=== PATIENT | female | born 1935 | race Caucasian/White ===

== ENCOUNTER 2023-02-28 08:55 | Outpatient (RCR) | payer MEDICARE, SELFPAY | END 2023-03-12 02:00 | disposition home or self-care (01) | LOC: PT 08:55 | PROVIDERS: PCP Family Medicine; Visit Provider Family Medicine | DX: M54.50 Low back pain, unspecified (principal) | CPT/HCPCS: 97110; 97140 ==

== ENCOUNTER 2023-03-28 07:15 | Outpatient (OUT) | payer MEDICARE, SELFPAY ==
[2023-03-28 09:15] LABS: Anion Gap 13.2; BUN Creatinine Ratio 28.6; Calcium 9.1 mg/dL (8.5-10.1); Carbon Dioxide 27.4 mmol/L (21.0-32.0); Chloride 101 mmol/L (98-107); Chol HDL Ratio 2.6; Cholesterol 134 mg/dL (<=200); Estimated GFR (African America 49 (>=60); Estimated GFR (Non-African Ame 40 (>=60); Glucose 119 mg/dL (74-106); HDL Cholesterol 51 mg/dL (40-60); LDL Cholesterol Calculated 72.2 mg/dL; Potassium 4.6 mmol/L (3.5-5.1); Sodium 137 mmol/L (136-145); Triglycerides 54 mg/dL (<=150); VLDL CHOLESTEROL 10.8 mg/dL
== END 2023-03-28 07:16 | disposition home or self-care (01) ==
LOC: LAB 07:18
PROVIDERS: PCP Family Medicine; Visit Provider Internal Medicine Interventional Cardiology
DX: I25.10 Atherosclerotic heart disease of native coronary artery without angina pectoris (principal); I50.22 Chronic systolic (congestive) heart failure
CPT/HCPCS: 36415; 80048; 80061

== ENCOUNTER 2023-08-30 08:43 | Outpatient (OUT) | payer MEDICARE, SELFPAY ==
--- NOTE | 2023-08-30 09:29 | CA_ITS ---
Patient Name: FEDE DE LEON MR#: [id number] : 1935 Exam Date: 08/30/2023 Ordering Doctor: DR DEVIN KELSEY M.D. ECHOCARDIOGRAM REPORT PROCEDURE: CA ECHO DOPPLER COMPLETE INDICATIONS: Congestive heart failure, pacemaker, left mastectomy, open heart surgery, diabetes COMPARISON: None. DESCRIPTION: COMPLETE ECHOCARDIOGRAM Real-time transthoracic echocardiography with 2D, M-mode, spectral and color flow Doppler performed. QUALITY: Technical quality was good. 64 , 140# , BSA LEFT VENTRICLE: Mild dilatation. Normal left ventricular wall thickness. Systolic function is difficult to assess due to poor sound transmission but appears moderately reduced. LV EF: Moderately reduced left ventricular ejection fraction, (35-40%). DIASTOLIC: Diastolic function is indeterminate. ATRIAL SEPTUM: LEFT ATRIUM: Mild dilatation. RIGHT ATRIUM: Mild dilatation. RIGHT VENTRICLE: Normal chamber size. Normal systolic function. Pacer wire present. TRICUSPID VALVE: Normal mobility and thickness. Status post ring repair with no stenosis with mild regurgitation. No evidence of pulmonary hypertension. RVSP 27 mmHg MITRAL VALVE: Mildly thickened with normal mobility. No evidence of mitral valve stenosis. Mild mitral annular calcification. Mild mitral regurgitation. AORTIC VALVE: Normal trileaflet appearance. Normal leaflet mobility. No evidence of aortic valve stenosis. Multifocal calcifications. Mild aortic regurgitation. AORTIC ROOT: Normal diameter and appearance. PULMONIC VALVE: Normal thickness and mobility. No stenosis. Trivial regurgitation. PERICARDIUM: No evidence of pericardial effusion. IVC: Collapses with inspirations. IVC is normal in size. PLEURA: CONCLUSION: 1. The left ventricle is mildly dilated. Systolic function is difficult to assess due to poor sound transmission but appears moderately reduced. LVEF is 35 to 40%. 2. Normal right ventricular size and systolic function. 3. Mild biatrial dilatation. 4. Mild tricuspid, mitral and aortic regurgitation. 5. Normal right-sided pressures. 6. Consider a MUGA scan for further assessment of the left ventricular systolic function. Adult Echocardiography Procedure Report Left Ventricle LVEDD (3.7 - 5.6 cm): 5.09 cm LVESD (2.2 - 4.0 cm): 3.87 cm LVIVS thickness (0.6 - 1.2 cm): 0.53 cm LVPW thickness (0.5 - 1.0 cm): 0.60 cm e': 0.07 m/s E - e': 9.20 LVOT Max Gradient: 2.60 mm[Hg] LVOT Area (cm2): 0.81 m/s Peak Velocity (LVOT): 0.81 m/s Mean Velocity (LVOT): 0.56 m/s LVOT Diameter 2.01 cm Left Atrium LA Volume Index (2D A2C): 25.30 ml/m2 Left Atrium Systolic Dimension: 3.57 cm Mitral Valve MV E to A Ratio: 0.97 Mitral Valve A-Wave Peak Velocity: 0.66 m/s Mitral Valve E-Wave Peak Velocity: 0.65 m/s Right Ventricle Aorta AO Root Diam: 3.19 cm Ascending Ao Diam: 2.84 cm Aortic Valve AoV Area (Peak Erasmo): 2.39 cm2, 2.39 cm2 AoV Area (VTI): 2.38 cm2, 2.38 cm2 Peak Velocity(Antegrade Flow): 1.06 m/s Peak Gradient(Antegrade Flow): 4.53 mm[Hg] Mean Velocity(Antegrade Flow): 0.77 m/s Mean Gradient(Antegrade Flow): 2.63 mm[Hg] Velocity Time Integral: 23.85 cm Tricuspid Valve Peak Velocity (Regurgitant Flow): 2.29 m/s, 2.46 m/s Pulmonic Valve Mean Gradient: 2.01 mm[Hg] Mean Velocity: 0.67 m/s Peak Velocity: 1.05 m/s, 0.87 m/s Peak Gradient: 3.02 mm[Hg], 4.38 mm[Hg] Right Atrium Right Atrium Systolic Pressure: 41.97 ml, 41.97 ml Dictated by: Devin Kelsey M.D. on 08/30/2023 at 19:51 Approved by: Devin Kelsey M.D. on 08/30/2023 at 20:01
== END 2023-08-30 08:44 | disposition home or self-care (01) ==
LOC: CARD 08:44
PROVIDERS: PCP Internal Medicine; Visit Provider Internal Medicine Interventional Cardiology
DX: I50.22 Chronic systolic (congestive) heart failure (principal)
CPT/HCPCS: 93306

== ENCOUNTER 2024-01-08 10:14 | Emergency (ER) | payer MEDICARE, SELFPAY ==
[2024-01-08 10:21] VITALS: BP 115/64; PULSE 64; TEMP 36.5; O2SAT 100; BMI 24.0
--- NOTE | 2024-01-08 10:34 | ED_ITS ---
HPI HPI - General Adult General Chief complaint: Head Injury Stated complaint: FALL Time Seen by Provider: 01/08/24 10:33 Source: patient Mode of arrival: walk-in Limitations: no limitations History of Present Illness HPI narrative: Patient is a 88-year-old female who is presenting to the ER today with chief complaint of a trip and fall against a lower cabinet at home. This was witnessed by the daughter Who is at bedside. Patient takes no blood thinners. Patient has minimal headache, no nausea or vomiting, no loss of consciousness. Patient has 2 superficial abrasions above the left eyebrow, mild ecchymosis noted to the lateral aspect of left eye as well. Patient has no significant headache, no neck pain, no other acute complaints. Patient does have mild ecchymosis noted distal to left knee. Patient was in the kitchen, patient was walking by a chair, tripped on the foot of the chair, falling forward. Patient tried to catch herself, therefore taking a few more steps, gaining momentum per daughter, and then falling down on her left knee and hitting the left side of her head against a cabinet. Patient had no loss of consciousness. No blood thinners. No neck pain. Patient has mild bruising underneath her left knee, no other acute complaints. This injury happened this morning. Patient was a home with her . 2 daughters at bedside. All systems are negative except as noted/marked. All systems reviewed and otherwise negative. Nurses note and vital signs reviewed and patient is not hypoxic. General: The patient appears well and in no apparent distress. Patient is resting comfortably on cart. Patient is not toxic, lethargic, or listless Skin: Warm, dry, no pallor noted. There is no rash noted. No petechiae, purpura. Head: Normocephalic, Patient has no midline or paracervical tenderness to palpation. Full range of cervical motion with no difficulty. Patient has a very small avulsion, approximately 3 mm above the left eyebrow, skin is laying down nicely. Patient has a jagged 0.25 cm superficial abrasion/laceration that does not spread gap open. Patient has mild ecchymosis noted to the lateral aspect of her left eye. Eye: Normal conjunctiva, no drainage, EOMI. PERRL. Patient has equal ocular motion with no difficulty, no signs of entrapment. No retrobulbar hematoma, no globe rupture, patient has mild to moderate tenderness to palpation to the superior lateral aspect of her orbital bones, no other orbital bone pain noted. Ears, Nose, Mouth, and Throat: oral mucosa is moist. Patient has no tenderness to palpation to her nasal bridge. Nares patent. Mouth without vesicles. Cardiovascular: Regular Rate and Rhythm, no murmur, gallop, rub Respiratory: Patient is in no distress, no accessory muscle use, lungs are clear to auscultation, no wheezing, rales or rhonchi Back: non-tender, no CVA tenderness bilaterally to percussion. No CT LS midline pain GI: no tenderness to palpation, no masses appreciated. No rebound, guarding, or rigidity noted. No distention Musculoskeletal: Patient has full range of motion of all of the extremities, no motor, sensory, or focal neurological deficits Neurological: A&O x4, normal speech Psychiatric: Cooperative Related Data Home Medications ?Medication ?Instructions ?Recorded ?Confirmed atorvastatin 40 mg tablet 40 mg PO DAILY 01/08/24 01/08/24 carvedilol 6.25 mg tablet 6.25 mg PO BID 01/08/24 01/08/24 empagliflozin 10 mg tablet 10 mg PO DAILY 01/08/24 01/08/24 (Jardiance) lisinopril 2.5 mg tablet 2.5 mg PO DAILY 01/08/24 01/08/24 potassium chloride 20 mEq 20 meq PO DAILY 01/08/24 01/08/24 tablet,extended release(part/cryst) (Klor-Con M) spironolactone 25 mg tablet 12.5 mg PO DAILY 01/08/24 01/08/24 Allergies Allergy/AdvReac Type Severity Reaction Status Date / Time cefdinir [From Omnicef] Allergy Severe Verified 01/08/24 10:21 nitrofurantoin Allergy Severe Verified 01/08/24 10:21 [From Macrobid] Opioid HPI Opioid Management Most Recent Opioid Data: 2 Last Pain Scale 2 01/08/24 10:40 Last MAR Pain Assessment 01/08/24 10:40 Exam Constitutional Vital Signs, click to edit/add: Last Vital Signs Temp 97.7 F 01/08/24 10:21 Pulse 84 01/08/24 14:05 Resp 16 01/08/24 14:05 BP 118/74 01/08/24 14:05 Pulse Ox 99 01/08/24 14:05 O2 Del Method Room Air 01/08/24 14:05 Course Vital Signs Vital signs: Vital Signs Temperature 97.7 F 01/08/24 10:21 Pulse Rate 64 01/08/24 10:21 Respiratory Rate 16 01/08/24 10:21 Blood Pressure 115/64 01/08/24 10:21 Pulse Oximetry 100 01/08/24 10:21 Oxygen Delivery Method Room Air 01/08/24 10:21 Temperature 97.7 F 01/08/24 10:21 Pulse Rate 84 01/08/24 14:05 Respiratory Rate 16 01/08/24 14:05 Blood Pressure 118/74 01/08/24 14:05 Pulse Oximetry 99 01/08/24 14:05 Oxygen Delivery Method Room Air 01/08/24 14:05 Medical Decision Making MDM Narrative Medical decision making narrative: Patient has no headache, mild pain to the Cipro lateral aspect of her left orbital bones, mild ecchymosis lateral left thigh, into superficial abrasions. Patient is not on blood thinners. We discussed ordering CT of the head, neck, or facial bones secondary to patient's symptoms. Patient has no neck pain. Full range of motion of cervical spinal no difficulty or pain. Patient has No headache. Secondary to patient's age, and the concern for 2 daughters at bedside, patient had a CT of the brain and orbital bones were noted To be extra cautious. Both CTs were negative. Education on closed head injury, using antibiotic ointment superficially to help with abrasions, and using ice were discussed at bedside at length along with signs and symptoms of closed head injury, what to look out for, what to return to the Emergency Room. Education on using ice and stretching In the next several days was discussed as well. Patient Possibility of having more pain tomorrow which most likely what happened. The next 3-5 days of patient's symptoms were discussed at bedside and may occur. No questions at discharge. Imaging Data CT scan - pelvis: Radiologist's impression: ITS Impressions Head CT 01/08/24 11:33 IMPRESSION: Moderate atrophy and white matter disease. Chronic small vessel ischemic changes are favored Left periorbital soft tissue swelling with no acute fracture Electronically authenticated by: BARRON RIOJAS Date: 01/08/2024 12:[address] 01/08/24 11:33 IMPRESSION: Moderate atrophy and white matter disease. Chronic small vessel ischemic changes are favored Left periorbital soft tissue swelling with no acute fracture Electronically authenticated by: BARRON RIOJAS Date: 01/08/2024 12:40 Discharge Plan Discharge Stand Alone Forms: Portal Instructions Chief Complaint: Head Injury Clinical Impression: Closed head injury, Facial contusion, Facial abrasion, Fall Patient Disposition: Home, Self-Care Time of Disposition Decision: 13:35 Condition: Fair Prescriptions / Home Meds: No Action atorvastatin 40 mg tablet 40 mg PO DAILY carvedilol 6.25 mg tablet 6.25 mg PO BID Jardiance 10 mg tablet 10 mg PO DAILY lisinopril 2.5 mg tablet 2.5 mg PO DAILY potassium chloride [Klor-Con M20] 20 mEq tablet,ER particles/crystals 20 meq PO DAILY spironolactone 25 mg tablet 12.5 mg PO DAILY Print Language: Luxembourgish Instructions: Head Injury (ED), Abrasion (ED), Fall Prevention (ED), Facial Contusion (ED) Additional Instructions: Use topical antibiotic ointment 3-4 times a day for the next 1 to 2 weeks. Use ice 20 minutes on, 20 minutes off. Do not use heat. Alternate Tylenol and anti-inflammatories every 4 hours as needed for pain Education on close head injury was done at bedside and on discharge paperwork. Any other acute concerns return to ER. A copy of your CT of your head and your CT of your orbits was given to you and discussed at bedside Referrals: Shaikh Locke MD [Primary Care Provider] - 1 week Discharge Date/Time: 01/08/24 14:14
[2024-01-08] MEDS: ACETAMINOPHEN 500 MG TABLET PO (10:40)
[2024-01-08] MEDS: BACITRACIN OINTMENT 28.4 GM TUBE 1 APPLIC TOPICAL (10:41)
[2024-01-08] MEDS: ADACEL DIPH,PERTUSS(ACELL),TET VAC/PF 0.5 ML ADULT SYRINGE IM (11:07)
--- NOTE | 2024-01-08 11:33 | CT_ITS ---
The [address] [address] Patient Name: FEDE DE LEON MRN: [id number] date: 1935 Sex: F Assigned Patient Location: ER Current Patient Location: ER Accession/Order Number: [id number] Exam Date: 01/08/2024 11:45 Report Date: 01/08/2024 12:40 At the request of: TRAVIS LOPES Procedure: CT orbit BI wo con EXAMINATION: CT head/brain wo con, CT orbit BI wo con, 01/08/2024 11:45 AM EDT HISTORY: Trauma, pain COMPARISON: None. TECHNIQUE: CT scan of the head was performed without IV contrast. CT dose reduction technique was used, including Automated Exposure Control. FINDINGS: BRAIN: Moderate diffuse atrophy. Mild to moderate white matter hypoattenuation. No acute intracranial hemorrhage or mass CSF SPACES: No hydrocephalus, subarachnoid hemorrhage, or mass. Appropriate for age. SKULL: No fracture, mass, or other significant visible lesion. SINUSES: 3 mm of soft tissue attenuation posterior right maxillary sinus, mucoperiosteal thickening favored ORBITS: No fracture of the orbits is observed . Left periorbital soft tissue swelling OTHER: Negative CT/CT orbit BI wo con IMPRESSION: Moderate atrophy and white matter disease. Chronic small vessel ischemic changes are favored Left periorbital soft tissue swelling with no acute fracture Electronically authenticated by: BARRON RIOJAS Date: 01/08/2024 12:40
--- NOTE | 2024-01-08 11:33 | CT_ITS ---
The [address] [address] Patient Name: FEDE DE LEON MRN: [id number] date: 1935 Sex: F Assigned Patient Location: ER Current Patient Location: ER Accession/Order Number: [id number] Exam Date: 01/08/2024 11:45 Report Date: 01/08/2024 12:40 At the request of: TRAVIS LOPES Procedure: CT head/brain wo con EXAMINATION: CT head/brain wo con, CT orbit BI wo con, 01/08/2024 11:45 AM EDT HISTORY: Trauma, pain COMPARISON: None. TECHNIQUE: CT scan of the head was performed without IV contrast. CT dose reduction technique was used, including Automated Exposure Control. FINDINGS: BRAIN: Moderate diffuse atrophy. Mild to moderate white matter hypoattenuation. No acute intracranial hemorrhage or mass CSF SPACES: No hydrocephalus, subarachnoid hemorrhage, or mass. Appropriate for age. SKULL: No fracture, mass, or other significant visible lesion. SINUSES: 3 mm of soft tissue attenuation posterior right maxillary sinus, mucoperiosteal thickening favored ORBITS: No fracture of the orbits is observed . Left periorbital soft tissue swelling OTHER: Negative CT/CT head/brain wo con IMPRESSION: Moderate atrophy and white matter disease. Chronic small vessel ischemic changes are favored Left periorbital soft tissue swelling with no acute fracture Electronically authenticated by: BARRON RIOJAS Date: 01/08/2024 12:40
[2024-01-08 14:05] VITALS: BP 118/74; PULSE 84; O2SAT 99
== END 2024-01-08 14:14 | disposition home or self-care (01) ==
PROVIDERS: Emergency Provider Emergency Medicine; PCP Internal Medicine
DX: S09.8XXA Other specified injuries of head, initial encounter (principal); S00.83XA Contusion of other part of head, initial encounter; S00.81XA Abrasion of other part of head, initial encounter; W01.198A Fall on same level from slipping, tripping and stumbling with subsequent striking against other object, initial encounter; Z79.899 Other long term (current) drug therapy; Z23 Encounter for immunization
CPT/HCPCS: 70450; 70480; 90471; 90715; 99284

== ENCOUNTER 2024-01-27 10:57 | Outpatient (RCR) | payer MEDICARE, SELFPAY | END 2024-03-06 11:31 | disposition home or self-care (01) | LOC: PT 10:57 | PROVIDERS: PCP Internal Medicine; Visit Provider Internal Medicine | DX: M54.9 Dorsalgia, unspecified (principal) | CPT/HCPCS: 20561; 97110; 97140; 97161 ==

== ENCOUNTER 2024-02-17 14:04 | Outpatient (OUT) | payer MEDICARE, SELFPAY ==
--- NOTE | 2024-02-17 14:00 | NM_ITS ---
[address] [address] Patient Name: FEDE DE LEON MRN: [id number] date: 1935 Sex: F Assigned Patient Location: [place] Current Patient Location: Accession/Order Number: [id number] Exam Date: 02/17/2024 14:00 Report Date: 02/18/2024 08:55 At the request of: DEVIN KELSEY Procedure: NM muga NUCLEAR MEDICINE REST GATED CARDIAC STUDY (MUGA) HISTORY: Chronic systolic heart failure. Breast cancer. Syncope. COMPARISON: None. METHOD: Following the injection of 24.2 mCi of [id number], a routine MUGA study was obtained. Appropriate computer-assisted analysis of the data was performed. FINDINGS: There is mild decreased left ventricular contractility. The left ventricular ejection fraction is decreased at 46%. [place] muga IMPRESSION: Decreased LVEF = 46%. Electronically authenticated by: SHARLA BERNARD Date: 02/18/2024 08:55
== END 2024-02-17 14:05 | disposition home or self-care (01) ==
LOC: NM 14:04
PROVIDERS: PCP Internal Medicine; Visit Provider Internal Medicine Interventional Cardiology
DX: I50.22 Chronic systolic (congestive) heart failure (principal); Z85.3 Personal history of malignant neoplasm of breast; R55 Syncope and collapse
CPT/HCPCS: 78472; A9560

== ENCOUNTER 2024-08-12 07:40 | Outpatient (OUT) | payer MEDICARE, SELFPAY ==
--- OUTSIDE RECORDS SUMMARY | 2024-08-12 07:45 | XMS_ITS | CCD ---
Author Organization [facility] Care Team Providers Care Senior Electrical Controls Engineer Name Role Phone PHYSICIAN, DEFAULT Unavailable Unavailable PHYSICIAN, DEFAULT Unavailable Unavailable CHUYITA PETERS Unavailable Unavailable PHYSICIAN, DEFAULT Unavailable Unavailable PHYSICIAN, DEFAULT Unavailable Unavailable FRAN, CHUYITA Unavailable Unavailable PHYSICIAN, DEFAULT Unavailable Unavailable PHYSICIAN, DEFAULT Unavailable Unavailable FRAN, CHUYITA Unavailable Unavailable TuanEstrlelita Attending Unavailable FRAN, DR SALGUERO Attending Unavailable FRAN, DR SALGUERO Admitting Unavailable FRAN, DR SALGUERO Primary Care Unavailable FRAN, DR SALGUERO Primary Care Unavailable MOUKADEVIN WALTER Admitting Unavailable MOUKARBEL, DEVIN Attending Unavailable ZIEBER, DR ERNIE Casey Consulting Unavailable MOUKARBEL, DEVIN Consulting Unavailable FRAN, DR SALGUERO Primary Care Unavailable MOUKARBELDEVIN Admitting Unavailable MOUKARBEL, DEVIN Consulting Unavailable MOUKAJOSE ANGEL, DEVIN Attending Unavailable MILAN FLOWERS Attending Unavailable MOUKARBEL, DEVIN Attending Unavailable SHERRIMARIA DEL CARMEN Manriquez Referring Unavailable SHERRI, MARIA DEL CARMEN Referring Unavailable MOUKARBEL, DEVIN Attending Unavailable Maddox SEX THERAPIST-RESTAURANT SHIFT SUPERVISOR, Jose N Primary Care Pr ovider Fran FITZPATRICK, Chuyita Aranda Unavailable Ray Banda MD Primary Care Provider Varsha WIND TUNNEL TECHNICIAN, Jose Unavailable Adia Reynolds Unavailable ATRUN OLIVIER Referring Unavailable FAWEVELYND, LADD Primary Care Unavailable FAMAEVE, LADD Referring Unavailable FAWWAD, LADD Primary Care Unavailable ANNA MELENDEZ Referring Unavailable FAWWAD, LADD Primary Care Unavailable JORY, LADD Referring Unavailable MACD, LADD Primary Care Unavailable MADDOX, JOSE N Referring Unavaila ble MADDOX, JOSE N Primary Care Unavaila ble SWAPNIL RAMÍREZ Attending Unavailable SHAIKH CORLEY Referring Unavailable MADDOX, JOSE N Primary Care Unavaila ble ANNA MELENDEZ Referring Unavailable MADDOX, JOSE N Primary Care Unavaila ble Thuan FLORES, Adilia Unavailable Elliott Hendrix MD Primary Care Provider Devin Kelsey MD Unavailable Era FITZPATRICK, Saurav Mosqueda Unavailable Lili FLORES, Adia Unavailable SHAIKH CORLEY Attending Unavailable SHAIKH CORLEY Attending Unavailable SHAIKH CORLEY Attending Unavailable JOSE MADDOX Attending UnavailMARIELA Ramos Attending Unavailable ELLIOTT HENDRIX Attending Unavailable ELLIOTT HENDRIX Attending Unavailable Allergies Allergy Classification Reported Allergen(s) Allergy Type Date of Onset Reaction(s) Facility (2 sources) cefdinir; Translations: [OMNICEF] Drug Allergy 3 [facility] Repository (2 sources) Nitrofurantoin Drug Allergy 3 [facility] Repository (13 sources) cefdinir; Translations: [CEFDINIR] Drug Allergy 4 Other [facility] Repository (1 source) NITROFURANTOIN MONOHYD/M-CRYST; Translations: [NITROFURANTOIN MONOHYD/M-CRYST] Propensity to adverse reactions to drug (disorder) 4 [facility] Repository (12 sources) Nitrofurantoin; Translations: [NITROFURANTOIN] Drug Allergy 3 Other [facility] Medications Current Medications Medication Drug Class(es) Dates Sig (Normalized) Sig (Original) acetaminophen 500 mg oral tablet (11 sources) Start: 11-06-2018 take 1 tablet by mouth every eight hours as needed for pain acetaminophen (Tylenol) 500 MG tablet Take 1 tablet by mouth every 8 (eight) hours if needed for moderate pain 11/06/2018 Active take 1 tablet by henrietta th every eight hours as needed for pain acetaminophen (TYLENOL ARTHRITIS) 650 mg 8 hr tablet Take 1 tablet (650 mg total) by mouth every 8 (eight) hours as needed for pain. Active acetaminophen 325 mg / HYDROcodone bitartrate 5 mg oral tablet (10 sources) Opioid Agonist Start: 07-28-2024 End: 08-27-2024 take 1 tablet by mouth twice daily as needed for pain HYDROcodone-acetaminophen (Ora) 5-325 MG tablet Indications: Chronic pain syndrome Take 1 tablet by mouth 2 (two) times a day as needed for moderate pain 60 tablet 07/28/2024 08/27/2024 Active Start: 06-18-2024 End: 07-18-2024 take 1 tablet by mouth once HYDROcodone-acetaminophen (Ora) 5-325 MG tablet Indications: Lumbosacral spondylosis without myelopathy Take 1 tablet by mouth every 12 (twelve) hours if needed for severe pain 60 tablet 06/18/2024 07/18/2024 End: 07-28-2024 take 1 tablet by mouth once daily HYDROcodone-acetaminophen (Ora) 5-325 MG tablet Take 1 tablet by mouth Daily 07/28/2024 Discontinued (Reorder) take 1 tablet by henrietta th twice daily as needed for pain HYDROcodone-acetaminophen (NORCO) 5-325 mg per tablet Take 1 tablet by mouth 2 (two) times a day as needed for pain. Active aspirin 81 mg delayed release oral tablet (11 sources) Platelet Aggregation Inhibitor, Nonsteroidal Anti-inflammatory Drug take 1 tablet by mouth once daily aspirin 81 MG EC tablet take 1 tablet by oral route every day Oral Active atorvastatin 40 mg oral tablet (11 sources) HMG-CoA Reductase Inhibitor take 1 tablet by mouth once daily atorvastatin (Lipitor) 40 MG tablet take 1 tablet by oral route every day Oral Active B-complex with vitamin C tablet (1 source) take 1 tablet by mouth in the morning B-complex with vitamin C tablet Take 1 tablet by mouth in the morning. Active Calcium (10 sources) Phosphate Binder, Calcium calcium 150 MG tablet as directed Orally Active calcium carbonate 1250 mg / cholecalciferol 200 unt oral tablet (1 source) Vitamin D take 1 tablet by mouth once in the morning calcium carbonate-vitamin D3 (OSCAL 500 + D) 500 mg(1,250mg) -200 units per tablet Take 1 tablet by mouth in the morning and 1 tablet in the evening. Take with meals. Active carvedilol 3.125 mg oral tablet (11 sources) alpha-Adrenergic Carolina, beta-Adrenergic Carolina Start: take 1 tablet by mouth in the morning carvedilol (Coreg) 3.125 MG tablet Indications: Chronic systolic heart failure (CMS/HCC) , Essential hypertension (CMS/HCC) Take 1 tablet (3.125 mg) by mouth in the morning and 1 tablet (3.125 mg) in the evening. Take with meals. 180 tablet 03/26/2024 Active take 1 tablet by henrietta th in the morning, then take 1 tablet by mouth at mealtime carvediloL (COREG) 6.25 mg tablet Take 1 tablet (6.25 mg total) by mouth in the morning and 1 tablet (6.25 mg total) in the evening. Take with meals. Active cholecalciferol 0.025 mg oral capsule (10 sources) Vitamin D cholecalciferol (Vitamin D-3) 25 MCG (1000 UT) capsule Vitamin D3 1000 Active empagliflozin 10 mg oral tablet (11 sources) Sodium-Glucose Cotransporter 2 Inhibitor take 1 tablet by mouth in the morning empagliflozin (Jardiance) 10 MG Take 1 tablet by mouth in the morning. Active ezetimibe 10 mg oral tablet (10 sources) Dietary Cholesterol Absorption Inhibitor Start: End: take 1 tablet by mouth in the morning ezetimibe (Zetia) 10 MG tablet Take 10 mg by mouth in the morning. 03/13/2024 03/13/2025 Active lisinopril 2.5 mg oral tablet (11 sources) Angiotensin Converting Enzyme Inhibitor take 1 tablet by mouth once daily lisinopril 2.5 MG tablet take 1 tablet by oral route every day Oral Active magnesium oxide 400 mg oral tablet (1 source) take 1 tablet by mouth in the morning magnesium oxide (MAGOX) 400 mg tablet Take 1 tablet (400 mg total) by mouth in the morning. Active spironolactone 25 mg oral tablet (11 sources) Aldosterone Antagonist Start: 018 take 0.5 tablet by mouth once daily spironolactone (Aldactone) 25 MG tablet Take 0.5 tablets by mouth 1 (one) time each day. 08/27/2018 Active take 1 tablet by mouth in the mo rning spironolactone (ALDACTONE) 25 mg tablet Take 1 tablet (25 mg total) by mouth in the morning. Active Completed/Discontinued Medications Medication Drug Class(es) Dates Sig (Normalized) Sig (Original) Fluad Quadrivalent syringe (5 sources) Start: 07-11-2023 End: 07-16-2024 Fluad Quadrivalent syringe Inject 0.5 mL into the shoulder, thigh, or buttocks 1 (one) time 07/11/2023 07/16/2024 Discontinued (Therapy completed) Start: 07-11-2023 Fluad Quadriva lent syringe Inject 0.5 mL into the shoulder, thigh, or buttocks 1 (one) time 07/11/2023 Active furosemide 40 mg oral tablet (6 sources) Loop Diuretic End: 07-16-2024 furosemide (Lasix) 40 MG tablet 1 (one) time each day at the same time. 07/16/2024 Discontinued (Therapy completed) take 1 tablet by mouth twice blanquita ly furosemide (LASIX) 40 mg tablet Take 1 tablet (40 mg total) by mouth 2 (two) times a day. Active magnesium gluconate 550 mg oral tablet (5 sources) End: 07-16-2024 take 1 tablet by mouth in the morning magnesium 30 MG tablet Take 1 tablet by mouth in the morning. 07/16/2024 Discontinued (Therapy completed) microencapsulated potassium chloride 20 meq extended release oral tablet (6 sources) End: 07-16-2024 potassium chloride CR (KLOR-CON) 20 MEQ ER tablet 1 (one) time each day at the same time. 07/16/2024 Discontinued (Therapy completed) take 1 dose by mouth in the morn ing potassium chloride (KLOR-CON) 20 mEq packet Take 1 packet (20 mEq total) by mouth in the morning and 1 packet (20 mEq total) before bedtime. Active Problems Active Problems Problem Classification Problem Date Documented Date Episodic/Chronic Administrative/social admission (2 sources) Advance directive discussed with patient; Translations: [Other specified counseling] 07-08-2024 Episodic Cancer of breast (5 sources) History of malignant neoplasm of breast; Translations: [Personal history of malignant neoplasm of breast] Onset: 07-28-2024 07-28-2024 Episodic Cardiac dysrhythmias (12 sources) Ventricular tachycardia; Translations: [Ventricular tachycardia] Onset: 02-11-2023 02-11-2023 Chronic Chronic kidney disease (12 sources) Chronic kidney disease stage 3B ; Translations: [Stage 3b chronic kidney disease (HCC)] Onset: 02-11-2023 02-11-2023 Chronic Chronic kidney disease (4 sources) Chronic kidney disease; Translations: [Chronic kidney disease, stage 3b] Onset: 03-20-2023 Conduction disorders (20 sources) Encounter for adjustment and management of automatic implantable cardiac defibrillator; Translations: [Presence of cardiac pacemaker] Onset: 04-30-2013 Resolved: 07-16-2024 Chronic Congestive heart failure; nonhypertensive (20 sources) Acute combined systolic (congestive) and diastolic (congestive) heart failure; Translations: [Chronic systolic (congestive) heart failure] Onset: 04-30-2013 Chronic Coronary atherosclerosis and other heart disease (20 sources) Atherosclerotic heart disease of [place] coronary artery without angina pectoris; Translations: [Coronary atherosclerosis] Onset: 01-22-2023 Chronic Diabetes mellitus with complications (17 sources) Disorder of kidney due to diabetes mellitus; Translations: [Type 2 diabetes mellitus with diabetic nephropathy] Onset: 02-11-2023 02-11-2023 Chronic Disorders of lipid metabolism (20 sources) Hyperlipidemia; Translations: [Hyperlipidemia, unspecified] Onset: 02-11-2023 Resolved: 07-16-2024 02-11-2023 Chronic Essential hypertension (13 sources) Essential hypertension; Translations: [Essential (primary) hypertension] Onset: 02-11-2023 02-11-2023 Chronic Heart valve disorders (11 sources) Rheumatic disorders of both mitral and aortic valves; Translations: [Tricuspid valve disorder, non-rheumatic] Onset: 04-30-2013 03-26-2024 Chronic Nonspecific chest pain (2 sources) Other chest pain; Translations: [Other chest pain] Onset: 06-08-2024 Episodic Other acquired deformities (9 sources) Postural kyphosis; 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, cervicothoracic region] Onset: 07-16-2024 07-16-2024 Chronic Other aftercare (4 sources) Drug therapy finding; Translations: [Other alf (current) drug therapy] Onset: 07-28-2024 07-28-2024 Episodic Other aftercare (4 sources) Polypharmacy ; Translations: [Other alf (current) drug therapy] Onset: 08-01-2024 08-01-2024 Episodic Other ear and sense organ disorders (3 sources) Asymmetrical sensorineural hearing loss; Translations: [Sensorineural hearing loss, bilateral] 07-13-2024 Chronic Other nervous system disorders (8 sources) Chronic pain; Translations: [Other chronic pain] Onset: 02-11-2023 02-11-2023 Chronic Other nervous system disorders (4 sources) Chronic pain syndrome; Translations: [Chronic pain syndrome] Onset: 02-11-2023 07-28-2024 Chronic Genet-; endo-; and myocarditis; cardiomyopathy (except that caused by tuberculosis or sexually transmitted disease) (3 sources) Primary cardiomyopathy; Translations: [Cardiomyopathy, unspecified] Onset: 04-30-2013 03-26-2024 Chronic Screening and history of mental health and substance abuse codes (4 sources) Patient encounter status; Translations: [Encounter for screening examination for other mental health and behavioral disorders] 07-08-2024 Episodic Spondylosis; intervertebral disc disorders; other back problems (12 sources) Lumbosacral spondylosis without myelopathy; Translations: [Spondylosis without myelopathy or radiculopathy, lumbosacral region] Onset: 02-11-2023 02-11-2023 Chronic Spondylosis; intervertebral disc disorders; other back problems (4 sources) Pain in thoracic spine; Translations: [Pain in thoracic spine] Onset: 06-24-2024 06-24-2024 Episodic Unclassified (3 sources) LOW BACK PAIN, UNSPECIFIED; Translations: [LOW BACK PAIN, UNSPECIFIED] Onset: 02-14-2023 Unclassified (1 source) Other ventricular tachycardia; Translations: [Other ventricular tachycardia] Onset: 08-02-2023 Unclassified (1 source) Low back pain, unspecified; Translations: [Low back pain, unspecified] Onset: 06-24-2024 Past or Other Problems Problem Classification Problem Date Documented Da te Episodic/Chronic Cancer of breast (10 sources) Primary malignant neoplasm of breast; Translations: [Malignant neoplasm of unspecified site of unspecified female breast] Onset: 11-30-2015 Resolved: 07-28-2024 03-26-2024 Chronic Coronary atherosclerosis and other heart disease (2 sources) Presence of aortocoronary bypass graft; Translations: [Presence of aortocoronary bypass graft] Onset: 08-02-2023 Episodic E Codes: Fall (10 sources) Fall; Translations: [Unspecified fall, initial encounter] Onset: 03-26-2024 Resolved: 07-16-2024 03-26-2024 Episodic Mood disorders (10 sources) Mood disorders Onset: 03-26-2024 03-26-2024 Other screening for suspected conditions (not mental disorders or infectious disease) (12 sources) Depression of left ventricular systolic function; Translations: [Abnormal result of cardiovascular function study, unspecified] Onset: 02-11-2023 02-11-2023 Episodic Residual codes; unclassified (2 sources) Other specified postprocedural states; Translations: [Other specified postprocedural states] Onset: 03-13-2024 Episodic Unclassified (1 source) LOW BACK PAIN, UNSPECIFIED; Translations: [LOW BACK PAIN, UNSPECIFIED] Onset: 02-12-2023 Unclassified (1 source) Other ventricular tachycardia; Translations: [Other ventricular tachycardia] Onset: 08-02-2023 Results Test Name Value Interpretation Reference Range Facility Drugs of abuse panel Screen (U)on 07-28-2024 Amphetamines Ql (U) Negative [facility] Barbiturates Ql (U) Negative [facility] Benzodiazepines Ql (U) Negative [facility] Benzoylecgonine Ql (U) Negative [facility] Carboxy tetrahydrocannabinol (Mec) [Mass/Mass] Negative [facility] Interpretation and review of laboratory results Normal [facility] Methadone (U) [Mass/Vol] Negative [facility] Methylenedioxymethamphetamin e Screen Ql (U) Negative [facility] Morphine (U) [Mass/Vol] Negative [facility] Opiates Ql (U) Negative [facility] oxyCODONE Ql (U) Negative [facility] Phencyclidine Ql (U) Negative [facility] Reference Lab Test ID Negative [facility] Tricyclic antidepressants [Mass/Vol] Negative [facility] BASIC METABOLIC PANLon 07-14 Anion gap [Moles/Vol] 9 mmol/L Normal 5-15 [facility] Comment on above: Performed By: #### C BC, BMP, 1751-7, 66376-0, 2777-1, 2731-8, 74736-3 #### [facility] ([id number]) [address], [address] [place] [address] Calcium [Mass/Vol] 9.5 mg/dL Normal 8.5-10.5 [facility] Comment on above: Performed By: #### Renetta BC, BMP, 1750-7, 84305-5, 2777-1, 2731-8, 86580-3 #### [facility] ([id number]) [address], [address] [place] [address] Chloride [Moles/Vol] 99 mmol/L Normal 98-109 [facility] Comment on above: Performed By: #### Renetta BC, BMP, 1750-, 44625-9, 2777-1, 2731-8, 84116-1 #### [facility] ([id number]) [address], [address] [place] [address] CO2 [Moles/Vol] 29 mmol/L Normal 22-32 [facility] Comment on above: Performed By: #### Renetta BC, BMP, 1750-7, 37667-6, 2777-1, 2731-8, 23129-6 #### [facility] ([id number]) [address], [address] [place] [address] Creatinine [Mass/Vol] 1.39 mg/dL High 0.40-1.00 [facility] Comment on above: Result Comment: METH OD TRACEABLE TO IDMS STANDARD Performed By: #### Renetta BC, BMP, 1750-7, 23531-4, 2777-1, 2731-8, 92421-2 #### [facility] ([id number]) [address], [address] [place] [address] GFR/1.73 sq M.predicted cornelius g non-blacks MDRD (S/P/Bld) [Vol rate/Area] 37 mL/min/{1.73_m2} Low >59 [facility] Comment on above: Result Comment: Reported eGFR is based on the CKD-EPI 2020 equation that does not use a race coefficient. Performed By: #### C BC, BMP, 175-7, 49709-6, 2777-1, 2731-8, 18462-4 #### [facility] ([id number]) [address], [address] [place] [address] Glucose [Mass/Vol] 121 mg/dL High 65-99 [facility] Comment on above: Performed By: #### C ZHEN, BMP, 1750-7, 74528-2, 2777-1, 2731-8, 60320-3 #### [facility] ([id number]) [address], [address] [place] [address] Potassium [Moles/Vol] 3.9 mmol/L Normal 3.5-5.0 [facility] Comment on above: Performed By: #### C BC, BMP, 1750-7, 22088-5, 2777-1, 2731-8, 29080-8 #### [facility] ([id number]) [address] [address] [place] [address] Sodium [Moles/Vol] 137 mmol/L Normal 134-146 [facility] [place] Comment on above: Performed By: #### C BC, BMP, 1750-7, 39526-1, 2777-1, 2731-8, 82984-9 #### [facility] ([id number]) [address], [address] [place] [address] Urea nitrogen [Mass/Vol] 32 mg/dL High 5-27 [facility] Comment on above: Performed By: #### C BC, BMP, 175-7, 57929-6, 2777-1, 2731-8, 67933-0 #### [facility] ([id number]) [address], [address] [place] [address] Auditory function testson 10 -14-2024 Right Ear: Mild sloping to profound sensorineural hearing loss above 250 Hz Left Ear: Mild to severe sensorineural hearing loss [facility] METABOLIC PANLon 06-24 Anion gap [Moles/Vol] 12 mmol/L Normal 5-15 [facility] Comment on above: Performed By: #### 2 4331-1 #### [facility] ([id number]) [address] [address] [place] [address] Calcium [Mass/Vol] 9.4 mg/dL Normal 8.5-10.5 [facility] [place] Comment on above: Performed By: #### 2 4331-1 #### [facility] ([id number]) [address] [address] [place] [address] Chloride [Moles/Vol] 101 mmol/L Normal 98-109 [facility] Comment on above: Performed By: #### 2 4331-1 #### [facility] ([id number]) [address] [address] [place] [address] CO2 [Moles/Vol] 24 mmol/L Normal 22-32 [facility] Comment on above: Performed By: #### 2 4331-1 #### [facility] ([id number]) [address] [address] [place] [address] Creatinine [Mass/Vol] 1.60 mg/dL High 0.40-1.00 [facility] Comment on above: Result Comment: METH OD TRACEABLE TO IDMS STANDARD Performed By: #### 2 4331-1 #### [facility] ([id number]) [address] [address] [place] [address] GFR/1.73 sq M.predicted cornelius g non-blacks MDRD (S/P/Bld) [Vol rate/Area] 31 mL/min/{1.73_m2} Low >59 [facility] Comment on above: Result Comment: Reported eGFR is based on the CKD-EPI 2020 equation that does not use a race coefficient. Performed By: #### 2 4331-1 #### [facility] ([id number]) [address], [address] [place] [address] Glucose [Mass/Vol] 111 mg/dL High 65-99 [facility] [place] Comment on above: Performed By: #### 2 4331-1 #### [facility] ([id number]) [address] [address] [place] [address] Potassium [Moles/Vol] 5.0 mmol/L Normal 3.5-5.0 [facility] Comment on above: Performed By: #### 2 4331-1 #### [facility] ([id number]) [address], [address] [place] [address] Sodium [Moles/Vol] 137 mmol/L Normal 134-146 [facility] [place] Comment on above: Performed By: #### 2 4331-1 #### [facility] ([id number]) [address], [address] [place] [address] Urea nitrogen [Mass/Vol] 43 mg/dL High 5-27 [facility] Comment on above: Performed By: #### 2 4331-1 #### [facility] ([id number]) [address], [address] [place] [address] CBC AND AUTO DIFFon 25-20 24 ABSOLUTE BASOPHIL 0.0 X10E9/L Normal 0.0-0.2 [facility] Comment on above: Performed By: #### 2 4331-1 #### [facility] ([id number]) [address] [address] [place] [address] ABSOLUTE NEUTROPHIL 3.8 X10E9/L Normal 1.5-6.6 [facility] Comment on above: Performed By: #### 2 4331-1 #### [facility] ([id number]) [address] [place] [address] Basophils/100 WBC (Bld) 0.8 % Normal [facility] Comment on above: Performed By: #### 2 4331-1 #### [facility] ([id number]) [address], [address] [place] [address] Eosinophils (Bld) [#/Vol] 0.2 10*3/uL Normal 0.0-0.4 [facility] Comment on above: Performed By: #### 2 4331-1 #### [facility] ([id number]) [address] [place] [address] Eosinophils/100 WBC (Bld) 2.7 % Normal [facility] Comment on above: Performed By: #### 2 4331-1 #### [facility] ([id number]) [address], [address] [place] [address] Erythrocyte distribution wid th (RBC) [Ratio] 15.5 % High 11.5-15.0 [facility] Comment on above: Performed By: #### 2 4331-1 #### [facility] ([id number]) [address], [address] [place] [address] Hematocrit (Bld) [Volume fraction] 43.0 % Normal 35-47 [facility] Comment on above: Performed By: #### 2 4331-1 #### [facility] ([id number]) [address] [address] [place] [address] Hemoglobin (Bld) [Mass/Vol] 14.4 g/dL Normal 11.7-15. 5 [facility] Comment on above: Performed By: #### 2 4331-1 #### [facility] ([id number]) [address], [address] [place] [address] Lymphocytes (Bld) [#/Vol] 1.4 10*3/uL Normal 1.0-3.5 [facility] Comment on above: Performed By: #### 2 4331-1 #### [facility] ([id number]) [address], [address] [place] [address] Lymphocytes/100 WBC (Bld) 22.9 % Normal [facility] Comment on above: Performed By: #### 2 4331-1 #### [facility] ([id number]) [address], [address] [place] [address] MCH (RBC) [Entitic mass] 31.8 pg Normal 27-34 [facility] Comment on above: Performed By: #### 2 4331-1 #### [facility] ([id number]) [address], [address] [place] [address] MCHC (RBC) [Mass/Vol] 33.6 g/dL Normal 32-36 [facility] Comment on above: Performed By: #### 2 4331-1 #### [facility] ([id number]) [address], [address] [place] [address] MCV (RBC) [Entitic vol] 95 fL Normal 80-100 [facility] Comment on above: Performed By: #### 2 4331-1 #### [facility] ([id number]) [address], [address] [place] [address] Monocytes (Bld) [#/Vol] 0.8 10*3/uL Normal 0-0.9 [facility] Comment on above: Performed By: #### 2 4331-1 #### [facility] ([id number]) [address], [address] [place] [address] Monocytes/100 WBC (Bld) 12.3 % Normal [facility] Comment on above: Performed By: #### 2 4331-1 #### [facility] ([id number]) [address], [address] [place] [address] Neutrophils/100 WBC (Bld) 61.3 % Normal [facility] Comment on above: Performed By: #### 2 4331-1 #### [facility] ([id number]) [address], [facility] [address] [place] [address] Platelet mean volume (Bld) [Entitic vol] 9.4 fL Normal 7-12 [facility] Comment on above: Performed By: #### 2 4331-1 #### [facility] ([id number]) [address], [facility] [address] [place] [address] Platelets (Bld) [#/Vol] 183 10*3/uL Normal 150-450 [facility] Comment on above: Performed By: #### 2 4331-1 #### [facility] ([id number]) [address], [facility] [address] [place] [address] RBC COUNT 4.54 X10E12/L Normal 3.80-5.20 [facility] Comment on above: Performed By: #### 2 4331-1 #### [facility] ([id number]) [address], [address] [address] WBC (Bld) [#/Vol] 6.2 10*3/uL Normal 4.0-11.0 [facility] Comment on above: Performed By: #### 2 4331-1 #### [facility] ([id number]) [address], [facility] [address] [place] [address] MAGNESIUMon 06-24-2024 Magnesium [Mass/Vol] 2.8 mg/dL High 1.8-2.6 [facility] Comment on above: Performed By: #### 2 4331-1 #### [facility] ([id number]) [address], [address] [place] [address] MICROALBUMIN - ALBUMIN:CREAT ININE URINE RATIOon 06-24-2024 ALB/CREAT RATIO 16.1 mg/g creat Normal 0.0-30.0 [facility] Comment on above: Performed By: #### 2 4331-1 #### [facility] ([id number]) [address], [address] [place] [address] Albumin DL <= 20 mg/L (U) [Mass/Vol] 1.5 mg/dL Normal 0.0-1.9 [facility] Comment on above: Performed By: #### 2 4331-1 #### [facility] ([id number]) [address], [address] [place] [address] URINE CREAT 93.40 mg/dL Normal [facility] Comment on above: Performed By: #### 2 4331-1 #### [facility] ([id number]) [address], [address] [place] [address] URINALYSISon 06-24-2024 Bilirubin Ql (U) Negative Normal NEG [facility] Comment on above: Performed By: #### 2 4331-1 #### [facility] ([id number]) [address], [address] [place] [address] BLOOD/HGB Trace Abnormal NEG [facility] Comment on above: Performed By: #### 2 4331-1 #### [facility] ([id number]) [address], [address] [place] [address] Color (U) YELLOW Normal YELLOW [facility] Comment on above: Performed By: #### 2 4331-1 #### [facility] ([id number]) [address], [address] [place] [address] Glucose Ql (U) >1000 Abnormal NEG [facility] Comment on above: Performed By: #### 2 4331-1 #### [facility] ([id number]) [address], [address] [place] [address] Ketones Ql (U) Negative Normal NEG [facility] Comment on above: Performed By: #### 2 4331-1 #### [facility] ([id number]) [address], [address] [place] [address] Leukocyte esterase Test stri p Ql (U) Large Abnormal NEG [facility] Comment on above: Result Comment: HIGH CONCENTRATIONS OF GLUCOSE MAY DECREASE THE REACTIVITY OF THE DIPSTICK LEUKOCYTE TEST PAD. Performed By: #### 2 4331-1 #### [facility] ([id number]) [address], [address] [place] [address] MUCOUS PRESENT Abnormal NONE [facility] Comment on above: Performed By: #### 2 4331-1 #### [facility] ([id number]) [address], [address] [place] [address] Nitrite Ql (U) Positive Abnormal NEG [facility] Comment on above: Performed By: #### 2 4331-1 #### [facility] ([id number]) [address], [address] [place] [address] pH (U) 5.5 [pH] Normal 5.0-8.5 [facility] Comment on above: Performed By: #### 2 4331-1 #### [facility] ([id number]) [address], [address] [place] [address] Protein Ql (U) Negative Normal NEG [facility] Comment on above: Performed By: #### 2 4331-1 #### [facility] ([id number]) [address], [address] [place] [address] R.B.CELLS 0 /hpf Normal 0-5 [facility] Comment on above: Performed By: #### 2 4331-1 #### [facility] ([id number]) [address], [address] [place] [address] Specific gravity (U) [Rel density] 1.020 Normal 1.003-1.03 5 [facility] Comment on above: Performed By: #### 2 4331-1 #### [facility] ([id number]) [address], [address] [place] [address] SQUAMOUS EPITHELIUM 1 /hpf Normal 0-5 [facility] Comment on above: Performed By: #### 2 4331-1 #### [facility] ([id number]) [address], [address] [place] [address] TURBIDITY CLEAR Normal CLEAR [facility] Comment on above: Performed By: #### 2 4331-1 #### [facility] ([id number]) [address], [address] [place] [address] Urobilinogen (U) [Mass/Vol] mg/dL Normal <1.1 [facility] Comment on above: Performed By: #### 2 4331-1 #### [facility] ([id number]) [address], [address] [place] [address] W.B.CELLS 17 /hpf High 0-5 [facility] Comment on above: Performed By: #### 2 4331-1 #### [facility] ([id number]) [address], [address] [place] [address] Vitamin D+Metabolites [Mass/ Vol]on 06-24-2024 VITAMIN D 25 HYD TOT 48.1 ng/mL Normal 30-100 [facility] Comment on above: Result Comment: Vitamin D status 25 [place] Vitamin D Deficiency <20 ng/mL Insufficiency 20-29 ng/mL Sufficiency 30-100 ng/mL Toxicity >100 ng/mL NOTE: A pediatric reference range has not been established by the clinical study manager of this kit. The [employer] recommends a Vitamin D level of = or >20ng/mL in infants and children. Performed By: #### 2 4331-1 #### [facility] ([id number]) [address] [place] [address] Office Visiton 06-08-2024 Follow-up visit [id number] Daysi Hood 1935 F Date Provider Department Center 06/08/2024 [facility] Family History Problem Relation Age of Onset Coronary artery disease Other Family Status - Relation Status Age at Other Level of Service:66573 [place] OFFICE/OUTPATIENT ESTABLISHED MOD MDM 30 MIN Reason for Visit and Comments: Chest Pain [786638] - Patient here because she had recent episode of chest pain. [facility] 3604-09-2024 37 LM on daughter Giovanna's VM. Also called patient's phone to make her aware, and LM. Normal [facility] 36on 04-08-2024 36 Good morning, Patients daughter called and states that she took her mother in recently to PCP for wellness check. Patients BP was 90/50.PCP recommended reducing her carvedilol to 3.125 mg. Daughter wanted to get the OK from you before doing so. Please advise. [facility] HGB A1C (GLYCO-HGB)on 2023 Glucose [Mass/Vol] 143 mg/dL Normal [facility] Comment on above: Performed By: #### 2 4331-1 #### [facility] ([id number]) [address] [place] [address] HbA1c (Bld) [Mass fraction] 6.6 % High 4.4-5.6 [facility] Comment on above: Result Comment: NOTE ADA Guidelines Result HgbA1c Normal : less than 5.7 % Prediabetes : 5.7 % to 6.4 % Diabetes : > 6.4 % Use with caution in patients with abnormal hemoglobin variants as the half-life of red blood cells and in vivo glycation rates are affected. Performed By: #### 2 4331-1 #### [facility] ([id number]) [address], [address] [place] [address] Lipid 1996 panelon 4 Cholesterol [Mass/Vol] 101 mg/dL Low 150-200 [facility] Comment on above: Performed By: #### 2 4331-1 #### [facility] ([id number]) [address], [address] [place] [address] Cholesterol in HDL [Mass/Vol] 45 mg/dL Normal >39 [facility] Comment on above: Result Comment: HDL <40 mg/dL - High Risk HDL > or = 40mg/dL- Desirable HDL >60 mg/dL - Negative Risk Performed By: #### 2 4331-1 #### [facility] ([id number]) [address], [address] [place] [address] Cholesterol in LDL [Mass/Vol] 44 mg/dL Normal <130 [facility] Comment on above: Result Comment: LDL <100 mg/dL - Desirable LDL >160 mg/dL - High Risk Performed By: #### 2 4331-1 #### [facility] ([id number]) [address], [address] [place] [address] Cholesterol in VLDL [Mass/Vol] 12 mg/dL Normal 0-30 [facility] Comment on above: Performed By: #### 2 4331-1 #### [facility] ([id number]) [address], [address] [place] [address] CHOLESTEROL:HDL 2.2 Normal 1.0-5.0 [facility] Comment on above: Performed By: #### 2 4331-1 #### [facility] ([id number]) [address] [place] [address] Triglyceride [Mass/Vol] 61 mg/dL Normal 27-150 P [facility] Comment on above: Performed By: #### 2 4331-1 #### [facility] ([id number]) [address] [place] [address] Office Visiton 03-13-2024 Follow-up visit [id number] Castillo 1935 F Date Provider Department Center 03/13/2024 DEVIN GARCIA Family History Problem Relation Age of Onset Coronary artery disease Other Family Status - Relation Status Age at Other Level of Service:37776 [place] OFFICE/OUTPATIENT ESTABLISHED MOD MDM 30 MIN Normal [facility] Orders Onlyon 02-18-2024 Orders Only [id number] Daysi Hood 1935 Date Provider Department Center 02/18/2024 DEVIN GARCIA Family History Problem Relation Age of Onset Coronary artery disease Other Family Status - Relation Status Age at Other Normal [facility] BASIC METABOLIC PANLon 01-13 Anion gap [Moles/Vol] 9 mmol/L Normal 5-15 [facility] Comment on above: Performed By: #### 2 4331-1 #### [facility] ([id number]) [address], [address] [place] [address] Calcium [Mass/Vol] 8.7 mg/dL Normal 8.5-10.5 [facility] Comment on above: Performed By: #### 2 4331-1 #### [facility] ([id number]) [address] [place] [address] Chloride [Moles/Vol] 106 mmol/L Normal 98-109 [facility] Comment on above: Performed By: #### 2 4331-1 #### [facility] ([id number]) [address], [address] [place] [address] CO2 [Moles/Vol] 24 mmol/L Normal 22-32 [facility] Comment on above: Performed By: #### 2 4331-1 #### [facility] ([id number]) [address], [address] [place] [address] Creatinine [Mass/Vol] 1.24 mg/dL High 0.40-1.00 [facility] Comment on above: Result Comment: METH OD TRACEABLE TO IDMS STANDARD Performed By: #### 2 4331-1 #### [facility] ([id number]) [address], [address] [place] [address] GFR/1.73 sq M.predicted cornelius g non-blacks MDRD (S/P/Bld) [Vol rate/Area] 42 mL/min/{1.73_m2} Low >59 [facility] Comment on above: Result Comment: Reported eGFR is based on the CKD-EPI 2020 equation that does not use a race coefficient. Performed By: #### 2 4331-1 #### [facility] ([id number]) [address], [address] [place] [address] Glucose [Mass/Vol] 100 mg/dL High 65-99 [facility] Comment on above: Performed By: #### 2 4331-1 #### [facility] ([id number]) [address], [address] [place] [address] Potassium [Moles/Vol] 4.8 mmol/L Normal 3.5-5.0 [facility] Comment on above: Performed By: #### 2 4331-1 #### [facility] ([id number]) [address], [address] [place] [address] Sodium [Moles/Vol] 139 mmol/L Normal 134-146 [facility] Comment on above: Performed By: #### 2 4331-1 #### [facility] ([id number]) [address], [address] [place] [address] Urea nitrogen [Mass/Vol] 33 mg/dL High 5-27 [facility] Comment on above: Performed By: #### 2 4331-1 #### [facility] ([id number]) [address], [address] [place] [address] ALBUMINon 12-17-2023 Albumin [Mass/Vol] 4.3 g/dL Normal 3.2-5.3 [facility] Comment on above: Performed By: #### C BC, BMP, 175-7, 87111-7, 2777-1, 2731-8, 18714-5 #### [facility] ([id number]) [address], [address] [place] [address] BASIC METABOLIC PANLon 12-16 Anion gap [Moles/Vol] 11 mmol/L Normal 5-15 [facility] Comment on above: Performed By: #### C BC, BMP, 1750-7, 68333-4, 2777-1, 2731-8, 63147-4 #### [facility] ([id number]) [address], [address] [place] [address] Calcium [Mass/Vol] 9.7 mg/dL Normal 8.5-10.5 [facility] Comment on above: Performed By: #### C BC, BMP, 1750-7, 79922-3, 2777-1, 2731-8, 11780-4 #### [facility] ([id number]) [address], [address] [place] [address] Chloride [Moles/Vol] 105 mmol/L Normal 98-109 [facility] Comment on above: Performed By: #### C BC, BMP, 175-7, 67976-4, 2777-1, 2731-8, 38511-7 #### [facility] ([id number]) [address], [address] [place] [address] CO2 [Moles/Vol] 23 mmol/L Normal 22-32 [facility] Comment on above: Performed By: #### C MELVIN FONTAINE, 1750-, 36931-4, 7-1, 2731-8, 09961-8 #### [facility] ([id number]) [address], [address] [place] [address] Creatinine [Mass/Vol] 1.35 mg/dL High 0.40-1.00 [facility] Comment on above: Result Comment: METH OD TRACEABLE TO IDMS STANDARD Performed By: #### C MELVIN FONTAINE, 1751-03, , 2776-1, 273-8, 14752-2 #### [facility] ([id number]) [address], [address] [place] [address] GFR/1.73 sq M.predicted cornelius g non-blacks MDRD (S/P/Bld) [Vol rate/Area] 38 mL/min/{1.73_m2} Low >59 [facility] Comment on above: Result Comment: Reported eGFR is based on the CKD-EPI 2020 equation that does not use a race coefficient. Performed By: #### MELVIN LI, 1751-03, 97909-7, 2776-1, 2731-8, 76385-1 #### [facility] ([id number]) [address], [address] [place] [address] Glucose [Mass/Vol] 106 mg/dL High 65-99 [facility] Comment on above: Performed By: #### C ZHEN, MELVIN, 1751-03, 93890-6, 2776-, 273-8, 27320-7 #### [facility] ([id number]) [address], [address] [place] [address] Potassium [Moles/Vol] 4.6 mmol/L Normal 3.5-5.0 [facility] Comment on above: Performed By: #### C BC, BMP, 1750-7, 35304-9, 2777-1, 2731-8, 44019-1 #### [facility] ([id number]) [address], [facility] [address] [place] [address] Sodium [Moles/Vol] 139 mmol/L Normal 134-146 [facility] Comment on above: Performed By: #### C BC, BMP, 1750-7, 52765-7, 2777-1, 2731-8, 26318-0 #### [facility] ([id number]) [address] [address] [place] [address] Urea nitrogen [Mass/Vol] 39 mg/dL High 5-27 [facility] Comment on above: Performed By: #### C BC, BMP, 1750-7, 93734-2, 7-1, 273-8, 51701-9 #### [facility] ([id number]) [address], [facility] [address] [place] [address] COMPLETE BLOOD COUNTon 12-16 Erythrocyte distribution wid th (RBC) [Ratio] 15.0 % Normal 11.5-15.0 [facility] Comment on above: Performed By: #### C BC, BMP, 1750-7, 42117-7, 7-1, 2731-8, 13487-4 #### [facility] ([id number]) [address], [facility] [address] [place] [address] Hematocrit (Bld) [Volume fraction] 43.0 % Normal 35-47 [facility] Comment on above: Performed By: #### C BC, BMP, 1750-7, 97747-6, 7-1, 2731-8, 72055-6 #### [facility] ([id number]) [address] [address] [place] [address] Hemoglobin (Bld) [Mass/Vol] 14.3 g/dL Normal 11.7-15. 5 [facility] Comment on above: Performed By: #### C BC, BMP, 1750-7, 13946-3, 7-1, 2731-8, 74959-6 #### [facility] ([id number]) [address], [address] [place] [address] MCH (RBC) [Entitic mass] 31.4 pg Normal 27-34 [facility] Comment on above: Performed By: #### C BC, BMP, 1750-7, 10311-9, 7-1, 2731-8, 17106-3 #### [facility] ([id number]) [address], [address] [place] [address] MCHC (RBC) [Mass/Vol] 33.4 g/dL Normal 32-36 [facility] Comment on above: Performed By: #### Renetta FONTAINE, BMP, 1750-, 75564-8, 2776-1, 273-8, 63475-0 #### [facility] ([id number]) [address], [address] [place] [address] MCV (RBC) [Entitic vol] 94 fL Normal 80-100 [facility] Comment on above: Performed By: #### Renetta FONTAINE, BMP, 1750-, 59889-3, 2776-1, 2731-8, 98086-9 #### [facility] ([id number]) [address], [address] [place] [address] Platelet mean volume (Bld) [Entitic vol] 9.7 fL Normal 7-12 [facility] Comment on above: Performed By: #### Renetta BC, BMP, 1750-, 58769-0, 2776-1, 273-8, 17487-7 #### [facility] ([id number]) [address], [address] [place] [address] Platelets (Bld) [#/Vol] 202 10*3/uL Normal 150-450 [facility] Comment on above: Performed By: #### C BC, BMP, 1750-, 42113-1, 7-1, 2731-8, 32374-9 #### [facility] ([id number]) [address], [address] [place] [address] RBC COUNT 4.57 X10E12/L Normal 3.80-5.20 [facility] Comment on above: Performed By: #### C BC, BMP, 1751-03, 07361-7, 2776-1, 2731-8, 53971-2 #### [facility] ([id number]) [address], [address] [place] [address] WBC (Bld) [#/Vol] 5.9 10*3/uL Normal 4.0-11.0 [facility] Comment on above: Performed By: #### C BC, BMP, 1751-03, 62829-1, 2776-1, 2731-8, 71637-9 #### [facility] ([id number]) [address] [place] [address] MAGNESIUMon 12-17-2023 Magnesium [Mass/Vol] 2.7 mg/dL High 1.8-2.6 [facility] Comment on above: Performed By: #### C BC, BMP, 1751-03, 62742-0, 2776-, 273-8, 97179-7 #### [facility] ([id number]) [address], [address] [place] [address] MICROALBUMIN - ALBUMIN:CREAT ININE URINE RATIOon 12-17-2023 ALB/CREAT RATIO 27.8 mg/g creat Normal 0.0-30.0 [facility] Comment on above: Performed By: #### 2 4331-1 #### [facility] ([id number]) [address], [address] [place] [address] Albumin DL <= 20 mg/L (U) [Mass/Vol] 2.8 mg/dL High 0.0-1.9 [facility] Comment on above: Performed By: #### 2 4331-1 #### [facility] ([id number]) [address], [address] [place] [address] URINE CREAT 100.73 mg/dL Normal [facility] Comment on above: Performed By: #### 2 4331-1 #### [facility] ([id number]) [address], [address] [place] [address] PHOSPHORUSon 12-17-2023 Phosphate [Mass/Vol] 3.4 mg/dL Normal 2.4-4.9 [facility] Comment on above: Performed By: #### C BC, BMP, 1751-7, 27281-5, 2777-1, 2731-8, 14813-7 #### [facility] ([id number]) [address], [address] [place] [address] Parathyrin.intact [Mass/Vol] on 12-17-2023 PTH INTACT 66 pg/mL Normal 12-88 [facility] Comment on above: Performed By: #### C BC, BMP, 1751-7, 90288-2, 2777-1, 2731-8, 30342-5 #### [facility] ([id number]) [address], [address] [place] [address] URINALYSISon 12-17-2023 Bilirubin Ql (U) Negative Normal NEG [facility] Comment on above: Performed By: #### SAULO Villa #### [facility] ([id number]) [address], [address] [place] [address] BLOOD/HGB Negative Normal NEG [facility] Comment on above: Performed By: #### SAULO Villa #### [facility] ([id number]) [address], [address] [place] [address] Color (U) YELLOW Normal YELLOW [facility] Comment on above: Performed By: #### U Yadira, SAULO #### [facility] ([id number]) [address], [address] [place] [address] Glucose Ql (U) >1000 Abnormal NEG [facility] Comment on above: Performed By: #### Guille May, SAULO #### [facility] ([id number]) [address], [address] [place] [address] Ketones Ql (U) Negative Normal NEG [facility] Comment on above: Performed By: #### Guille May, SAULO #### [facility] ([id number]) [address], [address] [place] [address] Leukocyte esterase Test stri p Ql (U) Large Abnormal NEG [facility] Comment on above: Result Comment: HIGH CONCENTRATIONS OF GLUCOSE MAY DECREASE THE REACTIVITY OF THE DIPSTICK LEUKOCYTE TEST PAD. Performed By: #### Guille May, SAULO #### [facility] ([id number]) [address], [address] [place] [address] Nitrite Ql (U) Negative Normal NEG [facility] Comment on above: Performed By: #### Guille May, SAULO #### [facility] ([id number]) [address], [address] [place] [address] pH (U) 5.5 [pH] Normal 5.0-8.5 [facility] Comment on above: Performed By: #### Guille May, SAULO #### [facility] [facility] ([id number]) [address], [address] [place] [address] Protein Ql (U) Negative Normal NEG [facility] Comment on above: Performed By: #### Guille aMy, SAULO #### [facility] ([id number]) [address], [address] [place] [address] R.B.CELLS 2 /hpf Normal 0-5 [facility] Comment on above: Performed By: #### Guille May CHIDIJOCE #### [facility] ([id number]) [address], [address] [place] [address] RENAL EPITHELIUM <1 High 0 [facility] Comment on above: Performed By: #### Guille May CHIDIJOCE #### [facility] ([id number]) [address], [address] [place] [address] Specific gravity (U) [Rel density] 1.019 Normal 1.003-1.03 5 [facility] Comment on above: Performed By: #### Guille May CHIDIJOCE #### [facility] ([id number]) [address], [address] [place] [address] SQUAMOUS EPITHELIUM 8 /hpf High 0-5 [facility] Comment on above: Performed By: #### Guille May CHIDIJOCE #### [facility] ([id number]) [address], [address] [place] [address] TRANSITIONAL EPITH 1 /hpf High 0 [facility] [place] Comment on above: Performed By: #### Guille May CHIDIJOCE #### [facility] ([id number]) [address], [address] [place] [address] TURBIDITY HAZY Abnormal CLEAR [facility] Comment on above: Performed By: #### Guille May CHIDIJOCE #### [facility] ([id number]) [address], [address] [place] [address] Urinalysis dipstick W Reflex Microscopic panel (U) URINE RECEIVED WITHOUT PRESERVATIVE-DELAY S IN TRANSPORT MAY AFFECT RESULTS.INTERPRET WITH CAUTION AND CLINICAL CORRELATION IS RECOMMENDED. Normal [facility] Comment on above: Performed By: #### Guille May CHIDIJOCE #### [facility] ([id number]) [address], [address] [place] [address] Urobilinogen (U) [Mass/Vol] mg/dL Normal <1.1 [facility] Comment on above: Performed By: #### SAULO Villa #### [facility] ([id number]) [address] [place] [address] W.B.CELLS 137 /hpf High 0-5 [facility] Comment on above: Performed By: #### SAULO Villa #### [facility] ([id number]) [address] [place] [address] WBC CLUMPS FEW Abnormal NONE [facility] Comment on above: Performed By: #### Guille May, SAULO #### [facility] ([id number]) [address] [facility], [address] [place] [address] Vitamin D+Metabolites [Mass/ Vol]on 12-17-2023 VITAMIN D 25 HYD TOT 60.0 ng/mL Normal 30-100 [facility] Comment on above: Result Comment: Vitamin D status 25 [place] Vitamin D Deficiency <20 ng/mL Insufficiency 20-29 ng/mL Sufficiency 30-100 ng/mL Toxicity >100 ng/mL NOTE: A pediatric reference range has not been established by the clinical study manager of this kit. The [employer] recommends a Vitamin D level of = or >20ng/mL in infants and children. Performed By: #### C BC, [facility], 1751-7, 08978-4, 2777-1, 2731-8, 48881-4 #### [facility] ([id number]) [address] [place] [address] 36on 11-29-2023 36 Spoke with patient and she is agreeable to muga scan at [facility]. Order faxed. [facility] 36on 11-14-2023 36 Regarding echo performed on 08/30/2023: MD Katalina Fields MA Echo showed improved ejection fraction however it was difficult to assess. I want her to get a MUGA scan [RNA scan for LVEF]. I think this has to be done at [facility]. [facility] does do muga scans. Is it ok that she have it here? Please advise. Thanks. Normal [facility] HGB A1C (GLYCO-HGB)on 2022 Glucose [Mass/Vol] 140 mg/dL Normal [facility] Comment on above: Performed By: #### 2 4331-1 #### [facility] ([id number]) [address], [address] [place] [address] HbA1c (Bld) [Mass fraction] 6.5 % High 4.4-5.6 [facility] Comment on above: Result Comment: NOTE ADA Guidelines Result HgbA1c Normal : less than 5.7 % Prediabetes : 5.7 % to 6.4 % Diabetes : > 6.4 % Use with caution in patients with abnormal hemoglobin variants as the half-life of red blood cells and in vivo glycation rates are affected. Performed By: #### 2 4331-1 #### [facility] ([id number]) [address], [address] [place] [address] Lipid 1996 panelon Cholesterol [Mass/Vol] 152 mg/dL Normal 150-200 [facility] Comment on above: Performed By: #### 2 4331-1 #### [facility] ([id number]) [address], [address] [place] [address] Cholesterol in HDL [Mass/Vol] 46 mg/dL Normal >39 [facility] Comment on above: Result Comment: HDL <40 mg/dL - High Risk HDL > or = 40mg/dL- Desirable HDL >60 mg/dL - Negative Risk Performed By: #### 2 4331-1 #### [facility] ([id number]) [address], [facility] [address] [place] [address] Cholesterol in LDL [Mass/Vol] 88 mg/dL Normal <130 [facility] Comment on above: Result Comment: LDL <100 mg/dL - Desirable LDL >160 mg/dL - High Risk Performed By: #### 2 4331-1 #### [facility] ([id number]) [address], [address] [place] [address] Cholesterol in VLDL [Mass/Vol] 18 mg/dL Normal 0-30 [facility] Comment on above: Performed By: #### 2 4331-1 #### [facility] ([id number]) [address], [address] [place] [address] CHOLESTEROL:HDL 3.3 Normal 1.0-5.0 [facility] Comment on above: Performed By: #### 2 4331-1 #### [facility] ([id number]) [address], [facility] [address] [place] [address] Triglyceride [Mass/Vol] 88 mg/dL Normal 27-150 [facility] Comment on above: Performed By: #### 2 4331-1 #### [facility] ([id number]) [address], [facility] [address] [place] [address] Office Visiton 08-02-2023 Follow-up visit [id number] Daysi Hood 1935 F Date Provider Department Center 08/02/2023 [facility] Family History Problem Relation Age of Onset Coronary artery disease Other Family Status - Relation Status Age at Other Level of Service:26448 [place] OFFICE/OUTPATIENT ESTABLISHED MOD MDM 30-39 MIN Reason for Visit and Comments: Follow-up [310108] Normal [facility] NM STRESS/REST MULTIon 01-22 NM STRESS/REST MULTI Patient: DAYSI HOOD Exam Date: 01/22/2023 : 1935 Gender:F Ordering : DR DEVIN KELSEY M.D. Admission #: [id number] Family : Order #: [id number] CLICK HERE TO VIEW EXAM RADIOLOGY REPORT PROCEDURE: RADIONUCLIDE IMAGING STRESS/REST MULTI COMPARISON: None. 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 WHITFIELD . For more details please see separate cardiac stress test report. FINDINGS: QUALITY OF STUDY: Excellent. PERFUSION DEFECT: LOCATION: Apical anterior. [place]. SIZE: Small (1-2 segments). SEVERITY: Severe. TYPE: Persistent. WALL MOTION: Akinesis: Dyskinesis: [place]. LV SIZE: Normal. 73 mL. TID / TCD: 0.9 LVEF: Normal. Calculated EF 56%. SUMMARY: Myocardial perfusion imaging study has ABNORMAL findings. CONCLUSION: 1. 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 2. Left ventricle ejection fraction is at lower limits of normal. Dictated by: Ernie Mobley M.D. on 01/22/2023 at 14:43 Approved by: Ernie Mobley M.D. on 01/22/2023 at 14:48 Normal [facility] ECHOCARDIO M/2D COMPLETEon 0 01-04-2023 ECHOCARDIO M/2D COMPLETE Patient: DAYSI HOOD Exam Date: 01/04/2023 : 1935 Gender:F Ordering : DR DEVIN KELSEY M.D. Admission #: [id number] Family : Order #: [id number] CLICK HERE TO VIEW EXAM ECHOCARDIOGRAM REPORT PROCEDURE: CARDIO PULMONARY ECHOCARDIO M/2D COMP INDICATIONS: Chronic systolic congestive heart failure, CABG, pacemaker, diabetes COMPARISON: None. DESCRIPTION: COMPLETE ECHOCARDIOGRAM Real-time transthoracic echocardiography with 2D, M-mode, spectral and color flow Doppler performed. QUALITY: Technical quality was good. LEFT VENTRICLE: Normal chamber size. Normal left ventricular wall thickness. Systolic function is severely reduced. Abnormal septal motion likely related to pacing. LV EF: Severely reduced left ventricular ejection fraction, (25%). DIASTOLIC: Grade I diastolic dysfunction. ATRIAL SEPTUM: LEFT ATRIUM: Mildly dilated. RIGHT ATRIUM: Mildly dilated. RIGHT VENTRICLE: Normal chamber size. Pacer wire present. Systolic function is normal. TRICUSPID VALVE: Normal mobility and thickness. No stenosis with mild regurgitation. No evidence of pulmonary hypertension. RVSP 22 mmHg MITRAL VALVE: Normal mobility and thickness. No evidence of mitral valve stenosis. Mild mitral annular calcification. Mild mitral regurgitation. AORTIC VALVE: Normal trileaflet appearance. Thickened aortic valve. Mildly diminished mobility. No evidence of aortic valve stenosis. Mild aortic regurgitation. AORTIC ROOT: Normal diameter and appearance. PULMONIC VALVE: Normal thickness and mobility. No stenosis. PERICARDIUM: No evidence of pericardial effusion. IVC: Collapses with inspirations. IVC is normal in size. PLEURA: CONCLUSION: 1. Left ventricular systolic function is severely reduced. LVEF is 25%. 2. The right ventricle is normal in size with normal systolic function. 3. Mild mitral and aortic regurgitation. 4. Normal right-sided pressures. Adult Echocardiography Procedure Report Left Ventricle LVEDD (3.7 - 5.6 cm): 4.94 cm LVESD (2.2 - 4.0 cm): 3.79 cm LVIVS thickness (0.6 - 1.2 cm): 0.72 cm LVPW thickness (0.5 - 1.0 cm): 0.66 cm e': 0.04 m/s E - e': 12.37 LVOT Max Gradient: 0.85 mm[Hg] Peak Velocity (LVOT): 0.46 m/s LVOT Diameter 2.23 cm Left Ventricular Ejection Fraction: 25 % Left Atrium LA Volume Index (2D A2C): 40.85 ml, 40.85 ml Left Atrium Systolic Dimension: 3.63 cm Mitral Valve MV E to A Ratio: 0.65 Mitral Valve A-Wave Peak Velocity: 0.76 m/s Mitral Valve E-Wave Peak Velocity: 0.49 m/s Right Ventricle Aorta AO Root Diam: 3.19 cm Aortic Valve AoV Area (Peak Erasmo): 1.89 cm2, 1.89 cm2 Peak Velocity(Antegrade Flow): 0.95 m/s Peak Gradient(Antegrade Flow): 3.62 mm[Hg] Tricuspid Valve Peak Velocity (Regurgitant Flow): 2.15 m/s, 2.18 m/s Peak Velocity: 1.07 m/s Pulmonic Valve Peak Velocity: 0.79 m/s, 0.74 m/s Peak Gradient: 2.51 mm[Hg], 2.20 mm[Hg] Right Atrium Dictated by: Devin Kelsey M.D. on 01/04/2023 at 15:36 Approved by: Devin Kelsey M.D. on 01/04/2023 at 16:02 Normal [facility] XR Bone Density (DEXA)on XR Bone Density (DEXA) [facility] lt[facility]-Matched Total(g/cm2)(%)T-S core(%)Z-Score Femurs.62070-9.611 9+1.0 Impression: The mean BMD and corresponding T-score indicated above indicate Low Bone Mass (Osteopenia) and places the patient at a mild to moderate increased risk for fracture. There may be a future risk of developing osteoporosis. Recommend follow-up exam in 1 year, sooner as clinically necessary. [facility] ltAge-Matched Total(g/cm2)(%)T-S core(%)Z-Score L1-L41.59323-8.413 7+2.5 Impression: The mean BMD and corresponding T-score indicated above indicate Normal Bone Mass and places the patient no significant risk for fracture. This information can serve as a baseline with which to compare future studies. Recommend follow-up exam in 2 years, sooner as clinically necessary. Comment: The T-score is the primary focus of the interpretation of a patient???s bone mineral density measurement. The T-score is the number of standard deviations an individual is above or below the mean value for a young female having normal bone mass. The WHO defines osteoporosis based on the T-score value??? +1.0 to ???0.9 : Normal bone mass -1.0 to -2.5 : Osteopenia and thus may be at future risk of fracture -2.6 to ???5 : Osteoporosis and ???at significantly increased risk of fracture??? A Z-Score of -2.0 or lower is defined as ???below the expected range for age??? and a Z-Score above -2.0 is ???within the expected range for age.??? Osteoporosis cannot be diagnosed in men under the age of 50 on the basis of BMD alone. Per 2019 ISCD guidelines, Z-Scores (not T-Scores) are preferred when reporting data in premenopausal females and males less than 50 years of age. Report reported and signed by Jack Lion on 02/27/2022 1033 Normal [facility] Microalbumin (with Creat)on 02-15-2022 mALB <1.2 Low [facility] Comment on above: Result Comment: Unab le to calculate mALB/Crea ratio, mALB is <1.2 mg/dL mALB reference range not established. Performed By: #### m ALBC #### [facility] [address], [place] [id number] UCREA 29 mg/dL Normal 28-217 [facility] Comment on above: Performed By: #### m ALBC #### [facility] [address], [place] [id number] US Renal/Bladderon 2 US Renal/Bladder FINDINGS: Right Kidney7.4 x 4.5 x 4.0 cm Left [place]11.8 x 5.1 x 5.7 cm Full bladder volume: 55 cc Post-void bladder volume: 7 cc Decreased right cortical volume, no mass or evidence of obstruction. Punctate echogenic foci cortical medullary junctions likely reflects non-distracting punctate caliceal stones. Normal left renal cortical volume, exophytic left upper pole 3 x 4 cm simple cyst. Bladder not fully distended at time of imaging. No bladder stone or focal wall thickening. Both ureteral jets visualized. IMPRESSION: 1. Slight reduction right renal cortical volume, no evidence of obstruction or collecting system dilatation. Unilateral involvement may reflect underlying renal arterial stenosis. 2. Left upper pole benign simple cyst. Report reported and signed by Jack Lion on 12/04/2021 0937 Normal [facility] Extension Service Specialist In Charge Coding Summaryon 03-15-2021 Coding Summary HTMLBase 64 FxhywwmeZSn0jCq+PG hlYWQ+WA6GPHVlW27j xFTfpR9MU7xAAZ2ZFD RJQBMEVQ2HXU9yfVI7 BBivA8DrcnTq JxnmfUAeOP27ORj5RP Q6xHiuYUlrhZ4jbKJq X0y5SrUmPI57kJ50MD bcBIBnElG1XnSezsnk bWFy C9nkOzFgeLPrNqp+PH RhYmxlIHdpZHRoPScx WFDyVsLxxGfxKK6aGt 9yZGVyLWNvbGxhcHNl OiBj p4hqKQUdSZolFD1jxG cvM0JrgHD1HWPed2e7 Dx71iDR+GGSuUMA0wO jwEGvvp398FsLzw8sf IDM3 oGNsHJvkXDG0Q94qg1 Q8TDPyIFJpTTV8dMK9 jZ8tsIroemkmP6LbuJ FaJiT8BCB9eSZoaT3o bGln dxtwpK8eIrk+Q09ESU 8OJJBCMR9IAey8K8Gj PjwvdHI+PS69LRIuVX 39zVGeeYDeu3svmOe0 JzEw RQPkTXU6nKokVJfkv4 NfBPDiE08rvHOgi2M7 IGNvbGxhcHNlOyBlbX M5zK3gXXzdfjigw6bt dzsn Vdxzr5ppyz24gO59H3 0jTZaqMVSoNVZ8SDHr SSQlmAabej9isQ9qQu 8+WAkhb0fch5worZz5 IjIw BVMuuvOstYdqCFL8m7 OlUs19F1JsaCosw2Cz Tws9iu94uQXjc3S9rF D2NFgqYHTzrE0rNYmd ZnQ6 ETRtQnGkoG01wLPtSW rmPi8alFvriXhjQQ6t WWDldogfCDQgnM4cBN LdfLAuoVjgQI6yASFn bjtm n112DwRbSHO3ZOPwxO DwJ4KqtZ6sCnYeTRSt QQMfG3HcgZExZRnaY3 26RDslNpM2TLCivdSo Y2Fs DXBnnZxvTvW6h6Q7Ab 8Ie3BfplfqQLH1BEtl YYV3OlE2UuYqLnJ8T9 TpXwz0KUXqoKklKT2a J3Bh GJKbjqetcfjamZM8NP XjIARglL78xGGgXBhk Dr1qt0C9n195EBYhAK PjqD30Pa8ghSzcGSUe dCBU tB4tkykoe7erjvgdOi TbXYFxTHi1XVi1URDw tNtoNdBsJDV5WnP0XW U6zCZwgN5wqKxewbhq dG9w Oyc+O96fbQ4pXFF6VQ C7drlmOETqfxCeXS30 UQ91C4JgWhxklTTbwT U+RCRlvlUezCjaED6t YmFj e4gxc4MoRZaaK5EhYR GhPQejRbu3BNBtOSU6 vGZ7jX7iVGImBClcj3 K1eJZ8U6XiupKcdo4k b2xs HACrSAdyV68txZTjy5 A9GSLikDU2XSIzpJyt EzAakA07Vod+PGNvbG rad8EfMgrhx6icq8ya dGg9 IjMwJSIgdmFsaWduPS X5u4KwZm45S35uDUrx ZHRoPSIxNSUiIHZhbG jblt3ceY2pYw5+PGNv bCB3 qGM0wL5dIWGbUgV3WO xwA652KuIteFSaYwvw k8sex5usbOz5GiGmHX DnukBdjEnmJGD8k5Pi Lz48 X94rHNsoEYLkKXQeMW TiMDLwiNwqnd6syD6h Ii8+YR0qg4khad25eN 48dHI+HFZbHKU4tDig PSdw QUPbfC5dHKmiItX0NQ PyGbKjnK46iHRbZLym Mi4jkVudgNlhFY6fTZ Qohnknx657CnFoj4ax IDEw pBFxYKypVCJ1F37id4 X2QDVsFAFtNQS3cIA0 rQ4ljCqfqieshCCelJ sgdmVydGljYWwtYWxp Z246 IHRvcDsnPlBhdGllbn YsPdUlXJe1C4GqRyv1 KYWuxUhmOE0frVQeNR esDj9bfNcezKedQA8q NTBp oiafh856AzPwh2irMU MyuFHgPEodWXS2H65j m2V0BSTjWPZwBIE2lM W2dD9jcWfyngsikMWp dDsg dmVydGljYWwtYWxpZ2 46IHRvcDsnPkJpcnRo AGNwrBJ7RN79EA38wH Wwd3N6uSX3Y7JoBRGs bmct zniopDL6FFOeDZRozS 53Ex6myUpySi2eGKVk HWP1ILJijXWuU1AozQ 9qMxJmRQHqNRUjG3Az eHQt LOsoU462DDceIzX4IC ZewgYpV6DkSWDeqTlj ScU4q7B2Rk7PH1L2WG 86VV50eCOqx0N9qOG9 J3Bh QQTdvlnfbftckUC9YT MnFUQsmA25Yc6hdRcv Xy0tUZHsBUU4VFPjuE NbR0BxlM7fKbPhYONs MDAw Z9PfnHTjEKohU171PQ roGlQ8FSWmiqZlL1Re MSRdkAhtWlQ6k5W7Wj 3BNOm9YS62UM66zDAz c3R5 jIE0K9EqQFKrlmdfhi quxNR2GJThPUElrG26 Kh1dzWxrAr7cMKJcLY G4TUNpxYEyZ1JqkK4y OiAj BVHqICXtB6XwoVKbVI ckX164XThpRcQ6QXYn akZhK3CdKUYjqLylZd J5g8I5Sw4DBZCqBQ40 IFR5 aSM0QF01JM98N3VbTw wvdGFibGU+PHRhYmxl IHdpZHRoPScxMDAlJy WwqArpPD2tDl5iZWEm LWNv bCkfvRAdCyEuh8clRK AfGWoeKB5qwThdK4Ev dYT9EIOmq4z7Vi69P2 2bJ3RiyEN+PGNvbCB3 aWR0 cP2oMsVcXrO4TZanP7 67JuArmKLfYdyic1pe t5wjfYj3RzE3RZXtlk RomUhgEPM4s0ZcJq53 Y29s IHdpZHRoPSIxNSUiIH EzpPigpo8nrN8iNw4+ KPNhrCD8ePV4oO0eAd PeLeD1ZDisW088FtGa cCIv Gxyvs0mys4qenSl8Ia IwJSIgdmFsaWduPSJ0 p5JvDe21K3UlwWytj4 DrNnv5bm43bJLzi9Z5 bGU9 E6FkVLTfodspjFGjlN yjKT0nNVHgxrbhQKUt jW9xEHTuW4r3ZjUpBd X0SXkdL4KdntR4DDAj cHQg TOisFDO7Z46tb5X6VY ErJVRuKUZ8uQR5zE4o bGlnbjogbGVmdDsgdm BpkQfoHJujWSkyA430 IHRv eGjyACKofJ2oHIZymQ IobCwuZF2mEYYznzrp RiTEXA4MMXpeZzVICT WZRF39CY07gAWmq1F4 bGU9 V5HnPQEnrduarzxnvZ Y5GHYmZGKcpH68mZTu FDkkKa3bw4O4i421FF UfSVLsyJ15Gv0bwWhz MTBw qQWMeL9dooeec6ttxt jxTzMfWEWzJGj9DCl0 AALpdSnvChRuWAV7On S1DES4bVJuaZ0dzMvh bjog wV3nCms+MDMvMjMvMT kzNzwvdGQ+PHRkIHN0 qFjgPXptZNWggC6cNK PrU3m9FzRnVpP9UTwo O3Bh CWIlufkrTn19vS3rFv CbKrO8IQhrI3LdsgG8 JNJhvOEtRAveEGR3J5 8qk8O5KJBeEWMtEYG6 dGV4 bZ6esHjhbgwczHXykL sgdmVydGljYWwtYWxp K767LOTjcHkdOor5KL pqRMAaKO06DW87xYNl c3R5 pKM7G0GmBPUnhospse rajKG0OUEqYLXxgD40 yJVzKNgiWn6fx0F9x9 00DEXmCPOjoQ08Dg5z dDog EUEymGAMwZ0zfbkzs1 xvcjogIzAwMDAwMDt0 KDy5RQEnrFwoPxYkKV F0TpB8BKX8eGXmoY7y bGln thbxbC9mDma+RkVNQU jUUP93ZY21dBEax4W9 tVQ2V7TgYCLauxkqal kppDK5HMKvLHDptD61 cGFk KBfeEu1ct8M2z407OO CfDESpmL11Ye8ivZhn GWZmmNRPhB6ysdahg6 xvcjogIzAwMDAwMDt0 ZXh0 AWAxwWowAaZoRHK8Er B8FWS4aOJyuG6viTnm qfdjfN7dNap+UmVjdX NgyD3gCQ22cLQpjCam bnQ8 T9RiGmppzCD+PC90YW ApGQ87dDYhwOCfj5jx vMc5CiDvTLXdPTD7bR lrYIyyj1GgXCVfZ06g bGFw g2C3NJUnxHbxlHZuHu GydHD9pB1cLOdbmzcw u3xqkmqcYiwqj5zcdy 56qN94V64nCOpgFWHy PSIz HWKpMNRueBfhgg9hkR 9wIi8+LKIpfYJ0xWC9 sR6oOdXgGbP9VAoxC1 62CdXmeODwVzlqh6jl d2lk pKx2FhVvJTFoneWqzG tkQJX7q6UlXy89M81z IHdpZHRoPSIyMCUiIH GezFkbpl3vlM8dBb6+ PC9j i0eqzy68aX51cWK+PH LuJGB6hAgtOAzmJIAn uT3pDQrbVuY7DRNkEm VrxL45bXLnHKfqPr6r aWdo vEowGK1tQBVzvglcx9 05MnAbv0alHDXqsOMr UEvrQMF0L55ov9N3JS FkFDCkLEW1fEX0hE8m bGln bjogbGVmdDsgdmVydG epHJsqWMehS440XDRj zEzeVqAeiVEdZ7eqyl EIZT7jTmyrvFM+PHRk IHN0 gMqyZMzhLTPlvL5cQU XtE0o3BhJpYpX1THun M6CancY4ENYtrUJlGC HpoAFMvF7ucscsn4cj cjog DfOjTITgDHo3FKg1ZG OdrYldNbKmBAX6FtF3 FHK8oBKkwS6buLllbz swpZ9vLwl+RklOOjwv dGQ+ SYGfUPC3fAlwMJdxBY PasU7mFMJkO9v6RqEt OmF6KUpoY8AbnpB4HU GiwFWqYTTywVKNiX2u cztj i5yshehkEzQwVJDdNA u4LIx7QKAzcXoxIhHj YHM8TqK5REJ5kGIacO 4fjTwvwxxtuQ7yPva+ TVJO OjwvdGQ+LVLvCNK7iL avZLiuRZDpvH5qWXEo L3a5UfIlPiW2LUvgP0 FtplP7MHZpcQDnBJOu dCBU hO3vdntdl3qfbmblLc TtREAyNDs1TKw3ZXPl oVdfAyGlMPD3KhA7GV S2vBQooL1ymGnfltqi dG9w Oyc+DVD0WXD5GS29BC 16M9MeJdntoXQodZK+ PHRhYmxlIHdpZHRoPS seZRAyVwAstMexIZ8m Ym9y ZGV (more content not included)... [facility] Provider Orderson 03-14-2021 Provider Orders [id number]#1.00[facility] Rad - Other Radiology Report on 03-13-2021 Rad - Other Radiology Report [id number] [id number][facility] on 02-20-2021 Rad - Other Radiology Report [id number][facility]-17-[facility]21 Outside Records [id number]#1.00[facility] Vital Signs Date Time Vital Sign Value Performing Clinician Faci lity 07-28-2024 15:36-0400 Body height 162.6 cm Elliott Hendrix MD Work Phone: [facility] 07-28-2024 15:36-0400 Body mass index (BMI) [Ratio] 24.98 kg/m2 Elliott Hendrix MD Work Phone: [facility] 07-28-2024 15:36-0400 Body weight 66 kg Elliott Hendrix MD Work Phone: [facility] 07-16-2024 14:0400 Body height 162.6 cm Elliott Hendrix MD Work Phone: [facility] 07-16-2024 14:-0400 Body mass index (BMI) [Ratio] 24.98 kg/m2 Elliott Hendrix MD Work Phone: [facility] 07-16-2024 14:0400 Body weight 66 kg Elliott Hendrix MD Work Phone: [facility] 07-16-2024 14:22-0400 Diastolic blood pressure 70 mm[Hg] Elliott Hendrix MD Work Phone: [facility] 07-16-2024 14:-0400 Heart rate 87 /min Elliott Hendrix MD Work Phone: [facility] 07-16-2024 14:-0400 SaO2% (BldA) [Mass fraction] 98 % Elliott Hendrix MD Work Phone: [facility] 07-16-2024 14:22-0400 Systolic blood pressure 120 mm[Hg] Elliott Hendrix MD Work Phone: [facility] 06-24-2024 14:0400 Body height 162.6 cm Wsapnil Verhoff PA-C Work Phone: [facility] 06-24-2024 14:01-0400 Body mass index (BMI) [Ratio] 24.55 kg/m2 Swapnil Verhoff PA-C Work Phone: [facility] 06-24-2024 14:01-0400 Body weight 64.86 kg Swapnil Verhoff PA-C Work Phone: [facility] 06-24-2024 14:01-0400 Diastolic blood pressure 56 mm[Hg] Swapnil Verhoff PA-C Work Phone: [facility] 06-24-2024 14:01-0400 Heart rate 66 /min Swapnil Verhoff PA-C Work Phone: [facility] 06-24-2024 14:010400 SaO2% (BldA) [Mass fraction] 96 % Swapnil Sammkath GONZALEZ Work Phone: [facility] 06-24-2024 14:010400 Systolic blood pressure 101 mm[Hg] Swapnil Ramírez PA-C Work Phone: [facility] Encounters Encounter Date Encounter Type Care Provider Facility Start: 07-28-2024 End: 07-28-2024 Office outpatient visit 25 minutes Elliott Hendrix MD Work Phone: [facility] Comment on above: Chronic pain syndrom e (Primary Dx); Lumbosacral spondylosis without myelopathy; Postural kyphosis of cervicothoracic region; Controlled substance agreement signed; Medication monitoring encounter; Polypharmacy Start: 07-28-2024 End: 07-28-2024 ambulatory ELLIOTT HENDRIX Not Available Start: 07-28-2024 End: 07-28-2024 Bamboo flowsheet Elliott Hendrix MD Work Phone: [facility] Start: 07-28-2024 End: 07-28-2024 Bamboo flowsheet Elliott Hendrix MD Work Phone: [facility] Start: 07-22-2024 End: 07-22-2024 ambulatory SHAIKH JORY Not Available Start: 07-22-2024 End: 07-22-2024 Patient encounter procedure [facility] Comment on above: Asymmetrical sensori neural hearing loss (Primary Dx) Start: 07-16-2024 End: 07-16-2024 Patient encounter procedure Elliott Hendrix MD Work Phone: [facility] Comment on above: Encounter for [employer] annual wellness exam (Primary Dx); Advance directive discussed with patient; Encounter for screening for other disorder; Screening for alcohol problem; Ventricular tachycardia (CMS/HCC); Primary hypertension (CMS/HCC); Ischemic cardiomyopathy (CMS/HCC); 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); Chronic systolic heart failure (CMS/HCC); Atherosclerosis of [place] coronary artery of [place] heart without angina pectoris ([facility]/HCC); Stage 3b chronic kidney disease (HCC) ([facility]/HCC); Type 2 diabetes mellitus with stage 3b chronic kidney disease, without long-term current use of insulin (HCC) ([facility]/HCC); Mixed hyperlipidemia ([facility]/HCC) Start: 07-16-2024 End: 07-16-2024 ambulatory SHAMAERIK Alba HENDRIX Not Available Start: 07-14-2024 End: 07-14-2024 ambulatory ANNA Ferguson LANJENNIFERMILAGROS [facility] Start: 07-13-2024 End: 07-13-2024 Bamboo flowsheet Mariela Yadira Chitra CCC-A Work Phone: [facility] Start: 07-13-2024 End: 07-13-2024 Bamboo flowsheet Mariela Yadira Buenrostor CCC-A Work Phone: [facility] Start: 07-13-2024 End: 07-14-2024 Telephone encounter Mariela Buenrostro CCC-A Work Phone: [facility] Start: 07-13-2024 End: 07-13-2024 ambulatory MARIELA BUENROSTRO Not Available Start: 07-13-2024 End: 07-13-2024 Clinical Support Mariela May Chitra CCC-A Work Phone: [facility] Comment on above: Asymmetrical sensori neural hearing loss (Primary Dx) Start: 06-24-2024 End: 06-24-2024 Office outpatient new 30 minutes Swapnil Ramírez PA-C Work Phone: [facility] Comment on above: Thoracic spine pain (Primary Dx); Lumbar spine pain Start: 06-24-2024 End: 06-24-2024 ambulatory SWAPNIL RAMÍREZ [facility] Start: 06-24-2024 End: 06-24-2024 ambulatory JOSE SNOWDENTRICK [facility] Start: 06-16-2024 End: 06-16-2024 ambulatory JOSE MADDOX Not Available Start: 06-08-2024 End: 06-08-2024 [facility] Start: 03-26-2024 End: 03-26-2024 ambulatory SHAIKH BRADLEYLADyan [facility] Start: 03-26-2024 End: 03-26-2024 ambulatory SHAIKH JORY Not Available Start: 03-13-2024 End: 03-13-2024 ambulatory [facility] Start: 02-18-2024 End: 02-18-[address] [facility] Start: 01-14-2024 End: 01-14-2024 ambulatory ANNA MELENDEZ [facility] Start: 12-25-2023 End: 12-25-2023 ambulatory SHAIKH JORY Not Available Start: 12-17-2023 End: 12-17-2023 ambulatory TARUN SINGHANNETTE [facility] Start: 09-26-2023 End: 09-26-2023 ambulatory SHAIKH JORY [facility] Start: 09-25-2023 End: 09-25-2023 ambulatory SHAIKH JORY Not Available Start: 08-19-2023 End: 08-19-[address] [facility] Start: 08-02-2023 End: 08-02-2023 ambulatory [facility] Start: 02-18-2023 End: 07-16-2024 [facility] of [facility]osiderin, [facility] Start: 02-12-2023 End: 02-27-[address] CHUYITA PETERS Facility:[facility] Start: 01-22-2023 End: 01-23-[address] CHUYITA PETERS Facility:[facility] Start: 01-04-2023 End: 01-05-[address] CHUYITA PETERS Facility:[facility] Start: 01-13-2019 Patient encounter procedure Estrellita Dickerson Facility:[id number] Start: 08-27-2018 End: 08-28-2018 Patient encounter procedure DEFAULT PHYSICIAN Facility:[facility] Start: 06-16-2018 End: 06-17-2018 Patient encounter procedure DEFAULT PHYSICIAN Facility:[facility] Start: 05-26-2018 End: 05-27-2018 Patient encounter procedure DEFAULT PHYSICIAN Facility:[facility] Procedures Date Procedure Procedure Detail Performing Clinician Start: 07-28-2024 Drug test prsmv read direct optical obs pr date Elliott Hendrix MD Work Phone: Start: 07-13-2024 AUDITORY FUNCTION TESTS [facility]: Plan of Treatment Date Care Activity Detail Author Start: 01-07-2034 DTaP,Tdap and Td Vaccines (2 - Td or Tdap) DTaP,Tdap and Td Vaccines (2 - Td or Tdap) [facility] Start: 06-24-2025 Adult BMI Screening Adult BMI Screen ing [facility] Start: 06-24-2025 Urine screening for protein Diabetes: Urine Protein Screening [facility] Start: 04-16-2025 Glaucoma screening Diabetes: R etinopathy Screening [facility] Start: 12-15-2024 End: 12-15-2024 Patient encounter procedure 12/15/2024 9:30 AM EDT Office Visit [facility] [address] [place] [id number] Jose Maddox NP [address] [place] [address] [facility] Start: 10-26-2024 End: 10-26-2024 Patient encounter procedure 10/26/2024 2:00 PM EST Office Visit [facility] [address] [place] [address] Elliott Hendrix MD [address] [place] [address] (Fax) [facility] Start: 09-25-2024 Hemoglobin A1c measurement Diabetes: Hemoglobin A1C [facility] Start: 09-22-2024 Influenza vaccination Influenza Vacc ine (#1) [facility] Comment on above: Postponed from 05/31 (Patient Refused) Start: 08-19-2024 End: 08-19-2024 Patient encounter procedure [facility] Start: 07-28-2024 End: 07-28-2024 Patient encounter procedure [facility] Comment on above: Arrived Start: 07-16-2024 End: 07-16-2024 Patient encounter procedure 07/16/2024 2:00 PM EDT Office Visit [facility] [address] [facility] [address] [place] [address] Elliott Hendrix MD [address] [place] [address] (Fax) [facility] Start: 07-15-2024 End: 07-15-2024 Patient encounter procedure 07/15/2024 11:30 AM EDT Office Visit [facility] [address] [facility] [address] [place] [address] Ada Bob MD [address] [facility] [address] [place] [address] [facility] Start: 05-31-2024 COVID-19 Vaccine ( season) COVID-19 Vaccine ( season) [facility] Start: 05-31-2024 Influenza vaccination P [facility] Start: 2001 Fall Risk Screening Fall Risk Screen ing [facility] Start: 1948 Depression Screening Depression Scre ening [facility] Start: 1948 Tobacco Screening Tobacco Screening [facility] Start: 1936 Medicare Annual Wellness Visit Medicare Annual Wellness Visit [facility] Immunizations Immunization Date Immunization Notes Care Provider Fa cility 01-08-2024 tetanus toxoid, redu debbie diphtheria toxoid, and acellular pertussis vaccine, adsorbed [facility]: [facility] 07-11-2023 Influenza, Seasonal, Quadrivalent, Adjuvanted Mariela [facility] Work Phone: [facility] 07-11-2023 influenza virus vacc ine, unspecified formulation Swapnil Ramírez PA-C Work Phone: [facility] 08-15-2022 Moderna SARS-CoV-2 Booster Vaccination Mariela Chitra CCC-A Work Phone: [facility] 07-19-2022 Influenza, High-dose Seasonal, Quadrivalent, Preservative Free Mariela Chitra CCC-A Work Phone: [facility] 04-11-2022 SARS-CoV-2, Unspecified Louise ra Chitra CCC-A Work Phone: [facility] 08-04-2021 Influenza, High-dose Seasonal, Quadrivalent, Preservative Free Mariela Chitra CCC-A Work Phone: [facility] 08-04-2021 Influenza, Seasonal, Quadrivalent, Adjuvanted Mariela Chitra CCC-A Work Phone: [facility] 12-23-2020 pneumococcal conjuga te vaccine, 13 valent Mariela Chitra [facility] Work Phone: [facility] 06-28-2020 influenza, seasonal, injectable, preservative free Mariela Chitra CCC-A Work Phone: [facility] 06-27-2020 influenza, injectabl e, quadrivalent, preservative free Mariela Chitra CCC-A Work Phone: [facility] 06-27-2020 Influenza, Seasonal, Quadrivalent, Adjuvanted Mariela Chitra CCC-A Work Phone: [facility] 06-23-2019 influenza, injectabl e, quadrivalent, preservative free Mariela Chitra CCC-A Work Phone: [facility] 06-23-2019 Seasonal trivalent influenza vaccine, adjuvanted, preservative free Mariela Chitra CCC-A Work Phone: [facility] 03-23-2019 zoster vaccine recombinant Mariela Chitra CCC-A Work Phone: [facility] 12-18-2018 zoster vaccine recombinant Mariela Chitra CCC-A Work Phone: [facility] 06-23-2018 influenza, injectabl e, quadrivalent, preservative free Mariela Chitra CCC-A Work Phone: [facility] 07-05-2017 influenza, high dose seasonal, preservative-free Mariela Chitra CCC-A Work Phone: [facility] 07-05-2017 Influenza, High-dose Seasonal, Quadrivalent, Preservative Free Mariela Chitra CCC-A Work Phone: [facility] 07-10-2016 influenza, high dose seasonal, preservative-free Mariela Chitra CCC-A Work Phone: [facility] 10-04-2015 influenza, high dose seasonal, preservative-free Mariela Chitra CCC-A Work Phone: [facility] 04-25-2015 pneumococcal conjuga te vaccine, 13 valent Mariela Chitra CCC-A Work Phone: [facility] 04-21-2015 pneumococcal conjuga te vaccine, 13 valent Mariela Chitra CCC-A Work Phone: [facility] 06-30-2014 seasonal influenza, intradermal, preservative free Mariela Chitra CCC-A Work Phone: [facility] 06-26-2013 influenza, high dose seasonal, preservative-free Mariela Chitra CCC-A Work Phone: [facility] 05-26-2013 pneumococcal polysaccharide vaccine, 23 valent Mariela Chitra CCC-A Work Phone: [facility] Payers Date Payer Category Payer Medicare (Managed Care) OBIE DRISCOLL [id number] 2019 Medicare ANTHEM MEDICARE ANTH MEDICARE ADVANTAGE [id number] 2019-Present [phone] [address] [place] [address] [id number] 1959 Unknown [id number] 1936 Unknown [id number] 2.16.840.1.967725.3.579. 2.356 1936 Unknown [id number] 2.16.840.1.895061.3.579. 2.593 1936 Unknown [id number] 2.16.840.1.395301.3.579. 2.593 1936 Unknown [id number] 2.16.840.1.330266.3.579. 2.593 1936 Unknown [id number] 2.16.840.1.418624.3.579. 2.647 1936 Unknown [id number] 2.16.840.1.471101.3.579. 2.647 1936 Unknown [id number] 2.16.840.1.257184.3.579. 2.647 1936 Unknown [id number] 2.16.840.1.382571.3.579. 2.1286 1936 Unknown [id number] 2.16.840.1.667824.3.579. 2.1286 1936 Unknown [id number] 2.16.840.1.482767.3.579. 2.1286 1936 Unknown [id number] 2.16.840.1.513131.3.579. 2.1286 1936 Unknown [id number] 2.16.840.1.463858.3.579. 2.1286 1936 Unknown [id number] 2.16.840.1.570761.3.579. 2.1286 1936 Unknown [id number] 2.16.840.1.509938.3.579. 2.1286 1936 Unknown [id number] 2.16.840.1.449512.3.579. 2.1259 1936 Unknown [id number] 2.16.840.1.202663.3.579. 2.1259 1936 Unknown [id number] 2.16.840.1.144264.3.579. 2.1259 1936 Unknown [id number] 2.16.840.1.479232.3.579. 2.1259 1936 Unknown [id number] 2.16.840.1.219828.3.579. 2.1259 1936 Unknown [id number] 2.16.840.1.108022.3.579. 2.1259 1936 Unknown [id number] 2.16.840.1.980612.3.579. 2.1259 1936 Unknown [id number] 2.16.840.1.867409.3.579. 2.1259 Unknown Unknown [id number] Social History Date Type Detail Facility Tobacco smoking status [facility] Tobacco smoking consumption unknown [facility] Start: 03-11-2019 End: 06-16-2024 History of Social function [facility] Start: 03-11-2019 End: 06-16-2024 Childcare [facility] Childcare Unknown [facility] Start: 1935 Sex assigned at Not on file P [facility] Start: 03-26-2024 Tobacco smoking status NHIS Never smoked tobacco [facility] Start: 03-26-2024 Tobacco use and exposure Smokeless tobacco non-user [facility] Start: 06-16-2024 End: 07-28-2024 Alcoholic beverage intake Lifetime non-drinker (finding) [facility] Within the last year , have you been afraid of your partner or ex-partner? No [facility] Are you now , , , , never or living with a partner? [facility] How often to you hav e a drink containing alcohol? Never [facility] Do you feel stress - tense, restless, nervous, or anxious, or unable to sleep at night because your mind is troubled all the time - these days [OSQ] Not at all [facility] (I/We) worried whether (my/our) food would run out before (I/we) got money to buy more. Never true [facility] In the past 12 months, was there a time when you were not able to pay the mortgage or rent on time? Yes [facility] Start: 01-31-2023 Alcohol Comment caffeine [facility] NEGATED: Highlighted rowStart: NINF History of tobacco use Passive smoker [facility] Medical Equipment Procedure Code Equipment Code Equipment Origin al Text Equipment Identifier Dates 1 each by Other route in the morning and 1 each in the evening and 1 each before bedtime. [id number] Start: 06-16-2024 USE TO TEST BLOO D SUGAR ONCE DAILY [id number] Start: 08-21-2023 Clinical Notes 01-22-2023 to 07-28-2024 Elliott Hendrix MD - 07/28/2024 3:30 PM EDTGail CALE Blackmon - 07/22/2024 1:00 PM Jose Francisco Hendrix MD - 07/16/2024 2:00 PM EDTTelephone Encounter - Kerriemelania Bob - 07/14/2024 8:54 AM EDT Note Date & Type Note Facility 07-28-2024 History of Presen t illness Narrative Images from the original note were not included. Patient ID: Daysi Hood is a 88 y.o. female who presents for: The patient has with them today and independent historian; Her daughter. The independent historian is here to ensure that the information related to us in the HPI and review of systems is accurate. They are also here to help the patient to understand and follow through with treatment plans established today. Pt is here for follow-up of chronic pain related to lower back. Her/His pain is well controlled. Pain is usually 1/10, described with the pain medication, as aching and dull and occurs every day. She has been on Ora and they told her she could take 1 tablet BID but she Usually does not need more than one a day in the morning upon arising. She does have days though where the pain persists in his worse and she takes it a 2nd time. She has been on this since May and her pain has been controlled since. She had seen pain management in the past but they told her at Low dose per day, controlling her pain they did not think there was anything they could do for her. She denies any side effects specifically GI, sedation, confusion. Review of Systems Constitutional: Negative for chills and fever. Respiratory: Negative for cough, shortness of breath and wheezing. Cardiovascular: Negative for chest pain and palpitations. Gastrointestinal: Negative for abdominal pain. Genitourinary: Negative for frequency and urgency. Objective The patient is pleasant and in no acute distress The patient does not appear to have a gross neurologic deficit, other than some pausing and collecting her thoughts prior to speaking which I do not think is unusual at 88. The patient has good eye contact and clear speech She has multiple arthritic changes noted across multiple joints especially noting the hands and the knees. She does have some mild kyphosis with some increased tonicity to this paraspinal musculature. Decreased range of motion at the neck. No specific pain points. She can actually get in and out of the chair surprisingly good. She is somewhat forward flexed a proximally 30 degrees on standing and walking. She does have lumbar paraspinal hypertonicity. Mild tenderness especially on the right. Decreased range of motion lumbar spine. Visit Vitals Ht 5' 4 Wt 145 lb 8 oz BMI 24.98 kg/m OB Status Postmenopausal Smoking Status Never BSA 1.73 m PDMP reviewed, Elliott Hendrix MD on 07/28/2024 3:58 PM Appears as expected. COMM reviewed Allergies Allergen Reactions Cefdinir Other Nitrofurantoin Other Current Outpatient Medications on File Prior to Visit Medication Sig Dispense Refill acetaminophen (Tylenol) 500 MG tablet Take 1 tablet by mouth every 8 (eight) hours if needed for moderate pain aspirin 81 MG EC tablet take 1 tablet by oral route every day Oral atorvastatin (Lipitor) 40 MG tablet take 1 tablet by oral route every day Oral calcium 150 MG tablet as directed Orally carvedilol (Coreg) 3.125 MG tablet Take 1 tablet (3.125 mg) by mouth in the morning and 1 tablet (3.125 mg) in the evening. Take with meals. 180 tablet 0 cholecalciferol (Vitamin D-3) 25 MCG (1000 UT) capsule Vitamin D3 1000 empagliflozin (Jardiance) 10 MG Take 1 tablet by mouth in the morning. ezetimibe (Zetia) 10 MG tablet Take 10 mg by mouth in the morning. HYDROcodone-acetaminophen (Ora) 5-325 MG tablet Take 1 tablet by mouth Daily Lancets (onetouch ultrasoft) lancets 1 each by Other route in the morning and 1 each in the evening and 1 each before bedtime. 100 each 2 lisinopril 2.5 MG tablet take 1 tablet by oral route every day Oral OneTouch Ultra test strip USE TO TEST BLOOD SUGAR ONCE DAILY 100 strip 3 spironolactone (Aldactone) 25 MG tablet Take 0.5 tablets by mouth 1 (one) time each day. No current facility-administered medications on file prior to visit. 1. Chronic pain syndrome (Primary) Chronic problem, stable, multifactorial, with complex decision making. The patient presents for re-evaluation of their chronic pain syndrome and treatment recommendations. They note, that the pain is still present but under reasonable control with home therapies and medications. They state that they are taking their medications compliantly and perceiving a benefit specifically from these medications. Is noted that the hydrocodone was started prior to establishing with me. They deny any significant side effects from the medications themselves. The treatment program enables them to continue their activities of daily living. I discussed with the both of them that I will give them a full 30 day supply. I do expect this to last longer than 30 days as a 2nd dose is only as needed. I specifically note the patient has one or more high risk medications that is a chronic problem that specifically increases complexity of decision making and complicates all prescribing including prescription renewal consistent with a moderate or complex degree of decision making. A high-risk medicine is one that may cause serious health problems if not taken the correct way, or taken with another drug or food item that it may interact with. If the high-risk medication includes a controlled or reportable substance, The OARRS and NARX scores were reviewed and seem to be consistent with their prescribing pattern. The Current Opioid Misuse Measure (COMM) is reviewed and there is no evidence of aberrant behavior or abuse. Treatment regimens are increasingly complex and potentially harmful, and people with high risk medications need regular review and prescribing optimization. - HYDROcodone-acetaminophen (Ora) 5-325 MG tablet; Take 1 tablet by mouth 2 (two) times a day as needed for moderate pain Dispense: 60 tablet; Refill: 0 - Rapid drug screen, urine 2. Lumbosacral spondylosis without myelopathy Chronic problem, stable, a component of the chronic pain syndrome and monitored longitudinally. - Rapid drug screen, urine 3. Postural kyphosis of cervicothoracic region Chronic problem, stable, a component of the chronic pain syndrome and monitored longitudinally - Rapid drug screen, urine 4. Controlled substance agreement signed See the scanned document - Rapid drug screen, urine 5. Medication monitoring encounter Office Visit on 07/28/2024 Component Date Value Ref Range Status AMPHETAMINES 07/28/2024 Negative Final BARBITURATES 07/28/2024 Negative Final BUPRENORPHINE 07/28/2024 Negative Final BENZODIAZEPINES 07/28/2024 Negative Final COCAINE METABOLITE 07/28/2024 Negative Final ECSTASY 07/28/2024 Negative Final METHADONE 07/28/2024 Negative Final OPIATES 07/28/2024 Negative Final OXYCODONE 07/28/2024 Negative Final PHENCYCLIDINE 07/28/2024 Negative Final TRICYCLICS 07/28/2024 Negative Final THC 07/28/2024 Negative Final MORPHINE 07/28/2024 Negative Final - Rapid drug screen, urine Polypharmacy Chronic problem The patient meets the criteria for polypharmacy; 5 or more prescriptions or multi-morbidity defined as 5 or more diagnoses. Polypharmacy can significantly increase the risk of preventable adverse drug events and negatively impact adherence. Consideration of diverse factors such as clinician agreement, patient perspective, and de-prescribing, as appropriate can improve patient outcomes while simplifying care. This requires longitudinal monitoring as there is at least a moderate risk of morbidity and requires at least a moderate degree of evaluation and management. documented in this encounter [facility] 07-22-2024 History of Presen t illness Narrative Patient was in today to be fit with a [employer] HCS 513RIC LI T hearing aid that she obtained using her HCS benefit. Patient is an experienced hearing aid wearer. Patient was shown the pairer inspector and maintenance tasks. Patient aids were coupled to 1M receivers with XS Pwr domes. Patient had no trouble with insertion or removal. Patient was experiencing feedback in her right hearing aid. I ran feedback measures on the right and patient was pleased. She stated the aids were very clear. Patient does not use a smart phone. She was scheduled for a follow up in approx one month Cosigned by RENEE Lopez at 07/24/2024 9:32 AM EDT documented in this encounter [facility] 07-16-2024 History of Presen t illness Narrative Images from the original note were not included. Subjective : Chief Complaint: Daysi Hood is an 88 y.o. female here for an annual wellness visit. I have reviewed and reconciled the history and medication list with the patient today. Current Outpatient Medications Medication Sig Dispense Refill acetaminophen (Tylenol) 500 MG tablet every 8 (eight) hours. aspirin 81 MG EC tablet take 1 tablet by oral route every day Oral atorvastatin (Lipitor) 40 MG tablet take 1 tablet by oral route every day Oral calcium 150 MG tablet as directed Orally carvedilol (Coreg) 3.125 MG tablet Take 1 tablet (3.125 mg) by mouth in the morning and 1 tablet (3.125 mg) in the evening. Take with meals. 180 tablet 0 cholecalciferol (Vitamin D-3) 25 MCG (1000 UT) capsule Vitamin D3 1000 empagliflozin (Jardiance) 10 MG Take 1 tablet by mouth in the morning. ezetimibe (Zetia) 10 MG tablet Take 10 mg by mouth in the morning. Lancets (onetouch ultrasoft) lancets 1 each by Other route in the morning and 1 each in the evening and 1 each before bedtime. 100 each 2 lisinopril 2.5 MG tablet take 1 tablet by oral route every day Oral OneTouch Ultra test strip USE TO TEST BLOOD SUGAR ONCE DAILY 100 strip 3 spironolactone (Aldactone) 25 MG tablet Take 0.5 tablets by mouth 1 (one) time each day. No current facility-administered medications for this visit. Review of Systems unremarkable except as mentioned List of current healthcare providers: Patient Care Team: Elliott Hendrix MD as PCP - General (Family Medicine) Chuyita Peters MD as PCP - SANDRA Kerns MA as Client Manager (Family Medicine) Devin Kelsey MD as Dean Of Girls (Family Medicine) Saurav Girard MD (Ophthalmology) Medicare Annual Visit Over the past 2 weeks, how often have you been bothered by any of the following problems? Little interest or pleasure in doing things: Not at all Feeling down, depressed, or hopeless: Not at all Patient Health Questionnaire-2 Score: 0 Padron Fall Risk History of Falling, Immediate or Within 3 Months: Yes Secondary Diagnosis: No Ambulatory Aid: Walks without aid/bedrest/nurse assist Intravenous Therapy/Heparin Lock: No Gait/Transferring: Normal/bedrest/immobile Mental Status: Oriented to own ability Padron Fall Risk Score: 25 Health Risk Assessment Form Do you need help eating, bathing, using the toilet, dressing, or getting around your home?: No Can you prepare your own meals?: Yes Can you do your own housework without help?: Yes Can you shop for groceries or clothes without help?: Yes Do you exercise for about 20 minutes 3 or more days a week?: No How confident are you that you can control and manage most of your health problems?: Very confident Can you mange your money, credit cards and accounts, pay bills and taxes?: Yes Vision Screening: Yes, patient sees regular dispatcher radio/parts processor Hearing Screening: Yes, uses hearing aids Cognitive Screening Self Assessment: No concerns rasied by family members, friends, or caretakers Three Word Registration: Leader, Season, Table Clock Drawing: Normal Clock - 2 Three Word Recall: 2/3 words correct - 2 Total Score (0-5 Points): 4 Pain Assessment Pain Score: 3 Advance Care Planning Do you have a living will?: Yes Do you have a medical power of claim attorney?: No Objective : BP 120/70 Pulse 87 Ht 5' 4 Wt 145 lb 8 oz SpO2 98% BMI 24.98 kg/m No results found. Physical Exam The patient is pleasant and in no acute distress. The head is normocephalic and atraumatic. Both eyes appear grossly normal without obvious lid pathology or icterus. Both ears hearing is grossly intact. The neck is supple and trachea is midline. No masses are appreciated. The anterior cervical lymphatics demonstrates shoddy bilateral nontender lymphadenopathy. There is no supraclavicular lymphadenopathy. The heart is regular rate and rhythm without S3, S4. No murmur. The patient has normal respiratory pattern. The breath sounds are diffusely decreased butsymmetrical without evidence of rhonchi or rales. No wheezing. The skin is warm and dry. The lower extremities have trace edema. Neurologic screening exam is nonfocal. The patient is alert. There is no overt gross evidence of cognitive impairment The patient has good eye contact and speech is clear. Appropriate affect. Assessment/Plan : The following health maintenance schedule was reviewed with the patient and provided in printed form in the after visit summary: Health Maintenance Topic Date Due Influenza Vaccine (1) 05/31/2024 Diabetes: Hemoglobin A1C 09/25/2024 Diabetes: Retinopathy Screening 04/16/2025 Diabetes: Urine Protein Screening 06/24/2025 Pneumococcal Vaccine: 65+ Years Completed 1. Encounter for Medicare annual wellness exam (Primary) The patient is here for their Annual Medicare Wellness visit. Demographics were updated. Self-assessment was completed and reviewed. Past medical, family, and social history were updated. The medication list updated and reviewed by the doctor. A list of other current medical providers is established and updated. Time was spent discussing health maintenance issues, ordering testing as appropriate, and a schedule was reviewed regarding recommended screening. We discussed safety issues and fall risk. Depression screening was completed and addressed as appropriate. Fall screening was completed and addressed. Cognitive function was assessed by direct observation, cognitive screening as indicated, and assessment of ability to perform ADL's. The BMI and discussed. Major risk factors for chronic disease including family history were discussed. An after visit summary is made available to the patient 2. Advance directive discussed with patient Patient voluntarily agreed to discuss advance care planning at today's wellness visit. We discussed that an advance directive is a legal document that only goes into effect if the patient is incapacitated and unable to speak for themselves. This would help us to decide what care the patient would want. We discussed emergency treatments to keep the patient alive such as CPR, ventilator use and concept of comfort. We discussed how patients could make their wishes known through a living will, durable power of claim attorney for healthcare, or other advanced directives. We discussed telling baxter people about their advance and a copy will be kept in the EHR. I discussed that they should also make me an emergency contact in their cell phone, and/or notify their POA that I have a copy of the advanced directives. 3. Encounter for screening for other disorder Clinically insignificant depression screening 4. Screening for alcohol problem Negative alcohol screening 5. Ventricular tachycardia (CMS/HCC) Chronic problem currently asymptomatic. Monitor longitudinally and comanaged with Cardiology. 6. Primary hypertension (CMS/HCC) Chronic problem currently asymptomatic. Monitor longitudinally and comanaged with Cardiology. 7. Ischemic cardiomyopathy (CMS/HCC) Chronic problem currently asymptomatic. Monitor longitudinally and comanaged with Cardiology. 8. 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 Monitor longitudinally and comanaged with Cardiology. 9. Chronic systolic heart failure (CMS/HCC) Chronic problem currently asymptomatic. Monitor longitudinally and comanaged with Cardiology. 10. Atherosclerosis of [place] coronary artery of [place] heart without angina pectoris (CMS/HCC) Chronic problem currently asymptomatic. Monitor longitudinally and comanaged with Cardiology. 11. 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) Chronic problem currently asymptomatic. Monitor longitudinally 12. Type 2 diabetes mellitus with stage 3b chronic kidney disease, without long-term current use of insulin (HCC) (CMS/HCC) Chronic problem currently asymptomatic. Monitor longitudinally 13. Mixed hyperlipidemia (CMS/HCC) Chronic problem currently asymptomatic. Monitor longitudinally Electronically signed by Elliott Hendrix MD on July 28, 2024 documented in this encounter [facility] 07-14-2024 Telephone encounter Note Pt is scheduled with Dr Bob 07/15/24. [facility] 07-14-2024 Miscellaneous Notes Pt is scheduled with Dr Bob 07/15/24. Pt needs appt to F/U audio Pt is [facility] patient and saw me for audio + hearing aid discussion. Pt reports worse hearing in her right ear for many years (her daughter remembers this growing up.) She has never seen ENT for work up. Audio completed today and can be reviewed in the PROCEDURE TAB under the main CHART REVIEW TAB. Please review and determine if further follow up is indicated. Thanks Clarisse documented in this encounter [facility] 07-14-2024 Telephone encounter Note Pt needs appt to F/U audio [facility] Work Phone: 07-13-2024 Telephone encounter Note Pt is [facility] patient and saw me for audio + hearing aid discussion. Pt reports worse hearing in her right ear for many years (her daughter remembers this growing up.) She has never seen ENT for work up. Audio completed today and can be reviewed in the PROCEDURE TAB under the main CHART REVIEW TAB. Please review and determine if further follow up is indicated. Thanks Clarisse [facility] Work Phone: 07-13-2024 History of Presen t illness Narrative History: Pt has hearing aid benefit through [facility]. She is experienced hearing aid user ([employer] LIANET aids.) At her most recent hearing aid visit she was jerome she needed new aids and was quoted almost $7000. Soni does not work with her insurance so pt would have to pay out of pocket. Her came to our office recently and selected advanced LIANET aids for $250. Pt is interested in trying the same type of hearing aids. 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 She denies tinnitus. 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 TM intact post cleaning Pure Tone Audiometry Right Ear: Mild sloping to profound sensorineural hearing loss above 250 Hz Left Ear: Mild to severe sensorineural hearing loss Speech Audiometry Right SRT = 45 dB and word discrimination score at 80 dBHL (masked) = 84% Left SRT = 40 dB and word discrimination score at 75 dBHL (masked) = 96% Tympanometry Right Ear: Type A tympanogram Left Ear: Type A tympanogram Impressions: Asymmetrical sensorineural hearing loss worse in the right ear. Will have Dr. Bob review to determine if ENT appointment is needed. Hearing Aid Discussion: Pt is good candidate for hearing aids and is eligible for hearing aids through her [employer] Benefit. She is interested in Advanced LIANET aids and will owe [employer]CS $250. Gave her daughter the AR number for [facility] so she can call in the payment. Pt chose [facility] and needs 1M receivers. Will place order in portal today. Pt scheduled for HAF 08-19-24 in the [place] [facility] documented in this encounter [facility] 06-24-2024 History of Presen t illness Narrative [facility] [address] [place] [address] Patient: Daysi Hood Sex: female : 1935 Age: 88 y.o. PCP: Jose Maddox, SEX THERAPIST-RESTAURANT SHIFT SUPERVISOR 06/24/2024 Daysi Hood is here for a(n) initial consultation for low back pain. Pain becomes severe with walking and activity. She reports she has not had xrays or Physical therapy for this pain. Patient and daughter report patient was recently started on Ora 5/325 mg BID PRN. Patient takes one pill a day and has complete relief of her pain. Date of onset of pain: couple years ago , pain has lasted greater than 3 months. Chief Complaint Patient presents with Back Pain HPI: Back Pain This is a chronic problem. The current episode started more than 1 year ago (couple years ago). The problem occurs 2 to 4 times per day. The problem has been gradually worsening since onset. The pain is present in the gluteal, lumbar spine and sacro-iliac. The quality of the pain is described as aching. The pain does not radiate. Pain scale: 2/10 today w/Ora, increases to 9/10 w/ADLs. The pain is moderate. The pain is Worse during the day. The symptoms are aggravated by bending (walking, stairs, lifting, cold, heat). Pertinent negatives include no chest pain, fever, leg pain, numbness, weakness or weight loss. Risk factors include history of cancer. She has tried ice, heat and NSAIDs (Tylenol, Ora, Dry Needling, Prev PT years ago, Biofreeze) for the symptoms. The treatment provided mild relief. The effect of pain on patient's ADLS: Moderate Impairment. Past Medical History: Diagnosis Date Atherosclerosis of [place] coronary artery Breast cancer ([facility] [place]) 2000 LEFT Cardiac LV ejection fraction of 20-34% Chronic systolic heart failure ([facility] [place]) Congenital heart failure ([facility] [place] [place]) Diabetic renal disease ([facility] [place]) Heart block Hyperlipidemia Hypertension Ischemic cardiomyopathy Kidney disease, chronic, stage III (GFR 30-59 ml/min) ([facility] [place] [place]) Low back pain Tricuspid valve disorders, non-rheumatic Type II diabetes mellitus ([facility] [place]) Ventricular tachycardia ([facility] [place]) Past Surgical History: Procedure Laterality Date BREAST BIOPSY Left 2000 CARDIAC PACEMAKER PLACEMENT 2013 CORONARY ARTERY BYPASS GRAFT 2013 MASTECTOMY Left 2000 WITH CHEMO AND RADIATION Allergies Allergen Reactions Cefdinir Nitrofurantoin Family History Problem Relation Age of Onset Breast cancer Cousin Breast cancer Cousin Breast cancer Cousin Social History Socioeconomic History Marital status: Spouse name: Not on file Number of children: Not on file Years of education: Not on file Highest education level: Not on file Occupational History Not on file Tobacco Use Smoking status: Not on file Smokeless tobacco: Not on file Substance and Sexual Activity Alcohol use: Not on file Drug use: Not on file Sexual activity: Not on file Other Topics Concern Not on file Social History Narrative Not on file Social Determinants of Health Financial Resource Strain: Low Risk (06/16/2024) Received from [facility] Overall Financial Resource Strain (CARDIA) Difficulty of Paying Living Expenses: Not hard at all Food Insecurity: No Food Insecurity (06/24/2024) Hunger Screening Food Insecurity - Worry: Never True Food Insecurity - Inability: Never True Transportation Needs: No Transportation Needs (06/16/2024) Received from [facility] PRAPARE - Transportation Lack of Transportation (Medical): No Lack of Transportation (Non-Medical): No Physical Activity: Inactive (06/16/2024) Received from [facility] Exercise Vital Sign Days of Exercise per Week: 0 days Minutes of Exercise per Session: 0 min Stress: No Stress Concern Present (06/16/2024) Received from [facility] [employer] [place] [employer] - Occupational Stress Questionnaire Feeling of Stress : Not at all Social Connections: Moderately Integrated (06/16/2024) Received from [facility] Social Connection and Isolation Panel [NHANES] Frequency of Communication with Friends and Family: Twice a week Frequency of Social Gatherings with Friends and Family: Twice a week Attends Oriental [employer] Services: More than 4 times per year Active Member of Clubs or Organizations: No Attends Club or Organization Meetings: Never Marital Status: Interpersonal Safety: Unknown (11/21/2023) Re[facility] [place] Safety & Environment Fear of Current or Ex-Partner: Not on file Emotionally Abused: Not on file Physically Abused: Not on file Sexually Abused: Not on file Physically or Sexually Abused: Not on file Housing Instability: Unknown (06/16/2024) Received from [facility] Housing Stability Vital Sign Unable to Pay for Housing in the Last Year: No Number of Times Moved in the Last Year: Not on file Homeless in the Last Year: No Review of Systems Constitutional: Negative for chills, fever and weight loss. HENT: Negative. Eyes: Negative. Respiratory: Negative for cough and shortness of breath. Cardiovascular: Negative for chest pain. Gastrointestinal: Negative. Endocrine: Negative. Genitourinary: Negative. Musculoskeletal: Positive for back pain. Skin: Negative. Allergic/Immunologic: Negative. Neurological: Negative for weakness and numbness. Hematological: Negative. Psychiatric/Behavioral: Negative. Vital Signs: BP 101/56 Pulse 66 Ht 162.6 cm (5' 4 ) Wt 64.9 kg (143 lb) SpO2 96% BMI 24.55 kg/m Physical Exam: GENERAL - Healthy patient that appears stated age. HEENT - Normocephalic / Atraumatic, Extraoccular movements intact, trachea midline, thyroid within normal limits. CV - pulse regular, Warm extremities with appropriate color of nailbeds. RESP - No obvious wheezing, No Shortness of Breath, No overexertion response to exam maneuvers. COORDINATION - remains intact. PSYCH - Alert and Oriented x4, Attentive and appropriate, constitutionally normal, displays normal mood and affect per situation, answered questions appropriately during examination, demonstrated appropriate attention during discussion, demonstrated appropriate cognitive reasoning and understanding of the medical condition by asking appropriate questions regarding the diagnosis and risks/benefits/alternatives of treatment modalities. No obvious deficits in memory, reasoning, or intellect. Thoracic: SKIN - No rashes or bruising in the area of the patient s pain. LYMPH NODES - demonstrate no obvious enlargement. COORDINATION remains intact. EXTREMITIES - Extremities are warm, with minimal edema and palpable pulses. No Significant tenderness to palpation noted in the thoracic spine and paraspinal musculature. Mild pain is elicited with flexion, extension, and lateral rotation of the thoracic spine. Range of motion is not diminished with these motions. Facet palpation is negative for significant pain and facet loading maneuvers elicit only mild pain that is not concordant with the patient s normal pain complaints. STRENGTH - noted to be 5 out of 5 all muscle groups bilateral upper and lower extremities. No notable atrophy, fasciculations or spasm. SENSORY - No notable sensory deficits in the thoracic dermatomal distributions to touch or pinprick Lumbar: SKIN - No rashes or bruising in the area of the patient s pain. LYMPH NODES - demonstrate no obvious enlargement. EXTREMITIES - Lower extremities are warm, with minimal edema and palpable pulses. No significant tenderness to palpation noted in the lumbar spine and paraspinal musculature. Mild pain is elicited with flexion, extension, and lateral rotation of the lumbar spine. Range of motion is not diminished with these motions. Facet palpation is negative for significant pain and facet loading maneuvers elicit only mild pain that is not concordant with the patient s normal pain complaints. STRENGTH - noted to be 5 out of 5 all muscle groups bilateral lower extremities including muscles involving hip flexion and abduction, knee flexion and extension, as well as foot dorsiflexion and plantarflexion. No notable atrophy, fasciculations or spasm. SENSORY - No notable sensory deficits in the bilateral lower extremities to touch or pinprick in all dermatomal distributions. Straight Leg Raise is negative bilaterally. Gait is normal. Assessment/Treatment Plan: Daysi was seen today for back pain. Diagnoses and all orders for this visit: Thoracic spine pain Lumbar spine pain Monitor Follow up PRN The medications prescribed have been reviewed for medication interactions/contraindications and/or for upcoming procedures: continue current medication regimen without any changes. DISCUSSION: Treatment options discussed with patient and all questions answered to patient's satisfaction. Discussed the rules and regulations surrounding prescription of opioids and compliance at length. Failure to follow the rules and regulation will result in tapering and discontinuation of medications if applicable. Prescribed medication that requires intensive monitoring for toxicity We do not currently prescribe any controlled substance from this practice. Treatment plans discussed but not opted for at this time: We discussed at length options for treating her pain including lumbar and thoracic spine xrays, 6 week course of physical therapy, advanced imaging including MRI, medication changes and additions and interventional procedures. Pain is under adequate control. Patient had no pain today on physical exam. She reports 1 Ora 5/325 mg tablet per day manages her pain to her satisfaction. At this time it does appear that the patient s pain is under adequate control with conservative care. It is felt that we should continue this approach and continue to monitor these symptoms and address them again in the future if they become more problematic. This approach was discussed with the patient and family and they are in agreement. OARRS: Reviewed. Scribe Statement: Scribed for and in the presence of SWAPNIL RAMÍREZ PA-C by Corinne Flower CNA. Provider Statement: ISWAPNIL PA-C, personally performed the services described in the documentation, as scribed by Corinne Flower CNA in my presence, and it is both accurate and complete. Corinne Flower CNA 06/24/24 1519 Corinne Flower CNA 06/24/24 1541 Swapnil Ramírez PA-C 06/30/24 1145 documented in this encounter [facility] 06-08-2024 Note [facility] Subjective Daysi Hood is a 88 y.o. 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 year old female follows with Dr. Kelsey with history of CAD, status post CABG and tricuspid annuloplasty February 2013, CHF/cardiomyopathy, NSVT, s/p PPM for AV block, hypertension, hyperlipidemia, chronic kidney disease, type 2 diabetes mellitus. She is here today for follow-up visit. She reports that she has a chest pain every once a while which last usually for 1 minute and not related to exertion and it does not occur often. She states that she is active and very busy all the time, she denies any chest pain or shortness of breath with activity. She denies orthopnea or paroxysmal nocturnal dyspnea or dizziness or palpitations or legs edema ROS All systems were reviewed and they were negative except for the positive findings noted above in the history Past Surgical History: Procedure Laterality Date CORONARY ARTERY BYPASS GRAFT 04/14/2013 INSERT / REPLACE / REMOVE PACEMAKER Family History Problem Relation Name Age of Onset Coronary artery disease Other Social History Tobacco Use Smoking status: Never Smokeless tobacco: Never Substance Use Topics Alcohol use: Not Currently Drug use: Never Allergies Allergies Allergen Reactions Cefdinir Other Nitrofurantoin Monohyd/M-Cryst Other Medications Current Outpatient Medications: aspirin 81 mg EC tablet, Take 1 tablet every day by oral route., Disp: , Rfl: atorvastatin (Lipitor) 40 mg tablet, Take 1 tablet (40 mg) by mouth at bedtime., Disp: 90 tablet, Rfl: 3 calcium carb,cit-mag cit,ox-D3 300 mg-150 mg- 400 unit tablet, as directed Orally, Disp: , Rfl: carvedilol (Coreg) 3.125 mg tablet, Take 1 tablet (3.125 mg) by mouth with breakfast and with evening meal., Disp: 180 tablet, Rfl: 3 cholecalciferol (Vitamin D-3) 25 MCG (1000 UT) tablet, Take 1 tablet every other day by oral route., Disp: , Rfl: empagliflozin (Jardiance) 10 mg, Take 1 tablet (10 mg) by mouth once daily as directed., Disp: 90 tablet, Rfl: 3 ezetimibe (Zetia) 10 mg tablet, Take 1 tablet (10 mg) by mouth in the morning., Disp: 90 tablet, Rfl: 3 furosemide (Lasix) 40 mg tablet, Take 1 tablet (40 mg) by mouth every other day., Disp: 45 tablet, Rfl: 3 lisinopril 2.5 mg tablet, Take 1 tablet (2.5 mg) by mouth once daily as directed., Disp: 90 tablet, Rfl: 3 potassium chloride CR (Klor-Con M20) 20 mEq ER tablet, Take 1 tablet (20 mEq) by mouth once daily as directed., Disp: 90 tablet, Rfl: 3 spironolactone (Aldactone) 25 mg tablet, Take 0.5 tablets (12.5 mg) by mouth once daily as directed., Disp: 45 tablet, Rfl: 3 Objective Visit Vitals BP 123/73 (BP Location: Right arm, Patient Position: Sitting) Pulse 77 Ht 1.613 m (5' 3.5 ) Wt 65.3 kg (144 lb) SpO2 98% BMI 25.11 kg/m??? Smoking Status Never BSA 1.71 m??? Physical exam: GENERAL: alert and oriented x3, well developed, in no acute distress. HEAD: atraumatic, normocephalic. EYES: ALLISON, EOMI. NECK: trachea midline, no JVD present, no carotid bruits present. CARDIAC: S1, S2 present. RRR. No murmur, rubs, or gallops. RESPIRATORY: CTAB, no increased effort of breathing, no rales, rhonchi, or wheezing. ABDOMEN: soft, nontender, nondistended. EXTREMITIES: no lower extremity edema. No rash/skin discoloration present. NEURO: strength/sensation equal and symmetric in bilateral upper and lower extremities. PSYCH: appropriate mood, affect, and judgement. Recent Labs 03/26/2024 Cholesterol 101, triglycerides 61, HDL 45, LDL 44 HbA1c 6.6% 01/14/2024 Sodium 139, potassium 4.8, BUN 33, creatinine 1.24, glucose 100, calcium 8.7, GFR 42 12/17/2023 White blood count 5.9, hemoglobin 14, hematocrit 43, platelets 202 Magnesium 2.7 Vitamin D 60 Imaging and other tests EKG: Today 06/08/2024 showed atrial and ventricular paced rhythm with adequate capturing, abnormal EKG MUGA scan 02/17/2024 FINDINGS: There is mild decreased left ventricular contractility. The left ventricular ejection (more content not included)... [facility] 03-13-2024 Note [facility] Subjective Daysi Hood is a 88 y.o. year old female patient being seen for 6 mo follow up CAD, CHF, and NSVT s/p PPM. Had muga scan and routine device interrogation last month. She denies chest pain, palpitations, and lightheadedness/syncope. She has SOB. Had labs in December 2023. She is doing well she says. Her transition mgr rn stopped lasix since last visit. Patient Active Problem List Diagnosis Cardiac pacemaker in situ Congestive heart failure (CMS/HCC) Coronary atherosclerosis Dizziness Generalized ischemic myocardial dysfunction Heart block Hyperlipidemia Low blood pressure Nonrheumatic tricuspid valve disorder Primary cardiomyopathy (CMS/HCC) Ventricular tachycardia (CMS/HCC) Stage 3b chronic kidney disease (CMS/HCC) Routine general medical examination at health care facility Other chronic pain Lumbosacral spondylosis without myelopathy Diabetic renal disease (CMS/HCC) Decreased estrogen level Chronic systolic heart failure (CMS/HCC) Abnormal results of cardiovascular function studies Cardiac LV ejection fraction of 20-34% Type 2 diabetes mellitus without complication (CMS/HCC) Primary malignant neoplasm of breast (CMS/HCC) Essential hypertension Family History Problem Relation Name Age of Onset Coronary artery disease Other Social History Tobacco Use Smoking status: Never Smokeless tobacco: Never Substance Use Topics Alcohol use: Not Currently Drug use: Never HPI Daysi is a 87-year-old woman with history of coronary artery disease s/p bypass surgery and tricuspid annuloplasty in February 2013. She is also s/p pacemaker implant for AV block which was at the time of her NSTEMI presentation. Post bypass she had a left leg DVT that was treated with anticoagulation for 6 months and follow up ultrasound showed clearing of the DVT. Her echocardiogram in 06/2013 showed mildly reduced LV systolic function with no valvular dysfunction. Her pacer interrogation 11/21/2015 showed no arrhythmia. Her pacer interrogation 05/16/2017 showed no arrhythmia. She is on metformin for diabetes. Visit of 07/23/2018: Since visit of 06/09/2018 she has been well with no chest pain. She has no shortness of breath. She has no palpitations. She walks every day and does well with that. Most recently her device interrogation showed an episode of tachycardiac lasting 10 seconds, ? VT. This was in December 2017. An echocardiogram was requested by Dr Aguero, this was done on 05/26/2018 showed EF 35-40%, normal right sided pressures, no significant valvular abnormalities, no significant change compared to 2013 study. Given NSVT I checked a stress test 06/16/2018 and this showed no ischemia. EF was 34% by stress test. There was an area of anteroseptal and inferolateral prior [place]. Update 09/01/2018: She is seen in follow up. At last visit I added aldactone 12.5 mg daily. BMP 08/06/2018 showed Cr 1.06, BUN 24, K 4.1 Mg 06/09/2018: 2.1 She has been doing well. She sustained a mechanical fall and injured her wrist. No chest pain. No dyspnea. No palpitations. No dizziness. Echocardiogram 08/27/2018: Global left ventricular systolic function is moderately reduced (Visually estimated EF 30-35%). The left ventricle is normal size. Left ventricular wall thickness is normal. Regional wall motion abnormalities (see diagram). Doppler studies suggest normal right sided pressures. Limited echocardiogram performed to assess left ventricular systolic function and right ventricular systolic pressure. Compared to the prior echocardiogram of 05/26/18 there is no significant change. Update 06/19/2020: She is seen in follow-up via telemedicine. I last saw her in August 2018. At that time I referred her to Danilo Aguero for discussion regarding upgrade of her pacemaker to [employer] device. She met with him and he went over the procedure and indications and benefits. She decided not to proceed with that. Today she is seen in follow-up. I have not seen her in 2 years. She reports that she has been doing well with no angina or heart failure symptoms. She reports that she is content with what she has and does not want to proceed with device upgrade. Device check 06/08/2019: No events. Update 06/12/2021: She is seen in follow-up. She has been doing well since last visit a year ago. No chest pain no heart failure symptoms. Device check today 06/12/2021: Pacemaker dependent, no events. Blood testing 02/14/2021: BUN 35, creatinine 1.1, potassium 4.4, LFTs within normal limits, cholesterol 128, triglycerides 62, LDL 71, HDL 45. Hemoglobin 13, platelets 219. Visit of 12/10/2022: she is seen in follow-up. Overall she reports that she has been doing reasonably well. She does not do much in terms of physical activities. She does not have chest pain or lower extremity edema. She does not feel palpitations. She says she does not have shortness of (more content not included)... [facility] 11-29-2023 Note rn [facility] 08-02-2023 Note [place] [facility] Subjective Daysi Hood is a 87 y.o. year old female patient being seen for Follow-up Patient Active Problem List Diagnosis Cardiac pacemaker in situ Congestive heart failure (CMS/HCC) Coronary atherosclerosis Dizziness Generalized ischemic myocardial dysfunction Heart block Hyperlipidemia Low blood pressure Nonrheumatic tricuspid valve disorder Primary cardiomyopathy (CMS/HCC) Ventricular tachycardia (CMS/HCC) Stage 3b chronic kidney disease (CMS/HCC) Routine general medical examination at health care facility Other chronic pain Lumbosacral spondylosis without myelopathy Diabetic renal disease (CMS/HCC) Decreased estrogen level Chronic systolic heart failure (CMS/HCC) Abnormal results of cardiovascular function studies Cardiac LV ejection fraction of 20-34% Type 2 diabetes mellitus without complication (CMS/HCC) Primary malignant neoplasm of breast (CMS/HCC) Family History Problem Relation Name Age of Onset Coronary artery disease Other Social History Tobacco Use Smoking status: Never Smokeless tobacco: Never Substance Use Topics Alcohol use: Not Currently Drug use: Never HPI Daysi is a 87-year-old woman with history of coronary artery disease s/p bypass surgery and tricuspid annuloplasty in February 2013. She is also s/p pacemaker implant for AV block which was at the time of her NSTEMI presentation. Post bypass she had a left leg DVT that was treated with anticoagulation for 6 months and follow up ultrasound showed clearing of the DVT. Her echocardiogram in 06/2013 showed mildly reduced LV systolic function with no valvular dysfunction. Her pacer interrogation 11/21/2015 showed no arrhythmia. Her pacer interrogation 05/16/2017 showed no arrhythmia. She is on metformin for diabetes. Visit of 07/23/2018: Since visit of 06/09/2018 she has been well with no chest pain. She has no shortness of breath. She has no palpitations. She walks every day and does well with that. Most recently her device interrogation showed an episode of tachycardiac lasting 10 seconds, ? VT. This was in December 2017. An echocardiogram was requested by Dr Aguero, this was done on 05/26/2018 showed EF 35-40%, normal right sided pressures, no significant valvular abnormalities, no significant change compared to 2013 study. Given NSVT I checked a stress test 06/16/2018 and this showed no ischemia. EF was 34% by stress test. There was an area of anteroseptal and inferolateral prior [place]. Update 09/01/2018: She is seen in follow up. At last visit I added aldactone 12.5 mg daily. BMP 08/06/2018 showed Cr 1.06, BUN 24, K 4.1 Mg 06/09/2018: 2.1 She has been doing well. She sustained a mechanical fall and injured her wrist. No chest pain. No dyspnea. No palpitations. No dizziness. Echocardiogram 08/27/2018: Global left ventricular systolic function is moderately reduced (Visually estimated EF 30-35%). The left ventricle is normal size. Left ventricular wall thickness is normal. Regional wall motion abnormalities (see diagram). Doppler studies suggest normal right sided pressures. Limited echocardiogram performed to assess left ventricular systolic function and right ventricular systolic pressure. Compared to the prior echocardiogram of 05/26/18 there is no significant change. Update 06/19/2020: She is seen in follow-up via telemedicine. I last saw her in August 2018. At that time I referred her to Danilo Aguero for discussion regarding upgrade of her pacemaker to [employer] device. She met with him and he went over the procedure and indications and benefits. She decided not to proceed with that. Today she is seen in follow-up. I have not seen her in 2 years. She reports that she has been doing well with no angina or heart failure symptoms. She reports that she is content with what she has and does not want to proceed with device upgrade. Device check 06/08/2019: No events. Update 06/12/2021: She is seen in follow-up. She has been doing well since last visit a year ago. No chest pain no heart failure symptoms. Device check today 06/12/2021: Pacemaker dependent, no events. Blood testing 02/14/2021: BUN 35, creatinine 1.1, potassium 4.4, LFTs within normal limits, cholesterol 128, triglycerides 62, LDL 71, HDL 45. Hemoglobin 13, platelets 219. Visit of 12/10/2022: she is seen in follow-up. Overall she reports that she has been doing reasonably well. She does not do much in terms of physical activities. She does not have chest pain or lower extremity edema. She does not feel palpitations. She says she does not have shortness of breath at rest or her little physical activities that she does on a daily basis. Visit of 03/21/2023: She is seen in follow-up. At last visit I checked an echocardiogram which showed an ejection fraction of 25%. I then had her undergo a stress test which was a Lexiscan stress test with myocard (more content not included)... [facility] 01-22-2023 Note CARDIAC STRESS TEST Requesting Physician: Devin Kelsey M.D. Procedure Date:01/22/2023 PERFORMING PHYSICIAN: Tarun Cole M.D. INDICATIONS: CAD, CHF. STRESS TEST PROTOCOL: Lexiscan myocardial perfusion scan. Resting heart rate: 70 beats per minute. Max hear rate: 90 beats per minute. Resting blood pressure: 138/70 Maximum blood pressure: 138/70 Resting EKG: Abnormal, paced rhythm. CONCLUSION: 1. Abnormal resting EKG. 2. Non-diagnostic EKG stress test given underlying paced rhythm. 3. Please refer to separately interpreted and reported nuclear myocardial perfusion imaging report. [facility] Evaluation note Diagnosis Thoracic spine pain- Primary Pain in thoracic spine Lumbar spine pain [facility]* Diagnosis 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)- Primary Routine general medical examination at health care facility Routine general medical examination at a health care facility Other chronic pain Cardiac LV ejection fraction of 20-34% Atherosclerosis of [place] coronary artery of [place] heart without angina pectoris (CMS/HCC) Chronic systolic heart failure (CMS/HCC) Chronic systolic heart failure Ischemic cardiomyopathy (CMS/HCC) Other specified forms of chronic ischemic heart disease Essential hypertension (CMS/HCC) Unspecified essential hypertension Presence of cardiac pacemaker Cardiac pacemaker in situ Ventricular tachycardia (CMS/HCC) Paroxysmal ventricular tachycardia 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) Pure hypercholesterolemia (CMS/HCC) Pure hypercholesterolemia Osteopenia of both hips H/O left mastectomy History of left breast cancer Breast cancer screening by mammogram Essential hypertension (CMS/HCC)- Primary Unspecified essential hypertension Chronic systolic heart failure (CMS/HCC) Chronic systolic heart failure Ischemic cardiomyopathy (CMS/HCC) 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) 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) Hyperlipidemia, unspecified hyperlipidemia type (CMS/HCC) Hyperlipidemia, unspecified hyperlipidemia type (CMS/HCC)- Primary Type 2 diabetes mellitus with stage 3a chronic kidney disease, without long-term current use of insulin (HCC) (CMS/HCC) Essential hypertension (CMS/HCC) Unspecified essential hypertension Chronic systolic heart failure (CMS/HCC) Chronic systolic heart failure 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, without long-term current use of insulin (HCC) (CMS/HCC)- Primary Hyperlipidemia, unspecified hyperlipidemia type (CMS/HCC) Chronic systolic heart failure (CMS/HCC) Chronic systolic heart failure Essential hypertension (CMS/HCC) Unspecified essential hypertension Fall, subsequent encounter Other chronic pain- Primary 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, without long-term current use of insulin (HCC) (CMS/HCC) Hyperlipidemia, unspecified hyperlipidemia type (CMS/HCC) Asymmetrical sensorineural hearing loss- Primary Sensorineural hearing loss, asymmetrical Encounter for Medicare annual wellness exam Advance directive discussed with patient Encounter for screening for other disorder Screening for alcohol problem Screening for alcoholism documented [facility] this [facility] Diagnosis 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)- Primary Routine general medical examination at health care facility Routine general medical examination at a health care facility Other chronic pain Cardiac LV ejection fraction of 20-34% Atherosclerosis of [place] coronary artery of [place] heart without angina pectoris (CMS/HCC) Chronic systolic heart failure (CMS/HCC) Chronic systolic heart failure Ischemic cardiomyopathy (CMS/HCC) Other specified forms of chronic ischemic heart disease Essential hypertension (CMS/HCC) Unspecified essential hypertension Presence of cardiac pacemaker Cardiac pacemaker in situ Ventricular tachycardia (CMS/HCC) Paroxysmal ventricular tachycardia 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) Pure hypercholesterolemia (CMS/HCC) Pure hypercholesterolemia Osteopenia of both hips H/O left mastectomy History of left breast cancer Breast cancer screening by mammogram Essential hypertension (CMS/HCC)- Primary Unspecified essential hypertension Chronic systolic heart failure (CMS/HCC) Chronic systolic heart failure Ischemic cardiomyopathy (CMS/HCC) 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) 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) Hyperlipidemia, unspecified hyperlipidemia type (CMS/HCC) Hyperlipidemia, unspecified hyperlipidemia type (CMS/HCC)- Primary Type 2 diabetes mellitus with stage 3a chronic kidney disease, without long-term current use of insulin (HCC) (CMS/HCC) Essential hypertension (CMS/HCC) Unspecified essential hypertension Chronic systolic heart failure (CMS/HCC) Chronic systolic heart failure 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, without long-term current use of insulin (HCC) (CMS/HCC)- Primary Hyperlipidemia, unspecified hyperlipidemia type (CMS/HCC) Chronic systolic heart failure (CMS/HCC) Chronic systolic heart failure Essential hypertension (CMS/HCC) Unspecified essential hypertension Fall, subsequent encounter Other chronic pain- Primary 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, without long-term current use of insulin (HCC) (CMS/HCC) Hyperlipidemia, unspecified hyperlipidemia type (CMS/HCC) Asymmetrical sensorineural hearing loss- Primary Sensorineural hearing loss, asymmetrical documented in this encounter [facility]* Diagnosis 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)- Primary Routine general medical examination at health care facility Routine general medical examination at a health care facility Other chronic pain Cardiac LV ejection fraction of 20-34% Atherosclerosis of [place] coronary artery of [place] heart without angina pectoris (CMS/HCC) Chronic systolic heart failure (CMS/HCC) Chronic systolic heart failure Ischemic cardiomyopathy (CMS/HCC) Other specified forms of chronic ischemic heart disease Essential hypertension (CMS/HCC) Unspecified essential hypertension Presence of cardiac pacemaker Cardiac pacemaker in situ Ventricular tachycardia (CMS/HCC) Paroxysmal ventricular tachycardia 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) Pure hypercholesterolemia (CMS/HCC) Pure hypercholesterolemia Osteopenia of both hips H/O left mastectomy History of left breast cancer Breast cancer screening by mammogram Essential hypertension (CMS/HCC)- Primary Unspecified essential hypertension Chronic systolic heart failure (CMS/HCC) Chronic systolic heart failure Ischemic cardiomyopathy (CMS/HCC) 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) 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) Hyperlipidemia, unspecified hyperlipidemia type (CMS/HCC) Hyperlipidemia, unspecified hyperlipidemia type (CMS/HCC)- Primary Type 2 diabetes mellitus with stage 3a chronic kidney disease, without long-term current use of insulin (HCC) (CMS/HCC) Essential hypertension (CMS/HCC) Unspecified essential hypertension Chronic systolic heart failure (CMS/HCC) Chronic systolic heart failure 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, without long-term current use of insulin (HCC) (CMS/HCC)- Primary Hyperlipidemia, unspecified hyperlipidemia type (CMS/HCC) Chronic systolic heart failure (CMS/HCC) Chronic systolic heart failure Essential hypertension (CMS/HCC) Unspecified essential hypertension Fall, subsequent encounter Other chronic pain- Primary 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, without long-term current use of insulin (HCC) (CMS/HCC) Hyperlipidemia, unspecified hyperlipidemia type (CMS/HCC) Encounter for Medicare annual wellness exam- Primary Advance directive discussed with patient Encounter for screening for other disorder Screening for alcohol problem Screening for alcoholism Ventricular tachycardia (CMS/HCC) Paroxysmal ventricular tachycardia Primary hypertension (CMS/HCC) Unspecified essential hypertension Ischemic cardiomyopathy (CMS/HCC) 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) Chronic systolic heart failure (CMS/HCC) Chronic systolic heart failure Atherosclerosis of [place] coronary artery of [place] heart without angina pectoris (CMS/HCC) 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) Type 2 diabetes mellitus with stage 3b chronic kidney disease, without long-term current use of insulin (HCC) (CMS/HCC) Mixed hyperlipidemia (CMS/HCC) Mixed hyperlipidemia documented in this encounter [facility]* Diagnosis 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)- Primary Routine general medical examination at health care facility Routine general medical examination at a health care facility Other chronic pain Cardiac LV ejection fraction of 20-34% Atherosclerosis of [place] coronary artery of [place] heart without angina pectoris (CMS/HCC) Chronic systolic heart failure (CMS/HCC) Chronic systolic heart failure Ischemic cardiomyopathy (CMS/HCC) Other specified forms of chronic ischemic heart disease Essential hypertension (CMS/HCC) Unspecified essential hypertension Presence of cardiac pacemaker Cardiac pacemaker in situ Ventricular tachycardia (CMS/HCC) Paroxysmal ventricular tachycardia 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) Pure hypercholesterolemia (CMS/HCC) Pure hypercholesterolemia Osteopenia of both hips H/O left mastectomy History of left breast cancer Breast cancer screening by mammogram Essential hypertension (CMS/HCC)- Primary Unspecified essential hypertension Chronic systolic heart failure (CMS/HCC) Chronic systolic heart failure Ischemic cardiomyopathy (CMS/HCC) 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) 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) Hyperlipidemia, unspecified hyperlipidemia type (CMS/HCC) Hyperlipidemia, unspecified hyperlipidemia type (CMS/HCC)- Primary Type 2 diabetes mellitus with stage 3a chronic kidney disease, without long-term current use of insulin (HCC) (CMS/HCC) Essential hypertension (CMS/HCC) Unspecified essential hypertension Chronic systolic heart failure (CMS/HCC) Chronic systolic heart failure 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, without long-term current use of insulin (HCC) (CMS/HCC)- Primary Hyperlipidemia, unspecified hyperlipidemia type (CMS/HCC) Chronic systolic heart failure (CMS/HCC) Chronic systolic heart failure Essential hypertension (CMS/HCC) Unspecified essential hypertension Fall, subsequent encounter Other chronic pain- Primary 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, without long-term current use of insulin (HCC) (CMS/HCC) Hyperlipidemia, unspecified hyperlipidemia type (CMS/HCC) Chronic pain syndrome- Primary Lumbosacral spondylosis without myelopathy Postural kyphosis of cervicothoracic region Controlled substance agreement signed Medication monitoring encounter Encounter for therapeutic drug monitoring Polypharmacy Issue of repeat prescriptions documented in this encounter [facility] Purpose Family History No Family History Records FoundNo Family History Records FoundNo Family History Records FoundNo Family History Records FoundNo Family History Records FoundNo Family History Records FoundNo Family History Records FoundNo Family History Records Found Advance Directives Date Activated Date Inactivated Comments 05/29/2024 8:16 AM Documents on File Type Date Recorded Patient Bottle Inspector Expl anation Advance Directives and Living Will 07/28/2024 3:34 PM 2010-08-31 living Wi ll Additional Source Comments INFORMATION SOURCE (unrecogn ized section and content) DATE CREATED AUTHOR 09/08/2018 [facility] DATE CREATED AUTHOR AUTHOR'S ORGANIZ ATION 01/30/2019 [facility] DATE CREATED AUTHOR AUTHOR'S ORGANIZ ATION 03/16/2021 [facility] DATE CREATED AUTHOR AUTHOR'S ORGANIZ ATION 02/27/2022 [facility] dical Specialist DATE CREATED AUTHOR AUTHOR'S ORGANIZ ATION 03/08/2023 [facility] DATE CREATED AUTHOR AUTHOR'S ORGANIZ ATION 06/14/2024 [facility] DATE CREATED AUTHOR AUTHOR'S ORGANIZ ATION 07/16/2024 [facility] DATE CREATED AUTHOR AUTHOR'S ORGANIZ ATION 07/30/2024 [facility] dical Specialists EPIC Reason for Visit (unrecogniz ed section and content) Reason Comments Back Pain Reason Comments Annual Exam Reason Comments Pain Care Teams (unrecognized sec tion and content) Senior Electrical Controls Engineer Relationship Specialty Start Date End Date Jose Maddox, SEX THERAPIST-RESTAURANT SHIFT SUPERVISOR [address] [place] [address] PCP - General Nurse Practitioner 06/24/24 Senior Electrical Controls Engineer Relationship Specialty Start Date End Date Chuyita Peters MD [address] [place] [place] [address] PCP - Obie MADSEN 09/30/21 Ray Banda MD [address] [place] [id number] PCP - General Family Medicine 05/07/24 Jose Maddox NP [address] [place] [id number] Nurse Practitioner Family Medicine 05/07/24 Adia Pearson LSW Client Manager Family Medicine 05/26/24 Senior Electrical Controls Engineer Relationship Specialty Start Date End Date Chuyita Peters MD [address] [place] [address] PCP - Obie MADSEN 09/30/21 Ray Banda MD [address] [place] [phone] PCP - General Family Medicine 05/07/24 Jose Maddox NP [address] [place] [address] Nurse Practitioner Family Medicine 05/07/24 Adia Pearson LSW Client Manager Family Medicine 05/26/24 Senior Electrical Controls Engineer Relationship Specialty Start Date End Date Chuyita Peters MD [address] [facility] [place], [place] [phone] PCP - Obie MADSEN 09/30/21 Ray Banda MD [address] [place] [address] PCP - General Family Medicine 05/07/24 Jose Maddox, REBECCA [address] [place] [address] Nurse Practitioner Family Medicine 05/07/24 Adia Pearson [facility] Client Manager Family Medicine 05/26/24 Senior Electrical Controls Engineer Relationship Specialty Start Date End Date Chuyita Peters MD [address] [place] [address] PCP - Obie MADSEN 09/30/21 Elliott Hendrix MD [address] [place] [address] PCP - General Family Medicine 07/16/24 Adilia Larose [facility] Client Manager Family Medicine 07/16/24 Devin Kelsey MD [address] [place] [address] [facility] 07/16/24 Saurav Girard MD [address] [place] [id number] Ophthalmology 07/16/24 Senior Electrical Controls Engineer Relationship Specialty Start Date End Date Chuyita Peters MD [address] [place], [place] [phone] PCP - Obie MADSEN 09/30/21 Elliott Hendrix MD [address] [place] [address] (Fax) PCP - General Family Medicine 07/16/24 Adia Pearson, [facility] Client Manager Family Medicine 05/26/24 07/16/24 Adilia Larose [facility] Client Manager Family Medicine 07/16/24 Devin Kelsey MD [address] [place] [phone] [facility] 07/16/24 Saurav Girard MD [address] [place], [place] [phone] Ophthalmology 07/16/24 Senior Electrical Controls Engineer Relationship Specialty Start Date End Date Chuyita Peters MD [address] [place] [address] PCP - Obie MADSEN 09/30/21 Elliott Hendrix MD [address] [place], [place] [phone] (Fax) PCP - General Family Medicine 07/16/24 Adilia Larose [facility] Client Manager Family Medicine 07/16/24 Devin Kelsey MD [address] [place] [phone] [facility] [employer] [facility] 07/16/24 Saurav Girard MD [address] [place] [address] Ophthalmology 07/16/24 Senior Electrical Controls Engineer Relationship Specialty Start Date End Date Chuyita Peters MD [address] [place] [address] PCP - Obie MADSEN 09/30/21 Elliott Hendrix MD [address] [place] [address] PCP - General Family Medicine 07/16/24 Adilia Larose LSW Client Manager Family Medicine 07/16/24 Devin Kelsey MD [address] [place] [phone] [facility] [employer] [facility] 07/16/24 Saurav Girard MD [address] [place] [address] Ophthalmology 07/16/24 FOR RECORDS PERTAINING TO PATIENTS WHO ARE OR HAVE BEEN ENROLLED IN A CHEMICAL DEPENDENCY/SUBSTANCEABUSE PROGRAM, SOME INFORMATION MAY BE OMITTED. This clinical summary was aggregated from multiple sources. Caution should be exercised in using it in the provision of clinical care. This summary normalizes information from multiple sources, and as a consequence, information in this document may materially change the coding, format and clinical context of patient data. In addition, data may be omitted in some cases. CLINICAL DECISIONS SHOULD BE BASED ON THE PRIMARY CLINICAL RECORDS. [employer] provides no warranty or guarantee of the accuracy or completeness of information in this document.
[2024-08-12 08:47] LABS: Alanine Aminotransferase 28 U/L (14-59); Aspartate Amino Transferase 19 U/L (15-37); Chol HDL Ratio 2.1; Cholesterol 102 mg/dL (<=200); HDL Cholesterol 49 mg/dL (40-60); LDL Cholesterol Calculated 42.6 mg/dL; Triglycerides 52 mg/dL (<=150); VLDL CHOLESTEROL 10.4 mg/dL
== END 2024-08-12 07:41 | disposition home or self-care (01) ==
PROVIDERS: PCP Family Medicine; Visit Provider Internal Medicine Cardiovascular Disease
DX: R07.89 Other chest pain (principal)
CPT/HCPCS: 36415; 80061; 84450; 84460

== ENCOUNTER 2024-09-11 13:34 | Outpatient (OUT) | payer MEDICARE, SELFPAY ==
--- NOTE | 2024-09-11 13:39 | CA_ITS ---
Patient Name: FEDE DE LEON MR#: [id number] : 1935 Exam Date: 09/11/2024 Ordering Doctor: MARIA DEL CARMEN POLANCO ECHOCARDIOGRAM REPORT PROCEDURE: CA ECHO DOPPLER COMPLETE INDICATIONS: Atrial fibrillation/flutter COMPARISON: None. DESCRIPTION: COMPLETE ECHOCARDIOGRAM Real-time transthoracic echocardiography with 2D, M-mode, spectral and color flow Doppler performed. QUALITY: Technical quality was good. LEFT VENTRICLE: Normal chamber size. Borderline left ventricular hypertrophy. Global left ventricular systolic function is mildly to moderately decreased. Abnormal septal motion likely due to pacing. LV EF: Visual estimation of left ventricular ejection fraction is 40-45%. DIASTOLIC: Not adequately assessed due to heart rhythm. ATRIAL SEPTUM: LEFT ATRIUM: Moderate dilatation. RIGHT ATRIUM: Moderate dilatation. RIGHT VENTRICLE: Normal chamber size. Normal right ventricular systolic function. Pacer wire present. TRICUSPID VALVE: Normal mobility and thickness. No stenosis with mild to moderate regurgitation. Moderate pulmonary hypertension. RVSP 52 mmHg MITRAL VALVE: Normal mobility and thickness. No evidence of mitral valve stenosis. Mild mitral annular calcification. Mild to moderate mitral regurgitation. AORTIC VALVE: Normal trileaflet appearance. Mildly calcified aortic valve. Mildly diminished mobility. Doppler velocity suggest mild aortic valve stenosis. DVI 0.5, GALINA 1.7cm2. Mild aortic regurgitation. AORTIC ROOT: Normal diameter and appearance. Normal size ascending aorta measuring 3.5 cm and aortic arch measuring 3.4cm. PULMONIC VALVE: Normal thickness and mobility. No stenosis. Trivial regurgitation. PERICARDIUM: No evidence of pericardial effusion. IVC: Mild dilatation. measuring 2.4 cm with no collapse. PLEURA: CONCLUSION: 1. Normal left ventricular size with mildly to moderately reduced systolic function. LVEF is estimated at 40-45%. 2. Normal right ventricular size and systolic function. 3. Moderate biatrial dilatation. 4. Mild to moderate mitral and tricuspid regurgitation. 5. Mild aortic valve stenosis and regurgitation. 6. Moderately elevated right-sided pressures. RVSP is 52 mmHg. Adult Echocardiography Procedure Report Left Ventricle LVEDD (3.7 - 5.6 cm): 4.66 cm LVESD (2.2 - 4.0 cm): 3.86 cm LVIVS thickness (0.6 - 1.2 cm): 0.98 cm LVPW thickness (0.5 - 1.0 cm): 0.90 cm e': 0.06 m/s E - e': 15.95 LVOT Max Gradient: 2.09 mm[Hg], 1.97 mm[Hg] LVOT Area (cm2): 0.71 m/s Peak Velocity (LVOT): 0.72 m/s, 0.70 m/s Mean Velocity (LVOT): 0.51 m/s LVOT Diameter 2.19 cm Left Ventricular Ejection Fraction: 40-45 % Left Atrium LA Volume Index (2D A2C): 32.47 ml/m2 Left Atrium Systolic Dimension: 3.82 cm Mitral Valve MV E to A Ratio: 1.45 Mitral Valve A-Wave Peak Velocity: 0.68 m/s Mitral Valve E-Wave Peak Velocity: 0.98 m/s Right Ventricle RV Internal Diastolic Dimension: 2.68 cm Aorta AO Root Diam: 2.90 cm Ascending Ao Diam: 3.49 cm Aortic Valve AoV Area (Peak Erasmo): 1.79 cm2, 1.81 cm2 AoV Area (VTI): 1.62 cm2, 1.67 cm2 Deceleration [place]: 1.88 m/s2 Pressure Half-Time: 516.16 ms Peak Velocity(Antegrade Flow): 1.50 m/s Peak Gradient(Antegrade Flow): 8.95 mm[Hg] Mean Velocity(Antegrade Flow): 1.25 m/s Mean Gradient(Antegrade Flow): 6.47 mm[Hg] Velocity Time Integral: 33.90 cm Tricuspid Valve Peak Velocity (Regurgitant Flow): 2.51 m/s, 2.57 m/s, 3.06 m/s Pulmonic Valve Mean Gradient: 1.43 mm[Hg], 2.00 mm[Hg] Mean Velocity: 0.56 m/s, 0.69 m/s Peak Velocity: 0.84 m/s, 0.85 m/s Peak Gradient: 2.60 mm[Hg], 3.09 mm[Hg], 2.87 mm[Hg] Right Atrium Right Atrium Systolic Pressure: 41.84 ml, 41.84 ml Dictated by: Erasmo Cole M.D. on 09/11/2024 at 18:05 Approved by: Erasmo Cole M.D. on 09/11/2024 at 18:10
--- OUTSIDE RECORDS SUMMARY | 2024-09-11 13:47 | XMS_ITS | CCD ---
Author Organization [facility] CliniSyd[facility] Care Team Providers Care Service Bar Cashier Name Role Phone PHYSICIAN, DEFAULT Unavailable Unavailable PHYSICIAN, DEFAULT Unavailable Unavailable FRAN, CHUYITA Unavailable Unavailable PHYSICIAN, DEFAULT Unavailable Unavailable PHYSICIAN, DEFAULT Unavailable Unavailable FRAN, CHUYITA Unavailable Unavailable PHYSICIAN, DEFAULT Unavailable Unavailable PHYSICIAN, DEFAULT Unavailable Unavailable FRAN, CHUYITA Unavailable Unavailable Tuan, Estrellita Gomran Attending Unavailable FRAN, DR SALGUERO Attending Unavailable FRAN, DR SALGUERO Admitting Unavailable FRAN, DR SALGUERO Primary Care Unavailable FRAN, DR SALGUERO Primary Care Unavailable MOUKARBDEVIN LINARES Admitting Unavailable MOUKARBEL, DEVIN Attending Unavailable ZIEBER, DR ERNIE Casey Consulting Unavailable MOUKARBEL, DEVIN Consulting Unavailable FRAN, DR SALGUERO Primary Care Unavailable MOUKARBELDEVIN Admitting Unavailable MOUKARBELDEVIN Consulting Unavailable MOUKADEVIN WALTER Attending Unavailable Maddox MIXING MACHINE TENDER CORK ROD-DESULPHURIZER OPERATOR, Jose Cox Primary Care Pr ovider Fran FITZPATRICK, Chuyita F Unavailable Ray Banda MD Primary Care Provider Varsha BARTENDER MANAGER, Jose Unavailable Adia Reynolds Unavailable TARUN OLIVIER Referring Unavailable FAWWAD, LADD Primary Care Unavailable FAWWAD, LADD Referring Unavailable FAWWAD, LADD Primary Care Unavailable ANNA MELENDEZ Referring Unavailable FAWWAD, LADD Primary Care Unavailable FAWWAD, LADD Referring Unavailable FAWWAD, LADD Primary Care Unavailable MADDOX, JOSE N Referring Unavaila ble MADDOX, JOSE N Primary Care Unavaila SWAPNIL King Attending Unavailable FAWWAD, LADD Referring Unavailable MADDOX, JOSE N Primary Care Unavaila damion MELENDEZ, SEMJOVIIA L Referring Unavailable JOSE MADDOX Primary Care Unavaila damion Larose INSECTICIDE SPRAYER, Adilia Unavailable [phone] Jorge FITZPATRICK, Cassius Willis Primary Care Provider Devin Cole MD Unavailable Era FITZPATRICK, Saurav Mosqueda Unavailable Lili [facility], Adia Unavailable Nickolas WALTON, Suzanna Unavailable Nickolas WALTON, Suzanna Unavailable SHAIKH CORLEY Attending Unavailable SHAIKH CORLEY Attending Unavailable SHAIKH CORLEY Attending Unavailable JOSE MADDOX Attending UnavailMARIELA Ramos Attending Unavailable CASSIUS HENDRIX Attending Unavailable CASSIUS HENDRIX Attending Unavailable DEVIN COLE Attending Unavailable MARIA DEL CARMEN POLANCO Referring Unavailable MARIA DEL CARMEN POLANCO Attending Unavailable MARIA DEL CARMEN POLANCO Referring Unavailable MILAN FLOWERS Attending Unavailable Allergies Allergy Classification Reported Allergen(s) Allergy Type Date of Onset Reaction(s) Facility (2 sources) cefdinir; Translations: [OMNICEF] Drug Allergy 3 [facility] (2 sources) Nitrofurantoin Drug Allergy 3 [facility] (3 sources) cefdinir; Translations: [CEFDINIR] Drug Allergy 4 Shot Stats (18 sources) Nitrofurantoin; Translations: [NITROFURANTOIN] Drug Allergy 3 Other [facility] (16 sources) cefdinir Drug Allergy 3 Other [facility] Work Phone: (1 source) NITROFURANTOIN MONOHYD/M-CRYST; Translations: [NITROFURANTOIN MONOHYD/M-CRYST] Propensity to adverse reactions to drug (disorder) 4 [facility] Medications Current Medications Medication Drug Class(es) Dates Sig (Normalized) Sig (Original) acetaminophen 500 mg oral tablet (17 sources) Start: 11-06-2018 take 1 tablet by [...] / HYDROcodone bitartrate 5 mg oral tablet (11 sources) Opioid Agonist Start: 07-28-2024 End: 08-27-2024 take 1 tablet by mouth twice daily as needed for pain HYDROcodone-acetaminophen ([place]) 5-325 MG tablet Indications: Chronic pain syndrome Take 1 tablet by mouth 2 (two) times a day as needed for moderate pain 60 tablet 07/28/2024 08/27/2024 Active Start: 06-18-2024 End: 07-18-2024 take 1 tablet by mouth once HYDROcodone-acetaminophen ([place]) 5-325 MG tablet Indications: Lumbosacral spondylosis without myelopathy Take 1 tablet by mouth every 12 (twelve) hours if needed for severe pain 60 tablet 06/18/2024 07/18/2024 End: 07-28-2024 take 1 tablet by mouth once daily HYDROcodone-acetaminophen ([place]) 5-325 MG tablet Take 1 tablet by mouth Daily 07/28/2024 Discontinued (Reorder) take 1 tablet by henrietta th twice daily as needed for pain HYDROcodone-acetaminophen ([place]) 5-325 mg per tablet Take 1 tablet by mouth 2 (two) times a day as needed for pain. Active aspirin 81 mg delayed release oral tablet (17 sources) Platelet Aggregation Inhibitor, Nonsteroidal Anti-inflammatory Drug take 1 tablet by mouth once daily aspirin 81 MG EC tablet take 1 tablet by oral route every day Oral Active atorvastatin 40 mg oral tablet (17 sources) HMG-CoA Reductase Inhibitor take 1 tablet by mouth once daily atorvastatin (Lipitor) 40 MG tablet take 1 tablet by oral route every day Oral Active B-complex with vitamin C tablet (1 source) take 1 tablet by mouth in the morning B-complex with vitamin C tablet Take 1 tablet by mouth in the morning. Active Calcium (16 sources) Phosphate Binder, Calcium calcium 150 MG [...] meals. Active carvedilol 3.125 mg oral tablet (15 sources) alpha-Adrenergic [place], beta-Adrenergic [place] Start: End: take 1 tablet by mouth [...] meals. Active cholecalciferol 0.025 mg oral capsule (16 sources) Vitamin D cholecalciferol (Vitamin D-3) 25 MCG (1000 UT) capsule Vitamin D3 1000 Active empagliflozin 10 mg oral tablet (17 sources) Sodium-Glucose Cotransporter 2 Inhibitor take 1 tablet by mouth in the morning empagliflozin (Jardiance) 10 MG Take 1 tablet by mouth in the morning. Active ezetimibe 10 mg oral tablet (16 sources) Dietary Cholesterol Absorption Inhibitor Start: End: take 1 tablet by mouth in the morning ezetimibe (Zetia) 10 MG tablet Take 10 mg by mouth in the morning. 03/13/2024 03/13/2025 Active lisinopril 2.5 mg oral tablet (17 sources) Angiotensin Converting Enzyme Inhibitor take 1 [...] morning. Active spironolactone 25 mg oral tablet (17 sources) Aldosterone Antagonist Start: 018 take 0.5 [...] Sig (Normalized) Sig (Original) Fluad Quadrivalent syringe (8 sources) Start: 07-11-2023 End: 07-16-2024 Fluad Quadrivalent syringe Inject 0.5 mL into the shoulder, thigh, or buttocks 1 (one) time 07/11/2023 07/16/2024 Discontinued (Therapy completed) Start: 07-11-2023 Fluad Quadriva lent syringe Inject 0.5 mL into the shoulder, thigh, or buttocks 1 (one) time 07/11/2023 Active furosemide 40 mg oral tablet (9 sources) Loop Diuretic End: 07-16-2024 furosemide (Lasix) 40 MG tablet 1 (one) time each day at the same time. 07/16/2024 Discontinued (Therapy completed) take 1 tablet by mouth twice blanquita ly furosemide (LASIX) 40 mg tablet Take 1 tablet (40 mg total) by mouth 2 (two) times a day. Active magnesium gluconate 550 mg oral tablet (8 sources) End: 07-16-2024 take 1 tablet by mouth in the morning magnesium 30 MG tablet Take 1 tablet by mouth in the morning. 07/16/2024 Discontinued (Therapy completed) microencapsulated potassium chloride 20 meq extended release oral tablet (9 sources) End: 07-16-2024 potassium chloride CR (KLOR-CON) [...] specified counseling] 07-08-2024 Episodic Cancer of breast (8 sources) History of malignant neoplasm of breast; Translations: [Personal history of malignant neoplasm of breast] Onset: 07-28-2024 07-28-2024 Episodic Cardiac dysrhythmias (20 sources) Ventricular tachycardia; Translations: [Ventricular tachycardia] Onset: 02-11-2023 02-11-2023 Chronic Chronic kidney disease (20 sources) Chronic kidney disease stage 3B ; Translations: [Stage 3b chronic kidney disease (HCC)] Onset: 02-11-2023 02-11-2023 Chronic Chronic kidney disease (4 sources) Chronic kidney disease; Translations: [Chronic kidney disease, stage 3a] Onset: 03-20-2023 Conduction disorders (20 sources) Cardiac pacemaker in situ; Translations: [Presence of cardiac pacemaker] Onset: 04-30-2013 Resolved: 07-16-2024 02-11-2023 Chronic Congestive heart failure; nonhypertensive (20 sources) Acute combined systolic (congestive) and diastolic (congestive) heart failure; Translations: [Chronic systolic (congestive) heart failure] Onset: 04-30-2013 Chronic Coronary atherosclerosis and other heart disease (20 sources) Atherosclerotic heart disease of alutiiq coronary artery without angina pectoris; Translations: [Coronary atherosclerosis] Onset: 01-22-2023 Chronic Diabetes mellitus with complications (20 sources) Disorder of kidney due to diabetes mellitus; Translations: [Type 2 diabetes mellitus with diabetic nephropathy] Onset: 02-11-2023 02-11-2023 Chronic Disorders of lipid metabolism (20 sources) Hyperlipidemia; Translations: [Hyperlipidemia, unspecified] Onset: 02-11-2023 Resolved: 07-16-2024 02-11-2023 Chronic Essential hypertension (19 sources) Essential hypertension; Translations: [Essential (primary) hypertension] Onset: 02-11-2023 02-11-2023 Chronic Heart valve disorders (17 sources) Rheumatic disorders of both mitral and aortic valves; Translations: [Tricuspid valve disorder, non-rheumatic] Onset: 04-30-2013 03-26-2024 Chronic Nonspecific chest pain (2 sources) Other chest pain; Translations: [Other chest pain] Onset: 06-08-2024 Episodic Other acquired deformities (12 sources) Postural kyphosis; 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, cervicothoracic region] Onset: 07-16-2024 07-16-2024 Chronic Other aftercare (7 sources) Drug therapy finding; Translations: [Other group home (current) drug therapy] Onset: 07-28-2024 07-28-2024 Episodic Other aftercare (7 sources) Polypharmacy ; Translations: [Other group home (current) drug therapy] Onset: 08-01-2024 08-01-2024 Episodic Other ear and sense organ disorders (5 sources) Asymmetrical sensorineural hearing loss; Translations: [Sensorineural hearing loss, bilateral] 07-13-2024 Chronic Other nervous system disorders (13 sources) Chronic pain; Translations: [Other chronic pain] Onset: 02-11-2023 02-11-2023 Chronic Other nervous system disorders (7 sources) Chronic pain syndrome; Translations: [Chronic pain syndrome] Onset: 02-11-2023 07-28-2024 Chronic Genet-; endo-; and myocarditis; cardiomyopathy (except that caused by tuberculosis or sexually transmitted disease) (6 sources) Primary cardiomyopathy; Translations: [Cardiomyopathy, unspecified] Onset: 04-30-2013 03-26-2024 Chronic Screening and history of mental health and substance abuse codes (4 sources) Patient encounter status; Translations: [Encounter for screening examination for other mental health and behavioral disorders] 07-08-2024 Episodic Spondylosis; intervertebral disc disorders; other back problems (18 sources) Lumbosacral spondylosis without myelopathy; Translations: [Spondylosis without myelopathy or radiculopathy, lumbosacral region] Onset: 02-11-2023 02-11-2023 Chronic Spondylosis; intervertebral disc disorders; other back problems (4 sources) Pain in thoracic spine; Translations: [Pain in thoracic spine] Onset: 06-24-2024 06-24-2024 Episodic Unclassified (3 sources) LOW BACK PAIN, UNSPECIFIED; Translations: [LOW BACK PAIN, UNSPECIFIED] Onset: 02-14-2023 Unclassified (1 source) Low back pain, unspecified; Translations: [Low back pain, unspecified] Onset: 06-24-2024 Past or Other Problems Problem Classification Problem Date Documented Da te Episodic/Chronic Cancer of breast (16 sources) Primary malignant neoplasm of breast; Translations: [Malignant neoplasm of unspecified site of unspecified female breast] Onset: 11-30-2015 Resolved: 07-28-2024 03-26-2024 Chronic Coronary atherosclerosis and other heart disease (2 sources) Presence of aortocoronary bypass graft; Translations: [Presence of aortocoronary bypass graft] Onset: 03-13-2024 Episodic E Codes: Fall (16 sources) Fall; Translations: [Unspecified fall, initial encounter] Onset: 03-26-2024 Resolved: 07-16-2024 03-26-2024 Episodic Mood disorders (16 sources) Mood disorders Onset: 03-26-2024 03-26-2024 Other screening for suspected conditions (not mental disorders or infectious disease) (18 sources) Depression of left ventricular systolic function; Translations: [Abnormal result of cardiovascular function study, unspecified] Onset: 02-11-2023 02-11-2023 Episodic Residual codes; unclassified (2 sources) Other specified postprocedural states; Translations: [Other specified postprocedural states] Onset: 03-13-2024 Episodic Unclassified (1 source) LOW BACK PAIN, UNSPECIFIED; Translations: [LOW BACK PAIN, UNSPECIFIED] Onset: 02-12-2023 Results Test Name Value Interpretation Reference Range Facility Office Visiton 08-25-2024 Follow-up visit [id number] Daysi De Leon 1935 F Date Provider Department Center 08/25/2024 MARIA DEL CARMEN BENNETT KAYLEE Larson Family History Problem Relation Age of Onset Coronary artery disease Other Family Status - Relation Status Age at Other Level of Service:[address] [place] OFFICE/OUTPATIENT NEW MODERATE MDM 45 MINUTES Normal [facility] ALL LIPID PROFILE (FASTING)o n 08-12-2024 CHOL HDL RATIO 2.1 [facility] Comment on above: 3.3 - 4.4 LOW RISK 4.4 - 7.1 AVERAGE RISK 7.1 - 11.0 MODERATE RISK >11.0 HIGH RISK Cholesterol [Mass/Vol] 102 mg/dL NINF - 200 mg/dL [facility] Cholesterol in HDL [Mass/Vol] 49 mg/dL 40 - 60 mg/dL [facility] Comment on above: > or =60 mg/dl - LOW CARDIOVASCULAR RISK <40 mg/dl - HIGH CARDIOVASCULAR RISK Magnesium [Mass/Vol] 42.6 mg/dL [facility] Comment on above: <100 mg/dl OPTIMAL 100-129 mg/dl NEAR OR ABOVE OPTIMAL 130-159 mg/dl BORDERLINE HIGH 160-189 mg/dl HIGH >190 mg/dl VERY HIGH Magnesium [Mass/Vol] 10.4 mg/dL [facility] Triglyceride [Mass/Vol] 52 mg/dL NINF - 150 mg/dL [facility] 08-12-2024 ALT [Catalytic activity/Vol] 28 U/L 14 - 59 U/L [facility] 08-12-2024 AST [Catalytic activity/Vol] 19 U/L 15 - 37 U/L [facility] No Panel Informationon 08-12 [facility] Drugs of abuse panel Screen (U)on 07-28-2024 [...] Anion gap [Moles/Vol] 9 mmol/L Normal 5-15 [facility] Comment on above: Performed By: #### C MELVIN FONTAINE, 1751-03, 12579-9, 2777-1, 2731-8, 25694-6 #### [facility] ([id number]) [address], [address] [place] [address] Calcium [Mass/Vol] 9.5 mg/dL Normal 8.5-10.5 [facility] Comment on above: Performed By: #### C MELVIN FONTAINE, 1751-03, 70878-5, 2777-1, 2731-8, 21877-3 #### [facility] ([id number]) [address], [address] [place] [address] Chloride [Moles/Vol] 99 mmol/L Normal 98-109 [facility] Comment on above: Performed By: #### C MELVIN FONTAINE, 1750-, 89369-1, 2776-, 2730-8, 03993-0 #### [facility] ([id number]) [address], [address] [place] [address] CO2 [Moles/Vol] 29 mmol/L Normal 22-32 [facility] Comment on above: Performed By: #### C MELVIN FONTAINE, 1751-03, , 2776-09, 2730-8, 10117-0 #### [facility] ([id number]) [address], [address] [place] [address] Creatinine [Mass/Vol] 1.39 mg/dL High 0.40-1.00 [facility] Comment on above: Result Comment: METH OD TRACEABLE TO IDMS STANDARD Performed By: #### C MELVIN FONTAINE, 1751-03, , 2776-09, 8, 25932-4 #### [facility] ([id number]) [address], [address] [place] [address] GFR/1.73 sq M.predicted cornelius g non-blacks MDRD (S/P/Bld) [Vol rate/Area] 37 mL/min/{1.73_m2} Low >59 [facility] Comment on above: Result Comment: Reported eGFR is based on the CKD-EPI 2020 equation that does not use a race coefficient. Performed By: #### C ZHEN, MELVIN, 1751-03, , 2776-09, 8, 13184-1 #### [facility] ([id number]) [address], [address] [place] [address] Glucose [Mass/Vol] 121 mg/dL High 65-99 [facility] Comment on above: Performed By: #### C BC, BMP, 175-7, 06672-5, 2777-1, 2731-8, 38506-6 #### [facility] ([id number]) [address], [address] [place] [address] Potassium [Moles/Vol] 3.9 mmol/L Normal 3.5-5.0 [facility] Comment on above: Performed By: #### C BC, BMP, 1750-7, 28483-9, 2777-1, 2731-8, 64706-8 #### [facility] ([id number]) [address], [address] [place] [address] Sodium [Moles/Vol] 137 mmol/L Normal 134-146 [facility] Comment on above: Performed By: #### C BC, BMP, 1750-7, 22092-1, 2777-1, 2731-8, 68467-0 #### [facility] ([id number]) [address], [address] [place] [address] Urea nitrogen [Mass/Vol] 32 mg/dL High 5-27 [facility] Comment on above: Performed By: #### C BC, BMP, 1750-7, 65378-1, 2777-1, 2731-8, 24430-2 #### [facility] ([id number]) [address], [address] [place] [address] Auditory function testson Right Ear: Mild sloping to profound sensorineural hearing loss above 250 Hz Left Ear: Mild to severe sensorineural hearing loss [facility] BASIC METABOLIC PANLon 06-24 Anion gap [Moles/Vol] 12 mmol/L Normal 5-15 [facility] Comment on above: Performed By: #### 2 4331-1 #### [facility] ([id number]) [address], [address] [place] [address] Calcium [Mass/Vol] 9.4 mg/dL Normal 8.5-10.5 [facility] Comment on above: Performed By: #### 2 4331-1 #### [facility] ([id number]) [address], [address] [place] [address] Chloride [Moles/Vol] 101 mmol/L Normal 98-109 [facility] Comment on above: Performed By: #### 2 4331-1 #### [facility] ([id number]) [address], [address] [place] [address] CO2 [Moles/Vol] 24 mmol/L Normal 22-32 [facility] Comment on above: Performed By: #### 2 4331-1 #### [facility] ([id number]) [address], [address] [place] [address] Creatinine [Mass/Vol] 1.60 mg/dL High 0.40-1.00 [facility] Comment on above: Result Comment: METH OD TRACEABLE TO IDMS STANDARD Performed By: #### 2 4331-1 #### [facility] ([id number]) [address], [address] [place] [address] GFR/1.73 sq M.predicted cornelius g non-blacks MDRD (S/P/Bld) [Vol rate/Area] 31 mL/min/{1.73_m2} Low >59 [facility] Comment on above: Result Comment: Reported eGFR is based on the CKD-EPI 2020 equation that does not use a race coefficient. Performed By: #### 2 4331-1 #### [facility] ([id number]) [address], [address] [place] [address] Glucose [Mass/Vol] 111 mg/dL High 65-99 [facility] Comment on above: Performed By: #### 2 4331-1 #### [facility] ([id number]) [address], [address] [place] [address] Potassium [Moles/Vol] 5.0 mmol/L Normal 3.5-5.0 [facility] Comment on above: Performed By: #### 2 4331-1 #### [facility] ([id number]) [address], [address] [place] [address] Sodium [Moles/Vol] 137 mmol/L Normal 134-146 [facility] Comment on above: Performed By: #### 2 4331-1 #### [facility] ([id number]) [address], [address] [place] [address] Urea nitrogen [Mass/Vol] 43 mg/dL High 5-27 [facility] Comment on above: Performed By: #### 2 4331-1 #### [facility] ([id number]) [address], [address] [place] [address] CBC AND AUTO DIFFon 06-24-20 ABSOLUTE BASOPHIL 0.0 X10E9/L Normal 0.0-0.2 [facility] Comment on above: Performed By: #### 2 4331-1 #### [facility] ([id number]) [address], [address] [place] [address] ABSOLUTE NEUTROPHIL 3.8 X10E9/L Normal 1.5-6.6 [facility] Comment on above: Performed By: #### 2 4331-1 #### [facility] ([id number]) [address], [address] [place] [address] Basophils/100 WBC (Bld) 0.8 % Normal P [facility] Comment on above: Performed By: #### 2 4331-1 #### [facility] ([id number]) [address], [address] [place] [address] Eosinophils (Bld) [#/Vol] 0.2 10*3/uL Normal 0.0-0.4 [facility] Comment on above: Performed By: #### 2 4331-1 #### [facility] ([id number]) [address], [address] [place] [address] Eosinophils/100 WBC (Bld) 2.7 % Normal [facility] Comment on above: Performed By: #### 2 4331-1 #### [facility] ([id number]) [address], [address] [place] [address] Erythrocyte distribution wid th (RBC) [Ratio] 15.5 % High 11.5-15.0 [facility] Comment on above: Performed By: #### 2 4331-1 #### [facility] ([id number]) [address], [address] [place] [address] Hematocrit (Bld) [Volume fraction] 43.0 % Normal 35-47 [facility] Comment on above: Performed By: #### 2 4331-1 #### [facility] ([id number]) [address], [address] [place] [address] Hemoglobin (Bld) [Mass/Vol] 14.4 g/dL Normal 11.7-15. 5 [facility] Comment on above: Performed By: #### 2 4331-1 #### [facility] ([id number]) [address], [address] [place] [address] Lymphocytes (Bld) [#/Vol] 1.4 10*3/uL Normal 1.0-3.5 [facility] Comment on above: Performed By: #### 2 4331-1 #### [facility] ([id number]) [address], [address] [place] [address] Lymphocytes/100 WBC (Bld) 22.9 % Normal [facility] Comment on above: Performed By: #### 2 4331-1 #### [facility] ([id number]) [address], [address] [place] [address] MCH (RBC) [Entitic mass] 31.8 pg Normal 27-34 [facility] Comment on above: Performed By: #### 2 4331-1 #### [facility] ([id number]) [address], [address] [place] [address] MCHC (RBC) [Mass/Vol] 33.6 g/dL Normal 32-36 [facility] Comment on above: Performed By: #### 2 4331-1 #### [facility] ([id number]) [address], [address] [place] [address] MCV (RBC) [Entitic vol] 95 fL Normal 80-100 [facility] Comment on above: Performed By: #### 2 4331-1 #### [facility] ([id number]) [address], [address] [place] [address] Monocytes (Bld) [#/Vol] 0.8 10*3/uL Normal 0-0.9 [facility] Comment on above: Performed By: #### 2 4331-1 #### [facility] ([id number]) [address], [address] [place] [address] Monocytes/100 WBC (Bld) 12.3 % Normal [facility] Comment on above: Performed By: #### 2 4331-1 #### [facility] ([id number]) [address], [address] [place] [address] Neutrophils/100 WBC (Bld) 61.3 % Normal [facility] Comment on above: Performed By: #### 2 4331-1 #### [facility] ([id number]) [address], [address] [place] [address] Platelet mean volume (Bld) [Entitic vol] 9.4 fL Normal 7-12 [facility] Comment on above: Performed By: #### 2 4331-1 #### [facility] ([id number]) [address], [address] [place] [address] Platelets (Bld) [#/Vol] 183 10*3/uL Normal 150-450 [facility] Comment on above: Performed By: #### 2 4331-1 #### [facility] ([id number]) [address], [address] [address] [place] [address] RBC COUNT 4.54 X10E12/L Normal 3.80-5.20 [facility] Comment on above: Performed By: #### 2 4331-1 #### [facility] ([id number]) [address], [address] [address] WBC (Bld) [#/Vol] 6.2 10*3/uL Normal 4.0-11.0 [facility] Comment on above: Performed By: #### 2 4331-1 #### [facility] ([id number]) [address] [place] [address] MAGNESIUMon 06-24-2024 Magnesium [Mass/Vol] 2.8 mg/dL High 1.8-2.6 [facility] Comment on above: Performed By: #### 2 4331-1 #### [facility] ([id number]) [address] [place] [address] MICROALBUMIN - ALBUMIN:CREAT ININE URINE RATIOon 06-24-2024 ALB/CREAT RATIO 16.1 mg/g creat Normal 0.0-30.0 [facility] Comment on above: Performed By: #### 2 4331-1 #### [facility] ([id number]) [address] [address] [place] [address] Albumin DL <= 20 mg/L (U) [Mass/Vol] 1.5 mg/dL Normal 0.0-1.9 [facility] Comment on above: Performed By: #### 2 4331-1 #### [facility] ([id number]) [address], [address] [place] [address] URINE CREAT 93.40 mg/dL Normal [facility] Comment on above: Performed By: #### 2 4331-1 #### [facility] ([id number]) [address], [address] [place] [address] URINALYSISon 06-24-2024 Bilirubin Ql (U) Negative Normal NEG [facility] Comment on above: Performed By: #### 2 4331-1 #### [facility] ([id number]) [address], [address] [place] [address] BLOOD/HGB Trace Abnormal NEG [facility] Comment on above: Performed By: #### 2 4331-1 #### [facility] ([id number]) [address] [place] [address] Color (U) YELLOW Normal YELLOW [facility] Comment on above: Performed By: #### 2 4331-1 #### [facility] ([id number]) [address], [address] [place] [address] Glucose Ql (U) >1000 Abnormal NEG [facility] Comment on above: Performed By: #### 2 4331-1 #### [facility] ([id number]) [address], [address] [place] [address] Ketones Ql (U) Negative Normal NEG [facility] Comment on above: Performed By: #### 2 4331-1 #### [facility] ([id number]) [address], [address] [place] [address] Leukocyte esterase Test stri p Ql (U) Large Abnormal NEG [facility] Comment on above: Result Comment: HIGH CONCENTRATIONS OF GLUCOSE MAY DECREASE THE REACTIVITY OF THE DIPSTICK LEUKOCYTE TEST PAD. Performed By: #### 2 4331-1 #### [facility] ([id number]) [address], [address] [place] [address] MUCOUS PRESENT Abnormal NONE [facility] Comment on above: Performed By: #### 2 4331-1 #### [facility] ([id number]) [address], [address] [place] [address] Nitrite Ql (U) Positive Abnormal NEG [facility] Comment on above: Performed By: #### 2 4331-1 #### [facility] ([id number]) [address], [address] [place] [address] pH (U) 5.5 [pH] Normal 5.0-8.5 [facility] Comment on above: Performed By: #### 2 4331-1 #### [facility] ([id number]) [address], [address] [place] [address] Protein Ql (U) Negative Normal NEG [facility] Comment on above: Performed By: #### 2 4331-1 #### [facility] ([id number]) [address], [address] [place] [address] R.B.CELLS 0 /hpf Normal 0-5 [facility] Comment on above: Performed By: #### 2 4331-1 #### [facility] ([id number]) [address], [address] [place] [address] Specific gravity (U) [Rel density] 1.020 Normal 1.003-1.03 5 [facility] Comment on above: Performed By: #### 2 4331-1 #### [facility] ([id number]) [address], [address] [place] [address] SQUAMOUS EPITHELIUM 1 /hpf Normal 0-5 [facility] Comment on above: Performed By: #### 2 4331-1 #### [facility] ([id number]) [address] [address] [place] [address] TURBIDITY CLEAR Normal CLEAR [facility] Comment on above: Performed By: #### 2 4331-1 #### [facility] ([id number]) [address] [facility] [address] [place] [address] Urobilinogen (U) [Mass/Vol] mg/dL Normal <1.1 [facility] Comment on above: Performed By: #### 2 4331-1 #### [facility] ([id number]) [address] [facility] [address] [place] [address] W.B.CELLS 17 /hpf High 0-5 [facility] Comment on above: Performed By: #### 2 4331-1 #### [facility] ([id number]) [address] [facility] [address] [place] [address] Vitamin D+Metabolites [Mass/ Vol]on 06-24-2024 VITAMIN D 25 HYD TOT 48.1 ng/mL Normal 30-100 [facility] Comment on above: Result Comment: Vitamin D status 25 [place] Vitamin D Deficiency <20 ng/mL Insufficiency 20-29 ng/mL Sufficiency 30-100 ng/mL Toxicity >100 ng/mL NOTE: A pediatric reference range has not been established by the mushroom cultivator of this kit. The [place] [employer] recommends a Vitamin D level of = or >20ng/mL in infants and children. Performed By: #### 2 4331-1 #### [facility] ([id number]) [address] [facility] [address] [place] [address] Office Visiton 06-08-2024 Follow-up visit [id number] Daysi De Leon 1935 F Date Provider Department Center 06/08/2024 MILAN TAPIA [facility] Family History Problem Relation Age of Onset Coronary artery disease Other Family Status - Relation Status Age at Other Level of Service:[address] [place] OFFICE/OUTPATIENT ESTABLISHED MOD MDM 30 MIN Reason for Visit and Comments: Chest Pain [670981] - Patient here because she had recent episode of chest pain. [facility] 36on 04-09-2024 36 LM on daughter Giovanna's VM. Also called patient's phone to make her aware, and LM. [facility] 36on 04-08-2024 36 Good morning, Patients daughter called and states that she took her mother in recently to PCP for wellness check. Patients BP was 90/50.PCP recommended reducing her carvedilol to 3.125 mg. Daughter wanted to get the OK from you before doing so. Please advise. [facility] HGB A1C (GLYCO-HGB)on 2023 Glucose [Mass/Vol] 143 mg/dL Normal [facility] Comment on above: Performed By: #### 2 4331-1 #### [facility] ([id number]) [address] [place] [address] HbA1c (Bld) [Mass fraction] 6.6 % High 4.4-5.6 [facility] Comment on above: Result Comment: NOTE ADA Guidelines Result HgbA1c Normal : less than 5.7 % Prediabetes : 5.7 % to 6.4 % Diabetes : > 6.4 % Use with caution in patients with abnormal hemoglobin variants as the half-life of red blood cells and in vivo glycation rates are affected. Performed By: #### 2 4331-1 #### [facility] ([id number]) [address] [place] [address] Lipid 1996 panelon Cholesterol [Mass/Vol] 101 mg/dL Low 150-200 [facility] Comment on above: Performed By: #### 2 4331-1 #### [facility] ([id number]) [address] [facility] [place] [address] Cholesterol in HDL [Mass/Vol] 45 mg/dL Normal >39 [facility] Comment on above: Result Comment: HDL <40 mg/dL - High Risk HDL > or = 40mg/dL- Desirable HDL >60 mg/dL - Negative Risk Performed By: #### 2 4331-1 #### [facility] ([id number]) [address], [address] [place] [address] Cholesterol in LDL [Mass/Vol] 44 mg/dL Normal <130 [facility] Comment on above: Result Comment: LDL <100 mg/dL - Desirable LDL >160 mg/dL - High Risk Performed By: #### 2 4331-1 #### [facility] ([id number]) [address], [address] [place] [address] Cholesterol in VLDL [Mass/Vol] 12 mg/dL Normal 0-30 [facility] Comment on above: Performed By: #### 2 4331-1 #### [facility] ([id number]) [address], [address] [place] [address] CHOLESTEROL:HDL 2.2 Normal 1.0-5.0 [facility] Comment on above: Performed By: #### 2 4331-1 #### [facility] ([id number]) [address], [address] [place] [address] Triglyceride [Mass/Vol] 61 mg/dL Normal 27-150 [facility] Comment on above: Performed By: #### 2 4331-1 #### [facility] ([id number]) [address], [address] [place] [address] Office Visiton 03-13-2024 Follow-up visit [id number] Daysi De Leon Yadira 1935 F Date Provider Department Center 03/13/2024 DEVIN GARCIA Family History Problem Relation Age of Onset Coronary artery disease Other Family Status - Relation Status Age at Other Level of Service:[address] [place] OFFICE/OUTPATIENT ESTABLISHED MOD MDM 30 MIN Normal [facility] Orders Onlyon 02-18-2024 Orders Only [id number] Daysi De Leon 1935 F Date Provider Department Center 02/18/2024 DEVIN GARCIA Family History Problem Relation Age of Onset Coronary artery disease Other Family Status - Relation Status Age at Other Normal [facility] BASIC METABOLIC PANLon 01-13 Anion gap [Moles/Vol] 9 mmol/L Normal 5-15 [facility] Comment on above: Performed By: #### 2 4331-1 #### [facility] ([id number]) [address], [address] [place] [address] Calcium [Mass/Vol] 8.7 mg/dL Normal 8.5-10.5 [facility] Comment on above: Performed By: #### 2 4331-1 #### [facility] ([id number]) [address], [address] [place] [address] Chloride [Moles/Vol] 106 mmol/L Normal 98-109 [facility] Comment on above: Performed By: #### 2 4331-1 #### [facility] ([id number]) [address], [address] [place] [address] CO2 [Moles/Vol] 24 mmol/L Normal 22-32 [facility] Comment on above: Performed By: #### 2 4331-1 #### [facility] ([id number]) [address], [address] [place] [address] Creatinine [Mass/Vol] 1.24 mg/dL High 0.40-1.00 [facility] Comment on above: Result Comment: METH OD TRACEABLE TO IDMS STANDARD Performed By: #### 2 4331-1 #### [facility] ([id number]) [address], [address] [place] [address] GFR/1.73 sq M.predicted cornelius g non-blacks MDRD (S/P/Bld) [Vol rate/Area] 42 mL/min/{1.73_m2} Low >59 [facility] Comment on above: Result Comment: Reported eGFR is based on the CKD-EPI 2020 equation that does not use a race coefficient. Performed By: #### 2 4331-1 #### [facility] ([id number]) [address], [address] [place] [address] Glucose [Mass/Vol] 100 mg/dL High 65-99 [facility] Comment on above: Performed By: #### 2 4331-1 #### [facility] ([id number]) [address], [address] [place] [address] Potassium [Moles/Vol] 4.8 mmol/L Normal 3.5-5.0 [facility] Comment on above: Performed By: #### 2 4331-1 #### [facility] ([id number]) [address], [address] [place] [address] Sodium [Moles/Vol] 139 mmol/L Normal 134-146 [facility] Comment on above: Performed By: #### 2 4331-1 #### [facility] ([id number]) [address], [address] [place] [address] Urea nitrogen [Mass/Vol] 33 mg/dL High 5-27 [facility] Comment on above: Performed By: #### 2 4331-1 #### [facility] ([id number]) [address], [address] [place] [address] ALBUMINon 12-17-2023 Albumin [Mass/Vol] 4.3 g/dL Normal 3.2-5.3 [facility] Comment on above: Performed By: #### C BC, BMP, 175-7, 70137-5, 2777-1, 2731-8, 36220-9 #### [facility] ([id number]) [address], [address] [place] [address] BASIC METABOLIC PANLon 12-16 Anion gap [Moles/Vol] 11 mmol/L Normal 5-15 [facility] Comment on above: Performed By: #### C BC, BMP, 1750-7, 54733-6, 2777-1, 2731-8, 62621-8 #### [facility] ([id number]) [address], [address] [place] [address] Calcium [Mass/Vol] 9.7 mg/dL Normal 8.5-10.5 [facility] Comment on above: Performed By: #### C BC, BMP, 1750-7, 66138-3, 2777-1, 2731-8, 87598-9 #### [facility] ([id number]) [address], [address] [place] [address] Chloride [Moles/Vol] 105 mmol/L Normal 98-109 [facility] Comment on above: Performed By: #### Renetta BC, BMP, 1750-7, 76129-5, 2777-1, 2731-8, 49040-5 #### [facility] ([id number]) [address], [address] [place] [address] CO2 [Moles/Vol] 23 mmol/L Normal 22-32 [facility] Comment on above: Performed By: #### Renetta BC, BMP, 175-7, 02946-2, 2777-1, 2731-8, 73323-5 #### [facility] ([id number]) [address] [place] [address] Creatinine [Mass/Vol] 1.35 mg/dL High 0.40-1.00 [facility] Comment on above: Result Comment: METH OD TRACEABLE TO IDMS STANDARD Performed By: #### C MELVIN FONTAINE, 1751-03, 78638-6, 2776-1, 2731-8, 47848-8 #### [facility] ([id number]) [address], [address] [place] [address] GFR/1.73 sq M.predicted cornelius g non-blacks MDRD (S/P/Bld) [Vol rate/Area] 38 mL/min/{1.73_m2} Low >59 [facility] Comment on above: Result Comment: Reported eGFR is based on the CKD-EPI 2020 equation that does not use a race coefficient. Performed By: #### C MELVIN FONTAINE, 1751-03, , 2776-, 2730-8, 67299-2 #### [facility] ([id number]) [address], [address] [place] [address] Glucose [Mass/Vol] 106 mg/dL High 65-99 [facility] Comment on above: Performed By: #### C MELVIN FONTAINE, 1751-03, 00736-0, 2776-1, 273-8, 63160-5 #### [facility] ([id number]) [address], [facility] [address] [place] [address] Potassium [Moles/Vol] 4.6 mmol/L Normal 3.5-5.0 [facility] Comment on above: Performed By: #### C ZHEN, MELVIN, 7, 55133-8, 2776-1, 273-8, 06240-4 #### [facility] ([id number]) [address], [address] [place] [address] Sodium [Moles/Vol] 139 mmol/L Normal 134-146 [facility] Comment on above: Performed By: #### C MELVIN FONTAINE, 1751-03, 22146-2, 2777-1, 2731-8, 22552-5 #### [facility] ([id number]) [address], [address] [place] [address] Urea nitrogen [Mass/Vol] 39 mg/dL High 5-27 [facility] Comment on above: Performed By: #### C BC, BMP, 1750-, 20081-7, 2777-1, 2731-8, 83144-3 #### [facility] ([id number]) [address], [facility] [address] [place] [address] COMPLETE BLOOD COUNTon 12-16 Erythrocyte distribution wid th (RBC) [Ratio] 15.0 % Normal 11.5-15.0 [facility] Comment on above: Performed By: #### C BC, BMP, 1751-03, 52260-4, 7-1, 2731-8, 01467-1 #### [facility] ([id number]) [address], [address] [place] [address] Hematocrit (Bld) [Volume fraction] 43.0 % Normal 35-47 [facility] Comment on above: Performed By: #### C BC, BMP, 1751-03, 46616-8, 7-1, 2731-8, 50949-8 #### [facility] ([id number]) [address], [address] [place] [address] Hemoglobin (Bld) [Mass/Vol] 14.3 g/dL Normal 11.7-15. 5 [facility] Comment on above: Performed By: #### C BC, BMP, 1750-, 55523-8, 7-1, 2731-8, 03814-3 #### [facility] ([id number]) [address], [address] [place] [address] MCH (RBC) [Entitic mass] 31.4 pg Normal 27-34 [facility] Comment on above: Performed By: #### C BC, BMP, 1750-7, 96484-7, 2777-1, 2731-8, 08048-7 #### [facility] ([id number]) [address], [address] [place] [address] MCHC (RBC) [Mass/Vol] 33.4 g/dL Normal 32-36 [facility] Comment on above: Performed By: #### C BC, BMP, 1750-7, 98331-2, 2777-1, 2731-8, 24819-6 #### [facility] ([id number]) [address], [address] [place] [address] MCV (RBC) [Entitic vol] 94 fL Normal 80-100 [facility] Comment on above: Performed By: #### Renetta FONTAINE, BMP, 1750-, 53399-9, 7-1, 2731-8, 28090-0 #### [facility] ([id number]) [address], [address] [place] [address] Platelet mean volume (Bld) [Entitic vol] 9.7 fL Normal 7-12 [facility] Comment on above: Performed By: #### Renetta FONTAINE, BMP, 1750-, 87205-1, 7-1, 2731-8, 26357-4 #### [facility] ([id number]) [address], [address] [place] [address] Platelets (Bld) [#/Vol] 202 10*3/uL Normal 150-450 [facility] Comment on above: Performed By: #### Renetta BC, BMP, 1750-7, 84186-5, 2777-1, 2731-8, 14099-1 #### [facility] ([id number]) [address], [address] [place] [address] RBC COUNT 4.57 X10E12/L Normal 3.80-5.20 [facility] Comment on above: Performed By: #### Renetta FONTAINE, BMP, 1750-7, 37897-9, 2777-1, 2731-8, 64672-6 #### [facility] ([id number]) [address], [address] [place] [address] WBC (Bld) [#/Vol] 5.9 10*3/uL Normal 4.0-11.0 [facility] Comment on above: Performed By: #### C BC, BMP, 1751-03, 34186-6, 2776-1, 2731-8, 93786-0 #### [facility] ([id number]) [address] [place] [address] MAGNESIUMon 12-17-2023 Magnesium [Mass/Vol] 2.7 mg/dL High 1.8-2.6 [facility] Comment on above: Performed By: #### C BC, BMP, 1751-03, , 2776-, 273-8, 34313-3 #### [facility] ([id number]) [address] [place] [address] MICROALBUMIN - ALBUMIN:CREAT ININE URINE RATIOon 12-17-2023 ALB/CREAT RATIO 27.8 mg/g creat Normal 0.0-30.0 [facility] Comment on above: Performed By: #### 2 4331-1 #### [facility] ([id number]) [address] [place] [address] Albumin DL <= 20 mg/L (U) [Mass/Vol] 2.8 mg/dL High 0.0-1.9 [facility] Comment on above: Performed By: #### 2 4331-1 #### [facility] ([id number]) [address], [address] [place] [address] URINE CREAT 100.73 mg/dL Normal [facility] Comment on above: Performed By: #### 2 4331-1 #### [facility] ([id number]) [address], [address] [place] [address] PHOSPHORUSon 12-17-2023 Phosphate [Mass/Vol] 3.4 mg/dL Normal 2.4-4.9 [facility] Comment on above: Performed By: #### C BC, BMP, 1751-7, 00043-8, 2777-1, 2731-8, 60055-3 #### [facility] ([id number]) [address] [facility], [address] [place] [address] Parathyrin.intact [Mass/Vol] on 12-17-2023 PTH INTACT 66 pg/mL Normal [facility] Comment on above: Performed By: #### C BC, BMP, 1750-7, 29845-6, 2777-1, 2731-8, 71664-1 #### [facility] ([id number]) [address] [facility], [address] [place] [address] URINALYSISon 12-17-2023 Bilirubin Ql (U) Negative Normal NEG [facility] Comment on above: Performed By: #### SAULO Villa #### [facility] ([id number]) [address] [facility] [place] [address] BLOOD/HGB Negative Normal NEG [facility] Comment on above: Performed By: #### SAULO Villa #### [facility] ([id number]) [address] [facility], [address] [place] [address] Color (U) YELLOW Normal YELLOW [facility] Comment on above: Performed By: #### SAULO Villa #### [facility] ([id number]) [address] [facility], [address] [place] [address] Glucose Ql (U) >1000 Abnormal NEG [facility] Comment on above: Performed By: #### SAULO Villa #### [facility] ([id number]) [address] [place] [address] Ketones Ql (U) Negative Normal NEG [facility] Comment on above: Performed By: #### SAULO Villa #### [facility] ([id number]) [address] [place] [address] Leukocyte esterase Test stri p Ql (U) Large Abnormal NEG [facility] Comment on above: Result Comment: HIGH CONCENTRATIONS OF GLUCOSE MAY DECREASE THE REACTIVITY OF THE DIPSTICK LEUKOCYTE TEST PAD. Performed By: #### SAULO Villa #### [facility] ([id number]) [address] [place] [address] Nitrite Ql (U) Negative Normal NEG [facility] Comment on above: Performed By: #### SAULO Villa #### [facility] ([id number]) [address], [address] [place] [address] pH (U) 5.5 [pH] Normal 5.0-8.5 [facility] Comment on above: Performed By: #### SAULO Villa #### [facility] ([id number]) [address] [place] [address] Protein Ql (U) Negative Normal NEG [facility] Comment on above: Performed By: #### SAULO Villa #### [facility] ([id number]) [address] [place] [address] R.B.CELLS 2 /hpf Normal 0-5 [facility] Comment on above: Performed By: #### SAULO Villa #### [facility] ([id number]) [address] [place] [address] RENAL EPITHELIUM <1 High 0 [facility] Comment on above: Performed By: #### SAULO Villa #### [facility] ([id number]) [address] [place] [address] Specific gravity (U) [Rel density] 1.019 Normal 1.003-1.03 5 [facility] Comment on above: Performed By: #### SAULO Villa #### [facility] ([id number]) [address] [place] [address] SQUAMOUS EPITHELIUM 8 /hpf High 0-5 [facility] Comment on above: Performed By: #### SAULO Villa #### [facility] ([id number]) [address] [place] [address] TRANSITIONAL EPITH 1 /hpf High 0 [facility] Comment on above: Performed By: #### SAULO Villa #### [facility] ([id number]) [address], [facility] [address] [place] [address] TURBIDITY HAZY Abnormal CLEAR [facility] Comment on above: Performed By: #### SAULO Villa #### [facility] ([id number]) [address] [place] [address] Urinalysis dipstick W Reflex Microscopic panel (U) URINE RECEIVED WITHOUT PRESERVATIVE-DELAY S IN TRANSPORT MAY AFFECT RESULTS.INTERPRET WITH CAUTION AND CLINICAL CORRELATION IS RECOMMENDED. Normal [facility] Comment on above: Performed By: #### SAULO Villa #### [facility] ([id number]) [address] [place] [address] Urobilinogen (U) [Mass/Vol] mg/dL Normal <1.1 [facility] Comment on above: Performed By: #### SAULO Villa #### [facility] ([id number]) [address] [place] [address] W.B.CELLS 137 /hpf High 0-5 [facility] Comment on above: Performed By: #### U SAULO May #### [facility] ([id number]) [address] [facility] [place] [address] WBC CLUMPS FEW Abnormal NONE [facility] Comment on above: Performed By: #### SAULO Villa #### [facility] ([id number]) [address], [address] [place] [address] Vitamin D+Metabolites [Mass/ Vol]on 12-17-2023 VITAMIN D 25 HYD TOT 60.0 ng/mL Normal 30-100 [facility] Comment on above: Result Comment: Vitamin D status 25 [place] Vitamin D Deficiency <20 ng/mL Insufficiency 20-29 ng/mL Sufficiency 30-100 ng/mL Toxicity >100 ng/mL NOTE: A pediatric reference range has not been established by the mushroom cultivator of this kit. The [place] [employer] recommends a Vitamin D level of = or >20ng/mL in infants and children. Performed By: #### C BC, [facility], 1751-7, 55208-7, 2777-1, 2731-8, 36535-7 #### [facility] ([id number]) [address], [address] [place] [address] 36on 11-29-2023 36 Spoke with patient and she is agreeable to muga scan at [facility]. Order faxed. Normal [facility] 36on 11-14-2023 36 Regarding echo performed on 08/30/2023: MD Katalina Fields MA Echo showed improved ejection fraction however it was difficult to assess. I want her to get a MUGA scan [RNA scan for LVEF]. I think this has to be done at [place]. [facility] does do muga scans. Is it ok that she have it here? Please advise. Thanks. [facility] [facility] A1C (GLYCO-HGB)on 2022 Glucose [Mass/Vol] 140 mg/dL Normal [facility] Comment on above: Performed By: #### 2 4331-1 #### [facility] ([id number]) [address], [address] [place] [address] HbA1c (Bld) [Mass fraction] 6.5 % High 4.4-5.6 [facility] Comment on above: Result Comment: NOTE ADA Guidelines Result HgbA1c Normal : less than 5.7 % Prediabetes : 5.7 % to 6.4 % Diabetes : > 6.4 % Use with caution in patients with abnormal hemoglobin variants as the half-life of red blood cells and in vivo glycation rates are affected. Performed By: #### 2 4331-1 #### [facility] ([id number]) [address], [address] [place] [address] Lipid 1996 panelon 3 Cholesterol [Mass/Vol] 152 mg/dL Normal 150-200 [facility] Comment on above: Performed By: #### 2 4331-1 #### [facility] ([id number]) [address], [address] [place] [address] Cholesterol in HDL [Mass/Vol] 46 mg/dL Normal >39 [facility] Comment on above: Result Comment: HDL <40 mg/dL - High Risk HDL > or = 40mg/dL- Desirable HDL >60 mg/dL - Negative Risk Performed By: #### 2 4331-1 #### [facility] ([id number]) [address], [address] [address] Cholesterol in LDL [Mass/Vol] 88 mg/dL Normal <130 [facility] Comment on above: Result Comment: LDL <100 mg/dL - Desirable LDL >160 mg/dL - High Risk Performed By: #### 2 4331-1 #### [facility] ([id number]) [address], [address] [place] [address] Cholesterol in VLDL [Mass/Vol] 18 mg/dL Normal 0-30 [facility] Comment on above: Performed By: #### 2 4331-1 #### [facility] ([id number]) [address], [address] [place] [address] CHOLESTEROL:HDL 3.3 Normal 1.0-5.0 [facility] Comment on above: Performed By: #### 2 4331-1 #### [facility] ([id number]) [address], [address] [place] [address] Triglyceride [Mass/Vol] 88 mg/dL Normal 27-150 P [facility] Comment on above: Performed By: #### 2 4331-1 #### [facility] ([id number]) [address], [address] [place] [address] NM STRESS/REST MULTIon 01-22 NM STRESS/REST MULTI Patient: DAYSI DE LEON Exam Date: 01/22/2023 : 1935 Gender:F Ordering : DR DEVIN COLE M.D. Admission #: [id number] Family : Order #: [id number] CLICK HERE TO VIEW EXAM RADIOLOGY REPORT [...] STUDY: Excellent. PERFUSION DEFECT: LOCATION: Apical anterior. [place]. SIZE: Small (1-2 segments). SEVERITY: Severe. TYPE: Persistent. WALL MOTION: Akinesis: Dyskinesis: [place]. LV SIZE: Normal. 73 mL. TID / [...] Mobley M.D. on 01/22/2023 at 14:48 Normal [facility] ECHOCARDIO M/2D COMPLETEon 0 01-04-2023 ECHOCARDIO M/2D COMPLETE Patient: DAYSI DE LEON Exam Date: 01/04/2023 : 1935 Gender:F Ordering : DR DEVIN COLE M.D. Admission #: [id number] Family : Order #: [id number] CLICK HERE TO VIEW EXAM ECHOCARDIOGRAM REPORT [...] 2.20 mm[Hg] Right Atrium Dictated by: Devin Cole M.D. on 01/04/2023 at 15:36 Approved by: Devin Cole M.D. on 01/04/2023 at 16:02 Normal [facility] XR Bone Density (DEXA)on XR Bone Density (DEXA) [facility] ltAge-Matched Total(g/cm2)(%)T-S core(%)Z-Score Femurs.79500-6.611 9+1.0 Impression: The mean BMD and corresponding T-score indicated above indicate Low Bone Mass (Osteopenia) and places the patient at a mild to moderate increased risk for fracture. There may be a future risk of developing osteoporosis. Recommend follow-up exam in 1 year, sooner as clinically necessary. [facility] ltAge-Matched Total(g/cm2)(%)T-S core(%)Z-Score L1-L41.92397-7.413 7+2.5 Impression: The mean BMD and corresponding [...] by Jack Lion on 02/27/2022 1033 Normal [facility] Microalbumin (with Creat)on 02-15-2022 mALB <1.2 Low [facility] Comment on above: Result Comment: Unab le to calculate mALB/Crea ratio, mALB is <1.2 mg/dL mALB reference range not established. Performed By: #### m ALBC #### [facility] [address] [place], [place] [id number] UCREA 29 mg/dL Normal 28-217 [facility] Mr Teacher Comment on above: Performed By: #### m ALBC #### [facility] [address] [place], [place] [id number] US Renal/Bladderon 2 US Renal/Bladder FINDINGS: Right Kidney7.4 x 4.5 x 4.0 cm Left Nourxh48.8 x 5.1 x 5.7 cm Full bladder [...] by Jack Lion on 12/04/2021 0937 Normal [facility] Coding Summaryon 03-15-2021 Coding Summary HTMLBase 64 PmcgicqaRKh9jDg+PG hlYWQ+GU2MKEYeK77b xVHlvR2SB4fWUZ1IIR BUSHDRZZ3FCO9lnKC7 KEtjF3BubnDr MkaadJNrFE90WOw3NZ N1iNzjLRothX7xrBNt F6t4MfZgIL29rA30QU qmIBJwIeK0ScEypwad bWFy P1cnTwMuvAXpMlh+PH RhYmxlIHdpZHRoPScx RXPyHaBouCacRP9aIi 9yZGVyLWNvbGxhcHNl OiBj w7llEPLfWVkaGN2kbO tbC4DmfBR6JMSmd6w8 Dm03fFP+LDVvDAA5pM tpUQowj253GdWci9bh IDM3 oGXpJAdsPSQ6P73iw8 Y3NIZfUXVqWXB6wTR8 bP3phYbhxjqiT0WgsD BpOuU6NUR9yDBtkO5a bGln yqyjiP6yOxc+Q09ESU 3GNGVKCL3PKxe2M9Ge PjwvdHI+HE23EEQwOE 97aLWmdJVaa6hxtNi5 JzEw KKTbFDH7xYhmTUztr3 VeDLCxL81xwWIlp4O1 IGNvbGxhcHNlOyBlbX C3jL2fPFjhrvuxe4on dzsn Zlwgw8gqpu21cB08S3 3gORsgULQsSCH2LCGx XGSucUunsn2xzU8aMd 8+PZmuq9btx4ofpEs6 IjIw AABwadXzkYlyQMM7n3 HyCh55V7QuhTwll8Qz Iwt0qz30jAFzp5J0kN A0NRtvHQGmcW5hBThu ZnQ6 GNGzYjFkcL94yROaXE wcXu2cwPkbvBplWD3u FGAvngdgSEUtlC0uGZ QvpULhrLhjID2aETSk bjtm a113QwTgGGI8FOIpaR OrE3AstD5eLuUsGWRn ONAgB5UiqFPrULvgA3 11RCguHhM2RRDuozNl Y2Fs QVHudBxmGrF3h1D3Vq 1Hb5LhdtenBQS8LNbm PPD6MmZ4MnYaXtL1P7 YrDas5CVEojEkeLA4f J3Bh HEIdmcmxifaowWQ7ZY RnDTGvxJ06uKKrLXkh Me8im6Z1n125VTZxAC VhxP19Qg9ojCcyXLNh dCBU jZ4gobiah1bgyxkhKm QtLLWhJPe5RSq5XMZb sZkeOcRrRMI7OfS1ZA Z5gWSwqZ7hmKaethrq dG9w Oyc+I85tiR1kCGL6KO C3vqlmXSZicbUqHO75 NX63A8QbOksngREvvA U+OICzqjZegKsqEJ4o YmFj u7dgn4SkEFyvB8HxWX JjPBjzNiz6CHPlSMT7 eGR4bD0xGPNoLNppn8 N1oBL1D5UlqcIlgq6e b2xs LLGeJCaqG51tcFKzh5 F8HRCbrRC7WZTinLzj YdGlbO20Man+PGNvbG vtt7OuTehzo9bec6qm dGg9 IjMwJSIgdmFsaWduPS M6g5ImWx93K73yVBry ZHRoPSIxNSUiIHZhbG vfjc9xoJ8yGp1+PGNv bCB3 hAK5zF3qLEHkGlJ8HG xxF238RzPcaSZrWlxq m9uut7wctBa9GmPpRR CyqwDpjAufHZA9l1Yx Lz48 M40eWZiiZEPqMORfFO KmCEOxeGgxeh3idC8x Ii8+GL9hb7csjy62xE 48dHI+TFXzJOK2xCmi PSdw HIUbsV0lAYixNhW9OS OuGgHlpE73qUFyLVrh Qv0mnXiirEtxFT8nZA Uugvgum500ApEar2cx IDEw aKBoWBshNTX5V20wt2 H7ESGlSAYwMHZ4hCQ8 dK8yfMojukdtoCRpwV sgdmVydGljYWwtYWxp Z246 IHRvcDsnPlBhdGllbn DfJwFcYDm1P6BgUou5 MVLkoSqeKN4yvREoMR piBr8ndWxexFvfPU4c NTBp qdaup765IbVmf9kyEL NufPPsPBliOMK9A23g e3C1PJMyXGSbLIC6vA C8xW2svDcxkggkoENe dDsg dmVydGljYWwtYWxpZ2 46IHRvcDsnPkJpcnRo ZIZvkSH3NS69CP74uO Bcp7S6tZI0F9UoYVBg bmct yquzyRE7NPImIKKapC 72Bz2zqRplYo0qXPFk MPZ9NHPqkOMvT0MedK 2dXeJdYEObVCLnI2Kn eHQt DGjzS297RCodPpB9HF NajmHcW8JwQEKweBoe VyJ4c3S2Cx1ZA4B7QA 09SS27yBFno7C4pMO3 J3Bh GWEgqtgezptlwNZ2XH QnNGGpyL87Ew7drYli Me4yJHBsMWU3TAKcxS EnZ5NceC5wQgWbYMHa MDAw G4DrsKTnKOtfR804RI aiWpE4HTHvgeIzN1Hi BRGitLjiQfS6k4L2Ta 2PKAv8QM38OB37tSKj c3R5 lTW1A3OaASJdzehvjn banAU6MNRzYCUllQ28 Gh4zfYwzRk9kTZXcDY P7UDYltGJvF6ZytE3q OiAj WUDuDYXoA6CabTErFZ kcF922VEdyFyN5UUUo gmCrD9IgHDWhqNsjTb U4u6R7Ee0FXJCvRP65 IFR5 oEZ7AX27TJ84M2PdWn wvdGFibGU+PHRhYmxl IHdpZHRoPScxMDAlJy IduDfmKY3hKa0fUYZc LWNv eEjgzIBgMnPic4raGW GpPBbcWK0faWyxA8Ve wMQ2AELbr1d4Hq87Z2 8aE0IekJP+PGNvbCB3 aWR0 sA3fKiDvHbS3EMqkH9 49VgOnpCFsQyobv5md p7svrVb2EnH5EHPgjl YwqZucDCC5p6OkPx54 Y29s IHdpZHRoPSIxNSUiIH SyrGxpac2bfF3uVc2+ QWDfbDH2cVX2cV5cAb DvOdU1XPerH282McBj cCIv Wtwet4vge7tykRk7Gi IwJSIgdmFsaWduPSJ0 d8YgGs94U9HdwOppn6 BoPef1zb90bSMsh6X2 bGU9 B6ZpMYFytnklgWKhcT ffHW9jGYNsvxwnUCMd gS0iXYPmK1r6MwTsNp P1FVxkH7RqnrW4DKLk cHQg TAtoLNC7V29fw3Y2ZZ MuUUUlYOZ6bND8bP9y bGlnbjogbGVmdDsgdm TouEjmEDktVIpaB841 IHRv oRhmTGPvlF8uYUKwxC XwsPdrNL6gGEIpiuii CqTERL1VCSqgTeJPFV XWAY60JT44pNWfr5D5 bGU9 Z1SpUIDleguyfotjjD J0QLZjLCPjsG74cTNy LRocOf5yf6L9g798RE ZyXKLsdW53St0xeQjn MTBw yYIInY2rkvevh4mzai ctSsZgRVXpJMg5ANi1 ANWjlRepTtVaZLZ2Jj O2BEZ0uIFicI6msWei bjog dH9iIkt+MDMvMjMvMT kzNzwvdGQ+PHRkIHN0 lYpgXEyaKEJftD4xWZ YlN8w1IeGfMbW9JVku O3Bh DFXudlxsGw93iD8cWu DuWmM0DMltX2YhomJ7 AEFnrLQmXNwpCOB4M0 6zw8T2AOQmZDPcDYN8 dGV4 aZ5dmUnnebrdrUPpfK sgdmVydGljYWwtYWxp D395UAMtrTtzEcd4KF clEKAvQD90HG51jVIx c3R5 dMW0J3DiDWFqbhfqsc esgHH0DUAyXYOyiB17 nCAmYToqGy0xm9Y1o0 50AQZyBXHpzT87Lc6n dDog RYEhoDYPiR8emllwd8 xvcjogIzAwMDAwMDt0 GUz1OXQgfOmsBmKlLY Z5ZtU6RUK3mRBkjP0y bGln jbwqfV7sQfm+RkVNQU qMAR34LB78uHGqh9N7 zQD6P4SqAIFejypvji iiyPG4ASYrTCZoyA91 cGFk NFzyMu4cv0J5j697OD UbZAGfaA60Nr7gtIqs AKSsdMAUpF7ptqxcv5 xvcjogIzAwMDAwMDt0 ZXh0 AUJjjFrdSsJoPKB2Nx C4KNB4jBIpaJ2ycRrk jfdtjA9wGkx+UmVjdX BaeZ4jIZ03lTZdfKfe bnQ8 X1QsQsejjDF+PC90YW ZrDB59yWPhkZUmm3ob rOe3PoGoFSUpZOB7uU xbFJssj8SrTFNoJ34h bGFw q5N7JLOrnAhmsFUqLf JmuIL8rD6tMXwumelp o3ylnjinZhzrt2hyce 89dW80V90uPBxyKMYi PSIz VHLjCHQlwAwoyk9gsY 9wIi8+VWYycSD2mTU3 fO9rAqHxFkI0DMxnR2 32JmKpjYDsZtgzh7wn d2lk mUv5EeNjGLQucpKojE smPNZ9j5NlXe71X78t IHdpZHRoPSIyMCUiIH WbqHzfve0gsC4cFc3+ PC9j k5zdrf02vI33yNE+PH VmNZH6nUesRAetHSGs eQ5fSElpHjN6NSYjVw IfeN92jOGuLRogOi3u aWdo wYevDW9kVIWidpbgp2 09ElPjz4fhHJYizBHv BWvjINE3X02ca5V4PN UySOImWAB4aXA3vZ6b bGln bjogbGVmdDsgdmVydG ecQSjuTYwdR207MZJi zGfbAbMkdGFzK5tcnx USYG4fBfujpFB+PHRk IHN0 hObkSJhxOPQhnA3zWZ UwX1r3EmFhFyR3IDgf H5RcajP1DXStlJVrKH WyzUMPvN7afuioy5eo cjog BtAlINLgOTj3FAy4BI TxwCsxNkQxNLY7QtG1 LJL7yAVjkF0qwQtqbs hiqW1tSlt+RklOOjwv dGQ+ QDNvLNB4nCwsGBgsSL TyqV8oOWAhQ4t3VaHh CmT3XYflV3BxhbM7GC YzoZAxEYKjjLIOaR8z cztj r5wpygsuJlYjBZQaUF s2EIm4FFKsuLvcKfPl OOF6UwT9LGV1gTQonU 5alGfktjapnF2iOnz+ TVJO OjwvdGQ+SYJoMUF4dR hwOSgcEGBopV8lLBQn B5x1SnCkPuQ1DFbwP4 LufiF0TLBqmTSaOFPi dCBU gK4tgaytc8ujsnpaVr EmVSHmCYc1EWv1GYYv sXcdExIaQSV8ObH3PF I9sYOlmU9efNjhtylh dG9w Oyc+WTL8WAB7ZW03VR 35P2FzRbnqjFJewPD+ PHRhYmxlIHdpZHRoPS qeCMNsExEefKpxEF6i Ym9y ZGV (more content not included)... [facility] Provider Orderson 03-14-2021 Provider Orders [id number]#1.00OTGTIFF [facility] Rad - Other Radiology Report on 03-13-2021 Rad - Other Radiology Report [id number] [place] [address] Rad - Other Radiology Report [id number]#1.00[facility] Rad - Other Radiology Report on 02-20-2021 Rad - Other Radiology Report [id number] [place] [address] Outside Recordson 02-17-2021 Outside Records [id number] [place] [address] Vital Signs Date Time Vital Sign Value Performing Clinician Faci lity 07-28-2024 15:36-0400 Body height 162.6 cm Cassius Hendrix MD Work Phone: [facility] 07-28-2024 15:36-0400 Body mass index (BMI) [Ratio] 24.98 kg/m2 Cassius Hendrix MD Work Phone: [facility] 07-28-2024 15:36-0400 Body weight 66 kg Cassius Hendrix MD Work Phone: [facility] 07-16-2024 14:22-0400 Body height 162.6 cm Cassius Hendrix MD Work Phone: [facility] 07-16-2024 14:22-0400 Body mass index (BMI) [Ratio] 24.98 kg/m2 Cassius Hendrix MD Work Phone: [facility] 07-16-2024 14:22-0400 Body weight 66 kg Cassius Hendrix MD Work Phone: [facility] 07-16-2024 14:22-0400 Diastolic blood pressure 70 mm[Hg] Cassius Hendrix MD Work Phone: [facility] 07-16-2024 14:22-0400 Heart rate 87 /min Cassius Hendrix MD Work Phone: [facility] 07-16-2024 14:22-0400 SaO2% (BldA) [Mass fraction] 98 % Cassius Hendrix MD Work Phone: [facility] 07-16-2024 14:22-0400 Systolic blood pressure 120 mm[Hg] Cassius Hendrix MD Work Phone: [facility] 06-24-2024 14:01-0400 Body height 162.6 cm Swapnil Verhoff PA-C Work Phone: [facility] 06-24-2024 14:01-0400 Body mass index (BMI) [Ratio] 24.55 kg/m2 Swapnil Verhoff PA-C Work Phone: [facility] 06-24-2024 14:01-0400 Body weight 64.86 kg Swapnil Verhoff PA-C Work Phone: [facility] 06-24-2024 14:01-0400 Diastolic blood pressure 56 mm[Hg] Swapnil Verhoff PA-C Work Phone: [facility] 06-24-2024 14:01-0400 Heart rate 66 /min Swapnil Verhoff PA-C Work Phone: [facility] 06-24-2024 14:01-0400 SaO2% (BldA) [Mass fraction] 96 % Swapnil Verhoff PA-C Work Phone: [facility] 06-24-2024 14:01-0400 Systolic blood pressure 101 mm[Hg] Swapnil Verhoff PA-C Work Phone: [facility] 06-16-2024 09:29-0400 Body height 162.6 cm Jose Rochapatrick BARTENDER MANAGER Work Phone: [facility] 06-16-2024 09:29-0400 Body mass index (BMI) [Ratio] 24.89 kg/m2 Jose Maddox BARTENDER MANAGER Work Phone: [facility] 06-16-2024 09:29-0400 Body temperature 97.2 [degF] Jose Rochapatrick BARTENDER MANAGER Work Phone: [facility] 06-16-2024 09:29-0400 Body weight 65.77 kg Jose Harpk BARTENDER MANAGER Work Phone: [facility] 06-16-2024 09:29-0400 Diastolic blood pressure 60 mm[Hg] Jose Richardstrick BARTENDER MANAGER Work Phone: [facility] 06-16-2024 09:29-0400 Heart rate 92 /min Jose Richarsdtrick BARTENDER MANAGER Work Phone: [facility] 06-16-2024 09:29-0400 Systolic blood pressure 112 mm[Hg] Jose Richardstrick BARTENDER MANAGER Work Phone: [facility] Encounters Encounter Date Encounter Type Care Provider Facility Start: 08-25-2024 End: 08-25-2024 ambulatory [facility] Start: 08-19-2024 End: 08-20-2024 Patient encounter procedure [facility] Comment on above: Asymmetrical sensori neural hearing loss (Primary Dx) Start: 08-19-2024 End: 08-20-2024 ambulatory JORY Not Available Start: 08-12-2024 End: 08-12-2024 Clinisync Result Encounter Generic External Data Provider [facility] Unsolicited Start: 08-12-2024 End: 08-12-2024 Clinisync Result Encounter Generic External Data Provider [facility] Unsolicited Start: 07-28-2024 End: 07-28-2024 Office outpatient visit 25 minutes Cassius Hendrix MD Work Phone: [facility] Comment on above: Chronic pain syndrom e (Primary Dx); Lumbosacral spondylosis without myelopathy; Postural kyphosis of cervicothoracic region; Controlled substance agreement signed; Medication monitoring encounter; Polypharmacy Start: 07-28-2024 End: 07-28-2024 ambulatory CASSIUS HENDRIX Not Available Start: 07-28-2024 End: 07-28-2024 Bamboo flowsheet Cassius Hendrix MD Work Phone: [facility] Start: 07-28-2024 End: 07-28-2024 Bamboo flowsheet Cassius Hendrix MD Work Phone: [facility] Start: 07-22-2024 End: 07-22-2024 ambulatory SHAIKH JORY Not Available Start: 07-22-2024 End: 07-22-2024 Patient encounter procedure [facility] Comment on above: Asymmetrical sensori neural hearing loss (Primary Dx) Start: 07-16-2024 End: 07-16-2024 Patient encounter procedure Cassius Hendrix MD Work Phone: [facility] Comment on above: Encounter for Medica re annual wellness exam (Primary Dx); Advance directive discussed with patient; Encounter for screening for other disorder; Screening for alcohol problem; Ventricular tachycardia (CMS/HCC); Primary hypertension (CMS/HCC); Ischemic cardiomyopathy (CMS/HCC); 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); Chronic systolic heart failure (CMS/HCC); 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 heart without angina pectoris (CMS/HCC); 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); Type 2 diabetes mellitus with stage 3b chronic kidney disease, without long-term current use of insulin (HCC) (CMS/HCC); Mixed hyperlipidemia (CMS/HCC) Start: 07-16-2024 End: 07-16-2024 ambulatory CASSIUS HENDRIX Not Available Start: 07-14-2024 End: 07-14-2024 ambulatory [facility] Start: 07-13-2024 End: 07-13-2024 Bamboo flowsheet Mariela Shin CCC-A Work Phone: [facility] Start: 07-13-2024 End: 07-13-2024 Bamboo flowsheet Mariela Shin CCC-A Work Phone: [facility] Start: 07-13-2024 End: 07-14-2024 Telephone encounter Mariela Shin CCC-A Work Phone: [facility] Start: 07-13-2024 End: 07-13-2024 ambulatory MARIELA SHIN Not Available Start: 07-13-2024 End: 07-13-2024 Clinical Support Mariela Shin CCC-A Work Phone: [facility] Comment on above: Asymmetrical sensori neural hearing loss (Primary Dx) Start: 06-24-2024 End: 06-24-2024 Office outpatient new 30 minutes Swapnil ABRAHAMC Work Phone: [facility] Comment on above: Thoracic spine pain (Primary Dx); Lumbar spine pain Start: 06-24-2024 End: 06-24-2024 ambulatory SWAPNIL N [facility] Start: 06-24-2024 End: 06-24-2024 ambulatory JOSE ROCHAPATRICK [facility] Start: 06-16-2024 End: 06-16-2024 Bamboo flowsheet Jose Maddox BARTENDER MANAGER Work Phone: [facility] Start: 06-16-2024 End: 06-16-2024 Bamboo flowsheet Jose Maddox BARTENDER MANAGER Work Phone: [facility] Start: 06-16-2024 End: 06-16-2024 Office outpatient visit 15 minutes Jose Maddox BARTENDER MANAGER Work Phone: [facility] Comment on above: Other chronic pain ( Primary Dx); 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); Type 2 diabetes mellitus with stage 3a chronic kidney disease, without long-term current use of insulin (HCC) (CMS/HCC); Hyperlipidemia, unspecified hyperlipidemia type (CMS/HCC) Start: 06-16-2024 End: 06-16-2024 ambulatory JOSE MADDOX Not Available Start: 06-08-2024 End: 06-08-2024 ambulatory [facility] Start: 03-26-2024 End: 03-26-2024 ambulatory SHAIKH JORY [facility] Start: 03-26-2024 End: 03-26-2024 ambulatory SHAIKH JORY Not Available Start: 03-13-2024 End: 03[facility]13[facility]: 02-18-[facility]24 End: 02-18-2024 [facility] Start: 01-14-2024 End: 01-14-2024 ambulatory ANNA MELENDEZ [facility] Start: 12-25-2023 End: 12-25-2023 ambulatory SHAIKH JORY Not Available Start: 12-17-2023 End: 12-17-2023 [facility] Start: 09-26-2023 End: 09-26-2023 [facility] Start: 09-25-2023 End: 09-25-2023 ambulatory SHAIKH JORY Not Available Start: 02-18-2023 End: 07-16-2024 Assay of hemosiderin, quant Jose Maddox BARTENDER MANAGER Work Phone: [facility] Start: 02-12-2023 End: 02-27-[address] CHUYITA PETERS Facility:[facility] Start: 01-22-2023 End: 01-23-[address] CHUYITA PETERS Facility:[facility] Start: 01-04-2023 End: 01-05-[address] CHUYITA PETERS Facility:[facility] Start: 01-13-2019 Patient encounter procedure Estrellita Dickerson Facility:[id number] Start: 08-27-2018 End: 08-28-2018 Patient encounter procedure DEFAULT PHYSICIAN Facility:[facility] Start: 06-16-2018 End: 06-17-2018 Patient encounter procedure DEFAULT PHYSICIAN Facility:[facility] Start: 05-26-2018 End: 05-27-2018 Patient encounter procedure DEFAULT PHYSICIAN Facility:[facility] Procedures Date Procedure Procedure Detail Performing Clinician Start: 08-12-2024 ALL LIPID PROFILE (FASTING) Generic External Data Provider Start: 08-12-2024 [facility] ALT Generic Ex ternal Data Provider Start: 08-12-2024 [facility] AST Generic Ex ternal Data Provider Start: 07-28-2024 Drug test prsmv read direct optical obs pr date Cassius Hendrix MD Work Phone: Start: 07-13-2024 AUDITORY FUNCTION TESTS Mariela Shin [facility] Work Phone: Plan of Treatment Date Care Activity Detail Author Start: 01-07-2034 DTaP,Tdap and Td Vaccines (2 - Td or Tdap) DTaP,Tdap and Td Vaccines (2 - Td or Tdap) [facility] Start: 06-24-2025 Adult BMI Screening Adult BMI Screen ing [facility] Start: 06-24-2025 Urine screening for protein Diabetes: Urine Protein Screening [facility] Start: 04-16-2025 Glaucoma screening Diabetes: R etinopathy Screening [facility] Start: 12-16-2024 Urine screening for protein Diabetes: Urine Protein Screening [facility] Start: 12-15-2024 End: 12-15-2024 Patient encounter procedure 12/15/2024 9:30 AM EDT Office Visit [facility] [address] [place] [id number] Jose Maddox NP [address] [place] [address] [facility] Start: 10-26-2024 End: 10-26-2024 Patient encounter procedure 10/26/2024 2:00 PM EST Office Visit [facility] [address] [place] [address] Cassius Hendrix MD [address] [place] [id number] (Fax) [facility] Start: 09-25-2024 Hemoglobin A1c measurement Diabetes: Hemoglobin A1C [facility] Start: 09-22-2024 Influenza vaccination Influenza Vacc ine (#1) [facility] Comment on above: Postponed from 05/31 (Patient Refused) Start: 08-19-2024 End: 08-19-2024 Patient encounter procedure [facility] Start: 07-28-2024 End: 07-28-2024 Patient encounter procedure [facility] Comment on above: Arrived Start: 07-16-2024 End: 07-16-2024 Patient encounter procedure 07/16/2024 2:00 PM EDT Office Visit [facility] [address] [facility] [address] [place] [address] Cassius Hendrix MD [address] [facility] [place] [place] [address] [facility] Start: 07-15-2024 End: 07-15-2024 Patient encounter procedure 07/15/2024 11:30 AM EDT Office Visit [facility] [address] [facility] [address] [place] [phone] Ada Bob MD [address] [facility] [address] [place] [address] [facility] Start: 07-13-2024 End: 07-13-2024 Clinical Support 07/13/2024 1:00 PM EDT Clinical Support [facility] [address] [facility] [phone] Mariela Shin, [facility] [address] [place] [address] [facility] Start: 06-16-2024 End: 06-16-2024 Patient encounter procedure 06/16/2024 9:30 AM EDT Office Visit [facility] [address] [place] [phone] Jose Maddox, REBECCA [address] [place] [id number] Arrived [facility] Comment on above: Arrived Start: 05-31-2024 COVID-19 Vaccine ( season) COVID-19 Vaccine ( season) [facility] Start: 05-31-2024 Influenza vaccination [facility] Start: 2001 Fall Risk Screening Fall Risk Screen ing [facility] Start: 1948 Depression Screening Depression Scre ening [facility] Start: 1948 Tobacco Screening Tobacco Screening [facility] Start: 1936 Medicare Annual Wellness Visit Medicare Annual Wellness Visit [facility] Immunizations Immunization Date Immunization Notes Care Provider Fa cili 08-05-2024 influenza virus vacc ine, unspecified formulation Generic Provider [facility] 01-08-2024 tetanus toxoid, redu debbie diphtheria toxoid, and acellular pertussis vaccine, adsorbed Jose Maddox [employer] Work Phone: [facility] 07-11-2023 Influenza, Seasonal, Quadrivalent, Adjuvanted Jose Maddox [employer] Work Phone: [facility] 07-11-2023 influenza virus vacc ine, unspecified formulation Jose Maddox [employer] Work Phone: [facility] 08-15-2022 Moderna SARS-CoV-2 Booster Vaccination Jose Maddox [employer] Work Phone: [facility] 07-19-2022 Influenza, High-dose Seasonal, Quadrivalent, Preservative Free Jose Maddox [employer] Work Phone: [facility] 04-11-2022 SARS-CoV-2, Unspecified Brit se Maddox [employer] MA[employer]GER Work Phone: [facility] 08-04-2021 Influenza, High-dose Seasonal, Quadrivalent, Preservative Free Jose Maddox [employer] MA[employer] Work Phone: [facility] 08-04-2021 Influenza, Seasonal, Quadrivalent, Adjuvanted Jose Maddox [employer] Work Phone: [facility] 12-23-2020 pneumococcal conjuga te vaccine, 13 valent Jose Maddxo [employer] Work Phone: [facility] 06-28-2020 influenza, seasonal, injectable, preservative free Jose Maddox [employer] Work Phone: [facility] 06-27-2020 influenza, injectabl e, quadrivalent, preservative free Jose Maddox BARTENDER MANAGER Work Phone: [facility] 06-27-2020 Influenza, Seasonal, Quadrivalent, Adjuvanted Jose Maddox BARTENDER MANAGER Work Phone: [facility] 06-23-2019 influenza, injectabl e, quadrivalent, preservative free Jose Maddox BARTENDER MANAGER Work Phone: [facility] 06-23-2019 Seasonal trivalent influenza vaccine, adjuvanted, preservative free Jose Maddox BARTENDER MANAGER Work Phone: [facility] 03-23-2019 zoster vaccine recombinant Jose Maddox BARTENDER MANAGER Work Phone: [facility] 12-18-2018 zoster vaccine recombinant Jose Maddox BARTENDER MANAGER Work Phone: [facility] 06-23-2018 influenza, injectabl e, quadrivalent, preservative free Jose Maddox BARTENDER MANAGER Work Phone: [facility] 07-05-2017 influenza, high dose seasonal, preservative-free Jose Maddox BARTENDER MANAGER Work Phone: [facility] 07-05-2017 Influenza, High-dose Seasonal, Quadrivalent, Preservative Free Jose Maddox BARTENDER MANAGER Work Phone: [facility] 07-10-2016 influenza, high dose seasonal, preservative-free Jose Maddox BARTENDER MANAGER Work Phone: [facility] 10-04-2015 influenza, high dose seasonal, preservative-free Jose Maddox BARTENDER MANAGER Work Phone: [facility] 04-25-2015 pneumococcal conjuga te vaccine, 13 valent Jose Maddox BARTENDER MANAGER Work Phone: [facility] 04-21-2015 pneumococcal conjuga te vaccine, 13 valent Jose Maddox BARTENDER MANAGER Work Phone: [facility] 06-30-2014 seasonal influenza, intradermal, preservative free Jose Maddox BARTENDER MANAGER Work Phone: [facility] 06-26-2013 influenza, high dose seasonal, preservative-free Jose Maddox BARTENDER MANAGER Work Phone: [facility] 05-26-2013 pneumococcal polysaccharide vaccine, 23 valent Jose Maddox BARTENDER MANAGER Work Phone: [facility] Healthcare Payers Date Payer Category Payer Medicare (Managed Care) [facility] [id number] 2019 Medicare [id number] 1959 Unknown [id number] 1935 Unknown [id number] 2.16.840.1.592668.3.579. 2.356 1936 Unknown [id number] 2.840.1.637006.3.579. 2.593 1936 Unknown [id number] 2.840.1.959271.3.579. 2.593 1936 Unknown [id number] 2.16.840.1.916668.3.579. 2.593 1936 Unknown [id number] 2.16.840.1.396773.3.579. 2.647 1936 Unknown [id number] 2.16.840.1.134745.3.579. 2.647 1936 Unknown [id number] 2.16.840.1.415054.3.579. 2.647 1936 Unknown [id number] 2.16.840.1.027288.3.579. 2.1286 1936 Unknown [id number] 2.16.840.1.729679.3.579. 2.1286 1936 Unknown [id number] 2.16.840.1.458530.3.579. 2.128 1936 Unknown [id number] 2.16.840.1.184422.3.579. 2.128 1936 Unknown [id number] 2.16.840.1.009807.3.579. 2.128 1936 Unknown [id number] 2.16.840.1.035661.3.579. 2.1286 1936 Unknown [id number] 2.16.840.1.445004.3.579. 2.1286 1936 Unknown [id number] 2.16.840.1.877367.3.579. 2.1259 1936 Unknown [id number] 2.16.840.1.189078.3.579. 2.1259 1936 Unknown [id number] 2.16.840.1.914607.3.579. 2.1259 1936 Unknown [id number] 2.16.840.1.099838.3.579. 2.1259 1936 Unknown [id number] 2.16.840.1.573211.3.579. 2.1259 1936 Unknown [id number] 2.16.840.1.472507.3.579. 2.9 1936 Unknown [id number] 2.16.840.1.159971.3.579. 2.9 1936 Unknown [id number] 2.16.840.1.284828.3.579. 2.1258 1936 Unknown [id number] 2.16.840.1.608743.3.579. 2.9 Unknown Unknown [id number] Social History Date Type Detail Facility Tobacco smoking status MAIS Tobacco smoking consumption unknown [facility] Start: 03-11-2019 End: 06-16-2024 History of Social function [facility] Start: 03-11-2019 End: 06-16-2024 Childcare [facility] Childcare Unknown [facility] Start: 1935 Sex assigned at Not on file [facility] Start: 03-26-2024 Tobacco smoking status [facility] Never smoked tobacco [facility] Start: 03-26-2024 Tobacco use and exposure Smokeless tobacco non-user [facility] Start: 03-26-2024 End: 06-16-2024 Alcoholic beverage intake Lifetime non-drinker (finding) [facility] [...] NINF History of tobacco use Passive smoker [facility] Medical Equipment Procedure Code Equipment Code Equipment Origin al Text Equipment Identifier Dates 1 each by Other route in the morning and 1 each in the evening and 1 each before bedtime. [id number] Start: 06-16-2024 End: 06-16-2024 USE TO TEST BLOO D SUGAR ONCE DAILY [id number] Start: 08-21-2023 Clinical Notes 01-22-2023 to 08-25-2024 Charlotte Blackmon MA - 08/19/2024 3:00 PM Kelli Hendrix MD - 07/28/2024 3:30 PM Brett Blackmon MA - 07/22/2024 1:00 PM Jose Francisco Hendrix MD - 07/16/2024 2:00 PM EDTPatient Instructions Note Date & Type Note Facility 08-25-2024 Note [facility] [facility] Consult Note [place] [facility] Reason for visit: Afib HPI: Daysi De Leon is a 88 y.o. year old with past medical history of CAD s/p CABG and tricuspid annuloplasty on February 2013, cardiomyopathy, AV block s/p dual-chamber pacemaker Biotronik,, hypertension, hyperlipidemia, CKD, diabetes mellitus type 2 who presented for device check. This had revealed the presence of atrial fibrillation that had lasted for about 13 hours patient has not been previously placed on anticoagulation. Had labs and lipid panel a few weeks ago. Denies chest pain, SOB, and palpitations. Not taking lasix and potassium. PMH: Past Medical History: Diagnosis Date Abnormal ECG CHF (congestive heart failure) (CMS/HCC) Conduction disorder of the heart Coronary artery disease Heart valve disease Hyperlipidemia Hypertension NSVT (nonsustained ventricular tachycardia) (CMS/HCC) Primary cardiomyopathy (CMS/HCC) PSH: Past Surgical History: Procedure Laterality Date CORONARY ARTERY BYPASS GRAFT 04/14/2013 INSERT / REPLACE / REMOVE PACEMAKER SH: Social Determinants of Health Tobacco Use: Low Risk (06/16/2024) Received from [facility] Patient History Smoking Tobacco Use: Never Smokeless Tobacco Use: Never Passive Exposure: Never Alcohol Use: Not At Risk (06/16/2024) Received from [facility] AUDIT-C Frequency of Alcohol Consumption: Never Average Number of Drinks: Patient does not drink Frequency of Binge Drinking: Never Financial Resource Strain: Low Risk (06/16/2024) Received from [facility] Overall Financial Resource Strain (CARDIA) Difficulty of Paying Living Expenses: Not hard at all Food Insecurity: No Food Insecurity (06/24/2024) Received from [facility] Hunger Screening Within the past 12 months we worried whether our food would run out before we got money to buy more.: Never True Within the past 12 months the food we bought just didn't last and we didn't have money to get more.: Never True Transportation Needs: No Transportation Needs (06/16/2024) Received from [facility] PRAPARE - Transportation Lack of Transportation (Medical): No Lack of Transportation (Non-Medical): No Physical Activity: Inactive (06/16/2024) Received from [facility] Exercise Vital Sign Days of Exercise per Week: 0 days Minutes of Exercise per Session: 0 min Stress: No Stress Concern Present (06/16/2024) Received from [facility] [place] of Occupational Health - Occupational Stress Questionnaire Feeling of Stress : Not at all Social Connections: Moderately Integrated (06/16/2024) Received from [facility] Social Connection and Isolation Panel [NHANES] Frequency of Communication with Friends and Family: Twice a week Frequency of Social Gatherings with Friends and Family: Twice a week Attends Buddhist Services: More than 4 times per year Active Member of Clubs or Organizations: No Attends Club or Organization Meetings: Never Marital Status: Intimate Partner Violence: Unknown (11/21/2023) [place] Safety & [place] Fear of Current or Ex-Partner: Not on file Emotionally Abused: Not on file Physically Abused: Not on file Sexually Abused: Not on file Physically or Sexually Abused: Not on file Depression: Not at risk (06/16/2024) Received from [facility] PHQ-2 Patient Health Questionnaire-2 Score: 0 Housing Stability: Unknown (06/16/2024) Received from [facility] Housing Stability Vital Sign In the last 12 months, was there a time when you were not able to pay the mortgage or rent on time?: No Number of Times Moved in the Last Year: Not on file At any time in the past 12 months, were you homeless or living in a half-way (including now)?: No Utilities: Not on file Health Literacy: Inadequate Health Literacy (06/16/2024) Received from [facility] B1300 Health Literacy How often do you need to have someone help you when you read instructions, pamphlets, or other written material from your doctor or pharmacy?: Sometimes Allergies: Allergies Allergen Reactions Cefdinir Other Nitrofurantoin Monohyd/M-Cryst Other Weight: 66.7kg Visit Vitals BP 102/62 (BP Location: Right arm, Patient Position: Sitting) Pulse 63 Ht 1.613 m (5' 3.5 ) Wt 66.7 kg (147 lb) SpO2 93% BMI 25.63 kg/m??? Smoking Status Never BSA 1.73 m??? Meds: Current Outpatient Medications on File Prior to Visit Medication Sig Dispense Refill aspirin 81 mg EC tablet Take 1 tablet every day by oral route. atorvastatin (Lipitor) 40 mg tablet Take 1 tablet (40 mg) by mouth at bedtime. 90 tablet 3 calcium carb,cit-mag cit,ox-D3 300 mg-150 mg- 400 unit tablet as directed Orally carvedilol (Coreg) 3.125 mg tablet Take 1 tablet (3.125 mg) by mouth with breakfast and with evening meal. 180 tablet 3 cholecalciferol (Vitamin D-3) 25 MCG (1000 UT) tablet Take 1 (more content not included)... [facility] 08-19-2024 History of Present illness Narrative Patient was in today for a follow up on new hearing aids. Patient previously wore Miracle Ear or Beltone aids. Patient states she is pleased and thinks she is hearing well. Patient did not want any changes. Her daughter felt she heard well the first week or so but not as well recently. Patient herself reminded her daughter that she feels she is hearing well. No adjustments were made. Cosigned by RENEE Lopez at 09/01/2024 9:35 AM EST documented in this encounter [facility] 07-28-2024 History of Present illness Narrative Images from the original note were not included. Patient ID: Daysi De Leon is a 88 y.o. female who presents [...] occurs every day. She has been on [place] and they told her she could take [...] Status Never BSA 1.73 m PDMP reviewed, Cassius Hendrix MD on 07/28/2024 3:58 PM Appears [...] mg by mouth in the morning. HYDROcodone-acetaminophen (Strong[place]) 5-325 MG tablet Take 1 tablet by [...] regular review and prescribing optimization. - HYDROcodone-acetaminophen (Strong[place]) 5-325 MG tablet; Take 1 tablet by [...] evaluation and management. documented in this encounter [facility] 07-22-2024 History of Present illness Narrative Patient was in today to be fit with a Datavolution [id number] LI T hearing aid that she obtained using her [employer] benefit. Patient is an experienced hearing aid wearer. Patient was shown the wood shop teacher and maintenance tasks. Patient aids were coupled [...] 9:32 AM EDT documented in this encounter [facility] 07-16-2024 History of Present illness Narrative Images from the original note were not included. Subjective : Chief Complaint: Daysi De Leon is an 88 y.o. female here for [...] of current healthcare providers: Patient Care Team: Cassius Hendrix MD as PCP - General (Family Medicine) Chuyita Peters MD as PCP - SANDRA Kerns MA as Behavioral Health Case Manager (Family Medicine) Devin Cole MD as Gas Plumbing Inspector (Family Medicine) Saurav Girard MD (Ophthalmology) Medicare [...] Yes Vision Screening: Yes, patient sees regular strapper operator/balancer scale Hearing Screening: Yes, uses hearing aids Cognitive [...] Do you have a medical power of airline reservation agent?: No Objective : BP 120/70 Pulse 87 [...] through a living will, durable power of airline reservation agent for healthcare, or other advanced directives. We [...] and comanaged with Cardiology. 10. 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 heart without angina pectoris (CMS/HCC) Chronic problem [...] currently asymptomatic. Monitor longitudinally Electronically signed by Cassius Hendrix MD on July 28, 2024 documented in this encounter [facility] 07-14-2024 Telephone encounter Note Pt is scheduled with Dr Bob 07/15/24. [facility] 07-14-2024 Miscellaneous Notes Pt is scheduled with Dr Bob 07/15/24. Pt needs appt to F/U audio Pt is HCS patient and saw me for audio + [...] indicated. Thanks Clarisse documented in this encounter [facility] 07-14-2024 Telephone encounter Note Pt needs appt to F/U audio [facility] Work Phone: 07-13-2024 Telephone encounter Note Pt is HCS patient and saw me for audio + [...] further follow up is indicated. Thanks Clarisse [facility] Work Phone: 07-13-2024 History of Present illness Narrative History: Pt has hearing aid benefit through [facility]. She is experienced hearing aid user (Beltone LIANET aids.) At her most recent hearing aid visit she was jerome she needed new aids and was quoted almost $7000. Beltone does not work with her insurance so pt would have to pay out of pocket. Her came to our office recently and selected advanced LIANET aids for $250. Pt is interested in trying the same type of hearing aids. 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 She denies tinnitus. 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 Pt chose [facility]ura [facility]cho[facility] and needs 1M receivers. Will place order in portal today. Pt scheduled for HAF 08-19-24 in the [place] [facility] documented in this encounter [facility] 06-24-2024 History of Present illness Narrative [facility] [address] [place] [id number] Patient: Daysi De Leon Sex: female : 1935 Age: 88 y.o. PCP: Jose Maddox, MIXING MACHINE TENDER CORK ROD-DESULPHURIZER OPERATOR 06/24/2024 Daysi De Leon is here for a(n) initial consultation for low back pain. Pain becomes severe with walking and activity. She reports she has not had xrays or Physical therapy for this pain. Patient and daughter report patient was recently started on Strong[place] 5/325 mg BID PRN. Patient takes one [...] does not radiate. Pain scale: 2/10 today w/Strongstown, increases to 9/10 w/ADLs. The pain is moderate. The pain is Worse during the day. The symptoms are aggravated by bending (walking, stairs, lifting, cold, heat). Pertinent negatives include no chest pain, fever, leg pain, numbness, weakness or weight loss. Risk factors include history of cancer. She has tried ice, heat and NSAIDs (Tylenol, [place], Dry Needling, Prev PT years ago, Biofreeze) for the symptoms. The treatment provided mild relief. The effect of pain on patient's ADLS: Moderate Impairment. Past Medical History: Diagnosis Date Atherosclerosis of alutiiq coronary artery Breast cancer ([facility]) 2000 LEFT Cardiac LV ejection fraction of 20-34% Chronic systolic heart failure ([facility]) Congenital heart failure ([facility]) Diabetic renal disease ([facility] Heart block Hyperlipidemia Hypertension Ischemic cardiomyopathy Kidney disease, chronic, stage III (GFR 30-59 ml/min) ([facility] Low back pain Tricuspid valve disorders, non-rheumatic Type II diabetes mellitus ([facility]) Ventricular tachycardia ([facility] Past Surgical History: Procedure Laterality Date BREAST [...] Resource Strain: Low Risk (06/16/2024) Received from [facility] Overall Financial Resource Strain (CARDIA) Difficulty of Paying Living Expenses: Not hard at all Food Insecurity: No Food Insecurity (06/24/2024) Hunger Screening Food Insecurity - Worry: Never True Food Insecurity - Inability: Never True Transportation Needs: No Transportation Needs (06/16/2024) Received from [facility] PRAPARE - Transportation Lack of Transportation (Medical): No Lack of Transportation (Non-Medical): No Physical Activity: Inactive (06/16/2024) Received from [facility] Exercise Vital Sign Days of Exercise per Week: 0 days Minutes of Exercise per Session: 0 min Stress: No Stress Concern Present (06/16/2024) Received from [facility] [place] of Occupational Health - Occupational Stress Questionnaire Feeling of Stress : Not at all Social Connections: Moderately Integrated (06/16/2024) Received from [facility] Social Connection and Isolation Panel [NHANES] Frequency of Communication with Friends and Family: Twice a week Frequency of Social Gatherings with Friends and Family: Twice a week Attends Buddhist Services: More than 4 times per year Active Member of Clubs or Organizations: No Attends Club or Organization Meetings: Never Marital Status: Interpersonal Safety: Unknown (11/21/2023) Received from [facility] [place] Safety & Environment Fear of Current or Ex-Partner: Not on file Emotionally Abused: Not on file Physically Abused: Not on file Sexually Abused: Not on file Physically or Sexually Abused: Not on file Housing Instability: Unknown (06/16/2024) Received from [facility] Housing Stability Vital Sign Unable to [...] today on physical exam. She reports 1 Strong[place] 5/325 mg tablet per day manages her [...] PA-C by Corinne Flower CNA. Provider Statement: SWAPNIL Zapata PA-C, personally performed the services described in the documentation, as scribed by Corinne Flower CNA in my presence, and it is both accurate and complete. Corinne Flower CNA 06/24/24 1519 Corinneyadira Flower, TIE PRESSER 06/24/24 1541 Swapnil Ramírez PA-C 06/30/24 1145 documented in this encounter [facility] 06-16-2024 History of Present illness Narrative Associated Problem(s): Stage 3b chronic kidney disease (HCC) ([facility]) Lisinopril and Jardiance Follows nephrology: Most recent GFR: 42 Creatinine: 1.24 Avoid nephrotoxic agents Associated Problem(s): Type 2 diabetes mellitus with stage 3a chronic kidney disease, without long-term current use of insulin (HCC) ([facility]) Jardiance 10mg Most recent labs: hemoglobin A1C Average FSBS range from BGs have been labile ranging between 120 and 130 No episode of hypoglycemia No medication adverse effects reported by the patient. Patient educated on lifestyle modifications, dietary restrictions, signs and symptoms of hypoglycemia/hyperglycemia and importance of eating regular consistent meals. Stressed upon importance of checking blood glucose at home and bring blood glucose log to appointments. All questions, concerns answered and addressed. Encouraged to call office if persistent hypoglycemia/hyperglycemia on home glucose monitoring noted. Associated Problem(s): Hyperlipidemia ([facility]/HCC) Currently taking atorvastatin 40mg Zetia 10mg Most recent lipid panel 03/23- [facility] Denies any myalgias. Continue current regimen. Associated Problem(s): Essential hypertension ([facility]/HCC) Currently taking carvedilol 3.125mg Lisinopril 2.5mg Checks BP at home; Averages are 110-120s. Denies orthostatic changes, dizziness, cough, shortness of breath, swelling in extremities. Continue current regimen. Given BP log, advised pt to record BP and bring log back with them to next visit. Images from the original note were not included. Subjective Patient ID: Daysi De Leon is a 88 y.o. female who presents for Follow-up. HPI Specailsts: Cardiology Nephrology Is having lumbar back pain Has been taking Tylenol 600mg States it helops but her muscle pain is still very prominent Will send referral to PM HTN: Currently taking carvedilol 3.125mg Lisinopril 2.5mg Checks BP at home; Averages are 110-120s. Denies orthostatic changes, dizziness, cough, shortness of breath, swelling in extremities. Continue current regimen. Given BP log, advised pt to record BP and bring log back with them to next visit. HLD: Currently taking atorvastatin 40mg Zetia 10mg Most recent lipid panel 03/23- [facility] Denies any myalgias. Continue current regimen. Component Ref Range & Units 2 mo ago (03/26/24) 2 mo ago (03/26/24) 8 mo ago (09/26/23) 8 mo ago (09/26/23) Cholesterol 150 - 200 mg/dL 101 Low 101 Low 152 152 Triglycerides 27 - 150 mg/dL 61 88 HDL Cholesterol >39 mg/dL 45 46 CM Comment: HDL <40 mg/dL - High Risk HDL > or = 40mg/dL- Desirable HDL >60 mg/dL - Negative Risk VLDL Cholesterol 0 - 30 mg/dL 12 18 LDL Calculated <130 mg/dL 44 88 CM Comment: LDL <100 mg/dL - Desirable LDL >160 mg/dL - High Risk CHOLESTEROL/HDL RATIO 1.0 - 5.0 2.2 3.3 [facility] PRO DMII: Education: Check blood sugars daily, notify if <70 or >200. Take medications (pills or insulin) as directed. Monitor for s/s of hypoglycemia (sweaty, dizziness, nausea, vomiting, or shakiness). Watch for increase in thirst, urination, or appetite. Inspect feet frequently monitoring for open wounds , and also recommend yearly eye exam. Pt should attempt to remain as physically active as chronic conditions allow, as well as trying to follow a diet low in carbohydrates, and simple sugars. CKD: Follows nephrology: Most recent GFR: 42 Creatinine: 1.24 Avoid nephrotoxic agents Review of Systems Constitutional: Negative for activity change, appetite change, chills, diaphoresis, fatigue, fever and unexpected weight change. HENT: Negative for congestion, ear pain, rhinorrhea, sinus pressure, sinus pain, sneezing, sore throat, trouble swallowing and voice change. Eyes: Negative for visual disturbance. Respiratory: Negative for cough, chest tightness, shortness of breath and wheezing. Cardiovascular: Negative for chest pain, palpitations and leg swelling. Gastrointestinal: Negative for abdominal distention, abdominal pain, blood in stool, constipation, diarrhea and vomiting. Genitourinary: Negative for decreased urine volume, dysuria, flank pain, frequency, hematuria and urgency. Musculoskeletal: Positive for back pain and myalgias. Negative for arthralgias, gait problem and joint swelling. Skin: Negative for rash. Neurological: Negative for dizziness, tremors, syncope, weakness, light-headedness and headaches. Psychiatric/Behavioral: Negative for decreased concentration and suicidal ideas. The patient is not nervous/anxious. Hematological: Does not bruise/bleed easily. Endocrine: Negative for cold intolerance, heat intolerance, polydipsia, polyphagia and polyuria. Objective Physical Exam Vitals reviewed. Constitutional: Appearance: Normal appearance. HENT: Head: Normocephalic and atraumatic. Right Ear: Tympanic membrane normal. Left Ear: Tympanic membrane normal. Nose: Nose normal. Mouth/Throat: Mouth: Mucous membranes are moist. Pharynx: Oropharynx is clear. Eyes: Pupils: Pupils are equal, round, and reactive to light. Cardiovascular: Rate and Rhythm: Normal rate and regular rhythm. Pulses: Normal pulses. Heart sounds: Normal heart sounds. Pulmonary: Effort: Pulmonary effort is normal. Breath sounds: Normal breath sounds. Abdominal: General: Abdomen is flat. Bowel sounds are normal. Palpations: Abdomen is soft. Musculoskeletal: General: Normal range of motion. Cervical back: Normal range of motion. Skin: General: Skin is warm and dry. Capillary Refill: Capillary refill takes less than 2 seconds. Neurological: General: No focal deficit present. Mental Status: She is alert and oriented to person, place, and time. Psychiatric: Mood and Affect: Mood normal. Behavior: Behavior normal. Assessment/Plan Problem List Items Addressed This Visit Hyperlipidemia ([facility]) Currently taking atorvastatin 40mg Zetia 10mg Most recent lipid panel 03/23- WNL Denies any myalgias. Continue current regimen. Other chronic pain - Primary Relevant Orders Ambulatory referral to Pain Medicine Stage 3b chronic kidney disease ([facility]) ([facility]) Lisinopril and Jardiance Follows nephrology: Most recent GFR: 42 Creatinine: 1.24 Avoid nephrotoxic agents Type 2 diabetes mellitus with stage 3a chronic kidney disease, without long-term current use of insulin ([facility]) ([facility]) Jardiance 10mg Most recent labs: hemoglobin A1C Average FSBS range from BGs have been labile ranging between 120 and 130 No episode of hypoglycemia No medication adverse effects reported by the patient. Patient educated on lifestyle modifications, dietary restrictions, signs and symptoms of hypoglycemia/hyperglycemia and importance of eating regular consistent meals. Stressed upon importance of checking blood glucose at home and bring blood glucose log to appointments. All questions, concerns answered and addressed. Encouraged to call office if persistent hypoglycemia/hyperglycemia on home glucose monitoring noted. Relevant Medications Lancets (onetouch ultrasoft) lancets documented in this encounter [facility] 06-16-2024 Instructions Jose Maddox NP - 06/16/2024 9:30 AM EDT Your blood pressure is GOOD in the office today. Check your blood pressure at home 3 times per week, preferably in the afternoon. Goal <130/90. Record results in blood pressure log. Bring back with you to your next visit. Education: Check blood sugars daily, notify if <70 or >200. Take medications (pills or insulin) as directed. Monitor for s/s of hypoglycemia (sweaty, dizziness, nausea, vomiting, or shakiness). Watch for increase in thirst, urination, or appetite. Inspect feet frequently monitoring for open wounds , and also recommend yearly eye exam. Pt should attempt to remain as physically active as chronic conditions allow, as well as trying to follow a diet low in carbohydrates, and simple sugars. Call if you need anything! MAXIMUM TYLENOL 4,000mg PER DAY! documented in this encounter [facility] 06-08-2024 Note [place] [facility] Subjective Daysi De Leon is a 88 y.o. year old female [...] breast (CMS/HCC) Essential hypertension Fall HPI Daysi De Leon is a 88 y.o. year old female follows with Dr. Cole with history of CAD, status post CABG [...] left ventricular ejection (more content not included)... [facility] 03-13-2024 Note [place] [facility] Subjective Daysi De Leon is a 88 y.o. year old female patient being seen for 6 mo follow up CAD, CHF, and NSVT s/p PPM. Had muga scan and routine device interrogation last month. She denies chest pain, palpitations, and lightheadedness/syncope. She has SOB. Had labs in December 2023. She is doing well she says. Her metal spray operator stopped lasix since last visit. Patient Active [...] an area of anteroseptal and inferolateral prior [place]. Update 09/01/2018: She is seen in follow [...] discussion regarding upgrade of her pacemaker to PUBLIC HEALTH ASSISTANT-D device. She met with him and he [...] have shortness of (more content not included)... [facility] 11-29-2023 Note [facility] 01-22-2023 Note CARDIAC STRESS TEST Requesting Physician: Devin Cole M.D. Procedure Date:01/22/2023 PERFORMING PHYSICIAN: Tarun Cole [...] reported nuclear myocardial perfusion imaging report. [facility] Evaluation note Diagnosis Thoracic spine pain- Primary Pain in thoracic spine Lumbar spine pain documented in this encounter [facility]* Diagnosis 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)- Primary Routine general medical examination at health care facility Routine general medical examination at a health care facility Other chronic pain Cardiac LV ejection fraction of 20-34% 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 heart without angina pectoris (CMS/HCC) Chronic systolic [...] Screening for alcoholism documented in this encounter [facility] HealthcareEvaluation note* Diagnosis 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)- Primary Routine general medical examination at health care facility Routine general medical examination at a health care facility Other chronic pain Cardiac LV ejection fraction of 20-34% 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 heart without angina pectoris (CMS/HCC) Chronic systolic [...] hearing loss, asymmetrical documented in this encounter [facility] HealthcareEvaluation note* Diagnosis 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)- Primary Routine general medical examination at health care facility Routine general medical examination at a health care facility Other chronic pain Cardiac LV ejection fraction of 20-34% 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 heart without angina pectoris (CMS/HCC) Chronic systolic [...] (CMS/HCC) Chronic systolic heart failure 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 heart without angina pectoris (CMS/HCC) 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) Type 2 diabetes mellitus with stage 3b chronic kidney disease, without long-term current use of insulin (HCC) (CMS/HCC) Mixed hyperlipidemia (CMS/HCC) Mixed hyperlipidemia documented in this encounter [facility] HealthcareEvaluation note* Diagnosis 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)- Primary Routine general medical examination at health care facility Routine general medical examination at a health care facility Other chronic pain Cardiac LV ejection fraction of 20-34% 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 heart without angina pectoris (CMS/HCC) Chronic systolic [...] repeat prescriptions documented in this encounter [facility]* Diagnosis 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)- Primary Routine general medical examination at health care facility Routine general medical examination at a health care facility Other chronic pain Cardiac LV ejection fraction of 20-34% 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 heart without angina pectoris (CMS/HCC) Chronic systolic [...] hearing loss, asymmetrical documented in this encounter [facility] HealthcareEvaluation note* Diagnosis Other chronic pain- Primary 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, without long-term current use of insulin (HCC) (CMS/HCC) Hyperlipidemia, unspecified hyperlipidemia type (CMS/HCC) documented in this encounter [facility] HealthcareInstructionsNot on filedocumented in [facility] ([facility])* Consultation (Routine) - Pending Review Specialty Diagnoses / Procedures Referred By Dylan ojeda Referred To Contact Pain Medicine Diagnoses Other chronic pain Procedures [place] OFFICE/OUTPATIENT [facility] MDM 60 MINUTES Jose Maddox NP [address] [place] [phone] Murphy Catalan MD [address] [place] [address] Referral ID Status Reason Start Date Expiration Date Visits Requested Visits Authorized [id number] Pending Review Specialty Services Required 06/16/2024 12/13/2024 1 1 [facility] Healthcare Summary Purpose Family History No Family History Records FoundNo Family History Records FoundNo Family History Records FoundNo Family History Records FoundNo Family History Records FoundNo Family History Records FoundNo Family History Records FoundNo Family History Records Found Advance Directives Date Activated Date Inactivated Comments 05/29/2024 8:16 AM Documents on File Type Date Recorded Patient Service Sprinkler Helper Expl anation Advance Directives and Living Will 07/28/2024 3:34 PM 2010-08-31 living Wi ll Date Activated Date Inactivated Comments 05/29/2024 8:16 AM Additional Source Comments INFORMATION SOURCE (unrecogn ized section and content) DATE CREATED AUTHOR 09/08/2018 [facility] DATE CREATED AUTHOR AUTHOR'S ORGANIZ ATION 01/30/2019 [facility] DATE CREATED AUTHOR AUTHOR'S ORGANIZ ATION 03/16/2021 [facility] DATE CREATED AUTHOR AUTHOR'S ORGANIZ ATION 02/27/2022 [facility] dical Specialist DATE CREATED AUTHOR AUTHOR'S ORGANIZ ATION 03/08/[address] [facility] pital DATE CREATED AUTHOR AUTHOR'S ORGANIZ ATION 07/16/2024 [facility] DATE CREATED AUTHOR AUTHOR'S ORGANIZ ATION 08/22/2024 [facility] dical Specialists EPIC DATE CREATED AUTHOR AUTHOR'S ORGANIZ ATION 08/28/2024 [facility] Reason for Visit (unrecogniz ed section and content) Reason Comments Back Pain Reason Comments Annual Exam Reason Comments Pain Reason Comments Follow-up Care Teams (unrecognized sec tion and content) Service Bar Cashier Relationship Specialty Start Date End Date Jose Maddox, MIXING MACHINE TENDER CORK ROD-DESULPHURIZER OPERATOR [address] [place] [address] PCP - General Nurse Practitioner 06/24/24 Service Bar Cashier Relationship Specialty Start Date End Date Chuyita Peters MD [address] [place] [address] PCP - Obie MADSEN 09/30/21 Ray Banda MD [address] [place] [address] PCP - General Family Medicine 05/07/24 Jose Maddox NP [address] [place] [address] Nurse Practitioner Family Medicine 05/07/24 Adia Pearson LSW Behavioral Health Case Manager Family Medicine 05/26/24 Service Bar Cashier Relationship Specialty Start Date End Date Chuyita Peters MD [address] [place] [address] PCP - Obie MADSEN 09/30/21 Ray Banda MD [address] [place] [phone] PCP - General Family Medicine 05/07/24 Jose Maddox NP [address] [place] [address] Nurse Practitioner Family Medicine 05/07/24 Adia Pearson LSW Behavioral Health Case Manager Family Medicine 05/26/24 Service Bar Cashier Relationship Specialty Start Date End Date Chuyita Peters MD [address] [facility] [place] [address] PCP - Obie MADSEN 09/30/21 Ray Banda MD [address] [place] [address] PCP - General Family Medicine 05/07/24 Jose Maddox NP [address] [place] [address] Nurse Practitioner Family Medicine 05/07/24 Adia Pearson LSW Behavioral Health Case Manager Family Medicine 05/26/24 Service Bar Cashier Relationship Specialty Start Date End Date Chuyita Peters MD [address] [place] [address] PCP - Obie MADSEN 09/30/21 Cassius Hendrix MD [address] [place] [address] (Fax) PCP - General Family Medicine 07/16/24 Adilia Larose LSW Behavioral Health Case Manager Family Medicine 07/16/24 Devin Cole MD [address] [place] [phone] Gas Plumbing Inspector Family Medicine 07/16/24 Saurav Girard MD [address] [place] [phone] Ophthalmology 07/16/24 Service Bar Cashier Relationship Specialty Start Date End Date Chuyita Peters MD [address] [place] [address] PCP - Obie MADSEN 09/30/21 Cassius Hendrix MD [address] [phone] (Fax) PCP - General Family Medicine 07/16/24 Adia Pearson LSW Behavioral Health Case Manager Family Medicine 05/26/24 07/16/24 Adilia Larose LSW Behavioral Health Case Manager Family Medicine 07/16/24 Devin Cole MD [address] [place] [phone] Gas Plumbing Inspector Family Medicine 07/16/24 Saurav Girard MD [address] [place] [phone] Ophthalmology 07/16/24 Service Bar Cashier Relationship Specialty Start Date End Date Chuyita Peters MD [address] [place], [place] [phone] PCP - Obie MADSEN 09/30/21 Cassius Hendrix MD [address] [place] [address] (Fax) PCP - General Family Medicine 07/16/24 Adilia Larose LSW Behavioral Health Case Manager Family Medicine 07/16/24 Devin Cole MD [address] [place] [phone] Gas Plumbing Inspector Family Medicine 07/16/24 Saurav Girard MD [address] [place] [phone] Ophthalmology 07/16/24 Service Bar Cashier Relationship Specialty Start Date End Date Chuyita Peters MD [address] [place], [place] [phone] PCP - Obie MADSEN 09/30/21 Cassius Hendrix MD [address] [place] [address] (Fax) PCP - General Family Medicine 07/16/24 Adilia Larose LSW Behavioral Health Case Manager Family Medicine 07/16/24 Devin Cole MD [address] [place] [phone] Gas Plumbing Inspector Family Medicine 07/16/24 Saurav Girard MD [address] [place] [phone] Ophthalmology 07/16/24 Service Bar Cashier Relationship Specialty Start Date End Date Chuyita Peters MD [address] [facility] [place], [place] [phone] PCP - Obie MADSEN 09/30/21 Cassius Hendrix MD [address] [place] [address] (Fax) PCP - General Family Medicine 07/16/24 Adilia Larose LSW Behavioral Health Case Manager Family Medicine 07/16/24 Devin Cole MD [address] [place] [phone] Gas Plumbing Inspector Family Medicine 07/16/24 Saurav Girard MD [address] [place] [phone] Ophthalmology 07/16/24 Suzanna Olmos, RN Registered Nurse Family Medicine 07/31/24 Suzanna Olmos, RN Registered Nurse Family Medicine 08/05/24 Service Bar Cashier Relationship Specialty Start Date End Date Chuyita Peters MD [address] [facility] [place], [place] [phone] PCP - Obie MADSEN 09/30/21 Cassius Hendrix MD [address] [place] [address] PCP - General Family Medicine 07/16/24 Adilia Larose LSW Behavioral Health Case Manager Family Medicine 07/16/24 Devin Cole MD [address] [place] [phone] Gas Plumbing Inspector Family Medicine 07/16/24 Saurav Girard MD [address] [place] [phone] Ophthalmology 07/16/24 Suzanna Olmos, RN Registered Nurse Family Medicine 07/31/24 Suzanna Olmos, RN Registered Nurse Family Medicine 08/05/24 Service Bar Cashier Relationship Specialty Start Date End Date Chuyita Peters MD [address] [place] [address] PCP - Obie MADSEN 09/30/21 Ray Banda MD [address] [place] [address] PCP - General Family Medicine 05/07/24 Jose Maddox NP [address] [place] [address] Nurse Practitioner Family Medicine 05/07/24 Adia Pearson LSW Behavioral Health Case Manager Family Medicine 05/26/24 Service Bar Cashier Relationship Specialty Start Date End Date Chuyita Peters MD [address] [place] [address] PCP - Obie MADSEN 09/30/21 Ray Banda MD [address] [place] [address] PCP - General Family Medicine 05/07/24 Jose Maddox NP [address] [place] [address] Nurse Practitioner Family Medicine 05/07/24 Adia Pearson LSW Behavioral Health Case Manager Family Medicine 05/26/24 FOR RECORDS PERTAINING TO PATIENTS WHO ARE [...] BE BASED ON THE PRIMARY CLINICAL RECORDS. [facility]. provides no warranty or guarantee of the accuracy or completeness of information in this document.
== END 2024-09-11 13:35 | disposition home or self-care (01) ==
LOC: CARD 13:35
PROVIDERS: PCP Family Medicine; Visit Provider Internal Medicine Cardiovascular Disease
DX: I48.0 Paroxysmal atrial fibrillation (principal)
CPT/HCPCS: 93306; 93356

== ENCOUNTER 2025-02-23 13:58 | Outpatient (OUT) | payer MEDICARE, SELFPAY ==
--- OUTSIDE RECORDS SUMMARY | 2025-02-09 10:30 | XMS_ITS | Encounter Summary ---
Author Organization [facility] Address [address] [place] [address] Care Team Providers Care Finishing Supervisor Plastic Sheets Name Role Phone Cassius Patel MD Primary Care Provider [phone] Encounter Details Date Type Department Care Team (Latest Contact Info) Description 02/09/2025 10:30 AM EDT Ancillary Procedure [place] [address] [place] [address] Encounter for implantable defibrillator reprogramming or check Social History Tobacco Use Types Packs/Day Years Used Date Smoking Tobacco: Never Smokeless Tobacco: Never Alcohol Use Standard Drinks/Week Comments Not Currently 0 (1 standard drink = 0.6 oz pur e alcohol) [place] Safety & Environment Answer Date Rec orded Fear of Current or Ex-Partner Not on file Emotionally Abused Not on file 11/21/2023 Physically Abused Not on file 11/21/2023 Sexually Abused Not on file 11/21/2023 Physically or Sexually Abused Not on file Sex and Gender Information Value Date Recorded Sex Assigned at Female 07/01/2024 11:11 PM EDT Gender Identity Female 07/01/2024 11:11 PM EDT Sexual Orientation Not on file documented as of this encounter Plan of Treatment Upcoming Encounters Date Type Department Care Team (Late st Contact Info) Description 03/01/2025 11:00 AM EDT Office Visit [facility] [address] [place] [phone] Erasmo Cole MD [address] [facility] [address] [facility] [place] [phone] Pending Results Name Type Priority Associated Diagnoses Date /Time Cardiac device check - In Clinic Implantable Cardiac Device Routine Encounter for implantable defibrillator reprogramming or check 02/10/2025 11:27 AM EDT documented as of this encounter Visit Diagnoses Diagnosis Encounter for implantable defibrillator reprogramming or check Fitting and adjustment of automatic implantable cardiac defibrillator documented in this encounter Care Teams Finishing Supervisor Plastic Sheets Relationship Specialty Start Date End Date Cassius Patel MD [address] [place] [address] PCP - General 08/25/24 documented as of this encounter
--- NOTE | 2025-02-23 14:00 | CA_ITS ---
Patient Name: FEDE DE LEON MR#: [id number] : 1935 Exam Date: 02/23/2025 Ordering Doctor: DR DEVIN KELSEY M.D. ECHOCARDIOGRAM REPORT PROCEDURE: CA ECHO DOPPLER COMPLETE INDICATIONS: Heart failure with reduced ejection fraction, CABG, left mastectomy breast cancer, pacemaker, diabetes COMPARISON: None. DESCRIPTION: COMPLETE ECHOCARDIOGRAM Real-time transthoracic echocardiography with 2D, M-mode, spectral and color flow Doppler performed. QUALITY: Technical quality was good. LEFT VENTRICLE: Normal chamber size. Normal left ventricular wall thickness. The septum is abnormal in motion likely due to bundle branch block. Calculated left ventricular ejection fraction is 46%. LV EF: Mildly reduced left ventricular ejection fraction, (45-50%). DIASTOLIC: Grade II diastolic dysfunction. ATRIAL SEPTUM: LEFT ATRIUM: Mild dilatation. RIGHT ATRIUM: Mild dilatation. RIGHT VENTRICLE: Normal chamber size. Normal systolic function. Pacer wire present. TRICUSPID VALVE: s/p annuloplasty repair. Normal mobility and thickness. No stenosis with mild regurgitation. No evidence of pulmonary hypertension. RVSP 26 mmHg MITRAL VALVE: Normal mobility and thickness. No evidence of mitral valve stenosis. Mitral annular calcification. Mild mitral regurgitation. AORTIC VALVE: Normal trileaflet appearance. Mildly calcified aortic valve. Mildly diminished mobility. Doppler velocity suggest moderate aortic valve stenosis. DVI 0.4, GALINA 1.3 cm2. Trivial aortic regurgitation. AORTIC ROOT: Normal diameter and appearance, measuring 2.9 cm. Ascending aorta and aortic arch are normal in size, measuring 2.9 cm. PULMONIC VALVE: Normal thickness and mobility. No stenosis. Trivial regurgitation. PERICARDIUM: No evidence of pericardial effusion. IVC: Collapses with inspirations. IVC is normal in size. PLEURA: CONCLUSION: 1. Left ventricular is normal in size and exhibits mildly reduced systolic function. LVEF is estimated at 45 to 50%. 2. Normal right ventricular size and systolic function. 3. Grade 2 diastolic dysfunction. 4. Mild biatrial dilatation. 5. Mild mitral and tricuspid regurgitation. 6. Moderate aortic valve stenosis. 7. Normal right-sided pressures. Adult Echocardiography Procedure Report Left Ventricle LVEDD (3.7 - 5.6 cm): 4.91 cm LVESD (2.2 - 4.0 cm): 3.60 cm LVIVS thickness (0.6 - 1.2 cm): 0.87 cm LVPW thickness (0.5 - 1.0 cm): 0.81 cm e': 0.06 m/s E - e': 13.84 LVOT Max Gradient: 1.63 mm[Hg] LVOT Area (cm2): 0.64 m/s Peak Velocity (LVOT): 0.64 m/s Mean Velocity (LVOT): 0.48 m/s LVOT Diameter 2.09 cm Left Atrium LA Volume Index (2D A2C): 29.51 ml/m2 Left Atrium Systolic Dimension: 3.82 cm Mitral Valve MV E to A Ratio: 1.21 Mitral Valve A-Wave Peak Velocity: 0.74 m/s Mitral Valve E-Wave Peak Velocity: 0.89 m/s Right Ventricle Aorta AO Root Diam: 2.90 cm Ascending Ao Diam: 2.93 cm Aortic Valve AoV Area (Peak Erasmo): 0.52 cm2, 1.29 cm2 AoV Area (VTI): 0.76 cm2, 1.26 cm2 Peak Velocity(Antegrade Flow): 1.68 m/s, 4.17 m/s Peak Gradient(Antegrade Flow): 11.31 mm[Hg], 69.58 mm[Hg] Mean Velocity(Antegrade Flow): 1.21 m/s, 2.16 m/s Mean Gradient(Antegrade Flow): 6.68 mm[Hg], 26.32 mm[Hg] Velocity Time Integral: 35.81 cm, 59.06 cm Tricuspid Valve Peak Velocity (Regurgitant Flow): 2.14 m/s, 2.39 m/s, 2.31 m/s Pulmonic Valve Mean Gradient: 2.20 mm[Hg] Mean Velocity: 0.69 m/s Peak Velocity: 1.05 m/s, 0.86 m/s Peak Gradient: 2.95 mm[Hg], 4.40 mm[Hg] Right Atrium Right Atrium Systolic Pressure: 40.96 ml, 40.96 ml Dictated by: Devin Kelsey M.D. on 02/23/2025 at 16:12 Approved by: Devin Kelsey M.D. on 02/23/2025 at 16:22
--- OUTSIDE RECORDS SUMMARY | 2025-02-23 14:02 | XMS_ITS | Encounter Summary ---
Author Organization [facility] Address [address] [place] [address] Care Team Providers Care Macroeconomics Professor Name Role Phone Adilia Larose Unavailable Cassius Patel MD Primary Care Provider [phone] Erasmo Cole MD Unavailable [phone] Saurav Girard MD Unavailable [phone] Suzanna Olmos RN Unavailable [phone] Suzanna Olmos RN Unavailable Encounter Details Date Type Department Care Team (Late st Contact Info) Description 01/18/2025 Orders Only [facility] [address] [place] [id number] Jose A [place], [place] Screening mammogram, encounter for; H/O left mastectomy; History of breast cancer Social History Tobacco Use Types Packs/Day Years Used Date Smoking Tobacco: Never Passive Smoke Exposure: Never Smokeless Tobacco: Never Alcohol Use Standard Drinks/Week Comments Never 0 (1 standard drink = 0.6 oz pur e alcohol) caffeine [id number] Health Literacy Answer Date Recor ded How often do you need to hav e someone help you when you read instructions, pamphlets, or other written material from your doctor or pharmacy? Sometimes 06/16/2024 Humiliation, Afraid, Rape, and Kick questionnair e Answer Date Recorded Within the last year, have y ou been afraid of your partner or ex-partner? No 02/18/2023 Within the last year, have y ou been humiliated or emotionally abused in other ways by your partner or ex-partner? No Within the last year, have y ou been kicked, hit, slapped, or otherwise physically hurt by your partner or ex-partner? No 02/18/2023 Within the last year, have y ou been raped or forced to have any kind of sexual activity by your partner or ex-partner? No 02/18/2023 Social Connection and Isolat ion Panel [NHANES] Answer Date Recorded In a typical week, how many times do you talk on the phone with family, friends, or neighbors? Twice a week 06/16/2024 How often do you get togethe r with friends or relatives? Twice a week 06/16/2024 How often do you attend [facility] or christianity services? More than 4 times per year 06/16/2024 Do you belong to any clubs o r organizations such as muslim groups, unions, fraternal or athletic groups, or school groups? No 06/16/2024 How often do you attend meet ings of the clubs or organizations you belong to? Never 06/16/2024 Are you , , di vorced, , never , or living with a partner? 06/16/2024 AUDIT-C Answer Date Recorded Q1: How often do you have a drink containing alcohol? Never 06/16/2024 Q2: How many drinks containi ng alcohol do you have on a typical day when you are drinking? Patient does not drink Q3: How often do you have si x or more drinks on one occasion? Never 06/16/2024 Overall Financial Resource Strain (CARDIA) Answe r Date Recorded How hard is it for you to pa y for the very basics like food, housing, medical care, and heating? Not hard at all 06/16/2024 PHQ-2 Answer Date Recorded Patient Health Questionnaire-2 Score 0 07/14/2024 [facility] - Occupational Stress Questionnaire Answer Date Recorded Do you feel stress - tense, restless, nervous, or anxious, or unable to sleep at night because your mind is troubled all the time - these days? Not at all 06/16/2024 Exercise Vital Sign Answer Date Recorde d On average, how many days pe r week do you engage in moderate to strenuous exercise (like a brisk walk)? 0 days 06/16/2024 On average, how many minutes do you engage in exercise at this level? 0 min 06/16/2024 Hunger Vital Sign Answer Date Recorded Within the past 12 months, y ou worried that your food would run out before you got the money to buy more. Never true 06/16/20 24 Within the past 12 months, t he food you bought just didn't last and you didn't have money to get more. Never true 06/16/2024 PRAPARE - Transportation Answer Date Re corded In the past 12 months, has l ack of transportation kept you from medical appointments or from getting medications? No 05/31 In the past 12 months, has l ack of transportation kept you from meetings, work, or from getting things needed for daily living? No 06/16/2024 Housing Stability Vital Sign Answer Jake e Recorded In the last 12 months, was t here a time when you were not able to pay the mortgage or rent on time? Yes 02/18/2023 In the last 12 months, how many places have you lived? 1 02/18/2023 In the last 12 months, was t here a time when you did not have a steady place to sleep or slept in a skilled nursing (including now)? No 02/18/2023 Housing Stability Vital Sign Answer Jake e Recorded In the last 12 months, was t here a time when you were not able to pay the mortgage or rent on time? No 06/16/2024 Number of Times Moved in the Last Year Not on fi le 06/16/2024 At any time in the past 12 m [facility], were you homeless or living in a skilled nursing (including now)? No 06/16/2024 Comments No Sex and Gender Information Value Date Recorded Sex Assigned at Not on file Legal Sex Female 6:48 PM EDT Gender Identity Not on file Sexual Orientation Not on file documented as of this encounter Plan of Treatment Upcoming Encounters Date Type Department Care Team (Late st Contact Info) Description 04/13/2025 2:00 PM EDT Office Visit [facility] [address] [place] [address] Cassius Patel MD [address] [facility] 100 [place] [address] (Fax) documented as of this encounter Visit Diagnoses Diagnosis Screening mammogram, encounter for H/O left mastectomy History of breast cancer Personal history of malignant neoplasm of breast documented in this encounter Additional Health Concerns Assessment Noted Time PHQ-9 Depression Total Score: 1 03/26/20 24 9:21 AM EDT documented as of this encounter Care Teams Macroeconomics Professor Relationship Specialty Start Date End Date Cassius Patel MD [address] [facility] 100 [place] [address] (Fax) PCP - General Family Medicine 07/16/24 Adilia Larose LSW Auto Body Straightener Family Medicine 07/16/24 Erasmo Cole MD [address] [place] [phone] (Fax) Advisor Consultant Family Medicine 07/16/24 Saurav Girard MD [address] [place] [phone] Ophthalmology 07/16/24 Suzanna Olmos, RN Registered Nurse Family Medicine 07/31/24 Suzanna Olmos, ISABELLE Registered Nurse Family Medicine 08/05/24 documented as of this encounter
--- OUTSIDE RECORDS SUMMARY | 2025-02-23 14:02 | XMS_ITS | Encounter Summary ---
Author Organization [facility] Address [address] [place] [address] Care Team Providers Care Salesperson Parts Name Role Phone Chuyita Peters MD Unavailable Shaikh NANETTE Locke Primary Care Provider Vlad Banuelos [employer] Unavailable Unavailable Ray Banda MD Primary Care Provider Suzette Maddox CHARGE LOADER Unavailable Adia Pearson SILVER BRAZER Unavailable Adilia Larose SILVER BRAZER Unavailable Cassius Patel MD Primary Care Provider Erasmo Cole MD Unavailable Saurav Girard MD Unavailable Suzanna Olmos RN Unavailable [phone] Suzanna Olmos RN Unavailable [phone] Shaikh NANETTE Locke Unavailable [phone] Encounter Details Date Type Department Care Team (Late st Contact Info) Description 03/26/2024 Orders Only [facility] [address] [place] [address] Shaikh Locke MD [address] [place] [address] Social History Tobacco Use Types Packs/Day Years Used Date Smoking Tobacco: Never Passive Smoke Exposure: Never Smokeless Tobacco: Never Alcohol Use Standard Drinks/Week Comments Never 0 (1 standard drink = 0.6 oz pur e alcohol) caffeine Humiliation, Afraid, Rape, and Kick questionnair e [...] the phone with family, friends, or neighbors? More than three times a week 02/18/2023 How often do you get togethe r with friends or relatives? Once a week 02/18/2023 [facility] often [facility] attend [facility] or nondenominational services? 1 to 4 times per year 02/18/2023 Do you belong to any clubs o r organizations such as jew groups, unions, fraternal or athletic groups, or school groups? Yes 02/18/2023 How often do you attend meet ings of the clubs or organizations you belong to? 1 to 4 times per year 02/18/2023 Are you , , di vorced, , never , or living with a partner? 02/18/2023 AUDIT-C Answer Date Recorded Q1: How often do you have a drink containing alcohol? Never 02/18/2023 Q2: How many drinks containi ng alcohol do you have on a typical day when you are drinking? Patient does not drink Q3: How often do you have si x or more drinks on one occasion? Never 02/18/2023 Overall Financial Resource Strain (CARDIA) Answe r Date Recorded How hard is it for you to pa y for the very basics like food, housing, medical care, and heating? Not very hard 02/18/2023 PHQ-2 Answer Date Recorded Patient Health Questionnaire-2 Score 0 03/26/2024 [facility] - Occupational Stress Questionnaire Answer Date Recorded Do you feel stress - tense, restless, nervous, or anxious, or unable to sleep at night because your mind is troubled all the time - these days? Not at all 02/18/2023 Exercise Vital Sign Answer Date Recorde d On average, how many days pe r week do you engage in moderate to strenuous exercise (like a brisk walk)? 1 day 02/18/2023 On average, how many minutes do you engage in exercise at this level? 10 min 02/18/2023 Hunger Vital Sign Answer Date Recorded Within the past 12 months, y ou worried that your food would run out before you got the money to buy more. Never true 02/19/20 23 Within the past 12 months, t he food you bought just didn't last and you didn't have money to get more. Never true 02/18/2023 PRAPARE - Transportation Answer Date Re corded In the past 12 months, has l ack of transportation kept you from medical appointments or from getting medications? No 01/29 In the past 12 months, has l ack of transportation kept you from meetings, work, or from getting things needed for daily living? No 02/18/2023 Housing Stability Vital Sign Answer [...] place to sleep or slept in a care home (including now)? No 02/18/2023 Comments Unknown Sex and Gender Information Value Date Recorded Sex Assigned at Not on file Legal Sex Female 6:48 PM EDT Gender Identity Not on file Sexual Orientation Not on file documented as of this encounter Functional Status * Over the past 2 weeks, how often have you been bothered by any of the following problems? Question Answer Date of Assessment Author Little interest or pleasure in doing things Not at all 03/26/2024 9:21 AM SHAMAT Mary Ellen Bartlett M A Feeling down, depressed, or hopeless Not at all 03/26/2024 9:21 AM EDT Mary Ellen Bartlett M A Patient Health Questionnaire -2 Score 0 03/26/2024 9:21 AM EDT Mary Ellen Bartlett M A * Question Answer Date of Assessment Author Trouble falling or staying asleep, or sleeping too much Not at all 03/26/2024 9:21 AM Shaikh Rodas MD Feeling tired or having leo le energy Not at all 03/26/2024 9:21 AM Shaikh Rodas M D Poor appetite or overeating Not at all 03/26/2024 9: 21 AM Shaikh Rodas MD Feeling bad about yourself - or that you are a failure or have let yourself or your family down Several days 03/26/2024 9:21 AM Shaikh Rodas M D Trouble concentrating on things, such as reading the newspaper or watching television Not at all 03/26/2024 9:21 AM Shaikh Rodas M D Moving or speaking so slowly that other people could have noticed? Or the opposite - being so fidgety or restless that you have been moving around a lot more than usual. Not at all 03/26/2024 9:21 AM Shaikh Rodas MD Thoughts that you would be better off or hurting yourself in some way Not at all 03/26/2024 9:21 AM Shaikh Rodas MD Patient Health Questionnaire -9 Score 1 03/26/2024 9:21 AM Shaikh Rodas M D documented as of this encounter Plan of Treatment Upcoming Encounters Date Type Department Care Team (Late st Contact Info) Description 04/13/2025 2:00 PM EDT Office Visit [facility] [address] [facility] [place] [address] Cassius Patel MD [address] [place] [address] documented as of this encounter Visit Diagnoses Not on filedocumented in this encounter Additional Health Concerns Assessment Noted Time PHQ-9 Depression Total Score: 1 03/26/20 9:21 AM EDT documented as of this encounter Care Teams Salesperson Parts Relationship Specialty Start Date End Date Chuyita Peters MD [address] [place], [place] [id number] PCP - Obie MADSEN 09/30/21 08/29/24 Shaikh Locke MD [address] [place] [phone] PCP - General Internal Medicine 12/25/23 05/06/24 Ray Banda MD [address] [place] [phone] PCP - General Family Medicine 05/07/24 07/15/24 Cassius Patel MD [address] [place] [address] PCP - General Family Medicine 07/16/24 Shaikh Locke MD [address] [place] [phone] PCP - Obie MADSEN 08/30/24 09/29/24 Vlad Banuelos LPN Licensed Practical Nurse Family Medicine 03/18/24 03/26/24 Suzette Maddox NP [address] [place] [address] Nurse Practitioner Family Medicine 05/07/24 07/15/24 Adia Pearson, [facility] Capacity Manager Family Medicine 05/26/24 07/16/24 Adilia Larose [facility] Capacity Manager Family Medicine 07/16/24 Erasmo Cole MD [address] [place] [address] Supervisor [employer] Family Medicine 07/16/24 Saurav Girard MD [address] [place] [phone] Ophthalmology 07/16/24 Suzanna Olmos RN Registered Nurse Family Medicine 07/31/24 Suzanna Olmos, RN Registered Nurse Family Medicine 08/05/24 documented as of this encounter
--- OUTSIDE RECORDS SUMMARY | 2025-02-23 14:02 | XMS_ITS | Clinical Summary ---
Author Organization [facility] Address [address] [place] [address] Care Team Providers Care Electric Fork Operator Name Role Phone Adilia Larose Unavailable [phone] Cassius Patel MD Primary Care Provider Erasmo Johnson MD Unavailable Saurav Girard MD Unavailable Suzanna Olmos RN Unavailable Suzanna Olmos RN Unavailable Allergies Active Allergy Reactions Criticality Noted Date Comments Cefdinir Other 02/15/2023 Nitrofurantoin Other 02/15/2023 Medications atorvastatin (Lipitor) 40 MG tablet Active cholecalciferol (Vitamin D-3) 25 MCG (1000 UT) capsule Take 1,000 Units by mouth Daily OTC Active lisinopril 2.5 MG tabletIndication s:Hypertension Hold if systolic is 100 or less Active spironolactone (Aldactone) 25 MG tablet Take 0.5 tablets by mouth 1 (one) time each day. 8 Active OneTouch Ultra test stripIndications :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 mellitus (HCC) ([facility]/HCC) USE TO TEST BLOOD SUGAR ONCE DAILY 100 strip 3 3 Active ezetimibe (Zetia) 10 MG tablet Take 10 mg by mouth in the morning. 4 03/13/20 25 Active Eliquis 2.5 MG tablet Take 2.5 mg by mouth in the morning and 2.5 mg before bedtime. Active Blood Glucose Monitoring Suppl (Innovative HealthcareTouch Verio) w/Device kitIndications:T ype 2 diabetes mellitus with stage 3b chronic kidney disease, without long-term current use of insulin ([facility]) ([facility]) Check BS bid prn 1 kit 5 Active glucose blood (Innovative HealthcareTouch Verio) test stripIndications :Type 2 diabetes mellitus with stage 3b chronic kidney disease, without long-term current use of insulin ([facility]) ([facility]) Check BS bid prn 100 strip 3 5 Active Lancets ([employer] Delica Plus [id number]) miscIndications: Type 2 diabetes mellitus with stage 3b chronic kidney disease, without long-term current use of insulin ([facility]) ([facility]) Check BS bid prn 100 each 3 5 Active furosemide (Lasix) 20 MG tablet Take 20 mg by mouth if needed Active Bisacodyl (LAXATIVE PO) Take 5 mg by mouth Daily OTC Active carvedilol (Coreg) 3.125 MG tabletIndication s:Chronic systolic heart failure ([facility]) Take 1 tablet (3.125 mg) by mouth in the morning and 1 tablet (3.125 mg) in the evening. Take with meals. 5 11/03/19 26 Active acetaminophen (Tylenol) 325 MG capsuleIndicatio ns:Pain Take 325 mg by mouth every 6 (six) hours if needed for mild pain Active HYDROcodone-acet aminophen ([place]) 5-325 MG tabletIndication s:Chronic pain syndrome Take 1 tablet by mouth Daily as needed for severe pain 30 tablet 5 Active HYDROcodone-acet aminophen ([place]) 5-325 MG tabletIndication s:Chronic pain syndrome Take 1 tablet by mouth Daily as needed for severe pain or moderate pain 30 tablet 5 Active HYDROcodone-acet aminophen ([place]) 5-325 MG tabletIndication s:Chronic pain syndrome Take 1 tablet by mouth Daily as needed for moderate pain 30 tablet 5 Active empagliflozin (Jardiance) 10 MGIndications:Ty pe 2 diabetes mellitus with stage 3b chronic kidney disease, without long-term current use of insulin (HCC) (CMS/HCC) Take 1 tablet (10 mg) by mouth Daily 90 tablet 5 04/19/20 25 Active Active Problems Problem Noted Date Diagnosed Date Chronic constipation 01/19/2025 Polypharmacy 08/01/2024 History of breast cancer 07/28/2024 Overview (07/28/2024): Left Mastectomy 2001 Controlled substance agreement signed 07/28/2024 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 Euvolemic. Uses lasix daily for volume control. Stable. Asymptomatic. Decrease Coreg to 3.125, as BP too low, especially given her age. Assessment & Plan (12/25/2023 10:15 AM EDT): On Coreg, aldactone, jardiance and lisinopri. Euvolemic. Uses lasix daily for volume control. Stable. Asymptomatic. Assessment & Plan (09/25/2023 1:22 PM EST): Mild improvement noted on recent ECHO 40%. On Coreg, aldactone, jardiance and lisinopri. Euvolemic. Uses lasix daily for volume control. Assessment & Plan (02/18/2023 4:03 PM EDT): Per cardiology Primary hypertension 02/11/2023 Assessment & Plan (06/16/2024 12:15 PM EDT): Currently taking carvedilol 3.125mg Lisinopril 2.5mg Checks BP at home; Averages are 110-120s. Denies orthostatic changes, dizziness, cough, shortness of breath, swelling in extremities. Continue current regimen. Given BP log, advised pt to record BP and bring log back with them to next visit. Assessment & Plan (03/26/2024 10:31 AM EDT): Too tightly controlled and low. On GDMT for HFrEF. Decrease coreg to 3.125 mg q12. Monitor BP daily. She may have to be taken off of lisinopril if BP is persistently low and below 100. Assessment & Plan (09/25/2023 1:21 PM EST): Stable. On GDMT for HFrEF. BP is stable. Denies orthostasis. Assessment & Plan (02/18/2023 4:03 PM EDT): Overall stable Hyperlipidemia 02/11/2023 Assessment & Plan (06/16/2024 12:15 PM EDT): Currently taking atorvastatin 40mg Zetia 10mg Most recent lipid panel 03/23- WNL Denies any myalgias. Continue current regimen. Assessment & Plan (03/26/2024 10:32 AM EDT): Check lipid panel, on lipitor/zetia. Assessment & Plan (12/25/2023 10:14 AM EDT): Check lipid panel Assessment & Plan (09/25/2023 1:23 PM EST): Check Lipid panel. On Lipitor for T2 DM and CAD. Assessment & Plan (02/18/2023 4:06 PM EDT): Cont with atorvastatin Ischemic cardiomyopathy 02/11/2023 Assessment & Plan (09/25/2023 1:22 PM EST): Improved EF. On GDMT. Follows Cardiology. Assessment & Plan (02/18/2023 4:03 PM EDT): Per cardiology Lumbosacral spondylosis without myelopathy 02/11 Assessment & Plan (02/18/2023 4:05 PM EDT): Currently stable Chronic pain syndrome 02/11/2023 Presence of cardiac pacemaker 02/11/2023 Assessment & Plan (02/18/2023 4:03 PM EDT): Managed by cardiology Stage 3b chronic kidney disease (HCC) 02/11/2023 Assessment & Plan (06/16/2024 12:17 PM EDT): Lisinopril and Jardiance Follows nephrology: Most recent GFR: 42 Creatinine: 1.24 Avoid nephrotoxic agents Assessment & Plan (12/25/2023 10:15 AM EDT): Due to T2 DM, stable renal function. On Lisinopril, jardiance. Follows Nephrology. Labs 12/21 - reviewed. No sig abnormality noted. Assessment & Plan (09/25/2023 1:21 PM EST): Due to T2 DM, stable renal function. On Lisinopril, jardiance. Follows Nephrology. Assessment & Plan (02/18/2023 4:04 PM EDT): Gfr has been stable will cont to monitor Type 2 diabetes mellitus wit h stage 3b chronic kidney disease, without long-term current use of insulin ([facility]) 02/11/2023 Assessment & Plan (06/16/2024 12:16 PM EDT): Jardiance 10mg Most recent labs: hemoglobin A1C [...] persistent hypoglycemia/hyperglycemia on home glucose monitoring noted. Assessment & Plan (03/26/2024 10:32 AM EDT): On Jardiance. Doing well. No active complaints to offer. Check A1C Assessment & Plan (12/25/2023 10:14 AM EDT): On Jardiance. Doing well. No active complaints to offer. 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 Otherwise, stable gait and no unsteadiness. No need for cane/walker. Other hyperlipidemia 09/25/2023 Routine general medical exam ination at health care facility 02/18/2023 07/16/2024 Assessment & Plan (02/18/2023 4:12 PM EDT): Labs, vaccinations and safety reviewed. Primary malignant neoplasm of breast 11/30/2015 07/28/2024 Heart block 04/30/2013 07/16/2024 Overview (03/26/2024): MOBITZ II S/P PACEMAKER PLACEMENT Encounters Date Type Department Care Team Description 02/18/2025 Patient Outreach [facility] [address] [place] [address] Adilia Larose LSW 02/15/2025 Refill [facility] [address] [place] [address] Cassius Patel MD Type 2 diabetes mellitus with stage 3b chronic kidney disease, without long-term current use of insulin (HCC) ([facility]) 02/02/2025 Patient Outreach [facility] [address] [place] [address] Suzanna Olmos RN 01/19/2025 2:00 PM EDT Office Visit [facility] [address] [place] [address] Cassius Patel MD Chronic constipation (Primary Dx); Chronic pain syndrome; Lumbosacral spondylosis without myelopathy; Controlled substance agreement signed; Type 2 diabetes mellitus with stage 3b chronic kidney disease, without long-term current use of insulin (HCC) ([facility]); Polypharmacy 01/19/2025 Bamboo flowsheet [facility] [address] [place] [address] Cassius Patel MD 01/19/2025 Travel 01/18/2025 Orders Only [facility] [address] [place] [address] Raquel Nraanjo MA Screening mammogram, encounter for; H/O left mastectomy; History of breast cancer 01/15/2025 [facility] [address] [place] [address] Adilia Larose LSW 01/12/2025 Travel 01/01/2025 Patient Outreach [facility] [address] [place] [address] Suzanna Olmos, ISABELLE 12/15/2024 Patient Outreach [facility] [address] [place] [address] Thuan AdiliaSANDRA davila 12/03/2024 Patient Outreach [facility] [address] [place] [address] Suzanna Olmos, RN from Last 3 Months Immunizations Immunization Administration Dates Next Due Influenza, High Dose Seasona l, Preservative Free 08/05/2024,07/05/2017,07/10/2016,10/04,06/26/2013 Influenza, High-dose Seasona l, Quadrivalent, Preservative Free 07/19/2022,08/04/2021,07/05/2017 Influenza, Seasonal, Quadriv alent, Adjuvanted 07/11/2023,08/04/2021,06/27/2020 Influenza, injectable, quadr ivalent, preservative free 06/27/2020,06/23/2019,06/23/2018 Influenza, seasonal, injecta ble, preservative free 06/28/2020 Influenza, seasonal, intrade rmal, preservative free 06/30/2014 Influenza, trivalent, adjuvanted 06/23/2019 Moderna SARS-CoV-2 Booster Vaccination Pneumococcal Conjugate PCV 13 12/23/2020, 015,04/21/2015 Pneumococcal Polysaccharide PPSV23 05/26/2013 RSV, recombinant, protein prescott bunit RSVpreF, adjuvant reconstitu, 120mcg/0.5mL, PF (Arexvy) 08/20/2024 SARS-CoV-2, Unspecified 04/11/2022 Tdap 01/08/2024 Zoster, Recombinant 03/23/2019,12/18/2018 Family History Medical History Relation Name Comments No Known Problems Daughter 6 daughter (s) Heart disease Father Seth Quinones 98 yrs Heart disease Mother Lida Quinones Relation Name Status Comments Daughter Alive Father Seth Quinones Mother Lida Quinones Social History Tobacco Use Types Packs/Day Years Used Date Smoking Tobacco: Never Passive Smoke Exposure: Never Smokeless Tobacco: Never Tobacco Cessation:Counseling Given: Yes Alcohol Use Standard Drinks/Week Comments Never 0 [...] week 06/16/2024 How often do you attend chur or shinto services? More than 4 times per year 06/16/2024 Do you belong to any clubs o r organizations such as evangelical groups, unions, fraternal or athletic groups, or [...] Recorded Patient Health Questionnaire-2 Score 0 07/14/2024 [facility] - Occupational Stress Questionnaire Answer Date Recorded [...] place to sleep or slept in a jail (including now)? No 02/18/2023 Housing Stability Vital Sign Answer Jake e Recorded In the last 12 months, was t here a time when you were not able to pay the mortgage or rent on time? No 06/16/2024 Number of Times Moved in the Last Year Not on fi le 06/16/2024 At any time in the past 12 m [facility], were you homeless or living in a jail (including now)? No 06/16/2024 Comments No Sex and Gender Information Value Date Recorded Sex Assigned at Not on file Legal Sex Female 6:48 PM EDT Gender Identity Not on file Sexual Orientation Not on file Last Filed Vital Signs Vital Sign Reading Time Taken Comments Blood Pressure 120/70 07/16/2024 2:22 PM EDT Pulse 66 10/28/2024 2:02 PM EST Temperature 36.2 C (97.2 F) 06/16/2024 9:29 AM EDT Respiratory Rate 16 08/13/2023 9:05 AM EST Oxygen Saturation 97% 10/28/2024 2:02 PM EST Inhaled Oxygen Concentration - - Weight 65.8 kg (145 lb) 01/19/2025 1:42 PM EDT Height 162.6 cm (5' 4 ) 01/19/2025 1:42 PM EDT Body Mass Index 24.89 01/19/2025 1:42 PM EDT Plan of Treatment Upcoming Encounters Date Type Department Care Team (Late st Contact Info) Description 04/13/2025 2:00 PM EDT Office Visit [facility] [address] [place] [address] Cassius Patel MD [address] [place] [address] [address] [place] [address] Health Maintenance Due Date Last Done Comments Diabetes: Retinopathy Screening 04/16/2025 04/16/2024, 10/16/2023, 01/29/2023, Additional history exists Diabetes: Urine Protein Screening 06/24/2025 06/24/2024, 06/24/2024, 12/17/2023, Additional history exists Diabetes: Hemoglobin A1C 07/15/2025 025, 03/26/2024, 03/26/2024, Additional history exists Pneumococcal Vaccine: 65+ Years Completed 12/23/2020, 04/25/2015, 04/21/2015, Additional history exists Influenza Vaccine Completed 08/05/2024, , 07/19/2022, Additional history exists Procedures Procedure Name Priority Date/Time Associated Diagnosis Comments HEMOGLOBIN A1C Routine 01/13/2025 8:05 AM EDT Type 2 diabetes mellitus with stage 3b chronic kidney disease, without long-term current use of insulin (HCC) ([facility]) DIABETIC RETINOPATHY SCREENING - OU - BOTH EYES Routine 04/16/2024 9:13 AM EDT MICROALBUMIN / CREATININE URINE RATIO Routine 08/20/2022 from Last 3 Months or Most Recently Relevant to Health Maintenance Results * (ABNORMAL) Hemoglobin A1c (01/13/2025 8:05 AM EDT) Hemoglobin A1C 7.1(H) <5.7 % [facility] Comment: For someone without known diabetes, a hemoglobin A1c value of 6.5% or greater indicates that they may have diabetes and this should be confirmed with a follow-up test. For someone with known diabetes, a value <7% indicates that their diabetes is well controlled and a value greater than or equal to 7% indicates suboptimal control. A1c targets should be individualized based on duration of diabetes, age, comorbid conditions, and other considerations. Currently, no consensus exists regarding use of hemoglobin A1c for diagnosis of diabetes for children. Blood Venous blood specimen / Unknown 01/13/2025 8:05 AM EDT 01/13/2025 3:36 PM EDT Narrative Resulting Agency Comment Performing Organization Information Site ID: [id number] Name: [facility] Address: [address] [place] [address], [address] [place] [id number] Director: Dami Rossi MD us Cassius Patel MD LAB BLOOD ORDERABLES Final R esult [facility] * Diabetic Retinopathy Screening - OU - Both Eyes (04/16/2024 9:13 AM EDT) Anatomical Region Laterality Modality Head Other us Chuyita Peters MD OPHTH PHOTOGRAPHY Final Result * Microalbumin / creatinine urine ratio (08/20/2022) CREATININE, RANDOM URINE 21 20 - 275 [facility] ALBUMIN, URINE 0.3 See Note: [facility] Comment: Reference Range: Reference Range Not established MICROALBUMIN/CREAT ININE RATIO, RANDOM URINE 14 <30 [facility] Comment: The ADA defines abnormalities in albumin excretion as follows: Albuminuria Category Result (mcg/mg creatinine) Normal to Mildly increased <30 Moderately increased 30-299 Severely increased > OR = 300 The ADA recommends that at least two of three specimens collected within a 3-6 month period be abnormal before considering a patient to be within a diagnostic category. 08/20/2022 Chuyita Peters MD LAB URINE ORDERABLES Final Resul t [facility] from Last 3 Months or Most Recently Relevant to Health Maintenance Insurance [employer] Advance Directives Documents on File Type Date Recorded Patient Bolt Loader Expl anation Advance Directives and Living Will 07/28/2024 3:34 PM 2010-08-31 living Wi ll * DNR (Latest Code Status on File) Date Activated Date Inactivated Comments 05/29/2024 8:16 AM Care Teams Electric Fork Operator Relationship Specialty Start Date End Date Cassius Patel MD [address] [address] PCP - General Family Medicine 07/16/24 Adilia Larose LSW Emission Technician Family Medicine 07/16/24 Erasmo Johnson MD [address] [place] [phone] Network Contract Manager Family Medicine 07/16/24 Saurav Girard MD [address] [place] [phone] Ophthalmology 07/16/24 Suzanna Olmos, RN Registered Nurse Family Medicine 07/31/24 Suzanna Olmos, RN Registered Nurse Family Medicine 08/05/24
--- OUTSIDE RECORDS SUMMARY | 2025-02-23 14:02 | XMS_ITS | Encounter Summary ---
Author Organization [facility] Address [address] [place] [address] Care Team Providers Care Rn Production Name Role Phone Chuyita Peters MD Unavailable Chuyita Peters MD Primary Care Provider [phone] Shaikh NANETTE Locke Primary Care Provider [phone] Shaikh NANETTE Locke Primary Care Provider [phone] Vlad Banuelos [employer] BACK FEEDER Unavailable Unavailable Ray Banda MD Primary Care Provider [phone] Suzette Maddox MOLD TOOLING TECHNICIAN Unavailable Adia Pearson COKE WHEELER Unavailable [phone] Adilia Larose COKE WHEELER Unavailable [phone] Cassius Patel MD Primary Care Provider [phone] Erasmo Cole MD Unavailable [phone] Saurav Girard MD Unavailable [phone] Suzanna Olmos RN Unavailable [phone] Suzanna Olmos RN Unavailable [phone] Shaikh NANETTE Locke Unavailable [phone] Encounter Details Date Type Department Care Team (Late st Contact Info) Description 02/27/2023 Abstract [facility] [address] [facility] [place] [address] Chuyita Peters MD [address] [place] [address] Social History Tobacco Use Types Packs/Day Years [...] week 02/18/2023 How often do you attend chur or restorationist services? 1 to 4 times per year 02/18/2023 Do you belong to any clubs o r organizations such as pentecostal groups, unions, fraternal or athletic groups, or [...] you are drinking? Patient does not drink 3 Q3: How often do you have si x or more drinks on one occasion? Never 02/18/2023 Overall Financial Resource Strain (CARDIA) Answe r Date Recorded How hard is it for you to pa y for the very basics like food, housing, medical care, and heating? Not very hard 02/18/2023 [facility]ational Stress Questionnaire Answer Date Recorded [...] place to sleep or slept in a chcf (including now)? No 02/18/2023 Comments Unknown Sex and Gender Information Value Date Recorded Sex Assigned at Not on file Legal Sex Female 6:48 PM EDT Gender Identity Not on file Sexual Orientation Not on file COVID-19 Exposure Response Date Recorded In the last 10 days, have yo u been in contact with someone who was confirmed or suspected to have Coronavirus/COVID-19? No / Unsure 02/18/2023 10:07 AM EDT documented as of this encounter Plan of Treatment Upcoming Encounters Date Type Department Care Team (Late st Contact Info) Description 04/13/2025 2:00 PM EDT Office Visit [facility] [address] [place] [address] Cassius Patel MD [address] [place], [place] [id number] documented as of this encounter Visit Diagnoses Not on filedocumented in this encounter Care Teams Rn Production Relationship Specialty Start Date End Date Chuyita Peters MD [address] [place] [address] PCP - Obie MADSEN 09/30/21 08/29/24 Chuyita Peters MD [address] [place] [address] PCP - General Family Medicine 02/18/23 03/26/23 Shaikh Locke MD [address] [place] [address] PCP - General Internal Medicine 03/27/23 12/24/23 Shaikh Locke MD [address] [place] [phone] PCP - General Internal Medicine 12/25/23 05/06/24 Ray Banda MD [address] [place] [phone] PCP - General Family Medicine 05/07/24 07/15/24 Cassius Patel MD [address] [place] [address] PCP - General Family Medicine 07/16/24 Shaikh Locke MD [address] [place] [address] PCP - Obie MADSEN 08/30/24 09/29/24 Vlad Banuelos LPN Licensed Practical Nurse Family Medicine 03/18/24 03/26/24 Suzette Maddox NP [address] [place] [address] Nurse Practitioner Family Medicine 05/07/24 07/15/24 Adia Pearson [facility] Tax Services Intern Family Medicine 05/26/24 07/16/24 [facility] Tax Services Intern Family Medicine 07/16/24 Erasmo Cole MD [address] [place] [phone] Technical Service Representative Family Medicine 07/16/24 Saurav Girard MD [address] [place] [address] Ophthalmology 07/16/24 Suzanna Olmos, RN Registered Nurse Family Medicine 07/31/24 Suzanna Olmos, RN Registered Nurse Family Medicine 08/05/24 documented as of this encounter
--- OUTSIDE RECORDS SUMMARY | 2025-02-23 14:02 | XMS_ITS | Encounter Summary ---
Author Organization [facility] Address [address] [facility] [place] [address] Care Team Providers Care Centerless Grinder Name Role Phone Chuyita Peters MD Unavailable Shaikh NANETTE Locke Primary Care Provider Ray Banda MD Primary Care Provider Suzette Maddox THREAT MONITORING ANALYST Unavailable Adia Pearson WET ROOM WORKER Unavailable Adilia Larose WET ROOM WORKER Unavailable Cassius Patel MD Primary Care Provider Erasmo Cole MD Unavailable Saurav Girard MD Unavailable Suzanna Olmos RN Unavailable [phone] Suzanna Olmos RN Unavailable [phone] Shaikh NANETTE Locke Unavailable [phone] Encounter Details Date Type Department Care Team (Late st Contact Info) Description 04/20/2024 Orders Only [facility] [address] [place] [address] Chuyita Peters MD [address] [place] [address] Social History Tobacco Use Types Packs/Day Years [...] How often do you attend chur or latter day services? 1 to 4 times per year 02/18/2023 Do you belong to any clubs o r organizations such as tenriism groups, unions, fraternal or athletic groups, or [...] Recorded Patient Health Questionnaire-2 Score 0 03/26/2024 [facility] of Occupat ional [facility] - Occupational Stress Questionnaire Answer Date Recorded [...] place to sleep or slept in a intermediate (including now)? No 02/18/2023 Comments Unknown Sex [...] EDT Office Visit [facility] [place] [address] [place] [address] Cassius Patel MD [address] [place] [address] (Fax) documented as of this encounter Procedures Procedure Name Priority Date/Time Associated Diagnosis Comments DIABETIC RETINOPATHY SCREENING - OU - BOTH EYES Routine 04/16/2024 9:13 AM EDT documented in this encounter Results * Diabetic Retinopathy Screening - OU - Both Eyes (04/16/2024 9:13 AM EDT) Anatomical Region Laterality Modality Head Other us Chuyita Peters MD OPHTH PHOTOGRAPHY Final Result documented in this encounter Visit Diagnoses Not on filedocumented in this encounter Additional Health Concerns Assessment Noted Time PHQ-9 Depression Total Score: 1 03/26/20 24 9:21 AM EDT documented as of this encounter Care Teams Centerless Grinder Relationship Specialty Start Date End Date Chuyita Peters MD [address] [place] [address] PCP - Obie MADSEN 09/30/21 08/29/24 Shaikh Locke MD [address] [place] [address] PCP - General Internal Medicine 12/25/23 05/06/24 Ray Banda MD [address] [place] [address] PCP - General Family Medicine 05/07/24 07/15/24 Cassius Patel MD [address] [place] [address] PCP - General Family Medicine 07/16/24 Shaikh Locke MD [address] [place] [address] PCP - Obie MADSEN 08/30/24 09/29/24 Suzette Maddox NP [address] [place] [address] Nurse Practitioner Family Medicine 05/07/24 07/15/24 Adia Pearson [facility] Elevator Installer Apprentice Family Medicine 05/26/24 07/16/24 Adilia Larose [facility] Elevator Installer Apprentice Family Medicine 07/16/24 Erasmo Cole MD [address] [place] [address] Rf Technician Family Medicine 07/16/24 Saurav Girard MD [address] [place] [address] Ophthalmology 07/16/24 Suzanna Olmos RN Registered Nurse Family Medicine 07/31/24 Suzanna Olmos RN Registered Nurse Family Medicine 08/05/24 documented as of this encounter
--- OUTSIDE RECORDS SUMMARY | 2025-02-23 14:02 | XMS_ITS | Encounter Summary ---
Author Organization [facility] Address [address] [place] [address] Care Team Providers Care Strap Sewer Name Role Phone Chuyita Peters MD Unavailable Chuyita Peters MD Primary Care Provider [phone] Shaikh NANETTE Locke Primary Care Provider [phone] Shaikh NANETTE Locek Primary Care Provider [phone] Vlad Banuelos SCHOOL BUS INSPECTOR Unavailable Unavailable Ray Banda MD Primary Care Provider [phone] Suzette Maddox SAFETY LEAD Unavailable Adia Pearson SHAREPOINT SOLUTIONS DEVELOPER Unavailable [phone] Adilia Larose SHAREPOINT SOLUTIONS DEVELOPER Unavailable [phone] Cassius Patel MD Primary Care Provider [phone] Erasmo Cole MD Unavailable [phone] Saurav Girard MD Unavailable [phone] Suzanna Olmos RN Unavailable [phone] Suzanna Olmos RN Unavailable [phone] Shaikh NANETTE Locke Unavailable [phone] Encounter Details Date Type Department Care Team (Late st Contact Info) Description 01/31/2023 Abstract [facility] [address] [place] [address] Chuyita Peters MD [address] [place], [place] [id number] Social History Tobacco Use Types Packs/Day Years Used Date Smoking Tobacco: Never Smokeless Tobacco: Never Tobacco Cessation:Counseling Given: Not Answered Alcohol Use Standard Drinks/Week Comments Never 0 (1 standard drink = 0.6 oz pur e alcohol) caffeine Comments Unknown Sex and Gender Information Value Date Recorded Sex Assigned at Not on file Legal Sex Female 6:48 PM EDT Gender Identity Not on file Sexual Orientation Not on file documented as of this encounter Plan of Treatment Upcoming Encounters Date Type Department Care Team (Late Contact Info) Description 04/13/2025 2:00 PM EDT Office Visit [facility] [address] [place] [address] Cassius Patel MD [address] [facility] [address] [place] [address] documented as of this encounter Visit Diagnoses Not on filedocumented in this encounter Care Teams Strap Sewer Relationship Specialty Start Date End Date Chuyita Peters MD [address] [place], [place] [phone] PCP - Obie MADSEN 09/30/21 08/29/24 Chuyita Peters MD [address] [place], [place] [phone] PCP - General Family Medicine 02/18/23 03/26/23 Shaikh Locke MD [address] [place] [address] PCP - General Internal Medicine 03/27/23 12/24/23 Shaikh Locke MD [address] [place] [address] PCP - General Internal Medicine 12/25/23 05/06/24 Ray Banda MD [address] [place] [address] PCP - General Family Medicine 05/07/24 07/15/24 Cassius Patel MD [address] [place] [address] [place] [address] PCP - General Family Medicine 07/16/24 Shaikh Locke MD [address] [place] [address] PCP - Obie MADSEN 08/30/24 09/29/24 Vlad Banuelos LPN Licensed Practical Nurse Family Medicine 03/18/24 03/26/24 Suzette Maddox NP [address] [place] [address] Nurse Practitioner Family Medicine 05/07/24 07/15/24 Adia Pearson, [facility] Core Cleaner Family Medicine 05/26/24 07/16/24 Adilia Larose, [facility] Core Cleaner Family Medicine 07/16/24 Erasmo Cole MD [facility] [place] [address] Brewery Cellar Worker Family Medicine 07/16/24 Saurav Girard MD [address] [place] [address] [id number] Ophthalmology 07/16/24 Suzanna Olmos RN Registered Nurse Family Medicine 07/31/24 Suzanna Olmos RN Registered Nurse Family Medicine 08/05/24 documented as of this encounter
--- OUTSIDE RECORDS SUMMARY | 2025-02-23 14:02 | XMS_ITS | Encounter Summary ---
Author Organization [facility] Address [address] [place] [address] Care Team Providers Care Sales Performance Analyst Name Role Phone Chuyita Peters MD Unavailable Shaikh NANETTE Locke Primary Care Provider [phone] Shaikh NANETTE Locke Primary Care Provider [phone] Vlad Banuelos SIGNALS COLLECTOR/ANALYST Unavailable Unavailable Ray Banda MD Primary Care Provider [phone] Suzette Maddox COOK ENCHILADA Unavailable Adia Pearson MANAGER LANDSCAPE Unavailable [phone] Adilia Larose MANAGER LANDSCAPE Unavailable [phone] Cassius Patel MD Primary Care Provider Devin Kelsey MD Unavailable [phone] Saurav Girard MD Unavailable [phone] Suzanna Olmos RN Unavailable [phone] Suzanna Olmos RN Unavailable [phone] Shaikh NANETTE Locke Unavailable [phone] Encounter Details Date Type Department Care Team (Late st Contact Info) Description 08/30/2023 Clinisync Result Encounter [facility] External Department Unsolicited Provider, Generic External Data Social History Tobacco Use Types Packs/Day Years [...] 02/18/2023 How often do you attend chur ch or anabaptist services? 1 to 4 times per year 02/18/2023 Do you belong to any clubs o r organizations such as religious groups, unions, fraternal or athletic groups, or [...] care, and heating? Not very hard 02/18/2023 [facility] [place] of Occupat ional Health - Occupational Stress [...] place to sleep or slept in a correction (including now)? No 02/18/2023 Comments Unknown Sex [...] Visit [facility] [address] [place] [address] Cassius Patel MD [address] [place] [address] documented as of this encounter Procedures Procedure Name Priority Date/Time Associated Diagnosis Comments CA ECHO DOPPLER COMPLETE 08/30/2023 8:01 PM EST documented in this encounter Results * CA ECHO DOPPLER COMPLETE (08/30/2023 8:01 PM EST) Anatomical Region Laterality Modality Other 08/30/2023 8:01 PM EST Narrative 08/30/2023 8:01 PM EST [address] [address] Cardiology Report Signed Patient: Fede Hood MR#: [id number] : 1935 Acct:[id number] Age/Sex: 87 / F ADM Date: 08/30/23 Loc: CARD Attending Dr: DEVIN KELSEY Ordering Physician: DEVIN KELSEY Date of Service: 08/30/23 Procedure(s): CA echo doppler complete Accession Number(s): [id number] cc: Patient Name: FEDE HOOD MR#: [id number] : 1935 Exam Date: 08/30/2023 Ordering Doctor: DR DEVIN KELSEY M.D. ECHOCARDIOGRAM REPORT PROCEDURE: CA ECHO DOPPLER COMPLETE INDICATIONS: Congestive heart failure, pacemaker, left mastectomy, open heart surgery, diabetes COMPARISON: None. DESCRIPTION: COMPLETE ECHOCARDIOGRAM Real-time transthoracic echocardiography with 2D, M-mode, spectral and color flow Doppler performed. QUALITY: Technical quality was good. 64 , 140# , BSA LEFT VENTRICLE: Mild dilatation. Normal left ventricular wall thickness. Systolic function is difficult to assess due to poor sound transmission but appears moderately reduced. LV EF: Moderately reduced left ventricular ejection fraction, (35-40%). DIASTOLIC: Diastolic function is indeterminate. ATRIAL SEPTUM: LEFT ATRIUM: Mild dilatation. RIGHT ATRIUM: Mild dilatation. RIGHT VENTRICLE: Normal chamber size. Normal systolic function. Pacer wire present. TRICUSPID VALVE: Normal mobility and thickness. Status post ring repair with no stenosis with mild regurgitation. No evidence of pulmonary hypertension. RVSP 27 mmHg MITRAL VALVE: Mildly thickened with normal mobility. No evidence of mitral valve stenosis. Mild mitral annular calcification. Mild mitral regurgitation. AORTIC VALVE: Normal trileaflet appearance. Normal leaflet mobility. No evidence of aortic valve stenosis. Multifocal calcifications. Mild aortic regurgitation. AORTIC ROOT: Normal diameter and appearance. PULMONIC VALVE: Normal thickness and mobility. No stenosis. Trivial regurgitation. PERICARDIUM: No evidence of pericardial effusion. IVC: Collapses with inspirations. IVC is normal in size. PLEURA: CONCLUSION: 1. The left ventricle is mildly dilated. Systolic function is difficult to assess due to poor sound transmission but appears moderately reduced. LVEF is 35 to 40%. 2. Normal right ventricular size and systolic function. 3. Mild biatrial dilatation. 4. Mild tricuspid, mitral and aortic regurgitation. 5. Normal right-sided pressures. 6. Consider a MUGA scan for further assessment of the left ventricular systolic function. Adult Echocardiography Procedure Report Left Ventricle LVEDD (3.7 - 5.6 cm): 5.09 cm LVESD (2.2 - 4.0 cm): 3.87 cm LVIVS thickness (0.6 - 1.2 cm): 0.53 cm LVPW thickness (0.5 - 1.0 cm): 0.60 cm e': 0.07 m/s E - e': 9.20 LVOT Max Gradient: 2.60 mm[Hg] LVOT Area (cm2): 0.81 m/s Peak Velocity (LVOT): 0.81 m/s Mean Velocity (LVOT): 0.56 m/s LVOT Diameter 2.01 cm Left Atrium LA Volume Index (2D A2C): 25.30 ml/m2 Left Atrium Systolic Dimension: 3.57 cm Mitral Valve MV E to A Ratio: 0.97 Mitral Valve A-Wave Peak Velocity: 0.66 m/s Mitral Valve E-Wave Peak Velocity: 0.65 m/s Right Ventricle Aorta AO Root Diam: 3.19 cm Ascending Ao Diam: 2.84 cm Aortic Valve AoV Area (Peak Erasmo): 2.39 cm2, 2.39 cm2 AoV Area (VTI): 2.38 cm2, 2.38 cm2 Peak Velocity(Antegrade Flow): 1.06 m/s Peak Gradient(Antegrade Flow): 4.53 mm[Hg] Mean Velocity(Antegrade Flow): 0.77 m/s Mean Gradient(Antegrade Flow): 2.63 mm[Hg] Velocity Time Integral: 23.85 cm Tricuspid Valve Peak Velocity (Regurgitant Flow): 2.29 m/s, 2.46 m/s Pulmonic Valve Mean Gradient: 2.01 mm[Hg] Mean Velocity: 0.67 m/s Peak Velocity: 1.05 m/s, 0.87 m/s Peak Gradient: 3.02 mm[Hg], 4.38 mm[Hg] Right Atrium Right Atrium Systolic Pressure: 41.97 ml, 41.97 ml Dictated by: Devin Kelsey M.D. on 08/30/2023 at 19:51 Approved by: Devin Kelsey M.D. on 08/30/2023 at 20:01 Dictated By: DEVIN KELSEY Signed By: 08/30/232002 DD/ 00 TD/TT: Tiller Worker: Procedure Note Radiology, Radiologist, MD - 08/30/2023 [place] [address] Cardiology Report Signed Patient: Fede Hood AMR#: [id number] : 1935cct:[id number] Age/Sex: 87 / FADM Date: 08/30/23 Loc: CARD Attending Dr: DEVIN KELSEY Ordering Physician: DEVIN KELSEY Date of Service: 08/30/23 Procedure(s): CA echo doppler complete Accession Number(s): [id number] cc: Patient Name: FEDE HOOD MR#: [id number] : 1935 Exam Date: 08/30/2023 Ordering Doctor: DR DEVIN KELSEY M.D. ECHOCARDIOGRAM REPORT PROCEDURE: CA ECHO DOPPLER COMPLETE INDICATIONS: Congestive heart failure, pacemaker, left mastectomy,open heart surgery, diabetes COMPARISON: None. DESCRIPTION: COMPLETE ECHOCARDIOGRAM Real-time transthoracic echocardiography with 2D, M-mode, spectral and color flow Dopplerperformed. QUALITY: Technical quality was good. 64 , 140# , BSA LEFT VENTRICLE: Mild dilatation. Normal left ventricular wallthickness. Systolic function is difficult to assess due to poor sound transmissionbut appears moderately reduced. LV EF: Moderately reduced left ventricular ejection fraction,(35-40%). DIASTOLIC: Diastolic function is indeterminate. ATRIAL SEPTUM: LEFT ATRIUM: Mild dilatation. RIGHT ATRIUM: Mild dilatation. RIGHT VENTRICLE: Normal chamber size. Normal systolic function.Pacer wire present. TRICUSPID VALVE: Normal mobility and thickness. Status post ringrepair with no stenosis with mild regurgitation. No evidence of pulmonary hypertension. RVSP 27 mmHg MITRAL VALVE: Mildly thickened with normal mobility. No evidence of mitral valve stenosis. Mild mitral annular calcification. Mild mitral regurgitation. AORTIC VALVE: Normal trileaflet appearance. Normal leaflet mobility.No evidence of aortic valve stenosis. Multifocal calcifications. Mild aortic regurgitation. AORTIC ROOT: Normal diameter and appearance. PULMONIC VALVE: Normal thickness and mobility. No stenosis. Trivial regurgitation. PERICARDIUM: No evidence of pericardial effusion. IVC: Collapses with inspirations. IVC is normal in size. PLEURA: CONCLUSION: 1. The left ventricle is mildly dilated. Systolic function is difficultto assess due to poor sound transmission but appears moderately reduced.LVEF is 35 to 40%. 2. Normal right ventricular size and systolic function. 3. Mild biatrial dilatation. 4. Mild tricuspid, mitral and aortic regurgitation. 5. Normal right-sided pressures. 6. Consider a MUGA scan for further assessment of the left ventricular systolic function. Adult Echocardiography Procedure Report Left Ventricle LVEDD (3.7 - 5.6 cm): 5.09 cm LVESD (2.2 - 4.0 cm): 3.87 cm LVIVS thickness (0.6 - 1.2 cm): 0.53 cm LVPW thickness (0.5 - 1.0 cm): 0.60 cm e': 0.07 m/s E - e': 9.20 LVOT Max Gradient: 2.60 mm[Hg] LVOT Area (cm2): 0.81 m/s Peak Velocity (LVOT): 0.81 m/s Mean Velocity (LVOT): 0.56 m/s LVOT Diameter 2.01 cm Left Atrium LA Volume Index (2D A2C): 25.30 ml/m2 Left Atrium Systolic Dimension: 3.57 cm Mitral Valve MV E to A Ratio: 0.97 Mitral Valve A-Wave Peak Velocity: 0.66 m/s Mitral Valve E-Wave Peak Velocity: 0.65 m/s Right Ventricle Aorta AO Root Diam: 3.19 cm Ascending Ao Diam: 2.84 cm Aortic Valve AoV Area (Peak Erasmo): 2.39 cm2, 2.39 cm2 AoV Area (VTI): 2.38 cm2, 2.38 cm2 Peak Velocity(Antegrade Flow): 1.06 m/s Peak Gradient(Antegrade Flow): 4.53 mm[Hg] Mean Velocity(Antegrade Flow): 0.77 m/s Mean Gradient(Antegrade Flow): 2.63 mm[Hg] Velocity Time Integral: 23.85 cm Tricuspid Valve Peak Velocity (Regurgitant Flow): 2.29 m/s, 2.46 m/s Pulmonic Valve Mean Gradient: 2.01 mm[Hg] Mean Velocity: 0.67 m/s Peak Velocity: 1.05 m/s, 0.87 m/s Peak Gradient: 3.02 mm[Hg], 4.38 mm[Hg] Right Atrium Right Atrium Systolic Pressure: 41.97 ml, 41.97 ml Dictated by: Devin Kelsey M.D. on 08/30/2023 at 19:51 Approved by: Devin Kelsey M.D. on 08/30/2023 at 20:01 Dictated By: DEVIN KELSEY Signed By:08/30/232002 DD/ 00 TD/TT: Tiller Worker: us Generic External Data Provider [facility] Final Result documented in this encounter Visit Diagnoses Not on filedocumented in this encounter Care Teams Sales Performance Analyst Relationship Specialty Start Date End Date Chuyita Peters MD [address] [place] [address] PCP - Obie MADSEN 09/30/21 08/29/24 Shaikh Locke MD [address] [place] [address] PCP - General Internal Medicine 03/27/23 12/24/23 Shaikh Locke MD [address] [place] [address] PCP - General Internal Medicine 12/25/23 05/06/24 Ray Banda MD [address] [place] [address] PCP - General Family Medicine 05/07/24 07/15/24 Cassius Patel MD [address] [facility] [place] [address] PCP - General Family Medicine 07/16/24 Shaikh Locke MD [address] [place] [address] PCP - Obie MADSEN 08/30/24 09/29/24 Vlad Banuelos LPN Licensed Practical Nurse Family Medicine 03/18/24 03/26/24 Suzette Maddox NP [address] [place] [address] Nurse Practitioner Family Medicine 05/07/24 07/15/24 Adia Pearson, [facility] Purification Director Family Medicine 05/26/24 07/16/24 Adilia Larose, [facility] Purification Director Family Medicine 07/16/24 Devin Kelsey MD [address] [place] [address] Prototyper Family Medicine 07/16/24 Saurav Girard MD [address] [place] [address] Ophthalmology 07/16/24 Suzanna Olmos, RN Registered Nurse Family Medicine 07/31/24 Suzanna Olmos RN Registered Nurse Family Medicine 08/05/24 documented as of this encounter
--- OUTSIDE RECORDS SUMMARY | 2025-02-23 14:02 | XMS_ITS | Encounter Summary ---
Author Organization [facility] Address [address] [place] [address] Care Team Providers Care Claim Review Medical Director Name Role Phone Chuyita Peters MD Unavailable Shaikh NANETTE Locke Primary Care Provider [phone] Shaikh NANETTE Locke Primary Care Provider [phone] Vlad Banuelos SCRIBING MACHINE OPERATOR Unavailable Unavailable Ray Banda MD Primary Care Provider [phone] Suzette Maddox SCHOOL COORDINATOR Unavailable [phone] Adia Pearson CORPORATE JOB TITLES Unavailable Adilia Larose CORPORATE JOB TITLES Unavailable [phone] Cassius Patel MD Primary Care Provider Erasmo Cole MD Unavailable [phone] Saurav Girard MD Unavailable Suzanna Olmos RN Unavailable [phone] Suzanna Olmos RN Unavailable [phone] Shaikh NANETTE Locke Unavailable [phone] Encounter Details Date Type Department Care Team (Late st Contact Info) Description 10/18/2023 Orders Only [facility] [address] [place] [address] [facility] [place] [address] Chuyita Peters MD [address] [facility] [place] [address] Social History Tobacco Use Types Packs/Day Years [...] week 02/18/2023 How often do you attend [facility] or anglican services? 1 to 4 times per year 02/18/2023 Do you belong to any clubs o r organizations such as zoroastrian groups, unions, fraternal or athletic groups, or [...] care, and heating? Not very hard 02/18/2023 [facility] - Occupational Stress Questionnaire [...] a skilled nursing (including now)? No 02/18/2023 Comments Unknown Sex [...] Visit [facility] [address] [place] [address] Cassius Patel MD [address] [facility] [address] [place] [address] documented as of this encounter Procedures Procedure Name Priority Date/Time Associated Diagnosis Comments DIABETIC RETINOPATHY SCREENING - OU - BOTH EYES Routine 10/16/2023 11:51 AM EST documented in this encounter Results * Diabetic Retinopathy Screening - OU - Both Eyes (10/16/2023 11:51 AM EST) Anatomical Region Laterality Modality Head Other us Chuyita Peters MD OPHTH PHOTOGRAPHY Final Result documented in this encounter Visit Diagnoses Not on filedocumented in this encounter Care Teams Claim Review Medical Director Relationship Specialty Start Date End Date Chuyita Petres MD [address] [place] [address] PCP - Obie MADSEN 09/30/21 08/29/24 Shaikh Locke MD [address] [place] [address] PCP - General Internal Medicine 03/27/23 12/24/23 Shaikh Locke MD [address] [place] [address] PCP - General Internal Medicine 12/25/23 05/06/24 Ray Banda MD [address] [place] [address] PCP - General Family Medicine 05/07/24 07/15/24 Cassius Patel MD [address] [place] [address] PCP - General Family Medicine 07/16/24 Shaikh Locke MD [address] [place] [address] PCP - Obie MADSEN 08/30/24 09/29/24 Vlad Banuelos LPN Licensed Practical Nurse Family Medicine 03/18/24 03/26/24 Suzette Maddox NP [address] [place] [address] Nurse Practitioner Family Medicine 05/07/24 07/15/24 Adia Pearson [facility] Carbon Furnace Operator Family Medicine 05/26/24 07/16/24 [facility] Carbon Furnace Operator Family Medicine 07/16/24 Erasmo Cole MD [address] [place] [address] Cathode Builder Family Medicine 07/16/24 Saurav Girard MD [address] [place] [address] Ophthalmology 07/16/24 Suzanna Olmos, ISABELLE Registered Nurse Family Medicine 07/31/24 Suzanna Olmos RN Registered Nurse Family Medicine 08/05/24 documented as of this encounter
--- OUTSIDE RECORDS SUMMARY | 2025-02-23 14:02 | XMS_ITS | Encounter Summary ---
Author Organization [facility] Address [address] [place] [address] Care Team Providers Care Pelletizer Tender Name Role Phone Chuyita Peters MD Unavailable Chuyita Peters MD Primary Care Provider [phone] Shaikh NANETTE Locke Primary Care Provider [phone] Shaikh NANETTE Locke Primary Care Provider [phone] Vlad Banuelos SKIN PASS OPERATOR Unavailable Unavailable Ray Banda MD Primary Care Provider [phone] Suzette Maddox PAPER TUBE MACHINE OPERATOR Unavailable Adia Pearson BLANKET CUTTER HAND Unavailable [phone] Adilia Larose BLANKET CUTTER HAND Unavailable [phone] Cassius Patel MD Primary Care Provider [phone] Erasmo Cole MD Unavailable [phone] Saurav Girard MD Unavailable [phone] Suzanna Olmos RN Unavailable [phone] Suzanna Olmos RN Unavailable [phone] Shaikh NANETTE Locke Unavailable [phone] Encounter Details Date Type Department Care Team (Late st Contact Info) Description 02/15/2023 Orders Only [facility] [address] [place] [address] Chuyita Peters MD [address] [facility] [place], [place] [id number] Social History Tobacco Use Types Packs/Day Years [...] How often do you attend chur or yazidism services? 1 to 4 times per year 02/18/2023 Do you belong to any clubs o r organizations such as amish groups, unions, fraternal or athletic groups, or [...] care, and heating? Not very hard 02/18/2023 [facility]ational Stress Questionnaire Answer Date [...] place to sleep or slept in a prison (including now)? No 02/18/2023 Comments Unknown Sex [...] AM EDT documented as of this encounter Functional Status * Audit-C Score Answer Date of Assessment Author 0 02/18/2023 11:10 AM EDT Mychart, Generic * Q1: How often do you have a drink containing alcohol? Answer Date of Assessment Author Never 02/18/2023 11:10 AM EDT Mychart, Generic * Q2: How many drinks containing alcohol do you have on a typical day when you are drinking? Answer Date of Assessment Author Patient does not drink 02/18/2023 11:10 AM EDT M ychart, Generic * Q3: How often do you have six or more drinks on one occasion? Answer Date of Assessment Author Never 02/18/2023 11:10 AM EDT Mychart, Generic documented as of this encounter Plan of Treatment Upcoming Encounters Date Type Department Care Team (Late st Contact Info) Description 04/13/2025 2:00 PM EDT Office Visit [facility] [address] [place] [address] Cassius Patel MD [address] [place] [address] [address] [place] [address] documented as of this encounter Visit Diagnoses Not on filedocumented in this encounter Care Teams Pelletizer Tender Relationship Specialty Start Date End Date Chuyita Peters MD [address], [place] [id number] PCP - Obie MADSEN 09/30/21 08/29/24 Chuyita Peters MD [address], [place] [address] PCP - General Family Medicine 02/18/23 03/26/23 Shaikh Locke MD [address] [place] [address] PCP - General Internal Medicine 03/27/23 12/24/23 Shaikh Locke MD [address] [place] [address] PCP - General Internal Medicine 12/25/23 05/06/24 Ray Banda MD [address] [place] [address] PCP - General Family Medicine 05/07/24 07/15/24 Cassius Patel MD [address] [address] [place] [address] (Fax) PCP - General Family Medicine 07/16/24 Shaikh Locke MD [address] [place] [address] PCP - Obie MADSEN 08/30/24 09/29/24 Vlad Banuelos LPN Licensed Practical Nurse Family Medicine 03/18/24 03/26/24 Suzette Maddox NP [address] [place] [address] Nurse Practitioner Family Medicine 05/07/24 07/15/24 Adia Pearson LSW Laborer [place] 05/26/24 07/16/24 dAilia Larose LSW Laborer [place] [facility] 07/16/24 Erasmo Cole MD [address] [place] [address] [phone] (Fax) Optometrist/Practice Owner Family Medicine 07/16/24 Saurav Girard MD [address] [place] [address] Ophthalmology 07/16/24 Suzanna Olmos RN Registered Nurse Family Medicine 07/31/24 Suzanna Olmos RN Registered Nurse Family Medicine 08/05/24 documented as of this encounter
--- OUTSIDE RECORDS SUMMARY | 2025-02-23 14:02 | XMS_ITS | Encounter Summary ---
Author Organization [facility] Address [address] [place] [address] Care Team Providers Care Ladies Suit Operator Name Role Phone Cassius Patel MD Primary Care Provider Encounter Details Date Type Department Care Team ([facility] Contact Info) Description 01/22/2025 Orders Only [facility] [address] [place] [address] Cam Terrell MD [address] [place] [address] Social History Tobacco Use Types Packs/Day Years [...] Department Care Team (Late Contact Info) Description 03/01/2025 11:00 AM EDT Office Visit [facility] [address] [place] [address] Erasmo Cole MD [address] [facility] [address] [place] [address] documented as of this encounter Procedures Procedure Name Priority Date/Time Associated Diagnosis Comments CARDIAC DEVICE CHECK - REMOTE - PACEMAKER Routine 01/22/2025 12:00 AM EDT documented in this encounter Results * Cardiac device check - Remote pacemaker (01/22/2025 12:00 AM EDT) Anatomical Region Laterality Modality Other 01/22/2025 Cam Terrell MD CV IMPLANTABLE CARDI AC DEVICE PROCEDURES documented in this encounter Visit Diagnoses Not on filedocumented in this encounter Care Teams Ladies Suit Operator Relationship Specialty Start Date End Date Cassius Patel MD [address] [facility] [place] [address] PCP - General 08/25/24 documented as of this encounter
--- OUTSIDE RECORDS SUMMARY | 2025-02-23 14:02 | XMS_ITS ---
Author Organization [facility] Address [address] [place] [address] Care Team Providers Care Adult Education Instructor Name Role Phone Adilia Larose Unavailable Cassius Patel MD Primary Care Provider Erasmo Cole MD Unavailable Saurav Girard MD Unavailable Suzanna Olmos RN Unavailable [phone] Suzanna Olmos RN Unavailable Chronic Care Management (CCM) Status:Enrolled (Active) Start date:05/26/2024 Enrollment date:05/26/2024 Enrollment reason:Self-enrolled Overview Please assess for Care Management needs. 05/26/24, 12:31 PM - SANDRA Sandoval- Patient gives verbal consent to be enrolled in CCM Program and understands there could be a bill for this service. Pt is CCM Bill NO, has [place] Medicare Case Team Name Relationship Phone Suzanna Olmos RN Registered Nurse Adilia Larose SHOE HANDLER(Responsible Staff) [facility] [phone] Continued Care and Services Coordination
--- OUTSIDE RECORDS SUMMARY | 2025-02-23 14:02 | XMS_ITS | Clinical Summary ---
Author Organization [employer] Address [id number] [address] [place] [address] Care Team Providers Care Oil Seal Assembler Name Role Phone Suzette Maddox CAUSTIC OPERATOR-INDUSTRIAL TRAINING SPECIALIST Primary Care Pr ovider Allergies Active Allergy Reactions Criticality Noted Date Comments Cefdinir 06/24/2024 Nitrofurantoin 06/24/2024 Medications HYDROcodone-bennett taminophen (NORCO) 5-325 mg per tablet Take 1 tablet by mouth 2 (two) times a day as needed for pain. Active spironolactone (ALDACTONE) 25 mg tablet Take 1 tablet (25 mg total) by mouth in the morning. Active aspirin 81 mg Take 1 tablet (81 mg total) by mouth in the morning. Active atorvastatin (LIPITOR) 40 mg tablet Take 1 tablet (40 mg total) by mouth in the morning. Active carvediloL (COREG) 6.25 mg tablet Take 1 tablet (6.25 mg total) by mouth in the morning and 1 tablet (6.25 mg total) in the evening. Take with meals. Active furosemide (LASIX) 40 mg tablet Take 1 tablet (40 mg total) by mouth 2 (two) times a day. Active empagliflozin (JARDIANCE) 10 mg tablet tablet Take 1 tablet (10 mg total) by mouth in the morning. Active potassium chloride (KLOR-CON) 20 mEq packet Take 1 packet (20 mEq total) by mouth in the morning and 1 packet (20 mEq total) before bedtime. Active lisinopriL (PRINIVIL,ZESTR IL) 2.5 mg tablet Take 1 tablet (2.5 mg total) by mouth in the morning. Active magnesium oxide (MAGOX) 400 mg tablet Take 1 tablet (400 mg total) by mouth in the morning. Active B-complex with vitamin C tablet Take 1 tablet by mouth in the morning. Active calcium carbonate-vitam in D3 (OSCAL 500 + D) 500 mg(1,250mg) -200 units per tablet Take 1 tablet by mouth in the morning and 1 tablet in the evening. Take with meals. Active acetaminophen (TYLENOL ARTHRITIS) 650 mg 8 hr tablet Take 1 tablet (650 mg total) by mouth every 8 (eight) hours as needed for pain. Active Active Problems No known active problems Family History Medical History Relation Name Comments Breast cancer Cousin 1 Breast cancer Cousin 2 Breast cancer Cousin 3 Relation Name Status Comments Cousin 1 Cousin 2 Cousin 3 Social History Tobacco Use Types Packs/Day Years Used Date Smoking Tobacco: Never Assessed Childcare Answer Date Recorded Childcare Unknown 03/11/2019 Employment Answer Date Recorded Employment Unknown 03/11/2019 Hunger Screening Answer Date Recorded Within the past 12 months we worried whether our food would run out before we got money to buy more. Never True 06/24/2024 Within the past 12 months th e food we bought just didn't last and we didn't have money to get more. Never True 06/24/2024 Purpose - Life Answer Date Recorded Purpose and direction in life Unknown Comments No Sex and Gender Information Value Date Recorded Sex Assigned at Not on file Legal Sex Female 11:37 AM EDT Gender Identity Not on file Sexual Orientation Not on file Last Filed Vital Signs Vital Sign Reading Time Taken Comments Blood Pressure 101/56 06/24/2024 2:01 PM EDT Pulse 66 06/24/2024 2:01 PM EDT Temperature - - Respiratory Rate - - Oxygen Saturation 96% 06/24/2024 2:01 PM EDT Inhaled Oxygen Concentration - - Weight 64.9 kg (143 lb) 06/24/2024 2:01 PM EDT Height 162.6 cm (5' 4 ) 06/24/2024 2:01 PM EDT Body Mass Index 24.55 06/24/2024 2:01 PM EDT Plan of Treatment Health Maintenance Due Date Last Done Comments Depression Screening 1947 Tobacco Screening 1948 Fall Risk Screening 2001 COVID-19 Vaccine (2023-2 5 season) 2024 09/06/2023, 08/15/2022, 04/11/2022, Additional history exists Influenza Vaccine 05/31/2025 07/11/2023, , 08/04/2021, Additional history exists DTaP,Tdap and Td Vaccines (2 - Td or Tdap) 01/07/2034 01/08/2024 Zoster (Shingles) Vaccine Completed 03/23/2019, Medical Devices Not on file Insurance [employer] MEDICARE Care Teams Oil Seal Assembler Relationship Specialty Start Date End Date Suzette Maddox, CAUSTIC OPERATOR-INDUSTRIAL TRAINING SPECIALIST [address] [place] [address] PCP - General Nurse Practitioner 06/24/24
--- OUTSIDE RECORDS SUMMARY | 2025-02-23 14:02 | XMS_ITS | Encounter Summary ---
Author Organization [facility] Address [address] [place] [address] Care Team Providers Care Balance Engineer Name Role Phone Chuyita Peters MD Unavailable Shaikh NANETTE Locke Primary Care Provider [phone] Vlad Banuelos SHIP'S ELECTRONIC WARFARE OFFICER Unavailable Unavailable Ray Banda MD Primary Care Provider Suzette Maddox SENIOR MANUFACTURING ENGINEER Unavailable [phone] Adia Pearson AGRICULTURE INTERNSHIP Unavailable Adilia Larose AGRICULTURE INTERNSHIP Unavailable [phone] Cassius Patel MD Primary Care Provider Devin Kelsey MD Unavailable Saurav Girard MD Unavailable Suzanna Olmos RN Unavailable [phone] Suzanna Olmos RN Unavailable [phone] Shaikh NANETTE Locke Unavailable [phone] Encounter Details Date Type Department Care Team (Late st Contact Info) Description 02/18/2024 Clinisync Result Encounter [facility] External Department Unsolicited [...] How often do you attend chur or presybeterian services? 1 to 4 times per year 02/18/2023 Do you belong to any clubs o r organizations such as restorationist groups, unions, fraternal or athletic groups, or [...] Date Recorded Patient Health Questionnaire-2 Score 0 12/25/2023 [facility] [place] [facility] Occupat ional Health - Occupational Stress [...] place to sleep or slept in a mcfp (including now)? No 02/18/2023 Comments Unknown Sex and Gender Information Value Date Recorded Sex Assigned at Not on file Legal Sex Female 6:48 PM EDT Gender Identity Not on file Sexual Orientation Not on file documented as of this encounter Plan of Treatment Upcoming Encounters Date Type Department Care Team (Late st Contact Info) Description 04/13/2025 2:00 PM EDT Office Visit [facility] [address] [place] [address] Cassius Patel MD [address] [facility] [address] [place] [address] documented as of this encounter Procedures Procedure Name Priority Date/Time Associated Diagnosis Comments NM MUGA 02/18/2024 8:55 AM EDT documented in this encounter Results * NM MUGA (02/18/2024 8:55 AM EDT) Anatomical Region Laterality Modality Radiographic Corinne ging 02/18/2024 8:55 AM EDT Narrative 02/18/2024 8:57 AM EDT [address] [address] Nuclear Medicine Report Signed Patient: FEDE HOOD MR#: [id number] : 1935 Acct:[id number] Age/Sex: 88 / F ADM Date: 02/17/24 Loc: [place] Attending Dr: DEVIN KELSEY Ordering Physician: DEVIN KELSEY Date of Service: 02/17/24 Procedure(s): [place] muga Accession Number(s): [id number] cc: Shaikh Edgar Locke; DEVIN KELSEY [address] [address] Patient Name: FEDE HOOD MRN: [id number] date: 1935 Sex: F Assigned Patient Location: [place] Current Patient Location: Accession/Order Number: [id number] Exam Date: 02/17/2024 14:00 Report Date: 02/18/2024 08:55 At the request of: DEVIN KELSEY Procedure: NM muga NUCLEAR MEDICINE REST GATED CARDIAC STUDY (MUGA) HISTORY: Chronic systolic heart failure. Breast cancer. Syncope. COMPARISON: None. METHOD: Following the injection of 24.2 mCi of Tc-99m-RBC, a routine MUGA study was obtained. Appropriate computer-assisted analysis of the data was performed. FINDINGS: There is mild decreased left ventricular contractility. The left ventricular ejection fraction is decreased at 46%. NM/NM muga IMPRESSION: Decreased LVEF = 46%. Electronically authenticated by: SHARLA BROWER Date: 02/18/2024 08:55 Dictated By: Sharla Brower M.D. Signed By: 02/18/24 0857 DD/ 0855 TD/TT: Sprinkler Irrigation Equipment Mechanic: Procedure Note Radiology, Radiologist, MD - 02/19/2024 [place] [address] Nuclear Medicine Report Signed Patient: FEDE HOOD AMR#: [id number] : 1935cct:[id number] Age/Sex: 88 / FADM Date: 02/17/24 Loc: [place] Attending Dr: DEVIN KELSEY Ordering Physician: DEVIN KELSEY Date of Service: 02/17/24 Procedure(s): [place] muga Accession Number(s): [id number] cc: Shaikh Edgar Locke; DEVIN KELSEY [address] [place] [address] Patient Name: FEDE HOOD MRN: [id number] date: 1935 Sex: F Assigned Patient Location: [place] Current Patient Location: Accession/Order Number: [id number] Exam Date: 02/17/2024 14:00 Report Date: 02/18/2024 08:55 At the request of: DEVIN KELSEY Procedure: NM muga NUCLEAR MEDICINE REST GATED CARDIAC STUDY (MUGA) HISTORY: Chronic systolic heart failure. Breast cancer. Syncope. COMPARISON: None. METHOD: Following the injection of 24.2 mCi of Tc-99m-RBC, a routine MUGA study was obtained. Appropriate computer-assisted analysis of the data was performed. FINDINGS: There is mild decreased left ventricular contractility. The left ventricular ejection fraction is decreased at 46%. NM/NM muga IMPRESSION: Decreased LVEF = 46%. Electronically authenticated by: SHARLA BROWER Date: 02/18/2024 08:55 Dictated By: Sharla Brower M.D. Signed By:02/18/24 0857 DD/ 0855 TD/TT: Sprinkler Irrigation Equipment Mechanic: us Generic External Data Provider IMG XR PROCEDURES Final Result documented in this encounter Visit Diagnoses Not on filedocumented in this encounter Care Teams Balance Engineer Relationship Specialty Start Date End Date Chuyita Peters MD [address] [place] [address] PCP - Obie MADSEN 09/30/21 08/29/24 Shaikh Locke MD [address] [place] [address] PCP - General Internal Medicine 12/25/23 05/06/24 Ray Banda MD [address] [place] [address] PCP - General Family Medicine 05/07/24 07/15/24 Cassius Patel MD [address] [facility] [address] [place] [address] PCP - General Family Medicine 07/16/24 Shaikh Locke MD [address] [place] [address] PCP - Obie MADSEN 08/30/24 09/29/24 Vlad Banuelos LPN Licensed Practical Nurse Family Medicine 03/18/24 03/26/24 Suzette Maddox NP [address] [place] [address] Nurse Practitioner Family Medicine 05/07/24 07/15/24 Adia Pearson LSW Deputy District Customs Director Family Medicine 05/26/24 07/16/24 Adilia Larose LSW Deputy District Customs Director Family Medicine 07/16/24 Devin Kelsey MD [address] [place] [phone] Stacker Operator Family Medicine 07/16/24 Saurav Girard MD [address] [place] [address] Ophthalmology 07/16/24 Suzanna Olmos RN Registered Nurse Family Medicine 07/31/24 Suzanna Olmos, ISABELLE Registered Nurse Family Medicine 08/05/24 documented as of this encounter
--- OUTSIDE RECORDS SUMMARY | 2025-02-23 14:02 | XMS_ITS | Encounter Summary ---
Author Organization [facility] Address [address] [place] [address] Care Team Providers Care Vessel Operator Name Role Phone Adilia Larose Unavailable [phone] Cassius Patel MD Primary Care Provider Erasmo Cole MD Unavailable [phone] Saurav Girard MD Unavailable Suzanna Olmos RN Unavailable Suzanna Olmos RN Unavailable [phone] Encounter Details Date Type Department Care Team (Late st Contact Info) Description 02/18/2025 Patient Outreach [facility] [address] [place] [address] Adilia Larose LSW Social History Tobacco Use Types Packs/Day Years [...] week 06/16/2024 How often do you attend [facility] or evangelical services? More than 4 times per year 06/16/2024 Do you belong to any clubs o r organizations such as yarsanism groups, unions, fraternal or athletic groups, or [...] Recorded Patient Health Questionnaire-2 Score 0 07/14/2024 [facility] Occupat ional Health - Occupational [...] place to sleep or slept in a custodial (including now)? No 02/18/2023 Housing Stability Vital Sign Answer Jake e Recorded In the last 12 months, was t here a time when you were not able to pay the mortgage or rent on time? No 06/16/2024 Number of Times Moved in the Last Year Not on fi le 06/16/2024 At any time in the past 12 m [facility], were you homeless or living in a custodial (including now)? No 06/16/2024 Comments No Sex and Gender Information Value Date Recorded Sex Assigned at Not on file Legal Sex Female 6:48 PM EDT Gender Identity Not on file Sexual Orientation Not on file documented as of this encounter Progress Notes * SANDRA Hall - 02/18/2025 11:44 AM EDT Spoke with daughter, Paty, for monthly outreach. Noted spouse is currently at [facility] for a 30 daystay to receive some PT/OT. Paty states pt is not too happy about this. Family is working to get private caregivers in place during this time to help with both parents. States pt does not think thisis necessary, and feels they can take care of themselves. Family is very attentive and assists withcare needs. No new concerns noted per daughter. She knows to reach out if any needs arise. 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) documented in this encounter Additional Health Concerns Assessment Noted Time PHQ-9 Depression Total Score: 1 03/26/20 24 9:21 AM EDT documented as of this encounter Care Teams Vessel Operator Relationship Specialty Start Date End Date Cassius Patel MD [address] [address] (Fax) PCP - General Family Medicine 07/16/24 Adilia Larose LSW Silver Wrapper Family Medicine 07/16/24 Erasmo Cole MD [address] [place] [address] (Fax) Acid Polymerization Operator Family Medicine 07/16/24 Saurav Girard MD [address] [place] [address] Ophthalmology 07/16/24 Suzanna Olmos RN Registered Nurse Family Medicine 07/31/24 Suzanna Olmos RN Registered Nurse Family Medicine 08/05/24 documented as of this encounter
--- OUTSIDE RECORDS SUMMARY | 2025-02-23 14:02 | XMS_ITS | Encounter Summary ---
Author Organization [facility] Address [address] [place] [address] Care Team Providers Care Senior Mechanical Project Manager Name Role Phone Adilia Larose PLANT FACILITIES TECHNICIAN Unavailable Cassius Patel MD Primary Care Provider [phone] Erasmo Cole MD Unavailable [phone] Saurav Girard MD Unavailable [phone] Suzanna Olmos RN Unavailable Suzanna Olmos RN Unavailable Reason for Visit * Reason Onset Date Comments Med Refill 02/15/2025 Encounter Details Date Type Department Care Team (Late st Contact Info) Description 02/15/2025 Refill [facility] [address] [place] [address] Cassius Patel MD [address] [place] [address] (Fax) Type 2 diabetes mellitus with stage 3b chronic kidney disease, without long-term current use of insulin (HCC) ([facility]/HCC) Social History Tobacco Use Types Packs/Day Years [...] How often do you attend chur or orthodoxy services? More than 4 times per year 06/16/2024 Do you belong to any clubs o r organizations such as druze groups, unions, fraternal or athletic groups, or [...] Recorded Patient Health Questionnaire-2 Score 0 07/14/2024 [facility] of Occupat ional Health - Occupational Stress [...] place to sleep or slept in a halfway (including now)? No 02/18/2023 Housing Stability Vital Sign Answer Jake e Recorded In the last 12 months, was t here a time when you were not able to pay the mortgage or rent on time? No 06/16/2024 Number of Times Moved in the Last Year Not on fi le 06/16/2024 At any time in the past 12 m onths, were you homeless or living in a halfway (including now)? No 06/16/2024 Comments No Sex [...] PM EDT Office Visit [facility] [address] [place] [address] Cassius Patel MD [address] [place] [address] (Fax) documented as of this encounter Visit Diagnoses Diagnosis Type 2 diabetes mellitus with stage 3b chronic kidney disease, without long-term current use of insulin (HCC) (CMS/HCC) documented in this encounter Additional Health Concerns Assessment Noted Time PHQ-9 Depression Total Score: 1 03/26/20 24 9:21 AM EDT documented as of this encounter Care Teams Senior Mechanical Project Manager Relationship Specialty Start Date End Date Cassius Patel MD [address] [place] [address] (Fax) PCP - General Family Medicine 07/16/24 Adilia Larose LSW Central Supply Nurse Family Medicine 07/16/24 Erasmo Cole MD [address] [place] [address] (Fax) Docket Specialist Family Medicine 07/16/24 [place] [address] [place] [address] Ophthalmology 07/16/24 Suzanna Olmos RN Registered Nurse Family Medicine 07/31/24 Suzanna Olmos RN Registered Nurse Family Medicine 08/05/24 documented as of this encounter
--- OUTSIDE RECORDS SUMMARY | 2025-02-23 14:02 | XMS_ITS | Encounter Summary ---
Author Organization [facility] Address [address] [place] [address] Care Team Providers Care Film Technician Name Role Phone Chuyita Peters MD Unavailable Chuyita Peters MD Primary Care Provider [phone] Shaikh NANETTE Locke Primary Care Provider [phone] Shaikh NANETTE Locke Primary Care Provider [phone] Vlad Banuelos INDUSTRIAL RELATIONS WORKER Unavailable Unavailable Ray Banda MD Primary Care Provider [phone] Suzette Maddox DISTRIBUTION WAREHOUSE MANAGER Unavailable [phone] Adia Pearson SCRUB NURSE Unavailable [phone] Adilia Larose SCRUB NURSE Unavailable [phone] Cassius Patel MD Primary Care Provider [phone] Erasmo Cole MD Unavailable [phone] Saurav Girard MD Unavailable [phone] Suzanna Olmos RN Unavailable [phone] Suzanna Olmos RN Unavailable +[phone] Shaikh NANETTE Locke Unavailable [phone] Encounter Details Date Type Department Care Team (Late st Contact Info) Description 02/11/2023 Abstract [facility] [address] [place] [address] Chuyita Peters MD [address] [place], [place] [id number] Social History Tobacco Use Types Packs/Day Years [...] Office Visit [facility] [address] [place] [address] Cassius Patel MD 112 [facility] 100 [place] [address] documented as of this encounter Visit Diagnoses Not on filedocumented in this encounter Care Teams Film Technician Relationship Specialty Start Date End Date Chuyita Peters MD [address] [place], [place] [id number] PCP - Obie MADSEN 09/30/21 08/29/24 Chuyita Peters MD [address] [place], [place] [id number] PCP - General Family Medicine 02/18/23 03/26/23 Shaikh Locke MD [address] [place] [address] PCP - General Internal Medicine 03/27/23 12/24/23 Shaikh Locke MD [address] [place] [address] PCP - General Internal Medicine 12/25/23 05/06/24 Ray Banda MD [address] [place] [address] PCP - General Family Medicine 05/07/24 07/15/24 Cassius Patel MD [address] [place] [address] [place] [address] PCP - General Family Medicine 07/16/24 Shaikh Locke MD [address] [place] [address] PCP - Obie ND 08/30/24 09/29/24 Vlad Banuelos LPN Licensed Practical Nurse Family Medicine 03/18/24 03/26/24 Suzette Maddox, REBECCA [address] [place] [address] Nurse Practitioner Family Medicine 05/07/24 07/15/24 Adia Pearson [facility] Dairy Equipment Mechanic Family Medicine 05/26/24 07/16/24 Adilia Larose, [facility] Dairy Equipment Mechanic Family Medicine 07/16/24 Erasmo Cole MD [address] [place] [address] Customer Professional Family Medicine 07/16/24 Saurav Girard MD [address] [place] [id number] Ophthalmology 07/16/24 Suzanna Olmos RN Registered Nurse Family Medicine 07/31/24 Suzanna Olmos RN Registered Nurse Family Medicine 08/05/24 documented as of this encounter
--- OUTSIDE RECORDS SUMMARY | 2025-02-23 14:02 | XMS_ITS | Encounter Summary ---
Author Organization [facility] Address [address] [place] [address] Care Team Providers Care Rug Cutter Helper Name Role Phone Chuyita Peters MD Unavailable Ray Banda MD Primary Care Provider Suzette Maddox EMERGENCY DEPARTMENT MANAGER Unavailable Adia Pearson NEON TUBE PUMPER Unavailable Adilia Larose NEON TUBE PUMPER Unavailable [phone] Cassius Patel MD Primary Care Provider [phone] Erasmo Cole MD Unavailable [phone] Saurav Girard MD Unavailable Suzanna Olmos RN Unavailable Suzanna Olmos RN Unavailable Shaikh NANETTE Locke Unavailable [phone] Encounter Details Date Type Department Care Team (Late st Contact Info) Description 06/09/2024 Orders Only [facility] [address] [place] [address] Shaikh Locke MD [address] [place] [address] Social History Tobacco Use Types Packs/Day Years [...] How often do you attend chur or yarsanism services? 1 to 4 times per year 02/18/2023 Do you belong to any clubs o r organizations such as islam groups, unions, fraternal or athletic groups, or [...] Recorded Patient Health Questionnaire-2 Score 0 03/26/2024 [facility] - Occupational [...] place to sleep or slept in a half-way (including now)? No 02/18/2023 Comments Unknown Sex [...] Visit [facility] [address] [facility] [address] Cassius Patel MD [address] [address] documented as of this encounter Procedures Procedure Name Priority Date/Time Associated Diagnosis Comments ECG 12-LEAD Routine 06/09/2024 9:49 AM EDT documented in this encounter Results * ECG 12 lead (06/09/2024 9:49 AM EDT) us Shaikh Chucky FITZPATRICK ECG ORDERABLES Final Result documented in this encounter Visit Diagnoses Not on filedocumented in this encounter Additional Health Concerns Assessment Noted Time PHQ-9 Depression Total Score: 1 03/26/20 9:21 AM EDT documented as of this encounter Care Teams Rug Cutter Helper Relationship Specialty Start Date End Date Chuyita Peters MD [address] [place], [place] [phone] PCP - Obie MADSEN 09/30/21 08/29/24 Ray Banda MD [address] [place] [address] PCP - General Family Medicine 05/07/24 07/15/24 Cassius Patel MD [address] [address] PCP - General Family Medicine 07/16/24 Shaikh Locke MD [address] [place] [address] PCP - Obie MDASEN 08/30/24 09/29/24 Suzette Maddox NP [address] [place] [address] Nurse Practitioner Family Medicine 05/07/24 07/15/24 Adia Pearson [facility] Event Coordinator Marketing And Sales Family Medicine 05/26/24 07/16/24 Adilia Larose [facility] Event Coordinator Marketing And Sales Family Medicine 07/16/24 Erasmo Cole MD [address] [place] [address] Bufferer Family Medicine 07/16/24 Saurav Girard MD [address] [place] [address] Ophthalmology 07/16/24 Suzanna Olmos RN Registered Nurse Family Medicine 07/31/24 Suzanna Olmos, RN Registered Nurse Family Medicine 08/05/24 documented as of this encounter
--- OUTSIDE RECORDS SUMMARY | 2025-02-23 14:02 | XMS_ITS | Clinical Summary ---
Author Organization [facility] Address [address] [facility] [place] [address] Phone Care Team Providers Care Fitting Room Supervisor Name Role Phone Unavailable Primary Care Provider Unavailabl e Social History Tobacco Use Types Packs/Day Years Used Date Smoking Tobacco: Never Assessed Comments Unknown Sex and Gender Information Value Date Recorded Sex Assigned at Not on file Legal Sex Female 5:26 PM EST Gender Identity Not on file Sexual Orientation Not on file Plan of Treatment Not on file
--- OUTSIDE RECORDS SUMMARY | 2025-02-23 14:02 | XMS_ITS | Encounter Summary ---
Author Organization [facility] Address [address] [place] [address] Care Team Providers Care Youth Probation Officer Name Role Phone Chuyita Peters MD Unavailable Shaikh NANETTE Locke Primary Care Provider Vlad Banuelos CLIENT EXPERIENCE CONSULTANT Unavailable Unavailable Ray Banda MD Primary Care Provider Suzette Maddox XEROX MACHINE MECHANIC Unavailable Adia Pearson MOTORBOAT MECHANIC INBOARD/OUTBOARD Unavailable Adilia Larose MOTORBOAT MECHANIC INBOARD/OUTBOARD Unavailable Cassius Patel MD Primary Care Provider [phone] Erasmo Cole MD Unavailable Saurav Girard MD Unavailable [phone] Suzanna Olmos RN Unavailable [phone] Suzanna Olmos RN Unavailable [phone] Shaikh NANETTE Locke Unavailable [phone] Encounter Details Date Type Department Care Team (Late st Contact Info) Description 01/08/2024 Orders Only [facility] [address] [place] [address] Will Olguin MD [address] [place] [address] Social History Tobacco Use Types Packs/Day Years [...] How often do you attend chur or episcopalian services? 1 to 4 times per year 02/18/2023 Do you belong to any clubs o r organizations such as cheondoism groups, unions, fraternal or athletic groups, or [...] you are drinking? Patient does not drink 05/22/202 3 Q3: How often do you have si x or more drinks on one occasion? Never 02/18/2023 Overall Financial Resource Strain (CARDIA) Answe r Date Recorded How hard is it for you to pa y for the very basics like food, housing, medical care, and heating? Not very hard 02/18/2023 PHQ-2 Answer Date Recorded Patient Health Questionnaire-2 Score 0 12/25/2023 [facility] - Occupational Stress Questionnaire Answer Date Recorded [...] place to sleep or slept in a fci (including now)? No 02/18/2023 Comments Unknown Sex [...] [facility] [address] [place] [address] Cassius Patel MD [address] [facility] [address] [place], [place] [id number] documented as of this encounter Procedures Procedure Name Priority Date/Time Associated Diagnosis Comments CT HEAD FOR BRAINLAB W/O CONTRAST Routine 01/08/2024 4:[address] ORBITS W AND WO CONTRAST Routine 01/08/2024 1:29 PM EDT documented in this encounter Results * CT HEAD FOR BRAINLAB W/O CONTRAST (01/08/2024 4:06 PM EDT) Anatomical Region Laterality Modality Radiographic Corinne ging us Will Olguin MD IMG XR PROCEDURES Final Result * CT ORBITS W AND WO CONTRAST (01/08/2024 1:29 PM EDT) Anatomical Region Laterality Modality Radiographic Corinne ging us Will Olguin MD IMG XR PROCEDURES Final Result documented in this encounter Visit Diagnoses Not on filedocumented in this encounter Care Teams Youth Probation Officer Relationship Specialty Start Date End Date Chuyita Peters MD [address] [place], [place] [phone] PCP - Obei MADSEN 09/30/21 08/29/24 Shaikh Locke MD [address] [place] [address] PCP - General Internal Medicine 12/25/23 05/06/24 Ray Banda MD [address] [place] [address] PCP - General Family Medicine 05/07/24 07/15/24 Cassius Patel MD 112 [facility] 100 [place] [address] PCP - General Family Medicine 07/16/24 Shaikh Locke MD [address] [place] [address] PCP - Obie MADSEN 08/30/24 09/29/24 Vlad Banuelos LPN Licensed Practical Nurse Family Medicine 03/18/24 03/26/24 Suzette Maddox NP [address] [place] [address] Nurse Practitioner Family Medicine 05/07/24 07/15/24 [facility] Inspector Plating [facility] 05/26/24 07/16/24 Adilia Larose [facility] Inspector Plating Family Medicine 07/16/24 Erasmo Cole MD [address] [place] [address] Iv Technician Family Medicine 07/16/24 Saurav Girard MD [address] [place] [address] Ophthalmology 07/16/24 Suzanna Olmos RN Registered Nurse Family Medicine 07/31/24 Suzanna Olmos, ISABELLE Registered Nurse Family Medicine 08/05/24 documented as of this encounter
--- OUTSIDE RECORDS SUMMARY | 2025-02-23 14:02 | XMS_ITS | Encounter Summary ---
Author Organization [facility] Address [address] [place] [address] Care Team Providers Care Spring Repairer Helper Hand Name Role Phone Chuyita Peters MD Unavailable Chuyita Peters MD Primary Care Provider [phone] Shaikh NANETTE Locke Primary Care Provider [phone] Shaikh NANETTE Locke Primary Care Provider [phone] Vlad Banuelos THERMIT WELDING MACHINE OPERATOR Unavailable Unavailable Ray Banda MD Primary Care Provider [phone] Suzette Maddox EMBEDDED SOFTWARE ARCHITECT Unavailable Adia Pearson WINDOW SYSTEMS ADMINISTRATOR Unavailable [phone] Adilia Larose WINDOW SYSTEMS ADMINISTRATOR Unavailable [phone] Cassius Patel MD Primary Care Provider [phone] Erasmo Cole MD Unavailable [phone] Saurav Girard MD Unavailable [phone] Suzanna Olmos RN Unavailable [phone] Suzanna Olmos RN Unavailable [phone] Shaikh NANETTE Locke Unavailable [phone] Encounter Details Date Type Department Care Team (Late st Contact Info) Description 03/11/2023 Abstract [facility] [address] [facility] [address] Chuyita Peters MD [address] [place] [address] Social History Tobacco Use Types Packs/Day Years [...] How often do you attend chur or moravian services? 1 to 4 times per year 02/18/2023 Do you belong to any clubs o r organizations such as moravian groups, unions, fraternal or athletic groups, or [...] care, and heating? Not very hard 02/18/2023 [facility] - Occupational Stress Questionnaire Answer Date [...] place to sleep or slept in a fpc (including now)? No 02/18/2023 Comments Unknown Sex [...] Visit [facility] [address] [place] [address] Cassius Patel MD [address] [place], [place] [phone] documented as of this encounter Visit Diagnoses Not on filedocumented in this encounter Care Teams Spring Repairer Helper Hand Relationship Specialty Start Date End Date Chuyita Peters MD [address] [place] [address] PCP - Obie MADSEN 09/30/21 08/29/24 Chuyita Peters MD [address] [place] [address] PCP - General Family Medicine 02/18/23 03/26/23 Shaikh Locke MD [address] [place] [address] PCP - General Internal Medicine 03/27/23 12/24/23 Shaikh Locke MD [address] [place] [address] PCP - General Internal Medicine 12/25/23 05/06/24 Ray Banda MD [address] [place] [address] PCP - General Family Medicine 05/07/24 07/15/24 Cassius Patel MD [address] [place] [address] PCP - General Family Medicine 07/16/24 Shaikh Locke MD [address] [place] [address] PCP - Obie MADSEN 08/30/24 09/29/24 Vlad Banuelos LPN Licensed Practical Nurse Family Medicine 03/18/24 03/26/24 Suzette Maddox NP [address] [place] [address] Nurse Practitioner Family Medicine 05/07/24 07/15/24 Adia Pearson [facility] Hand Glove Cleaner Family Medicine 05/26/24 07/16/24 [facility] Hand Glove Cleaner Family [facility] 07/16/24 Erasmo Cole MD [address] [place] [address] Animal Control Licensing Worker Family Medicine 07/16/24 Saurav Girard MD [address] [place] [address] Ophthalmology 07/16/24 Suzanna Olmos, RN Registered Nurse Family Medicine 07/31/24 Suzanna Olmos, RN Registered Nurse Family Medicine 08/05/24 documented as of this encounter
--- OUTSIDE RECORDS SUMMARY | 2025-02-23 14:03 | XMS_ITS | Clinical Summary ---
Author Organization [facility] Address [address] [place] [address] Care Team Providers Care Can Sealer Name Role Phone Cassius Patel MD Primary Care Provider Allergies Active Allergy Reactions Criticality Noted Date Comments Cefdinir Other 09/17/2014 Nitrofurantoin Monohyd/M-Cryst Other 09/17 Medications Medication Sig Dispensed Refills Start Date End Date Status cholecalciferol (Vitamin D-3) 25 MCG (1000 UT) tablet Take 1 tablet every other day by oral route. Active calcium carb,cit-mag cit,ox-D3 300 mg-150 mg- 400 unit tablet as directed Orally Active furosemide (Lasix) 40 mg tabletIndications: Heart failure with mildly reduced ejection fraction (CMS/HCC) Take 1 tablet (40 mg) by mouth every other day. 45 tablet 3 03/13/2024 Active Additional Information Patient taking differently:40 mg oralAs needed, Reported on 09/14/2024 HYDROcodone-acetam inophen ([place]) 5-325 mg tablet Take 1 tablet by mouth every 4 (four) hours if needed. Active apixaban (Eliquis) 2.5 mg tabletIndications: Paroxysmal atrial fibrillation (CMS/HCC) Take 1 tablet (2.5 mg) by mouth two times daily. 180 tablet 3 08/25/2024 Active Jardiance 10 mgIndications:Component Lab Tech [facility] systolic congestive heart failure (CMS/HCC) TAKE ONE TABLET BY MOUTH EVERY DAY DIRECTED 90 tablet 3 10/08/2024 Active lisinopril 2.5 mg tabletIndications: Essential hypertension Take 1 tablet (2.5 mg) by mouth once daily as directed. 90 tablet 3 12/16/2024 6 Active ezetimibe (Zetia) 10 mg tabletIndications: Coronary artery disease involving [place] coronary artery of [place] heart without angina pectoris Take 1 tablet (10 mg) by mouth in the morning. 90 tablet 3 02/17/2025 6 Active atorvastatin (Lipitor) 40 mg tabletIndications: Coronary artery disease due to lipid rich plaque Take 1 tablet (40 mg) by mouth at bedtime. 90 tablet 3 02/17/2025 Active spironolactone (Aldactone) 25 mg tabletIndications: Edema, unspecified type Take 0.5 tablets (12.5 mg) by mouth in the morning. 45 tablet 3 02/17/2025 Active carvedilol (Coreg) 3.125 mg tabletIndications: Essential hypertension Take 1 tablet (3.125 mg) by mouth with breakfast and with evening meal. 180 tablet 3 02/17/2025 6 Active ezetimibe (Zetia) 10 mg tabletIndications: Coronary artery disease involving [place] coronary artery of [place] heart without angina pectoris Take 1 tablet (10 mg) by mouth in the morning. 90 tablet 3 03/13/2024 5 Discontinue d(Reorder) carvedilol (Coreg) 3.125 mg tabletIndications: Essential hypertension Take 1 tablet (3.125 mg) by mouth with breakfast and with evening meal. 180 tablet 3 04/10/2024 5 Discontinue d(Reorder) atorvastatin (Lipitor) 40 mg tabletIndications: Coronary artery disease due to lipid rich plaque TAKE 1 TABLET BY MOUTH AT BEDTIME 90 tablet 3 12/09/2024 5 Discontinue d(Reorder) spironolactone (Aldactone) 25 mg tabletIndications: Edema, unspecified type TAKE ONE-HALF TABLET BY MOUTH EVERY DAY 45 tablet 3 12/09/2024 5 Discontinue d(Reorder) carvedilol (Coreg) 3.125 mg tabletIndications: Essential hypertension Take 1 tablet (3.125 mg) by mouth with breakfast and with evening meal. 180 tablet 3 02/10/2025 5 Discontinue d(Reorder) Active Problems Problem Noted Date Diagnosed Date Controlled substance agreement signed 07/28/2024 History of breast cancer 07/28/2024 Overview (09/14/2024): Left Mastectomy 2001 Mobitz type 2 second degree heart block 07/16/20 Postural kyphosis of cervicothoracic region 06/30 Other chest pain 06/11/2024 Fall 03/26/2024 Overview (06/08/2024): Last Assessment & Plan: Recent fall, she tripped over something. Otherwise, stable gait and no unsteadiness. No need for cane/walker. Routine general medical examination at [facility] 02/18/2023 Overview (03/20/2023): Last Assessment & Plan: Labs, vaccinations and safety reviewed. 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 On GDMT for HFrEF. BP is stable. Denies orthostasis. Dizziness 05/23/2022 Generalized ischemic myocardial dysfunction 05/01 Hyperlipidemia 05/23/2022 Low blood pressure 05/23/2022 Abnormal results of cardiovascular function stud ies 06/20/2021 Other chronic pain 08/16/2020 Ventricular tachycardia 12/22/2018 Overview (03/20/2023): Last Assessment & Plan: Per cardiology Chronic systolic heart failure 12/22/2018 Overview (03/20/2023): Last Assessment & Plan: Per cardiology Decreased estrogen level 12/18/2018 Primary malignant neoplasm of breast 11/30/2015 Type 2 diabetes mellitus without complication Congestive heart failure 04/30/2013 Coronary atherosclerosis 04/30/2013 Heart block 04/30/2013 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/30/2013 Overview (08/25/2024): ISCHEMIC CARDIOMYOPATHY Cardiac pacemaker in situ 04/28/2013 Encounters Date Type Department Care Team Description 02/15/[address] [address] Erasmo Cole MD Coronary artery disease involving [place] coronary artery of [place] heart without angina pectoris; Coronary artery disease due to lipid rich plaque; Edema, unspecified type; Essential hypertension 02/10/[address] [address] Katalina Calzada MA Essential hypertension 02/09/2025 10:30 AM EDT Ancillary Procedure [address] [id number] Encounter for implantable defibrillator reprogramming or check 01/22/2025 Orders Only [facility] [address] [place] [phone] Cam Terrell MD 12/16/2024 Refill [facility] [address] [facility] [place] [address] Mariela Gonzalez MA Essential hypertension 12/09/2024 Refill [facility] [address] [facility] [place] [phone] Erasmo Cole MD Coronary artery disease due to lipid rich plaque; Edema, unspecified type 12/08/2024 Refill [facility] [address] [facility] [place] [phone] Quin Campos MA Coronary artery disease due to lipid rich plaque; Edema, unspecified type from Last 3 Months Immunizations Name Administration Dates Next Due Influenza, High Dose Seasona l, Preservative Free 07/05/2017,07/10/2016,10/04/2015,06/26 Influenza, High-dose Seasona l, Quadrivalent, Preservative Free 07/19/2022,08/04/2021,07/05/2017 Influenza, Seasonal, Quadriv alent, Adjuvanted 08/04/2021,06/27/2020 Influenza, injectable, quadr ivalent, preservative free 06/23/2018 Influenza, seasonal, injecta ble, preservative free, 6 moonths & older 06/28/2020 Influenza, seasonal,quadriva lent, preservative free 06/30/2014 Influenza, trivalent, adjuvanted 06/23/2019 Moderna 12 YR UP Vaccine BiV alent Booster 08/15/2022 Moderna SARS-CoV-2 Vaccination 07/26/2021,2020,11/01/2020 Pneumococcal Conjugate PCV 13 12/23/2020, 015 Pneumococcal Polysaccharide PPV23 05/26/2013 Unspecified Sars-Cov-2 Vaccination 04/11/2022 Zoster, Recombinant 03/23/2019,12/18/2018 Family History Medical History Relation Name Comments Coronary artery disease Other Relation Name Status Comments Other Social History Tobacco Use Types Packs/Day Years Used Date Smoking Tobacco: Never Smokeless Tobacco: Never Tobacco Cessation:Counseling Given: Not Answered Alcohol Use Standard Drinks/Week Comments Not Currently [...] PM EDT Sexual Orientation Not on file Last Filed Vital Signs Vital Sign Reading Time Taken Comments Blood Pressure 110/62 09/14/2024 1:28 PM EST Pulse 73 09/14/2024 1:28 PM EST Temperature - - Respiratory Rate 11 08/02/2023 11:27 AM EDT Oxygen Saturation 97% 09/14/2024 1:28 PM EST Inhaled Oxygen Concentration - - Weight 66.2 kg (146 lb) 09/14/2024 1:28 PM EST Height 161.3 cm (5' 3.5 ) 09/14/2024 1:28 PM EST Body Mass Index 25.46 09/14/2024 1:28 PM EST Plan of Treatment Upcoming Encounters Date Type Department Care Team (Late st Contact Info) Description 03/01/2025 11:00 AM EDT Office Visit [facility] [address] [place] [address] Erasmo Cole MD [address] [facility] [place] [address] Health Maintenance Due Date Last Done Comments Medicare Annual Wellness (AWV) 1935 Diabetes: Retinopathy Screening 1946 Depression Screening 1948 Fall Risk Screening 2001 COVID-19 Vaccine ( season) 2024 07/22/2024, 09/06/2023, 08/15/2022, Additional history exists Diabetes: Hemoglobin A1C 04/14/2025 025, 03/26/2024, 09/26/2023 Adult Tetanus 01/07/2034 01/08/2024 Zoster Vaccines Completed 03/23/2019, 12/18/2018 Pneumococcal Vaccine: 65+ Years Completed 12/23/2020, 04/21/2015, 05/26/2013 Influenza Vaccine Completed 08/05/2024, , 07/19/2022, Additional history exists HIB Vaccines Aged Out No longer eligi ble based on patient's age to complete this topic HPV Vaccines Aged Out No longer eligi ble based on patient's age to complete this topic IPV Vaccines Aged Out No longer eligi ble based on patient's age to complete this topic Meningococcal B Vaccine Aged Out No l onger eligible based on patient's age to complete this topic Meningococcal Vaccine Aged Out No [place] eligible based on patient's age to complete this topic Rotavirus Vaccines Aged Out No longer eligible based on patient's age to complete this topic Procedures Procedure Name Priority Date/Time Associated Diagnosis Comments CARDIAC DEVICE CHECK CHECK - REMOTE Routine 01/25/2025 11:08 AM EDT Adjustment and management of cardiac pacemaker CARDIAC DEVICE CHECK - REMOTE - PACEMAKER Routine 01/22/2025 12:00 AM EDT from Last 3 Months Results * CARDIAC DEVICE CHECK - REMOTE - PACEMAKER (01/25/2025 11:08 AM EDT) Cam Terrell MD CV IMPLANTABLE CARDI AC DEVICE PROCEDURES CPACS * Cardiac device check - Remote pacemaker (01/22/2025 12:00 AM EDT) Anatomical Region Laterality Modality Other 01/22/2025 Cam Terrell MD CV IMPLANTABLE CARDI AC DEVICE PROCEDURES from Last 3 Months Care Teams Can Sealer Relationship Specialty Start Date End Date Cassius Patel MD [address] [place] [address] PCP - General 08/25/24
--- OUTSIDE RECORDS SUMMARY | 2025-02-23 14:03 | XMS_ITS | Encounter Summary ---
Author Organization [facility] Address [address] [place] [address] Care Team Providers Care Painter Mirror Name Role Phone Cassius Patel MD Primary Care Provider [phone] Reason for Visit * Reason Onset Date Comments Med Refill 02/10/2025 Encounter Details Date Type Department Care Team (Late st Contact Info) Description 02/10/2025 Refill [facility] [address] [place] [address] Katalina Calzada MA Essential hypertension Social History Tobacco Use Types Packs/Day Years [...] Description 03/01/2025 11:00 AM EDT Office Visit [facility] at [facility] [address] [place] [phone] Erasmo Cole MD [address] [facility] [address] [facility] [place] [address] documented as of this encounter Visit Diagnoses Diagnosis Essential hypertension Unspecified essential hypertension documented in this encounter Care Teams Painter Mirror Relationship Specialty Start Date End Date Cassius Patel MD [address] [place] [address] PCP - General 08/25/24 documented as of this encounter
--- OUTSIDE RECORDS SUMMARY | 2025-02-23 14:03 | XMS_ITS | Referral Summary ---
Author Organization [facility] Address [address] [place] [address] Care Team Providers Care Broom Builder Name Role Phone Cassius Patel MD Primary Care Provider [phone] Encounters Date Type Department Care Team Description 02/15/2025 Refill [facility] [address] [place] [address] Erasmo Cole MD Coronary artery disease involving [place] coronary artery of [place] heart without angina pectoris; Coronary artery disease due to lipid rich plaque; Edema, unspecified type; Essential hypertension 02/10/2025 Refill [facility] [address] [place] [address] Katalina Calzada MA Essential hypertension 02/09/2025 10:30 AM EDT Ancillary Procedure [facility] [address] [place] [address] Encounter for implantable defibrillator reprogramming or check 01/22/2025 Orders Only [facility] [address] [place] [address] Cam Terrell MD 12/16/2024 Refill [facility] [address] [place] [address] Mariela Gonzalez MA Essential hypertension 12/09/2024 Refill [facility] [address] [facility] [place] [phone] Erasmo Cole MD Coronary artery 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 45 tablet 3 03/13/2024 5 Active Additional Information Patient taking differently:40 mg oralAs needed, Reported on 09/14/2024 HYDROcodone-acetam inophen ([place]) 5-325 mg tablet Take 1 tablet by mouth every 4 (four) hours if needed. Active apixaban (Eliquis) 2.5 mg tabletIndications: Paroxysmal atrial fibrillation (CMS/HCC) Take 1 tablet (2.5 mg) by mouth two times daily. 180 tablet 3 08/25/2024 Active Jardiance 10 mgIndications:Civil Clerk [facility] systolic congestive heart failure (CMS/HCC) TAKE ONE TABLET BY MOUTH EVERY DAY DIRECTED 90 tablet 3 10/08/2024 Active lisinopril 2.5 mg tabletIndications: Essential hypertension Take 1 tablet (2.5 mg) by mouth once daily as directed. 90 tablet 3 12/16/2024 Active ezetimibe (Zetia) 10 mg tabletIndications: Coronary artery disease involving [place] coronary artery of [place] heart without angina pectoris Take 1 tablet [...] 10 mg tabletIndications: Coronary artery disease involving [place] coronary artery of [place] heart without angina pectoris Take 1 tablet [...] breast cancer 07/28/2024 Overview (09/14/2024): Left Mastectomy 2002 Mobitz type 2 second degree heart block 07/16/20 Postural kyphosis of cervicothoracic region 06/30 Other chest pain 06/11/2024 Fall 03/26/2024 Overview (06/08/2024): Last Assessment & Plan: Recent fall, she tripped over something. Otherwise, stable gait and no unsteadiness. No need for cane/walker. Routine general medical examination at [facility] 02/18/2023 Overview (03/20/2023): Last Assessment & Plan: [...] ISCHEMIC CARDIOMYOPATHY Cardiac pacemaker in situ 04/28/2013 Immunizations Name Administration Dates Next Due Influenza, [...] Unspecified Sars-Cov-2 Vaccination 04/11/2022 Zoster, Recombinant 03/23/2019,12/18/2018 Social History Tobacco Use Types Packs/Day Years [...] Description 03/01/2025 11:00 AM EDT Office Visit [facility] [address] [place] [address] Erasmo Cole MD [address] [facility] [address] [facility] [place] [address] Procedures Procedure Name Priority Date/Time Associated Diagnosis [...] PROCEDURES from Last 3 Months Care Teams Broom Builder Relationship Specialty Start Date End Date Cassius Patel MD [address] [place] [address] PCP - General 08/25/24
--- OUTSIDE RECORDS SUMMARY | 2025-02-23 14:03 | XMS_ITS | Clinical Summary ---
Author Organization [facility] Address [address] [place] [address] Care Team Providers Care Lunch Wagon Operator Name Role Phone Unavailable Primary Care Provider Unavailabl e Social History Tobacco Use Types Packs/Day Years Used Date Smoking Tobacco: Never Assessed Comments Unknown Sex and Gender Information Value Date Recorded Sex Assigned at Not on file Legal Sex Female 5:19 PM EDT Gender Identity Not on file Sexual Orientation Not on file Plan of Treatment Not on file
--- OUTSIDE RECORDS SUMMARY | 2025-02-23 14:03 | XMS_ITS | Encounter Summary ---
Author Organization [facility] Address [address] [place] [address] Care Team Providers Care Pipe Line Maintenance Supervisor Name Role Phone Adilia Larose BUSINESS OPERATIONS COORDINATOR Unavailable [phone] Cassius Hendrix MD Primary Care Provider Devin Kelsey MD Unavailable [phone] Saurav Girard MD Unavailable [phone] Suzanna Olmos RN Unavailable [phone] Suzanna Olmos RN Unavailable [phone] Shaikh NANETTE Locke Unavailable [phone] Encounter Details Date Type Department Care Team (Late st Contact Info) Description 09/11/2024 Clinisync Result Encounter [facility] External Department Unsolicited [...] week 06/16/2024 How often do you attend [facility] or shinto services? More than 4 times [...] Recorded Patient Health Questionnaire-2 Score 0 07/14/2024 [facility] [place] [facility] - Occupational Stress [...] place to sleep or slept in a group home (including now)? No 02/18/2023 Housing Stability Vital Sign Answer Jake e Recorded In the last 12 months, was t here a time when you were not able to pay the mortgage or rent on time? No 06/16/2024 Number of Times Moved in the Last Year Not on fi le 06/16/2024 At any time in the past 12 m [facility], were you homeless or living in a group home (including now)? No 06/16/2024 Comments No Sex [...] Office Visit [facility] [address] [place] [address] Cassius Hendrix MD [address] [facility] [address] [place] [address] documented as of this encounter Procedures Procedure Name Priority Date/Time Associated Diagnosis Comments CA ECHO DOPPLER COMPLETE 09/11/2024 6:11 PM EST documented in this encounter Results * CA ECHO DOPPLER COMPLETE (09/11/2024 6:11 PM EST) Anatomical Region Laterality Modality Other 09/11/2024 6:11 PM EST Narrative 09/11/2024 6:12 PM EST The [address] [address] Cardiology Report Signed Patient: FEDE HOOD MR#: [id number] : 1935 Acct:[id number] Age/Sex: 88 / F ADM Date: 09/11/24 Loc: CARD Attending Dr: Cam Terrell M.D. Ordering Physician: Cam Terrell M.D. Date of Service: 09/11/24 Procedure(s): CA echo doppler complete Accession Number(s): [id number] cc: Cam Terrell M.D.; CASSIUS HENDRIX Patient Name: FEDE HOOD MR#: [id number] : 1935 Exam Date: 09/11/2024 Ordering Doctor: CAM TERRELL ECHOCARDIOGRAM REPORT PROCEDURE: CA ECHO DOPPLER COMPLETE INDICATIONS: Atrial fibrillation/flutter COMPARISON: None. DESCRIPTION: COMPLETE ECHOCARDIOGRAM Real-time transthoracic echocardiography with 2D, M-mode, spectral and color flow Doppler performed. QUALITY: Technical quality was good. LEFT VENTRICLE: Normal chamber size. Borderline left ventricular hypertrophy. Global left ventricular systolic function is mildly to moderately decreased. Abnormal septal motion likely due to pacing. LV EF: Visual estimation of left ventricular ejection fraction is 40-45%. DIASTOLIC: Not adequately assessed due to heart rhythm. ATRIAL SEPTUM: LEFT ATRIUM: Moderate dilatation. RIGHT ATRIUM: Moderate dilatation. RIGHT VENTRICLE: Normal chamber size. Normal right ventricular systolic function. Pacer wire present. TRICUSPID VALVE: Normal mobility and thickness. No stenosis with mild to moderate regurgitation. Moderate pulmonary hypertension. RVSP 52 mmHg MITRAL VALVE: Normal mobility and thickness. No evidence of mitral valve stenosis. Mild mitral annular calcification. Mild to moderate mitral regurgitation. AORTIC VALVE: Normal trileaflet appearance. Mildly calcified aortic valve. Mildly diminished mobility. Doppler velocity suggest mild aortic valve stenosis. DVI 0.5, GALINA 1.7cm2. Mild aortic regurgitation. AORTIC ROOT: Normal diameter and appearance. Normal size ascending aorta measuring 3.5 cm and aortic arch measuring 3.4cm. PULMONIC VALVE: Normal thickness and mobility. No stenosis. Trivial regurgitation. PERICARDIUM: No evidence of pericardial effusion. IVC: Mild dilatation. measuring 2.4 cm with no collapse. PLEURA: CONCLUSION: 1. Normal left ventricular size with mildly to moderately reduced systolic function. LVEF is estimated at 40-45%. 2. Normal right ventricular size and systolic function. 3. Moderate biatrial dilatation. 4. Mild to moderate mitral and tricuspid regurgitation. 5. Mild aortic valve stenosis and regurgitation. 6. Moderately elevated right-sided pressures. RVSP is 52 mmHg. Adult Echocardiography Procedure Report Left Ventricle LVEDD (3.7 - 5.6 cm): 4.66 cm LVESD (2.2 - 4.0 cm): 3.86 cm LVIVS thickness (0.6 - 1.2 cm): 0.98 cm LVPW thickness (0.5 - 1.0 cm): 0.90 cm e': 0.06 m/s E - e': 15.95 LVOT Max Gradient: 2.09 mm[Hg], 1.97 mm[Hg] LVOT Area (cm2): 0.71 m/s Peak Velocity (LVOT): 0.72 m/s, 0.70 m/s Mean Velocity (LVOT): 0.51 m/s LVOT Diameter 2.19 cm Left Ventricular Ejection Fraction: 40-45 % Left Atrium LA Volume Index (2D A2C): 32.47 ml/m2 Left Atrium Systolic Dimension: 3.82 cm Mitral Valve MV E to A Ratio: 1.45 Mitral Valve A-Wave Peak Velocity: 0.68 m/s Mitral Valve E-Wave Peak Velocity: 0.98 m/s Right Ventricle RV Internal Diastolic Dimension: 2.68 cm Aorta AO Root Diam: 2.90 cm Ascending Ao Diam: 3.49 cm Aortic Valve AoV Area (Peak Erasmo): 1.79 cm2, 1.81 cm2 AoV Area (VTI): 1.62 cm2, 1.67 cm2 Deceleration Sawyer: 1.88 m/s2 Pressure Half-Time: 516.16 ms Peak Velocity(Antegrade Flow): 1.50 m/s Peak Gradient(Antegrade Flow): 8.95 mm[Hg] Mean Velocity(Antegrade Flow): 1.25 m/s Mean Gradient(Antegrade Flow): 6.47 mm[Hg] Velocity Time Integral: 33.90 cm Tricuspid Valve Peak Velocity (Regurgitant Flow): 2.51 m/s, 2.57 m/s, 3.06 m/s Pulmonic Valve Mean Gradient: 1.43 mm[Hg], 2.00 mm[Hg] Mean Velocity: 0.56 m/s, 0.69 m/s Peak Velocity: 0.84 m/s, 0.85 m/s Peak Gradient: 2.60 mm[Hg], 3.09 mm[Hg], 2.87 mm[Hg] Right Atrium Right Atrium Systolic Pressure: 41.84 ml, 41.84 ml Dictated by: Devin Kelsey M.D. on 09/11/2024 at 18:05 Approved by: Devin Kelsey M.D. on 09/11/2024 at 18:10 Dictated By: DEVIN KELSEY Signed By: 09/11/241811 DD/ 10 TD/TT: Irrigation Worker: Procedure Note Radiology, Radiologist, MD - 09/11/2024 [place] [address] Cardiology Report Signed Patient: FEDE HOOD [facility]#: [id number] : 7Acct:[id number] Age/Sex: 88 / FADM Date: 09/11/24 Loc: CARD Attending Dr: Cam Terrell M.D. Ordering Physician: Cam Terrell M.D. Date of Service: 09/11/24 Procedure(s): CA echo doppler complete Accession Number(s): [id number] cc: Cam Terrell M.D.; CASSIUS HENDRIX Patient Name: FEDE HOOD MR#: [id number] : 1935 Exam Date: 09/11/2024 Ordering Doctor: CAM TERRELL ECHOCARDIOGRAM REPORT PROCEDURE: CA ECHO DOPPLER COMPLETE INDICATIONS: Atrial fibrillation/flutter COMPARISON: None. DESCRIPTION: COMPLETE ECHOCARDIOGRAM Real-time transthoracic echocardiography with 2D, M-mode, spectral and color flow Dopplerperformed. QUALITY: Technical quality was good. LEFT VENTRICLE: Normal chamber size. Borderline left ventricular hypertrophy. Global left ventricular systolic function is mildly tomoderately decreased. Abnormal septal motion likely due to pacing. LV EF: Visual estimation of left ventricular ejection fraction is40-45%. DIASTOLIC: Not adequately assessed due to heart rhythm. ATRIAL SEPTUM: LEFT ATRIUM: Moderate dilatation. RIGHT ATRIUM: Moderate dilatation. RIGHT VENTRICLE: Normal chamber size. Normal right ventricularsystolic function. Pacer wire present. TRICUSPID VALVE: Normal mobility and thickness. No stenosis with mild to moderate regurgitation. Moderate pulmonary hypertension. RVSP 52 mmHg MITRAL VALVE: Normal mobility and thickness. No evidence of mitralvalve stenosis. Mild mitral annular calcification. Mild to moderate mitral regurgitation. AORTIC VALVE: Normal trileaflet appearance. Mildly calcified aorticvalve. Mildly diminished mobility. Doppler velocity suggest mild aortic valve stenosis. DVI 0.5, GALINA 1.7cm2. Mild aortic regurgitation. AORTIC ROOT: Normal diameter and appearance. Normal size ascendingaorta measuring 3.5 cm and aortic arch measuring 3.4cm. PULMONIC VALVE: Normal thickness and mobility. No stenosis. Trivial regurgitation. PERICARDIUM: No evidence of pericardial effusion. IVC: Mild dilatation. measuring 2.4 cm with no collapse. PLEURA: CONCLUSION: 1. Normal left ventricular size with mildly to moderately reduced systolic function. LVEF is estimated at 40-45%. 2. Normal right ventricular size and systolic function. 3. Moderate biatrial dilatation. 4. Mild to moderate mitral and tricuspid regurgitation. 5. Mild aortic valve stenosis and regurgitation. 6. Moderately elevated right-sided pressures. RVSP is 52 mmHg. Adult Echocardiography Procedure Report Left Ventricle LVEDD (3.7 - 5.6 cm): 4.66 cm LVESD (2.2 - 4.0 cm): 3.86 cm LVIVS thickness (0.6 - 1.2 cm): 0.98 cm LVPW thickness (0.5 - 1.0 cm): 0.90 cm e': 0.06 m/s E - e': 15.95 LVOT Max Gradient: 2.09 mm[Hg], 1.97 mm[Hg] LVOT Area (cm2): 0.71 m/s Peak Velocity (LVOT): 0.72 m/s, 0.70 m/s Mean Velocity (LVOT): 0.51 m/s LVOT Diameter 2.19 cm Left Ventricular Ejection Fraction: 40-45 % Left Atrium LA Volume Index (2D A2C): 32.47 ml/m2 Left Atrium Systolic Dimension: 3.82 cm Mitral Valve MV E to A Ratio: 1.45 Mitral Valve A-Wave Peak Velocity: 0.68 m/s Mitral Valve E-Wave Peak Velocity: 0.98 m/s Right Ventricle RV Internal Diastolic Dimension: 2.68 cm Aorta AO Root Diam: 2.90 cm Ascending Ao Diam: 3.49 cm Aortic Valve AoV Area (Peak Erasmo): 1.79 cm2, 1.81 cm2 AoV Area (VTI): 1.62 cm2, 1.67 cm2 Deceleration Sawyer: 1.88 m/s2 Pressure Half-Time: 516.16 ms Peak Velocity(Antegrade Flow): 1.50 m/s Peak Gradient(Antegrade Flow): 8.95 mm[Hg] Mean Velocity(Antegrade Flow): 1.25 m/s Mean Gradient(Antegrade Flow): 6.47 mm[Hg] Velocity Time Integral: 33.90 cm Tricuspid Valve Peak Velocity (Regurgitant Flow): 2.51 m/s, 2.57 m/s, 3.06 m/s Pulmonic Valve Mean Gradient: 1.43 mm[Hg], 2.00 mm[Hg] Mean Velocity: 0.56 m/s, 0.69 m/s Peak Velocity: 0.84 m/s, 0.85 m/s Peak Gradient: 2.60 mm[Hg], 3.09 mm[Hg], 2.87 mm[Hg] Right Atrium Right Atrium Systolic Pressure: 41.84 ml, 41.84 ml Dictated by: Devin Kelsey M.D. on 09/11/2024 at 18:05 Approved by: Devin Kelsey M.D. on 09/11/2024 at 18:10 Dictated By: DEVIN KELSEY Signed By:09/11/241811 DD/ 10 TD/TT: Irrigation Worker: us Generic External Data Provider [facility] Final Result documented in this encounter Visit Diagnoses Not on filedocumented in this encounter Additional Health Concerns Assessment Noted Time PHQ-9 Depression Total Score: 1 03/26/20 9:21 AM EDT documented as of this encounter Care Teams Pipe Line Maintenance Supervisor Relationship Specialty Start Date End Date Cassius Hendrix MD [address] [facility] [address] [place] [address] PCP - General Family Medicine 07/16/24 Shaikh Locke MD [address] [place] [address] PCP - Obie MADSEN 08/30/24 09/29/24 Adilia Larose LSW Foreign Car Mechanic Family Medicine 07/16/24 Devin Kelsey MD [address] [place] [phone] Mapping Specialist Family Medicine 07/16/24 Saurav Girard MD [address] [place] [address] Ophthalmology 07/16/24 Suzanna Olmos, ISABELLE Registered Nurse Family Medicine 07/31/24 Suzanna Olmos, ISABELLE Registered Nurse Family Medicine 08/05/24 documented as of this encounter
--- OUTSIDE RECORDS SUMMARY | 2025-02-23 14:03 | XMS_ITS | Encounter Summary ---
Author Organization [facility] Address [address] [place] [address] Care Team Providers Care Captain Fire Prevention Bureau Name Role Phone Adilia Larose PHYSICAL SECURITY SPECIALIST Unavailable Cassius Patel MD Primary Care Provider [phone] Erasmo Cole MD Unavailable Saurav Girard MD Unavailable [phone] Suzanna Olmos RN Unavailable Suzanna Olmos RN Unavailable [phone] Reason for Visit * Reason Onset Date Comments Med Refill 10/05/2024 Encounter Details Date Type Department Care Team (Late st Contact Info) Description 10/05/2024 Refill [facility] [address] [place] [address] Cassius Patel MD [address] [facility] [address] [place] [address] Social History Tobacco Use Types Packs/Day Years [...] week 06/16/2024 How often do you attend [facility] or mandaeism services? More than 4 times per year 06/16/2024 Do you belong to any clubs o r organizations such as latter day groups, unions, fraternal or athletic groups, or [...] Recorded Patient Health Questionnaire-2 Score 0 07/14/2024 [facility] - Occupational Stress Questionnaire Answer Date [...] place to sleep or slept in a nursing home (including now)? No 02/18/2023 Housing Stability Vital Sign Answer Jake e Recorded In the last 12 months, was t here a time when you were not able to pay the mortgage or rent on time? No 06/16/2024 Number of Times Moved in the Last Year Not on fi le 06/16/2024 At any time in the past 12 m [facility], were you homeless or living in a nursing home (including now)? No 06/16/2024 Comments No [...] PM EDT Office Visit [facility] [address] [place] [address] Cassius Patel MD [address] [place] [address] (Fax) documented as of this encounter Visit Diagnoses Not on filedocumented in this encounter Additional Health Concerns Assessment Noted Time PHQ-9 Depression Total Score: 1 03/26/20 9:21 AM EDT documented as of this encounter Care Teams Captain Fire Prevention Bureau Relationship Specialty Start Date End Date Cassius Patel MD 112 [facility] [address] [place] [address] (Fax) PCP - General Family Medicine 07/16/24 Adilia Larose LSW Cleaning Maid Family Medicine 07/16/24 [place] [address] [place] [phone] Straightening Press Operator Family Medicine 07/16/24 Saurav Girard MD [address] [place] [address] Ophthalmology 07/16/24 Suzanna Olmos RN Registered Nurse Family Medicine 07/31/24 Suzanna Olmos RN Registered Nurse Family Medicine 08/05/24 documented as of this encounter
--- OUTSIDE RECORDS SUMMARY | 2025-02-23 14:03 | XMS_ITS | Encounter Summary ---
Author Organization [facility] Address [address] [place] [address] Care Team Providers Care Transformer Mechanic Name Role Phone Adilia Larose CLINICAL MATERIAL HANDLER Unavailable [phone] Cassius Patel MD Primary Care Provider Erasmo Cole MD Unavailable Saurav Girard MD Unavailable [phone] Suzanna Olmos RN Unavailable Suzanna Olmos RN Unavailable Encounter Details Date Type Department Care Team (Late st Contact Info) Description 10/08/2024 Orders Only [facility] [address] [place] [address] Cassius Patel MD [address] [facility] [address] [place] [address] (Fax) Social History Tobacco Use Types Packs/Day Years [...] How often do you attend chur or church services? More than 4 times per year [...] Recorded Patient Health Questionnaire-2 Score 0 07/14/2024 [place] [facility] Occupat ional Health - Occupational Stress [...] place to sleep or slept in a penitentiary (including now)? No 02/18/2023 Housing Stability Vital Sign Answer Jake e Recorded In the last 12 months, was t here a time when you were not able to pay the mortgage or rent on time? No 06/16/2024 Number of Times Moved in the Last Year Not on fi le 06/16/2024 At any time in the past 12 m [facility], were you homeless or living in a penitentiary (including now)? No 06/16/2024 Comments No Sex and Gender Information Value Date Recorded Sex Assigned at Not on file Legal Sex Female 6:48 PM EDT Gender Identity Not on file Sexual Orientation Not on file documented as of this encounter Plan of Treatment Upcoming Encounters Date Type Department Care Team (Late st Contact Info) Description 04/13/2025 2:00 PM EDT Office Visit [facility] [address] [place] [address] Cassius Patel MD [address] [place] [address] (Fax) documented as of this encounter Visit Diagnoses Not on filedocumented in this encounter Additional Health Concerns Assessment Noted Time PHQ-9 Depression Total Score: 1 03/26/20 9:21 AM EDT documented as of this encounter Care Teams Transformer Mechanic Relationship Specialty Start Date End Date Cassius Patel MD [address] [place] [address] PCP - General Family Medicine 07/16/24 Adilia Larose LSW Admissions Counselor Family Medicine 07/16/24 [place] [address] [place] [phone] Manager Of Finance Family Medicine 07/16/24 Saurav Girard MD [address] [place] [address] Ophthalmology 07/16/24 Suzanna Olmos RN Registered Nurse Family Medicine 07/31/24 Suzanna Olmos RN Registered Nurse Family Medicine 08/05/24 documented as of this encounter
--- OUTSIDE RECORDS SUMMARY | 2025-02-23 14:03 | XMS_ITS | Encounter Summary ---
Author Organization [facility] Address [address] [place] [address] Care Team Providers Care Analytical Laboratory Technician Name Role Phone Cassius Patel MD Primary Care Provider Reason for Visit * Reason Onset Date Comments Med Refill 02/15/2025 Encounter Details Date Type Department Care Team (Late st Contact Info) Description 02/15/2025 Refill [facility] [address] [place] [address] Erasmo Cole MD [address] [facility] [address] [facility] [place] [address] Coronary artery disease involving [place] coronary artery of [place] heart without angina pectoris; Coronary artery disease due to lipid rich plaque; Edema, unspecified type; Essential hypertension Social History Tobacco Use Types Packs/Day Years Used Date Smoking Tobacco: Never Smokeless Tobacco: Never Alcohol Use Standard Drinks/Week Comments Not Currently 0 (1 standard drink = 0.6 oz pur e alcohol) [place] Safety & Environment Answer Date Rec orded [...] Description 03/01/2025 11:00 AM EDT Office Visit [facility] [address] [place] [phone] Erasmo Cole MD [address] [facility] [address] [facility] [place] [address] documented as of this encounter Visit Diagnoses Diagnosis 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
== END 2025-02-23 13:59 | disposition home or self-care (01) ==
LOC: CARD 13:59
PROVIDERS: PCP Family Medicine; Visit Provider Internal Medicine Interventional Cardiology
DX: I50.22 Chronic systolic (congestive) heart failure (principal)
CPT/HCPCS: 93306

== ENCOUNTER 2025-08-02 11:31 | Outpatient (OUT) | payer MEDICARE, SELFPAY ==
--- OUTSIDE RECORDS SUMMARY | 2025-08-02 12:02 | XMS_ITS | CCD ---
Author Organization [facility] Care Team Providers Care Technology Sales Specialist Name Role Phone PHYSICIAN, DEFAULT Unavailable Unavailable PHYSICIAN, DEFAULT Unavailable Unavailable FRAN, CHUYITA Unavailable Unavailable PHYSICIAN, DEFAULT Unavailable Unavailable PHYSICIAN, DEFAULT Unavailable Unavailable FRAN, CHUYITA Unavailable Unavailable PHYSICIAN, DEFAULT Unavailable Unavailable PHYSICIAN, DEFAULT Unavailable Unavailable FRAN, CHUYITA Unavailable Unavailable Tuan, Estrellita Gorman Attending Unavailable FRAN, DR SALGUERO Attending Unavailable FRAN, DR SALGUERO Admitting Unavailable FRAN, DR SALGUERO Primary Care Unavailable FRAN, DR SALGUERO Primary Care Unavailable MOUKADEVIN WALTER Admitting Unavailable MOUKAJOSE ANGEL, DEVIN Attending Unavailable ZIEBER, DR ERNIE Casey Consulting Unavailable MOUKARBEL, DEVIN Consulting Unavailable FRAN, DR SALGUERO Primary Care Unavailable MOUKATOMASZELDEVIN Admitting Unavailable MOUKATOMASZEL, DEVIN Consulting Unavailable YANIQUEUKADEVIN WALTER Attending Unavailable Fran FITZPATRICK, Chuyita Aranda Unavailable Ray Banda MD Primary Care Provider Varsha CUTTER OPERATOR HELPER, Jose Unavailable Lili CIDER PRESS OPERATOR, Adia Unavailable Thuan [facility], Adilia Unavailable [phone] Cassius Hendrix MD Primary Care Provider Kelsey FITZPATRICK, Devin Unavailable [phone] Era FITZPATRICK, Saurav Mosqueda Unavailable [phone] Lili CIDER PRESS OPERATOR, Adia Unavailable Nickolas WALTON, Suzanna Unavailable [phone] Nickolas WALTON, Suzanna Unavailable Cassius Hendrix MD Primary Care Provider [phone] Mary Stroud Attending Unavailable Mary Stroud Admitting Unavailable Chucky FITZPATRICK, Primary Care Provider Chucky FITZPATRICK, Unavailable Devin Cole MD Unavailable Nickolas WALTON, Suzanna Unavailable [phone] Nickolas WALTON, Suzanna Unavailable Thuan FLORES, Adilia Unavailable MADDOX, JOSE N Referring Unavaila ble MADDOX, JOSE N Primary Care Unavaila ble VERHOFF, SWAPNIL N Attending Unavailable SHAIKH LOCKE Referring Unavailable MADDOX, JOSE N Primary Care Unavaila ble LIGIBEL, SEMBRIA L Referring Unavailable MADDOX, JOSE N Primary Care Unavaila ble CASSIUS HENDRIX Referring Unavailable MADDOX, JOSE N Primary Care Unavaila ble DEVIN COLE Attending Unavailable CAM POLANCO Referring Unavailable MOUKAJOSE ANGEL, DEVIN Attending Unavailable CAM POLANCO Referring Unavailable VINITAKIMI Referring Unavailable SHERRI, CAM Referring Unavailable CAM POLANCO Attending Unavailable CAM POLANCO Referring Unavailable SHERRI, CAM Referring Unavailable CAM POLANCO Attending Unavailable Kelsey FITZPATRICK, Devin Unavailable Era FITZPATRICK, Saurav Mosqueda Unavailable Chucky FITZPATRICK, Unavailable CASSIUS HENDRIX Attending Unavailable CASSIUS HENDRIX Attending Unavailable CASSIUS HENDRIX Attending Unavailable CASSIUS HENDRIX Attending Unavailable CASSIUS HENDRIX Attending Unavailable CASSIUS HENDRIX Attending Unavailable MARIELA SHIN Attending Unavailable Thuan FLORES, Adilia Unavailable [phone] Nickolas WALTON, Suzanna Unavailable Chuyita Peters MD Unavailable Shaikh Locke MD Primary Care Provider [phone] Vin LAURA, Vlad Unavailable Unavailable Veronika FITZPATRICK, Ray Primary Care Provider Varsha CUTTER OPERATOR HELPER, Jose Unavailable Lili HECKW, Adia Unavailable [phone] Jorge FITZPATRICK, Cassius Willis Unavailable Allergies Allergy ClassificationReported Allergen(s)Allergy TypeDate of OnsetReaction(s) Facility (2 sources)cefdinir; Translations: [OMNICEF]Drug Txxlryk61-72-0240Pqq [facility] Repository (2 sources)NitrofurantoinDrug Ykurvvh13-25-1717Gbo [facility] Repository (20 sources)cefdinir; Translations: [CEFDINIR]Drug Qtofxdo18-27-3916[facility]cl[facility]RL[facility] Work Phone: (20 sources)Nitrofurantoin; Translations: [NITROFURANTOIN]Drug Tmnjpsr23-74-0560 [facility] (1 source)NitrofurantoinDrug Ygnpiht64-30-1704[facility] (1 source)NITROFURANTOIN MON[place]YD/M-CRYST; Translations: [NITROFURANTOIN [place]YD/M-CRYST]Propensity to adverse reactions to drug (disorder)09-17-2014 [facility] Repository Medications Current Medications MedicationDrug Class(es)DatesSig (Normalized)Sig (Original)acetaminophen 325 mg / HYDROcodone bitartrate 5 mg oral tablet (20 sources)Opioid AgonistStart: 10-28-2024 End: 04-37-0191ixoc 1 tablet by mouth once daily as needed for painHYDROcodone- acetaminophen ([place]) 5-325 MG tablet Indications: Chronic pain syndrome Take 1 tablet by mouth Daily as needed for severe pain or moderate pain 30 tablet 07/13/2025 08/12/2025 ActiveStart: 10-08-2024 End: 40-39-4487ksoo 1 tablet by mouth twice daily as needed for painHYDROcodone- acetaminophen ([place]) 5-325 MG tablet Indications: Chronic pain syndrome Take 1 tablet by mouth 2 (two) times a day as needed for moderate pain for up to 14 days 28 tablet 10/08/2024 10/28/2024 Discontinued (Reorder)Start: 07-28-2024 End: 35-26-4888rjeb 1 tablet by mouth twice daily as needed for painHYDROcodone- acetaminophen ([place]) 5-325 MG tablet Indications: Chronic pain syndrome Take 1 tablet by mouth 2 (two) times a day as needed for moderate pain 60 tablet 07/28/2024 08/27/2024 ActiveStart: 06-18-2024 End: 39-63-0483ulkl 1 tablet by mouth onceHYDROcodone-acetaminophen ([place]) 5- 325 MG tablet Indications: Lumbosacral spondylosis without myelopathy Take 1 tablet by mouth every 12 (twelve) hours if needed for severe pain 60 tablet End: 80-83-0322ykau 1 tablet by mouth once dailyHYDROcodone-acetaminophen ([place]) 5-325 MG tablet Take 1 tablet by mouth Daily 07/28/2024 Discontinued (Reorder)apixaban 2.5 mg oral tablet (20 sources)Factor Xa Inhibitortake 1 tablet by mouth in the morningEliquis 2.5 MG tablet Take 2.5 mg by mouth in the morning and 2.5 mg before bedtime. Active atorvastatin 40 mg oral tablet (20 sources)HMG-CoA Reductase Inhibitoratorvastatin (Lipitor) 40 MG tablet ActiveBlood Glucose Monitoring Suppl ([employer]) w/Device kit (18 sources)Start: 48-80-9523Zcmbl Glucose Monitoring Suppl ([employer]) w/Device kit Indications: Type 2 diabetes mellitus with stage 3b chronic kidney disease, without long-term current use of insulin (HCC) Check BS bid prn 1 kit 10/28/2024 ActiveStart: 84-32-6156Cqnbi Glucose Monitoring Suppl ([employer]) w/Device kit Indications: Type 2 diabetes mellitus with stage 3b chronic kidney disease, without long-term current use of insulin (HCC) ([facility]/HCC) CheckBS bid prn 1 kit 10/28/2024 Activecarvedilol 3.125 mg oral tablet (20 sources)alpha-Adrenergic [place], beta-Adrenergic BlockerStart: 03-26-2024 End: 37-01-4307xswp 1 tablet by mouth in the morningcarvedilol (Coreg) 3.125 MG tablet Indications: Chronic systolic heart failure (HCC) Take 1 tablet (3.125 mg) by mouth in the morning and 1 tablet (3.125 mg) in the evening. Take with meals. 11/03/2024 11/03/2025 Activecholecalciferol 0.025 mg oral capsule (20 sources)Vitamin Dtake 1 capsule by mouth once dailycholecalciferol (Vitamin D-3) 25 MCG (1000 UT) capsule Take 1,000 Units by mouth Daily OTC Active cholecalciferol (Vitamin D-3) 25 MCG (1000 UT) capsule Vitamin D3 1000 Active docusate sodium 50 mg / sennosides, pen[facility] 8.6 mg oral tablet (6 sources)Start: 04-13-2025 End: 88-48-4394aajm 8.6-50 mg by mouth once dailysenna-docusate (Senexon-S) 8.6- 50 MG tablet Indications: Chronic constipation Take 1 tablet by mouth Daily 90 tablet 3 04/13/2025 04/13/2026 Activeempagliflozin 10 mg oral tablet (20 sources)Sodium-Glucose Cotransporter 2 InhibitorStart: 05-03-2025 End: 44-49-4988lvqb 1 tablet by mouth once dailyempagliflozin (Jardiance) 10 MG Indications: Type 2 diabetes mellitus with stage 3b chronic kidney disease, without long-term current use of insulin (HCC) Take 1 tablet (10 mg) by mouth Daily 90 tablet 1 07/13/2025 01/09/2026 ActiveStart: 10-28-2024 End: 24-83-8564pkhk 1 tablet by mouth once dailyempagliflozin (Jardiance) 10 MG Indications: Type 2 diabetes mellitus with stage 3b chronic kidney disease, without long-term current use of insulin (HCC) Take 1 tablet (10 mg) by mouth Daily 90 tablet 01/19/2025 04/19/2025 Activeezetimibe 10 mg oral tablet (20 sources)Dietary Cholesterol Absorption InhibitorStart: 03-13-2024 End: 92-97-4971pbhi 1 tablet by mouth in the morningezetimibe (Zetia) 10 MG tablet Take 10 mg by mouth in the morning. 03/13/2024 Activefurosemide 20 mg oral tablet (20 sources)Loop Diureticfurosemide (Lasix) 20 MG tablet Take 20 mg by mouth if needed Active End: 68-55-4060fqxukrzkzh (Lasix) 40 MG tablet 1 (one) time each day at the same time. 07/16/2024 Discontinued (Therapy completed)lisinopril 2.5 mg oral tablet (20 sources)Angiotensin Converting Enzyme Inhibitorlisinopril 2.5 MG tablet Indications: Hypertension Hold if systolic is 100 or less Activetake 1 tablet by mouth once dailylisinopril 2.5 MG tablet take 1 tablet by oral route every day Oral Activepotassium chloride 20 meq powder for oral solution (17 sources)take 20 mEq by mouth once dailypotassium chloride (Klor-Con) 20 MEQ packet Take 20 mEq by mouth Daily Active End: 57-55-1855skhdxdhpg chloride CR (KLOR-CON) 20 MEQ ER tablet 1 (one) time each day at the same time. 07/16/2024 Discontinued (Therapy completed) spironolactone 25 mg oral tablet (20 sources)Aldosterone AntagonistStart: 78-06-4445thoc 0.5 tablet by mouth once dailyspironolactone (Aldactone) 25 MG tablet Take 0.5 tablets by mouth 1 (one) time each day. 08/27/2018Active Completed/Discontinued Medications MedicationDrug Class(es)DatesSig (Normalized)Sig (Original)acetaminophen 500 mg oral tablet (20 sources)Start: 11-06-2018 End: 82-31-3201btxv 1 tablet by mouth every eight hours as needed for pain acetaminophen (Tylenol) 500 MG tablet Take 1 tablet by mouth every 8 (eight) hours if needed for moderate pain 11/06/2018 11/05/2024 Discontinued (Med list cleanup)take 1 capsule by mouth every six hours for painacetaminophen (Tylenol) 325 MG capsule Indications: Pain Take 325 mg by mouth every 6 (six) hours if needed for mild pain Activeaspirin 81 mg delayed release oral tablet (20 sources)Platelet Aggregation Inhibitor, Nonsteroidal Anti-inflammatory Drug End: 31-82-6043yxxa 1 tablet by mouth in the morningaspirin 81 MG EC tablet Take 81 mg by mouth in the morning. 07/13/2025 Discontinued (Med list cleanup) bisacodyl 5 mg delayed release oral tablet (12 sources)Stimulant Laxative End: 26-20-2362eycu 5 mg by mouth once dailyBisacodyl (LAXATIVE PO) Take 5 mg by mouth Daily OTC 04/13/2025 Discontinued (Therapy completed)Calcium (20 sources)Phosphate Binder, Calcium End: 69-29-9214jubizzz 150 MG tablet as directed Orally 11/03/2024 Discontinued (Therapy completed)calcium 150 MG tablet as directed Orally ActiveFluad Quadrivalent syringe (10 sources)Start: 07-11-2023 End: 54-91-3018Wcjdf Quadrivalent syringe Inject 0.5 mL into the shoulder, thigh, or buttocks 1 (one) time 07/11/2023 07/16/2024 Discontinued (Therapy completed)Start: 12-77-8977Zskax Quadrivalent syringe Inject 0.5 mL into the shoulder, thigh, or buttocks 1 (one) time 07/11/2023 Activemagnesium gluconate 550 mg oral tablet (10 sources) End: 40-99-6080swif 1 tablet by mouth in the morningmagnesium 30 MG tablet Take 1 tablet by mouth in the morning. 07/16/2024 Discontinued (Therapy completed) Problems Active Problems Problem ClassificationProblemDateDocumented DateEpisodic/Chronic Administrative/social admission (2 sources)Advance directive discussed with patient; Translations: [Other specified counseling]45-89-2926AekjhdhmDmltzae dysrhythmias (20 sources)Ventricular tachycardia; Translations: [Ventricular tachycardia] Onset: 678775-50-4715HdrxjurOsypzzg kidney disease (20 sources)Chronic kidney disease stage 3B ; Translations: [Stage 3b chronic kidney disease (HCC)]Onset: 669674-88-7309QowuowbGujcpaw kidney disease (1 source)Chronic kidney disease; Translations: [Chronic kidney disease, stage 3b]Onset: 37-08-8478Jcaigpqovs disorders (20 sources)Cardiac pacemaker in situ; Translations: [Presence of cardiac pacemaker]Onset: 04-30-2013 Resolved: 007204-92-2060BewyhhpCgyemmkbgw heart failure; nonhypertensive (20 sources)Acute combined systolic (congestive) and diastolic (congestive) heart failure; Translations: [Chronic systolic (congestive) heart failure]Onset: 99-81-0415DdirajxJstrpusn atherosclerosis and other heart disease (20 sources)Atherosclerotic heart disease of [place] coronary artery without angina pectoris; Translations: [Coronary atherosclerosis]Onset: 04-25-2023 ChronicDiabetes mellitus with complications (20 sources)Disorder of kidney due to diabetes mellitus; Translations: [Type 2 diabetes mellitus with diabetic nephropathy]Onset: hronic Disorders of lipid metabolism (20 sources)Hyperlipidemia; Translations: [Hyperlipidemia, unspecified]Onset: 02-11-2023 Resolved: 447723-08-4586XqsgkvdJhositpub hypertension (20 sources)Essential hypertension; Translations: [Essential (primary) hypertension]Onset: 443548-65-9764UeycrujPbwpgccjqwnza symptoms and ill- defined conditions (1 source)Dysuria; Translations: [Dysuria]Onset: 70-52-5271CgwqqbsgMwdvt valve disorders (20 sources)Rheumatic disorders of both mitral and aortic valves; Translations: [Tricuspid valve disorder, non-rheumatic]Onset: 211656-98-4449BhycdfoKvche acquired deformities (20 sources)Postural kyphosis; 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, cervicothoracic region]Onset: 141874-08-1978FnxqqiyVmhjw ear and sense organ disorders (10 sources)Asymmetrical sensorineural hearing loss; Translations: [Sensorineural hearing loss, bilateral]15-48-0047YksjywyOtsoj nervous system disorders (15 sources)Chronic pain; Translations: [Other chronic pain]Onset: 02-11-2023 41-59-4058XhrffduDygcr nervous system disorders (20 sources)Chronic pain syndrome; Translations: [Chronic pain syndrome]Onset: 483506-58-8745HcfaptcXvwd-; endo-; and myocarditis; cardiomyopathy (except that caused by tuberculosis or sexually transmitted disease) (20 sources)Primary cardiomyopathy; Translations: [Cardiomyopathy, unspecified] Onset: 636640-60-6141TnqfmaiBrhscoiw codes; unclassified (1 source)Acquired absence of left breast and nipple; Translations: [Acquired absence of left breast and nipple]Onset: 11-67-9171JtfxjjdyXyhlukgky and history of mental health and substance abuse codes (4 sources)Patient encounter status; Translations: [Encounter for screening examination for other mental health and behavioral disorders]12-55-9206Bsvbbumh Spondylosis; intervertebral disc disorders; other back problems (20 sources)Lumbosacral spondylosis without myelopathy; Translations: [Spondylosis without myelopathy or radiculopathy, lumbosacral region]Onset: 517377-07-6994IxxdjdfRvfjlfllhlum (3 sources)LOW BACK PAIN, UNSPECIFIED; Translations: [LOW BACK PAIN, UNSPECIFIED]Onset: 65-76-0646Zjspoehlkrno (1 source)Low back pain, unspecified; Translations: [Low back pain, unspecified] Onset: 06-24-2024 Past or Other Problems Problem ClassificationProblemDateDocumented DateEpisodic/ChronicCancer of breast (20 sources)Primary malignant neoplasm of breast; Translations: [Malignant neoplasm of unspecified site of unspecified female breast]Onset: 11-30-2015 Resolved: 450079-60-4383ReiohbiVozast of breast (20 sources)History of malignant neoplasm of breast; Translations: [Personal history of malignant neoplasm of breast]Onset: 081840-97-8356Xixrgefp Coronary atherosclerosis and other heart disease (2 sources)Presence of aortocoronary bypass graft; Translations: [Presence of aortocoronary bypass graft]Onset: 94-93-0613TdpshueuK Codes: Fall (20 sources)Fall; Translations: [Unspecified fall, initial encounter]Onset: 03-26-2024 Resolved: 054909-17-3747XymmptbpPpfw disorders (20 sources)Mood disordersOnset: Other aftercare (20 sources)Drug therapy finding; Translations: [Other long-term (current) drug therapy]Onset: 162675-27-7679HrcchupuFbqxj aftercare (20 sources)Polypharmacy ; Translations: [Other long-term (current) drug therapy]Onset: 809217-23-8785VrqcfwgyZlbmf gastrointestinal disorders (18 sources)Chronic constipation; Translations: [Other constipation]Onset: 195535-10-5649EgqlmtvwAfamx screening for suspected conditions (not mental disorders or infectious disease) (20 sources)Depression of left ventricular systolic function; Translations: [Abnormal result of cardiovascular function study, unspecified]Onset: 02-11-2023 95-38-9105PbhsfncdKfxdtaen codes; unclassified (2 sources)Other specified postprocedural states; Translations: [Other specified postprocedural states]Onset: 55-85-2698UfkeihdxUwqnfasiuha; intervertebral disc disorders; other back problems (2 sources)Pain in thoracic spine; Translations: [Backache]Onset: 06-24-2024 EpisodicUnclassified (1 source)LOW BACK PAIN, UNSPECIFIED; Translations: [LOW BACK PAIN, UNSPECIFIED] Onset: 02-12-2023 Results Test NameValueInterpretationReference RangeFacilityOffice Visiton 07-06-2025 Follow-up [id number] Daysi De Leon 1935 F Date Provider Department Center 07/06/2025 [facility] Family History Problem Relation Age of Onset Coronary artery disease Other Family Status - Relation Status Age at Mother Father Other Level of Service:60172 [place] OFFICE/OUTPATIENT EST[facility]LISHED [facility] 05-25-2025 MAMM SCREENING UNILAT RT W CADMAMM SCREENING UNILAT RT W CAD DAYSI DE LEON 1935 [id number] EXAM: MAMM SCREENING UNILAT RT W CAD, 05/24/2025 2:54 PM CLINICAL INDICATIONS: Screening mammogram, encounter for; H/O left mastectomy, Screening [...] 05/25/2025 10:01 AM 1 c MAMM 1 YRNormalProMedica Kaiser Foundation HospitalOrders Onlyon 56-60-1105Gkhpfc Only [id number] Daysi De Leon 1935 F Date Provider Department Center 04/23/2025 [facility] Family History Problem Relation Age of Onset Coronary artery disease Other Family Status - Relation Status Age at Mother Father OtherNormalUniversBlanchard Valley Health [facility]on 88-95-818572Mpnvrnh's daughter called stating all doses of carvedilol have been recalled. What would you like her to switch to? I did have her call the pharmacy to see what they recommend, or if they have a protocol. Thanks.NormalHolzer Medical Center – JacksonCOMPREHENSIVE METABOLIC PANELon 76-54-9390Evpcqaf [Mass/Vol]4.3 g/dLNormal3.6-5.1Quest DiagnosticsComment on above:Performed By: #### 496, 29567 #### [facility] [address], [address] [place] [address] Bonding Machine Setter: Dami Rossi MDAlbumin/Globulin [Mass ratio]1.7 {ratio}Normal 1.0-2.5Quest DiagnosticsComment on above:Performed By: #### 496, 71764 #### [facility] [place] [address] Bonding Machine Setter: Dami Rossi MDALP [Catalytic activity/Vol]77 U/TXikymy12-364 Quest DiagnosticsComment on above:Performed By: #### 496, 00506 #### [facility] [place] [address] Bonding Machine Setter: Dami Rossi MDALT [Catalytic activity/Vol]22 U/LNormal6-29 Quest DiagnosticsComment on above:Performed By: #### 496, 61474 #### [facility] [place] [address] Bonding Machine Setter: Dami Rossi MDAST [Catalytic activity/Vol]25 U/GKavirk84-07 Quest DiagnosticsComment on above:Performed By: #### 496, 95642 #### [facility] [place] [address] Bonding Machine Setter: Dami Rossi MDBilirubin [Mass/Vol]0.5 mg/dLNormal0.2-1.2 Quest DiagnosticsComment on above:Performed By: #### 496, 43710 #### [facility] [place] [address] Bonding Machine Setter: Dami Rossi MDCalcium [Mass/Vol]9.2 mg/dLNormal8.6-10.4Quest DiagnosticsComment on above:Performed By: #### 496, 45356 #### [facility] [place] [address] Bonding Machine Setter: Dami Rossi MDChloride [Moles/Vol]108 mmol/LScaqer66-637 Quest DiagnosticsComment on above:Performed By: #### 496, 21283 #### [facility] [place] [address] Bonding Machine Setter: Dami Rossi MDCO2 [Moles/Vol]18 mmol/RWtr49-30Eqzuu DiagnosticsComment on above:Performed By: #### 496, 52184 #### [facility] [place] [address] Bonding Machine Setter: Dami Rossi MDCreatinine [Mass/Vol]1.26 mg/dLHigh0.60-0.95 Quest DiagnosticsComment on above:Performed By: #### 496, 46869 #### [facility] [place] [address] Bonding Machine Setter: Dami Rossi MDGFR/1.73 sq M.predicted among non-blacks MDRD (S/P/Bld) [Vol rate/Area]41 mL/min/{1.73_m2}Low> OR = 60Quest DiagnosticsComment on above:Performed By: #### 496, 13417 #### [facility] [place] [address] Bonding Machine Setter: Dami Rossi MDGlobulin (S) [Mass/Vol]2.6 g/dLNormal1.9-3.7 Quest DiagnosticsComment on above:Performed By: #### 496, 62910 #### [facility] [place] [address] Bonding Machine Setter: Dami Rossi MDGlucose [Mass/Vol]110 mg/rCGweo04-60Dqrss DiagnosticsComment on above:Result Comment: Fasting reference interval For someone without known diabetes, a glucose value between 100 and 125 mg/dL is consistent with prediabetes and should be confirmed with a follow-up test.Performed By: #### 496, 44747 #### [facility] [place] [address] Bonding Machine Setter: Dami Rossi MDPotassium [Moles/Vol]4.8 mmol/LNormal3.5-5.3 Quest DiagnosticsComment on above:Performed By: #### 496, 16906 #### [facility] [place] [address] Bonding Machine Setter: Dami Rossi MDProtein [Mass/Vol]6.9 g/dLNormal6.1-8.1Quest DiagnosticsComment on above:Performed By: #### 496, 50567 #### [facility] [place] [address] Bonding Machine Setter: Dami Rossi MDSodium [Moles/Vol]139 mmol/XEnprxz384-311Qthbv DiagnosticsComment on above:Performed By: #### 496, 67626 #### [facility] [place] [address] Bonding Machine Setter: Dami Rossi MDUrea nitrogen [Mass/Vol]29 mg/dLHigh7-25Quest DiagnosticsComment on above:Performed By: #### 496, 31980 #### [facility] [address], [address] [place] [address] Bonding Machine Setter: Dami Rossi MDUrea nitrogen/Creatinine [Mass ratio]23 mg/mg High6-22Quest DiagnosticsComment on above:Performed By: #### 496, 32658 #### [facility] [address], [address] [place] [address] Bonding Machine Setter: Dami Rossi MDHEMOGLOBIN A1con 61-80-7044PoF7p (Bld) [Mass fraction]6.8 %High<5.7Quest DiagnosticsComment on above:Result Comment: For someone without known diabetes, a [...] hemoglobin A1c for diagnosis of diabetes for children.Performed By: #### 496, 46552 #### [facility] [address], [address] [place] [address] Bonding Machine Setter: Dami Rossi MDOffice Visiton 69-41-0839Mubifw-up visit [id number] Daysi De Leon 1935 F Date Provider Department Center 03/01/2025 DEVIN [facility] Family History Problem Relation Age of Onset Coronary artery disease Other Family Status - Relation Status Age at Mother Father Other Level of Service:45357 [place] OFFICE/OUTPATIENT ESTABLISHED MOD MDM [facility] ECHO DOPPLER COMPLETEon 95-71-6425[facility]Holmes [facility] [address] [place] [address] Cardiology Report Signed Patient: DAYSI DE LEON MR#: [id number] : 1935 Acct:[id number] Age/Sex: 89 / F ADM Date: 02/23/25 Loc: CARD Attending Dr: DEVIN COLE Ordering Physician: DEVIN COLE Date of Service: 02/23/25 Procedure(s): CA echo doppler complete Accession Number(s): [id number] cc: CASSIUS HENDRIX ; DEVIN COLE Patient Name: DAYSI DE LEON MR#: [id number] : 1935 Exam Date: 02/23/2025 Ordering Doctor: DR DEVIN COLE M.D. ECHOCARDIOGRAM REPORT PROCEDURE: CA ECHO DOPPLER COMPLETE INDICATIONS: Heart failure with reduced ejection fraction, CABG, left mastectomy breast cancer, pacemaker, diabetes COMPARISON: None. DESCRIPTION: COMPLETE ECHOCARDIOGRAM Real-time transthoracic echocardiography with 2D, M-mode, spectral and color flow Doppler performed. QUALITY: Technical quality was good. LEFT VENTRICLE: Normal chamber size. Normal left ventricular wall thickness. The septum is abnormal in motion likely due to bundle branch block. Calculated left ventricular ejection fraction is 46%. LV EF: Mildly reduced left ventricular ejection fraction, (45-50%). DIASTOLIC: Grade II diastolic dysfunction. ATRIAL SEPTUM: LEFT ATRIUM: Mild dilatation. RIGHT ATRIUM: Mild dilatation. RIGHT VENTRICLE: Normal chamber size. Normal systolic function. Pacer wire present. TRICUSPID VALVE: s/p annuloplasty repair. Normal mobility and thickness. No stenosis with mild regurgitation. No evidence of pulmonary hypertension. RVSP 26 mmHg MITRAL VALVE: Normal mobility and thickness. No evidence of mitral valve stenosis. Mitral annular calcification. Mild mitral regurgitation. AORTIC VALVE: Normal trileaflet appearance. Mildly calcified aortic valve. Mildly diminished mobility. Doppler velocity suggest moderate aortic valve stenosis. DVI 0.4, GALINA 1.3 cm2. Trivial aortic regurgitation. AORTIC ROOT: Normal diameter and appearance, measuring 2.9 cm. Ascending aorta and aortic arch are normal in size, measuring 2.9 cm. PULMONIC VALVE: Normal thickness and mobility. No stenosis. Trivial regurgitation. PERICARDIUM: No evidence of pericardial effusion. IVC: Collapses with inspirations. IVC is normal in size. PLEURA: CONCLUSION: 1. Left ventricular is normal in size and exhibits mildly reduced systolic function. LVEF is estimated at 45 to 50%. 2. Normal right ventricular size and systolic function. 3. Grade 2 diastolic dysfunction. 4. Mild biatrial dilatation. 5. Mild mitral and tricuspid regurgitation. 6. Moderate aortic valve stenosis. 7. Normal right-sided pressures. Adult Echocardiography Procedure Report Left Ventricle LVEDD (3.7 - 5.6 cm): 4.91 cm LVESD (2.2 - 4.0 cm): 3.60 cm LVIVS thickness (0.6 - 1.2 cm): 0.87 cm LVPW thickness (0.5 - 1.0 cm): 0.81 cm e': 0.06 m/s E - e': 13.84 LVOT Max Gradient: 1.63 mm[Hg] LVOT Area (cm2): 0.64 m/s Peak Velocity (LVOT): 0.64 m/s Mean Velocity (LVOT): 0.48 m/s LVOT Diameter 2.09 cm Left Atrium LA Volume Index (2D A2C): 29.51 ml/m2 Left Atrium Systolic Dimension: 3.82 cm Mitral Valve MV E to A Ratio: 1.21 Mitral Valve A-Wave Peak Velocity: 0.74 m/s Mitral Valve E-Wave Peak Velocity: 0.89 m/s Right Ventricle Aorta AO Root Diam: 2.90 cm Ascending Ao Diam: 2.93 cm Aortic Valve AoV Area (Peak Erasmo): 0.52 cm2, 1.29 cm2 AoV Area (VTI): 0.76 cm2, 1.26 cm2 Peak Velocity(Antegrade Flow): 1.68 m/s, 4.17 m/s Peak Gradient(Antegrade Flow): 11.31 mm[Hg], 69.58 mm[Hg] Mean Velocity(Antegrade Flow): 1.21 m/s, 2.16 m/s Mean Gradient(Antegrade Flow): 6.68 mm[Hg], 26.32 mm[Hg] Velocity Time Integral: 35.81 cm, 59.06 cm Tricuspid Valve Peak Velocity (Regurgitant Flow): 2.14 m/s, 2.39 m/s, 2.31 m/s Pulmonic Valve Mean Gradient: 2.20 mm[Hg] Mean Velocity: 0.69 m/s Peak Velocity: 1.05 m/s, 0 (more content not included)...TBHRadiology, Radiologist, - 02/23/[address] [address] Cardiology Report Signed Patient: DAYSI DE LEON MR#: [id number] : 1935 Acct:[id number] Age/Sex: 89 / F ADM Date: 02/23/25 Loc: CARD Attending Dr: DEVIN COLE Ordering Physician: DEVIN CLOE Date of Service: 02/23/25 Procedure(s): CA echo doppler complete Accession Number(s): [id number] cc: CASSIUS HENDRIX ; DEVIN COLE Patient Name: DAYSI DE LEON MR#: [id number] : 1935 Exam Date: 02/23/2025 Ordering Doctor: DR DEVIN COLE M.D. ECHOCARDIOGRAM REPORT PROCEDURE: CA ECHO DOPPLER COMPLETE INDICATIONS: Heart failure with reduced ejection fraction, CABG, left mastectomy breast cancer, pacemaker, diabetes COMPARISON: None. DESCRIPTION: COMPLETE ECHOCARDIOGRAM Real-time transthoracic echocardiography with 2D, M-mode, spectral and color flow Doppler performed. QUALITY: Technical quality was good. LEFT VENTRICLE: Normal chamber size. Normal left ventricular wall thickness. The septum is abnormal in motion likely due to bundle branch block. Calculated left ventricular ejection fraction is 46%. LV EF: Mildly reduced left ventricular ejection fraction, (45-50%). DIASTOLIC: Grade II diastolic dysfunction. ATRIAL SEPTUM: LEFT ATRIUM: Mild dilatation. RIGHT ATRIUM: Mild dilatation. RIGHT VENTRICLE: Normal chamber size. Normal systolic function. Pacer wire present. TRICUSPID VALVE: s/p annuloplasty repair. Normal mobility and thickness. No stenosis with mild regurgitation. No evidence of pulmonary hypertension. RVSP 26 mmHg MITRAL VALVE: Normal mobility and thickness. No evidence of mitral valve stenosis. Mitral annular calcification. Mild mitral regurgitation. AORTIC VALVE: Normal trileaflet appearance. Mildly calcified aortic valve. Mildly diminished mobility. Doppler velocity suggest moderate aortic valve stenosis. DVI 0.4, GALINA 1.3 cm2. Trivial aortic regurgitation. AORTIC ROOT: Normal diameter and appearance, measuring 2.9 cm. Ascending aorta and aortic arch are normal in size, measuring 2.9 cm. PULMONIC VALVE: Normal thickness and mobility. No stenosis. Trivial regurgitation. PERICARDIUM: No evidence of pericardial effusion. IVC: Collapses with inspirations. IVC is normal in size. PLEURA: CONCLUSION: 1. Left ventricular is normal in size and exhibits mildly reduced systolic function. LVEF is estimated at 45 to 50%. 2. Normal right ventricular size and systolic function. 3. Grade 2 diastolic dysfunction. 4. Mild biatrial dilatation. 5. Mild mitral and tricuspid regurgitation. 6. Moderate aortic valve stenosis. 7. Normal right-sided pressures. Adult Echocardiography Procedure Report Left Ventricle LVEDD (3.7 - 5.6 cm): 4.91 cm LVESD (2.2 - 4.0 cm): 3.60 cm LVIVS thickness (0.6 - 1.2 cm): 0.87 cm LVPW thickness (0.5 - 1.0 cm): 0.81 cm e': 0.06 m/s E - e': 13.84 LVOT Max Gradient: 1.63 mm[Hg] LVOT Area (cm2): 0.64 m/s Peak Velocity (LVOT): 0.64 m/s Mean Velocity (LVOT): 0.48 m/s LVOT Diameter 2.09 cm Left Atrium LA Volume Index (2D A2C): 29.51 ml/m2 Left Atrium Systolic Dimension: 3.82 cm Mitral Valve MV E to A Ratio: 1.21 Mitral Valve A-Wave Peak Velocity: 0.74 m/s Mitral Valve E-Wave Peak Velocity: 0.89 m/s Right Ventricle Aorta AO Root Diam: 2.90 cm Ascending Ao Diam: 2.93 cm Aortic Valve AoV Area (Peak Erasmo): 0.52 cm2, 1.29 cm2 AoV Area (VTI): 0.76 cm2, 1.26 cm2 Peak Velocity(Antegrade Flow): 1.68 m/s, 4.17 m/s Peak Gradient(Antegrade Flow): 11.31 mm[Hg], 69.58 mm[Hg] Mean Velocity(Antegrade Flow): 1.21 m/s, 2.16 m/s Mean Gradient(Antegrade Flow): 6.68 mm[Hg], 26.32 mm[Hg] Velocity Time Integral: 35.81 cm, 59.06 cm Tricuspid Valve Peak Velocity (Regurgitant Flow): 2.14 m/s, 2.39 m/s, 2.31 m/s Pulmonic Valve Mean Gradient: 2.20 mm[Hg] Mean Velocity: 0.69 m/s Peak Velocity: 1.05 m/s, 0.86 m/s Peak Gradient: 2.95 mm[Hg], 4.40 mm[Hg] Right Atrium Right Atrium Systolic Pressure: 40.96 ml, 40.96 ml Dictated by: Devin Cole M.D. on 02/23/2025 at 16:12 Approved by: Devin Cole M.D. on 02/23/2025 at 16:22 Dictated By: DEVIN COLE Signed By: 02/23/251623 DD/ 21 TD/TT: Drop Wirer: [facility] FoodShootrRadiology Study observation (narrative)[facility] FoodShootrTN ECHO DOPPLER COMPLETEOrdered By: Radiologist Radiology on 98-61-2666NAVS [employer] Work Phone: HEMOGLOBIN A1con 36-06-7147JeL4t (Bld) [Mass fraction] 7.1 %High<5.7Quest DiagnosticsComment on above:Result Comment: For someone without known diabetes, a [...] hemoglobin A1c for diagnosis of diabetes for children.Performed By: #### 496 #### [facility] [address], [address] [place] [id number] Bonding Machine Setter: Dami Rossi [facility] METABOLIC PANELon 89-34-5143Mfhlkqq [Mass/Vol]9.2 mg/dLNormal8.6-10.4Quest DiagnosticsComment on above:Performed By: #### 1759, 99237 #### [facility]-[address] [address] Bonding Machine Setter: Shanice Casey FlatiChloride [Moles/Vol]106 mmol/XPlrgxj00-364 [facility] DiagnosticsComment on above:Performed By: #### 1759, 13655 #### [facility] [address] [place] [address] Bonding Machine Setter: Shanice Casey FlatiCO2 [Moles/Vol]28 mmol/AGjebfi05-54Ufzzr DiagnosticsComment on above:Performed By: #### 1759, 55739 #### [facility] [address] [place] [address] Bonding Machine Setter: Shanice Casey FlatiCreatinine [Mass/Vol]1.42 mg/dLHigh0.60-0.95 [facility] DiagnosticsComment on above:Performed By: #### 1759, 13750 #### [facility] [address] [place] [address] Bonding Machine Setter: Shanice Casey FlatiGFR/1.73 sq M.predicted among non-blacks MDRD (S/P/Bld) [Vol rate/Area]36 mL/min/{1.73_m2}Low> OR = 60Quest DiagnosticsComment on above:Performed By: #### 1759, 87263 #### [facility] [address] [place] [address] Bonding Machine Setter: Shanice Casey FlatiGlucose [Mass/Vol]115 mg/iZZjcz08-56Bnxpu DiagnosticsComment on above:Result Comment: Fasting reference interval For someone without known diabetes, a glucose value between 100 and 125 mg/dL is consistent with prediabetes and should be confirmed with a follow-up test.Performed By: #### 1759, 72295 #### [facility] [address] [place], [place] [address] Bonding Machine Setter: Shanice Casey FlatiPotassium [Moles/Vol]4.9 mmol/LNormal3.5-5.3 Quest DiagnosticsComment on above:Performed By: #### 1759, 9[address]14 #### [facility] [address] [place], [place] [address] Bonding Machine Setter: Shanice Casey FlatiSodium [Moles/Vol]138 mmol/QVjzhob739-840Mrijw DiagnosticsComment on above:Performed By: #### 1759, 10573 #### [facility] [address] [place] [address] Bonding Machine Setter: Shanice Casey FlatiUrea nitrogen [Mass/Vol]31 mg/dLHigh7-25Quest DiagnosticsComment on above:Performed By: #### 1759, 626[address] #### [facility] [address] [place], [place] [address] Bonding Machine Setter: Shanice Casey FlatiUrea nitrogen/Creatinine [Mass ratio]22 mg/mg Normal6-22Quest DiagnosticsComment on above:Performed By: #### 1759, 836[address] #### [facility] [address] [place] [address] Bonding Machine Setter: Shanice DavisiCBC (H/H, RBC, INDICES, WBC, PLT)on 10-13-2024 Erythrocyte distribution width (RBC) [Ratio]13.8 %Hpzpnm61.0-15.0Quest DiagnosticsComment on above:Performed By: #### 1759, 68927 #### [facility] [address] [place] [address] Bonding Machine Setter: Shanice Casey FlatiHematocrit (Bld) [Volume fraction]40.0 %Normal 35.0-45.0Quest DiagnosticsComment on above:Performed By: #### 1759, 65485 #### [facility] [address] [place] [address] Bonding Machine Setter: Shanice Casey FlatiHemoglobin (Bld) [Mass/Vol]13.1 g/dLNormal 11.7-15.5Quest DiagnosticsComment on above:Performed By: #### 1759, 04778 #### [facility] [address] [place], [place] [address] Bonding Machine Setter: Shanice DavisiMCH (RBC) [Entitic mass]30.2 kxVzspwd15.0-33.0 Quest DiagnosticsComment on above:Performed By: #### 1759, 85453 #### [facility] [address] [place] [address] Bonding Machine Setter: Shanice DavisiMCHC (RBC) [Mass/Vol]32.8 g/hYQtxzsb91.0-36.0 Quest DiagnosticsComment on above:Result Comment: For adults, a slight decrease in the calculated MCHC value (in the range of 30 to 32 g/dL) is most likely not clinically significant; however, it should be interpreted with caution in correlation with other red cell parameters and the patient's clinical condition.Performed By: #### 1759, 68197 #### [facility] [address] [place] [address] Bonding Machine Setter: Shanice DavisiMCV (RBC) [Entitic vol]92.2 uAYsgwuq99.0-100.0 Quest DiagnosticsComment on above:Performed By: #### 1759, 697[address] #### [facility] [address] [place] [address] Bonding Machine Setter: Shanice DavisiPlatelet mean volume (Bld) [Entitic vol]10.4 fLNormal7.5-12.5Quest DiagnosticsComment on above:Performed By: #### 1759, 35087 #### [facility] [address] [place] [address] Bonding Machine Setter: hSanice DavisiPlatelets (Bld) [#/Vol]200 10*3/uLNormal 140-400Quest DiagnosticsComment on above:Performed By: #### 1759, 57117 #### [facility] Bonding Machine Setter: Shanice DavisiRBC (Bld) [#/Vol]4.34 10*6/uLNormal3.80-5.10 Quest DiagnosticsComment on above:Performed By: #### 1759, 28498 #### [facility] [address] [place] [address] Bonding Machine Setter: Shanice Casey FlatiWBC (Bld) [#/Vol]7.4 10*3/uLNormal3.8-10.8 Quest DiagnosticsComment on above:Performed By: #### 1759, 75420 #### [facility] [address] [place] [address] Bonding Machine Setter: Shanice Porter Visiton 65-55-1882Odqmkh-up visit [id number] Daysi De Leon 1935 F Date Provider Department Center 09/14/2024 [facility]IN [facility] Family History Problem Relation Age of Onset Coronary artery disease Other Family Status - Relation Status Age at Other Level of Service:37201 NC OFFICE/OUTPATIENT ESTABLISHED MOD [facility]DM [facility] DaytonUrine Cultureon 51-70-4348Ndskvlun identified Cx Nom (U)ORGANISM: Strep agalactiae - (group b) (O:STRAGA) [place] Count >100,000 PERFORMED BY: [place] [address] PATHOLOGIST PRINT LINE INSPECTOR DARIUS MAC M.D.NormalThe Formerly [facility] Un[facility] Health Care Physician GroupComment on above: Performed By: #### CUU #### [place] [address] [facility] ECHO DOPPLER COMPLETEon 98-06-9443[place]fw[place] [address] Cardiology Report Signed Patient: DAYSI DE LEON MR#: [id number] : 1935 Acct:[id number] Age/Sex: 88 / F ADM Date: 09/11/24 Loc: CARD Attending Dr: Cam Polanco M.D. Ordering Physician: Cam Polanco M.D. Date of Service: 09/11/24 Procedure(s): CA echo doppler complete Accession Number(s): [id number] cc: Cam Polanco M.D.; CASSIUS HENDRIX Patient Name: DAYSI DE LEON MR#: [id number] : 1935 Exam Date: 09/11/2024 Ordering Doctor: CAM POLANCO ECHOCARDIOGRAM REPORT PROCEDURE: CA ECHO DOPPLER COMPLETE [...] Area (VTI): 1.62 cm2, 1.67 cm2 Deceleration Stephens: 1.88 m/s2 Pressure Half-Time: 516.16 ms Peak Velocity(Antegrade Flow): 1.50 m/s Peak Gradient(Antegrade Flow): 8.95 mm[Hg] Mean Velocity(Antegrade Flow): 1.25 m/s Mean Gradient(Antegrade Flow): 6.47 mm[Hg] Velocity Time Integral: 33.90 cm Tricuspid Valve Peak Velocity (Regurgitant Flow): 2.51 m/s, 2.57 m/s, 3.06 m/s Pulmonic Valve (more content not included)...TBHRadiology, Radiologist, MD - 09/11/2024 [place] [address] Cardiology Report Signed Patient: DAYSI DE LEON MR#: [id number] : 1935 Acct:[id number] Age/Sex: 88 / F ADM Date: 09/11/24 Loc: CARD Attending Dr: Cam Polanco M.D. Ordering Physician: Cam Polanco M.D. Date of Service: 09/11/24 Procedure(s): CA echo doppler complete Accession Number(s): [id number] cc: Cam Polanco M.D.; CASSIUS HENDRIX Patient Name: DAYSI DE LEON MR#: [id number] : 1935 Exam Date: 09/11/2024 Ordering Doctor: CAM POLANCO ECHOCARDIOGRAM REPORT PROCEDURE: CA ECHO DOPPLER COMPLETE [...] Area (VTI): 1.62 cm2, 1.67 cm2 Deceleration Stephens: 1.88 m/s2 Pressure Half-Time: 516.16 ms Peak [...] 41.84 ml, 41.84 ml Dictated by: Devin Cole M.D. on 09/11/2024 at 18:05 Approved by: Devin Cole M.D. on 09/11/2024 at 18:10 Dictated By: DEVIN COLE Signed By: 09/11/241811 DD/ 10 TD/TT: Drop Wirer: NIYA HealthcareRadiology Study observation (narrative)[facility] HospitalCA ECHO DOPPLER COMPLETEOrdered By: Radiologist Radiology on 26-90-9237WJPV FoodSh[employer]r Work Phone: Office Visiton 96-97-0633Vakgiq-up [id number] Daysi De Leon 1935 F Date Provider Department Center 08/25/2024 Santiago-CAM POLANCO Family History Problem Relation Age of Onset Coronary artery disease Other Family Status - Relation Status Age at Other Level of Service:94296 NC OFFICE/OUTPATIENT NEW MODERATE MDM 45 MINUTESNormal [facility] JacksonALL LIPID PROFILE (FASTING)on 56-37-8535DNPC HDL RATIO2.1NOMS HealthcareComment on above:3.3 - 4.4 LOW RISK 4.4 - 7.1 AVERAGE RISK 7.1 - 11.0 MODERATE RISK >11.0 HIGH RISK Cholesterol [Mass/Vol]102 mg/dLNINF - 200 mg/dLNONV HealthcareCholesterol in HDL [Mass/Vol]49 mg/dL40 - 60 mg/dLNOMS HealthcareComment on above:> or =60 mg/dl - LOW CARDIOVASCULAR RISK <40 mg/dl - HIGH CARDIOVASCULAR RISK Magnesium [Mass/Vol]42.6 mg/dLNONV HealthcareComment on above:<100 mg/dl OPTIMAL 100-129 mg/dl NEAR OR ABOVE OPTIMAL 130-159 mg/dl BORDERLINE HIGH 160-189 mg/dl HIGH >190 mg/dl VERY HIGH Magnesium [Mass/Vol]10.4 mg/dLNONV HealthcareTriglyceride [Mass/Vol]52 mg/dLNINF - 150 mg/dLNONV HealthcareCCF Oumar 09-25-4731UJB [Catalytic activity/Vol]28 U/L14 - 59 U/LNOMS HealthcareCCF Corey 99-09-4092LAK [Catalytic activity/Vol]19 U/L15 - 37 U/LNOMS HealthcareNo Panel Informationon 65-82-2951VEWGKGCJLXNCA HealthcareDrugs of abuse panel Screen (U)on 47-76-3877Zvlopjuxlrye Ql (U) NegativeNOMS HealthcareBarbiturates Ql (U)NegativeNOMS HealthcareBenzodiazepines Ql (U)NegativeNOMS HealthcareBenzoylecgonine Ql (U)NegativeNOMS Healthcare Carboxy tetrahydrocannabinol (Mec) [Mass/Mass]NegativeNOMS Healthcare Interpretation and review of laboratory resultsNormalNOMS HealthcareMethadone (U) [Mass/Vol]NegativeNOMS HealthcareMethylenedioxymethamphetamine Screen Ql (U) NegativeNOMS HealthcareMorphine (U) [Mass/Vol]NegativeNOMS HealthcareOpiates Ql (U)NegativeNOMS HealthcareoxyCODONE Ql (U)NegativeNOMS HealthcarePhencyclidine Ql (U)NegativeNOMS HealthcareReference Lab Test IDNegativeNOMS Healthcare Tricyclic antidepressants [Mass/Vol]NegativeNOMS HealthcareNOMS HealthcareBASIC METABOLIC PANLon 36-36-4315Feaop gap [Moles/Vol]9 mmol/LNormal5-15[facility] Medical CenterComment on above:Performed By: #### BMP #### [facility] ([id number]) [address], [address] [place], [place] [address]Dohxxpz [Mass/Vol]9.5 mg/dLNormal8.5-10.5PLicking Memorial HospitalComment on above:Performed By: #### BMP #### [facility] ([id number]) [address], [address] [place], [place] [address]Ysisjnpy [Moles/Vol]99 mmol/NPijroq16-392VcnSkiwqdWhite Rock Medical CenterComment on above:Performed By: #### BMP #### [facility] ([id number]) [address], [address] [place], [place] [address]TG0 [Moles/Vol]29 mmol/FXwzzbc46-10UsjRspplaLicking Memorial Hospital Comment on above:Performed By: #### BMP #### [facility] ([id number]) [address], [address] [place], [place] [address]Svmnqtockh [Mass/Vol]1.39 mg/dLHigh0.40-1.00[facility] Medical CenterComment on above:Result Comment: METHOD TRACEABLE TO IDMS STANDARD Performed By: #### BMP #### [facility] ([id number]) [address], [address] [place], [place] [address]QRM/1.73 sq M.predicted among non-blacks MDRD (S/P/Bld) [Vol rate/Area]37 mL/min/{1.73_m2}Low>59ProWhite Rock Medical CenterComment on above: Result Comment: Reported eGFR is based on the CKD-EPI 2020 equation that does not use a race coefficient.Performed By: #### BMP #### [facility] ([id number]) [address], [address] [place], [place] [address]Doyicel [Mass/Vol]121 mg/yTTnwz86-49CosRcrkrkCincinnati Children's Hospital Medical Center Comment on above:Performed By: #### BMP #### [facility] ([id number]) [address], [address] [place], [place] [address]Buyhmesgk [Moles/Vol]3.9 mmol/LNormal3.5-5.0ProWhite Rock Medical CenterComment on above:Performed By: #### BMP #### [facility] ([id number]) [address], [address] [place], [place] [address]Vqilrv [Moles/Vol]137 mmol/CHyktza705-449QznTpjdfw Fremont HospitalComment on above:Performed By: #### BMP #### [facility] ([id number]) [address], [address] [place], [place] [address]Bejj nitrogen [Mass/Vol]32 mg/dLHigh5-27ProWhite Rock Medical CenterComment on above:Performed By: #### BMP #### [facility] ([id number]) [address], [address] [place], [place] [address]Ywsjauui function testson 48-88-8658Ifqym Ear: Mild sloping to profound sensorineural hearing loss above 250 Hz Left Ear: Mild to severe sensorineural hearing loss [facility] METABOLIC PANLon 36-28-0910Vxpuo gap [Moles/Vol]12 mmol/LNormal5-15ProWhite Rock Medical CenterComment on above: Performed By: #### CBCA, BMP, 34037-5, 53612-7 #### [facility] ([id number]) [address], [address] [place] [address]Zmzusml [Mass/Vol]9.4 mg/dLNormal8.5-10.5PLicking Memorial HospitalComment on above:Performed By: #### MELVIN PATTON, 61083-4, 25903-8 #### [facility] ([id number]) [address], [address] [place] [address]Rjirlypw [Moles/Vol]101 mmol/AGfaxem04-842NsmLpwtqkWhite Rock Medical CenterComment on above:Performed By: #### MELVIN PATTON, , 53165-2 #### [facility] ([id number]) [address], [address] [place] [address]PR4 [Moles/Vol]24 mmol/ERksxxx83-93HraYqnvkyLicking Memorial Hospital Comment on above:Performed By: #### MELVIN PATTON, , [address]28-0 #### [facility] ([id number]) [address], [address] [place], [place] [address]Hxrunqgfdh [Mass/Vol]1.60 mg/dLHigh0.40-1.00[facility] Medical CenterComment on above:Result Comment: METHOD TRACEABLE TO IDMS STANDARD Performed By: #### MELVIN PATTON, , 57807-4 #### [facility] ([id number]) [address], [address] [place], [place] [address]ZJY/1.73 sq M.predicted among non-blacks MDRD (S/P/Bld) [Vol rate/Area]31 mL/min/{1.73_m2}Low>59ProWhite Rock Medical CenterComment on above: Result Comment: Reported eGFR is based on the CKD-EPI 2020 equation that does not use a race coefficient.Performed By: #### MELVIN PATTON, 52823-5, 14946-6 #### [facility] ([id number]) [address], [address] [place] [address]Mizgpgv [Mass/Vol]111 mg/oEYlza07-69YvcBlegzqWhite Rock Medical Center Comment on above:Performed By: #### MELVIN PATTON, , 64669-3 #### [facility] ([id number]) [address], [address] [place], [place] [address]Mqijcurph [Moles/Vol]5.0 mmol/LNormal3.5-5.0ProWhite Rock Medical CenterComment on above:Performed By: #### MELVIN PATTON, , #### [facility] ([id number]) [address], [address] [place], [place] [address]Fppzqw [Moles/Vol]137 mmol/LQjakbo067-678UhuPjcdpo [facility]remont HospitalComment on above:Performed By: #### MELVIN PATTON, , #### [facility] ([id number]) [address], [address] [place], [place] [address]Pmio nitrogen [Mass/Vol]43 mg/dLHigh5-27ProWhite Rock Medical CenterComment on above:Performed By: #### MELVIN PATTON, , 69741-4 #### [facility] ([id number]) [address], [address] [place], [place] [address]VGP AND AUTO DIFFon 96-61-6054XVUQXXTQ BASOPHIL0.0 X10E9/LNormal 0.0-0.2PLicking Memorial HospitalComment on above:Performed By: #### MELVIN PATTON, , 30564-5 #### [facility] ([id number]) [address], [address] [place], [place] [address]UFBGTUWU NEUTROPHIL3.8 X10E9/LNormal1.5-6.6ProWhite Rock Medical CenterComment on above:Performed By: #### MELVIN PATTON, , #### [facility] ([id number]) [address], [address] [place], [place] [address]Vaholsvzp/100 WBC (Bld)0.8 %[facility] Comment on above:Performed By: #### CBCMELVIN May, , [address]454-9 #### [facility] ([id number]) [address], [address] [place], [place] [address]Oxkdcpfmwfg (Bld) [#/Vol]0.2 10*3/uLNormal0.0-0.4[facility] Medical CenterComment on above:Performed By: #### POOJA, MELVIN, , 11518-6 #### [facility] ([id number]) [address], [address] [place], [place] [address]Vxpvrpygdar/100 WBC (Bld)2.7 %NormalCincinnati Children's Hospital Medical Center Comment on above:Performed By: #### MELVIN PATTON, , 43054-3 #### [facility] ([id number]) [address], [address] [place], [place] [address]Itdzjqjkkui distribution width (RBC) [Ratio]15.5 %High11.5-15.0 [facility] Medical CenterComment on above:Performed By: #### MELVIN PATTON, , 09438-4 #### [facility] ([id number]) [address], [address] [place], [place] [address]Bdtmreeopa (Bld) [Volume fraction]43.0 %Rtshvl89-98GmuTsvblzCincinnati Children's Hospital Medical CenterComment on above:Performed By: #### CBCYadira, MELVIN, , 01242-9 #### [facility] ([id number]) [address], [address] [place], [place] [address]Frohfznlex (Bld) [Mass/Vol]14.4 g/aNSveccs86.7-15.5PLicking Memorial HospitalComment on above:Performed By: #### CBCA, BMP, 60610-7, 54391-9 #### [facility] ([id number]) [address], [address] [place], [place] [address]Hgehcqdrbzy (Bld) [#/Vol]1.4 10*3/uLNormal1.0-3.5PLicking Memorial HospitalComment on above:Performed By: #### CBCA, BMP, 35676-9, 62908-1 #### [facility] ([id number]) [address], [address] [place], [place] [address]Jaqxzesbvhl/100 WBC (Bld)22.9 %NormalProWhite Rock Medical Center Comment on above:Performed By: #### CBCA, BMP, 09459-4, 23706-7 #### [facility] ([id number]) [address], [address] [place], [place] [address]YAS (RBC) [Entitic mass]31.8 fuSwbrna63-45ZmuQhowosWhite Rock Medical CenterComment on above:Performed By: #### CBCA, BMP, , 57910-7 #### [facility] ([id number]) [address], [address] [place], [place] [address]FICS (RBC) [Mass/Vol]33.6 g/fTWktxyp59-06ApfGgftjrWhite Rock Medical CenterComment on above:Performed By: #### CBCA, BMP, 46928-0, 46990-2 #### [facility] ([id number]) [address], [address] [place], [place] [address]UHS (RBC) [Entitic vol]95 kGAxhccf16-287PpwLkkahv Fremont HospitalComment on above:Performed By: #### CBCA, BMP, 01224-9, 02166-5 #### [facility] ([id number]) [address], [address] [place], [place] [address]Bxhmhpvpz (Bld) [#/Vol]0.8 10*3/uLNormal0-0.9[facility] Medical CenterComment on above:Performed By: #### CBCA, BMP, , 27735-6 #### [facility] ([id number]) [address], [facility] [address] [place], [place] [address]Psnbfruxf/100 WBC (Bld)12.3 %NormalCincinnati Children's Hospital Medical Center Comment on above:Performed By: #### CBCA, BMP, , 68220-0 #### [facility] ([id number]) [address], [facility] [address] [place], [place] [address]Bwabtljvols/100 WBC (Bld)61.3 %NormalCincinnati Children's Hospital Medical Center Comment on above:Performed By: #### CBCA, BMP, , 50540-6 #### [facility] ([id number]) [address], [address] [place] [address]Ubvbtuov mean volume (Bld) [Entitic vol]9.4 fLNormal7-12 [facility] Medical CenterComment on above:Performed By: #### CBCA, BMP, , 89528-3 #### [facility] ([id number]) [address], [address] [place], [place] [address]Uvrpmptbd (Bld) [#/Vol]183 10*3/xSNshaga756-880RqbUwzmaiCincinnati Children's Hospital Medical CenterComment on above:Performed By: #### CBCA, BMP, , 94993-1 #### [facility] ([id number]) [address], [facility] [address] [place], [place] [address]INW COUNT4.54 X10E12/LNormal3.80-5.20[facility] Comment on above:Performed By: #### CBCA, BMP, , 00230-4 #### [facility] ([id number]) [address], [address] [place], [place] [address]AZR (Bld) [#/Vol]6.2 10*3/uLNormal4.0-11.0[facility] Medical CenterComment on above:Performed By: #### MELVIN PATTON, 45398-7, 06771-8 #### [facility] ([id number]) [address], [address] [place], [place] [address]SEVQRTDYLin 26-54-1354Yducataos [Mass/Vol]2.8 mg/dLHigh1.8-2.6 [facility] Medical CenterComment on above:Performed By: #### MELVIN PATTON, , 91309-9 #### [facility] ([id number]) [address], [address] [place], [place] [address]MECUVVCIWUAZ - ALBUMIN:CREATININE URINE RATIOon 06-24-2024 ALB/CREAT RATIO16.1 mg/g creatNormal0.0-30.0C[facility] Hospital Medical CenterComment on above:Performed By: #### SUAD VERNON #### [facility] ([id number]) [address], [address] [place], [place] [address]Kumwcmx DL <= 20 mg/L (U) [Mass/Vol]1.5 mg/dLNormal0.0-1.9 [facility] Medical CenterComment on above:Performed By: #### SUAD VERONN #### [facility] ([id number]) [address], [address] [place], [place] [address]NZBPD CREAT93.40 mg/dLNormalCincinnati Children's Hospital Medical CenterComment on above:Performed By: #### SAULO UA #### [facility] ([id number]) [address], [address] [place], [place] [address]VGPLGJESHAea 17-76-2649Xybcxmjhb Ql (U)NegativeNormalNEG [facility] Medical CenterComment on above:Performed By: #### SAULO UA #### [facility] ([id number]) [address], [address] [place], [place] [address]NPFHY/HGBTraceAbnormalNEGProWhite Rock Medical CenterComuniversity of michigan health on above:Performed By: #### SAULO UA #### [facility] ([id number]) [address], [address] [place], [place] [address]Opfxe (U)YELLOWNormalYELLOWProWhite Rock Medical CenterComment on above:Performed By: #### SAULO UA #### [facility] ([id number]) [address], [address] [place], [place] [address]Vptcism Ql (U)>1000AbnormalNEGProWhite Rock Medical CenterComment on above:Performed By: #### SAULO UA #### [facility] ([id number]) [address] [place], [place] [address]Yrgwuhv Ql (U)NegativeNormalNEGProWhite Rock Medical CenterComuniversity of michigan health on above:Performed By: #### SAULO UA #### [facility] ([id number]) [address], [address] [place], [place] [address]Yzozvtvvf esterase Test strip Ql (U)LargeAbnormalNEGProWhite Rock Medical CenterComuniversity of michigan health on above:Result Comment: HIGH CONCENTRATIONS OF GLUCOSE MAY DECREASE THE REACTIVITY OF THE DIPSTICK LEUKOCYTE TEST PAD.Performed By: #### SAULO UA #### [facility] ([id number]) [address], [address] [place], [place] [address]KKVNOGWAUKXMPZounceldECUFGxpDslhtu Fremont HospitalComment on above:Performed By: #### SAULO UA #### [facility] ([id number]) [address], [address] [place], [place] [address]Msfmkcr Ql (U)PositiveAbnormalNEGCincinnati Children's Hospital Medical Center Comment on above:Performed By: #### SAULO UA #### [facility] ([id number]) [address], [address] [place], [place] [address]yW (U)5.5 [pH]Normal5.0-8.5PLicking Memorial HospitalComment on above:Performed By: #### SAULO UA #### [facility] ([id number]) [address], [address] [place], [place] [address]Jtirmbm Ql (U)NegativeNormalNEGCincinnati Children's Hospital Medical CenterComment on above:Performed By: #### SAULO UA #### [facility] ([id number]) [address], [address] [place], [place] [address]S.B.CELLS0 /hpfNormal0-5PLicking Memorial HospitalComment on above:Performed By: #### SAULO UA #### [facility] ([id number]) [address], [address] [place], [place] [address]Mxuwwhmv gravity (U) [Rel density]1.809Yhqzow8.003-1.035 [facility] Medical CenterComment on above:Performed By: #### SAULO UA #### [facility] ([id number]) [address], [address] [place], [place] [address]CFKDMEWD EPITHELIUM1 /hpfNormal0-5PLicking Memorial Hospital Comment on above:Performed By: #### SAULO UA #### [facility] ([id number]) [address], [address] [place], [place] [address]UYHXUQYKUYFVLPPdpgoyABBQBPehTtarcd [facility]remont HospitalComment on above:Performed By: #### SAULO UA #### [facility] ([id number]) [address], [address] [place], [place] [address]Dqbxfhhlheee (U) [Mass/Vol]mg/dLNormal<1.1PLicking Memorial HospitalComment on above:Performed By: #### SAULO, UA #### [facility] ([id number]) [address] [facility], [address] [place] [address]P.B.CELLS17 /hpfHigh0-5PLicking Memorial HospitalComuniversity of michigan health on above:Performed By: #### SAULO UA #### [facility] ([id number]) [address] [facility], [address] [address]Fcdhgsr D+Metabolites [Mass/Vol]on 50-15-4145ORRVMZY D 25 HYD TOT48.1 ng/eAXxvdou52-558FjuLtymrg [facility] HospitalComuniversity of michigan health on above:Result Comment: Vitamin D status 25 [place] Vitamin D Deficiency <20 ng/mL Insufficiency 20-29 ng/mL Sufficiency 30-100 ng/mL Toxicity >100 ng/mL NOTE: A pediatric reference range has not been established by the lead burner of this kit. The [place] [employer] recommends a Vitamin D level of = or >20ng/mL in infants and children.Performed By: #### CBCA, [facility], 46279-7, 82532-5 #### [facility] ([id number]) [address] [facility], [address] [address]GM Heart Gated at rest and W radionuclide Karen 06-04-[address] [address] Nuclear Medicine Report Signed Patient: DAYSI DE LEON MR#: [id number] : 1935 Acct:[id number] Age/Sex: 88 / F ADM Date: 02/17/24 Loc: BOBBY Attending Dr: DEVIN COLE Ordering Physician: DEVIN COLE Date of Service: 02/17/24 Procedure(s): BOBBY bro Accession Number(s): [id number] cc: Shaikh Edgar Locke; DEVIN COLE The [address] [id number] Patient Name: DAYSI DE LEON MRN: [id number] date: 1935 Sex: F Assigned Patient Location: [place] Current Patient Location: Accession/Order Number: [id number] Exam Date: 02/17/2024 14:00 Report Date: 02/18/2024 08:55 At the request of: DEVIN COLE Procedure: NM muga NUCLEAR MEDICINE REST GATED [...] Signed By: 02/18/24 0857 DD/ 0855 TD/TT: Drop Wirer:TBHRadiology, Radiologist, MD - 02/19/2024 [place] [address] Nuclear Medicine Report Signed Patient: DAYSI DE LEON MR#: [id number] : 1935 Acct:[id number] Age/Sex: 88 / F ADM Date: 02/17/24 Loc: [place] Attending Dr: DEVIN COLE Ordering Physician: DEVIN COLE Date of Service: 02/17/24 Procedure(s): NM muga Accession Number(s): [id number] cc: Shaikh Edgar Locke; DEVIN COLE [address] [id number] Patient Name: DAYSI DE LEON MRN: [id number] date: 1935 Sex: F Assigned Patient Location: [place] Current Patient Location: Accession/Order Number: [id number] Exam Date: 02/17/2024 14:00 Report Date: 02/18/2024 08:55 At the request of: DEVIN COLE Procedure: NM muga NUCLEAR MEDICINE REST GATED [...] Brower M.D. Signed By: 02/18/24 0857 DD/ 4 TD/TT: Drop Wirer: NIYA LuRadiology Study observation (narrative)[facility] Heart Gated at rest and W radionuclide IVOrdered By: Radiologist Radiology on 16-28-4779IXFU [employer] Work Phone: nm STRESS/REST MULTIon 92-80-5482YY STRESS/REST MULTI Patient: DAYSI DE LEON Exam Date: 01/22/2023 : 1935 Gender:F Ordering : DR DEVIN COLE M.D. Admission #: [id number] Family : Order #: [id number] CLICK HERE TO VIEW EXAM RADIOLOGY REPORT [...] STUDY: Excellent. PERFUSION DEFECT: LOCATION: Apical anterior. [place]. SIZE: Small (1-2 segments). SEVERITY: Severe. TYPE: Persistent. WALL MOTION: Akinesis: Dyskinesis: [place]. LV SIZE: Normal. 73 mL. TID / [...] by: Ernie Mobley M.D. on 01/22/2023 at 14:48[facility] Medical CenterECHOCARDIO M/2D COMPLETEon 23-59-9744FPLFILPXCP M/2D COMPLETEPatient: HALEY DAYSI MayZita Exam Date: 01/04/2023 : 1935 Gender:F Ordering : DR DEVIN COLE M.D. Admission #: [id number] Family : Order #: [id number] CLICK HERE TO VIEW EXAM ECHOCARDIOGRAM REPORT [...] by: Devin Cole M.D. on 01/04/2023 at 16:02[facility] Medical CenterXR Bone Density (DEXA)on 54-03-8868WE Bone Density (DEXA) DranbaYNQJvcdu-CevpjVyu-Fbguzzq Total(g/cm2)(%)T-Score(%)Z-Score Femurs.31734-7.6119+1.0 Impression: The mean BMD and corresponding T-score indicated above indicate Low Bone Mass (Osteopenia) and places the patient at a mild to moderate increased risk for fracture. There may be a future risk of developing osteoporosis. Recommend follow-up exam in 1 year, sooner as clinically necessary. QcayyrMNYOhxmz-KzzigZzc-Esygjmv Total(g/cm2)(%)T-Score(%)Z-Score L1-L41.74384-1.4137+2.5 Impression: The mean BMD and corresponding T-score [...] and signed by Jack Lion on 02/27/2022 1033NormalNortNationwide Children's Hospital SpecialistMicroalbumin (with Creat)on 51-53-1785cCWZ<1.2LowNortherCleveland Clinic Foundation SpecialistComment on above:Result Comment: Unable to calculate mALB/Crea ratio, mALB is <1.2 mg/dL mALB reference range not established.Performed By: #### mALBC #### [facility] [address] [place], [place] [address]VMJXX07 mg/xYNfbpie31-491Zxlcnxsf [place] Billing Auditor Comment on above:Performed By: #### mALBC #### [facility] [address] [place], [place] [id number] Renal/Bladderon 04-88-3255IV Renal/BladderFINDINGS: Right Kidney7.4 x 4.5 x 4.0 cm Left Gxbszq53.8 x 5.1 x 5.7 cm Full bladder [...] and signed by Jack Lion on 12/04/2021 0937NormalSt. Helena Hospital [facility] SpecialistCoding Summaryon 86-71-3963Bctoxf SummaryHTMLBase 64 KfmtjcviRIl4eVq+PGhlYWQ+IF3TZLJmT16iqIWwwF5BK8iKNN4HWJZXCJGOVF5VFI3wfIT5DBhaC6Le biAv [file] ZGV (more content not included)...NormalMagruder HospitalProvider Orderson 36-51-2877Vccusfmt [id number]#1.00OTGTIFF NormalMagruder HospitalRad - Other Radiology Reporton 89-56-8369Nho - Other Radiology [id number]#1.00OTGTIFFNormal [facility] HospitalRad - Other Radiology Report [id number]#1.00OTKettering Health Behavioral Medical CenterRad - Other Radiology Reporton 28-11-0136Ncq - Other Radiology Report [id number]#1.00[facility] for RehabilitationOutside Recordson 66-40-1634Fxeborp Records [id number]#1.00[facility] Vital Signs Date TimeVital SignValuePerforming EoygdsfirJbrwwhrb62-09-1478 13:50-0400Body rsmfaj874.6 Anthony Hendrix MD Work Phone: [phone]10-14-2025 13:50-0400Body mass index (BMI) [Ratio]24.37 kg/i8WkcqafCassius Hendrix MD Work Phone: [phone] [place], [place] [address]Mvjixwsbty10-52-2489 13:50-0400Body bvsiye58.41 kgCassius Hendrix MD Work Phone: [phone] [place], [place] [address]Okftntuizu12-82-4658 13:50-0400Heart rate52 /min Cassius Hendrix MD Work Phone: [phone] [place], [place] [address]Gaogvijieh36-06-1282 13:50-3958KvE1% (BldA) [Mass fraction]98 %Cassius Hendrix MD Work Phone: [phone] [place], [place] [address]Eibwzkmjcb80-48-9339 13:53-0400Body .6 Anthony Hendrix MD Work Phone: [phone] [place], [place] [address]Xcqbtuairl20-64-3437 13:53-0400Body mass index (BMI) [Ratio]24.89 kg/g9WikfpkCassius Hendrix MD Work Phone: 1(946)[address] [place], [place] [address]Xlzfnqzwso89-24-1082 13:53-0400Body .77 kgCassius Hendrix MD Work Phone: 1(415)[address]07-15-2025 13:53-0400Heart rate75 /min Cassius Hendrix MD Work Phone: [phone] [place], [place] 1642307-15-2025 13:53-6448BcC6% (BldA) [Mass fraction]95 %Cassius Hendrix MD Work Phone: 1(356)[address] [place], [place] 1642304-22-2025 13:42-0400Body mfvomh543.6 cmEnikkie Hendrix MD Work Phone: [phone])[address] [place], [place] 1642304-22-2025 13:42-0400Body mass index (BMI) [Ratio]24.89 kg/l8OsflmoCassius Hendrix MD Work Phone: 1(090)[address] [place], [place] 1642304-22-2025 13:42-0400Body lzhnul53.77 kgCassius Hendrix MD Work Phone: [phone] [place], [place] 1642301-29-2025 14:02-0500Body .6 cmEnikkie Hendrix MD Work Phone: [phone] [place], [place] 1642301-29-2025 14:02-0500Body mass index (BMI) [Ratio]24.89 kg/y7UqgeicCassius Hendrix MD Work Phone: [phone])[facility] [place], [place] [address]Zcsypcgjku04-93-1858 14:02-0500Body ajnciy82.77 kgCassius Hendrix MD Work Phone: 1(580)[facility] [place], [place] [address]Nmihzvmtkx49-53-6215 14:02-0500Heart rate66 /min Cassius Hendrix MD Work Phone: 1(024)[facility] [place], [place] [address]Gewtzqqfnu09-39-8502 14:02-9504SbJ0% (BldA) [Mass fraction]97 %Cassius Hendrix MD Work Phone: [phone])[address] [place], [place] 164[address]10-29-2024 15:36-0400Body ugnuix109.6 cmEnikkie Hendrix MD Work Phone: [phone])[facility] [place], [place] [address]Tydeiibaax10-05-5298 15:36-0400Body mass index (BMI) [Ratio]24.98 kg/q7KleypfCassius Hendrix MD Work Phone: 1(200)[facility] [place], [place] [address]Akdhzvytvu98-62-9957 15:36-0400Body whaskp19 kg Cassius Hendrix MD Work Phone: [phone] [place], [place] 1642310-17-2024 14:22-0400Body cclfgo328.6 cmEnikkie Hendrix MD Work Phone: [phone][facility]'s HospitalUfzxjqrvvu23-98-2164 14:22-0400Body mass index (BMI) [Ratio]24.98 kg/o7FewfhtCassius Hendrix MD Work Phone: 1(236)[facility] [place], [place] [address]Khxtgjewui53-51-6236 14:22-0400Body bckozy07 kg Cassius Hendrix MD Work Phone: 1(218)[facility] [place], [place] [address]Vldtqkzses94-57-2269 14:22-0400Diastolic blood olibqlvu24 mm[Hg]Cassius Hendrix MD Work Phone: 1(936)[facility] [place], [place] [address]Amxilzrtae71-57-0013 14:22-0400Heart rate87 /min Cassius Hendrix MD Work Phone: 1(384)[facility] [place], [place] [address]Mxjbhiqdoa32-40-9833 14:22-0988TvR2% (BldA) [Mass fraction]98 %Cassius Hendrix MD Work Phone: 1(760)[facility] [place], [place] [address]Ajhuifgdsr54-99-2705 14:22-0400Systolic blood qtnasoou254 mm[Hg]Cassius Hendrix MD Work Phone: 1(861)[facility]-[address]16St[facility] Luke's HospitalQxtcgjsnwj00-13-2673 09:29-0400Body aiyygd996.6 cmJose Monsivaispatrick CUTTER OPERATOR HELPER Work Phone: [facility] HospitalLkzgikbqgf25-53-9548 09:29-0400Body mass index (BMI) [Ratio]24.89 kg/i0Cmrbojyh Maddox CUTTER OPERATOR HELPER Work Phone: [place] [address]Rvhuvrtmgc82-23-0058 09:29-0400Body temperature 97.2 [degF]Jose Beverlyzpatrick CUTTER OPERATOR HELPER Work Phone: [place] [address]Qrjguwlnii74-51-7034 09:29-0400Body kscdxa94.77 kgJose Beverlyzpatrick CUTTER OPERATOR HELPER Work Phone: [place] [address]Xsxbwlnool23-14-9341 09:29-0400Diastolic blood iitzrlou22 mm[Hg]Jose Beverlyzpatrick CUTTER OPERATOR HELPER Work Phone: noJohn J. Pershing VA Medical CenterLddhizfyja58-37-0992 09:29-0400Heart rate92 /min Jose Beverlyzpatrick CUTTER OPERATOR HELPER Work Phone: noNV Adelchques86-25-9920 09:29-0400Systolic blood dmhsrzed984 mm[Hg]Jose Beverlyzpatrick CUTTER OPERATOR HELPER Work Phone: [facility] Encounters Encounter DateEncounter TypeCare ProviderFacilityStart: 08-02-2025 End: 29-63-0747Wjrydm Georgette Hendrix MD Work Phone: [facility] [place] [address] Family MedicineStart: 08-02-2025 End: 11-69-8865Gwlqkz Georgette Hendrix MD Work Phone: [facility] [place] [address] Family MedicineStart: 07-13-2025 End: 70-61-2103Iecnksgraham Hendrix MD Work Phone: [facility] [place] [address] Family MedicineStart: 07-13-2025 End: 70-83-7995Tfiibr Georgette Hendrix MD Work Phone: [facility] [place] [address] Family MedicineStart: 07-13-2025 End: 49-07-9711Qdzwro outpatient visit 40 minutesCassius Hendrix MD Work Phone: [facility] [place] [address] Family MedicineComment on above:Chronic pain syndrome; Controlled substance agreement signed; Type 2 diabetes mellitus with stage 3b chronic kidney disease, without long-term current use of insulin (HCC); Paroxysmal atrial fibrillation (HCC); PolypharmacyStart: 07-13-2025 End: 13-79-7029tmllitipkqQKYFAN J HEMEYERSaint Luke'S Hospital AvailableStart: 07-06-2025 End: 69-87-1042lecimacajvOIZG Core[facility] Hospitaltart: 05-24-2025 End: 83-20-1956lovfkmujusFQABSC J HEMEYERMadison Healthtart: 05-11-2025 End: 32-71-3926wyvujujaehGOHLSelect Medical Specialty Hospital - Cantontart: 30-66-9221cikuzmlvmgQNCZD GRUBBUniThe Surgical Hospital at Southwoodstart: 04-13-2025 End: 49-60-4683Srxouq outpatient visit 25 minutesEdandry Hendrix MD Work Phone: [facility] CI FM 100Comment on above:Chronic pain syndrome (Primary Dx); Lumbosacral spondylosis without myelopathy; Postural kyphosis of cervicothoracic region; Type 2 diabetes mellitus with stage 3b chronic kidney disease, without long-term current use of insulin (HCC); Chronic constipationStart: 04-13-2025 End: 32-32-7656NblmeyPffcqt J Hemeyer MD Work Phone: [facility] CI FM 100Comment on above:Type 2 diabetes mellitus with stage 3b chronic kidney disease, without long-term current use of insulin (HCC)Start: 03-18-2025 End: 87-98-0230OkovyuMlwtgw J Hemeyer MD Work Phone: [facility] CI FM 100Comment on above:Type 2 diabetes mellitus with stage 3b chronic kidney disease, without long-term current use of insulin (HCC)Start: 03-09-2025 End: 73-41-5308VzmzyfRmwpau J Hemeyer MD Work Phone: [facility] CI FM 100Comment on above:Chronic pain syndrome Start: 03-01-2025 End: 57-03-1169qmdhwwqocxOZTNGN MOUKARBELHolzer Medical Center – Jackson Start: 02-23-2025 End: 86-20-6159Nqslvbuyj Result EncounterGeneric External Data ProviderNOMS External Department UnsolicitedStart: 02-23-2025 End: 67-75-8735Wqfrziwti Result EncounterGeneric External Data ProviderNOMS External Department UnsolicitedStart: 02-09-2025 End: 12-83-7131fqreergxnpNZGISelect Medical Specialty Hospital - Cantontart: 82-49-4698lkmcavuzutXBGWSelect Medical Specialty Hospital - Cantontart: 01-19-2025 End: 27-95-3502Wjprxu Georgette Hendrix MD Work Phone: [phone] CI FM 100Start: 01-19-2025 End: 93-84-8917Msgmoq Georgette Hendrix MD Work Phone: [phone] CI FM 100Start: 01-19-2025 End: 86-47-2305Clfhmy outpatient visit 25 minutesCassius Hendrix MD Work Phone: [phone] CI FM 100Comment on above:Chronic constipation (Primary Dx); Chronic pain syndrome; Lumbosacral spondylosis without myelopathy; Controlled substance agreement signed; Type 2 diabetes mellitus with stage 3b chronic kidney disease, without long-term current use of insulin ([facility]) ([facility]); PolypharmacyStart: 01-19-2025 End: 73-81-0382ikiqrvlpqtWECQIS J HEMEYERNot AvailableStart: 11-18-2024 End: 45-69-5414Vmtxtbg encounter procedureNoSaint John's [facility] Aud [facility] [place] CI AUDComment on above:Asymmetrical sensorineural hearing loss (Primary Dx)Start: 11-18-2024 End: 68-26-6812laxtjplmtoRMIYNG HEMEYERNot AvailableStart: 11-03-2024 End: 01-68-8394Lrhblabdy Ab Hendrix MD Work Phone: [phone] CI FM 100Start: 10-28-2024 End: 40-86-1731Pheopggraham Hendrix MD Work Phone: [phone] CI FM 100Start: 10-28-2024 End: 79-79-9380Bfvbqt Georgette Hendrix MD Work Phone: [phone] CI FM 100Start: 10-28-2024 End: 80-49-0187Cpwhqr outpatient visit 40 minutesCassius Hendrix MD Work Phone: [phone] CI FM 100Comment on above:Chronic pain syndrome (Primary Dx); Lumbosacral spondylosis without myelopathy; Postural kyphosis of cervicothoracic region; Controlled substance agreement signed; Polypharmacy; Type 2 diabetes mellitus with stage 3b chronic kidney disease, without long-term current use of insulin (HCC) ([facility])Start: 10-28-2024 End: 63-18-5773nqahmoplvfPVQFQPMadison Mejía AvailableStart: 10-21-2024 End: 01-45-2636ilqmycwebgERCVPT HEMEYERNot AvailableStart: 10-21-2024 End: 78-23-1709Shgjmmz encounter procedureNoms Aud Audiology Aid - [place] Jana CI AUDComment on above:Asymmetrical sensorineural hearing loss (Primary Dx)Start: 09-14-2024 End: 37-21-3084cyoyglexvrGpupqc M GrobFacility:[facility] Start: 09-14-2024 End: 81-21-5985warokoffnbUWBLUU [facility]Kit[facility] Start: 09-11-2024 End: 52-69-4315Dfrlifrfa Result EncounterGeneric External Data ProviderNOMS External Department UnsolicitedStart: 09-11-2024 End: 34-63-8972Tthldgnum Result EncounterGeneric External Data ProviderNOMS External Department UnsolicitedStart: 09-09-2024 End: 91-01-6507uinzdkxbxxBEVWUBA A MCGILLNot AvailableStart: 09-09-2024 End: 22-35-7373Kytnys flowsheetMaikodessa [facility] center [facility] Work Phone: NOM[facility] CI AUDStart: 09-09-2024 End: 94-36-2098Bdabwd flowsMilana Yadira [facility]ChitraCar[facility] Work Phone: [facility] CI AUDStart: 09-09-2024 End: 19-50-4467Aotaewti SupportDeefrain Shin [facility] Work Phone: [facility] CI AUDComment on above:Asymmetrical sensorineural hearing loss (Primary Dx)Start: 08-25-2024 End: 86-94-0610kcguajqnjyJLMA Corey Hospitaltart: 08-19-2024 End: 83-85-6231Cbloosr encounter procedureNoms Aud Audiology Aid - [place] DodrillNOMS CI AUDComment on above:Asymmetrical sensorineural hearing loss (Primary Dx)Start: 08-19-2024 End: 00-13-3284wjducvryxvTIELCZ HEMEYERNot AvailableStart: 08-12-2024 End: 53-67-0108Rfnlavzey Result EncounterGeneric External Data ProviderNOMS External Department UnsolicitedStart: 08-12-2024 End: 00-33-2133Dldhuhdjl Result EncounterGeneric External Data ProviderNOMS External Department UnsolicitedStart: 07-28-2024 End: 47-58-8028Umeuuo outpatient visit 25 minutesEdandry Hendrix MD Work Phone: [facility] CI FM 100Comment on above:Chronic pain syndrome (Primary Dx); Lumbosacral spondylosis without myelopathy; Postural kyphosis of cervicothoracic region; Controlled substance agreement signed; Medication monitoring encounter; PolypharmacyStart: 07-28-2024 End: 11-84-1721pzaftsdeorLGCYFJ J HEMEYERNot AvailableStart: 07-28-2024 End: 98-70-8072Pbdfgv flowsJose A Hendrix MD Work Phone: [facility] FM 100Start: 07-28-2024 End: 36-77-8218Sjxhtf flowsJose A Hendrix MD Work Phone: [facility] FM 100Start: 07-22-2024 End: 19-25-0001dxouodanedZURJDI HEMEYERNot AvailableStart: 07-22-2024 End: 28-87-1370Meaucqc encounter procedureNoms Aud Audiology Aid - Charlotte DodrillNOMS CI AUDComment on above:Asymmetrical sensorineural hearing loss (Primary Dx)Start: 07-16-2024 End: 74-81-6011Zbfntew encounter Tracie Hendrix MD Work Phone: [facility] CI FM 100Comment on above:Encounter for Medicare annual wellness exam (Primary Dx); Advance directive discussed with patient; Encounter for screening for other disorder; Screening for alcohol problem; Ventricular tachycardia (CMS/HCC); Primary hypertension (CMS/HCC); Ischemic cardiomyopathy (CMS/HCC); 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); Chronic systolic heart failure (CMS/HCC); Atherosclerosis 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 pectoris (CMS/HCC); 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); Type 2 diabetes mellitus with stage 3b chronic kidney disease, without long-term current use of insulin (HCC) ([facility]/HCC); Mixed hyperlipidemia ([facility]/HCC)Start: 07-16-2024 End: 87-15-8712qgokjnwjvmSMYUYG J HEMEYERNot AvailableStart: 07-14-2024 End: 57-98-6771dngwrxyxgwKOEBJUO Phyllis LIGIBELProUniversity Hospitals [facility] HospitalStart: 07-13-2024 End: 45-78-8000Qlpgff flowsheetMariela May [facility] Work Phone: noMS AUDStart: 07-13-2024 End: 49-16-0126Leaqae flowsheetPse&G [facility] Yadira [facility] Work Phone: NOMS AUDStart: 07-13-2024 End: 97-82-4029Wnqguuhgs encounterEast Orange Va Medical Centernicholas May [facility] Work Phone: NOMS AUDStart: 07-13-2024 End: 22-39-5360Odpcwwqq SupportEast Orange Va Medical Centernicholas May [facility] Work Phone: noMS AUDComment on above:Asymmetrical sensorineural hearing loss (Primary Dx)Start: 06-24-2024 End: 15-52-4117hmjysdvbhoOXVKP N VERHOFFProMedica Gladwin HospitalStart: 06-24-2024 End: 92-56-5528bvgsfamboqBYXOPNVR N FITZPATRICKProMedica Gladwin HospitalStart: 06-18-2024 End: 31-69-1057TjhbkpSamm Maddox CUTTER OPERATOR HELPER Work Phone: N[facility] CWM FMComment on above:Lumbosacral spondylosis without myelopathy (Primary Dx)Start: 06-16-2024 End: 43-99-1840Nfdhckgraham Maddox CUTTER OPERATOR HELPER Work Phone: noms CWM FMStart: 06-16-2024 End: 84-74-1408Ssbpko flowsheetJose Beverlyzpatrick CUTTER OPERATOR HELPER Work Phone: noms CWM FMStart: 06-16-2024 End: 79-97-9762Mghyfl outpatient visit 15 minutesJose Varsha CUTTER OPERATOR HELPER Work Phone: noms CWM FMComment on above:Other chronic pain (Primary Dx); 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); Type 2 diabetes mellitus with stage 3a chronic kidney disease, without long-term current use of insulin (HCC) (CMS/HCC); Hyperlipidemia, unspecified hyperlipidemia type (CMS/HCC)Start: 05-05-2024 End: 97-85-4550Yyhenridq encounterSyoselyn Locke MD Work Phone: noms FMStart: 02-18-2024 End: 98-36-2854Covvjqsyt Result EncounterGeneric External Data ProviderNOMS External Department UnsolicitedStart: 02-18-2024 End: 53-90-7250Xkncblnpd Result EncounterGeneric External Data ProviderNOMS External Department UnsolicitedStart: 02-18-2023 End: 77-34-7536Rqhlx of hemosiderin, Erlin Locke MD Work Phone: noms HealthcareStart: 02-12-2023 End: 98-80-6140nnodqcbonjPA CHUYITA PETERSFacility:Z9Haywp: 01-22-2023 End: 81-64-2477ngdfvrulblHV CHUYITA PETERSFacility:T1Wahex: 01-04-2023 End: 22-03-4160tglaahaaxjJR CHUYITA PETERSFacility:S4Szbru: 15-57-4163Dxskoie encounter procedureEstrellita Greencility:9101Start: 08-27-2018 End: 46-68-4295Hrtvtds encounter procedureDEFAULT PHYSICIANFacility:UTMCStart: 06-16-2018 End: 43-89-0193Vvowwac encounter procedureDEFAULT PHYSICIANFacility:UTMCStart: 05-26-2018 End: 74-35-7903Qeizsxy encounter procedureDEFAULT PHYSICIANFacility:[facility] Procedures DateProcedureProcedure DetailPerforming ClinicianStart: 77-78-8184HH ECHO DOPPLER COMPLETEGeneric External Data ProviderStart: 50-51-4118UR ECHO DOPPLER COMPLETEGeneric External Data ProviderStart: 65-88-4883HNG LIPID PROFILE (FASTING)Generic External Data ProviderStart: 83-07-4014FZN ALTGeneric External Data ProviderStart: 92-38-7121SUZ ASTGeneric External Data ProviderStart: 99-46-7602Wvvg test prsmv read direct optical obs pr Erin Hendrix MD Work Phone: Start: 16-88-5158GJQZWVPA FUNCTION TESTSMariela Shin [facility] Work Phone: start: 39-21-1874FP Heart Gated at rest and W radionuclide IVGeneric External Data Provider Plan of Treatment DateCare ActivityDetailAuthorStart: 12-11-2025 End: 03-80-0275Qsrcbsrohmysq metabolic 2000 panel - Serum or PlasmaComprehensive metabolic panel Lab Routine Chronic pain syndrome Type 2 diabetes mellitus with ixgrd9b chronic kidney disease, without long-term current use of insulin (HCC) Expected: 12/11/2025, Expires: 03/11/2026NOMS HealthcareComment on above: Expected: 12/11/2025, Expires: 03/11/2026Start: 12-11-2025 End: 50-28-4128Zaskurjwnp A1c/Hemoglobin.total in BloodHemoglobin A1c Lab Routine Type 2 diabetes mellitus with stage 3b chronic kidney disease, without long-term current use of insulin (HCC) Expected: 12/11/2025, Expires: 03/11/2026 NOMS HealthcareComment on above:Expected: 12/11/2025, Expires: 03/11/2026Start: 12-11-2025 End: 64-26-0895Uwwxw 1996 panel - Serum or PlasmaLipid panel Lab Routine Type 2 diabetes mellitus with stage 3b chronic kidney disease, without long-term current use of insulin (HCC) Expected: 12/11/2025, Expires: 03/11/2026NONV Healthcare Work Phone: Comment on above:Expected: 12/11/2025, Expires: 03/11/2026Start: 10-12-2025 End: 05-29-2294Karjwxo encounter /13/2026 2:00 PM EST [facility] [address] [place] [address] Cassius Hendrix MD [address] [facility] [address] [place] [address] [facility] [place] Cee [facility] MedicineStart: 37-06-6233Ijvucipcae A1c measurementDiabetes: Hemoglobin H6GUKVFJohn J. Pershing [facility] Start: 10-05-2025 End: 21-22-2260Upagrpv encounter dedtewlgz05/06/2026 11:00 AM EST Office Visit [facility]Galye Cee [address] [place] [address] Cassius Hendrix MD 112 [facility] [address] [place] [phone] (Work) (Fax)[facility]TSGayle Cee [facility] MedicineStart: 96-79-3921HVHDT-19 Vaccine ( season)COVID-19 Vaccine ( season)NOM HealthcareStart: 08-02-2025 End: 04-34-0410Ezpmhjc encounter procedureNONV [place] Cee [facility] MedicineComment on above:Encounter for Medicare annual wellness exam; Advance directive in chart; Encounter for screening for other disorder; Screening for alcohol problem; Screening for osteoporosis; Menopause; PolypharmacyStart: 10-17-2025Medicare Annual Wellness (AWV)Medicare Annual Wellness (AWV)NOM HealthcareStart: 17-08-8470Tdlcadsipp A1c measurement Diabetes: Hemoglobin O5WSVFT HealthcareStart: 07-13-2025 End: 48-17-6330Znjqpvb encounter procedureNOMS CI FM 100Comment on above:Chronic pain syndrome; Controlled substance agreement signed; Type 2 diabetes mellitus with stage 3b chronic kidney disease, without long-term current use of insulin (HCC); Polypharmacy; Paroxysmal atrial fibrillation (HCC)Start: 74-12-9277Pnrhc screening for protein Diabetes: Urine Protein ScreeningDAVIS [facility] AND [facility] HealthcareStart: 10-41-9008OBLZX-19 Vaccine ( season)COVID-19 Vaccine ()[facility] HealthcareStart: 33-46-6296Ojwifpiki vaccinationInfluenza Vaccine (#1)[facility] HealthcareStart: 32-41-0268Smgssllj screeningDiabetes: Retinopathy ScreeningNONV HealthcareStart: 04-13-2025 End: 99-09-9245Idcvgmp encounter procedureNOGOLDEN VALLEY [facility] FMStart: 01-19-2025 End: 59-04-8179Qgnsogxniyvjb metabolic 2000 panel - Serum or PlasmaComprehensive metabolic panel Lab Routine Type 2 diabetes mellitus with stage 3b chronic kidney disease, without long-term current use of insulin ([facility]) ([facility]) Expected: 01/19/2025 (Approximate), Expires: 01/19/2026[facility] Work Phone: Comment on above:Expected: 01/19/2025 (Approximate), Expires: 01/19/2026Start: 01-19-2025 End: 20-32-7668Ilqpomewwb A1c/Hemoglobin.total in BloodHemoglobin A1c Lab Routine Type 2 diabetes mellitus with stage 3b chronic kidney disease, without long-term current use of insulin ([facility]) ([facility]) Expected: 01/19/2025 (Approximate), Expires: 01/19/2026[facility] HealthcareComment on above:Expected: 01/19/2025 (Approximate), Expires: 01/19/2026Start: 01-19-2025 End: 56-00-2622Fyjquvf encounter procedureNONV CI FM 100Comment on above:Chronic pain syndrome; Lumbosacral spondylosis without myelopathy; Controlled substance agreement signed; Polypharmacy; Type 2 diabetes mellitus with stage 3b chronic kidney disease, without long-term current use of insulin (HCC) ([facility])Start: 31-39-0500Kjbnz screening for proteinDiabetes: Urine Protein ScreeningDAVIS [facility]OS[facility] HealthcareStart: 12-15-2024 End: 71-74-3856Iyrkmsc encounter iwyllluui88/18/2025 9:30 AM EDT Office Visit [facility] [address] [place] [phone] Jose Maddox, REBECCA [address] [place] [address] [facility] CWM FMStart: 11-18-2024 End: 79-31-7887Zctrsqi encounter izrvtykyb36/19/2025 1:30 PM EST Office Visit [facility] AUD [address] [place] [address] NOM[facility] CI AUDStart: 10-28-2024 End: 95-20-2667Mfmzoasgdf A1c/Hemoglobin.total in BloodHemoglobin A1c Lab Routine Type 2 diabetes mellitus with stage 3b chronic kidney disease, without long-term current use of insulin ([facility]) ([facility]) Expected: 10/28/2024 (Approximate), Expires: 10/28/2025NONV Healthcare Work Phone: Comment on above:Expected: 10/28/2024 (Approximate), Expires: 10/28/2025Start: 10-28-2024 End: 11-76-8211Hewcqhl encounter procedureNOMS CI FM 100Comment on above: Lumbosacral spondylosis without myelopathy; Postural kyphosis of cervicothoracic region; Controlled substance agreement signed; PolypharmacyStart: 10-26-2024 End: 64-08-9580Zktfndw encounter procedureNOMS CI FM 100Start: 10-21-2024 End: 34-80-5382Kcoxcnd encounter zvylbenbl03/22/2025 2:30 PM EST Office Visit [facility] AUD [address] [place] [phone] NOMS CI AUDStart: 14-59-3474Dtgmhbldbr A1c measurementDiabetes: Hemoglobin W0MDLYL HealthcareStart: 46-70-8930Bimdhjtia vaccinationInfluenza Vaccine (#1)NOMS HealthcareComment on above:Postponed from 05/31/2024 (Patient Refused)Start: 09-09-2024 End: 39-28-8938Uavcbwis Infndss2109/09/2024 2:00 PM EST Clinical Support [facility] AUD [address] [place] [address] Mariela Shin, [facility] [address] [place] [address] ArrivedNOMS CI AUDComment on above:ArrivedStart: 08-19-2024 End: 04-63-6239Hmqcoee encounter procedureNOMS CI AUDStart: 07-28-2024 End: 81-12-7000Uyemiof encounter procedureNOMS CI FM 100Comment on above:Arrived Start: 07-16-2024 End: 91-98-5165Ioxsfil encounter punenlitq93/17/2024 2:00 PM EDT Office Visit [facility] [address] [place] [address] Cassius Hendrix MD [address] [place] [address] [facility] CI FM 100Start: 07-15-2024 End: 96-04-7451Eqquxtb encounter violavozm75/16/2024 11:30 AM EDT Office Visit [facility] ENT [address] [facility] [address] [place] [address] Ada Bob MD [address] [facility] [address] [place] [address] NOMS CI ENTStart: 07-13-2024 End: 40-54-3503Pkmqnarn Pxhkmcn2607/13/2024 1:00 PM EDT Clinical Support [facility] SH AUD [address] [facility] [place] [address] Mariela Shin, [facility] [address] [place] [address] NOMS SH AUDStart: 06-16-2024 End: 58-12-3522Hwimurg encounter procedureNOJEFFERSON COUNTY HOSPITAL – WAURIKAM FMComment on above:Arrived Start: 46-69-4202Tqrtovzae vaccinationInfluenza Vaccine (#1)[facility] Healthcare Start: 23-47-0178LIsR/Tdap/Td Vaccines (2 - Td or Tdap)DTaP/Tdap/Td Vaccines (2 - Td or Tdap)[facility] Immunizations Immunization DateImmunizationNotesCare ZibidlrmHofbjcna58-18-1339kszjwotav, high dose seasonal, preservative-freeCassius Hendrix MD Work Phone: [facility] HospitalPirztcjued63-28-9210MBZ, recombinant, protein subunit RSVpreF, adjuvant reconstitu, 120mcg/0.5mL, PF (Arexvy)[facility] Work Phone: [facility] HospitalTuhfiuptvu49-16-7208jtqvrpfjg, high dose seasonal, preservative-freeDNortheast Georgia Medical Center [facility] Work Phone: [facility] HospitalRdxbugiiyj41-38-8838qviibuhsm virus vaccine, unspecified formulationGeneric ProviderSt. Luke's HospitalHhrimaieau24-04-2767cffnurn toxoid, reduced diphtheria toxoid, and acellular pertussis vaccine, adsorbedBrittmikhail Harpk CUTTER OPERATOR HELPER Work Phone: [facility] HospitalMtlvmzesyh20-32-6914Wcqghzotp, Seasonal, Quadrivalent, AdjuvantedSyoselyn Locke MD Work Phone: [facility] HospitalPwrlhcpivk54-67-5215tmjyadgyk virus vaccine, unspecified formulationSyoselyn Locke MD Work Phone: [facility] HospitalZtljxyxlsj40-41-1965Hrkpvkw SARS-CoV-2 Booster VaccinationSyoselyn Locke MD Work Phone: [facility] HospitalHvesmlfxmr39-32-4046Xrqckiivz, High-dose Seasonal, Quadrivalent, Preservative FreeShaikh Chucky FITZPATRICK Work Phone: [facility] HospitalFtsgarabxe80-24-8741MWBN-EdB-6, UnspecifiedShaikh Chucky FITZPATRICK Work Phone: [facility] HospitalXoaaumqkld65-94-9591Slnyiolpd, High-dose Seasonal, Quadrivalent, Preservative Kylie Locke MD Work Phone: [phone]. [facility]'s HospitalYvanesjajy23-92-7090Rvsbwlebb, Seasonal, Quadrivalent, AdjuvantAmandeep Locke MD Work Phone: [phone] [place], [place] [address]Sdaupokshe00-06-4611vmhojuyignmd conjugate vaccine, 13 valentSyoselyn Locke MD Work Phone: [phone] [place], [place] [address]Dxcxeetwie74-41-1798hsnysmuwy, seasonal, injectable, preservative Kylie Locke MD Work Phone: [phone] [place], [place] [address]Usfphvotcf80-47-7026prgudnzbi, injectable, quadrivalent, preservative Kylie Locke MD Work Phone: [phone] [place], [place] [address]Ncwgllplef43-61-9020Wdwrkzymd, Seasonal, Quadrivalent, AdjuvantedSyoselyn Locke MD Work Phone: [phone] [place], [place] [address]Frmobptmzd66-63-6542kznhxccvv, injectable, quadrivalent, preservative Kylie Locke MD Work Phone: [phone] [place], [place] [address]Ydbnlippbs44-83-8041Qjfjwkgg trivalent influenza vaccine, adjuvanted, preservative Kylie Locke MD Work Phone: [phone] [place], [place] [address]Fbjvmsttdt96-36-7345bubcpk vaccine recombinant Shaikh Chucky FITZPATRICK Work Phone: [phone] [place], [place] [address]Zyddrcgkxk35-19-6574oabkmc vaccine recombinant Shaikh Chucky FITZPATRICK Work Phone: [phone] [place], [place] [address]Ybrmuxheaj25-64-8610dsnzcpcyh, injectable, quadrivalent, preservative Kylie Locke MD Work Phone: [facility] HospitalNpljpzpske93-03-0042ioxugayim, high dose seasonal, preservative-Kylie Locke MD Work Phone: [phone] [place], [place] [address]Vherysgnot51-49-7793Rxmzfzhme, High-dose Seasonal, Quadrivalent, Preservative Kylie Locke MD Work Phone: [phone] [place], [place] [address]Elrwbaugvg02-57-7335hzjufbcxd, high dose seasonal, preservative-Kylie Locke MD Work Phone: [phone] [place], [place] [address]Vowcmamhsj42-43-2490szisjgpez, high dose seasonal, preservative-Kylie Locke MD Work Phone: [phone] [place], [place] [address]Xscaxzihwq69-59-9101drbbvyehjrba conjugate vaccine, 13 [place] Locke MD Work Phone: [phone] [place], [place] [address]Lrfweaqkog61-51-7555reihwdxnpgsn conjugate vaccine, 13 [place] Locke MD Work Phone: [phone] [place], [place] [address]Kipfuvketn13-82-8053dwcqkbsj influenza, intradermal, preservative Kylie Locke MD Work Phone: [phone] [place], [place] [address]Dtunbliivw33-04-0640cfjgkahjf, high dose seasonal, preservative-freeShaikh Chucky FITZPATRICK Work Phone: [phone] [place], [place] [address]Jngabzwpql32-29-6708xtcwplvgtjkr polysaccharide vaccine, 23 [place] Locke MD Work Phone: [phone] [place] [address] Payers DatePayer CategoryPayerPolicy [id number]-pay2022MedicareANTHEM MEDICARE ADVANTAGE ANTHEM MEDICARE ADVANTAGE [id number] 2021-Present [address] [place] [id number] 2022Medicare (Managed Care)[employer]M MEDICARE ADVANTAGE [id number] [id number] 2.840.1.696164.3.57[id number] 2.840.1.666668.3.57[id number] 2.0.1.542679.3.57[id number] 2.840.1.824342.3.57[id number] 2.840.1.698586.3.57[id number] 2.0.1.756310.3.579.[id number] 2.840.1.695183.3.57[id number] 2.840.1.801695.3.57[id number] 2.840.1.897912.3.57[id number] 2.840.1.212614.3.579.[id number] 2.840.1.743317.3.579.[id number] 2.840.1.009877.3.57[id number] 2.16.840.1.152008.3.57[id number] 2.16.840.1.918107.3.579.2.413685-11-4378Seupvgg1785607 2.840.1.923280.3.57[id number] 2.16840.1.567462.3.579.2.096440-15-0636Vntfzqd6669916 2.840.1.836497.3.579.2.830531-34-2988Fiooctz7530620 2.840.1.228114.3.579.2.831427-31-0113Slccyfb6265153 2.840.1.061146.3.579.2.472146-99-7574Dvwzgip1745841 2..840.1.871147.3.579.2.976500-06-4713Pyegqkf0956597 2.840.1.443171.3.579.2.308575-99-2354Slorxji2325207 2.840.1.077195.3.579.2.5665DxjgijxSqrjmk[id number] 2.840.1.842754.3.579.2.531 Social History DateTypeDetailFacilityStart: 01-31-2023 End: 97-02-5180Vnzaxxo smoking status NHISNever smoked tobaccoNOMS Healthcare Start: 01-31-2023 End: 09-80-9943Rgpkqit use and exposureSmokeless tobacco non-userNOMS Healthcare Start: 06-16-2024 End: 60-23-5925Tuyuflian beverage intakeLifetime non-drinker (finding)NOMS HealthcareStart: 02-18-2023 End: 29-82-1844Fqvankv of Social functionNOMS HealthcareStart: 02-18-2023 End: 10-65-4460E5502 Health LiteracyNONV HealthcareStart: 26-00-6608Xzy often do you need to have someone help you when you read instructions, pamphlets, or other written material from your doctor or pharmacy [SILS]SometimesNOMS HealthcareWithin the last year, have you been afraid of your partner or ex-partner?NoNOMS HealthcareAre you now , , , , never or living with a partner?MarriedNOMS HealthcareHow often to you have a drink containing alcohol?NeverNOMS HealthcareDo you feel stress - tense, restless, nervous, or anxious, or unable to sleep at night because yourmind is troubled all the time - these days [OSQ]Not at allNOMS Healthcare(I/We) worried whether (my/our) food would run out before (I/we) got money to buy more.Never trueNOMS HealthcareIn the past 12 months, was there a time when you were not able to pay the mortgage or rent on time?YesNONV HealthcareStart: 01-31-2023 Alcohol CommentcaffeineNONV HealthcareStart: 08-66-6944Syn assigned at birthNot on fileNONV HealthcareHow hard is it for you to pay for the very basics like food, housing, medical care, and heatingNot very hardNOMS HealthcareHow often do you need to have someone help you when you read instructions, pamphlets, or other written material from your doctor or pharmacy [SILS]SometimesNOMS HealthcareAre you now , , , , never or living with a partner?WidowedNONV HealthcareNEGATED: Highlighted rowStart: DAVIDF History of tobacco usePassive smokerNONV Healthcare Medical Equipment Procedure CodeEquipment CodeEquipment Original TextEquipment IdentifierDates1 each by Other route in the morning and 1 each in the evening and 1 each before bedtime.[id number]: 06-16-2024 End: 51-46-9444MDD TO TEST BLOOD SUGAR ONCE [id number]: 81-36-3351Nzfcs BS bid [id number]: 86-82-6293Mxskx BS bid [id number]: 10-28-2024 Functional Status HrfvFpkyyhcwkyTsyzeuQqvolnln81-91-6844Gpqluxe Health Questionnaire 2 item (PHQ- 2) [Reported][facility] HospitalBvcbtfydwd67-97-0000Rejjd score [AUDIT-C]0 06/16/2024 9:02 AM EDT Mychart, GenericSt. Luke's HospitalKigbxsbzag76-09-6640Zxq often do you have a drink containing alcohol?Never 06/16/2024 9:02 AM EDT Mychart, Generic NeverSt. Luke's HospitalVcdwjrsfoi80-87-9213Emilsweqfw statusPatient does not drink 06/16/2024 9:02 AM EDT Mychart, Generic Patient does not drinkSt. Luke's HospitalNnrcyeixld25-28-9214Set often do you have 6 or more drinks on 1 occasion?Never 06/16/2024 9:02 AM EDT Mychart, Generic [facility] HospitalFxpjfhclkj78-64-8723Hjegmsk Health Questionnaire 2 item (PHQ- 2) [Reported][facility] Clinical Notes 01-22-2023 to 07-13-2025 Note Date & EarnIxusXqmnsyqf08-97-1585 History of Present illness Narrative* Cassius Hendrix MD - 07/13/2025 2:00 PM EDT Images from the original note were not included. Patient ID: Daysi De Leon is a 89 y.o. female who presents for: Diabetes Mellitus Patient presents for follow up of diabetes. Current symptoms include: none. Symptoms have stabilized. Patient denies increased appetite, paresthesia of the feet, and visual disturbances. Evaluation to date has included: none Home sugars: BGs consistently in an acceptable range. Chronic Pain: Pt is here for follow-up of chronic pain related to back. Her/His pain has worsened. Pain is usually 5-6/10, described as aching , bilateral, and occurs continuously. The average duration of each episode is 1-2 days. She uses the hydrocodone 1st thing in the morning to help her get out of bed and get moving which is her worst time. She is using heat. She wants to discuss taking aleve in place of the tylenol. On further questioning she is only taking 1 325 mg Tylenol at lunchtime in his not getting the relief she needs. It is impacting her ability to function as the day goes on. The pain is also little bit higher in the lumbar spine now. No radicular component. The patient has with them today and independent historian; Her daughter. The independent historian is here to ensure that the information related to us in the HPI and review of systems is accurate. They are also here to help the patient to understand and follow through with treatment plans established today. Review of Systems Constitutional: Negative for activity change and fatigue. Respiratory: Negative for cough, shortness of breath and wheezing. Cardiovascular: Negative for chest pain, palpitations and leg swelling. Neurological: Negative for light-headedness and headaches. There also is a problem with her inability to hear. We did check the ear canals and I removed some cerumen from the right ear canal. We were able to touch base with the ENT in the next hallway and her hearing aid that was out for repair is back and we were able to get that and swab it out with the other hearing aid for so they could send that when for repair. Objective The patient is pleasant and in no acute distress The patient has good eye contact and clear speech Tandem but slightly wide-based gait. Lower thoracic and lumbar paraspinal hypertonicity. Nontender to palpation. Spinous processes nontender. Good hip flexor strength. 07/13/2025 1:50 PM 04/13/2025 1:53 PM 01/19/2025 1:42 PM 10/28/2024 2:02 PM Vitals BMI 24.37 kg/m2 24.89 kg/m2 24.89 kg/m2 24.89 kg/m2 BSA (m2) 1.71 m2 1.72 m2 1.72 m2 1.72 m2 Heart Rate 52 75 66 SpO2 98 % 95 % 97 % Height (in) 5' 4 5' 4 5' 4 5' 4 Weight (lb) 142 145 145 145 Visit Report Report Report Report Report Allergies Allergen Reactions Cefdinir Other Nitrofurantoin Other Current Outpatient Medications on File Prior to Visit Medication Sig Dispense Refill acetaminophen (Tylenol) 325 MG capsule Take 325 mg by mouth every 6 (six) hours if needed for mild pain atorvastatin (Lipitor) 40 MG tablet Blood Glucose Monitoring Suppl (Locally Verio) w/Device kit Check BS bid prn 1 kit 0 carvedilol (Coreg) 3.125 MG tablet Take 1 tablet (3.125 mg) by mouth in the morning and 1 tablet (3.125 mg) in the evening. Take with meals. cholecalciferol (Vitamin D-3) 25 MCG (1000 UT) capsule Take 1,000 Units by mouth Daily OTC Eliquis 2.5 MG tablet Take 2.5 mg by mouth in the morning and 2.5 mg before bedtime. empagliflozin (Jardiance) 10 MG Take 1 tablet (10 mg) by mouth Daily 90 tablet 0 ezetimibe (Zetia) 10 MG tablet Take 10 mg by mouth in the morning. furosemide (Lasix) 20 MG tablet Take 20 mg by mouth if needed glucose blood (Privy Groupeuch VerListia) test strip Check BS bid prn 100 strip 3 HYDROcodone-acetaminophen ([place]) 5-325 MG tablet Take 1 tablet by mouth Daily as needed for severepain or moderate pain 30 tablet 0 HYDROcodone-acetaminophen ([place]) 5-325 MG tablet Take 1 tablet by mouth Daily as needed for moderate pain Do not start before June 12, 2025. 30 tablet 0 HYDROcodone-acetaminophen ([place]) 5-325 MG tablet Take 1 tablet by mouth Daily as needed for severepain Do not start before May 13, 2025. 30 tablet 0 Lancets (Privy Groupeuch Delica Plus [id number]) misc Check BS bid prn 100 each 3 lisinopril 2.5 MG tablet Hold if systolic is 100 or less OneTouch Ultra test strip USE TO TEST BLOOD SUGAR ONCE DAILY 100 strip 3 senna-docusate (Senexon-S) 8.6-50 MG tablet Take 1 tablet by mouth Daily (Patient taking differently: Take 1 tablet by mouth Daily) 90 tablet 3 spironolactone (Aldactone) 25 MG tablet Take 0.5 tablets by mouth 1 (one) time each day. potassium chloride (Klor-Con) 20 MEQ packet Take 20 mEq by mouth Daily (Patient not taking: Reported on 07/13/2025) [DISCONTINUED] aspirin 81 MG EC tablet Take 81 mg by mouth in the morning. No current facility-administered medications on file prior to visit. 1. Chronic pain syndrome Chronic problem, stable, multifactorial, with complex decision making. The patient presents for re-evaluation of their chronic pain syndrome and treatment recommendations. They note, that the pain is still present And worsening but reasonable control with home therapies and medications. They state that they are taking their medications compliantly and perceiving a benefit specifically from these medications. They deny any significant side effects from the medications themselves. The treatment program enables them to continue their activities of daily living. However she is having to sit and lay down later in the day secondarily to her pain. I specifically note the patient has one or more high risk medications that is a chronic problem that specifically increases complexity of decision making and complicates all prescribing including prescription renewal consistent with a moderate or complex degree of decision making. A high-risk medicine is one that may cause serious health problems if not taken the correct way, ortaken with another drug or food item that [...] medications need regular review and prescribing optimization. PDMP reviewed, Cassius Hendrix MD on 07/13/2025 1:57 PM Appears as expected. COMM reviewed After further discussion with her she is going to utilize her Tylenol 325 mg tablets. She was goingto take 1 1st thing in the morning with her hydrocodone tablet. She is then going to take 2 at lunchtime whether she thinks she needs it or not. Evening is up to her and how bad her pain is. We are going to try this for 1 week. - HYDROcodone-acetaminophen ([place]) 5-325 MG tablet; Take 1 tablet by mouth Daily as needed for moderate pain Do not start before September 11, 2025. Dispense: 30 tablet; Refill: 0 - HYDROcodone-acetaminophen ([place]) 5-325 MG tablet; Take 1 tablet by mouth Daily as needed for severe pain Do not start before August 12, 2025. Dispense: 30 tablet; Refill: 0 - HYDROcodone-acetaminophen ([place]) 5-325 MG tablet; Take 1 tablet by mouth Daily as needed for severe pain or moderate pain Dispense: 30 tablet; Refill: 0 - Comprehensive metabolic panel; Future - Comprehensive metabolic panel 2. Controlled substance agreement signed 3. Type 2 diabetes mellitus with stage 3b chronic kidney disease, without long- term current use of insulin (HCC) Chronic problem, stable, continue current treatment. - empagliflozin (Jardiance) 10 MG; Take 1 tablet (10 mg) by mouth Daily Dispense: 90 tablet; Refill: 1 - Lipid panel; Future - Comprehensive metabolic panel; Future - Hemoglobin A1c; Future - Lipid panel - Comprehensive metabolic panel - Hemoglobin A1c 4. Paroxysmal atrial fibrillation (HCC) Chronic problem, currently asymptomatic no palpitations and no chest pains or anginal equivalents. Comanaged with Cardiology. 5. Polypharmacy Chronic problem The patient meets the criteria for polypharmacy; 5 or more prescriptions or multi-morbidity definedas 5 or more diagnoses. Polypharmacy can significantly increase the risk of adverse drug events and negatively impact adherence. Consideration of factors such as clinician agreement, patient perspective, and de-prescribing,as appropriate can improve patient outcomes while simplifying care. This requires longitudinal monitoring as there is at least a moderate risk of morbidity and requires at least a moderate degree of evaluation and management. Please Note: Portions of this chart may have been created using voice recognition software. Occasionally a wrong-word or sound-like substitutions may have occurred due to inherent limitations of the voice recognition software. Please read the chart carefully and recognize, using context, where the substitutions may have occurred. documented in this encounterSt. [facility] [id number] NoteUT Electrophysiology Consult Note [place] [facility] Reason for visit: Afib 07/06/2025 Patient is here today for a follow up appointment and device check. Patient denies chest pain, SOB/PINTO, racing heart/palpitations, fatigue. Patient complains of occasional dizziness/lightheaded, left leg swelling, Patient had an echocardiogram in January 2025 which revealed EF of 45 to 50% and the last device check in April reveals 100% RV pacing. The device is approaching ANANT and so at this time we will consider adding a septal lead. Review of Systems Cardiovascular: Positive for leg swelling. Musculoskeletal: Positive for back pain. Neurological: Positive for dizziness and light-headedness. HPI: Daysi De Leon is a 89 y.o. year old with past medical history [...] Date Abnormal ECG CHF (congestive heart failure) ([facility]) Conduction disorder of the heart Coronary artery disease Heart valve disease Hyperlipidemia Hypertension NSVT (nonsustained ventricular tachycardia) ([facility]) Primary cardiomyopathy ([facility]) PSH: Past Surgical History: Procedure Laterality Date CORONARY ARTERY BYPASS GRAFT 04/14/2013 INSERT / REPLACE / REMOVE PACEMAKER SH: Social Drivers of Health Tobacco Use: Low Risk (07/06/2025) Patient History Smoking Tobacco Use: Never Smokeless Tobacco Use: Never Passive Exposure: Not on file Alcohol Use: Not At Risk (06/16/2024) [facility] AUDIT-C Frequency of Alcohol Consumption: Never Average Number of Drinks: Patient does not drink Frequency of Binge Drinking: Never Financial Resource Strain: Low Risk (06/16/2024) [facility] Overall Financial Resource Strain (CARDIA) Difficulty of Paying Living Expenses: Not hard at all Food Insecurity: No Food Insecurity (06/24/2024) Received from [facility] Hunger Screening Within the past 12 months we worried whether our food would run out before we got money to buy more.: Never True Within the past 12 months the food we bought just didn't last and we didn't have money to get more.: Never True Transportation Needs: No Transportation Needs (06/16/2024) Received [facility] PRAPARE - Transportation Lack of Transportation (Medical): No Lack of Transportation (Non-Medical): No Physical Activity: Inactive (06/16/2024) Received [facility] Exercise Vital Sign Days of Exercise per Week: 0 days Minutes of Exercise per Session: 0 min Stress: No Stress Concern Present (06/16/2024) Received from [facility] [employer] - Occupational Stress Questionnaire Feeling of Stress : Not at all Social Connections: Unknown (04/01/2025) Received from [facility] Social Connection and Isolation Panel [NHANES] Frequency of Communication with Friends and Family: Not on file Frequency of Social Gatherings with Friends and Family: Not on file Attends Islam Services: Not on file Active Member of Clubs or Organizations: Not on file Attends Club or Organization Meetings: Not on file Marital Status: Recent Concern: Social Connections - Moderately Isolated (04/01/2025) Re[facility] Social Connection and Isolation Panel [NHANES] Frequency of Communication with Friends and Family: Twice a week Frequency of Social Gatherings with Friends and Family: Twice a week Attends Islam Services: More than 4 times per year [...] Not on file Depression: Not at risk (07/14/2024) Received from [facility] PHQ-2 Patient Health Questionnaire-2 Score: 0 Housing Stability: Unknown (06/16/2024) Received from [facility] Housing Stability Vital Sign Unable to Pay for Housing in the Last Year: No Number of Times Moved in the Last Year: Not on file Homeless in the Last Year: No Utilities: Not on file Health Literacy: Inadequate Health Literacy (06/16/2024) Received from [facility] [employer] [id number] Health Literacy Frequency of need for help with medical instructions: Sometimes Allergies: Allergies Allergen Reactions C (more content not included)...[facility]07-15-2025 History of Present illness Narrative* Cassius Hendrix MD - 04/13/2025 2:00 PM EDT Images from the original note were not included. Patient ID: Daysi De Leon is a 89 y.o. female who presents for: Diabetes Mellitus Patient presents for follow up of diabetes. Current symptoms include: none. Symptoms have stabilized. Patient denies increased appetite, paresthesia of the feet, and visual disturbances. Evaluation to date has included: hemoglobin A1C. Home sugars: BGs consistently in an acceptable range. Chronic Pain: Pt is here for follow-up of chronic pain related to back. Her/His pain is stable. Pain is usually 5/10, described as aching , bilateral, and occurs continuously. The average duration of each episode is 1-2 days. She uses the hydrocodone 1st thing in the morning to help her get out of bed and get moving which is her worst time. She is no longer taking it a second time. Constipation Patient complains of constipation. Onset was several years ago. Pt states she has one every day butstates some days she has two or three. She was taking magnesium for her bowels but her kidney dr told her to stop taking it because her count was too high. Her had senexon 50-8.6 and had someleft at his demise so she started taking 0.5 tablets of his prescription which seems to be more gentle on her stomach. Current Health Habits: Eating fiber? yes - , Exercise? yes - , Adequate hydration? yes - . Objective The patient is pleasant and in no acute distress The patient has good eye contact and clear speech She seems to be doing well with the grieving process with the recent loss of her . She does push up and off the chair to get in and out. She is slightly forward flex. She has some mild hypertonicity of the lumbar paraspinal muscles that is nontender currently. She does have tandem gait. 12/25/2023 10:02 AM 03/26/2024 9:14 AM 06/16/2024 9:29 AM 07/16/2024 2:22 PM 07/28/2024 3:36 PM 10/28/2024 2:02 PM 01/19/2025 1:42 PM Vitals BMI 24.03 kg/m2 24.2 kg/m2 24.89 kg/m2 24.98 kg/m2 24.98 kg/m2 24.89 kg/m2 24.89 kg/m2 BSA (m2) 1.69 m2 1.7 m2 1.72 m2 1.73 m2 1.73 m2 1.72 m2 1.72 m2 Systolic 100 90 112 120 Diastolic 60 50 60 70 Heart Rate 63 70 92 87 66 SpO2 98 % 97 % Temp 98 F 97.7 F 97.2 F Height (in) 5' 4 5' 4 5' 4 5' 4 5' 4 5' 4 5' 4 Weight (lb) 140 141 145 145.5 145.5 145 145 Visit Report Report Report Report Report Report Report Report Allergies Allergen Reactions Cefdinir Other Nitrofurantoin Other Current Outpatient Medications on File Prior to Visit Medication Sig Dispense Refill acetaminophen (Tylenol) 325 MG capsule Take 325 mg by mouth every 6 (six) hours if needed for mild pain aspirin 81 MG EC tablet Take 81 mg by mouth in the morning. atorvastatin (Lipitor) 40 MG tablet Bisacodyl (LAXATIVE PO) Take 5 mg by mouth Daily OTC Blood Glucose Monitoring Suppl (Locally Verio) w/Device kit Check BS bid prn 1 kit 0 carvedilol (Coreg) 3.125 MG tablet Take 1 tablet (3.125 mg) by mouth in the morning and 1 tablet (3.125 mg) in the evening. Take with meals. cholecalciferol (Vitamin D-3) 25 MCG (1000 UT) capsule Take 1,000 Units by mouth Daily OTC Eliquis 2.5 MG tablet Take 2.5 mg by mouth in the morning and 2.5 mg before bedtime. empagliflozin (Jardiance) 10 MG Take 1 tablet (10 mg) by mouth Daily 90 tablet 0 ezetimibe (Zetia) 10 MG tablet Take 10 mg by mouth in the morning. furosemide (Lasix) 20 MG tablet Take 20 mg by mouth if needed glucose blood (Privy Groupeuch Verio) test strip Check BS bid prn 100 strip 3 HYDROcodone-acetaminophen ([place]) 5-325 MG tablet Take 1 tablet by mouth Daily as needed for severepain 30 tablet 0 HYDROcodone-acetaminophen ([place]) 5-325 MG tablet Take 1 tablet by mouth Daily as needed for severepain or moderate pain 30 tablet 0 HYDROcodone-acetaminophen ([place]) 5-325 MG tablet Take 1 tablet by mouth Daily as needed for moderate pain 30 tablet 0 Lancets (Priv[employer] Gr[employer]uch Delica Plus [id number]) misc Check BS bid prn 100 each 3 lisinopril 2.5 MG tablet Hold if systolic is 100 or less OneLiquidMuch Ultra test strip USE TO TEST BLOOD SUGAR ONCE DAILY 100 strip 3 potassium chloride (Klor-Con) 20 MEQ packet Take 20 mEq by mouth Daily spironolactone (Aldactone) 25 MG tablet Take 0.5 [...] perceiving a benefit specifically from these medications. They deny any significant side effects from the medications themselves. The treatment program enables them to continue their activities of daily living. I specifically note the patient has one or more high risk medications that is a chronic problem that specifically increases complexity of decision making and complicates all prescribing including prescription renewal consistent with a moderate or complex degree of decision making. A high-risk medicine is one that may cause serious health problems if not taken the correct way, ortaken with another drug or food item that [...] medications need regular review and prescribing optimization. PDMP reviewed, Cassius Hendrix MD on 04/13/2025 2:10 PM Appears as expected. - HYDROcodone-acetaminophen ([place]) 5-325 MG tablet; Take 1 tablet by mouth Daily as needed for severe pain or moderate pain Dispense: 30 tablet; Refill: 0 - HYDROcodone-acetaminophen ([place]) 5-325 MG tablet; Take 1 tablet by mouth Daily as needed for moderate pain Do not start before June 12, 2025. Dispense: 30 tablet; Refill: 0 - HYDROcodone-acetaminophen ([place]) 5-325 MG tablet; Take 1 tablet by mouth Daily as needed for severe pain Do not start before May 13, 2025. Dispense: 30 tablet; Refill: 0 2. Lumbosacral spondylosis without myelopathy Chronic problem that has a component of the chronic pain syndrome. Actually this is the primary component. She has been on the hydrocodone for many years prior to seeing me in this practice. We are maintaining her medication for her. She does note on her bad days she takes extra Tylenol later in the day. 3. Postural kyphosis of cervicothoracic region Chronic problem that has a component of the chronic pain syndrome. 4. Type 2 diabetes mellitus with stage 3b chronic kidney disease, without long- term current use of insulin ([facility]) Labs reviewed Hemoglobin A1c to goal. Continue current treatment and the patient does not need a refill of her prescription. 5. Chronic constipation She did have some of this left from her . She tried it and she thinks it works better for her and she is only using 1/2-1 tablet depending. This has been a longstanding problem. - senna-docusate (Senexon-S) 8.6-50 MG tablet; Take 1 tablet by mouth Daily Dispense: 90 tablet; Refill: 3 documented in this [facility]06-12-2025 Telephone encounter Note* Telephone Encounter - Chari Tate - 03/11/2025 3:23 PM EDT Lillian Patten called back. She stated the pharmacy did have 1 more fill for them but stated that was the last one. [id number] Miscellaneous Notes* Telephone Encounter - Chari Tate - 03/11/2025 3:23 PM EDT Lillian Patten called back. She stated the pharmacy did have 1 more fill for them but stated that was the last one. * Telephone Encounter - Chari Tate - 03/11/2025 11:15 AM EDT Spoke to Daughter and she will call the pharmacy and see if she is able to get that straightened out. If they do not have anything, she will call back. documented in this [facility]06-12-2025 Telephone encounter Note* Telephone Encounter - Chari Tate - 03/11/2025 11:15 AM EDT Spoke to Daughter and she will call the pharmacy and see if she is able to get that straightened out. If they do not have anything, she will call back. [facility] [id number] NoteUT Cardiology - [facility] Subjective aDysi De Leon is a 89 y.o. year old female patient being seen for 6 mo follow up with ECHO. 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 Update 09/01/2018: She is seen in follow [...] discussion regarding upgrade of her pacemaker to [employer]FTLINES SUPERVISOR-D device. She met with him and he [...] rest or her little physical activities that sh (more content not included)...[facility]04-22-2025 History of Present illness Narrative* Cassius Hendrix MD - 01/19/2025 2:00 PM EDT Images from the original note were not included. Patient ID: Daysi De Leon is a 89 y.o. female who presents for: Diabetes Mellitus Patient presents for follow up of diabetes. Current symptoms include: none. Symptoms have stabilized. Patient denies increased appetite, paresthesia of the feet, and visual disturbances. Evaluation to date has included: hemoglobin A1C. Home sugars: BGs consistently in an acceptable range. Chronic Pain: Pt is here for follow-up of chronic pain related to back. Her/His pain is stable. Pain is usually 5/10, described as aching , bilateral, and occurs continuously. The average duration of each episode is 3 days. She uses the hydrocodone 1st thing in the morning to help her get out of bed and get moving which is her worst time. Occasionally it is bothersome in the afternoon and she uses 2 Tylenol at this point in her day. Review of Systems Constitutional: Negative for activity change and fatigue. Respiratory: Negative for cough, shortness of breath and wheezing. Cardiovascular: Negative for chest pain, palpitations and leg swelling. Neurological: Negative for light-headedness and headaches. They did describe a 1 time dizzy episode that was just lasting minutes. No loss of consciousness. No diaphoresis or palpitations. Objective The patient is pleasant and in no acute distress. The neck is supple and trachea is midline. No masses are appreciated. The heart is regular rate and rhythm without S3, S4. No murmur. The patient has normal respiratory pattern. The breath sounds are symmetrical without evidence of rhonchi or rales. No wheezing. The skin is warm and dry. The lower extremities have trace edema. The patient has good eye contact and speech is clear. Appropriate affect. She is surprisingly agile and able to get out of the chair easily. She has a normal tandem gait. She has a little bit of lumbar paraspinal hypertonicity but is otherwise nontender at this point. Visit Vitals Ht 5' 4 Wt 145 lb BMI 24.89 kg/m OB Status Postmenopausal Smoking Status Never BSA 1.72 m Component Ref Range & Units 6 d ago (01/13/25) 9 mo ago (03/26/24) 9 mo ago (03/26/24) 1 yr ago (09/26/23) 2 yr ago (08/20/22) 4 yr ago (02/19/20) Hemoglobin A1C <5.7 % 7.1 High 6.6 High R, CM 6.6 High R, CM 6.5 High R, CM 6.2 High Allergies Allergen Reactions Cefdinir Other Nitrofurantoin Other Current Outpatient Medications on File Prior to Visit Medication Sig Dispense Refill acetaminophen (Tylenol) 325 MG capsule Take 325 mg by mouth every 6 (six) hours if needed for mild pain atorvastatin (Lipitor) 40 MG tablet Bisacodyl (LAXATIVE PO) Take 5 mg by mouth Daily OTC Blood Glucose Monitoring Suppl ([employer]) w/Device kit Check BS bid prn 1 kit 0 carvedilol (Coreg) 3.125 MG tablet Take 1 tablet (3.125 mg) by mouth in the morning and 1 tablet (3.125 mg) in the evening. Take with meals. cholecalciferol (Vitamin D-3) 25 MCG (1000 UT) capsule Take 1,000 Units by mouth Daily OTC Eliquis 2.5 MG tablet Take 2.5 mg by mouth in the morning and 2.5 mg before bedtime. empagliflozin (Jardiance) 10 MG Take 1 tablet (10 mg) by mouth Daily 90 tablet 1 ezetimibe (Zetia) 10 MG tablet Take 10 mg by mouth in the morning. furosemide (Lasix) 20 MG tablet Take 20 mg by mouth if needed glucose blood (Privy Groupeuch Verio) test strip Check BS bid prn 100 strip 3 HYDROcodone-acetaminophen ([place]) 5-325 MG tablet Take 1 tablet by mouth Daily as needed for moderate pain 30 tablet 0 HYDROcodone-acetaminophen ([place]) 5-325 MG tablet Take 1 tablet by mouth Daily as needed for severepain 30 tablet 0 HYDROcodone-acetaminophen ([place]) 5-325 MG tablet Take 1 tablet by mouth Daily as needed for severepain or moderate pain 30 tablet 0 Lancets (OneTouch Delica Plus [id number]) misc Check BS bid prn 100 each 3 lisinopril 2.5 MG tablet Hold if systolic is 100 or less OneTouch Ultra test strip USE TO TEST BLOOD SUGAR ONCE DAILY 100 strip 3 spironolactone (Aldactone) 25 MG tablet Take 0.5 tablets by mouth 1 (one) time each day. No current facility-administered medications on file prior to visit. 1. Chronic pain syndrome PDMP reviewed, Cassius Hendrix MD on 01/19/2025 2:29 PM Appears as expected. Chronic problem, stable, multifactorial, with complex decision making. The patient presents for re-evaluation of their chronic pain syndrome and treatment recommendations. They note, that the pain is still present but under reasonable control with home therapies and medications. They state that they are taking their medications compliantly and perceiving a benefit specifically from these medications. They deny any significant side effects from the medications themselves. The treatment program enables them to continue their activities of daily living. I specifically note the patient has one or more high risk medications that is a chronic problem that specifically increases complexity of decision making and complicates all prescribing including prescription renewal consistent with a moderate or complex degree of decision making. A high-risk medicine is one that may cause serious health problems if not taken the correct way, ortaken with another drug or food item that [...] regular review and prescribing optimization. - HYDROcodone-acetaminophen ([place]) 5-325 MG tablet; Take 1 tablet by mouth Daily as needed for severe pain Dispense: 30 tablet; Refill: 0 - HYDROcodone-acetaminophen ([place]) 5-325 MG tablet; Take 1 tablet by mouth Daily as needed for severe pain or moderate pain Dispense: 30 tablet; Refill: 0 - HYDROcodone-acetaminophen ([place]) 5-325 MG tablet; Take 1 tablet by mouth Daily as needed for moderate pain Dispense: 30 tablet; Refill: 0 2. Lumbosacral spondylosis without myelopathy Chronic problem that is the major component of her chronic pain syndrome. 3. Controlled substance agreement signed See the scanned document 4. Type 2 diabetes mellitus with stage 3b chronic kidney disease, without long- term current use of insulin (HCC) ([facility]) Chronic problem, unstable, not to goal. After discussion we have all mutually agreed that she has been eating a lot of chocolate candy in the time. Coming up [place]. We talked about the importance of being able to have some comfort foods and treats but we probably need to real that in a little bit as this is the 1st A1c that is not to goal. We will keep her medications the same at this point. In prescribing a renewal to their current medication, consideration of the following encompasses moderate decision making; the current prescriptions and supplements, the current allergies and medication intolerances, current medical conditions, and potential drug interactions. Any changes to risks, benefits, and reason for renewing their current medication due to the above were discussed. The patient was given a chance to ask questions today and all questions were answered. The patient is to contact us if any other questions arise or if any problems occur. (Utilizing the original 1994/1996 guidelines or the 2020 office/outpatient code guidelines for selecting the level of E/M service, In both sets of guidelines, prescription drug management appears in the moderate medical decision making (MDM) row. Neither the original guidelines nor the new guidelines state that a new prescription or change is needed in order to credit prescription drug management) - Comprehensive metabolic panel; Future - Hemoglobin A1c; Future - Comprehensive metabolic panel - Hemoglobin A1c - empagliflozin (Jardiance) 10 MG; Take 1 tablet (10 mg) by mouth Daily Dispense: 90 tablet; Refill: 0 5. Chronic constipation (Primary) This does appear to be a very chronic problem. Is mostly constipation but then she does get some loose bowels. Her daughter that was here with her today was asking about colonoscopy. She was unsure exactly what she was taking as far as laxative another supplements to keep her bowels moving. I did discuss with them that the 1st step is to understand what she is taking to keep her bowels moving. If she has truly been on laxative for years then her bowels we will need to continue with someform a laxative usually. The daughter was concerned because she never had a screening colonoscopy. I also discussed at 89 there is no indication for screening colonoscopy. Diagnostically we would only proceed with this if we absolutely had to because in my opinion the risk outweighs the benefits. The daughter will contact us back through the portal with a list of what she is exactly taking for her bowels. 6. Polypharmacy Chronic problem The patient meets the criteria for polypharmacy; 5 or more prescriptions or multi-morbidity definedas 5 or more diagnoses. Polypharmacy can significantly increase the risk of preventable adverse drug events and negatively impact adherence. Consideration of diverse factors such as clinician agreement, patient perspective,and de-prescribing, as appropriate can improve patient outcomes while simplifying care. This requires longitudinal monitoring as there is at least a moderate risk of morbidity and requires at least amoderate degree of evaluation and management. documented in this [facility]03-20-2025 Telephone encounter Note* Telephone Encounter - Cassius Hendrix MD - 12/17/2024 2:19 PM EDT [id number] Miscellaneous Notes* Telephone Encounter - Cassius Hendrix MD - 12/17/2024 2:19 PM EDT Prescription already sent documented in this [facility]02-19-2025 History of Present illness Narrative* Charlotte Blackmon MA - 11/18/2024 1:30 PM EST Patient was in today as a follow up to hearing aids which she upgraded to premium technology at last appointment. Patient feels she is hearing well and had no questions or concerns. Patient will continue as needed. Cosigned by RENEE Lopez at 11/18/2024 2:54 PM EST documented in this encounterSt. Luke's [id number] History of Present illness Narrative* Cassius Hendrix MD - 10/28/2024 2:00 PM EST Images from the original note were not included. Patient ID: Daysi De Leon is a 88 y.o. female who presents for: Chronic Pain: Pt is here for follow-up of chronic pain related to back. Her/His pain is stable. Pain is usually 5/10, described as aching , bilateral, and occurs continuously. The average duration of each episode is 3 days. Diabetes Mellitus Patient presents for follow up of diabetes. Current symptoms include: none. Symptoms have stabilized. Patient denies increased appetite, paresthesia of the feet, polydipsia, polyuria, and visual disturbances. Evaluation to date has included: fasting blood sugar. Home sugars: BGs consistently in an acceptable range. Needs a new monitor, test strips and lancets. Review of Systems Constitutional: Negative for chills and fever. Respiratory: Negative for cough, shortness of breath and wheezing. Cardiovascular: Negative for chest pain and palpitations. Gastrointestinal: Negative for abdominal pain. Genitourinary: Negative for frequency and urgency. Objective The patient is pleasant and in no acute distress. The neck is supple and trachea is midline. No masses are appreciated. The heart is regular rate and rhythm without S3, S4. No murmur. The patient has normal respiratory pattern. The breath sounds are symmetrical without evidence of rhonchi or rales. No wheezing. The skin is warm and dry. The lower extremities have trace edema. The patient has good eye contact and speech is clear. Appropriate affect. With some assist from her daughter she is able to get in and out of the chair. Her gait is tandem but somewhat wide-based and slightly unsteady. Limited exam of the back is done, but there certainly decreased range of motion, some forward flexing upon standing, and hypertonicity of the lumbar paraspinal musculature. Visit Vitals Pulse 66 Ht 5' 4 Wt 145 lb SpO2 97% BMI 24.89 kg/m OB Status Postmenopausal Smoking Status Never BSA 1.72 m Allergies Allergen Reactions Cefdinir Other Nitrofurantoin Other Current Outpatient Medications on File Prior to Visit Medication Sig Dispense Refill acetaminophen (Tylenol) 500 MG tablet Take 1 tablet by mouth every 8 (eight) hours if needed for moderate pain atorvastatin (Lipitor) 40 MG tablet take 1 tablet by oral route every day Oral calcium 150 MG tablet as directed Orally carvedilol (Coreg) 3.125 MG tablet Take 1 tablet (3.125 mg) by mouth in the morning and 1 tablet (3.125 mg) in the evening. Take with meals. 180 tablet 0 cholecalciferol (Vitamin D-3) 25 MCG (1000 UT) capsule Vitamin D3 1000 Eliquis 2.5 MG tablet Take 2.5 mg by mouth in the morning and 2.5 mg before bedtime. ezetimibe (Zetia) 10 MG tablet Take 10 mg by mouth in the morning. Lancets (Cardeeotouch ultrasoft) lancets 1 each by Other route in the morning and 1 each in the eveningand 1 each before bedtime. 100 each 2 lisinopril 2.5 MG tablet Hold is systolic is 100 or les OneTouch Ultra test strip USE TO TEST BLOOD SUGAR ONCE DAILY 100 strip 3 spironolactone (Aldactone) 25 MG tablet Take 0.5 tablets by mouth 1 (one) time each day. [DISCONTINUED] empagliflozin (Jardiance) 10 MG Take 1 tablet by mouth in the morning. [DISCONTINUED] HYDROcodone-acetaminophen ([place]) 5-325 MG tablet Take 1 tablet by mouth 2 (two) times a day as needed for moderate pain for up to 14 days 28 tablet 0 No current facility-administered medications on file prior to visit. 1. Chronic pain syndrome (Primary) Chronic problem, stable, multifactorial, with complex decision making. This patient came to us already on the hydrocodone. It has been in place for some time now and she just needs help to get moving in the morning and this affords her that treatment. The patient presents for re-evaluation of their chronic pain syndrome and treatment recommendations. They note, that the pain is still present but under reasonable control with home therapies and medications. They state that they are taking their medications compliantly and perceiving a benefit specifically from these medications. They deny any significant side effects from the medications themselves. The treatment program enables them to continue their activities of daily living. I specifically note the patient has one or more high risk medications that is a chronic problem that specifically increases complexity of decision making and complicates all prescribing including prescription renewal consistent with a moderate or complex degree of decision making. A high-risk medicine is one that may cause serious health problems if not taken the correct way, ortaken with another drug or food item that [...] medications need regular review and prescribing optimization. PDMP reviewed, Cassius Hendrix MD on 10/28/2024 5:28 PM Appears as expected. COMM reviewed - HYDROcodone-acetaminophen ([place]) 5-325 MG tablet; Take 1 tablet by mouth Daily as needed for moderate pain Dispense: 30 tablet; Refill: 0 - HYDROcodone-acetaminophen ([place]) 5-325 MG tablet; Take 1 tablet by mouth Daily as needed for severe pain Dispense: 30 tablet; Refill: 0 - HYDROcodone-acetaminophen ([place]) 5-325 MG tablet; Take 1 tablet by mouth Daily as needed for severe pain or moderate pain Dispense: 30 tablet; Refill: 0 2. Lumbosacral spondylosis without myelopathy Chronic problem, stable, monitor longitudinally. It is a component of the chronic pain syndrome. 3. Postural kyphosis of cervicothoracic region Chronic problem, stable, monitor longitudinally. It is a component of the chronic pain syndrome. 4. Controlled substance agreement signed See scanned document 5. Polypharmacy Chronic problem The patient meets the criteria for polypharmacy; 5 or more prescriptions or multi-morbidity definedas 5 or more diagnoses. Polypharmacy can significantly increase the risk of preventable adverse drug events and negatively impact adherence. Consideration of diverse factors such as clinician agreement, patient perspective,and de-prescribing, as appropriate can improve patient outcomes while simplifying care. This requires longitudinal monitoring as there is at least a moderate risk of morbidity and requires at least amoderate degree of evaluation and management. 6. Type 2 diabetes mellitus with stage 3b chronic kidney disease, without long- term current use of insulin (HCC) ([facility]) Chronic problem, historically stable. I did review in her hemoglobin A1c has been stable into goal for 2 years now. From her previous physician she is checking her blood sugars every single day. She is not on insulin. I discussed some options with her and her daughter. I do not think it is necessary for her to poke her fingers every single day. I think if she just check some once or twice a month and it would be better if she would do a fasting in the morning and before supper as far as getting me information. This way she can alsohave them if she feels ill and either hypo or hyperglycemic and we did review these symptoms. - empagliflozin (Jardiance) 10 MG; Take 1 tablet (10 mg) by mouth Daily Dispense: 90 tablet; Refill: 1 - Blood Glucose Monitoring Suppl (OneTouch Verio) w/Device kit; Check BS bid prn Dispense: 1 kit; Refill: 0 - glucose blood (OneTouch Verio) test strip; Check BS bid prn Dispense: 100 strip; Refill: 3 - Lancets (OneTouch Delica Plus [id number]) misc; Check BS bid prn Dispense: 100 each; Refill: 3 - Hemoglobin A1c; Future - Hemoglobin A1c Also noted Is the other daughter is present. They have had a shift change if you will. There were many questions today. There is some concern that we do not know who is prescribing which medications.The daughter has agreed to check all the bottles at home and write it all out, we will then assign the correct physicians. documented in this encounterSt. Luke's [id number] History of Present illness Narrative* Charlotte Blackmon MA - 10/21/2024 2:30 PM EST Patient was in today to complete the hearing aid exchange and she was fit with Applause Pure C&G 7IX hearing aids which she obtained through [facility]. Patient is upgrading from [facility] 513 to premium aids. Patient is an experienced hearing aid wearer. Patient aids were coupled to 1M receivers with a smallpower dome in the right ear and an XS power dome in the left ear. Patient felt she heard well but there was noticeable feedback from the right ear. I did complete feedback marketing intelligence manager and advised the patient that a custom earmold in the right ear might be advisable. Patient does not use a smart phone. She was scheduled for a follow up in approx one month. Cosigned by RENEE Lopez at 10/23/2024 12:31 PM EST documented in this encounterSt. Luke's [id number] NoteUT Cardiology [facility] Subjective Daysi De Leon is a 88 y.o. year old female patient being seen for 6 mo follow up. Had echo on 09/11/2024, ordered by Dr. Polanco for new onset afib per device interrogation on 08/25/2024. She was started on Eliquis at that time. Patient states she is tolerating this well so far. She denies chest pain, SOB, and palpitations. 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 Update 09/01/2018: She is seen in follow [...] discussion regarding upgrade of her pacemaker to SOFTLINES SUPERVISOR-D device. She met with him and he [...] well. She does not do much in ter (more content not included)... [facility]12-11-2024 History of Present illness Narrative* RENEE Lopez - 09/09/2024 2:00 PM EST Hearing Aid check: Pt is not hearing well with her aids and decided to upgrade to premium aids. She returned her aids today. Processed exchange in [employer] - Financial Reconciliation Portal and gave pt's daughter [facility] A/R number for payment. ScheduledHAF 10-21-24 documented in this encounterSt. Luke's [id number] NoteUT Electrophysiology Consult Note [place] [facility] Reason for visit: Afib HPI: Daysi [...] Tobacco Use: Low Risk (06/16/2024) [facility] Patient History Smoking Tobacco Use: Never Smokeless Tobacco Use: Never Passive Exposure: Never Alcohol Use: Not At Risk (06/16/2024) [facility] AUDIT-C Frequency of Alcohol Consumption: Never Average Number of Drinks: Patient does not drink Frequency of Binge Drinking: Never Financial Resource Strain: Low Risk (06/16/2024) [facility] Overall Financial Resource Strain (CARDIA) Difficulty of Paying Living Expenses: Not hard at all Food Insecurity: No Food Insecurity (06/24/2024) [facility] [employer]. Hunger Screening Within the past 12 months we worried whether our food would run out before we got money to buy more.: Never True Within the past 12 months the food we bought just didn't last and we didn't have money to get more.: Never True Transportation Needs: No Transportation Needs (06/16/2024) [facility] PRAPARE - Transportation Lack of Transportation (Medical): No Lack of Transportation (Non-Medical): No Physical Activity: Inactive (06/16/2024) [facility] Exercise Vital Sign Days of Exercise per Week: 0 days Minutes of Exercise per Session: 0 min Stress: No Stress Concern Present (06/16/2024) [facility] [employer] - Occupational Stress Questionnaire Feeling of Stress : Not at all Social Connections: Moderately Integrated (06/16/2024) Re[facility] Social Connection and Isolation Panel [NHANES] Frequency of Communication with Friends and Family: Twice a week Frequency of Social Gatherings with Friends and Family: Twice a week Attends Islam Services: More than 4 times per year Active Member of Clubs or Organizations: No Attends Club or Organization Meetings: Never Marital Status: Intimate Partner Violence: Unknown (11/21/2023) [place] Safety & Environment Fear of Current or Ex-Partner: Not on file Emotionally Abused: Not on file Physically Abused: Not on file Sexually Abused: Not on file Physically or Sexually Abused: Not on file Depression: Not at risk (06/16/2024) [facility] PHQ-2 Patient Health Questionnaire-2 Score: 0 Housing Stability: Unknown (06/16/2024) Re[facility] Housing Stability Vital Sign In the last 12 months, was there a time when you were not able to pay the mortgage or rent on time?: No Number of Times Moved in the Last Year: Not on file At any time in the past 12 months, were you homeless or living in a fpc (including now)?: No Utilities: Not on file Health Literacy: Inadequate Health Literacy (06/16/2024) Re[facility] B1300 Health Literacy How often do [...] UT) tablet Take 1 (more content not included)...[facility]11-20-2024 History of Present illness Narrative* Charlotte Blackmon MA - 08/19/2024 3:00 PM EST Patient was in today for a follow [...] 09/01/2024 9:35 AM EST documented in this encounterSt. Luke's [id number] History of Present illness Narrative* Cassius Hendrix MD - 07/28/2024 3:30 PM EDT Images from the original note were not [...] aching and dull and occurs every day. Shehas been on [place] and they told her she could take 1 tablet BID but she Usually does not need more than one a day in the morning upon arising. She does have days though where the pain persists in hisworse and she takes it a 2nd time. [...] multiple joints especially noting the hands and theknees. She does have some mild kyphosis with [...] mg by mouth in the morning. HYDROcodone-acetaminophen ([place]) 5-325 MG tablet Take 1 tablet by mouth Daily Lancets (onetouch ultrasoft) lancets 1 each by Other route in the morning and 1 each in the eveningand 1 each before bedtime. 100 each 2 [...] problems if not taken the correct way, ortaken with another drug or food item that [...] regular review and prescribing optimization. - HYDROcodone-acetaminophen ([place]) 5-325 MG tablet; Take 1 tablet by [...] polypharmacy; 5 or more prescriptions or multi-morbidity definedas 5 or more diagnoses. Polypharmacy can significantly increase the risk of preventable adverse drug events and negatively impact adherence. Consideration of diverse factors such as clinician agreement, patient perspective,and de-prescribing, as appropriate can improve patient outcomes while simplifying care. This requires longitudinal monitoring as there is at least a moderate risk of morbidity and requires at least amoderate degree of evaluation and management. documented in this [facility]10-23-2024 History of Present illness Narrative* Charlotte Blackmon MA - 07/22/2024 1:00 PM EDT Patient was in today to be fit with a [employer] 513RIC LI T hearing aid that she obtained using her [employer] - Financial Reconciliation benefit. Patient is an experienced hearing aid wearer. Patient was shown the orchid grower and maintenance tasks. Patient aids were coupled to 1M receivers with XS Pwr domes. Patient had no trouble with insertion or removal. Patient was experiencing feedback in her right hearing aid. I ran feedback measures on the right and patient was pleased. She stated the aids were very clear. Patient does notuse a smart phone. She was scheduled for a follow up in approx one month Cosigned by RENEE Lopez at 07/24/2024 9:32 AM EDT documented in this [facility]10-17-2024 History of Present illness Narrative* Cassius Hendrix MD - 07/16/2024 2:00 PM EDT Images from the original note were not [...] the morning and 1 each in the eveningand 1 each before bedtime. 100 each 2 [...] as PCP - SANDRA Kerns MA as Radiosonde Specialist (Family Medicine) Devin Cole MD as Supervisor Inspection And Testing (Family Medicine) Saurav Girard MD (Ophthalmology) Medicare [...] Yes Vision Screening: Yes, patient sees regular network admin/honey grader and blender Hearing Screening: Yes, uses hearing aids Cognitive [...] Do you have a medical power of fusing machine operator?: No Objective : BP 120/70 Pulse 87 [...] through a living will, durable power of fusing machine operator for healthcare, or other advanced directives. We discussed telling baxter people about their advance and a copy will be kept in the EHR. I discussedthat they should also make me an emergency [...] and comanaged with Cardiology. 10. Atherosclerosis 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 pectoris (CMS/HCC) Chronic problem currently asymptomatic. Monitor longitudinally and comanaged with Cardiology. 11. 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) Chronic problem currently asymptomatic. Monitor longitudinally 12. Type 2 diabetes mellitus with stage 3b chronic kidney disease, without long- term current use ofinsulin (HCC) (CMS/HCC) Chronic problem currently asymptomatic. Monitor longitudinally 13. Mixed hyperlipidemia ([facility]/HCC) Chronic problem currently asymptomatic. Monitor longitudinally Electronically signed by Cassius Hendrix MD on July 28, 2024 documented in this encounterSt. Luke's [id number] Telephone encounter Note* Telephone Encounter - Kerrie Bob - 07/14/2024 8:54 AM EDT Pt is scheduled with Dr Bob 07/15/24. [facility] [id number] Miscellaneous Notes* Telephone Encounter - Kerrie Bob - 07/14/2024 8:54 AM EDT Pt is scheduled with Dr Bob 07/15/24. * Telephone Encounter - Ada Bob MD - 07/14/2024 7:53 AM EDT Pt needs appt to F/U audio * Telephone Encounter - Mariela Shin CCC-A - 07/13/2024 5:14 PM EDT Pt is HCS patient and saw me [...] is indicated. Thanks Clarisse documented in this encounterSt. Luke's [id number] Telephone encounter Note* Telephone Encounter - Ada Bob MD - 07/14/2024 7:53 AM EDT Pt needs appt to F/U audio [facility] [employer] Work Phone: 1(205) 972-929410-14-2024 Telephone encounter Note* Telephone Encounter - RENEE Lopez - 07/13/2024 5:14 PM EDT Pt is HCS patient and saw me [...] further follow up is indicated. Thanks Clarisse [facility] [employer] Work Phone: 1(162) 155-336210-14-2024 History of Present illness Narrative* RENEE Lopez - 07/13/2024 1:00 PM EDT History: Pt has hearing aid benefit through [facility]. She is experienced hearing aid user [...] tinnitus. 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 Sheis interested in Advanced LIANET aids and will owe [facility] $250. Gave her daughter the AR number for [facility] so she can call in the payment. Pt chose [facility] and needs 1M receivers. Will place order in portal today. Pt scheduled for HAF 08-19-24 in the [place] [facility] documented in this encounterSt. Luke's [id number] History of Present illness Narrative* Jose Maddox NP - 06/16/2024 12:17 PM EDTAssociated Problem(s): Stage 3b chronic kidney disease (HCC) ([facility]) Lisinopril and Jardiance Follows nephrology: Most recent GFR: 42 Creatinine: 1.24 Avoid nephrotoxic agents * Jose Maddox NP - 06/16/2024 12:16 PM EDTAssociated Problem(s): Type 2 diabetes mellitus with stage 3a chronic kidney disease, without long-term current use of insulin (HCC) ([facility]) Jardiance 10mg Most recent labs: hemoglobin A1C [...] persistent hypoglycemia/hyperglycemia on home glucose monitoring noted. * Jose Maddox NP - 06/16/2024 12:15 PM EDTAssociated Problem(s): Hyperlipidemia (CMS/HCC) Currently taking atorvastatin 40mg Zetia 10mg Most recent lipid panel 03/23- WNL Denies any myalgias. Continue current regimen. * Jose Maddox NP - 06/16/2024 12:15 PM EDTAssociated Problem(s): Essential hypertension (CMS/HCC) Currently taking carvedilol 3.125mg Lisinopril 2.5mg Checks BP at home; Averages are 110-120s. Denies orthostatic changes, dizziness, cough, shortness of breath, swelling in extremities. Continue current regimen. Given BP log, advised pt to record BP and bring log back with them to next visit. * Jose Maddox NP - 06/16/2024 9:30 AM EDT Images from the original note were not [...] CHOLESTEROL/HDL RATIO 1.0 - 5.0 2.2 3.3 Resulting Agency [facility] PRO DMII: Education: Check blood sugars daily, notify if <70 or >200. Take medications (pills or insulin) as directed. Monitor for s/s of hypoglycemia (sweaty, dizziness, nausea, vomiting, or shakiness). Watch for increase in thirst, urination, or appetite. Inspect feet frequently monitoring for open wounds , andalso recommend yearly eye exam. Pt should attempt [...] Neurological: Negative for dizziness, tremors, syncope, weakness, light- headedness and headaches. Psychiatric/Behavioral: Negative for decreased concentration and suicidal ideas. The patient is notnervous/anxious. Hematological: Does not bruise/bleed easily. Endocrine: Negative [...] Problem List Items Addressed This Visit Hyperlipidemia (CMS/[facility]) Currently taking atorvastatin 40mg Zetia 10mg Most recent lipid panel 03/23- WNL Denies any myalgias. Continue current regimen. Other chronic pain - Primary Relevant Orders Ambulatory referral to Pain Medicine Stage 3b chronic kidney disease (HCC) ([facility]) Lisinopril and Jardiance Follows nephrology: Most recent GFR: 42 Creatinine: 1.24 Avoid nephrotoxic agents Type 2 diabetes mellitus with stage 3a chronic kidney disease, without long-term current use of insulin ([facility]) ([facility]) Jardiance 10mg Most recent labs: hemoglobin A1C [...] Lancets (onetouch ultrasoft) lancets documented in this [facility]09-17-2024 Instructions* Patient Instructions* Jose Maddox NP - 06/16/2024 9:30 AM [...] feet frequently monitoring for open wounds , andalso recommend yearly eye exam. Pt should attempt to remain as physically active as chronic conditions allow, as well as trying to follow a diet low in carbohydrates, and simple sugars. Call if you need anything! MAXIMUM TYLENOL 4,000mg PER DAY! documented in this [facility]08-14-2024 Telephone encounter Note* Telephone Encounter - Anabel Glover LPN - 05/13/2024 4:[address] serrano unable to accept at this time [facility] [id number] Miscellaneous Notes* Telephone Encounter - Anabel Glover LPN - 05/13/2024 4:[address] serrano unable to accept at this time * Telephone Encounter - Alina Braswell - 05/05/2024 2:40 PM EDT Patient would like to become new patient with [facility]. They are a noms patient already records are already in system. documented in this encounterSt. Luke's [id number] Telephone encounter Note* Telephone Encounter - Alina Braswell - 05/05/2024 2:40 PM EDT Patient would like to become new patient with [facility]. They are a noms patient already records are already in system. [facility] [id number] NoteCARDIAC STRESS TEST Requesting Physician: Devin Cole M.D. Procedure Date:01/22/2023 PERFORMING PHYSICIAN: Vannesa Cole M.D. INDICATIONS: CAD, CHF. STRESS TEST [...] interpreted and reported nuclear myocardial perfusion imaging report.[facility]* Diagnosis 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)- Primary Routine general medical examination at health care facility Routine general medical examination at a health care facility Other chronic pain Cardiac LV ejection fraction of 20-34% Atherosclerosis 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 pectoris (CMS/HCC) Chronic systolic [...] Screening for alcoholism documented in this encounter [facility]* Diagnosis 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)- Primary Routine general medical examination at health care facility Routine general medical examination at a health care facility Other chronic pain Cardiac LV ejection fraction of 20-34% Atherosclerosis 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 pectoris (CMS/HCC) Chronic systolic [...] hearing loss, asymmetrical documented in this encounter [facility] HealthcareEvaluation note* Diagnosis 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)- Primary Routine general medical examination at health care facility Routine general medical examination at a health care facility Other chronic pain Cardiac LV ejection fraction of 20-34% Atherosclerosis 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 pectoris (CMS/HCC) Chronic systolic [...] (CMS/HCC) Chronic systolic heart failure Atherosclerosis 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 pectoris (CMS/HCC) 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) Type 2 diabetes mellitus with stage 3b chronic kidney disease, without long-term current use of insulin (HCC) (CMS/HCC) Mixed hyperlipidemia (CMS/HCC) Mixed hyperlipidemia documented in this encounter [facility] HealthcareEvaluation note* Diagnosis 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)- Primary Routine general medical examination at health care facility Routine general medical examination at a health care facility Other chronic pain Cardiac LV ejection fraction of 20-34% Atherosclerosis 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 pectoris (CMS/HCC) Chronic systolic [...] of repeat prescriptions documented in this encounter [facility] HealthcareEvaluation note* Diagnosis 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)- Primary Routine general medical examination at health care facility Routine general medical examination at a health care facility Other chronic pain Cardiac LV ejection fraction of 20-34% Atherosclerosis 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 pectoris (CMS/HCC) Chronic systolic [...] hearing loss, asymmetrical documented in this encounter [facility] HealthcareEvaluation note* Diagnosis Other chronic pain- Primary 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, without long-term current use of insulin (HCC) (CMS/HCC) Hyperlipidemia, unspecified hyperlipidemia type (CMS/HCC) documented in this encounter [facility] HealthcareEvaluation note* Diagnosis 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)- Primary Routine general medical examination at health care facility Routine general medical examination at a health care facility Other chronic pain Cardiac LV ejection fraction of 20-34% Atherosclerosis 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 pectoris (CMS/HCC) Chronic systolic [...] hearing loss, asymmetrical documented in this encounter [facility] HealthcareEvaluation note* Diagnosis Lumbosacral spondylosis without myelopathy- Primary documented in this encounter [facility]Evaluation note* Diagnosis 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)- Primary Routine general medical examination at health care facility Routine general medical examination at a health care facility Other chronic pain Cardiac LV ejection fraction of 20-34% Atherosclerosis 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 pectoris (CMS/HCC) Chronic systolic [...] hearing loss- Primary Sensorineural hearing loss, 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 Controlled substance agreement signed Polypharmacy Issue of repeat prescriptions documented in this encounter [facility]Evaluation note* Diagnosis 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)- Primary Routine general medical examination at health care facility Routine general medical examination at a health care facility Other chronic pain Cardiac LV ejection fraction of 20-34% Atherosclerosis 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 pectoris (CMS/HCC) Chronic systolic [...] of cervicothoracic region Controlled substance agreement signed Polypharmacy Issue of repeat prescriptions Type 2 diabetes mellitus with stage 3b chronic kidney disease, without long-term current use of insulin (HCC) (CMS/HCC) documented in this encounter [facility] HealthcareEvaluation note* Diagnosis 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)- Primary Routine general medical examination at health care facility Routine general medical examination at a health care facility Other chronic pain Cardiac LV ejection fraction of 20-34% Atherosclerosis 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 pectoris (CMS/HCC) Chronic systolic [...] hearing loss, asymmetrical documented in this encounter [facility]Evaluation note* Diagnosis 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)- Primary Routine general medical examination at health care facility Routine general medical examination at a health care facility Other chronic pain Cardiac LV ejection fraction of 20-34% Atherosclerosis 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 pectoris (CMS/HCC) Chronic systolic [...] (CMS/HCC) Hyperlipidemia, unspecified hyperlipidemia type (CMS/HCC) Chronic systolic heart failure (CMS/HCC) Chronic systolic heart failure Essential hypertension (CMS/HCC) Unspecified essential hypertension Type 2 diabetes mellitus with stage 3b chronic kidney disease, without long-term current use of insulin (HCC) (CMS/HCC) documented in this encounter [facility] HealthcareEvaluation note* Diagnosis 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)- Primary Routine general medical examination at health care facility Routine general medical examination at a health care facility Other chronic pain Cardiac LV ejection fraction of 20-34% Atherosclerosis 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 pectoris (CMS/HCC) Chronic systolic [...] without long-term current use of insulin (HCC) ([facility]/HCC) Essential hypertension ([facility]/HCC) Unspecified essential hypertension Chronic systolic heart failure (CMS/HCC) Chronic systolic heart failure Stage 3b chronic kidney disease (HCC) ([facility]/HCC) Type 2 diabetes mellitus with stage 3a chronic kidney disease, without long-term current use of insulin (HCC) ([facility]/HCC)- Primary Hyperlipidemia, unspecified hyperlipidemia type (CMS/HCC) Chronic systolic heart failure (CMS/HCC) Chronic systolic heart failure Essential hypertension ([facility]/HCC) Unspecified essential hypertension Fall, subsequent encounter Other chronic pain- Primary Stage 3b chronic kidney disease (HCC) ([facility]/HCC) Type 2 diabetes mellitus with stage 3a chronic kidney disease, without long-term current use of insulin (HCC) ([facility]) Hyperlipidemia, unspecified hyperlipidemia type ([facility]) Chronic constipation- Primary Unspecified constipation Chronic pain syndrome Lumbosacral spondylosis without myelopathy Controlled substance agreement signed Type 2 diabetes mellitus with stage 3b chronic kidney disease, without long-term current use of insulin (HCC) ([facility]) Polypharmacy Issue of repeat prescriptions documented in this encounter [facility] HealthcareEvaluation note* Diagnosis Stage 3b chronic kidney disease ([facility]-HCC)- Primary Routine general medical examination at health care facility Routine general medical examination at a health care facility Other chronic pain Cardiac LV ejection fraction of 20-34% Atherosclerosis 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 pectoris Chronic systolic heart failure (HCC) Chronic systolic heart failure Ischemic cardiomyopathy Other specified forms of chronic ischemic heart disease Essential hypertension Unspecified essential hypertension Presence of cardiac pacemaker Cardiac pacemaker in situ Ventricular tachycardia (HCC) Paroxysmal ventricular tachycardia 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) Pure hypercholesterolemia Pure hypercholesterolemia Osteopenia of both hips H/O left mastectomy History of left breast cancer Breast cancer screening by mammogram Essential hypertension- Primary Unspecified essential hypertension Chronic systolic heart failure (HCC) Chronic systolic heart failure Ischemic cardiomyopathy Other specified forms of chronic ischemic heart disease Stage 3b chronic kidney disease ([facility]-HCC) 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 mellitus (HCC) Hyperlipidemia, unspecified hyperlipidemia type Hyperlipidemia, unspecified hyperlipidemia type- Primary Type 2 diabetes mellitus with stage 3a chronic kidney disease, without long-term current use of insulin (HCC) Essential hypertension Unspecified essential hypertension Chronic systolic heart failure (HCC) Chronic systolic heart failure Stage 3b chronic kidney disease (CMS-HCC) Type 2 diabetes mellitus with stage 3a chronic kidney disease, without long-term current use of insulin (HCC)- Primary Hyperlipidemia, unspecified hyperlipidemia type Chronic systolic heart failure (HCC) Chronic systolic heart failure Essential hypertension Unspecified essential hypertension Fall, subsequent encounter Other chronic pain- Primary Stage 3b chronic kidney disease (CMS-HCC) Type 2 diabetes mellitus with stage 3a chronic kidney disease, without long-term current use of insulin (HCC) Hyperlipidemia, unspecified hyperlipidemia type Chronic pain syndrome documented in this encounter [facility] HealthcareEvaluation note* Diagnosis Stage 3b chronic kidney disease (CMS-HCC)- Primary Routine general medical examination at health care facility Routine general medical examination at a health care facility Other chronic pain Cardiac LV ejection fraction of 20-34% Atherosclerosis 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 pectoris Chronic systolic heart failure (HCC) Chronic systolic heart failure Ischemic cardiomyopathy Other specified forms of chronic ischemic heart disease Essential hypertension Unspecified essential hypertension Presence of cardiac pacemaker Cardiac pacemaker in situ Ventricular tachycardia (HCC) Paroxysmal ventricular tachycardia 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) Pure hypercholesterolemia Pure hypercholesterolemia Osteopenia of both hips H/O left mastectomy History of left breast cancer Breast cancer screening by mammogram Essential hypertension- Primary Unspecified essential hypertension Chronic systolic heart failure (HCC) Chronic systolic heart failure Ischemic cardiomyopathy Other specified forms of chronic ischemic heart disease Stage 3b chronic kidney disease (CMS-HCC) 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 mellitus (HCC) Hyperlipidemia, unspecified hyperlipidemia type Hyperlipidemia, unspecified hyperlipidemia type- Primary Type 2 diabetes mellitus with stage 3a chronic kidney disease, without long-term current use of insulin (HCC) Essential hypertension Unspecified essential hypertension Chronic systolic heart failure (HCC) Chronic systolic heart failure Stage 3b chronic kidney disease (CMS-HCC) Type 2 diabetes mellitus with stage 3a chronic kidney disease, without long-term current use of insulin (HCC)- Primary Hyperlipidemia, unspecified hyperlipidemia type Chronic systolic heart failure (HCC) Chronic systolic heart failure Essential hypertension Unspecified essential hypertension Fall, subsequent encounter Other chronic pain- Primary Stage 3b chronic kidney disease (CMS-HCC) Type 2 diabetes mellitus with stage 3a chronic kidney disease, without long-term current use of insulin (HCC) Hyperlipidemia, unspecified hyperlipidemia type Type 2 diabetes mellitus with stage 3b chronic kidney disease, without long-term current use of insulin (HCC) documented in this encounter [facility] HealthcareEvaluation note* Diagnosis Stage 3b chronic kidney disease (CMS-HCC)- Primary Routine general medical examination at health care facility Routine general medical examination at a health care facility Other chronic pain Cardiac LV ejection fraction of 20-34% Atherosclerosis 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 pectoris Chronic systolic heart failure (HCC) Chronic systolic heart failure Ischemic cardiomyopathy Other specified forms of chronic ischemic heart disease Essential hypertension Unspecified essential hypertension Presence of cardiac pacemaker Cardiac pacemaker in situ Ventricular tachycardia (HCC) Paroxysmal ventricular tachycardia 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) Pure hypercholesterolemia Pure hypercholesterolemia Osteopenia of both hips H/O left mastectomy History of left breast cancer Breast cancer screening by mammogram Essential hypertension- Primary Unspecified essential hypertension Chronic systolic heart failure (HCC) Chronic systolic heart failure Ischemic cardiomyopathy Other specified forms of chronic ischemic heart disease Stage 3b chronic kidney disease (CMS-HCC) 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 mellitus (HCC) Hyperlipidemia, unspecified hyperlipidemia type Hyperlipidemia, unspecified hyperlipidemia type- Primary Type 2 diabetes mellitus with stage 3a chronic kidney disease, without long-term current use of insulin (HCC) Essential hypertension Unspecified essential hypertension Chronic systolic heart failure (HCC) Chronic systolic heart failure Stage 3b chronic kidney disease (CMS-HCC) Type 2 diabetes mellitus with stage 3a chronic kidney disease, without long-term current use of insulin (HCC)- Primary Hyperlipidemia, unspecified hyperlipidemia type Chronic systolic heart failure (HCC) Chronic systolic heart failure Essential hypertension Unspecified essential hypertension Fall, subsequent encounter Other chronic pain- Primary Stage 3b chronic kidney disease (CMS-HCC) Type 2 diabetes mellitus with stage 3a chronic kidney disease, without long-term current use of insulin (HCC) Hyperlipidemia, unspecified hyperlipidemia type Chronic pain syndrome 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, 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, without long-term current use of insulin (HCC) documented in this encounter [facility] HealthcareEvaluation note* Diagnosis Stage 3b chronic kidney disease (CMS-HCC)- Primary Routine general medical examination at health care facility Routine general medical examination at a health care facility Other chronic pain Cardiac LV ejection fraction of 20-34% Atherosclerosis 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 pectoris Chronic systolic heart failure (HCC) Chronic systolic heart failure Ischemic cardiomyopathy Other specified forms of chronic ischemic heart disease Essential hypertension Unspecified essential hypertension Presence of cardiac pacemaker Cardiac pacemaker in situ Ventricular tachycardia (HCC) Paroxysmal ventricular tachycardia 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) Pure hypercholesterolemia Pure hypercholesterolemia Osteopenia of both hips H/O left mastectomy History of left breast cancer Breast cancer screening by mammogram Essential hypertension- Primary Unspecified essential hypertension Chronic systolic heart failure (HCC) Chronic systolic heart failure Ischemic cardiomyopathy Other specified forms of chronic ischemic heart disease Stage 3b chronic kidney disease (CMS-HCC) 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 mellitus (HCC) Hyperlipidemia, unspecified hyperlipidemia type Hyperlipidemia, unspecified hyperlipidemia type- Primary Type 2 diabetes mellitus with stage 3a chronic kidney disease, without long-term current use of insulin (HCC) Essential hypertension Unspecified essential hypertension Chronic systolic heart failure (HCC) Chronic systolic heart failure Stage 3b chronic kidney disease (CMS-HCC) Type 2 diabetes mellitus with stage 3a chronic kidney disease, without long-term current use of insulin (HCC)- Primary Hyperlipidemia, unspecified hyperlipidemia type Chronic systolic heart failure (HCC) Chronic systolic heart failure Essential hypertension Unspecified essential hypertension Fall, subsequent encounter Other chronic pain- Primary Stage 3b chronic kidney disease (CMS-HCC) Type 2 diabetes mellitus with stage 3a chronic kidney disease, without long-term current use of insulin (HCC) Hyperlipidemia, unspecified hyperlipidemia type Chronic pain syndrome- Primary 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, without long-term current use of insulin (HCC) Chronic constipation Unspecified constipation documented in this encounter [facility] HealthcareEvaluation note* Diagnosis Stage 3b chronic kidney disease (CMS-HCC)- Primary Routine general medical examination at health care facility Routine general medical examination at a health care facility Other chronic pain Cardiac LV ejection fraction of 20-34% Atherosclerosis 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 pectoris Chronic systolic heart failure (HCC) Chronic systolic heart failure Ischemic cardiomyopathy Other specified forms of chronic ischemic heart disease Essential hypertension Unspecified essential hypertension Presence of cardiac pacemaker Cardiac pacemaker in situ Ventricular tachycardia (HCC) Paroxysmal ventricular tachycardia 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) Pure hypercholesterolemia Osteopenia of both hips H/O left mastectomy History of left breast cancer Breast cancer screening by mammogram Essential hypertension- Primary Unspecified essential hypertension Chronic systolic heart failure (HCC) Chronic systolic heart failure Ischemic cardiomyopathy Other specified forms of chronic ischemic heart disease Stage 3b chronic kidney disease (CMS-HCC) 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 mellitus (HCC) Hyperlipidemia, unspecified hyperlipidemia type Hyperlipidemia, unspecified hyperlipidemia type- Primary Type 2 diabetes mellitus with stage 3a chronic kidney disease, without long-term current use of insulin (HCC) Essential hypertension Unspecified essential hypertension Chronic systolic heart failure (HCC) Chronic systolic heart failure Stage 3b chronic kidney disease (CMS-HCC) Type 2 diabetes mellitus with stage 3a chronic kidney disease, without long-term current use of insulin (HCC)- Primary Hyperlipidemia, unspecified hyperlipidemia type Chronic systolic heart failure (HCC) Chronic systolic heart failure Essential hypertension Unspecified essential hypertension Fall, subsequent encounter Other chronic pain- Primary Stage 3b chronic kidney disease (CMS-HCC) Type 2 diabetes mellitus with stage 3a chronic kidney disease, without long-term current use of insulin (HCC) Hyperlipidemia, unspecified hyperlipidemia type Chronic pain syndrome Controlled substance agreement signed Type 2 diabetes mellitus with stage 3b chronic kidney disease, without long-term current use of insulin (HCC) Paroxysmal atrial fibrillation (HCC) Atrial fibrillation Polypharmacy Issue of repeat prescriptions documented in this encounter [facility] HealthcareReason for referral (narrative)* Consultation (Routine) - Pending ReviewSpecialtyDiagnoses / ProceduresReferred By ContactReferred To Contact Pain Medicine Diagnoses Other chronic pain Procedures [place] OFFICE/OUTPATIENT [facility] 60 MINUTES Jose Maddox NP [address] [place] [phone] Murphy Catalan MD [address] [place] [address] Referral IDStatusReasonStart DateExpiration DateVisits RequestedVisits [id number] Review Specialty Services Required / [facility] Healthcare Summary Purpose Family History No Family History Records FoundNo Family History Records FoundNo Family History Records FoundNo Family History Records FoundNo Family History Records FoundNo Family History Records FoundNo Family History Records FoundNo Family History Records FoundNo Family History Records FoundNo Family History Records Found Advance Directives Date ActivatedDate InactivatedComments05/29/2024 8:16 AMTypeDate RecordedPatient RepresentativeExplanationAdvance Directives and Living Will07/28/2024 3:34 PM 2010-08-31 living WillDate ActivatedDate InactivatedComments05/29/2024 8:16 AM Additional Source Comments INFORMATION SOURCE (unrecogn ized section and content) DATE CREATED AUTHOR 09/08/2018 [facility] DATE CREATED AUTHOR AUTHOR'S ORGANIZ ATION 01/30/2019 [facility] DATE CREATED AUTHOR AUTHOR'S ORGANIZ ATION 03/16/2021 [facility] DATE CREATED AUTHOR AUTHOR'S ORGANIZ ATION 02/27/2022 [facility] DATE CREATED AUTHOR AUTHOR'S ORGANIZ ATION 03/08/2023 [facility] DATE CREATED AUTHOR AUTHOR'S ORGANIZ ATION 09/17/2024 [facility] DATE CREATED AUTHOR AUTHOR'S ORGANIZ ATION 04/11/2025 [facility] DATE CREATED AUTHOR AUTHOR'S ORGANIZ ATION 05/25/2025 [facility] DATE CREATED AUTHOR AUTHOR'S ORGANIZ ATION 07/09/2025 [facility] DATE CREATED AUTHOR AUTHOR'S ORGANIZ ATION 07/15/2025 [facility] EPIC Care Teams (unrecognized sec tion and content) Team MemberRelationshipSpecialtyStart DateEnd Date Chyuita Peters MD [address] [place] [address] PCP - Obie MADSEN09/30/21 Ray Banda MD [address] [place] [address] PCP - GeneralFamily Medicine05/07/24 Jose Maddox NP [address] [place] [address] Nurse PractitionerFamily Medicine05/07/24 Adia Pearson LSW Social WorkerFamily Medicine05/26/24Team MemberRelationshipSpecialtyStart DateEnd Date Chuyita Peters MD [address] [place] [address] PCP - Obie MADSEN09/30/21 Ray Banda MD [address] [place] [address] [facility] - [facility]05/07/24 Jose Maddox NP [address] [place] [address] Nurse PractitionerChat[facility]05/07/24 Adia Pearson LSW Social WorkerChat[facility] Hospital05/26/24Team MemberRelationshipSpecialtyStart DateEnd Date Chuyita Peters MD [address] [place] [address] PCP - Obie AL09/30/21 Ray Banda MD [address] [place] [address] PCP - GeneralChat[facility]05/07/24 Jose Maddox NP [address] [place] [address] Nurse Pract[facility]er[facility] Medicine05/07/24 Adia Pearson LSW Social WorkerChat[facility] Hospital05/26/24Team MemberRelationshipSpecialtyStart DateEnd Date Chuyita Peters MD [address], [place] [address] PCP - Obie AL09/30/21 Cassius Hendrix MD [address] [place] [address] (Fax) PCP - GeneralFamily Qgebxwzj75/17/24 Adilia Larose LSW Social WorkerFamily Tqhqetyh06/17/24 Devin Cole MD [address] [place] [address] CardiologistFamily Lkbvicsx13/17/24 Saurav Girard MD [address] [place] [address] Fpeubbzzrawfv47/17/24Team MemberRelationshipSpecialtyStart DateEnd Date Chuyita Peters MD [address], [place] [address] PCP - Obie AL09/30/21 Cassius Hendrix MD [address] [place] [address] (Fax) PCP - GeneralFamily Arurjdhv95/17/24 Adia Pearson, [facility] Social WorkerFamily Medicine05/26/2410 Adilia Larose LSW Social WorkerFamily Ktxthvvf48/17/24 Devin Cole MD [address] [place] [address] CardiologistFamily Ksutbhet17/17/24 Saurav Girard MD [address] [place] [address] Yyszxprjtrvks42/17/24Team MemberRelationshipSpecialtyStart DateEnd Date Chuyita Peters MD [address] [place] [address] PCP - Barre AL09/30/21 Cassius Hendrix MD [address] [place] [address] (Fax) PCP - GeneralFamily Gknkvlre67/17/24 Adilia Larose LSW Social WorkerFamily Brjaseio20/17/24 Devin Cole MD [address] [place] [address] CardiologistFamily Tfykrjgu71/17/24 Saurav Girard MD [address] [place] [address] Kxibhnkxezljy73/17/24Te MemberRelationshipSpecialtyStart DateEnd Date Chuyita Peters MD [address] [place] [address] PCP - Obie AL09/30/21 Cassius Hendrix MD [address] [place] [address] (Fax) PCP - GeneralFamily Qqdpdxte33/17/24 Adilia Larose LSW Social Workermily Nrwyinhg49/17/24 Devin Cole MD [address] [place] [address] CardiologistFamily Lpeetvyn75/17/24 Saurav Girard MD [address] [place] [address] Qkzjgypvepnrn53/17/24Team MemberRelationshipSpecialtyStart DateEnd Date Chuyita Peters MD [address] [place] [address] PCP - Obie MADSEN09/30/21 Cassius Hendrix MD [address] [place] [address] PCP - GeneralFamily Nbbmmivo51/17/24 Adilia Larose LSW Social WorkerFamily Sixfkrnv87/17/24 Devin Cole MD [facility] [place] [address] CardiologistFamily Uwssccgg89/17/24 Saurav Girard MD [address] [place], [place] [address] Zovcbqxxjygxp88/17/24 Suzanna Olmos, RN Registered NurseFamily Sdgffrig23/1/24 Suzanna Olmos, RN Registered NurseFamily Pbjhetwd60/6/24Team MemberRelationshipSpecialtyStart Date End Date Chuyita Peters MD [address] [facility] [place] [address] PCP - Obie MADSEN09/30/21 Cassius Hendrix MD [address] [place] [address] (Fax) PCP - GeneralFamily Mwvvnfmm40/17/24 Adilia Larose LSW Social WorkerFamily Nlameect12/17/24 Devin Cole MD [address] [place] [address] CardiologistFamily Rkvvusxk76/17/24 Saurav Girard MD [address] [place] [address] Pvoglowtjdrcs78/17/24 Suzanna Olmos, RN Registered NurseFamily Hhfnfvmc29/1/24 Suzanna Olmos, ISABELLE Registered NurseFamily Ikzazmey18/6/24Team MemberRelationshipSpecialtyStart Date End Date Chuyita Peters MD [address] [place] [address] PCP - Barre AL09/30/21 Ray Banda MD [address] [place] [address] PCP - GeneralFamily Medicine05/07/24 Jose Maddox NP [address] [place] [address] Nurse PractitionerFamily Medicine05/07/24 Adia Pearson LSW Social WorkerFamily Medicine05/26/24Team MemberRelationshipSpecialtyStart DateEnd Date Chuyita Peters MD [address] [place] [address] PCP - Obie AL09/30/21 Ray Banda MD [address] [place] [address] PCP - GeneralFamily Medicine05/07/24 Jose Maddox, REBECCA [address] [place] [address] Nurse PractitionerFamily Medicine05/07/24 Adia Pearson, [facility] Social WorkerFamily Medicine05/26/24Team MemberRelationshipSpecialtyStart DateEnd Date Chuyita Peters MD [address] [place] [address] PCP - Obie AL09/30/21 Cassius Hendrix MD [address] [place] [address] PCP - GeneralFamily Eerrozbf63/17/24 Adilia Larose, [facility] Social WorkerFamily Dvmnnxvv00/17/24 Devin Cole MD [address] [place] [address] CardiologistFamily Ixonqylz46/17/24 Saurav Girard MD [address] [place] [address] Jvedclhhsllin35/17/24 Suzanna Olmos, ISABELLE Registered NurseFamily Ipzqipay31/1/24 Suzanna Olmos RN Registered NurseFamily Hohpookl99/6/24Team MemberRelationshipSpecialtyStart Date End Date Chuyita Peters MD [address] [place] [address] PCP - Obie MADSEN09/30/21 Cassius Hendrix MD 112 [facility] 100 [place] [address] PCP - GeneralFamily Zbthfxua42/17/24 Adilia Larose LSW Social WorkerFamily Ahytptgm41/17/24 Devin Cole MD [address] [place] [address] CardiologistFamily Ewpvgypf07/17/24 [place] [address] [place] [address] Ryrqvresclotg09/17/24 Suzanna Olmos RN Registered NurseFamily Ezofchep58/1/24 Suzanna Olmos RN Registered NurseFamily Ldfqdliw81/6/24Team MemberRelationshipSpecialtyStart Date End Date Chuyita Peters MD [address], [place] [address] PCP - Obie MADSEN09/30/21 Shaikh Locke MD [address] [facility] [place] [address] PCP - GeneralInternal Medicine Ray Banda MD [address] [place] [address] PCP - [facility]Chat[facility]05/07/24 Jose Maddox NP [address] [place] [address] Nurse PractitionerChatuge [facility] Hospital05/07/24Team MemberRelationshipSpecialtyStart DateEnd Date Chuyita Peters MD [address], [place] 12179[address] PCP - Barre AL09/30/21 Ray Banda MD [address] [place] [address] PCP - GeneralChat[facility] Hospital05/07/24 Jose Maddox, REBECCA [address] [place] [place] [address] Nurse PractitionerChatuge [facility] Hospital05/07/24 Adia Pearson LSW Social [facility]erMer[facility] Medicine05/26/24Team MemberRelationshipSpecialtyStart DateEnd Date Cassius Hendrix MD [address] [address] [place] [address] (Fax) PCP - GeneralMer[facility] Medical Center Mowdasuo10/17/24 Shaikh Locke MD [address] [place] [address] PCP - Barre AL08/30/24 Adilia Larose LSW Social WorkerFamily Mdeqprws55/17/24 Devin Cole MD [address] [place] [address] CardiologistFamily Bmwdlkmh35/17/24 Saurav Girard MD [address] [place] [address] Lwuunrhcapjvc17/17/24 Suzanna Olmos RN Registered NurseFamily Bhduttoe68/1/24 Suzanna Olmos RN Registered NurseFamily Htenneko94/6/24Team MemberRelationshipSpecialtyStart Date End Date Cassius Hendrix MD [address] [place] [address] PCP - GeneralFamily Npokklgi28/17/24 Shaikh Locke MD [address] [place] [address] PCP - Barre AL08/30/24 Adilia Larose [facility] Social WorkerFamily Foimzjir56/17/24 Devin Cole MD [address] [place] [address] CardiologistFamily Zbyyikhn58/17/24 Saurav Girard MD [address] [place] [phone] Skxshxwpqulab47/17/24 Suzanna Olmos RN Registered NurseFamily Tvsywfru36/1/24 Suzanna Olmos, ISABELLE Registered NurseFamily Wiugxhxz10/6/24Team MemberRelationshipSpecialtyStart Date End Date Cassius Hendrix MD 112 [facility] 100 [place] [address] (Fax) PCP - GeneralFamily Xssebvgb08/17/24 Adilia Larose [employer]IDER PRESS OPERATOR Social WorkerChatuge [facility] Hospital07/16/24 Devin Cole MD [address] [place] [address] CardiologistChatuge Regional Hospital07/16/24 Saurav Girard MD [address] [place] [address] Oiwscldgvihww20/17/24 Suzanna Olmos, ISABELLE Registered NurseFamily Ldheptsn47/1/24 Suzanna Olmos, ISABELLE Registered NurseFamily Lfjillia57/6/24Team MemberRelationshipSpecialtyStart Date End Date Cassius Hendrix MD [address] [address] (Fax) PCP - Generalmily Axxuxvox91/17/24 Shaikh Locke MD [address] [place] [address] PCP - Barre AL08/30/24 Adilia Larose LSW Social WorkerChat[facility] Hospital07/16/24 Devin Cole MD [address] [place] [address] (Fax) CardiologistFamily Vexherzo58/17/24 [place] [address] [place] [address] Faxwspyvpmawy68/17/24 Suzanna Olmos RN Registered NurseFamily Difdzndg97/1/24 Suzanna Olmos RN Registered NurseFamily Qjhqgnmz45/6/24Team MemberRelationshipSpecialtyStart Date End Date Cassius Hendrix MD [address] [place] [address] (Fax) PCP - GeneralFamily Hunjmerp60/17/24 Shaikh Locke MD [address] [place] [address] PCP - Barre AL08/30/24 Adilia Larose CIDER PRESS OPERATOR Social WorkerFamily Qdsevjqr74/17/24 Devin Cole MD [address] [place] [address] (Fax) CardiologistFamily Qumxstfo08/17/24 Saurav Girard MD [address] [place] [address] Qayzxcdyglczt35/17/24 Suzanan Olmos RN Registered NurseFamily Yipiagre51/1/24 Suzanna Olmos RN Registered NurseFamily Gtmkumge22/6/24Team MemberRelationshipSpecialtyStart Date End Date Cassius Hendrix MD [address] [facility] 100 [place] [address] (Fax) PCP - GeneralFamily Hhlucouj47/17/24 Shaikh Locke MD [address] [place] [address] PCP - Barre AL08/30/24 Adilia Larose [facility] Social WorkerFamily Kjwwzgvc57/17/24 Devin Cole MD [address] [place] [address] (Fax) CardiologistFamily Gmkwdqkn24/17/24 Saurva Girard MD [address] [place] [address] Bgolxnrzxqhdw70/17/24 Suzanna Olmos, ISABELLE Registered NurseFamily Kkwbjtzx27/1/24 Suzanna Olmos, ISABELLE Registered NurseFamily Qwihvfwf13/6/24Team MemberRelationshipSpecialtyStart Date End Date Cassius Hendrix MD [address] [address] (Fax) PCP - GeneralFamily Ftrbzxuh07/17/24 Adilia Larose [facility] Social WorkerFamily Gwbfgnlp29/17/24 Devin Cole MD [address] [place] [address] (Fax) CardiologistFamily Wctdpeif48/17/24 Saurav [place]ard MD [address] [place] [address], [place] [address] Ycooalhkduiic02/17/24 Suzanna Olmos RN Registered NurseFamily Podunykr10/1/24 Suzanna Olmos RN Registered NurseGundersen Palmer Lutheran Hospital And Clinicsly Rfynhybx30/6/24Team MemberRelationshipSpecialtyStart Date End Date Cassius Hendrix MD [address] [place] [address] (Fax) PCP - GeneralFamily Hecfbays92/17/24 Shaikh Locke MD [address] [place] [address] PCP - Barre AL08/30/24 Adilia Larose [facility] Social WorkerFamily Gymchhrp59/17/24 Devin Cole MD [address] [place] [address] (Fax) CardiologistFamily Atwxmgjt54/17/24 Saurav [place]ard MD [address] [place] [address] Rcucdzchiedzf37/17/24 Suzanna Olmos, ISABELLE [address] [place] [address] Registered NurseFawestover air force base hospital Gmpyrsqn64/1/24 Suzanna Olmos RN [address] [place] [address] Registered NurseGundersen Palmer Lutheran Hospital And Clinicsly Nlgqrnek87/6/24Team MemberRelationshipSpecialtyStart Date End Date Cassius Hendrix MD [address] [address] [place] [address] (Fax) PCP - GeneralFamily Gkbytpzs73/17/24 Shaikh Locke MD [address] [place] [address] PCP - Barre AL08/30/24 Adilia Larose, [facility] [address] [place] [address] Social WorkerFamily Ucqaqwei73/17/24 Devin Cole MD [address] [place] [address] (Fax) CardiologistFamily Hcainvuj13/17/24 Saurav Girard MD [address] [place] [address] Hshtkxsjiggyk63/17/24 Suzanna Olmos RN [address] [place] [address] Registered NurseFamily Kkjqzufj61/1/24 Suzanna Olmos RN [address] [place] [address] Registered NurseFamily Suacqnmg05/6/24Team MemberRelationshipSpecialtyStart Date End Date Cassius Hendrix MD [address] [address] [place] [address] (Fax) PCP - GeneralFamily Avwgewrj23/17/24 Shaikh Locke MD [address] [place] [address] PCP - Barre AL08/30/24 Adilia Larose, C[employer] PRESS OPERATOR [address] [place] [address] Social WorkerMer[facility] Center Abakfjxe70/17/24 Devin Cole MD [address] [place] [address] CardiologistMercy Medical Center Mssjwnpn33/17/24 Saurav Girard MD [address] [place] [address] Megweftfsjyoq58/17/24 Suzanna Olmos, ISABELLE [address] [place] [address] Registered NurseFamily Whytgswc68/1/24 Suzanna Olmos, ISABELLE [address] [place] [address] Registered Nursemily Drigsiwa56/6/24Team MemberRelationshipSpecialtyStart Date End Date Cassius Hendrix MD 112 [facility] 100 [place] [address] (Fax) PCP - GeneralFamily Smhuqzoh54/17/24 Shaikh Locke MD [address] [place] [address] PCP - Obie AL08/30/24 Adilia Larose, CIDER PRESS OPERATOR [address] [place] [address] Social WorkerMer[facility] Medical Center Fijufwcw26/17/24 Devin Cole MD [address] [place] [address] (Fax) CardiologistFamily Luifvtst43/17/24 Saurav Girard MD [address] [place] [address] Nsuyzdbmqnrih50/17/24 Suzanna Olmos RN [address] [place] [address] Registered NurseFamily Twzjqpwe85/1/24 Suzanna Olmos RN [address] [place] [address] Registered NurseFamily Pykjspps16/6/24Team MemberRelationshipSpecialtyStart Date End Date Cassius Hendrix MD [address] [place] [address] (Fax) PCP - GeneralFamily Ixnnqkbm43/17/24 Shaikh Locke MD [address] [place] [address] PCP - Barre AL08/30/24 Devin Cole MD [address] [place] [address] (Fax) CardiologistFamily Bqqgdsuf62/17/24 [place] [address] [place] [address] Hzvmhvcdgueyi58/17/24 Suzanna Olmos RN [address] [place] [address] Registered Nursemily Hjrfsgci90/6/24Team MemberRelationshipSpecialtyStart Date End Date Cassius Hendrix MD [address] [facility] [address] [place] [address] (Fax) PCP - GeneralFamily Aiilfrrh06/17/24 Shaikh Locke MD [address] [place] [address] PCP - Obie MADSEN08/30/24 Devin Cole MD [address] [place] [address] (Fax) Cardiologistmily Beaypmrw05/17/24 Saurav Girard MD [address] [place] [address] Knmmkpcnlzbvf43/17/24 Suzanna Olmos, RN [address] [place] [address] Registered NurseChatuge Regional Hospital08/05/24Te MemberRelationshipSpecialtyStart Date End Date Cassius Hendrix MD [address] [place] [address] (Fax) PCP - GeneralMercy Medical Center Imdxpplt91/17/24 Shaikh Locke MD [address] [place] [address] PCP - Obie AL08/30/24 Adilia Larose LSW [address] [place] [address] Social Workermily Qqtfhvak84/17/247/ Devin Cole MD [address] [place] [address] (Fax) CardiologistFamily Uncdwtnd43/17/24 Saurav Girard MD [address] [place] [address] Asvsepqkxaemh58/17/24 Suaznna Olmos, ISABELLE [address] [place] [address] Registered NurseFamily Fargehvs65/1/248 Suzanna Olmos RN [address] [place] [address] Registered NurseFamily Wdssrvgw31/6/24Team MemberRelationshipSpecialtyStart Date End Date Chuyita Peters MD [address] [place] [address] PCP - Barre AL09/30/2210 Shaikh Locke MD [address] [place] [address] PCP - GeneralInternal Medicine Ray Banda MD PCP - GeneralFamily Medicine05/07/2410 Cassius Hendrix MD [address] [address] (Fax) PCP - GeneralFamily Lvexqovf24/17/24 Shaikh Locke MD [address] [place] [address] PCP - Barre MA08/30/24 Vlad Banuelos LPN Licensed Practical NurseFamily Medicine Jose Maddox, REBECCA Nurse PractitionerFamily Medicine05/07/2410 Adia Pearson, CIDER PRESS OPERATOR [address] [place] [address] Social WorkerFamily Medicine05/26/2410 Adilia Larose, CIDER PRESS OPERATOR [address] [place] [address] Social WorkerFamily Furiyzex82/17/247 Devin Cole MD [address] [place] [address] CardiologistFamily Osixnsrc54/17/24 Saurav Girard MD [address] [place] [address] Oqdmknywkedad61/17/24 Suzanna Olmos, ISABELLE [address] [place] [address] Registered NurseFamily Xzbzkkxp62/1/248 Suzanna Olmos RN [address] [place] [address] Registered NurseFamily Qxzefkwh33/6/24Team MemberRelationshipSpecialtyStart Date End Date Cassius Hendrix MD [address] [place] [address] (Fax) PCP - GeneralFamily Boxyujvu51/17/24 Cassius Hendrix MD [address] [place] [address] PCP - Obie AL05/31/25 Devin Cole MD [address] [place] [address] CardiologistFamily Fifeirno38/17/24 [place] [address] [place] [address] Tpwlpachzofha33/17/24 Suzanna Olmos, ISABLELE [address] [facility] [address] [place] [address] Registered NurseFamily Zfaftora48/6/24 Reason for Visit (unrecogniz ed section and content) ReasonCommentsAnnual ExamReasonCommentsPainReasonCommentsFollow-upReasonComments PainDiabetesReasonOnset DateCommentsMed Cdxdym3303/09/2025ReasonCommentsMed Refill ReasonCommentsConstipationDiabetesPainReasonCommentsDiabetesPain FOR RECORDS PERTAINING TO PATIENTS WHO ARE [...] BE BASED ON THE PRIMARY CLINICAL RECORDS. [employer] provides no warranty or guarantee of the accuracy or completeness of information in this document.
== END 2025-08-02 11:32 | disposition home or self-care (01) ==
LOC: LAB 11:35
PROVIDERS: PCP Family Medicine; Visit Provider Family Medicine
DX: E11.22 Type 2 diabetes mellitus with diabetic chronic kidney disease (principal); N18.32 Chronic kidney disease, stage 3b
CPT/HCPCS: 82043; 82570

== ENCOUNTER 2025-08-02 11:39 | Outpatient (OUT) | payer MEDICARE, SELFPAY ==
--- OUTSIDE RECORDS SUMMARY | 2025-08-02 10:30 | XMS_ITS | Encounter Summary ---
Author Organization [facility] Address [address] [place] [address] Care Team Providers Care Director Trade Name Role Phone Cassius Patel MD Primary Care Provider [phone] Erasmo Cole MD Unavailable [phone] Saurav Girard MD Unavailable [phone] Suzanna Olmos RN Unavailable Cassius Patel MD Unavailable [phone] Reason for Visit * ReasonCommentsAnnual Exam Encounter Details DateTypeDepartmentCare Team (Latest Contact Info)Kpeqtauheia11/03/2025 10:30 AM ESTOffice Visit [facility] 112 [facility] 100 [place] [address] Cassius Patel MD 112 [facility] 100 [place] [address] (Fax) Type 2 diabetes mellitus with stage 3b chronic kidney disease, without long-term current use of insulin (HCC) (Primary Dx); Encounter for Medicare annual wellness exam; Advance directive in chart; Encounter for screening for other disorder; Screening for alcohol problem; Screening for osteoporosis; Menopause; Polypharmacy Social History Tobacco UseTypesPacks/DayYears UsedDateSmoking Tobacco: NeverPassive Smoke Exposure: NeverSmokeless Tobacco: Never Tobacco Cessation:Counseling Given: Yes Alcohol UseStandard Drinks/WeekCommentsNever0 (1 standard drink = 0.6 oz pure alcohol)[id number] Health LiteracyAnswerDate RecordedHow often do you need to have someone help you when you read instructions, pamphlets, or other written material from your doctor or pharmacy?Amtrwefos98/17/2024Humiliation, Afraid, Rape, and Kick questionnaireAnswerDate RecordedWithin the last year, have you been afraid of your partner or ex-partner?No02/18/2023Within the last year, have you been humiliated or emotionally abused in other ways by your partner or ex-partner?No02/18/2023Within the last year, have you been kicked, hit, slapped, or otherwise physically hurt by your partner or ex-partner?No02/18/2023Within the last year, have you been raped or forced to have any kind of sexual activity by your partner or ex-partner?No02/18/2023Social Connection and Isolation Panel AnswerDate RecordedFrequency of Communication with Friends and FamilyNot on file 04/01/2025Frequency of Social Gatherings with Friends and FamilyNot on file 04/01/2025ttends Orthodox ServicesNot on file04/01/2025tive Member of Clubs or OrganizationsNot on file04/01/2025ttends Club or Organization MeetingsNot on file04/01/2025re you , , , , never , or living with a partner?Zewfeql4404/01/2025UDIT-CAnswerDate RecordedQ1: How often do you have a drink containing alcohol?Never06/16/2024Q2: How many drinks containing alcohol do you have on a typical day when you are drinking?Patient does not drink06/16/2024Q3: How often do you have six or more drinks on one occasion?Never06/16/2024Overall Financial Resource Strain (CARDIA)AnswerDate RecordedHow hard is it for you to pay for the very basics like food, housing, medical care, and heating?Not hard at all06/16/2024HQ-2AnswerDate Recorded Patient Health Questionnaire-2 Yannc15810/02/2024[place] of Occupational [facility] - Occupational Stress QuestionnaireAnswerDate RecordedDo you feel stress - tense, restless, nervous, or anxious, or unable to sleep at night because your mind is troubled all the time - these days?Not at all06/16/2024Exercise Vital SignAnswerDate RecordedOn average, how many days per week do you engage in moderate to strenuous exercise (like a brisk walk)?0 days06/16/2024On average, how many minutes do you engage in exercise at this level?0 min06/16/2024Hunger Vital SignAnswerDate RecordedWithin the past 12 months, you worried that your food would run out before you got the money to buymore.Never true06/16/2024 Within the past 12 months, the food you bought just didn't last and you didn't have money to get more.Never true06/16/2024RAPARE - TransportationAnswerDate RecordedIn the past 12 months, has lack of transportation kept you from medical appointments or from getting medications?No06/16/2024In the past 12 months, has lack of transportation kept you from meetings, work, or from getting things needed for daily living?No06/16/2024Housing Stability Vital SignAnswerDate RecordedIn the last 12 months, was there a time when you were not able to pay the mortgage or rent on time?Yes02/18/2023In the last 12 months, how many places have you lived?In the last 12 months, was there a time when you did not have a steady place to sleep or slept in [place] (including now)?No 02/18/2023Housing Stability Vital SignAnswerDate RecordedIn the last 12 months, was there a time when you were not able to pay the mortgage or rent on time?No 06/16/2024Number of Times Moved in the Last YearNot on file06/16/2024t any time in the past 12 months, were you homeless or living in a group home (including now)? No06/16/2024CommentsNoSex and Gender InformationValueDate RecordedSex Assigned at BirthNot on fileLegal PtnNyhznw45/15/2023 6:48 PM EDTGender Identity Not on fileSexual OrientationNot on filedocumented as of this encounter Last Filed Vital Signs Vital SignReadingTime TakenCommentsBlood Kjdqlrzp063/7608/02/2025 10:41 AM EST Zvqgo742908/02/2025 10:41 AM ESTTemperature--Respiratory Rate--Oxygen Saturation 95%08/02/2025 10:41 AM ESTInhaled Oxygen Concentration--Xehemd05 kg (141 lb) 08/02/2025 10:41 AM KSRIyvcnt421.6 cm (5' 4 )08/02/2025 10:41 AM ESTBody Mass Index24. 10:41 AM ESTdocumented in this encounter Functional Status * Over the past 2 weeks, how often have you been bothered by any of the following problems?QuestionAnswerDate of AssessmentAuthorLittle interest or pleasure in doing thingsNot at all08/02/2025 10:00 AM Raquel Mauro MA Feeling down, depressed, or hopelessNot at all08/02/2025 10:00 AM Nj December, MAPatient Health Questionnaire-2 Eckaz47210/02/2024 10:00 AM Raquel Mauro MA * QuestionAnswerDate of AssessmentAuthorTrouble falling or staying asleep, or sleeping too muchNot at all08/02/2025 10:00 AM Nj December, MAFeeling tired or having little energyNot at all08/02/2025 10:00 AM Nj December, MAPoor appetite or overeatingNot at all08/02/2025 10:00 AM Nj December, MAFeeling bad about yourself - or that you are a failure or have let yourself or your family downNot at all08/02/2025 10:00 AM Nj December, MATrouble concentrating on things, such as reading the newspaper or watching television Not at all08/02/2025 10:00 AM Nj December, MAMoving or speaking so slowly that other people could have noticed? Or the opposite - being so fidgety or restless that you have been moving around a lot more than usual.Not at all 08/02/2025 10:00 AM Chelidecember, MAThoughts that you would be better off or hurting yourself in some wayNot at all08/02/2025 10:00 AM Chelidecember, MAPatient Health Questionnaire-9 Ovnbw33210/02/2024 10:00 AM Nj, December, CALE documented as of this encounter Plan of Treatment DateTypeDepartmentCare Team (Latest Contact Info)Biqbumqglop53/06/2026 11:00 AM ESTOffice Visit [facility] [address] [place] [address] Cassius Patel MD [address] [facility] [address] [place] [address] (Fax) NameTypePriorityAssociated DiagnosesOrder ScheduleMicroalbumin / creatinine urine ratioLabRoutine Type 2 diabetes mellitus with stage 3b chronic kidney disease, without long-term current use of insulin (HCC) Expected: 08/02/2025 (Approximate), Expires: 08/02/2026documented as of this encounter Visit Diagnoses Diagnosis Type 2 diabetes mellitus with stage 3b chronic kidney disease, without long-term current use of insulin (HCC)- Primary Encounter for Medicare annual wellness exam Advance directive in chart Encounter for screening for other disorder Screening for alcohol problem Screening for alcoholism Screening for osteoporosis Special screening for osteoporosis Menopause Symptomatic menopausal or female climacteric states Polypharmacy Issue of repeat prescriptions documented in this encounter Additional Health Concerns AssessmentNoted TimePHQ-9 Depression Total Score: 10:00 AM EST documented as of this encounter Care Teams Team MemberRelationshipSpecialtyStart DateEnd Date Cassius Patel MD [address] [facility] [address] [place] [address] (Fax) PCP - GeneralFamily Lkalwojq81/17/24 Cassius Patel MD [address] [facility] [address] [place] [address] (Fax) PCP - Obie MADSEN05/31/25 Erasmo Cole MD [address] [place] [address] CardiologistFamily Spadanww26/17/24 Saurav Girard MD [address] [place] [address] Smsbdyyllqmeq13/17/24 Suzanna Olmos, ISABELLE [address] [place] [address] Registered NurseFamily Ukdvwazu61/6/24documented as of this encounter
--- OUTSIDE RECORDS SUMMARY | 2025-08-02 11:43 | XMS_ITS | Encounter Summary ---
Author Organization [facility] Address [address] [place] [address] Care Team Providers Care Pattern Changer Name Role Phone Cassius Patel MD Primary Care Provider [phone] Erasmo Cole MD Unavailable Saurav Girard MD Unavailable [phone] Suzanna Olmos RN Unavailable [phone] Cassius Patel MD Unavailable Encounter Details DateTypeDepartmentCare Team (Latest Contact Info)Fnffkwgomwp86/03/2025Travel Social History Tobacco UseTypesPacks/DayYears UsedDateSmoking Tobacco: NeverPassive Smoke Exposure: NeverSmokeless Tobacco: NeverAlcohol UseStandard Drinks/WeekComments Never0 (1 standard drink = 0.6 oz pure alcohol)[id number] Health Literacy AnswerDate RecordedHow often do you need to have someone help you when you read instructions, pamphlets, or other written material from your doctor or pharmacy? Hyxgbnrao48/17/2024Humiliation, Afraid, Rape, and Kick questionnaireAnswerDate RecordedWithin the last year, have you been afraid of your partner or ex-partner?No02/18/2023Within the last year, have you been humiliated or emotionally abused in other ways by your partner or ex-partner?No02/18/2023 Within the last year, have you been kicked, hit, slapped, or otherwise physically hurt by your partner or ex-partner?No02/18/2023Within the last year, have you been raped or forced to have any kind of sexual activity by your part ner or ex-partner?02/18/2023Social Connection and Isolation PanelAnswerDate RecordedFrequency of Communication with Friends and FamilyNot on file04/01/2025 Frequency of Social Gatherings with Friends and FamilyNot on 04/01/2025 Attends Moravian ServicesNot on 04/01/2025tive Member of Clubs or OrganizationsNot on file04/01/2025ttends Club or Organization MeetingsNot on 04/01/2025re you , , , , never , or living with a partner?Otjovsw8804/01/2025UDIT-CAnswerDate RecordedQ1: How often do you have a [...] hard at all06/16/2024HQ-2AnswerDate Recorded Patient Health Questionnaire-2 Qmxdm25910/02/2024[facility] Occupational [facility] - Occupational Stress QuestionnaireAnswerDate [...] steady place to sleep or [facility] ([facility])?No 02/18/2023Housing Stability Vital SignAnswerDate RecordedIn the last 12 months, was there a time when you were not able to pay the mortgage or rent on time?No 06/16/2024Number of Times Moved in the Last YearNot on file06/16/2024t any time in the past 12 months, were you homeless or living in a fdc (including now)? No06/16/2024CommentsNoSex and Gender InformationValueDate RecordedSex Assigned at BirthNot on fileLegal XdiWjbwrm77/15/2023 6:48 PM EDTGender Identity Not on fileSexual OrientationNot on filedocumented as of this encounter Functional Status * Over the past 2 weeks, how often have you been bothered by any of the following problems?QuestionAnswerDate of AssessmentAuthorLittle interest or pleasure in doing thingsNot at all08/02/2025 10:00 AM Nj, December, CALE Feeling down, depressed, or hopelessNot at all08/02/2025 10:00 AM Nj, December, KAROLINAatient Health Questionnaire-2 Oalqb54810/02/2024 10:00 AM Nj RaquelCALE * QuestionAnswerDate of AssessmentAuthorTrouble falling or staying asleep, or sleeping too muchNot at all08/02/2025 10:00 AM December, MAFeeling tired or having little energyNot at all08/02/2025 10:00 AM December, MAPoor appetite or overeatingNot at all08/02/2025 10:00 AM December, MAFeeling bad about yourself - or that you are a failure or have let yourself or your family downNot at all08/02/2025 10:00 AM December, MATrouble concentrating on things, such as reading the newspaper or watching television Not at all08/02/2025 10:00 AM December, MAMoving or speaking so slowly that other people could have noticed? Or the opposite - being so fidgety or restless that you have been moving around a lot more than usual.Not at all 08/02/2025 10:00 AM December, MAThoughts that you would be better off or hurting yourself in some wayNot at all08/02/2025 10:00 AM December, MAPatient Health Questionnaire-9 Rqzfr29810/02/2024 10:00 AM Nj December, MA documented as of this encounter Plan of Treatment DateTypeDepartmentCare Team (Latest Contact Info)Kshhjdbujfo26/06/2026 11:00 AM ESTOffice Visit [facility] 112 [facility] 100 [place] [address] Cassius Patel MD 112 [facility] 100 [place] [address] (Fax) documented as of this encounter Visit Diagnoses Not on filedocumented in this encounter Additional Health Concerns AssessmentNoted TimePHQ-9 Depression Total Score: 10:00 AM EST documented as of this encounter Care Teams Team MemberRelationshipSpecialtyStart DateEnd Date Cassius Patel MD [address] [place] [address] (Fax) PCP - GeneralFamily Yebmkcjh32/17/24 Cassius Patel MD 112 [facility] 100 [place] [address] (Fax) PCP - Obie MADSEN05/31/25 Erasmo Cole MD [address] [place] [phone] (Fax) CardiologistFamily Cuasipfn05/17/24 Saurav Girard MD [address] [place] [address] Okbxeevquvdfs13/17/24 Suzanna Olmos, ISABELLE [address] [facility] [address] [place] [address] Registered NurseFamily Knflsusx35/6/24documented as of this encounter
--- OUTSIDE RECORDS SUMMARY | 2025-08-02 11:43 | XMS_ITS | Encounter Summary ---
Author Organization [facility] Address [address] [place] [address] Care Team Providers Care Salvage Determiner Name Role Phone Cassius Patel MD Primary Care Provider [phone] Erasmo Cole MD Unavailable [phone] Saurav Girard MD Unavailable Suzanna Olmos RN Unavailable Cassius Patel MD Unavailable [phone] Encounter Details DateTypeDepartmentCare Team (Latest Contact Info)Wadagbjbmos07/03/2025amboo flowsheet [facility] [address] [facility] 112 [facility] 100 [place] [id number] Cassius Patel MD 112 [facility] [address] [place] [address] Social History Tobacco UseTypesPacks/DayYears UsedDateSmoking Tobacco: NeverPassive Smoke Exposure: NeverSmokeless Tobacco: NeverAlcohol UseStandard Drinks/WeekComments Never0 (1 standard drink = 0.6 oz pure alcohol)[id number] Health Literacy AnswerDate RecordedHow often do you need to have someone help you when you read instructions, pamphlets, or other written material from your doctor or pharmacy? Jzoabsqut47/17/2024Humiliation, Afraid, Rape, and Kick questionnaireAnswerDate RecordedWithin the [...] sexual activity by your part ner or ex-partner?No02/18/2023Social Connection and Isolation PanelAnswerDate RecordedFrequency of Communication with Friends and FamilyNot on file04/01/2025 Frequency of Social Gatherings with Friends and FamilyNot on file04/01/2025 Attends Pentecostalism ServicesNot on file04/01/2025tive Member of Clubs or OrganizationsNot on file04/01/2025ttends Club or Organization MeetingsNot on file04/01/2025re you , , , , never , or living with a partner?Ozzmkmk9804/01/2025UDIT-CAnswerDate RecordedQ1: How often do you have a [...] hard at all06/16/2024HQ-2AnswerDate Recorded Patient Health Questionnaire-2 Krscr49510/02/2024[facility] [place] of Occupational Health - Occupational Stress QuestionnaireAnswerDate [...] steady place to sleep or slept in [facility] ([facility] now)?No 02/18/2023Housing Stability Vital SignAnswerDate RecordedIn the last 12 months, was there a time when you were not able to pay the mortgage or rent on time?No 06/16/2024Number of Times Moved in the Last YearNot on file06/16/2024t any time in the past 12 months, were you homeless or living in a [place] [facility] (including now)? No06/16/2024CommentsNoSex and Gender InformationValueDate RecordedSex Assigned at BirthNot on fileLegal SblKkeequ64/15/2023 6:48 PM EDTGender Identity Not on fileSexual OrientationNot on filedocumented as of this encounter Functional Status * Over the past 2 weeks, how often have you been bothered by any of the following problems?QuestionAnswerDate of AssessmentAuthorLittle interest or pleasure in doing thingsNot at all08/02/2025 10:00 AM Raquel Mauro MA Feeling down, depressed, or hopelessNot at all08/02/2025 10:00 AM NjDecember, MAPatient Health Questionnaire-2 Chpjx81810/02/2024 10:00 AM Raquel Mauro MA * QuestionAnswerDate of AssessmentAuthorTrouble falling or staying asleep, or sleeping too muchNot at all08/02/2025 10:00 AM Chelidecember, MAFeeling tired or having little energyNot at all08/02/2025 10:00 AM Braddecember, MAPoor appetite or overeatingNot at all08/02/2025 10:00 AM Braddecember, MAFeeling bad about yourself - or that you are a failure or have let yourself or your family downNot at all08/02/2025 10:00 AM Braddecember, MATrouble concentrating on things, such as reading the newspaper or watching television Not at all08/02/2025 10:00 AM Chelidecember, MAMoving or speaking so slowly that other people could have noticed? Or the opposite - being so fidgety or restless that you have been moving around a lot more than usual.Not at all 08/02/2025 10:00 AM Chelidecember, MAThoughts that you would be better off or hurting yourself in some wayNot at all08/02/2025 10:00 AM NjDecember, MAPatient Health Questionnaire-9 Ragrm40010/02/2024 10:00 AM Raquel Mauro MA documented as of this encounter Plan of Treatment DateTypeDepartmentCare Team (Latest Contact Info)Bwwjrgliprl32/06/2026 11:00 AM ESTOffice Visit [facility] 112 [facility] 100 [place] [address] Cassius Patel MD 112 [facility] 100 [place] [address] documented as of this encounter Visit Diagnoses Not on filedocumented in this encounter Additional Health Concerns AssessmentNoted TimePHQ-9 Depression Total Score: 10:00 AM EST documented as of this encounter Care Teams Team MemberRelationshipSpecialtyStart DateEnd Date Cassius Patel MD [address] [address] PCP - GeneralFamily Fgjrylho44/17/24 Cassius Patel MD [address] [address] PCP - [place]05/31/25 Erasmo Cole MD [address] [place] [phone] CardiologistFamily Hbqhfrwl04/17/24 Saurav Girard MD [address] [place] [address] Lerwyhzynjxay24/17/24 Suzanna Olmos, ISABELLE [address] [address] Registered NurseFamily Kboajscs27/6/24documented as of this encounter
--- OUTSIDE RECORDS SUMMARY | 2025-08-02 11:43 | XMS_ITS | Clinical Summary ---
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 Role Phone Cassius Patel MD Primary Care Provider Erasmo Johnson MD Unavailable [phone] Saurav Girard MD Unavailable Suzanna Olmos RN Unavailable Cassius Patel MD Unavailable [phone] Allergies Active AllergyReactionsCriticalityNoted SlspPpojbbthKcrupfwuEuugv42/19/2023 XyinpxmrglvedqWyama18/19/2023 Medications MedicationSigDispense QuantityRefillsLast FilledStart DateEnd DateStatus atorvastatin (Lipitor) 40 MG tablet Active cholecalciferol (Vitamin D-3) 25 MCG (1000 UT) capsule Take 1,000 Units by mouth Daily OTCActive lisinopril 2.5 MG tablet Indications:HypertensionHold if systolic is 100 or lessActive spironolactone (Aldactone) 25 MG tablet Take 0.5 tablets by mouth 1 (one) time each day.08/27/2018Active OneTouch Ultra test strip Indications: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 mellitus (HCC) USE TO TEST BLOOD SUGAR ONCE DAILY 100 strip ctive ezetimibe (Zetia) 10 MG tablet Take 10 mg by mouth in the morning.06/14/2024Active Eliquis 2.5 MG tablet Take 2.5 mg by mouth in the morning and 2.5 mg before bedtime.Active Blood Glucose Monitoring Suppl (ClearCare) w/Device kit Indications:Type 2 diabetes mellitus with stage 3b chronic kidney disease, without long-term current use of insulin ([facility])Check BS bid prn 1 kit 5Active glucose blood (ClearCare) test strip Indications:Type 2 diabetes mellitus with stage 3b chronic kidney disease, without long-term current use of insulin ([facility])Check BS bid prn 100 strip 5Active Lancets (archify Delica Plus Mufxvn28A) [facility] Indications:Type 2 diabetes mellitus with stage 3b chronic kidney disease, without long-term current use of insulin ([facility])Check BS bid prn 100 each tive furosemide (Lasix) 20 MG tablet Take 20 mg by mouth if neededActive carvedilol (Coreg) 3.125 MG tablet Indications:Chronic systolic heart failure (HCC)Take 1 tablet (3.125 mg) by mouth in the morning and 1 tablet (3.125 mg) in the evening. Take with meals. /ctive acetaminophen (Tylenol) 325 MG capsule Indications:PainTake 325 mg by mouth every 6 (six) hours if needed for mild pain Active senna-docusate (Senexon-S) 8.6-50 MG tablet Indications:Chronic constipationTake 1 tablet by mouth Daily 90 tablet /ctive Additional Information Patient taking differently:1 tablet Oral Daily,(No times of day reported), Reported on 08/02/2025 HYDROcodone-acetaminophen ([place]) 5-325 MG tablet Indications:Chronic pain syndromeTake 1 tablet by mouth Daily as needed for moderate pain Do not start before September 11, 2025. 30 tablet 09/11//ctive HYDROcodone-acetaminophen ([place]) 5-325 MG tablet Indications:Chronic pain syndromeTake 1 tablet by mouth Daily as needed for severe pain Do not start before August 12, 2025. 30 tablet 08/12/20241001/5Active HYDROcodone-acetaminophen ([place]) 5-325 MG tablet Indications:Chronic pain syndromeTake 1 tablet by mouth Daily as needed for severe pain or moderate pain 30 tablet /5Active empagliflozin (Jardiance) 10 MG Indications:Type 2 diabetes mellitus with stage 3b chronic kidney disease, without long-term current use of insulin (HCC)Take 1 tablet (10 mg) by mouth Daily 90 tablet 504/ctive aspirin 81 MG EC tablet Take 81 mg by mouth in the morning.07/13/2025Discontinued(Med list cleanup) potassium chloride (Klor-Con) 20 MEQ packet Take 20 mEq by mouth Daily08/02/2025Discontinued(Med list cleanup) HYDROcodone-acetaminophen ([place]) 5-325 MG tablet Indications:Chronic pain syndromeTake 1 tablet by mouth Daily as needed for severe pain or moderate pain 30 tablet /Discontinued(Reorder) HYDROcodone-acetaminophen ([place]) 5-325 MG tablet Indications:Chronic pain syndromeTake 1 tablet by mouth Daily as needed for moderate pain Do not start before June 12, 2025. 30 tablet /Discontinued(Reorder) HYDROcodone-acetaminophen ([place]) 5-325 MG tablet Indications:Chronic pain syndromeTake 1 tablet by mouth Daily as needed for severe pain Do not start before May 13, 2025. 30 tablet /Discontinued(Reorder) empagliflozin (Jardiance) 10 MG Indications:Type 2 diabetes mellitus with stage 3b chronic kidney disease, without long-term current use of insulin (HCC)Take 1 tablet (10 mg) by mouth Daily 90 tablet Discontinued(Reorder) Active Problems ProblemNoted DateDiagnosed DateSick sinus /28/2025 Overview (07/27/2025): SICK SINUS SYNDROME ,Rendering provider NPI :[id number] Paroxysmal atrial femnzdbmevzq86/06/2025 Overview (07/05/2025): PAROXYSMAL ATRIAL FIBRILLATION ,Rendering provider NPI :[id number] Chronic abvatvyjpibj64/22/7282Avbxejjearya14/02/2024History of breast cancer 07/28/2024 Overview (07/28/2024): Left Mastectomy 2002 Controlled substance agreement zhuutl234Postural kyphosis of cervicothoracic yxcysq8107/16/2024Mobitz type 2 second degree heart block 4Atherosclerosis of [place] coronary artery of [place] heart without angina ixjprfmo53/15/2023 Assessment & Plan (02/18/2023 4:02 PM EDT): Per dr johnson rcent stress test was abnl has follow up scheduled Cardiac LV ejection fraction of 20-34%02/11/2023 Assessment & Plan (02/18/2023 4:02 PM EDT): Per cardiology Chronic systolic heart kpyyzoi0002/11/2023 Assessment & Plan (03/26/2024 10:32 AM EDT): [...] (02/18/2023 4:03 PM EDT): Per cardiology Primary tkgydcjewnow28/15/2023 Assessment & Plan (06/16/2024 12:15 PM EDT): [...] Plan (02/18/2023 4:03 PM EDT): Overall stable Xrfpwsdtolsdes35/15/2023 Assessment & Plan (06/16/2024 12:15 PM EDT): [...] 4:06 PM EDT): Cont with atorvastatin Ischemic oawgtwxjpbwtxg17/15/2023 Assessment & Plan (09/25/2023 1:22 PM EST): Improved EF. On GDMT. Follows Cardiology. Assessment & Plan (02/18/2023 4:03 PM EDT): Per cardiology Lumbosacral spondylosis without uqapymcqab77/15/2023 Assessment & Plan (02/18/2023 4:05 PM EDT): Currently stable Chronic pain toirftsa54/15/2023resence of cardiac rnikbzkmb35/15/2023 Assessment & Plan (02/18/2023 4:03 PM EDT): Managed by cardiology Stage 3b chronic kidney enaiuiq0902/11/2023 Assessment & Plan (06/16/2024 12:17 PM EDT): [...] cont to monitor Type 2 diabetes mellitus with stage 3b chronic kidney disease, without long-term current use of ewepqlh3402/11/2023 Assessment & Plan (06/16/2024 12:16 PM EDT): [...] active complaints to offer. Check A1C Ventricular utrknepkpco40/15/2023 Assessment & Plan (02/18/2023 4:04 PM EDT): Per cardiology Conduction disorder of the heart04/27/2014 Overview (03/26/2024): MOBITZ II S/P PACEMAKER PLACEMENT Congestive heart gsprfjt0604/30/2013Nonrheumatic tricuspid valve disorder 04/30/2013 Overview (07/16/2024): TRICUSPID REGURGITATION, status post ring valvuloplasty Resolved Problems ProblemNoted DateDiagnosed DateResolved CxmzTqeu19 Assessment & Plan (03/26/2024 10:33 AM EDT): Recent fall, she tripped over something. Otherwise, stable gait and no unsteadiness. No need for cane/walker. Other awyfvjhpmfmncq41outine general medical examination at health care wumfqeij20 Assessment & Plan (02/18/2023 4:12 PM EDT): Labs, vaccinations and safety reviewed. Primary malignant neoplasm of uklpvo62Heart block04/30/2013 07/16/2024 Overview (03/26/2024): MOBITZ II S/P PACEMAKER PLACEMENT Primary fnmiphqydprhpj17 Overview (10/19/2024): ISCHEMIC CARDIOMYOPATHY Encounters DateTypeDepartmentCare CeymOtvfinmnkhr17/03/2025 10:30 AM ESTOffice Visit [facility] [address] [place] [address] Cassius Patel MD Type 2 diabetes mellitus with stage 3b chronic kidney disease, without long-term current use of insulin (HCC) (Primary Dx); Encounter for Medicare annual wellness exam; Advance directive in chart; Encounter for screening for other disorder; Screening for alcohol problem; Screening for osteoporosis; Menopause; Gsizmymgtija75/03/2025amboo flowsheet [facility] [place] [address] [place] [address] Cassius Patel MD 08/02/20252235Qkduod14/14/2025 2:00 PM EDTOffice Visit [facility] [place] [address] [place] [address] Cassius Patel MD Chronic pain syndrome; Controlled substance agreement signed; Type 2 diabetes mellitus with stage 3b chronic kidney disease, without long-term current use of insulin (HCC); Paroxysmal atrial fibrillation (HCC); Tjrjjragsvfj20/14/2025Bamboo flowsheet [facility] [place] [address] [place] [address] Cassius Patel MD 07/13/20258950Xjgeyd08/06/2025Patient Outreach [facility] [address] [place] [address] Suzanna Olmos RN 06/24/2025Patient Outreach [facility] [address] [place] [address] Suzanna Olmos RN 06/17/2025Telephone [facility] [place] [facility] [address] [place] [address] Charlotte Blackmon MA 06/04/2025Patient Outreach [facility] [address] [place] [address] Suzanna Olmos RN 05/25/2025External Result Encounter [facility] [place] [address] Cassius Patel MD 05/05/2025Patient Outreach [facility] [address] [place] [address] Suzanna Olmos, ISABELLE 05/03/2025Refill [facility] [address] [facility] [address] [place] [address] Suzanna Olmos, RN Type 2 diabetes mellitus with stage 3b chronic kidney disease, without long-term current use of insulin (HCC); Chronic pain syndromefrom Last 3 Months Immunizations ImmunizationAdministration DatesNext DueInfluenza, High Dose Seasonal, Preservative Free07/06/2025,08/05/2024,07/05/2017,07/10/2016,10/04/2015, 06/26/2013Influenza, High-dose Seasonal, Quadrivalent, Preservative Free 07/19/2022,08/04/2021,07/05/2017Influenza, Seasonal, Quadrivalent, Adjuvanted 07/11/2023,08/04/2021,06/27/2020Influenza, injectable, quadrivalent, preservative free06/27/2020,06/23/2019,06/23/2018Influenza, seasonal, injectable, preservative free06/28/2020Influenza, seasonal, intradermal, preservative free06/30/2014Influenza, trivalent, myfriuogub83/24/2019Moderna SARS-CoV-2 Booster Rupdzmcdumv65/16/2022Pneumococcal Conjugate PCV 1303, 04/25/2015,04/21/2015Pneumococcal Polysaccharide IZHN5775RSV, recombinant, protein subunit RSVpreF, adjuvant reconstitu, 120mcg/0.5mL, PF (Arexvy)08/20/20244509HCHR-NnZ-2, Mpdfdotawnq14/13/4746Xfii53Zoster, Vtjxwtnwiag63/24/2019,12/18/2018 Family History Medical HistoryRelationNameCommentsNo Known ProblemsDaughter6 daughter(s)Heart diseaseFatherEarl Neonnm39 yrsHeart diseaseMotherOlive GilligRelationNameStatus CommentsDaughterAliveFatherEarl GilligDeceasedMotherOlive GilligDeceased Social History Tobacco UseTypesPacks/DayYears UsedDateSmoking Tobacco: NeverPassive Smoke Exposure: NeverSmokeless Tobacco: Never Tobacco Cessation:Counseling Given: Yes Alcohol UseStandard Drinks/WeekCommentsNever0 (1 standard drink = 0.6 oz pure alcohol)yyqjvbnqR0869 Health LiteracyAnswerDate RecordedHow often do you need to have someone help you when you read instructions, pamphlets, or other written material from your doctor or pharmacy?Oojbntpzs96/17/2024Humiliation, Afraid, Rape, and Kick questionnaireAnswerDate RecordedWithin the [...] with Friends and FamilyNot on file 04/01/2025ttends Scientologist ServicesNot on file04/01/2025tive Member of Clubs or OrganizationsNot on file04/01/2025ttends Club or Organization MeetingsNot on file04/01/2025re you , , , , never , or living with a partner?Iaabujj8504/01/2025UDIT-CAnswerDate RecordedQ1: How often do you have a [...] hard at all06/16/2024HQ-2AnswerDate Recorded Patient Health Questionnaire-2 Opuxs469[facility] - Occupational Stress QuestionnaireAnswerDate [...] steady place to sleep or slept in ashelter (including now)?No 02/18/2023Housing Stability Vital SignAnswerDate RecordedIn the last 12 months, was there a time when you were not able to pay the mortgage or rent on time?No 06/16/2024Number of Times Moved in the Last YearNot on file4At any time in the past 12 months, were you homeless or living in a prison (including now)? No4CommentsNoSex and Gender InformationValueDate RecordedSex Assigned at BirthNot on fileLegal BvaWxhrtu26/15/2023 6:48 PM EDTGender Identity Not on fileSexual OrientationNot on file Last Filed Vital Signs Vital SignReadingTime TakenCommentsBlood Mojabmtk714/7611 10:41 AM EST Uawoi030908/02/2025 10:41 AM XPUJcbeqvrhcow43.2 ??C (97.2 ??F)06/16/2024 9:29 AM EDTRespiratory Borp462310/13/2022 9:05 AM ESTOxygen Fkfgslrmwr78%08/02/2025 10:41 AM ESTInhaled Oxygen Concentration--Xrnvqh28 kg (141 lb)08/02/2025 10:41 AM EST Wzceig260.6 cm (5' 4 )08/02/2025 10:41 AM ESTBody Mass Index24. 10:41 AM EST Plan of Treatment DateTypeDepartmentCare Team (Latest Contact Info)Cidrguhwnmt38/06/2026 11:00 AM ESTOffice Visit [facility] [address] [facility] [address] [place] [address] Cassius Patel MD [address] [facility] 100 [place] [address] Health MaintenanceDue DateLast DoneCommentsDiabetes: Retinopathy Screening 5004/16/2024, 10/16/2023, 01/29/2023, Additional history existsDiabetes: Urine Protein Hayctidke87, 06/24/2024, 12/17/2023, Additional history existsMedicare Annual Wellness (AWV), 03/26/2024, 03/26/2024, Additional history existsCOVID-19 Vaccine ( season) , 07/22/2024, 09/06/2023, Additional history existsDiabetes: Hemoglobin A1C607/04/2025, 01/13/2025, 03/26/2024, Additional history existsPneumococcal Vaccine: 65+ ZkbauBikspdhnk23/26/2021, 04/25/2015, 04/21/2015, Additional history existsInfluenza GvckjruOqgvmhrxf49/07/2025, 08/05/2024, 07/11/2023, Additional history exists Procedures Procedure NamePriorityDate/TimeAssociated DiagnosisCommentsBI MAMMOGRAM SCREENING TOMOSYNTHESIS RIGHT05/25/2025 10:02 AM EDT HEMOGLOBIN B7RNyapgfx98/08/2025 8:32 AM EDT Type 2 diabetes mellitus with stage 3b chronic kidney disease, without long-term current use of insulin (HCC) DIABETIC RETINOPATHY SCREENING - OU - BOTH TPBLWlbfzkm24/18/2024 9:13 AM EDT MICROALBUMIN / CREATININE URINE CCJHFTlwcywn28/21/2022 from Last 3 Months or Most Recently Relevant to Health Maintenance Results * Right screening mammogram with tomosynthesis (05/25/2025 10:02 AM EDT) Anatomical RegionLateralityModalityBreastRightMammographySpecimen (Source) Anatomical Location / LateralityCollection Method / VolumeCollection Time Received Time05/25/2025 10:02 AM EDT Narrative 05/25/2025 10:01 AM EDT THIS EXAM WAS PERFORMED AT [facility] ??1935 [id number] EXAM: MAMM SCREENING UNILAT RT W CAD, 05/24/2025 2:54 PM CLINICAL INDICATIONS: ??Screening mammogram, encounter for; H/O left mastectomy, Screening COMPARISON: Multiple prior annual screening mammograms dating back to 01/09/2019 TECHNIQUE: Digital tomosynthesis MLO and CC views of the right breast were obtained, with creation of synthetic 2D views. Computer aided detection was utilized. FINDINGS: The breasts are heterogeneously dense, which may obscure small masses. ?? There are no suspicious masses, calcifications, or areas of architectural distortion. IMPRESSION: No mammographic evidence of malignancy. BI-RADS: BI-RADS 1 - Negative RECOMMENDATION: ??Routine screening mammogram in 1 year. RISK ASSESSMENT: TC Lifetime risk: Not calculated%. Tyrer-Cuzick score not calculated. The TC risk model does not apply to patients with a personal history of breast malignancy, those over the age of 84, male, or transgender patients. Finalized by Purnima Crews MD on 05/25/2025 10:01 AM 1 c MAMM 1 YR Accredited Performing Facility: [facility] - [facility]ammography[facility] [address] [facility] [id number] Procedure Note Radiology, Radiologist, MD - 05/25/2025 THIS EXAM WAS PERFORMED AT [facility] 1935 [id number] EXAM: MAMM SCREENING UNILAT RT W CAD, 05/24/2025 2:54 PM CLINICAL INDICATIONS: Screening mammogram, encounter for; H/O leftmastectomy, Screening COMPARISON: Multiple prior annual screening mammograms dating back to01/09/2019 TECHNIQUE: Digital tomosynthesis MLO and CC views of the right breast were obtained, with creation of synthetic 2D views. Computer aided detectionwas utilized. FINDINGS: The breasts are heterogeneously dense, which may obscure small masses. There are no suspicious masses, calcifications, or areas of architectural distortion. IMPRESSION: No mammographic evidence of malignancy. BI-RADS: BI-RADS 1 - Negative RECOMMENDATION: Routine screening mammogram in 1 year. RISK ASSESSMENT: TC Lifetime risk: Not calculated%. Tyrer-Cuzick score not calculated. The TC risk model does not apply topatients with a personal history of breast malignancy, those over the ageof 84, male, or transgender patients. Finalized by Purnima Crews MD on 05/25/2025 10:01 AM 1 c MAMM 1 YR Accredited Performing Facility: [facility] [address] [facility] [address] Authorizing ProviderResult TypeResult StatusCassius Patel MDIMG BI PROCEDURES Final Result * (ABNORMAL) Hemoglobin A1c (04/06/2025 8:32 AM EDT)ComponentValueRef RangeTest MethodAnalysis TimePerformed AtPathologist SignatureHemoglobin A1C6.8(H)<5.7 % QUESTComment: For someone without known diabetes, a hemoglobin [...] A1c for diagnosis of diabetes for children. Specimen (Source)Anatomical Location / LateralityCollection Method / Volume Collection TimeReceived TimeBloodVenous blood specimen / Raiitul6204/06/2025 8:32 AM EDT04/06/2025 8:33 AM EDT Narrative Resulting Agency Comment Performing Organization Information ?Site ID: [id number] ?Name: [facility] ?Address: [address] [place] [address], [address] [place] [phone] ?Director: Dami Rossi MD Authorizing ProviderResult TypeResult StatusCassius Patel MDSURGERY CENTER [facility] BLOOD ORDERABLESFinal ResultPerforming OrganizationAddressCity/State/ZIP CodePhone Number QUEST * Diabetic Retinopathy Screening - OU - Both Eyes (04/16/2024 9:13 AM EDT) Anatomical RegionLateralityModalityHeadOther Narrative Authorizing ProviderResult TypeResult StatusChuyita Peters MDOPHTH PHOTOGRAPHY Final Result * Microalbumin / creatinine urine ratio (08/20/2022)ComponentValueRef RangeTest MethodAnalysis TimePerformed AtPathologist SignatureCREATININE, RANDOM URINE21 20 - 275[facility] EX[facility] LABALBUMIN, URINE0.3See Note:[facility] EXTERNAL LABComment: Reference Range: Reference Range Not established MICROALBUMIN/CREATININE RATIO, RANDOM URINE14<30[facility] EXTERNAL LABComment: The ADA defines abnormalities in albumin excretion as follows: Albuminuria Category ?Result (mcg/mg creatinine) Normal to Mildly increased <30 Moderately increased ? 30-299 Severely increased > OR = 300 The ADA recommends that at least two of three specimens collected within a 3-6 month period be abnormal before considering a patient to be within a diagnostic category. Specimen (Source)Anatomical Location / LateralityCollection Method / Volume Collection TimeReceived Time08/20/2022 Narrative Authorizing ProviderResult TypeResult StatusChuyita Peters MDLAB URINE ORDERABLES Final ResultPerforming OrganizationAddressCity/State/ZIP CodePhone Number [facility] from Last 3 Months or Most Recently Relevant to Health Maintenance Insurance Advance Directives TypeDate RecordedPatient RepresentativeExplanationAdvance Directives and Living Will07/28/2024 3:34 [id number] living Will * DNR (Latest Code Status on File) Date ActivatedDate InactivatedComments05/29/2024 8:16 AM Care Teams Team MemberRelationshipSpecialtyStart DateEnd Date Cassius Patel MD [address] [place] [address] PCP - GeneralFamily Yikjhtfp58/17/24 Cassius Patel MD [address] [place] [address] PCP - Obie MADSEN05/31/25 Erasmo Johnson MD [address] [place] [address] CardiologistFamily Tnwikvec68/17/24 Saurav Girard MD [address] [place] [address] Egevrtitswnge49/17/24 Suzanna Olmos, ISABELLE [address] [facility] [address] [place] [address] Registered NurseFamily Zchawnae59/6/24
--- OUTSIDE RECORDS SUMMARY | 2025-08-02 11:43 | XMS_ITS | Encounter Summary ---
Author Organization [facility] Address [address] [place] [address] Care Team Providers Care Meter Shop Supervisor Name Role Phone Cassius Patel MD Primary Care Provider Erasmo Cole MD Unavailable [phone] Saurav Girard MD Unavailable [phone] Suzanna Olmos RN Unavailable [phone] Cassius Patel MD Unavailable [phone] Encounter Details DateTypeDepartmentCare Team (Latest Contact Info)Hluvedymdkn49/18/2025Telephone [facility] [address] [facility] [place] [phone] Charlotte Blackmon MA Social History Tobacco UseTypesPacks/DayYears UsedDateSmoking Tobacco: NeverPassive Smoke Exposure: NeverSmokeless Tobacco: NeverAlcohol UseStandard Drinks/WeekComments Never0 (1 standard drink = 0.6 oz pure alcohol)[id number] Health Literacy AnswerDate RecordedHow often do you need to have someone help you when you read instructions, pamphlets, or other written material from your doctor or pharmacy? Lirurjcck98/17/2024Humiliation, Afraid, Rape, and Kick questionnaireAnswerDate RecordedWithin the last year, have you been afraid of your partner or ex-partner?No02/18/2023Within the last year, have you been humiliated or emotionally abused in other ways by your partner or ex-partner?No02/18/2023 Within the last year, have you been kicked, hit, slapped, or otherwise physically hurt by your partner or ex-partner?02/18/2023Within the last year, have you been raped or forced to have any kind of sexual activity by your part ner or ex-partner?02/18/2023Social Connection and Isolation PanelAnswerDate RecordedFrequency of Communication with Friends and FamilyNot on file04/01/2025 Frequency of Social Gatherings with Friends and FamilyNot on 04/01/2025 Attends Mandaen ServicesNot on 04/01/2025tive Member of Clubs or OrganizationsNot on file04/01/2025ttends Club or Organization MeetingsNot on file04/01/2025re you , , , , never , or living with a partner?Puxpjzl6804/01/2025UDIT-CAnswerDate RecordedQ1: How often do you have a [...] hard at all06/16/2024HQ-2AnswerDate Recorded Patient Health Questionnaire-2 Zbxkz834[facility] [place] of Occupational Health - Occupational Stress QuestionnaireAnswerDate RecordedDo you feel stress - tense, restless, nervous, or anxious, or unable to sleep at night because your mind is troubled all the time - these days?Not at all06/16/2024Exercise Vital SignAnswerDate RecordedOn average, how many days per week do you engage in moderate to strenuous exercise (like a brisk walk)?0 days09/17/2024On average, how many minutes do you engage [...] steady place to sleep or slept in [facility] (including now)?No 02/18/2023Housing Stability Vital SignAnswerDate RecordedIn the last 12 months, was there a time when you were not able to pay the mortgage or rent on time?No 06/16/2024Number of Times Moved in the Last YearNot on file06/16/2024t any time in the past 12 months, were you homeless or living in a long-term (including now)? No06/16/2024CommentsNoSex and Gender InformationValueDate RecordedSex Assigned at BirthNot on fileLegal IgoHjfsuk39/15/2023 6:48 PM EDTGender Identity Not on fileSexual OrientationNot on filedocumented as of this encounter Functional Status * Over the past 2 weeks, how often have you been bothered by any of the following problems?QuestionAnswerDate of AssessmentAuthorLittle interest or pleasure in doing thingsNot at all07/13/2025 1:58 PM Raquel Barraza MA Feeling down, depressed, or hopelessNot at all07/13/2025 1:58 PM EDTYeakle, December, [facility] Health Questionnaire-2 Ieclk657 1:58 PM Madi, December, [place] documented as of this encounter Miscellaneous Notes * Telephone Encounter - Charlotte Blackmon MA - 07/20/2025 7:48 AM EDT Left aid back from repair. Settings to be restored and aid to be transferred to [place] for pickle water pump operator. Patient to be notified that aid is ready for pickle water pump operator. * Telephone Encounter - RENEE Lopez - 07/14/2025 3:32 PM EDT Left aid dropped off in [place]. Aid is working and I can hear the start up music. This is the 2nd time pt dropped off aid and said it was not working. Aid is possibly intermittent. Will start rapid exchange with Signia. * Telephone Encounter - Charlotte Blackmon MA - 07/06/2025 7:52 AM EDT Rapid exchange on aid is complete. Aid is charged and in bin for transfer to [place]. Spoke to Addie who states the other aid is not working again. She will drop off when picking up repaired aid. * Telephone Encounter - RENEE Lopez - 06/30/2025 1:55 PM EDT Both aids dropped off in [place] office 06-30-25. Note says aids are not working. Wax on both domes. Left aid is working, right aid is not working. Changed right disbursement clerk and aid still does not work. Will send right aid in for in warranty repair. Will leave left aid in [place] office. Pt can pickle water pump operator aid if she wants. Called pt's daughter Addie and advised her of above. Asked about left aid - pt said just today she did not hear start up sounds and aid didn't seem to be working. I told Addie aid is working now. I can still send it in if they prefer. Addie decided to repair the right aid pickle water pump operator theleft aid. She will try to pickle water pump operator left aid today or tomorrow before noon. * Telephone Encounter - Charlotte Blackmon MA - 06/17/2025 11:31 AM EDT Patient's daughter, Addie, called stating that her mom's hearing aid is not working. Asked for an appointment on Saturday the . There is no availibility on the , however I did call Addie back and advise that the hearing aid could be dropped off in the [place] or [place] office and we could assess to see if the problem could be fixed in office or if it needs to be sent in. documented in this encounter Plan of Treatment DateTypeDepartmentCare Team (Latest Contact Info)Yxrnxmucpzp48/06/2026 11:00 AM ESTOffice Visit [facility] Family Medicine [address] [facility] [address] [place] [address] Cassius Patel MD 112 [facility] [address] [place] [address] documented as of this encounter Visit Diagnoses Not on filedocumented in this encounter Additional Health Concerns AssessmentNoted TimePHQ-9 Depression Total Score: 9:21 AM EDT documented as of this encounter Care Teams Team MemberRelationshipSpecialtyStart DateEnd Date Cassius Patel MD [address] [address] [place] [address] PCP - GeneralFamily Orisuagh77/17/24 Cassius Patel MD [address] [place] [address] [address] [place] [address] (Fax) PCP - Obie MADSEN05/31/25 Erasmo Cole MD [address] [place] [address] CardiologistFamily Urxugofr08/17/24 Saurav Girard MD [address] [place] [address] Rlwrgfpyqqfam97/17/24 Suzanna Olmos, ISABELLE [address] [facility] [address] [place] [address] Registered NurseFamily Olabwnte23/6/24documented as of this encounter
--- OUTSIDE RECORDS SUMMARY | 2025-08-02 11:43 | XMS_ITS | Clinical Summary ---
Author Organization [facility] Address [address] [place] [address] Phone Care Team Providers Care Irrigation Tax Assessor Collector Name Role Phone Unavailable Primary Care Provider Unavailabl e Social History Tobacco UseTypesPacks/DayYears UsedDateSmoking Tobacco: Never Assessed CommentsUnknownSex and Gender InformationValueDate RecordedSex Assigned at Not on fileLegal KiwBglwil19/25/2022 5:26 PM ESTGender IdentityNot on fileSexual OrientationNot on file Plan of Treatment Not on file
--- OUTSIDE RECORDS SUMMARY | 2025-08-02 11:43 | XMS_ITS | Encounter Summary ---
Author Organization [facility] Address [address] [place] [address] Care Team Providers Care Simulation Specialist Name Role Phone Chuyita Peters MD Unavailable Shaikh NANETTE Locke Primary Care Provider [phone] Vlad Banuelos MEAT STRINGER Unavailable Unavailable Ray Banda MD Primary Care Provider [phone] Suzette Maddox PRINTING MACHINE OPERATOR Unavailable [phone] Adia Pearson OPENSTACK DEVELOPER Unavailable [phone] Adilia Larose OPENSTACK DEVELOPER Unavailable [phone] Cassius Patel MD Primary Care Provider [phone] Devin Kelsey MD Unavailable [phone] Saurav Girard MD Unavailable [phone] Suzanna Olmos RN Unavailable [phone] Suzanna Olmos RN Unavailable [phone] Shaikh NANETTE Locke Unavailable [phone] Cassius Patel MD Unavailable [phone] Encounter Details DateTypeDepartmentCare Team (Latest Contact Info)Rcfyinerbnp75/21/2024Clinisync Result Encounter [facility] External Department Unsolicited Provider, Generic External Data Social History Tobacco UseTypesPacks/DayYears UsedDateSmoking Tobacco: NeverSmokeless Tobacco: NeverAlcohol UseStandard Drinks/WeekCommentsNever0 (1 standard drink = 0.6 oz pure alcohol)[id number] Health LiteracyAnswerDate RecordedHow often do you need to have someone help you when you read instructions, pamphlets, or other written material from your doctor or pharmacy?Rdkdfiejs00/17/2024Humiliation, Afraid, Rape, and Kick questionnaireAnswerDate RecordedWithin the last year, have you been afraid of your partner or ex-partner?No02/18/2023Within the last year, have you been humiliated or emotionally abused in other ways by your partner or ex-partner?No02/18/2023Within the last year, have you been kicked, hit, slapped, or otherwise physically hurt by your partner or ex-partner?No 02/18/2023Within the last year, have you been raped or forced to have any kind of sexual activity by your partner or ex-partner?No02/18/2023Social Connection and Isolation PanelAnswerDate RecordedFrequency of Communication with Friends and FamilyNot on file04/01/2025Frequency of Social Gatherings with Friends and FamilyNot on file04/01/2025ttends Latter Day ServicesNot on file04/01/2025tive Member of Clubs or OrganizationsNot on file04/01/2025ttends Club or Organization MeetingsNot on file04/01/2025re you , , , , never , or living with a partner?Uleggqa1204/01/2025UDIT-C AnswerDate RecordedQ1: How often do you have a drink containing alcohol?Never 06/16/2024Q2: How many drinks containing alcohol do you have on a typical day when you are drinking?Patient does not drink06/16/2024Q3: How often do you have six or more drinks on one occasion?Never06/16/2024Overall Financial Resource Strain (CARDIA)AnswerDate RecordedHow hard is it for you to pay for the very basics like food, housing, medical care, and heating?Not hard at all09/ PHQ-2AnswerDate RecordedPatient Health Questionnaire-2 Hfxrl373[facility] [place] of Occupational Health - Occupational Stress QuestionnaireAnswerDate RecordedDo you feel stress - tense, restless, nervous, or anxious, or unable to sleep at night because yourmind is troubled all the time - these days?Not at all 06/16/2024Exercise Vital SignAnswerDate RecordedOn average, how many days per week do you engage in moderate to strenuous exercise (like a brisk walk)?0 days 06/16/2024On average, how many minutes do you engage in exercise at this level?0 min06/16/2024Hunger Vital SignAnswerDate RecordedWithin the past 12 months, you worried that your food would run out before you got the money to buymore.Never true06/16/2024Within the past 12 months, the food you bought just didn't last and you didn't have money to get more.Never true06/16/2024RAPARE - TransportationAnswerDate RecordedIn the past 12 months, has lack of transportation kept you from medical appointments or from getting medications?No 06/16/2024In the past 12 months, has lack of transportation kept you from meetings, work, or from getting things needed for daily living?No06/16/2024 Housing Stability Vital SignAnswerDate RecordedIn the last 12 months, was there a time when you were not able to pay the mortgage or rent on time?Yes02/18/2023 In the last 12 months, how many places have you lived?In the last 12 months, was there a time when you did not have a steady place to sleep or slept in ashelter (including now)?No02/18/2023Housing Stability Vital SignAnswerDate RecordedIn the last 12 months, was there a time when you were not able to pay the mortgage or rent on time?No06/16/2024Number of Times Moved in the Last Year Not on file06/16/2024t any time in the past 12 months, were you homeless or living in a jail (including now)?No06/16/2024CommentsUnknownSex and Gender InformationValueDate RecordedSex Assigned at BirthNot on fileLegal Sex Uiinom5412/12/2022 6:48 PM EDTGender IdentityNot on fileSexual OrientationNot on filedocumented as of this encounter Functional Status * AUDIT-C ScoreAnswerDate of MbityrhdauRmafop547/17/2024 9:02 AM Kelvin Smyth * Q1: How often do you have a drink containing alcohol?AnswerDate of Assessment TsocgzTcypu04/17/2024 9:02 AM Kelvin Smyth * Q2: How many drinks containing alcohol do you have on a typical day when you are drinking?AnswerDate of AssessmentAuthorPatient does not drink06/16/2024 9:02 AM Kelvin Smyth * Q3: How often do you have six or more drinks on one occasion?AnswerDate of ZscdbrukspDqflwnRmorf58/17/2024 9:02 AM Haja Generic * Over the past 2 weeks, how often have you been bothered by any of the following problems?QuestionAnswerDate of AssessmentAuthorLittle interest or pleasure in doing thingsNot at all07/13/2025 1:58 PM Raquel Barraza MA Feeling down, depressed, or hopelessNot at all07/13/2025 1:58 PM Raquel Barraza MAPatient Health Questionnaire-2 Nzzew618 1:58 PM Raquel Barraza MA * QuestionAnswerDate of AssessmentAuthorTrouble falling or staying asleep, or sleeping too muchNot at all03/26/2024 9:21 AM Shaikh Wright MDFeeling tired or having little energyNot at all03/26/2024 9:21 AM Shaikh Wright MDPoor appetite or overeatingNot at all03/26/2024 9:21 AM Shaikh Wright MDFeeling bad about yourself - or that you are a failure or have let yourself or your family downSeveral days03/26/2024 9:21 AM Shaikh Wright MDTrouble concentrating on things, such as reading the newspaper or watching television Not at all03/26/2024 9:21 AM Shaikh Wright, ILIAoving or speaking so slowly that other people could have noticed? Or the opposite - being so fidgety or restless that you have been moving around a lot more than usual.Not at all 03/26/2024 9:21 AM Shaikh Wright MDThoughts that you would be better off or hurting yourself in some wayNot at all03/26/2024 9:21 AM Shaikh Wright MDPatient Health Questionnaire-9 Excbx561 9:21 AM Shaikh Wright MD documented as of this encounter Plan of Treatment DateTypeDepartmentCare Team (Latest Contact Info)Mylhlxsngrb91/06/2026 11:00 AM ESTOffice Visit [facility] [address] [facility] [address] [place] [address] Casisus Patel MD 112 [facility] [address] [place] [address] documented as of this encounter Procedures Procedure NamePriorityDate/TimeAssociated DiagnosisCommentsNM MUGA02/18/2024 8:55 AM EDT documented in this encounter Results * NM MUGA (02/18/2024 8:55 AM EDT)Anatomical RegionLateralityModality Radiographic ImagingSpecimen (Source)Anatomical Location / Laterality Collection Method / VolumeCollection TimeReceived Time02/18/2024 8:55 AM EDT Narrative 02/18/2024 8:57 AM EDT [facility] ?[address] ? [place] [address] ?Nuclear Medicine Report ? Signed ? Patient: FEDE HOOD A ? MR#: [id number] ?? : 1935 ?Acct:[id number] ?? Age/Sex: 88 / F ?ADM Date: 02/17/24 ?? Loc: [place] ? Attending Dr: DEVIN KELSEY ? Ordering Physician: DEVIN KELSEY ?? Date of Service: 02/17/24 ?? Procedure(s): NM muga ?? Accession Number(s): [id number] ? cc: Shaikh Edgar Locke; DEVIN KELSEY ? [facility] ? [address] ? [place] [address] ? Patient Name: ?? FEDE HOOD ? MRN: [facility]:[id number] ? date: 1935 ?Sex: F ?? Assigned Patient Location: [place] ?? Current Patient Location: ? Accession/Order Number: [id number] ?? Exam Date: 02/17/2024 ??14:00 ?Report Date: 02/18/2024 ??08:55 ? At the request of: ?? DEVIN ??LAURE ? Procedure: ??NM muga ? NUCLEAR MEDICINE REST GATED CARDIAC STUDY (MUGA) ? HISTORY: Chronic systolic heart failure. Breast cancer. Syncope. ? COMPARISON: None. ? METHOD: Following the injection of 24.2 mCi of Tc-99m-RBC, a routine MUGA ?? study ?? was obtained. Appropriate computer-assisted analysis of the data was ?? performed. ? FINDINGS: There is mild decreased left ventricular contractility. The left ?? ventricular ejection fraction is decreased at 46%. ? NM/NM muga ?? IMPRESSION: ? Decreased LVEF = 46%. ? Electronically authenticated by: SHARLA ??MARCO ANTONIO ?? Date: 02/18/2024 ??08:55 ? Dictated By: ?Sharla Brower M.D. ? Signed By: ?02/18/24 0857 ? DD/ 0855 ? TD/TT: ? Customer Experience Analyst: Procedure Note Radiology, Radiologist, MD - 02/19/2024 [place] [address] Nuclear Medicine Report Signed Patient: FEDE HOOD AMR#: [id number] : 1936Acct:[id number] Age/Sex: 88 / FADM Date: 02/17/24 Loc: [place] Attending Dr: DEVIN KELSEY Ordering Physician: DEVIN KELSEY Date of Service: 02/17/24 Procedure(s): BOBBY bro Accession Number(s): [id number] cc: Shaikh Edgar Locke; DEVIN KELSEY [place] [id number] Patient Name: FEDE HOOD MRN: [id number] date: 1935 Sex: F Assigned Patient Location: [place] Current Patient Location: Accession/Order Number: [id number] Exam Date: 02/17/2024 14:00 Report Date: 02/18/2024 [...] ventricular ejection fraction is decreased at 46%. NM/[place] muga IMPRESSION: Decreased LVEF = 46%. Electronically authenticated by: SHARLA BROWER Date: 02/18/2024 08:55 Dictated By: Sharla Brower M.D. Signed By:02/18/24 0857 DD/ TD/TT: Customer Experience Analyst: Authorizing ProviderResult TypeResult StatusGeneric External Data ProviderIMG XR PROCEDURESFinal Result documented in this encounter Visit Diagnoses Not on filedocumented in this encounter Care Teams Team MemberRelationshipSpecialtyStart DateEnd Date Chuyita Peters MD [address] [place] [address] PCP - Obie MADSEN09/30/2210 Shaikh Locke MD [address] [place] [address] PCP - GeneralInternal Medicine Ray Banda MD PCP - GeneralFamily Medicine05/07/2410 Cassius Patel MD [address] [place] [address] (Fax) PCP - GeneralFamily Nubcqgyv87/17/24 Shaikh Locke MD [address] [place] [address] PCP - [place] Cassius Patel MD [address] [address] (Fax) PCP - [place]05/31/25 Vlad Banuelos LPN Licensed Practical NurseFamily Medicine Suzette Maddox NP Nurse PractitionerFamily Medicine05/07/2410 Adia Pearson, OPENSTACK DEVELOPER [address] [place] [address] Social WorkerFamily Medicine05/26/2410 Adilia Larose, OPENSTACK DEVELOPER [address] [place] [address] Social WorkerFamily Yqouaycj36/17/247 Devin Kelsey MD [address] [place] [phone] (Fax) CardiologistFamily Qcopzpej99/17/24 Saurav Girard MD [address] [place] [address] Eadpfcfbcbncu64/17/24 Suzanna Olmos, RN [address] [place] [address] Registered NurseFamily Jnqlobas71/1/248 Suzanna Olmos, RN [address] [facility] [address] [place] [id number] Registered NurseFamily Abfgaalt04/6/24documented as of this encounter
--- OUTSIDE RECORDS SUMMARY | 2025-08-02 11:43 | XMS_ITS | Clinical Summary ---
Author Organization [employer] tem Address [id number] [address] [place] [address] Care Team Providers Care Game Room Attendant Name Role Phone Suzette Maddox EXPERIMENTAL ASSEMBLER-[employer]ITY WEIGH[employer]STER Primary Care Pr ovider Allergies Active AllergyReactionsCriticalityNoted GkjjRhmjvlngOzhmrlgn60/25/2024 Qsrikqkjymopmf40/25/2024 Medications MedicationSigDispense QuantityRefillsLast FilledStart DateEnd DateStatus HYDROcodone-acetaminophen (NORCO) 5-325 mg per tablet Take 1 tablet by mouth 2 (two) times a day as needed for pain.Active spironolactone (ALDACTONE) 25 mg tablet Take 1 tablet (25 mg total) by mouth in the morning.Active aspirin 81 mg Take 1 tablet (81 mg total) by mouth in the morning.Active atorvastatin (LIPITOR) 40 mg tablet Take 1 tablet (40 mg total) by mouth in the morning.Active carvediloL (COREG) 6.25 mg tablet Take 1 tablet (6.25 mg total) by mouth in the morning and 1 tablet (6.25 mg total) in the evening. Take with meals.Active furosemide (LASIX) 40 mg tablet Take 1 tablet (40 mg total) by mouth 2 (two) times a day.Active empagliflozin (JARDIANCE) 10 mg tablet tablet Take 1 tablet (10 mg total) by mouth in the morning.Active potassium chloride (KLOR-CON) 20 mEq packet Take 1 packet (20 mEq total) by mouth in the morning and 1 packet (20 mEq total) before bedtime.Active lisinopriL (PRINIVIL,ZESTRIL) 2.5 mg tablet Take 1 tablet (2.5 mg total) by mouth in the morning.Active magnesium oxide (MAGOX) 400 mg tablet Take 1 tablet (400 mg total) by mouth in the morning.Active B-complex with vitamin C tablet Take 1 tablet by mouth in the morning.Active calcium carbonate-vitamin D3 (OSCAL 500 + D) 500 mg(1,250mg) -200 units per tablet Take 1 tablet by mouth in the morning and 1 tablet in the evening. Take with meals.Active acetaminophen (TYLENOL ARTHRITIS) 650 mg 8 hr tablet Take 1 tablet (650 mg total) by mouth every 8 (eight) hours as needed for pain. Active Active Problems No known active problems Encounters DateTypeDepartmentCare NmlpOnvvrbuzmjq05/25/2025 2:51 PM EDT - 05/24/2025 11:59 PM EDTHospital Encounter [facility] [address] [place] [address] Screening mammogram, encounter for; H/O left mastectomy Discharge Disposition: Home05/24/2025Travelfrom Last 3 Months Family History Medical HistoryRelationNameCommentsBreast cancerCousin 1Breast cancerCousin 2 Breast cancerCousin 3RelationNameStatusCommentsCousin 1Cousin 2Cousin 3 Social History Tobacco UseTypesPacks/DayYears UsedDateSmoking Tobacco: Never AssessedChildcare AnswerDate NrsgbyehGhwfwaescQdoerfd72/12/2019EmploymentAnswerDate Recorded VgiuywistrTkgbltg73/12/2019Hunger ScreeningAnswerDate RecordedWithin the past 12 months we worried whether our food would run out before we got money to buy more.Never True06/24/2024Within the past 12 months the food we bought just didn't last and we didn't have money to get more.Never True06/24/2024urpose - LifeAnswerDate RecordedPurpose and direction in ykbmFmeodml72/11/2021 CommentsNoSex and Gender InformationValueDate RecordedSex Assigned at BirthNot on fileLegal RysQdhlrr36/06/2015 11:37 AM EDTGender IdentityNot on fileSexual OrientationNot on file Last Filed Vital Signs Vital SignReadingTime TakenCommentsBlood Vlaqsmzb793/5609 2:01 PM EDT Njiez4021 2:01 PM EDTTemperature--Respiratory Rate--Oxygen Umtfjrkkkb53% 06/24/2024 2:01 PM EDTInhaled Oxygen Concentration--Joyzxv51.9 kg (143 lb) 06/24/2024 2:01 PM QVKWyhwar310.6 cm (5' 4 )06/24/2024 2:01 PM EDTBody Mass Index24.55006/24/2024 2:01 PM EDT Plan of Treatment Health MaintenanceDue DateLast DoneCommentsDepression Dyidcedif19/23/1949Tobacco Kcaklugvq18/23/1949Fall Risk Nvkcynnqp94/23/2002COVID-19 Vaccine ( season), 09/06/2023, 08/15/2022, Additional history exists Influenza Lcutawm60/01/047063/02/2024, 07/11/2023, 07/19/2022, Additional history existsDTaP,Tdap and Td Vaccines (2 - Td or Tdap) Zoster (Shingles) FcheyfiOfljkvqug09/24/2019, 12/18/2018RSV ( or age 60+ yrs)Dpindojso12/21/2024 Medical Devices Not on file Procedures Procedure NamePriorityDate/TimeAssociated DiagnosisCommentsMAMM SCREENING UNILAT RT W TRBIfkcldq66/25/2025 3:11 PM EDT Screening mammogram, encounter for H/O left mastectomy from Last 3 Months Results * Mammography screening unilateral right with CAD (05/24/2025 3:11 PM EDT) Anatomical RegionLateralityModalityBreastRightMammographySpecimen (Source) Anatomical Location / LateralityCollection Method / VolumeCollection Time Received Time05/25/2025 10:00 AM EDT Narrative 05/25/2025 10:01 AM EDT FEDE HOOD 1935 [id number] EXAM: MAMM SCREENING UNILAT RT W CAD, [...] 10:01 AM 1 c MAMM 1 YR FDA Accredited Performing Facility: [facility] [address] [id number] Procedure Note Purnima Crews MD - 05/25/2025 FEDE HOOD 1935 [id number] EXAM: MAMM SCREENING UNILAT RT W CAD, [...] 10:01 AM 1 c MAMM 1 YR FDA Accredited Performing Facility: [facility] [address] [facility] [address] Authorizing ProviderResult TypeResult StatusEdandry Patel MDIMVilma MAMMOGRAPHY ORDERABLESFinal Result from Last 3 Months Insurance Care Teams Team MemberRelationshipSpecialtyStart DateEnd Date Suzette Maddox, EXPERIMENTAL ASSEMBLER-[employer] [address] [place] [address] PCP - GeneralNurse Practitioner06/24/24
--- OUTSIDE RECORDS SUMMARY | 2025-08-02 11:43 | XMS_ITS | Encounter Summary ---
Author Organization [facility] Address [address] [place] [address] Care Team Providers Care Powder Mixer Name Role Phone Cassius Patel MD Primary Care Provider Encounter Details DateTypeDepartmentCare Team (Latest Contact Info)Nzardmngraz71/03/2025Travel Social History Tobacco UseTypesPacks/DayYears UsedDateSmoking Tobacco: NeverSmokeless Tobacco: NeverAlcohol UseStandard Drinks/WeekCommentsNot Currently0 (1 standard drink = 0.6 oz pure alcohol)[place] Safety & EnvironmentAnswerDate RecordedFear of Current or Ex-PartnerNot on file11/21/2023Emotionally AbusedNot on file11/21/2023hysically AbusedNot on file11/21/2023Sexually AbusedNot on file11/21/2023hysically or Sexually AbusedNot on file11/21/2023CommentsUnknownSex and Gender InformationValueDate RecordedSex Assigned at VlhotUnrgua90/02/2024 11:11 PM EDT Legal RzvKkamqo01/29/2022 11:05 PM EDTGender XezbggmaJlguej86/02/2024 11:11 PM EDTSexual OrientationChoose not to pgsprzko21/04/2025 9:18 PM EDTdocumented as of this encounter Plan of Treatment DateTypeDepartmentCare Team (Latest Contact Info)Fmkgoslzutn33/10/2025 8:30 AM ESTHospital Encounter [facility] [address] [place] [phone] Cam Terrell MD [address] [place] [address] Chronic systolic heart failure (CMS/HCC)08/09/2025 8:30 AM EST - 08/09/2025 10:30 AM ESTSurgery [facility] Heart [facility] [address] [place] [address] Cam Terrell MD [address] [place] [address] Biventricular pacemaker upgradedocumented as of this encounter Visit Diagnoses Not on filedocumented in this encounter Care Teams Team MemberRelationshipSpecialtyStart DateEnd Date Cassius Patel MD [address] [place] [address] PCP - Sozxutm16/26/24documented as of this encounter
--- OUTSIDE RECORDS SUMMARY | 2025-08-02 11:44 | XMS_ITS | Clinical Summary ---
Author Organization [facility] Address [address] [place] [address] Care Team Providers Care Circulation Supervisor Name Role Phone Cassius Patel MD Primary Care Provider [phone] Allergies Active AllergyReactionsCriticalityNoted ByzoUjuhccrzDdgywlatRpiny09/19/2014 Nitrofurantoin Monohyd/M-RmiefSehct29/19/2014 Medications MedicationSigDispense QuantityRefillsLast FilledStart DateEnd DateStatus cholecalciferol (Vitamin D-3) 25 MCG (1000 UT) tablet Take 1 tablet every other day by oral route.Active calcium carb,cit-mag cit,ox-D3 300 mg-150 mg- 400 unit tablet as directed OrallyActive furosemide (Lasix) 40 mg tablet Indications:Heart failure with mildly reduced ejection fraction (CMS/HCC)Take 1 tablet (40 mg) by mouth every other day. 45 tablet 4Active Additional Information Patient taking differently: 20 mgoralDaily, Reported on 07/06/2025 HYDROcodone-acetaminophen (Holley) 5-325 mg tablet Take 1 tablet by mouth every 4 (four) hours if needed.Active Jardiance 10 mg Indications:Chronic systolic congestive heart failure (CMS/HCC)TAKE ONE TABLET BY MOUTH EVERY DAY DIRECTED 90 tablet 5Active lisinopril 2.5 mg tablet Indications:Essential hypertensionTake 1 tablet (2.5 mg) by mouth once daily as directed. 90 tablet ctive ezetimibe (Zetia) 10 mg tablet Indications:Coronary artery disease involving cowlitz coronary artery of cowlitz heart without angina pectorisTake 1 tablet (10 mg) by mouth in the morning. 90 tablet /6Active carvedilol (Coreg) 3.125 mg tablet Indications:Essential hypertensionTake 1 tablet (3.125 mg) by mouth with breakfast and with evening meal. 180 tablet /ctive acetaminophen (Tylenol) 325 mg capsule Take 325 mg by mouth every 6 (six) hours if needed.Active aspirin 81 mg EC tablet Take 81 mg by mouth in the morning.Active potassium chloride (Klor-Con) 20 mEq packet Take 20 mEq by mouth if needed.Active spironolactone (Aldactone) 25 mg tablet Indications:Edema, unspecified typeTAKE ONE-HALF TABLET BY MOUTH ONCE DAILY DIRECTED. 45 tablet 5Active Additional Information Patient taking differently: 12.5 mg oral Daily, Reported on 07/06/2025 atorvastatin (Lipitor) 40 mg tablet Indications:Coronary artery disease due to lipid rich plaqueTAKE 1 TABLET BY MOUTH AT BEDTIME 90 tablet 5Active sennosides-docusate sodium (Genet-Colace) 8.6-50 mg tablet Take 1 tablet by mouth in the morning.6Active apixaban (Eliquis) 2.5 mg tablet Indications:Paroxysmal atrial fibrillation (CMS/HCC)Take 1 tablet (2.5 mg) by mouth two times daily. 60 tablet 1115Active apixaban (Eliquis) 2.5 mg tablet Indications:Paroxysmal atrial fibrillation (CMS/HCC)Take 1 tablet (2.5 mg) by mouth two times daily. 180 tablet Discontinued Active Problems ProblemNoted DateDiagnosed DateParoxysmal atrial iwdvtzmsckvl17/06/2025 Overview (07/06/2025): PAROXYSMAL ATRIAL FIBRILLATION ,Rendering provider NPI :[id number] Chronic xryyuognlkjv58/22/2025ontrolled substance agreement smftgg6907/28/2024 History of breast wprqle7207/28/2024 Overview (09/14/2024): Left Mastectomy 2002 Mobitz type 2 second degree heart block07/16/2024ostural kyphosis of cervicothoracic lorjjy1907/16/2024Other chest pain06/11/2024Fall03/26/2024 Overview (06/08/2024): Last Assessment & Plan: Recent fall, she tripped over something. Otherwise, stable gait and no unsteadiness. No need for cane/walker. Routine general medical examination at health care xtwgkesp09/22/2023 Overview (03/20/2023): Last Assessment & Plan: Labs, vaccinations and safety reviewed. Stage 3b chronic kidney zkdxymo0002/11/2023 Overview (03/20/2023): Last Assessment & Plan: Gfr has been stable will cont to monitor Lumbosacral spondylosis without zfobgoejuk98/15/2023 Overview (03/20/2023): Last Assessment & Plan: Currently stable Diabetic renal bspmhoe0302/11/2023 Overview (03/20/2023): Last Assessment & Plan: Most recent hga1c 6.2 given advanced a ge will cont to manage conservatively., and check A1c q 12 months Cont with healthy diet Cardiac LV ejection fraction of 20-34%02/11/2023 Overview (03/20/2023): Last Assessment & Plan: Per cardiology Essential qytzqsrrfgsq59/15/2023 Overview (03/13/2024): Last Assessment & Plan: Stable. On GDMT for HFrEF. BP is stable. Denies orthostasis. Hptvhtnua81/24/2022Generalized ischemic myocardial rpdshwaptjl57/24/2022 Sbbbadwlfkomwx75/24/2022Low blood qupszpmd90/24/2022bnormal results of cardiovascular function jlyquev3506/20/2021Other chronic pain08/16/2020Ventricular qlksuhdyqsx28/25/2019 Overview (03/20/2023): Last Assessment & Plan: Per cardiology Chronic systolic heart ipiqwxl2812/22/2018 Overview (03/20/2023): Last Assessment & Plan: Per cardiology Decreased estrogen level12/18/2018Primary malignant neoplasm of gnupwg0611/30/2015 Type 2 diabetes mellitus without okyfwifdpxoo28/05/2016Congestive heart failure 04/30/2013Coronary ttabtzglzbarwft66/01/2013Heart block04/30/2013Nonrheumatic tricuspid valve riuvpjdi66/01/2013Primary uwsmqvjuqialyc06/01/2013 Overview (08/25/2024): ISCHEMIC CARDIOMYOPATHY Cardiac pacemaker in situ04/28/2013 Encounters DateTypeDepartmentCare IbklTddtistgohz23/03/4583Aezwgf07/17/2025Refill [facility] [address] [place] [address] Cam Terrell MD Paroxysmal atrial fibrillation (CMS/HCC)07/06/2025 2:15 PM EDTOffice Visit [facility] [address] [place] [address] Cam Terrell MD Cardiac pacemaker in situ (Primary Dx)07/06/2025 2:00 PM EDTAncillary Procedure [facility] [address] [place] [address] Encounter for implantable defibrillator reprogramming or check07/06/2025Orders Only [facility] [address] [place] [facility] [place] [address] Quin Campos MA Chronic systolic heart failure (CMS/HCC) (Primary Dx)07/06/2025Orders Only [facility] [address] [place] [address] Quin Campos MA Encounter for pre-operative examination (Primary Dx)05/11/2025 9:30 AM EDT Ancillary Procedure [facility] [address] [place] [address] Encounter for implantable defibrillator reprogramming or checkfrom Last 3 Months Immunizations ImmunizationAdministration DatesNext DueInfluenza, High Dose Seasonal, Preservative Free07/05/2017,07/10/2016,10/04/2015,06/26/2013Influenza, High-dose Seasonal, Quadrivalent, Preservative Free07/19/2022,08/04/2021,07/05/2017 Influenza, Seasonal, Quadrivalent, Biqipklvvu79/05/2021,06/27/2020Influenza, injectable, quadrivalent, preservative free06/23/2018Influenza, seasonal, injectable, preservative free, 6 moonths & older06/28/2020Influenza, seasonal,quadrivalent, preservative free06/30/2014Influenza, trivalent, beavctxchw64/24/2019Moderna 12 YR UP Vaccine BiValent Ipjmtyd4308/15/2022Moderna SARS-CoV-2 Wjewxkatfyq41/27/2021,11/29/2020,1Pneumococcal Conjugate PCV 1303,04/21/2015Pneumococcal Polysaccharide CDJ630305/26/2013Unspecified Sars-Cov-2 Uegscxlmrvr45/13/2022Zoster, Ynuvgupoiqn33/24/2019,12/18/2018 Family History Medical HistoryRelationNameCommentsCoronary artery diseaseOtherRelationName StatusCommentsFatherDeceasedMotherDeceasedOther Social History Tobacco UseTypesPacks/DayYears UsedDateSmoking Tobacco: NeverSmokeless Tobacco: Never Tobacco Cessation:Counseling Given: Not Answered Alcohol UseStandard Drinks/WeekCommentsNot Currently0 (1 standard drink = 0.6 oz pure alcohol)[place] Safety & EnvironmentAnswerDate RecordedFear of Current or Ex-PartnerNot on file11/21/2023Emotionally AbusedNot on file11/21/2023hysically AbusedNot on file11/21/2023Sexually AbusedNot on file11/21/2023hysically or Sexually AbusedNot on file11/21/2023CommentsUnknownSex and Gender InformationValueDate RecordedSex Assigned at XtmbwKtsadd94/02/2024 11:11 PM EDT Legal ChaRxoezf21/29/2022 11:05 PM EDTGender DrxcqqdiNskkow94/02/2024 11:11 PM EDTSexual OrientationChoose not to /04/2025 9:18 PM EDT Last Filed Vital Signs Vital SignReadingTime TakenCommentsBlood Qvfrfruq590/4607/06/2025 2:17 PM EDT Auete825007/06/2025 2:17 PM EDTTemperature--Respiratory Jrpj379010/02/2022 11:27 AM EDTOxygen Ccioiastib81%07/06/2025 2:17 PM EDTInhaled Oxygen Concentration-- Mocjin62.9 kg (143 lb 1.3 oz)08/02/2025 10:00 AM PXJModask345 cm (5' 3 ) 07/06/2025 2:17 PM EDTBody Mass Index25.351 2:17 PM EDT Plan of Treatment DateTypeDepartmentCare Team (Latest Contact Info)Hykztpyrhbn88/10/2025 8:30 AM ESTHospital Encounter [facility] [address] [place] [phone] Cam Terrell MD [address] [place] [address] Chronic systolic heart failure (CMS/HCC)08/09/2025 8:30 AM EST - 08/09/2025 10:30 AM ESTSurgery [facility] [address] [place] [address] Cam Terrell MD [address] [facility] [place] [address] Biventricular pacemaker upgradeHealth MaintenanceDue DateLast DoneComments Medicare Annual Wellness (AWV)1935Diabetes: Retinopathy Screening 1946Depression Usuvoariq24/23/1949Fall Risk Sgcdbwqsf25/23/2002COVID-19 Vaccine ( season), 09/06/2023, 08/15/2022, Additional history existsDiabetes: Hemoglobin A1C5004/06/2025, 01/13/2025, 03/26/2024, Additional history existsAdult Mjfmipi0501/07/2034 01/08/2024Zoster LqmyucntWmzkmtxwi43/24/2019, 12/18/2018Pneumococcal Vaccine: 50+ VormeFcyrzjohx16/26/2021, 04/21/2015, 05/26/2013Influenza VaccineCompleted 07/06/2025, 08/05/2024, 07/11/2023, Additional history existsHIB VaccinesAged OutNo longer eligible based on patient's age to complete this topicHPV Vaccines Aged OutNo longer eligible based on patient's age to complete this topicIPV VaccinesAged OutNo longer eligible based on patient's age to complete this topic Meningococcal B VaccineAged OutNo longer eligible based on patient's age to complete this topicMeningococcal VaccineAged OutNo longer eligible based on patient's age to complete this topicRotavirus VaccinesAged OutNo longer eligible based on patient's age to complete this topic Procedures Procedure NamePriorityDate/TimeAssociated DiagnosisCommentsCARDIAC DEVICE CHECK - IN CLINIC - PACEMAKER DUAL CHAMBER W/ TSZIAzknfvv14/07/2025 4:23 PM EDT Encounter for implantable defibrillator reprogramming or check CARDIAC DEVICE CHECK - IN CLINIC - PACEMAKER DUAL CHAMBER W/ PROGRoutine 05/12/2025 10:29 AM EDT Encounter for implantable defibrillator reprogramming or check CARDIAC DEVICE CHECK CHECK - EQAEHQCsdhvsa75/04/2025 6:00 PM EDT Adjustment and management of cardiac pacemaker from Last 3 Months Results * CARDIAC DEVICE CHECK - IN CLINIC - PACEMAKER DUAL CHAMBER W/ PROG (07/06/2025 4:23 PM EDT) Only the most recent of2 resultswithin the time period is included. ComponentValueRef RangeTest MethodAnalysis TimePerformed AtPathologist Signature BSA1.7m2GE PACS CARDIOAnatomical RegionLateralityModalityOtherSpecimen (Source) Anatomical Location / LateralityCollection Method / VolumeCollection Time Received Time Narrative 07/12/2025 9:46 AM EDT Normal device function Authorizing ProviderResult TypeResult StatusPaul Xander MDCV IMPLANTABLE CARDIAC DEVICE PROCEDURESFinal Result * CARDIAC DEVICE CHECK - REMOTE - PACEMAKER (05/03/2025 6:00 PM EDT)Specimen (Source)Anatomical Location / LateralityCollection Method / VolumeCollection TimeReceived Time Narrative Authorizing ProviderResult TypeResult StatusBlair Lynda MDCV IMPLANTABLE CARDIAC DEVICE PROCEDURESFinal ResultPerforming OrganizationAddressCity/State/ZIP Code Phone Number CPACS from Last 3 Months Insurance Care Teams Team MemberRelationshipSpecialtyStart DateEnd Cassius Patel MD [address] [place] [address] PCP - Qviyund47/26/24
--- OUTSIDE RECORDS SUMMARY | 2025-08-02 11:44 | XMS_ITS | Encounter Summary ---
Author Organization [facility] Address [address] [place] [address] Care Team Providers Care Italian Lecturer Name Role Phone Thuan Adilia HECKW Unavailable [phone] Cassius Hendrix MD Primary Care Provider [phone] Devin Kelsey MD Unavailable [phone] Saurav Girard MD Unavailable [phone] Suzanna Olmos RN Unavailable [phone] Suzanna Olmos RN Unavailable [phone] Shaikh NANETTE Locke Unavailable [phone] Cassius Hendrix MD Unavailable [phone] Encounter Details DateTypeDepartmentCare Team (Latest Contact Info)Gvgmgioqzbz55/13/2024Clinisync Result Encounter [facility] Department Unsolicited Provider, Generic External Data Social History Tobacco UseTypesPacks/DayYears UsedDateSmoking Tobacco: NeverPassive Smoke Exposure: NeverSmokeless Tobacco: NeverAlcohol UseStandard Drinks/WeekComments Never0 (1 standard drink = 0.6 oz pure alcohol)[id number] Health Literacy AnswerDate RecordedHow often do you need to have someone help you when you read instructions, pamphlets, or other written material from your doctor or pharmacy? Ckkwrbduf63/17/2024Humiliation, Afraid, Rape, and Kick questionnaireAnswerDate RecordedWithin the [...] with Friends and FamilyNot on file04/01/2025 Attends Caodaism ServicesNot on file04/01/2025tive Member of Clubs or OrganizationsNot on file04/01/2025ttends Club or Organization MeetingsNot on file04/01/2025re you , , , , never , or living with a partner?Hoyifdk6904/01/2025UDIT-CAnswerDate RecordedQ1: How often do you have a [...] hard at all06/16/2024HQ-2AnswerDate Recorded Patient Health Questionnaire-2 Ryent248Finintermountain healthcare [place] [facility] - Occupational Stress QuestionnaireAnswerDate [...] steady place to sleep or slept in [facility] (including now)?No 02/18/2023Housing Stability Vital SignAnswerDate RecordedIn the last 12 months, was there a time when you were not able to pay the mortgage or rent on time?No 06/16/2024Number of Times Moved in the Last YearNot on file06/16/2024t any time in the past 12 months, were you homeless or living in a snf (including now)? No06/16/2024CommentsNoSex and Gender InformationValueDate RecordedSex Assigned at BirthNot on fileLegal TzzRizszi70/15/2023 6:48 PM EDTGender Identity Not on fileSexual OrientationNot on filedocumented as of this encounter Functional Status * Over the past 2 weeks, how often have you been bothered by any of the following problems?QuestionAnswerDate of AssessmentAuthorLittle interest or pleasure in doing thingsNot at all07/13/2025 1:58 PM EDTYeakleRaquel MA Feeling down, depressed, or hopelessNot at all07/13/2025 1:58 PM IshaRaquel gonzalez MAPatient Health Questionnaire-2 Dzwaq535 1:58 PM MadiRaquel MA documented as of this encounter Plan of Treatment DateTypeDepartmentCare Team (Latest Contact Info)Ozqfgugfpeh99/06/2026 11:00 AM ESTOffice Visit [facility] [address] [place] [address] Cassius Hendrix MD [address] [place] [address] documented as of this encounter Procedures Procedure NamePriorityDate/TimeAssociated DiagnosisCommentsCA ECHO DOPPLER MLAURXOD23/13/2024 6:11 PM EST documented in this encounter Results * CA ECHO DOPPLER COMPLETE (09/11/2024 6:11 PM EST)Anatomical RegionLaterality ModalityOtherSpecimen (Source)Anatomical Location / LateralityCollection Method / VolumeCollection TimeReceived Time09/11/2024 6:11 PM EST Narrative 09/11/2024 6:12 PM EST [facility] ?[address] ? [place] [address] ? Cardiology Report ? Signed ? Patient: FEDE HOOD ? MR#: [id number] ?? : 1935 ?Acct:[id number] ?? Age/Sex: 88 / F ?ADM Date: 09/11/24 ?? Loc: CARD ? Attending Dr: Cam Terrell M.D. ? Ordering Physician: Cam Terrell M.D. ?? Date of Service: 09/11/24 ?? Procedure(s): CA echo doppler complete ?? Accession Number(s): [id number] ? cc: Cam Terrell M.D.; CASSIUS HENDRIX ? Patient Name: ? FEDE HOOD ? MR#: [id number] ? : 1935 ? Exam Date: 09/11/2024 ?? Ordering Doctor: CAM TERRELL ? ECHOCARDIOGRAM REPORT ? PROCEDURE: ? CA ECHO DOPPLER COMPLETE ? INDICATIONS: ? Atrial fibrillation/flutter ? COMPARISON: ? None. ? DESCRIPTION: ? COMPLETE ECHOCARDIOGRAM Real-time transthoracic ?? echocardiography with 2D, M-mode, spectral and color flow Doppler performed. ? QUALITY: ? Technical quality was good. ? LEFT VENTRICLE: ? Normal chamber size. Borderline left ventricular ?? hypertrophy. Global left ventricular systolic function is mildly to moderately ?? decreased. ??Abnormal septal motion likely due to pacing. ? LV EF: ? Visual estimation of left ventricular ejection fraction is 40-45%. ?? DIASTOLIC: ? Not adequately assessed due to heart rhythm. ?? ATRIAL SEPTUM: ? LEFT ATRIUM: ? Moderate dilatation. ?? RIGHT ATRIUM: ? Moderate dilatation. ?? RIGHT VENTRICLE: ? Normal chamber size. Normal right ventricular systolic ?? function. ?Pacer wire present. ?? TRICUSPID VALVE: Normal mobility and thickness. No stenosis with mild to ?? moderate regurgitation. Moderate pulmonary hypertension. RVSP 52 mmHg ? MITRAL VALVE: ? Normal mobility and thickness. ?? No evidence of mitral valve ?? stenosis. ??Mild mitral annular calcification. Mild to moderate mitral ?? regurgitation. ? AORTIC VALVE: ? Normal trileaflet appearance. Mildly calcified aortic valve. ?? Mildly diminished mobility. ??Doppler velocity suggest mild aortic valve ?? stenosis. DVI 0.5, GALINA 1.7cm2. Mild aortic regurgitation. ? AORTIC ROOT: ? Normal diameter and appearance. ??Normal size ascending aorta ?? measuring 3.5 cm and aortic arch measuring 3.4cm. ? PULMONIC VALVE: Normal thickness and mobility. No stenosis. Trivial ?? regurgitation. ? PERICARDIUM: ? No evidence of pericardial effusion. ? IVC: ? Mild dilatation. measuring 2.4 cm with no collapse. ? PLEURA: ? CONCLUSION: ? 1. Normal left ventricular size with mildly to moderately reduced systolic ?? function. ??LVEF is estimated at 40-45%. ?? 2. Normal right ventricular size and systolic function. ?? 3. Moderate biatrial dilatation. ?? 4. Mild to moderate mitral and tricuspid regurgitation. ?? 5. Mild aortic valve stenosis and regurgitation. ?? 6. Moderately elevated right-sided pressures. ??RVSP is 52 mmHg. ? Adult Echocardiography Procedure Report ?? Left Ventricle ?? LVEDD (3.7 - 5.6 cm): ? 4.66 cm ?? LVESD (2.2 - 4.0 cm): ? 3.86 cm ?? LVIVS thickness (0.6 - 1.2 cm): ? 0.98 cm ?? LVPW thickness (0.5 - 1.0 cm): ? 0.90 cm ?? e': ? 0.06 m/s ?? E - e': ? 15.95 ?? LVOT Max Gradient: ? 2.09 mm[Hg], 1.97 mm[Hg] ?? LVOT Area (cm2): ? 0.71 m/s ?? Peak Velocity (LVOT): ? 0.72 m/s, 0.70 m/s ?? Mean Velocity (LVOT): ? 0.51 m/s ?? LVOT Diameter ? 2.19 cm ?? Left Ventricular Ejection Fraction: ? 40-45 % ?? Left Atrium ?? LA Volume Index (2D A2C): ? 32.47 ml/m2 ?? Left Atrium Systolic Dimension: ? 3.82 cm ?? Mitral Valve ?? MV E to A Ratio: ? 1.45 ?? Mitral Valve A-Wave Peak Velocity: ? 0.68 m/s ?? Mitral Valve E-Wave Peak Velocity: ? 0.98 m/s ?? Right Ventricle ?? RV Internal Diastolic Dimension: ? 2.68 cm ?? Aorta ?? AO Root Diam: ? 2.90 cm ?? Ascending Ao Diam: ? 3.49 cm ?? Aortic Valve ?? AoV Area (Peak Erasmo): ? 1.79 cm2, 1.81 cm2 ?? AoV Area (VTI): ? 1.62 cm2, 1.67 cm2 ?? Deceleration Dyer: ? 1.88 m/s2 ?? Pressure Half-Time: ? 516.16 ms ?? Peak Velocity(Antegrade Flow): ? 1.50 m/s ?? Peak Gradient(Antegrade Flow): ? 8.95 mm[Hg] ?? Mean Velocity(Antegrade Flow): ? 1.25 m/s ?? Mean Gradient(Antegrade Flow): ? 6.47 mm[Hg] ?? Velocity Time Integral: ? 33.90 cm ?? Tricuspid Valve ?? Peak Velocity (Regurgitant Flow): ? 2.51 m/s, 2.57 m/s, 3.06 m/s ?? Pulmonic Valve ?? Mean Gradient: ? 1.43 mm[Hg], 2.00 mm[Hg] ?? Mean Velocity: ? 0.56 m/s, 0.69 m/s ?? Peak Velocity: ? 0.84 m/s, 0.85 m/s ?? Peak Gradient: ? 2.60 mm[Hg], 3.09 mm[Hg], 2.87 mm[Hg] ?? Right Atrium ?? Right Atrium Systolic Pressure: ? 41.84 ml, 41.84 ml ? Dictated by: Devin Kelsey M.D. on 09/11/2024 at 18:05 ? Approved by: Devin Kelsey M.D. on 09/11/2024 at 18:10 ? Dictated By: ?DEVIN KELSEY ? Signed By: ?09/11/24 1812 ? DD/ 10 ? TD/TT: ? Steelworker: Procedure Note Radiology, Radiologist, MD - 09/11/2024 [place] [address] Cardiology Report Signed Patient: FEDE HOOD [facility]#: [id number] : 7Acct:[id number] Age/Sex: 88 / FADM Date: 09/11/24 Loc: CARD Attending Dr: Cam Terrell M.D. Ordering Physician: Cam Terrell M.D. Date of Service: 09/11/24 Procedure(s): CA echo doppler complete Accession Number(s): [id number] cc: Cam Terrell M.D.; CASSIUS HENDRIX Patient Name: FEDE HOOD MR#: [id number] : 1935 Exam Date: 09/11/2024 Ordering Doctor: [...] Area (VTI): 1.62 cm2, 1.67 cm2 Deceleration Dyer: 1.88 m/s2 Pressure Half-Time: 516.16 ms Peak [...] DEVIN KELSEY Signed By:09/11/241811 DD/ 10 TD/TT: Steelworker: Authorizing ProviderResult TypeResult StatusGeneric External Data Provider CLINISYNC IMAGINGFinal Result documented in this encounter Visit Diagnoses Not on filedocumented in this encounter Additional Health Concerns AssessmentNoted TimePHQ-9 Depression Total Score: 9:21 AM EDT documented as of this encounter Care Teams Team MemberRelationshipSpecialtyStart DateEnd Date Cassius Hendrix MD [address] [address] (Fax) PCP - GeneralFamily Vxfckgoa63/17/24 Shaikh Locke MD [address] [place] [address] PCP - Obie MADSEN Cassius Hendrix MD [address] [address] (Fax) PCP - Obie MADSEN05/31/25 Adilia Larose LSW [address] [address] Social WorkerFamily Jspdiffl08/17/247 Devin Kelsey MD [address] [place] [phone] CardiologistFamily Ajscfysx70/17/24 Saurav Girard MD [address] [place] [address] Rxlkqofxmheob48/17/24 Suzanna Olmos, ISABELLE [address] [place] [address] Registered NurseFamily Ktzoclen33/1/248/02/21 Suzanna Olmos RN [address] [place] [address] Registered NurseFamily Dssrbbfd80/6/24documented as of this encounter
--- OUTSIDE RECORDS SUMMARY | 2025-08-02 11:44 | XMS_ITS | Clinical Summary ---
Author Organization [facility] Address [address] [place] [address], [address] [place] [address] Care Team Providers Care Aerospace Manager Name Role Phone Unavailable Primary Care Provider Unavailabl e Social History Tobacco UseTypesPacks/DayYears UsedDateSmoking Tobacco: Never Assessed CommentsUnknownSex and Gender InformationValueDate RecordedSex Assigned at Not on fileLegal RzyGcemgs47/12/2013 5:19 PM EDTGender IdentityNot on fileSexual OrientationNot on file Plan of Treatment Not on file
--- OUTSIDE RECORDS SUMMARY | 2025-08-02 12:03 | XMS_ITS | CCD ---
Author Organization [facility] Care Team Providers Care Event Producer Name Role Phone PHYSICIAN, DEFAULT Unavailable Unavailable [...] Ray Banda MD Primary Care Provider Varsha EARLY CHILDHOOD EDUCATION WORKER, Jose Unavailable Lili MAILROOM ASSISTANT, Adia Unavailable [phone] Thuan [facility], Adilia Unavailable Cassius Hendrix MD Primary Care Provider Kelsey FITZPATRICK, Devin Unavailable Era FITZPATRICK, Saurav Mosqueda Unavailable Lili MAILROOM ASSISTANT, Adia Unavailable Nickolas WALTON, Suzanna Unavailable Nickolas WALTON, Suzanna Unavailable Cassius Hendrix MD Primary Care Provider Mary Stroud Attending Unavailable Mary Stroud Admitting Unavailable Chucky FITZPATRICK, Primary Care Provider [phone] Chucky FITZPATRICK, Unavailable Devin Cole MD Unavailable Nickolas WALTON, Suzanna Unavailable Nickolas WALTON, Suzanna Unavailable Thuan FLORES, Adilia [...] Devin Unavailable Era FITZPATRICK, Saurav Mosqueda Unavailable [phone] Chucky FITZPATRICK, Unavailable CASSIUS HENDRIX Attending Unavailable CASSIUS HENDRIX Attending Unavailable CASSIUS HENDRIX Attending Unavailable CASSIUS HENDRIX Attending Unavailable CASSIUS HENDRIX Attending Unavailable CASSIUS HENDRIX Attending Unavailable MARIELA SHIN Attending Unavailable Thuan FLORES, Adilia Unavailable Nickolas WALTON, Suzanna Unavailable Chuyita Peters MD Unavailable Shaikh Locke MD Primary Care Provider Vin LAURA, Vlad Unavailable Unavailable Veronika FITZPATRICK, Ray Primary Care Provider Varsha EARLY CHILDHOOD EDUCATION WORKER, Jose Unavailable Lili HECKW, Adia Unavailable [phone] Jorge FITZPATRICK, Cassius Willis Unavailable Allergies Allergy ClassificationReported Allergen(s)Allergy TypeDate of OnsetReaction(s) Facility (2 sources)cefdinir; Translations: [OMNICEF]Drug Ukttxyz61-35-9282Zcf [facility] Repository (2 sources)NitrofurantoinDrug Dsxbqlu20-51-3154Jmt [facility] Repository (20 sources)cefdinir; Translations: [CEFDINIR]Drug Neslpcy53-66-7162EbkstKKVV [facility] Work Phone: (20 sources)Nitrofurantoin; Translations: [NITROFURANTOIN]Drug Mnpkxsq64-21-9458 [facility] (1 source)NitrofurantoinDrug Bzmljvu11-22-3219BsomwxgddMer[facility] (1 source)NITROFURANTOIN MONOHYD/M-CRYST; Translations: [NITROFURANTOIN MONOHYD/M-CRYST]Propensity to adverse reactions to drug (disorder)09-17-2014 [facility] Repository Medications Current Medications MedicationDrug Class(es)DatesSig (Normalized)Sig (Original)acetaminophen 325 mg / HYDROcodone bitartrate 5 mg oral tablet (20 sources)Opioid AgonistStart: 10-28-2024 End: 57-13-7359ftuh 1 tablet by mouth once daily as needed for painHYDROcodone- acetaminophen (Uledi) 5-325 MG tablet Indications: Chronic pain syndrome Take 1 tablet by mouth Daily as needed for severe pain or moderate pain 30 tablet 07/13/2025 08/12/2025 ActiveStart: 10-08-2024 End: 79-05-6010bogo 1 tablet by mouth twice daily as needed for painHYDROcodone- acetaminophen (Uledi) 5-325 MG tablet Indications: Chronic pain syndrome Take 1 tablet by mouth 2 (two) times a day as needed for moderate pain for up to 14 days 28 tablet 10/08/2024 10/28/2024 Discontinued (Reorder)Start: 07-28-2024 End: 28-70-0720jjvj 1 tablet by mouth twice daily as needed for painHYDROcodone- acetaminophen (Uledi) 5-325 MG tablet Indications: Chronic pain syndrome Take 1 tablet by mouth 2 (two) times a day as needed for moderate pain 60 tablet 07/28/2024 08/27/2024 ActiveStart: 06-18-2024 End: 86-35-5839wjlb 1 tablet by mouth onceHYDROcodone-acetaminophen (Uledi) 5- 325 MG tablet Indications: Lumbosacral spondylosis without myelopathy Take 1 tablet by mouth every 12 (twelve) hours if needed for severe pain 60 tablet End: 61-53-5429zmnt 1 tablet by mouth once dailyHYDROcodone-acetaminophen (Uledi) 5-325 MG tablet Take 1 tablet by mouth Daily 07/28/2024 Discontinued (Reorder)apixaban 2.5 mg oral tablet (20 sources)Factor Xa Inhibitortake 1 tablet by mouth in the morningEliquis 2.5 MG tablet Take 2.5 mg by mouth in the morning and 2.5 mg before bedtime. Active atorvastatin 40 mg oral tablet (20 sources)HMG-CoA Reductase Inhibitoratorvastatin (Lipitor) 40 MG tablet ActiveBlood Glucose Monitoring Suppl (TheMarkets) w/Device kit (18 sources)Start: 24-09-4807Vvuxw Glucose Monitoring Suppl ([employer]) w/Device kit Indications: Type 2 diabetes mellitus with stage 3b chronic kidney disease, without long-term current use of insulin (HCC) Check BS bid prn 1 kit 10/28/2024 ActiveStart: 73-45-9208Odgpc Glucose Monitoring Suppl ([employer]) w/Device kit Indications: Type 2 diabetes mellitus with stage 3b chronic kidney disease, without long-term current use of insulin (HCC) ([facility]/HCC) CheckBS bid prn 1 kit 10/28/2024 Activecarvedilol 3.125 mg oral tablet (20 sources)alpha-Adrenergic [place], beta-Adrenergic BlockerStart: 03-26-2024 End: 62-90-7328bjtc 1 tablet by mouth in the morningcarvedilol [...] Active docusate sodium 50 mg / sennosides, fci 8.6 mg oral tablet (6 sources)Start: 04-13-2025 End: 49-84-3563ynmr 8.6-50 mg by mouth once dailysenna-docusate (Senexon-S) 8.6- 50 MG tablet Indications: Chronic constipation Take 1 tablet by mouth Daily 90 tablet 3 04/13/2025 04/13/2026 Activeempagliflozin 10 mg oral tablet (20 sources)Sodium-Glucose Cotransporter 2 InhibitorStart: 05-03-2025 End: 39-72-9824htgu 1 tablet by mouth once dailyempagliflozin (Jardiance) 10 MG Indications: Type 2 diabetes mellitus with stage 3b chronic kidney disease, without long-term current use of insulin (HCC) Take 1 tablet (10 mg) by mouth Daily 90 tablet 1 07/13/2025 01/09/2026 ActiveStart: 10-28-2024 End: 83-40-2008ibts 1 tablet by mouth once dailyempagliflozin (Jardiance) 10 MG Indications: Type 2 diabetes mellitus with stage 3b chronic kidney disease, without long-term current use of insulin (HCC) Take 1 tablet (10 mg) by mouth Daily 90 tablet 01/19/2025 04/19/2025 Activeezetimibe 10 mg oral tablet (20 sources)Dietary Cholesterol Absorption InhibitorStart: 03-13-2024 End: 82-72-4728ctbx 1 tablet by mouth in the morningezetimibe (Zetia) 10 MG tablet Take 10 mg by mouth in the morning. 03/13/2024 Activefurosemide 20 mg oral tablet (20 sources)Loop Diureticfurosemide (Lasix) 20 MG tablet Take 20 mg by mouth if needed Active End: 67-46-4188lmblmfdpxm (Lasix) 40 MG tablet 1 (one) time [...] 20 mEq by mouth Daily Active End: 99-59-8007lwlksjkuf chloride CR (KLOR-CON) 20 MEQ ER tablet 1 (one) time each day at the same time. 07/16/2024 Discontinued (Therapy completed) spironolactone 25 mg oral tablet (20 sources)Aldosterone AntagonistStart: 62-56-0792uplv 0.5 tablet by mouth once dailyspironolactone (Aldactone) 25 MG tablet Take 0.5 tablets by mouth 1 (one) time each day. 08/27/2018Active Completed/Discontinued Medications MedicationDrug Class(es)DatesSig (Normalized)Sig (Original)acetaminophen 500 mg oral tablet (20 sources)Start: 11-06-2018 End: 66-81-1650lxbg 1 tablet by mouth every eight hours [...] sources)Platelet Aggregation Inhibitor, Nonsteroidal Anti-inflammatory Drug End: 19-54-9331jzno 1 tablet by mouth in the morningaspirin 81 MG EC tablet Take 81 mg by mouth in the morning. 07/13/2025 Discontinued (Med list cleanup) bisacodyl 5 mg delayed release oral tablet (12 sources)Stimulant Laxative End: 47-63-3212foin 5 mg by mouth once dailyBisacodyl (LAXATIVE PO) Take 5 mg by mouth Daily OTC 04/13/2025 Discontinued (Therapy completed)Calcium (20 sources)Phosphate Binder, Calcium End: 34-73-8608gqzjoys 150 MG tablet as directed Orally 11/03/2024 Discontinued (Therapy completed)calcium 150 MG tablet as directed Orally ActiveFluad Quadrivalent syringe (10 sources)Start: 07-11-2023 End: 03-48-1478Rolgq Quadrivalent syringe Inject 0.5 mL into the shoulder, thigh, or buttocks 1 (one) time 07/11/2023 07/16/2024 Discontinued (Therapy completed)Start: 86-57-9400Zbmgz Quadrivalent syringe Inject 0.5 mL into the shoulder, thigh, or buttocks 1 (one) time 07/11/2023 Activemagnesium gluconate 550 mg oral tablet (10 sources) End: 10-80-7913uwem 1 tablet by mouth in the morningmagnesium 30 MG tablet Take 1 tablet by mouth in the morning. 07/16/2024 Discontinued (Therapy completed) Problems Active Problems Problem ClassificationProblemDateDocumented DateEpisodic/Chronic Administrative/social admission (2 sources)Advance directive discussed with patient; Translations: [Other specified counseling]88-15-7071RroytmtlLamyxnm dysrhythmias (20 sources)Ventricular tachycardia; Translations: [Ventricular tachycardia] Onset: 801878-25-7240YyzmidaLsqljcu kidney disease (20 sources)Chronic kidney disease stage 3B ; Translations: [Stage 3b chronic kidney disease (HCC)]Onset: 133646-91-2074GdgtctiRdprqao kidney disease (1 source)Chronic kidney disease; Translations: [Chronic kidney disease, stage 3b]Onset: 00-25-5733Jbdzijchud disorders (20 sources)Cardiac pacemaker in situ; Translations: [Presence of cardiac pacemaker]Onset: 04-30-2013 Resolved: 130312-68-0524PzwdmauRtqdqfbhwf heart failure; nonhypertensive (20 sources)Acute combined systolic (congestive) and diastolic (congestive) heart failure; Translations: [Chronic systolic (congestive) heart failure]Onset: 24-63-3339QdirhdmOkasuzha atherosclerosis and other heart disease (20 sources)Atherosclerotic heart disease of [place] coronary artery without angina pectoris; Translations: [Coronary atherosclerosis]Onset: 04-25-2023 ChronicDiabetes mellitus with complications (20 sources)Disorder of kidney due to diabetes mellitus; Translations: [Type 2 diabetes mellitus with diabetic nephropathy]Onset: hronic Disorders of lipid metabolism (20 sources)Hyperlipidemia; Translations: [Hyperlipidemia, unspecified]Onset: 02-11-2023 Resolved: 208136-26-4867BvqcwgqVqakqwlcn hypertension (20 sources)Essential hypertension; Translations: [Essential (primary) hypertension]Onset: 700815-39-4340ElcwzsuMguncxtblebyj symptoms and ill- defined conditions (1 source)Dysuria; Translations: [Dysuria]Onset: 48-61-2896HxffzvldQpwoc valve disorders (20 sources)Rheumatic disorders of both mitral and aortic valves; Translations: [Tricuspid valve disorder, non-rheumatic]Onset: 229401-04-0220LpfjbtpJpmjs acquired deformities (20 sources)Postural kyphosis; 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, cervicothoracic region]Onset: 235189-48-7544KpzvhiwQoecy ear and sense organ disorders (10 sources)Asymmetrical sensorineural hearing loss; Translations: [Sensorineural hearing loss, bilateral]33-24-0891XnhduoqDdfzw nervous system disorders (15 sources)Chronic pain; Translations: [Other chronic pain]Onset: 02-11-2023 16-66-7606KdcqyuiVltbn nervous system disorders (20 sources)Chronic pain syndrome; Translations: [Chronic pain syndrome]Onset: 793724-57-6769UmgfdobSmyh-; endo-; and myocarditis; cardiomyopathy (except that caused by tuberculosis or sexually transmitted disease) (20 sources)Primary cardiomyopathy; Translations: [Cardiomyopathy, unspecified] Onset: 759224-53-4480LdukjdaLpokvnbj codes; unclassified (1 source)Acquired absence of left breast and nipple; Translations: [Acquired absence of left breast and nipple]Onset: 47-19-8692AhuqkbkmJzkxlkoic and history of mental health and substance abuse codes (4 sources)Patient encounter status; Translations: [Encounter for screening examination for other mental health and behavioral disorders]30-45-5231Tmudngnj Spondylosis; intervertebral disc disorders; other back problems (20 sources)Lumbosacral spondylosis without myelopathy; Translations: [Spondylosis without myelopathy or radiculopathy, lumbosacral region]Onset: 459381-23-7823AmsqafyNrdfggqejeus (3 sources)LOW BACK PAIN, UNSPECIFIED; Translations: [LOW BACK PAIN, UNSPECIFIED]Onset: 50-01-3815Fcqtklsozifr (1 source)Low back pain, unspecified; Translations: [Low back pain, unspecified] Onset: 06-24-2024 Past or Other Problems Problem ClassificationProblemDateDocumented DateEpisodic/ChronicCancer of breast (20 sources)Primary malignant neoplasm of breast; Translations: [Malignant neoplasm of unspecified site of unspecified female breast]Onset: 11-30-2015 Resolved: 065984-79-1933PqzwtzvDwgzxw of breast (20 sources)History of malignant neoplasm of breast; Translations: [Personal history of malignant neoplasm of breast]Onset: 681409-06-7553Yjdompxi Coronary atherosclerosis and other heart disease (2 sources)Presence of aortocoronary bypass graft; Translations: [Presence of aortocoronary bypass graft]Onset: 03-16-3160BzxjzqglE Codes: Fall (20 sources)Fall; Translations: [Unspecified fall, initial encounter]Onset: 03-26-2024 Resolved: 018797-62-6707NqonzpyoYggo disorders (20 sources)Mood disordersOnset: Other aftercare (20 sources)Drug therapy finding; Translations: [Other care home (current) drug therapy]Onset: 910161-48-6250EczbedqoCsoad aftercare (20 sources)Polypharmacy ; Translations: [Other care home (current) drug therapy]Onset: 794632-98-7897ShaztoyiJxqxz gastrointestinal disorders (18 sources)Chronic constipation; Translations: [Other constipation]Onset: 396443-63-4732HdihejuuOhagw screening for suspected conditions (not mental disorders or infectious disease) (20 sources)Depression of left ventricular systolic function; Translations: [Abnormal result of cardiovascular function study, unspecified]Onset: 02-11-2023 69-45-5598ZnqbxzamCdsshaaj codes; unclassified (2 sources)Other specified postprocedural states; Translations: [Other specified postprocedural states]Onset: 76-39-2636RwnaeslmPcqsipsmnio; intervertebral disc disorders; other back problems (2 sources)Pain in thoracic spine; Translations: [Backache]Onset: 06-24-2024 EpisodicUnclassified (1 source)LOW BACK PAIN, UNSPECIFIED; Translations: [LOW BACK PAIN, UNSPECIFIED] Onset: 02-12-2023 Results Test NameValueInterpretationReference RangeFacilityOffice Visiton 07-06-2025 Follow-up [id number] Daysi De Leon 1935 F Date Provider Department Center 07/06/2025 [facility] Family History Problem Relation Age of Onset Coronary artery disease Other Family Status - Relation Status Age at Mother Father Other Level of Service:22[address] [place] OFFICE/OUTPATIENT ESTABLISHED [facility] CADon 05-25-2025 MAMM SCREENING UNILAT RT W CADMAMM SCREENING UNILAT RT W CAD DAYSI DE LEON 1935 [id number] EXAM: MAMM SCREENING UNILAT RT W CAD, [...] 10:01 AM 1 c MAMM 1 YRNormalProMedica Martin Luther Hospital Medical CenterOrders Onlyon 99-54-3264Vtrwew Only [id number] Daysi De Leon 1935 F Date Provider Department Center 04/23/2025 [facility] Family History Problem Relation Age of Onset Coronary artery disease Other Family Status - Relation Status Age at Mother Father OtherNormalUniversLancaster Municipal Hospital36on 92-11-972146Opryukv's daughter called stating all doses of carvedilol have been recalled. What would you like her to switch to? I did have her call the pharmacy to see what they recommend, or if they have a protocol. Thanks.NormalLancaster Municipal HospitalCOMPREHENSIVE METABOLIC PANELon 92-02-0179Zvkoaeq [Mass/Vol]4.3 g/dLNormal3.6-5.1Quest DiagnosticsComment on above:Performed By: #### 496, 92603 #### [facility] [address], [address] [place] [address] Environmental Health Inspector: Dami Rossi MDAlbumin/Globulin [Mass ratio]1.7 {ratio}Normal 1.0-2.5Quest DiagnosticsComment on above:Performed By: #### 496, 69689 #### [facility] [place] [address] Environmental Health Inspector: Dami Rossi MDALP [Catalytic activity/Vol]77 U/CYegppp67-071 Quest DiagnosticsComment on above:Performed By: #### 496, 98798 #### [facility] [place] [address] Environmental Health Inspector: Dami Rossi MDALT [Catalytic activity/Vol]22 U/LNormal6-29 Quest DiagnosticsComment on above:Performed By: #### 496, 24534 #### [facility] [place] [address] Environmental Health Inspector: Dami Rossi MDAST [Catalytic activity/Vol]25 U/EImlxxp19-39 Quest DiagnosticsComment on above:Performed By: #### 496, 88138 #### [facility] [place] [address] Environmental Health Inspector: Dami Rossi MDBilirubin [Mass/Vol]0.5 mg/dLNormal0.2-1.2 Quest DiagnosticsComment on above:Performed By: #### 496, 90436 #### [facility] [place] [address] Environmental Health Inspector: Dami Rossi MDCalcium [Mass/Vol]9.2 mg/dLNormal8.6-10.4Quest DiagnosticsComment on above:Performed By: #### 496, 59510 #### [facility] [place] [address] Environmental Health Inspector: Dami Rossi MDChloride [Moles/Vol]108 mmol/LXjgnku21-428 Quest DiagnosticsComment on above:Performed By: #### 496, 11593 #### [facility] [place] [address] Environmental Health Inspector: Dami Rossi MDCO2 [Moles/Vol]18 mmol/QDfm68-12Nfxlw DiagnosticsComment on above:Performed By: #### 496, 23421 #### [facility] [place] [address] Environmental Health Inspector: Dami Rossi MDCreatinine [Mass/Vol]1.26 mg/dLHigh0.60-0.95 Quest DiagnosticsComment on above:Performed By: #### 496, 83990 #### [facility] [place] [address] Environmental Health Inspector: Dami Rossi MDGFR/1.73 sq M.predicted among non-blacks MDRD (S/P/Bld) [Vol rate/Area]41 mL/min/{1.73_m2}Low> OR = 60Quest DiagnosticsComment on above:Performed By: #### 496, 75789 #### [facility] [place] [address] Environmental Health Inspector: Dami Rossi MDGlobulin (S) [Mass/Vol]2.6 g/dLNormal1.9-3.7 Quest DiagnosticsComment on above:Performed By: #### 496, 33133 #### [facility] [place] [address] Environmental Health Inspector: Dami Rossi MDGlucose [Mass/Vol]110 mg/vBFktn16-22Xjskp DiagnosticsComment on above:Result Comment: Fasting reference interval For someone without known diabetes, a glucose value between 100 and 125 mg/dL is consistent with prediabetes and should be confirmed with a follow-up test.Performed By: #### 496, 42668 #### [facility] [place] [address] Environmental Health Inspector: Dami Rossi MDPotassium [Moles/Vol]4.8 mmol/LNormal3.5-5.3 Quest DiagnosticsComment on above:Performed By: #### 496, 33265 #### [facility] [place] [address] Environmental Health Inspector: Dami Rossi MDProtein [Mass/Vol]6.9 g/dLNormal6.1-8.1Quest DiagnosticsComment on above:Performed By: #### 496, 88787 #### [facility] [place] [address] Environmental Health Inspector: Dami Rossi MDSodium [Moles/Vol]139 mmol/LSkfpxc695-723Idwsb DiagnosticsComment on above:Performed By: #### 496, 84532 #### [facility] [place] [address] Environmental Health Inspector: Dami Rossi MDUrea nitrogen [Mass/Vol]29 mg/dLHigh7-25Quest DiagnosticsComment on above:Performed By: #### 496, 35683 #### [facility] [address], [address] [place] [address] Environmental Health Inspector: Dami Rossi MDUrea nitrogen/Creatinine [Mass ratio]23 mg/mg High6-22Quest DiagnosticsComment on above:Performed By: #### 496, 42091 #### [facility] [address], [address] [place] [address] Environmental Health Inspector: Dami Rossi MDHEMOGLOBIN A1con 35-70-2508OiQ7h (Bld) [Mass fraction]6.8 %High<5.7Quest DiagnosticsComment on above:Result [...] of diabetes for children.Performed By: #### 496, 27858 #### [facility] [address], [address] [place] [address] Environmental Health Inspector: Dami Rossi MDOffice Visiton 43-83-1622Pnwdrb-up visit [id number] Daysi De Leon 1935 F Date Provider Department Center 03/01/2025 DEVIN GARCIA [facility] Family History Problem Relation Age of Onset Coronary artery disease Other Family Status - Relation Status Age at Mother Father Other Level of Service:03134 [place] OFFICE/OUTPATIENT ESTABLISHED MOD [facility]CA ECHO DOPPLER COMPLETEon 60-27-6901[facility] [address] [place] [address] Cardiology Report Signed Patient: DAYSI DE LEON MR#: [id number] : 1935 Acct:[id number] Age/Sex: 89 / F ADM Date: 02/23/25 Loc: CARD Attending Dr: DEVIN COLE Ordering Physician: DEVIN COLE Date of Service: 02/23/25 Procedure(s): CA echo doppler complete Accession Number(s): [id number] cc: CASSIUS HENDRIX ; DEVIN COLE Patient Name: DAYSI DE LEON MR#: [id number] : 1935 Exam Date: 02/23/2025 Ordering Doctor: [...] content not included)...TBHRadiology, Radiologist, - 02/23/[address] [address] Cardiology Report Signed Patient: DAYSI DE LEON MR#: [id number] : 1935 Acct:[id number] Age/Sex: 89 / F ADM Date: 02/23/25 Loc: CARD Attending Dr: DEVIN COLE Ordering Physician: DEVIN COLE Date of Service: 02/23/25 Procedure(s): CA echo doppler complete Accession Number(s): [id number] cc: CASSIUS HENDRIX ; DEVIN COLE Patient Name: DAYSI DE LEON MR#: [id number] : 1935 Exam Date: 02/23/2025 Ordering Doctor: [...] COLE Signed By: 02/23/251623 DD/ 21 TD/TT: Specialty Sales Consultant: [facility] [employer] Belt TechnologiesRadiology Study observation (narrative)[facility] Blue Belt TechnologiesIA ECHO DOPPLER COMPLETEOrdered By: Radiologist Radiology on 31-00-3928Y[facility] [employer] Work Phone: HEMOGLOBIN A1con 86-44-4057ZrI5r (Bld) [Mass fraction] 7.1 %High<5.7Quest DiagnosticsComment on [...] children.Performed By: #### 496 #### [facility] [address], [address] [place] [address] Environmental Health Inspector: Dami Rossi [facility] METABOLIC PANELon 84-78-9487Gdtnecv [Mass/Vol]9.2 mg/dLNormal8.6-10.4Quest DiagnosticsComment on above:Performed By: #### 1759, 35084 #### [facility]-[address] [address] Environmental Health Inspector: Shanice Casey FlatiChloride [Moles/Vol]106 mmol/XTcbpee47-370 Quest DiagnosticsComment on above:Performed By: #### 1759, 11200 #### [facility] [address] [place] [address] Environmental Health Inspector: Shanice Casey FlatiCO2 [Moles/Vol]28 mmol/CHgrllo57-22Bbbad DiagnosticsComment on above:Performed By: #### 1759, 38927 #### [facility] [address] [place] [address] Environmental Health Inspector: Shanice Casey FlatiCreatinine [Mass/Vol]1.42 mg/dLHigh0.60-0.95 Quest DiagnosticsComment on above:Performed By: #### 1759, 86544 #### [facility] [address] [place] [address] Environmental Health Inspector: Shanice Casey FlatiGFR/1.73 sq M.predicted among non-blacks MDRD (S/P/Bld) [Vol rate/Area]36 mL/min/{1.73_m2}Low> OR = 60Quest DiagnosticsComment on above:Performed By: #### 1759, 11549 #### [facility] [address] [place] [address] Environmental Health Inspector: Shanice Casey FlatiGlucose [Mass/Vol]115 mg/lGVygw06-61Uwrnb DiagnosticsComment on above:Result Comment: Fasting reference interval For someone without known diabetes, a glucose value between 100 and 125 mg/dL is consistent with prediabetes and should be confirmed with a follow-up test.Performed By: #### 1759, 82212 #### [facility] [address] [place], [place] [address] Environmental Health Inspector: Shanice Casey FlatiPotassium [Moles/Vol]4.9 mmol/LNormal3.5-5.3 Quest DiagnosticsComment on above:Performed By: #### 1759, 76585 #### [facility] [address] [place], [place] [address] Environmental Health Inspector: Shanice Casey FlatiSodium [Moles/Vol]138 mmol/RJbpbis956-467Mnvdc DiagnosticsComment on above:Performed By: #### 1759, 67737 #### [facility] [address] [place] [address] Environmental Health Inspector: Shanice Casey FlatiUrea nitrogen [Mass/Vol]31 mg/dLHigh7-25Quest DiagnosticsComment on above:Performed By: #### 1759, 78901 #### [facility] [address] [place], [place] [address] Environmental Health Inspector: Shanice Casey FlatiUrea nitrogen/Creatinine [Mass ratio]22 mg/mg Normal6-22Quest DiagnosticsComment on above:Performed By: #### 1759, 76760 #### [facility] [address] [place] [address] Environmental Health Inspector: Shanice DavisiCBC (H/H, RBC, INDICES, WBC, PLT)on 10-13-2024 Erythrocyte distribution width (RBC) [Ratio]13.8 %Gwwgum68.0-15.0Quest DiagnosticsComment on above:Performed By: #### 1759, 27047 #### [facility] [address] [place] [address] Environmental Health Inspector: Shanice Casey FlatiHematocrit (Bld) [Volume fraction]40.0 %Normal 35.0-45.0Quest DiagnosticsComment on above:Performed By: #### 1759, 37004 #### [facility] [address] [place] [address] Environmental Health Inspector: Shanice Casey FlatiHemoglobin (Bld) [Mass/Vol]13.1 g/dLNormal 11.7-15.5Quest DiagnosticsComment on above:Performed By: #### 1759, 20360 #### [facility] [address] [place], [place] [address] Environmental Health Inspector: hSanice DavisiMCH (RBC) [Entitic mass]30.2 jhJnfopx66.0-33.0 [facility] DiagnosticsComment on above:Performed By: #### 1759, 25769 #### [facility] [address] [place] [address] Environmental Health Inspector: Shanice DavisiMCHC (RBC) [Mass/Vol]32.8 g/rNBjwtzw09.0-36.0 [facility] DiagnosticsComment on above:Result Comment: For adults, a slight decrease in the calculated MCHC value (in the range of 30 to 32 g/dL) is most likely not clinically significant; however, it should be interpreted with caution in correlation with other red cell parameters and the patient's clinical condition.Performed By: #### 1759, 46850 #### [facility] [address] [place] [address] Environmental Health Inspector: Shanice DavisiMCV (RBC) [Entitic vol]92.2 oAJdohdd75.0-100.0 [facility] DiagnosticsComment on above:Performed By: #### 1759, 37708 #### [facility] [address] [place] [address] Environmental Health Inspector: Shanice DavisiPlatelet mean volume (Bld) [Entitic vol]10.4 fLNormal7.5-12.5Quest DiagnosticsComment on above:Performed By: #### 1759, 78407 #### [facility] [address] [place] [address] Environmental Health Inspector: Shanice DavisiPlatelets (Bld) [#/Vol]200 10*3/uLNormal 140-400Quest DiagnosticsComment on above:Performed By: #### 1759, 95485 #### [facility] Environmental Health Inspector: Shanice DavisiRBC (Bld) [#/Vol]4.34 10*6/uLNormal3.80-5.10 [facility] DiagnosticsComment on above:Performed By: #### 1759, 87898 #### [facility] [address] [place] [address] Environmental Health Inspector: Shanice Casey FlatiWBC (Bld) [#/Vol]7.4 10*3/uLNormal3.8-10.8 [facility] DiagnosticsComment on above:Performed By: #### 1759, 59607 #### [facility] [address] [place] [address] Environmental Health Inspector: Shanice Porter Visiton 66-68-0018Umbvwf-up visit [id number] Daysi De Leon 1935 F Date Provider Department Center 09/14/2024 DEVIN GARCIA [facility] Family History Problem Relation Age of Onset Coronary artery disease Other Family Status - Relation Status Age at Other Level of Service:02745 [place] OFFICE/OUTPATIENT ESTABLISHED MOD MDM 30 [facility] HospitalUrine Cultureon 81-19-0548Fwmkvfkd identified Cx Nom (U)ORGANISM: Strep agalactiae - (group b) (O:STRAGA) [place] Count >100,000 PERFORMED BY: [place] [address] PATHOLOGIST EDITOR INDEX DARIUS MAC M.D.NormalThe Formerly [facility] Physician GroupComment on above: Performed By: #### CUU #### [place] [address] [facility] ECHO DOPPLER COMPLETEon 15-12-0[place], [place] [address] Cardiology Report Signed Patient: DAYSI DE LEON MR#: [id number] : 1935 Acct:[id number] Age/Sex: 88 / F ADM Date: 09/11/24 Loc: CARD Attending Dr: Cam Polanco M.D. Ordering Physician: Cam Polanco M.D. Date of Service: 09/11/24 Procedure(s): CA echo doppler complete Accession Number(s): [id number] cc: Cam Polanco M.D.; CASSIUS HENDRIX Patient Name: DAYSI DE LEON MR#: [id number] : 1935 Exam Date: 09/11/2024 Ordering Doctor: [...] Area (VTI): 1.62 cm2, 1.67 cm2 Deceleration Clinton: 1.88 m/s2 Pressure Half-Time: 516.16 ms Peak Velocity(Antegrade Flow): 1.50 m/s Peak Gradient(Antegrade Flow): 8.95 mm[Hg] Mean Velocity(Antegrade Flow): 1.25 m/s Mean Gradient(Antegrade Flow): 6.47 mm[Hg] Velocity Time Integral: 33.90 cm Tricuspid Valve Peak Velocity (Regurgitant Flow): 2.51 m/s, 2.57 m/s, 3.06 m/s Pulmonic Valve (more content not included)...TBHRadiology, Radiologist, MD - 09/11/2024 [place] [address] Cardiology Report Signed Patient: DAYSI DE LEON MR#: [id number] : 1935 Acct:[id number] Age/Sex: 88 / F ADM Date: 09/11/24 Loc: CARD Attending Dr: Cam Polanco M.D. Ordering Physician: Cam Polanco M.D. Date of Service: 09/11/24 Procedure(s): CA echo doppler complete Accession Number(s): [id number] cc: Cam Polanco M.D.; CASSIUS HENDRIX Patient Name: DAYSI DE LEON MR#: [id number] : 1935 Exam Date: 09/11/2024 Ordering Doctor: [...] 3.49 cm Aortic Valve AoV Area (Peak Reasmo): 1.79 cm2, 1.81 cm2 AoV Area (VTI): 1.62 cm2, 1.67 cm2 Deceleration Clinton: 1.88 m/s2 Pressure Half-Time: 516.16 ms Peak [...] COLE Signed By: 09/11/241811 DD/ 10 TD/TT: Specialty Sales Consultant: NIYA HealthcareRadiology Study observation (narrative)[facility] HospitalCA ECHO DOPPLER COMPLETEOrdered By: Radiologist Radiology on 34-29-9321[employer] Work Phone: Office Visiton [phone]-up [id number] Daysi De Leon 1935 F Date Provider Department Center 08/25/2024 Santiago-CAM POLANCO Family History Problem Relation Age of Onset Coronary artery disease Other Family Status - Relation Status Age at Other Level of Service:59764 [place] OFFICE/OUTPATIENT NEW MODERATE MDM 45 MINUTESNormal [facility] HospitalALL LIPID PROFILE (FASTING)on 54-95-2136THXK HDL RATIO2.1NOMS HealthcareComment on above:3.3 - 4.4 LOW RISK 4.4 - 7.1 AVERAGE RISK 7.1 - 11.0 MODERATE RISK >11.0 HIGH RISK Cholesterol [Mass/Vol]102 mg/dLNINF - 200 mg/dLNOMO HealthcareCholesterol in HDL [Mass/Vol]49 mg/dL40 - 60 mg/dLNOMS HealthcareComment on above:> or =60 mg/dl - LOW CARDIOVASCULAR RISK <40 mg/dl - HIGH CARDIOVASCULAR RISK Magnesium [Mass/Vol]42.6 mg/dLNOMO HealthcareComment on above:<100 mg/dl OPTIMAL 100-129 mg/dl NEAR OR ABOVE OPTIMAL 130-159 mg/dl BORDERLINE HIGH 160-189 mg/dl HIGH >190 mg/dl VERY HIGH Magnesium [Mass/Vol]10.4 mg/dLNOMO HealthcareTriglyceride [Mass/Vol]52 mg/dLNINF - 150 mg/dLNOMO HealthcareCCF Oumar 54-57-9109ITY [Catalytic activity/Vol]28 U/L14 - 59 U/LNOMS HealthcareCCF Corey 06-69-1273AVB [Catalytic activity/Vol]19 U/L15 - 37 U/LNOMS HealthcareNo Panel Informationon 16-73-7229APYOQCLWLXFUA HealthcareDrugs of abuse panel Screen (U)on 93-86-7462Yypmhqnanwrb Ql (U) NegativeNOMS HealthcareBarbiturates Ql (U)NegativeNOMS HealthcareBenzodiazepines Ql (U)NegativeNOMS HealthcareBenzoylecgonine Ql (U)NegativeNOMS Healthcare Carboxy tetrahydrocannabinol (Mec) [Mass/Mass]NegativeNOMS Healthcare Interpretation and review of laboratory resultsNormalNOMS HealthcareMethadone (U) [Mass/Vol]NegativeNOMS HealthcareMethylenedioxymethamphetamine Screen Ql (U) NegativeNOMS HealthcareMorphine (U) [Mass/Vol]NegativeNOMS HealthcareOpiates Ql (U)NegativeNOMS HealthcareoxyCODONE Ql (U)NegativeNOMS HealthcarePhencyclidine Ql (U)NegativeNOMS HealthcareReference Lab Test IDNegativeNOMS Healthcare Tricyclic antidepressants [Mass/Vol]NegativeNOMS HealthcareNOMS HealthcareBASIC METABOLIC PANLon 03-28-9155Oqxeo gap [Moles/Vol]9 mmol/LNormal5-15[facility] Hospital SouthComment on above:Performed By: #### BMP #### [facility] ([id number]) [address], [address] [place], [place] [address]Mdlalji [Mass/Vol]9.5 mg/dLNormal8.5-10.5POhio State Health SystemComment on above:Performed By: #### BMP #### [facility] ([id number]) [address], [address] [place], [place] [address]Ddwcemso [Moles/Vol]99 mmol/IRrgtjj24-125EuaCbugbjDel Sol Medical CenterComment on above:Performed By: #### BMP #### [facility] ([id number]) [address] [facility] [place], [place] [address]VN3 [Moles/Vol]29 mmol/AOlyncr49-05BiaAyjahxOhio State Health System Comment on above:Performed By: #### BMP #### [facility] ([id number]) [address], [address] [place], [place] [address]Ksacuysjyg [Mass/Vol]1.39 mg/dLHigh0.40-1.00[facility] Hospital SouthComment on above:Result Comment: METHOD TRACEABLE TO IDMS STANDARD Performed By: #### BMP #### [facility] ([id number]) [address], [address] [place], [place] [address]YCL/1.73 sq M.predicted among non-blacks MDRD (S/P/Bld) [Vol rate/Area]37 mL/min/{1.73_m2}Low>59ProDel Sol Medical CenterComment on above: Result Comment: Reported eGFR is based on the CKD-EPI 2020 equation that does not use a race coefficient.Performed By: #### BMP #### [facility] ([id number]) [address], [address] [place], [place] [address]Eldackn [Mass/Vol]121 mg/bJOcbg88-80LsuLomyvfPremier Health Miami Valley Hospital South Comment on above:Performed By: #### BMP #### [facility] ([id number]) [address], [address] [place], [place] [address]Kcoihwjjz [Moles/Vol]3.9 mmol/LNormal3.5-5.0ProDel Sol Medical CenterComment on above:Performed By: #### BMP #### [facility] ([id number]) [address], [address] [place], [place] [address]Jqynhn [Moles/Vol]137 mmol/JZmpwea533-317NyxGiorrv Fremont HospitalComment on above:Performed By: #### BMP #### [facility] ([id number]) [address], [address] [place], [place] [address]Cknm nitrogen [Mass/Vol]32 mg/dLHigh5-27ProDel Sol Medical CenterComment on above:Performed By: #### BMP #### [facility] ([id number]) [address], [address] [place], [place] [address]Lmxgdpdi function testson 60-67-1387Jjahy Ear: Mild sloping to profound sensorineural hearing loss above 250 Hz Left Ear: Mild to severe sensorineural hearing loss [facility] METABOLIC PANLon 56-08-2501Bssev gap [Moles/Vol]12 mmol/LNormal5-15ProDel Sol Medical CenterComment on above: Performed By: #### CBCA, BMP, 91544-2, 88396-1 #### [facility] ([id number]) [address], [address] [place] [address]Ncnvygl [Mass/Vol]9.4 mg/dLNormal8.5-10.5POhio State Health SystemComment on above:Performed By: #### MELVIN PATTON, 10694-6, 28856-0 #### [facility] ([id number]) [address], [address] [place] [address]Okfyprfp [Moles/Vol]101 mmol/OOeefri22-835XsdMctwsnDel Sol Medical CenterComment on above:Performed By: #### MELVIN PATTON, , 19662-9 #### [facility] ([id number]) [address], [address] [place] [address]ZN4 [Moles/Vol]24 mmol/XUpsjic49-08OdyWhhocoOhio State Health System Comment on above:Performed By: #### MELVIN PATTON, , 18386-0 #### [facility] ([id number]) [address], [address] [place], [place] [address]Iurfczgskk [Mass/Vol]1.60 mg/dLHigh0.40-1.00[facility] Hospital SouthComment on above:Result Comment: METHOD TRACEABLE TO IDMS STANDARD Performed By: #### MELVIN PATTON, , 90653-3 #### [facility] ([id number]) [address], [address] [place], [place] [address]VOU/1.73 sq M.predicted among non-blacks MDRD (S/P/Bld) [Vol rate/Area]31 mL/min/{1.73_m2}Low>59ProDel Sol Medical CenterComment on above: Result Comment: Reported eGFR is based on the CKD-EPI 2020 equation that does not use a race coefficient.Performed By: #### MELVIN PATTON, 97779-8, 05464-9 #### [facility] ([id number]) [address], [address] [place] [address]Essawkm [Mass/Vol]111 mg/zSQvzc34-18IwkUitkypDel Sol Medical Center Comment on above:Performed By: #### MELVIN PATTON, , 23781-6 #### [facility] ([id number]) [address], [address] [place], [place] [address]Gcjqitlve [Moles/Vol]5.0 mmol/LNormal3.5-5.0ProDel Sol Medical CenterComment on above:Performed By: #### MELVIN PATTON, , #### [facility] ([id number]) [address], [address] [place], [place] [address]Uddhgy [Moles/Vol]137 mmol/VWsmplt311-917OsqVvbhfw [facility]remont HospitalComment on above:Performed By: #### MELVIN PATTON, , #### [facility] ([id number]) [address], [address] [place], [place] [address]Ukmi nitrogen [Mass/Vol]43 mg/dLHigh5-27ProDel Sol Medical CenterComment on above:Performed By: #### MELVIN PATTON, , 76296-7 #### [facility] ([id number]) [address], [address] [place], [place] [address]PKR AND AUTO DIFFon 25-05-6863ZWKJKYIK BASOPHIL0.0 X10E9/LNormal 0.0-0.2POhio State Health SystemComment on above:Performed By: #### MELVIN PATTON, , 17655-3 #### [facility] ([id number]) [address], [address] [place], [place] [address]JQCXZVTH NEUTROPHIL3.8 X10E9/LNormal1.5-6.6ProDel Sol Medical CenterComment on above:Performed By: #### MELVIN PATTON, , #### [facility] ([id number]) [address], [address] [place], [place] [address]Zzgdxurlb/100 WBC (Bld)0.8 %[facility] Comment on above:Performed By: #### CBCMELVIN May, , 29113-7 #### [facility] ([id number]) [address], [address] [place], [place] [address]Bgirsnnqruy (Bld) [#/Vol]0.2 10*3/uLNormal0.0-0.4Prem[facility] Hospital SouthComment on above:Performed By: #### POOJA, MELVIN, , 06784-3 #### [facility] ([id number]) [address], [address] [place], [place] [address]Kiezihsqvzo/100 WBC (Bld)2.7 %NormalPremier Health Miami Valley Hospital South Comment on above:Performed By: #### MELVIN PATTON, , 68797-0 #### [facility] ([id number]) [address], [address] [place], [place] [address]Fxysnbiatyx distribution width (RBC) [Ratio]15.5 %High11.5-15.0 [facility] Hospital SouthComment on above:Performed By: #### MELVIN PATTON, , 82458-0 #### [facility] ([id number]) [address], [address] [place], [place] [address]Fxypsblhpg (Bld) [Volume fraction]43.0 %Wltcbs38-48KwjItmyxuPremier Health Miami Valley Hospital SouthComment on above:Performed By: #### CBCYadira, MELVIN, , 56201-0 #### [facility] ([id number]) [address], [address] [place], [place] [address]Jehlztoeum (Bld) [Mass/Vol]14.4 g/pBAjmlve24.7-15.5POhio State Health SystemComment on above:Performed By: #### CBCA, BMP, 53152-5, 99526-8 #### [facility] ([id number]) [address], [address] [place], [place] [address]Kcfcgtebkyr (Bld) [#/Vol]1.4 10*3/uLNormal1.0-3.5POhio State Health SystemComment on above:Performed By: #### CBCA, BMP, 31768-6, 62130-4 #### [facility] ([id number]) [address], [address] [place], [place] [address]Unkimggyuxk/100 WBC (Bld)22.9 %NormalProDel Sol Medical Center Comment on above:Performed By: #### CBCA, BMP, 23780-6, 35805-5 #### [facility] ([id number]) [address], [address] [place], [place] [address]QNC (RBC) [Entitic mass]31.8 unJcnkco24-54ZhbHbgmfoDel Sol Medical CenterComment on above:Performed By: #### CBCA, BMP, , 84707-5 #### [facility] ([id number]) [address], [address] [place], [place] [address]IQRT (RBC) [Mass/Vol]33.6 g/sXUbrthp76-25IseKnkysbDel Sol Medical CenterComment on above:Performed By: #### CBCA, BMP, 05683-7, 83644-0 #### [facility] ([id number]) [address], [address] [place], [place] [address]KVJ (RBC) [Entitic vol]95 qGVhkdnr60-253QphUivsbp [facility]remont HospitalComment on above:Performed By: #### CBCA, BMP, 20577-9, 19813-3 #### [facility] ([id number]) [address], [address] [place], [place] [address]Izoliigrm (Bld) [#/Vol]0.8 10*3/uLNormal0-0.9[facility] Hospital SouthComment on above:Performed By: #### CBCA, BMP, , 57261-4 #### [facility] ([id number]) [address], [facility] [address] [place], [place] [address]Zgahnfdxa/100 WBC (Bld)12.3 %NormalPremier Health Miami Valley Hospital South Comment on above:Performed By: #### CBCA, BMP, , 83985-9 #### [facility] ([id number]) [address], [facility] [address] [place], [place] [address]Gicnhfiuimi/100 WBC (Bld)61.3 %NormalPremier Health Miami Valley Hospital South Comment on above:Performed By: #### CBCA, BMP, , 17264-3 #### [facility] ([id number]) [address], [address] [place] [address]Mkfeivak mean volume (Bld) [Entitic vol]9.4 fLNormal7-12 [facility] SouthComment on above:Performed By: #### CBCA, BMP, , 76174-7 #### [facility] ([id number]) [address], [address] [place], [place] [address]Qzveqxzll (Bld) [#/Vol]183 10*3/sIBuqpvj489-631LetTrkwjePremier Health Miami Valley Hospital SouthComment on above:Performed By: #### CBCA, BMP, , 52527-3 #### [facility] ([id number]) [address], [facility] [address] [place], [place] [address]IOW COUNT4.54 X10E12/LNormal3.80-5.20[facility] Comment on above:Performed By: #### CBCA, BMP, , 38136-2 #### [facility] ([id number]) [address], [address] [place], [place] [address]XDY (Bld) [#/Vol]6.2 10*3/uLNormal4.0-11.0[facility] SouthComment on above:Performed By: #### MELVIN PATTON, 86506-9, 45675-2 #### [facility] ([id number]) [address], [address] [place], [place] [address]TJGKJBODIwk 72-75-8537Mwmowrohd [Mass/Vol]2.8 mg/dLHigh1.8-2.6 [facility] SouthComment on above:Performed By: #### MELVIN PATTON, , 97238-5 #### [facility] ([id number]) [address], [address] [place], [place] [address]WPMBPLZTSOKG - ALBUMIN:CREATININE URINE RATIOon 06-24-2024 ALB/CREAT RATIO16.1 mg/g creatNormal0.0-30.0[facility] Hospital SouthComment on above:Performed By: #### SUAD VERNON #### [facility] ([id number]) [address], [address] [place], [place] [address]Nklntoq DL <= 20 mg/L (U) [Mass/Vol]1.5 mg/dLNormal0.0-1.9 [facility] SouthComment on above:Performed By: #### SUAD VERNON #### [facility] ([id number]) [address], [address] [place], [place] [address]JKCKZ CREAT93.40 mg/dLNormalPremier Health Miami Valley Hospital SouthComment on above:Performed By: #### SAULO UA #### [facility] ([id number]) [address], [address] [place], [place] [address]ZEOYAVHMPPsr 91-49-3052Hyhfclgjp Ql (U)NegativeNormalNEG [facility] SouthComment on above:Performed By: #### SAULO UA #### [facility] ([id number]) [address] [place], [place] [address]JYFRD/HGBTraceAbnormalNEGProDel Sol Medical CenterComcorewell health butterworth hospital on above:Performed By: #### SAULO UA #### [facility] ([id number]) [address] [place], [place] [address]Ojkmu (U)YELLOWNormalYELLOWProDel Sol Medical CenterComment on above:Performed By: #### SAULO UA #### [facility] ([id number]) [address], [address] [place], [place] [address]Fetfyuh Ql (U)>1000AbnormalNEGProDel Sol Medical CenterComment on above:Performed By: #### SAULO UA #### [facility] ([id number]) [address] [place], [place] [address]Bavkiig Ql (U)NegativeNormalNEGProDel Sol Medical CenterComcorewell health butterworth hospital on above:Performed By: #### SAULO UA #### [facility] ([id number]) [address], [address] [place], [place] [address]Xrlujwvvu esterase Test strip Ql (U)LargeAbnormalNEGProDel Sol Medical CenterComcorewell health butterworth hospital on above:Result Comment: HIGH CONCENTRATIONS OF GLUCOSE MAY DECREASE THE REACTIVITY OF THE DIPSTICK LEUKOCYTE TEST PAD.Performed By: #### SAULO UA #### [facility] ([id number]) [address], [address] [place], [place] [address]HHOLAKHKUUCJHBqpqdeuvUGFVXukUmwvrv [facility]remont HospitalComment on above:Performed By: #### SAULO UA #### [facility] ([id number]) [address], [address] [place], [place] [address]Nybdtpe Ql (U)PositiveAbnormalNEGPremier Health Miami Valley Hospital South Comment on above:Performed By: #### SAULO UA #### [facility] ([id number]) [address], [address] [place], [place] [address]hF (U)5.5 [pH]Normal5.0-8.5POhio State Health SystemComment on above:Performed By: #### SAULO UA #### [facility] ([id number]) [address], [address] [place], [place] [address]Oymzwre Ql (U)NegativeNormalNEGPremier Health Miami Valley Hospital SouthComment on above:Performed By: #### SAULO UA #### [facility] ([id number]) [address], [address] [place], [place] [address]T.B.CELLS0 /hpfNormal0-5POhio State Health SystemComment on above:Performed By: #### SAULO UA #### [facility] ([id number]) [address], [address] [place], [place] [address]Jgbhzzld gravity (U) [Rel density]1.295Diuhpy3.003-1.035 [facility] SouthComment on above:Performed By: #### SAULO UA #### [facility] ([id number]) [address], [address] [place], [place] [address]NOXQZCRI EPITHELIUM1 /hpfNormal0-5POhio State Health System Comment on above:Performed By: #### SAULO UA #### [facility] ([id number]) [address], [address] [place], [place] [address]MUWNYQDTAKDTFYKbjfvlKETSHQebBumtbd [facility]remont HospitalComment on above:Performed By: #### SAULO UA #### [facility] ([id number]) [address], [address] [place], [place] [address]Zhodfnhrdptk (U) [Mass/Vol]mg/dLNormal<1.1POhio State Health SystemComment on above:Performed By: #### SAULO, UA #### [facility] ([id number]) [address] [facility] [place] [address]W.B.CELLS17 /hpfHigh0-5POhio State Health SystemComcorewell health butterworth hospital on above:Performed By: #### SAULO UA #### [facility] ([id number]) [address] [facility], [address] [address]Ixjonqa D+Metabolites [Mass/Vol]on 68-94-4083PEJPXHZ D 25 HYD TOT48.1 ng/jUIkcskb30-263LwgAolsgx [facility] HospitalComcorewell health butterworth hospital on above:Result Comment: Vitamin D status 25 [place] Vitamin D Deficiency <20 ng/mL Insufficiency 20-29 ng/mL Sufficiency 30-100 ng/mL Toxicity >100 ng/mL NOTE: A pediatric reference range has not been established by the monitoring specialist of this kit. The [place] [employer] recommends a Vitamin D level of = or >20ng/mL in infants and children.Performed By: #### CBCA, [facility], [address]-4, 99249-9 #### [facility] ([id number]) [address] [facility], [address] [address]ZJ Heart Gated at rest and W radionuclide Karen 76-77-43[address] [address] Nuclear Medicine Report Signed Patient: DAYSI DE LEON MR#: [id number] : 1935 Acct:[id number] Age/Sex: 88 / F ADM Date: 02/17/24 Loc: BOBBY Attending Dr: DEVIN COLE Ordering Physician: DEVIN COLE Date of Service: 02/17/24 Procedure(s): BOBBY bro Accession Number(s): [id number] cc: Shaikh Edgar Locke; DEVIN COLE The [address] [id number] Patient Name: DAYSI DE LEON MRN: [id number] date: 1935 Sex: F Assigned Patient Location: [place] Current Patient Location: Accession/Order Number: [id number] Exam Date: 02/17/2024 14:00 Report Date: 02/18/2024 [...] Signed By: 02/18/24 0857 DD/ 0855 TD/TT: Specialty Sales Consultant:TBHRadiology, Radiologist, MD - 02/19/2024 [place] [address] Nuclear Medicine Report Signed Patient: DAYSI DE LEON MR#: [id number] : 1935 Acct:[id number] Age/Sex: 88 / F ADM Date: 02/17/24 Loc: [place] Attending Dr: DEVIN COLE Ordering Physician: DEVIN COLE Date of Service: 02/17/24 Procedure(s): [place] muga Accession Number(s): [id number] cc: Shaikh Edgar Locke; DEVIN COLE [address] [id number] Patient Name: DAYSI DE LEON MRN: [id number] date: 1935 Sex: F Assigned Patient Location: [place] Current Patient Location: Accession/Order Number: [id number] Exam Date: 02/17/2024 14:00 Report Date: 02/18/2024 [...] Signed By: 02/18/24 0857 DD/ 4 TD/TT: Specialty Sales Consultant: NIYA LuRadiology Study observation (narrative)[facility] Heart Gated at rest and W radionuclide IVOrdered By: Radiologist Radiology on [id number] [employer] Work Phone: nm STRESS/REST MULTIon [id number] STRESS/REST MULTI Patient: DAYSI DE LEON Exam Date: 01/22/2023 : 1935 Gender:F Ordering : DR DEVIN COLE M.D. Admission #: [id number] Family : Order #: [id number] CLICK HERE TO VIEW EXAM RADIOLOGY REPORT [...] STUDY: Excellent. PERFUSION DEFECT: LOCATION: Apical anterior. [place]. SIZE: Small (1-2 segments). SEVERITY: Severe. TYPE: Persistent. WALL MOTION: Akinesis: Dyskinesis: [place]. LV SIZE: Normal. 73 mL. TID / [...] by: Ernie Mobley M.D. on 01/22/2023 at 14:48[facility] HospitalECHOCARDIO M/2D COMPLETEon [id number] M/2D COMPLETEPatient: HALEY DAYSI MayZita Exam Date: 01/04/2023 : 1935 Gender:F Ordering : DR DEVIN COLE M.D. Admission #: [id number] Family : Order #: [id number] CLICK HERE TO VIEW EXAM ECHOCARDIOGRAM REPORT [...] by: Devin Cole M.D. on 01/04/2023 at 16:02McCullough-[facility]de Memorial HospitalXR Bone Density (DEXA)on 73-25-5346OT Bone Density (DEXA) JadloyQEMLlnfb-UxxsgUsx-Sikgjoa Total(g/cm2)(%)T-Score(%)Z-Score Femurs.88092-7.6119+1.0 Impression: The mean BMD and corresponding T-score indicated above indicate Low Bone Mass (Osteopenia) and places the patient at a mild to moderate increased risk for fracture. There may be a future risk of developing osteoporosis. Recommend follow-up exam in 1 year, sooner as clinically necessary. OtkcesCLSKgfbe-RsparIxh-Nxrhwwu Total(g/cm2)(%)T-Score(%)Z-Score L1-L41.39387-6.4137+2.5 Impression: The mean BMD and corresponding T-score [...] and signed by Jack Lion on 02/27/2022 1033NormalNortLima Memorial Hospital SpecialistMicroalbumin (with Creat)on 79-80-5452wMBY<1.2LowNortherUC Medical Center SpecialistComment on above:Result Comment: Unable to calculate mALB/Crea ratio, mALB is <1.2 mg/dL mALB reference range not established.Performed By: #### mALBC #### [facility] [address] [place], [place] [id number] mg/eIBhimku48-898Vbldqwtx [place] [employer]er Comment on above:Performed By: #### mALBC #### [facility] [address] [place], [place] [address]LB Renal/Bladderon 76-25-5285BP Renal/BladderFINDINGS: Right Kidney7.4 x 4.5 x 4.0 cm Left Yqxesj33.8 x 5.1 x 5.7 cm Full bladder [...] and signed by Jack Lion on 12/04/2021 0937NormalLos Angeles Metropolitan [facility] Center Medical SpecialistCoding Summaryon 02-33-9548Ejfmhm SummaryHTMLBase 64 KvzswnlxYEk5sWg+PGhlYWQ+EK9TNGBxS82rvQEssL4PU2dUAT3VKUBDMYZMWH7UQQ5jdCO0UMfnZ9Jd biAv [file] ZGV (more content not included)...NormalMagruder HospitalProvider Orderson 19-04-7100Hzrginwf [id number]#1.00OTGTIFF NormalMagruder HospitalRad - Other Radiology Reporton 49-29-1639Ize - Other Radiology [id number]#1.00OTGTIFFNormal [facility] HospitalRad - Other Radiology Report [id number]#1.00OTBarberton Citizens HospitalRad - Other Radiology Reporton 01-67-2866Rya - Other Radiology Report [id number]#1.00[facility] HospitalOutside Recordson 65-65-1406Ffaqgxq Records [id number]#1.00[facility] Vital Signs Date TimeVital SignValuePerforming SaukjmolvNwjwykuv50-89-7633 13:50-0400Body wevjzj562.6 Anthony Hendrix MD Work Phone: [phone])[address]10-14-2025 13:50-0400Body mass index (BMI) [Ratio]24.37 kg/c9NsxmxaCassius Hendrix MD Work Phone: [phone] [place], [place] [address]Ecjoumumgv85-31-3846 13:50-0400Body fdqkik56.41 kgCassius Hendrix MD Work Phone: [phone] [place], [place] [address]Qhfsfqegnj28-36-0300 13:50-0400Heart rate52 /min Cassius Hendrix MD Work Phone: [phone] [place], [place] [address]Esffwowoii99-33-8786 13:50-7985XqR2% (BldA) [Mass fraction]98 %Cassius Hendrix MD Work Phone: [phone] [place], [place] [address]Apsdwgdneu81-51-5842 13:53-0400Body peqnfi693.6 Anthony Hendrix MD Work Phone: [phone] [place], [place] [address]Jxbpmunqsp74-97-9796 13:53-0400Body mass index (BMI) [Ratio]24.89 kg/o9EfgmuyCassius Hendrix MD Work Phone: [phone])[address] [place], [place] [address]Obbkxvetwq21-62-0716 13:53-0400Body waabdn30.77 kgCassius Hendrix MD Work Phone: [phone])[address]07-15-2025 13:53-0400Heart rate75 /min Cassius Hendrix MD Work Phone: [phone])[address] [place], [place] 5806207-15-2025 13:53-1446AtI8% (BldA) [Mass fraction]95 %Cassius Hendrix MD Work Phone: [phone])[address] [place], [place] 5806204-22-2025 13:42-0400Body ikczam064.6 cmEnikkie Hendrix MD Work Phone: [phone])[address] [place], [place] 5806204-22-2025 13:42-0400Body mass index (BMI) [Ratio]24.89 kg/y2RyhvbkCassius Hendrix MD Work Phone: [phone])[address] [place], [place] 5806204-22-2025 13:42-0400Body rvrdye98.77 kgCassius Hendrix MD Work Phone: [phone])[address] [place], [place] 5806201-29-2025 14:02-0500Body yijaoj930.6 cmEnikkie Hendrix MD Work Phone: [phone] [place], [place] 5806201-29-2025 14:02-0500Body mass index (BMI) [Ratio]24.89 kg/i8CbzjmdCassius Hendrix MD Work Phone: 1(364)[facility] [place], [place] [address]Idqgzhnlpo36-44-4404 14:02-0500Body hyhtzi99.77 kgCassius Hendrix MD Work Phone: 1(748)[facility] [place], [place] [address]Aoywczmayy02-62-3709 14:02-0500Heart rate66 /min Csasius Hendrix MD Work Phone: 1(995)[facility] [place], [place] [address]Gclykqjpdd10-40-7728 14:02-1858EhB3% (BldA) [Mass fraction]97 %Cassius Hendrix MD Work Phone: [phone])[address] [place], [place] 5806210-29-2024 15:36-0400Body bqovso253.6 cmEnikkie Hendrix MD Work Phone: 1(834)[facility] [place], [place] [address]Cushefoqbe54-65-5539 15:36-0400Body mass index (BMI) [Ratio]24.98 kg/n0UtzrvvCassius Hendrix MD Work Phone: 1(579)[facility] [place], [place] [address]Vbqpqhlhpl68-85-2173 15:36-0400Body votguf13 kg Cassius Hendrix MD Work Phone: [phone])[address] [place], [place] 5806210-17-2024 14:22-0400Body .6 cmEnikkie Hendrix MD Work Phone: [phone] HospitalNccegpupsr39-12-0397 14:22-0400Body mass index (BMI) [Ratio]24.98 kg/d9PstjjeCassius Hendrix MD Work Phone: 1(547)[facility] [place], [place] [address]Tyyjzgifpp80-83-6420 14:22-0400Body cacdds45 kg Cassius Hendrix MD Work Phone: 1(176)[facility] [place], [place] [address]Csfzxfqzte07-21-0694 14:22-0400Diastolic blood pjdpixro81 mm[Hg]Cassius Hendrix MD Work Phone: 1(517)[facility] [place], [place] [address]Pnznwxprvd11-86-9925 14:22-0400Heart rate87 /min Cassius Hendrix MD Work Phone: 1(997)[facility] [place], [place] [address]Biprvzpbga41-48-3221 14:22-9945SxC9% (BldA) [Mass fraction]98 %Cassius Hendrix MD Work Phone: 1(768)[facility] [place], [place] [address]Vjepfvupdn76-57-7527 14:22-0400Systolic blood mwelawgm069 mm[Hg]Cassius Hendrix MD Work Phone: 1(357)[facility]-3595University HospitalWycimqdrxw74-43-9877 09:29-0400Body gtypmk682.6 cmJose Monsivaispatrick EARLY CHILDHOOD EDUCATION WORKER Work Phone: University HospitalYpoxunzofs91-28-2689 09:29-0400Body mass index (BMI) [Ratio]24.89 kg/v3Wdcraudl Maddox EARLY CHILDHOOD EDUCATION WORKER Work Phone: [place] [address]Khrulkvxkn40-29-5820 09:29-0400Body temperature 97.2 [degF]Jose Beverlyzpatrick EARLY CHILDHOOD EDUCATION WORKER Work Phone: [place] [address]Vgmweuvvju99-84-9168 09:29-0400Body vfidha95.77 kgJose Beverlyzpatrick EARLY CHILDHOOD EDUCATION WORKER Work Phone: [place] [address]Cnrbpudmlf87-54-0142 09:29-0400Diastolic blood wgyovwsp56 mm[Hg]Jose Beverlyzpatrick EARLY CHILDHOOD EDUCATION WORKER Work Phone: noHarry S. Truman [facility]' HospitalTjfrhoyvew17-97-6350 09:29-0400Heart rate92 /min Jose Beverlyzpatrick EARLY CHILDHOOD EDUCATION WORKER Work Phone: noMO Brawknoqaa56-72-5432 09:29-0400Systolic blood emxxvdtb860 mm[Hg]Jose Beverlyzpatrick EARLY CHILDHOOD EDUCATION WORKER Work Phone: [facility] Encounters Encounter DateEncounter TypeCare ProviderFacilityStart: 08-02-2025 End: 74-21-1622Vgctcm Georgette Hendrix MD Work Phone: [facility] [place] [address] Family MedicineStart: 08-02-2025 End: 26-92-3333Rnsnyz Georgette Hendrix MD Work Phone: [facility] [place] [address] [facility] MedicineStart: 07-13-2025 End: 07-81-9442Ncttwhgraham Hendrix MD Work Phone: [facility] [place] [address] Family MedicineStart: 07-13-2025 End: 00-82-4147Mcfyxb Georgette Hendrix MD Work Phone: [facility] [place] [address] Family MedicineStart: 07-13-2025 End: 36-68-6320Hjduue outpatient visit 40 minutesCassius Hendrix MD Work Phone: [facility] [place] [address] Family MedicineComment on above:Chronic pain syndrome; Controlled substance agreement signed; Type 2 diabetes mellitus with stage 3b chronic kidney disease, without long-term current use of insulin (HCC); Paroxysmal atrial fibrillation (HCC); PolypharmacyStart: 07-13-2025 End: 46-25-6239evqffxaorpBEJEGE J HEMEYERCenterpoint Medical Center AvailableStart: 07-06-2025 End: 14-50-5204imjvwmtjnwKDJJ [facility] Hospitaltart: 05-24-2025 End: 62-48-8812yoxqguazokIGRSNS J HEMEYERSalem Regional Medical Centertart: 05-11-2025 End: 07-46-4121isnqnjnqrhSIZNGreen Cross Hospitaltart: 84-97-3686zafnkzyfcpLISWX GRUBBUniSelect Medical [facility] Rehabilitation Hospitaltart: 04-13-2025 End: 68-66-3919Tnvjpx outpatient visit 25 minutesEdandry Hendrix MD Work Phone: [facility] CI FM 100Comment on above:Chronic pain syndrome (Primary Dx); Lumbosacral spondylosis without myelopathy; Postural kyphosis of cervicothoracic region; Type 2 diabetes mellitus with stage 3b chronic kidney disease, without long-term current use of insulin (HCC); Chronic constipationStart: 04-13-2025 End: 61-71-6753ZxxfseKhixzw J Hemeyer MD Work Phone: [facility] FM 100Comment on above:Type 2 diabetes mellitus with stage 3b chronic kidney disease, without long-term current use of insulin (HCC)Start: 03-18-2025 End: 83-47-3729DoxcpvAdcqhb J Hemeyer MD Work Phone: [facility] FM 100Comment on above:Type 2 diabetes mellitus with stage 3b chronic kidney disease, without long-term current use of insulin (HCC)Start: 03-09-2025 End: 00-33-6664JeggvfWczjhq J Hemeyer MD Work Phone: [facility] FM 100Comment on above:Chronic pain syndrome Start: 03-01-2025 End: 30-58-3630jdonawthrsZOTXYR MOUKARBELLancaster Municipal Hospital Start: 02-23-2025 End: 30-76-5176Xdnxxwwru Result EncounterGeneric External Data ProviderNOMS External Department UnsolicitedStart: 02-23-2025 End: 85-58-5209Oihmrhbvt Result EncounterGeneric External Data ProviderNOMS External Department UnsolicitedStart: 02-09-2025 End: 78-10-2998xstrlprferQNNSGreen Cross Hospitaltart: 17-05-5498xwtweatpxaNUMQGreen Cross Hospitaltart: 01-19-2025 End: 55-26-4698Svtdls Georgette Hendrix MD Work Phone: [phone] CI FM 100Start: 01-19-2025 End: 99-53-8437Ouaiko Georgette Hendrix MD Work Phone: [phone] CI FM 100Start: 01-19-2025 End: 19-49-6736Kjfdml outpatient visit 25 minutesCassius Hendrix MD Work Phone: [phone] FM 100Comment on above:Chronic constipation (Primary Dx); Chronic pain syndrome; Lumbosacral spondylosis without myelopathy; Controlled substance agreement signed; Type 2 diabetes mellitus with stage 3b chronic kidney disease, without long-term current use of insulin ([facility]) ([facility]); PolypharmacyStart: 01-19-2025 End: 89-71-5921znmsjwtdstNXEBQX J HEMEYERNot AvailableStart: 11-18-2024 End: 49-43-5634Vtfzoiy encounter procedureNoHarry S. Truman [facility]' Hospital Aud Audiology Aid - [place] Bates CI AUDComment on above:Asymmetrical sensorineural hearing loss (Primary Dx)Start: 11-18-2024 End: 16-32-9456ntzxhoqdyySYKAKT HEMEYERNot AvailableStart: 11-03-2024 End: 21-58-8906Innchrtwm Ab Hendrix MD Work Phone: [phone] FM 100Start: 10-28-2024 End: 19-01-3337Nbibftgraham Hendrix MD Work Phone: [phone] CI FM 100Start: 10-28-2024 End: 94-32-6318Euhlkv Georgette Hendrix MD Work Phone: [phone] CI FM 100Start: 10-28-2024 End: 60-46-8293Xirive outpatient visit 40 minutesCassius Hendrix MD Work Phone: [phone] FM 100Comment on above:Chronic pain syndrome (Primary Dx); Lumbosacral spondylosis without myelopathy; Postural kyphosis of cervicothoracic region; Controlled substance agreement signed; Polypharmacy; Type 2 diabetes mellitus with stage 3b chronic kidney disease, without long-term current use of insulin (HCC) ([facility])Start: 10-28-2024 End: 93-90-6431bvptrtfggdSFOUCEMadison Mejía AvailableStart: 10-21-2024 End: 01-93-2836aifwyqlztxEUZYFK HEMEYERNot AvailableStart: 10-21-2024 End: 80-82-7784Jskdvbq encounter procedureNoms Aud Audiology Aid - [place] Jana CI AUDComment on above:Asymmetrical sensorineural hearing loss (Primary Dx)Start: 09-14-2024 End: 19-40-0287ftankcgggePccahb M GrobFacility:[facility] Start: 09-14-2024 End: 19-43-5310jknxggumjhFAOPZV MOSelect Medical [facility] Start: 09-11-2024 End: 08-92-8414Omdiyjqrk Result EncounterGeneric External Data ProviderNOMS External Department UnsolicitedStart: 09-11-2024 End: 89-40-3061Vmlovjipb Result EncounterGeneric External Data ProviderNOMS External Department UnsolicitedStart: 09-09-2024 End: 88-85-6701sevvpukdadHQPHDBN A MCGILLNot AvailableStart: 09-09-2024 End: 50-80-8293Rcrctu flowsheetMaikpullman regional hospital Yadira [facility]-A Work Phone: [facility] CI AUDStart: 09-09-2024 End: 05-38-5302Koichp flowsMilana Yadira PozoChitraBon Secours Health System-A Work Phone: [facility] CI AUDStart: 09-09-2024 End: 84-87-8456Qgaxmveh SupportDeefrain Shin [facility]-A Work Phone: [facility] CI AUDComment on above:Asymmetrical sensorineural hearing loss (Primary Dx)Start: 08-25-2024 End: 68-90-2754lkaimndgooWNOD [facility] Hospitaltart: 08-19-2024 End: 04-63-8985Fvsejpm encounter procedureNoms Aud Audiology Aid - [place] DodrillNOMS CI AUDComment on above:Asymmetrical sensorineural hearing loss (Primary Dx)Start: 08-19-2024 End: 19-66-3578ywdlbjbgzgZFBFQQ HEMEYERNot AvailableStart: 08-12-2024 End: 96-59-6101Rajstfvkn Result EncounterGeneric External Data ProviderNOMS External Department UnsolicitedStart: 08-12-2024 End: 78-94-8504Cmbgfksyy Result EncounterGeneric External Data ProviderNOMS External Department UnsolicitedStart: 07-28-2024 End: 10-10-9130Ufbxyp outpatient visit 25 minutesEdandry Hendrix MD Work Phone: [facility] FM 100Comment on above:Chronic pain syndrome (Primary Dx); Lumbosacral spondylosis without myelopathy; Postural kyphosis of cervicothoracic region; Controlled substance agreement signed; Medication monitoring encounter; PolypharmacyStart: 07-28-2024 End: 05-54-1811qrfxzechbmPNSUAW J HEMEYERNot AvailableStart: 07-28-2024 End: 62-35-3102Bltdor flowsJose A Hendrix MD Work Phone: [facility] FM 100Start: 07-28-2024 End: 39-21-0560Myeklf flowsJose A Hendrix MD Work Phone: [facility] FM 100Start: 07-22-2024 End: 67-89-9358tkmgsphvybVQSMIL HEMEYERNot AvailableStart: 07-22-2024 End: 64-06-8362Nnxqsiz encounter procedureNoms Aud Audiology Aid - [place] DodrillNOMS CI AUDComment on above:Asymmetrical sensorineural hearing loss (Primary Dx)Start: 07-16-2024 End: 15-41-4436Dcdqlli encounter Tracie Hendrix MD Work Phone: [facility] FM 100Comment on above:Encounter for Medicare annual wellness exam (Primary Dx); Advance directive discussed with patient; Encounter for screening for other disorder; Screening for alcohol problem; Ventricular tachycardia (CMS/HCC); Primary hypertension (CMS/HCC); Ischemic cardiomyopathy (CMS/HCC); 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); Chronic systolic heart failure (CMS/HCC); Atherosclerosis 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 pectoris (CMS/HCC); 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); Type 2 diabetes mellitus with stage 3b chronic kidney disease, without long-term current use of insulin (HCC) ([facility]/HCC); Mixed hyperlipidemia ([facility]/HCC)Start: 07-16-2024 End: 92-09-8209uexswwjsjzUAIEJF J HEMEYERNot AvailableStart: 07-14-2024 End: 36-30-6334elthlhmzvoKFFIRJW Phyllis LIGIBELProLima City Hospital HospitalStart: 07-13-2024 End: 70-42-0424Lytpht flowsheetMariela May [facility]-A Work Phone: noMS AUDStart: 07-13-2024 End: 81-73-0203Moccro flowsheetCape Regional Medical Center Yadira [facility]-A Work Phone: [facility] AUDStart: 07-13-2024 End: 24-55-0772Xtmupbclf encounterOcean Medical Centernicholas May [facility]-A Work Phone: [facility] AUDStart: 07-13-2024 End: 42-10-5253Ludiqgzf SupportOcean Medical Centernicholas May [facility]-A Work Phone: noMS AUDComment on above:Asymmetrical sensorineural hearing loss (Primary Dx)Start: 06-24-2024 End: 33-06-9864kpcezozqlvFRBNV N VERHOFFProMedica Weakley HospitalStart: 06-24-2024 End: 42-40-9146bxhmpyiymrQWFXBGQC N FITZPATRICKProMedica Weakley HospitalStart: 06-18-2024 End: 58-84-8023VrnxncSamm Maddox EARLY CHILDHOOD EDUCATION WORKER Work Phone: [facility] CWM FMComment on above:Lumbosacral spondylosis without myelopathy (Primary Dx)Start: 06-16-2024 End: 95-18-6220Bhtvfqrgaham Maddox EARLY CHILDHOOD EDUCATION WORKER Work Phone: [facility] CWM FMStart: 06-16-2024 End: 40-55-9636Xzsjym flowsheetJose Beverlyzpatrick EARLY CHILDHOOD EDUCATION WORKER Work Phone: [facility] CWM FMStart: 06-16-2024 End: 19-23-3704Utxspy outpatient visit 15 minutesJose Varsha EARLY CHILDHOOD EDUCATION WORKER Work Phone: [facility] CWM FMComment on above:Other chronic pain (Primary Dx); 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); Type 2 diabetes mellitus with stage 3a chronic kidney disease, without long-term current use of insulin (HCC) (CMS/HCC); Hyperlipidemia, unspecified hyperlipidemia type (CMS/HCC)Start: 05-05-2024 End: 46-14-7563Dheaiqtxc encounterSyoselyn Locke MD Work Phone: noms FMStart: 02-18-2024 End: 98-45-6430Qrqbytedt Result EncounterGeneric External Data ProviderNOMS External Department UnsolicitedStart: 02-18-2024 End: 71-69-2944Vsqfjsxmg Result EncounterGeneric External Data ProviderNOMS External Department UnsolicitedStart: 02-18-2023 End: 61-28-5164Zxfyf of hemosiderin, Erlin Locke MD Work Phone: noms HealthcareStart: 02-12-2023 End: 37-40-0499sjlsynbgfePP CHUYITA PETERSFacility:O8Vlvry: 01-22-2023 End: 17-72-9062oltaxsmnfbZQ CHUYITA PETERSFacility:V9Mcluz: 01-04-2023 End: 11-93-1461qjcbjycslhQU CHUYITA PETERSFacility:Z3Aaybd: 41-05-4531Donokzk encounter procedureEstrellita Greencility:9101Start: 08-27-2018 End: 50-38-0887Ndevyqb encounter procedureDEFAULT PHYSICIANFacility:UTMCStart: 06-16-2018 End: 70-36-3180Nbbtmse encounter procedureDEFAULT PHYSICIANFacility:UTMCStart: 05-26-2018 End: 37-96-2755Bfonyix encounter procedureDEFAULT PHYSICIANFacility:[facility] Procedures DateProcedureProcedure DetailPerforming ClinicianStart: 56-12-4704AG ECHO DOPPLER COMPLETEGeneric External Data ProviderStart: 91-81-4744UM ECHO DOPPLER COMPLETEGeneric External Data ProviderStart: 31-13-0636JVA LIPID PROFILE (FASTING)Generic External Data ProviderStart: 13-30-0919WNX ALTGeneric External Data ProviderStart: 60-84-8965BKR ASTGeneric External Data ProviderStart: 31-32-6840Iiem test prsmv read direct optical obs pr Erin Hendrix MD Work Phone: Start: 62-92-4827IJMFGYZY FUNCTION TESTSMariela Sihn [facility]-A Work Phone: start: 38-55-1985SH Heart Gated at rest and W radionuclide IVGeneric External Data Provider Plan of Treatment DateCare ActivityDetailAuthorStart: 12-11-2025 End: 20-83-0468Pgjbbithrshdo metabolic 2000 panel - Serum or PlasmaComprehensive metabolic panel Lab Routine Chronic pain syndrome Type 2 diabetes mellitus with eoptl0f chronic kidney disease, without long-term current use of insulin (HCC) Expected: 12/11/2025, Expires: 03/11/2026[facility] HealthcareComment on above: Expected: 12/11/2025, Expires: 03/11/2026Start: 12-11-2025 End: 88-50-6485Lasgflbpep A1c/Hemoglobin.total in BloodHemoglobin A1c Lab Routine Type 2 diabetes mellitus with stage 3b chronic kidney disease, without long-term current use of insulin (HCC) Expected: 12/11/2025, Expires: 03/11/2026 [facility] HealthcareComment on above:Expected: 12/11/2025, Expires: 03/11/2026Start: 12-11-2025 End: 58-75-0165Mxvof 1996 panel - Serum or PlasmaLipid panel Lab Routine Type 2 diabetes mellitus with stage 3b chronic kidney disease, without long-term current use of insulin (HCC) Expected: 12/11/2025, Expires: 03/11/2026[facility] Work Phone: Comment on above:Expected: 12/11/2025, Expires: 03/11/2026Start: 10-12-2025 End: 65-28-1985Uzidnuj encounter xiilvzizi62/13/2026 2:00 PM EST [facility] [address] [place] [address] Cassius Hendrix MD [address] [facility] [address] [place] [address] [facility] [place] Cee [facility] MedicineStart: 02-44-9536Tlvfowquoj A1c measurementDiabetes: Hemoglobin R6TTLFHHarry S. Truman Memorial Veterans' [facility] Start: 10-05-2025 End: 43-60-8554Jgywojq encounter yundnydmi27/06/2026 11:00 AM EST [facility] [address] [place] [address] Cassius Hendrix MD [address] [facility] [address] [place] [phone] (Work) (Fax)[facility]ITALG[facility] MedicineStart: 18-07-2862FRXTK-19 Vaccine ( season)COVID-19 Vaccine ( season)NOM HealthcareStart: 08-02-2025 End: 18-45-6345Bwqgeng encounter procedureNOMO Collin Cee [facility] MedicineComment on above:Encounter for Medicare annual wellness exam; Advance directive in chart; Encounter for screening for other disorder; Screening for alcohol problem; Screening for osteoporosis; Menopause; PolypharmacyStart: 10-17-2025Medicare Annual Wellness (AWV)Medicare Annual Wellness (AWV)NOM HealthcareStart: 52-97-9603Wbtnajehhx A1c measurement Diabetes: Hemoglobin D8FEFZM HealthcareStart: 07-13-2025 End: 75-34-4963Vgkisag encounter procedureNOMS CI FM 100Comment on above:Chronic pain syndrome; Controlled substance agreement signed; Type 2 diabetes mellitus with stage 3b chronic kidney disease, without long-term current use of insulin (HCC); Polypharmacy; Paroxysmal atrial fibrillation (HCC)Start: 50-40-4092Mxsut screening for protein Diabetes: Urine Protein ScreeningHUNTSMAN MENTAL [facility]ALTH [facility] HealthcareStart: 69-36-3626VTUUZ-19 Vaccine ( season)COVID-19 Vaccine ()[facility] HealthcareStart: 55-89-3342Plphxodmw vaccinationInfluenza Vaccine (#1)[facility] HealthcareStart: 18-73-4182Ncaicspn screeningDiabetes: Retinopathy ScreeningNOMO HealthcareStart: 04-13-2025 End: 32-28-6176Nkuewen encounter procedureNOSHRINERS HOSPITALS FOR CHILDRENS FMStart: 01-19-2025 End: 98-49-7457Xxomnzbopntic metabolic 2000 panel - Serum or PlasmaComprehensive metabolic panel Lab Routine Type 2 diabetes mellitus with stage 3b chronic kidney disease, without long-term current use of insulin ([facility]) ([facility]) Expected: 01/19/2025 (Approximate), Expires: 01/19/2026[facility] Work Phone: Comment on above:Expected: 01/19/2025 (Approximate), Expires: 01/19/2026Start: 01-19-2025 End: 10-90-1171Mwkunmlfdg A1c/Hemoglobin.total in BloodHemoglobin A1c Lab Routine Type 2 diabetes mellitus with stage 3b chronic kidney disease, without long-term current use of insulin ([facility]) ([facility]) Expected: 01/19/2025 (Approximate), Expires: 01/19/2026[facility] HealthcareComment on above:Expected: 01/19/2025 (Approximate), Expires: 01/19/2026Start: 01-19-2025 End: 75-92-8263Owunfet encounter procedureNOMO CI FM 100Comment on above:Chronic pain syndrome; Lumbosacral spondylosis without myelopathy; Controlled substance agreement signed; Polypharmacy; Type 2 diabetes mellitus with stage 3b chronic kidney disease, without long-term current use of insulin (HCC) ([facility])Start: 19-72-3159Pampe screening for proteinDiabetes: Urine Protein ScreeningHUNTSMAN MENTAL [facility]ALTH [facility]STITUTE HealthcareStart: 12-15-2024 End: 00-01-9201Quwlzlu encounter vqmwkttho22/18/2025 9:30 AM EDT Office Visit [facility] [address] [place] [phone] Jose Maddox, REBECCA [address] [place] [id number] [facility] FMStart: 11-18-2024 End: 35-19-9536Miczgoo encounter fdqlkrhol53/19/2025 1:30 PM EST Office Visit [facility] [address] [place] [address] [facility] AUDStart: 10-28-2024 End: 09-79-3169Cylczrxqvz A1c/Hemoglobin.total in BloodHemoglobin A1c Lab Routine Type 2 diabetes mellitus with stage 3b chronic kidney disease, without long-term current use of insulin ([facility]) ([facility]) Expected: 10/28/2024 (Approximate), Expires: 10/28/2025[facility] Work Phone: Comment on above:Expected: 10/28/2024 (Approximate), Expires: 10/28/2025Start: 10-28-2024 End: 67-27-4161Izdelmd encounter procedureNOMS CI FM 100Comment on above: Lumbosacral spondylosis without myelopathy; Postural kyphosis of cervicothoracic region; Controlled substance agreement signed; PolypharmacyStart: 10-26-2024 End: 11-00-8890Ujhepgu encounter procedureNOMS CI FM 100Start: 10-21-2024 End: 51-94-9563Htikhtg encounter fygfspkun74/22/2025 2:30 PM EST Office Visit [facility] [address] [place] [id number] [facility] AUDStart: 89-71-1947Jxvwcsyhkz A1c measurementDiabetes: Hemoglobin U0UUJQZ HealthcareStart: 74-64-4799Ccrpkdndp vaccinationInfluenza Vaccine (#1)[facility] HealthcareComment on above:Postponed from 05/31/2024 (Patient Refused)Start: 09-09-2024 End: 33-00-1874Lvljcazg Wtctlmz2309/09/2024 2:00 PM EST Clinical Support [facility] [address] [place] [address] Mariela Shin, [facility] [address] [place] [address] ArrivedNOMS CI AUDComment on above:ArrivedStart: 08-19-2024 End: 45-40-4289Coumueq encounter procedureNOMS CI AUDStart: 07-28-2024 End: 84-88-4846Skcddow encounter procedureNOMS CI FM 100Comment on above:Arrived Start: 07-16-2024 End: 90-26-7806Rqngpyo encounter jkracxcag31/17/2024 2:00 PM EDT Office Visit [facility] [address] [place] [address] Cassius Hendrix MD [address] [place] [address] [facility] FM 100Start: 07-15-2024 End: 83-86-6589Nrhjzcs encounter veusthysw71/16/2024 11:30 AM EDT Office Visit [facility] ENT [address] [facility] [address] [place] [address] Ada Bob MD [address] [facility] [address] [place] [address] N[facility] CI ENTStart: 07-13-2024 End: 34-86-0085Gyoqldun Wjtrqqz7607/13/2024 1:00 PM EDT Clinical Support [facility]UD [address] [facility] [place] [address] Mariela Shin, [facility] [address] [address] [facility] SH AUDStart: 06-16-2024 End: 85-00-9261Shabdho encounter procedureNOJEFFERSON COUNTY [facility] FMComment on above:Arrived Start: 15-21-7670Jnpekwlwf vaccinationInfluenza Vaccine (#1)[facility] Healthcare Start: 72-06-8381HPcB/Tdap/Td Vaccines (2 - Td or Tdap)DTaP/Tdap/Td Vaccines (2 - Td or Tdap)[facility] Immunizations Immunization DateImmunizationNotesCare PlnflsoxXniayths88-15-1165rhutmnqfd, high dose seasonal, preservative-freeCassius Hendrix MD Work Phone: [facility] HospitalUtgursxfov50-46-4175YTA, recombinant, protein subunit RSVpreF, adjuvant reconstitu, 120mcg/0.5mL, PF (Arexvy)[facility] Work Phone: [facility] HospitalKamqtljtcz04-66-5868fzbvvaopp, high dose seasonal, preservative-freeDNorth[facility] Work Phone: [facility] HospitalGpynazskpl72-93-8417ppthrozxr virus vaccine, unspecified formulationGeneric ProviderUniversity HospitalWaygshewom26-44-0450shlxuna toxoid, reduced diphtheria toxoid, and acellular pertussis vaccine, adsorbedBrittmikhail Harpk EARLY CHILDHOOD EDUCATION WORKER Work Phone: [facility] HospitalQwsmaxejsv80-75-2519Wqdejwqlg, Seasonal, Quadrivalent, AdjuvantedSyoselyn Locke MD Work Phone: [facility] HospitalDnlzlquedw67-19-4306vxsoxkdtv virus vaccine, unspecified formulationSyoselyn Locke MD Work Phone: [facility] HospitalQnrxzzcift71-22-6076Pkfljdg SARS-CoV-2 Booster VaccinationSyoselyn Locke MD Work Phone: [facility] HospitalJfmdkqrlve18-33-2661Dxwoooyht, High-dose Seasonal, Quadrivalent, Preservative FreeShaikh Chucky FITZPATRICK Work Phone: University HospitalSsteognyyj16-59-5267KKRK-VcI-7, UnspecifiedShaikh Chucky FITZPATRICK Work Phone: [facility] HospitalYtnkxduxwt47-95-7044Zthefbcav, High-dose Seasonal, Quadrivalent, Preservative Kylie Locke MD Work Phone: [phone] HospitalJhshhrxlmv89-68-7985Unltxaqut, Seasonal, Quadrivalent, AdjuvantAmnadeep Locke MD Work Phone: [phone]-[address] [place], [place] [address]Azzqekfkvd26-36-4485kkxugvnjdinm conjugate vaccine, 13 valentSyoselyn Locke MD Work Phone: [phone]-[address] [place], [place] [address]Watnxygleg92-83-1681hfxihlfru, seasonal, injectable, preservative Kylie Locke MD Work Phone: [phone]-[address] [place], [place] [address]Hrlkegcfch43-98-3078hfbtyijzd, injectable, quadrivalent, preservative Kylie Locke MD Work Phone: [phone]-[address] [place], [place] [address]Sldywpevag92-02-9775Zwuhqhhfj, Seasonal, Quadrivalent, AdjuvantedSyoselyn Locke MD Work Phone: [phone] [place], [place] [address]Oqcohzracz77-26-1530okkcrzsnm, injectable, quadrivalent, preservative Kylie Locke MD Work Phone: [phone] [place], [place] [address]Jzlhwpsznw37-53-4225Bqmelayo trivalent influenza vaccine, adjuvanted, preservative Kylie Locke MD Work Phone: [phone] [place], [place] [address]Lkldowhxna24-13-0446racunu vaccine recombinant Shaikh Chucky FITZPATRICK Work Phone: [phone] [place], [place] [address]Geicbqdehx57-33-8809xrbxrd vaccine recombinant Shaikh Chucky FITZPATRICK Work Phone: [phone] [place], [place] [address]Ekxarlvpcf16-97-8895ksapukoyr, injectable, quadrivalent, preservative Kylie Locke MD Work Phone: [facility] HospitalSqkcsuslgd28-30-0801ypqeijfvq, high dose seasonal, preservative-Kylie Locke MD Work Phone: [phone] [place], [place] [address]Uqxwdyyhpr78-77-8832Qcaigcixs, High-dose Seasonal, Quadrivalent, Preservative Kylie Locke MD Work Phone: [phone] [place], [place] [address]Soqjnmulhj36-27-3608gueazbbxe, high dose seasonal, preservative-Kylie Locke MD Work Phone: [phone] [place], [place] [address]Rnrzwdxvrk37-40-1261kkkrdwjod, high dose seasonal, preservative-Kylie Locke MD Work Phone: [phone] [place], [place] [address]Vpnvekvull14-37-7931oghqaobdryay conjugate vaccine, 13 Alexandria Locke MD Work Phone: [phone] [place], [place] [address]Sapfrssypm79-50-0007uixhovmyklgu conjugate vaccine, 13 Alexandria Locke MD Work Phone: [phone] [place], [place] [address]Xskzyqiwdc10-51-6851kyvueggx influenza, intradermal, preservative Kylie Locke MD Work Phone: [phone] [place], [place] [address]Ynyhjogrob34-11-0318krrsqplvj, high dose seasonal, preservative-freeShaikh Chucky FITZPATRICK Work Phone: [phone] [place], [place] [address]Ifrlbspyus75-48-6517prhwnuguelao polysaccharide vaccine, 23 Alexandria Locke MD Work Phone: [phone] [place] [address] Payers DatePayer CategoryPayerPolicy [id number]-pay2022MedicareANTHEM MEDICARE ADVANTAGE ANTHEM MEDICARE ADVANTAGE [id number] 2021-Present [address] [place] [id number] 2022Medicare (Managed Care)ANTHEM MEDICARE ADVANTAGE [id number] [id number] 2.840.1.768983.3.57[id number] 2.840.1.717389.3.57[id number] 2.0.1.821892.3.57[id number] 2.840.1.622303.3.57[id number] 2.840.1.159451.3.57[id number] 2.0.1.498158.3.579.[id number] 2.840.1.692957.3.57[id number] 2.840.1.123232.3.57[id number] 2.840.1.578625.3.57[id number] 2.840.1.613439.3.57[id number] 2.840.1.884046.3.57[id number] 2.840.1.953320.3.579.[id number] 2.16.840.1.885333.3.579.[id number] 2.16.840.1.053998.3.57[id number] 2.840.1.218372.3.57[id number] 2.16840.1.587140.3.57[id number] 2.840.1.634090.3.57[id number] 2.840.1.717408.3.579.2.[id number] 2.840.1.551072.3.57[id number] 2..840.1.290325.3.57[id number] 2.840.1.939576.3.57[id number] 2.840.1.907617.3.579.2.3526NbmvbmfHl[id number] 2.840.1.320569.3.579.2.531 Social History DateTypeDetailFacilityStart: 01-31-2023 End: 31-14-4004Hzgakzn smoking status NHISNever smoked tobaccoNOMS Healthcare Start: 01-31-2023 End: 96-65-0479Wqgachl use and exposureSmokeless tobacco non-userNOMS Healthcare Start: 06-16-2024 End: 06-31-7529Xwmqgqkfy beverage intakeLifetime non-drinker (finding)[facility] HealthcareStart: 02-18-2023 End: 86-26-5308Hzbsxjb of Social functionNOMS HealthcareStart: 02-18-2023 End: 79-77-8847C4228 Health LiteracyNOMO HealthcareStart: 56-29-6757Dim often do you need to have someone [...] to pay the mortgage or rent on time?YesNOMO HealthcareStart: 01-31-2023 Alcohol CommentcaffeineNOMO HealthcareStart: 65-88-5582Luw assigned at birthNot on fileNOMO HealthcareHow hard is it for you to pay for the very basics like food, housing, medical care, and heatingNot very hardNOMS HealthcareHow often do you need to have someone help you when you read instructions, pamphlets, or other written material from your doctor or pharmacy [SILS]SometimesNOMS HealthcareAre you now , , , , never or living with a partner?WidowedNOMO HealthcareNEGATED: Highlighted rowStart: DAVIDF History of tobacco usePassive smokerN[facility]O Healthcare Medical Equipment Procedure CodeEquipment CodeEquipment Original TextEquipment IdentifierDates1 each by Other route in the morning and 1 each in the evening and 1 each before bedtime.[id number]: 06-16-2024 End: 11-24-4098GCV TO TEST BLOOD SUGAR ONCE [id number]: 22-10-8440Umybj BS bid [id number]: 09-68-4306Zyeqc BS bid [id number]: 10-28-2024 Functional Status TpoqUkfirmlyviVbmjyjTzezbjye32-89-5603Odqdalp Health Questionnaire 2 item (PHQ- 2) [Reported][facility] HospitalPkbxxcgsxa63-17-9385Swxct score [AUDIT-C]0 06/16/2024 9:02 AM EDT Mychart, GenericUniversity HospitalRdgvfadrjm66-86-5865Naj often do you have a drink containing alcohol?Never 06/16/2024 9:02 AM EDT Mychart, Generic NeverUniversity HospitalJtpyxqudcg40-37-3808Qcneyibyqf statusPatient does not drink 06/16/2024 9:02 AM EDT Mychart, Generic Patient does not drinkUniversity HospitalQgezmritmd66-68-8272Wws often do you have 6 or more drinks on 1 occasion?Never 06/16/2024 9:02 AM EDT Mychart, Generic [facility] HospitalVpfoedakgd42-82-0330Srlqxlf Health Questionnaire 2 item (PHQ- 2) [Reported][facility] Clinical Notes 01-22-2023 to 07-13-2025 Note Date & ElxbTpdcItvdeqdx82-47-7406 History of Present illness Narrative* Cassius Hendrix [...] 40 MG tablet Blood Glucose Monitoring Suppl (BlackLight Power Verio) w/Device kit Check BS bid prn [...] mg by mouth if needed glucose blood (Travelzen.comuch VerZippy.com.au Pty LTD) test strip Check BS bid prn 100 strip 3 HYDROcodone-acetaminophen (Uledi) 5-325 MG tablet Take 1 tablet by mouth Daily as needed for severepain or moderate pain 30 tablet 0 HYDROcodone-acetaminophen (Uledi) 5-325 MG tablet Take 1 tablet by mouth Daily as needed for moderate pain Do not start before June 12, 2025. 30 tablet 0 HYDROcodone-acetaminophen (Uledi) 5-325 MG tablet Take 1 tablet by mouth Daily as needed for severepain Do not start before May 13, 2025. 30 tablet 0 Lancets (Travelzen.comuch Delica Plus Vdhwyw79A) misc Check BS bid prn 100 each [...] try this for 1 week. - HYDROcodone-acetaminophen (Uledi) 5-325 MG tablet; Take 1 tablet by mouth Daily as needed for moderate pain Do not start before September 11, 2025. Dispense: 30 tablet; Refill: 0 - HYDROcodone-acetaminophen (Uledi) 5-325 MG tablet; Take 1 tablet by mouth Daily as needed for severe pain Do not start before August 12, 2025. Dispense: 30 tablet; Refill: 0 - HYDROcodone-acetaminophen (Uledi) 5-325 MG tablet; Take 1 tablet by [...] substitutions may have occurred. documented in this encounterUniversity HospitalMfrkusuveo77-43-0431 NoteUT Electrophysiology Consult Note [place] [facility] Reason for visit: Afib 07/06/2025 Patient [...] Date Abnormal ECG CHF (congestive heart failure) ([facility]) Conduction disorder of the heart Coronary artery disease Heart valve disease Hyperlipidemia Hypertension NSVT (nonsustained ventricular tachycardia) ([facility]) Primary cardiomyopathy ([facility]) PSH: Past Surgical History: Procedure Laterality Date CORONARY ARTERY BYPASS GRAFT 04/14/2013 INSERT / REPLACE / REMOVE PACEMAKER SH: Social Drivers of Health Tobacco Use: Low Risk (07/06/2025) Patient History Smoking Tobacco Use: Never Smokeless Tobacco Use: Never Passive Exposure: Not on file Alcohol Use: Not At Risk (06/16/2024) [facility] AUDIT-C Frequency of Alcohol Consumption: Never Average Number of Drinks: Patient does not drink Frequency of Binge Drinking: Never Financial Resource Strain: Low Risk (06/16/2024) [facility] Overall Financial Resource Strain (CARDIA) Difficulty of Paying Living Expenses: Not hard at all Food Insecurity: No Food Insecurity (06/24/2024) Received from [facility] Hunger Screening Within the past 12 months we worried whether our food would run out before we got money to buy more.: Never True Within the past 12 months the food we bought just didn't last and we didn't have money to get more.: Never True Transportation Needs: No Transportation Needs (06/16/2024) [facility] PRAPARE - Transportation Lack of Transportation (Medical): No Lack of Transportation (Non-Medical): No Physical Activity: Inactive (06/16/2024) Re[facility] from [facility] Exercise Vital Sign Days of Exercise per Week: 0 days Minutes of Exercise per Session: 0 min Stress: No Stress Concern Present (06/16/2024) [facility] [place] [employer] - Occupational Stress Questionnaire Feeling of Stress : Not at all Social Connections: Unknown (04/01/2025) Re[facility] from [facility] Social Connection and Isolation Panel [NHANES] Frequency of Communication with Friends and Family: Not on file Frequency of Social Gatherings with Friends and Family: Not on file Attends Mormonism Services: Not on file Active Member of Clubs or Organizations: Not on file Attends Club or Organization Meetings: Not on file Marital Status: Recent Concern: Social Connections - Moderately Isolated (04/01/2025) Re[facility] from [facility] Social Connection and Isolation Panel [NHANES] Frequency of Communication with Friends and Family: Twice a week Frequency of Social Gatherings with Friends and Family: Twice a week Attends Mormonism Services: More than 4 times per year [...] Depression: Not at risk (07/14/2024) Re[facility] from [facility] PHQ-2 Patient Health Questionnaire-2 Score: 0 Housing Stability: Unknown (06/16/2024) Re[facility] from [facility] Housing Stability Vital Sign Unable to Pay for Housing in the Last Year: No Number of Times Moved in the Last Year: Not on file Homeless in the Last Year: No Utilities: Not on file Health Literacy: Inadequate Health Literacy (06/16/2024) Received from [facility] [employer] B1300 Health Literacy Frequency of need for help with medical instructions: Sometimes Allergies: Allergies Allergen Reactions C (more content not included)...[facility]07-15-2025 History of Present illness Narrative* Cassius Hendrix [...] mouth Daily OTC Blood Glucose Monitoring Suppl (BlackLight Power Verio) w/Device kit Check BS bid prn [...] mg by mouth if needed glucose blood (Travelzen.comuch Verio) test strip Check BS bid prn 100 strip 3 HYDROcodone-acetaminophen (Uledi) 5-325 MG tablet Take 1 tablet by mouth Daily as needed for severepain 30 tablet 0 HYDROcodone-acetaminophen (Uledi) 5-325 MG tablet Take 1 tablet by mouth Daily as needed for severepain or moderate pain 30 tablet 0 HYDROcodone-acetaminophen (Uledi) 5-325 MG tablet Take 1 tablet by mouth Daily as needed for moderate pain 30 tablet 0 Lancets (Travelzen.comuch Delica Plus Szwaei05K) misc Check BS bid prn 100 each 3 lisinopril 2.5 MG tablet Hold if systolic is 100 or less OneThoundsuch Ultra test strip USE TO TEST BLOOD [...] 2:10 PM Appears as expected. - HYDROcodone-acetaminophen (Uledi) 5-325 MG tablet; Take 1 tablet by mouth Daily as needed for severe pain or moderate pain Dispense: 30 tablet; Refill: 0 - HYDROcodone-acetaminophen (Uledi) 5-325 MG tablet; Take 1 tablet by mouth Daily as needed for moderate pain Do not start before June 12, 2025. Dispense: 30 tablet; Refill: 0 - HYDROcodone-acetaminophen (Uledi) 5-325 MG tablet; Take 1 tablet by [...] without long- term current use of insulin ([facility]) Labs reviewed Hemoglobin A1c to goal. Continue [...] 90 tablet; Refill: 3 documented in this [facility]06-12-2025 Telephone encounter Note* Telephone Encounter - Chari Tate - 03/11/2025 3:23 PM EDT Lillian Patten called back. She stated the pharmacy did have 1 more fill for them but stated that was the last one. University HospitalDdvroiifvi55-20-1751 Miscellaneous Notes* Telephone Encounter - Chari Tate [...] she will call back. documented in this [facility]06-12-2025 Telephone encounter Note* Telephone Encounter - Chari Tate - 03/11/2025 11:15 AM EDT Spoke to Daughter and she will call the pharmacy and see if she is able to get that straightened out. If they do not have anything, she will call back. [facility] Pwpxhcgalj52-57-0286 NoteUT Cardiology - [facility] Subjective Daysi De Leon is a 89 y.o. [...] an area of anteroseptal and inferolateral prior [place]. Update 09/01/2018: She is seen in follow [...] discussion regarding upgrade of her pacemaker to APPLICATION DEVELOPMENT PROJECT MANAGER-D device. She met with him and he [...] physical activities that sh (more content not included)...[facility]04-22-2025 History of Present illness Narrative* Cassius Hendrix [...] mouth Daily OTC Blood Glucose Monitoring Suppl (TheMarkets) w/Device kit Check BS bid prn 1 [...] mg by mouth if needed glucose blood (Travelzen.comuch Verio) test strip Check BS bid prn 100 strip 3 HYDROcodone-acetaminophen (Uledi) 5-325 MG tablet Take 1 tablet by mouth Daily as needed for moderate pain 30 tablet 0 HYDROcodone-acetaminophen (Uledi) 5-325 MG tablet Take 1 tablet by mouth Daily as needed for severepain 30 tablet 0 HYDROcodone-acetaminophen (Uledi) 5-325 MG tablet Take 1 tablet by mouth Daily as needed for severepain or moderate pain 30 tablet 0 Lancets (OneTouch Delica Plus Irpmwt97Q) misc Check BS bid prn 100 each [...] regular review and prescribing optimization. - HYDROcodone-acetaminophen (Uledi) 5-325 MG tablet; Take 1 tablet by mouth Daily as needed for severe pain Dispense: 30 tablet; Refill: 0 - HYDROcodone-acetaminophen (Uledi) 5-325 MG tablet; Take 1 tablet by mouth Daily as needed for severe pain or moderate pain Dispense: 30 tablet; Refill: 0 - HYDROcodone-acetaminophen (Uledi) 5-325 MG tablet; Take 1 tablet by [...] long- term current use of insulin (HCC) ([facility]) Chronic problem, unstable, not to goal. After [...] of evaluation and management. documented in this [facility]03-20-2025 Telephone encounter Note* Telephone Encounter - Cassius Hendrix MD - 12/17/2024 2:19 PM EDT Prescription already sent University HospitalRsnutjbxmx05-19-7348 Miscellaneous Notes* Telephone Encounter - Cassius Hendrix MD - 12/17/2024 2:19 PM EDT Prescription already sent documented in this [facility]02-19-2025 History of Present illness Narrative* Charlotte Blackmon MA - 11/18/2024 1:30 PM EST Patient was in today as a follow up to hearing aids which she upgraded to premium technology at last appointment. Patient feels she is hearing well and had no questions or concerns. Patient will continue as needed. Cosigned by RENEE Lopez at 11/18/2024 2:54 PM EST documented in this encounterUniversity HospitalDrexugslsi05-37-2340 History of Present illness Narrative* Cassius Hendrix [...] mg by mouth in the morning. Lancets (Pixtronixtouch ultrasoft) lancets 1 each by Other route [...] by mouth in the morning. [DISCONTINUED] HYDROcodone-acetaminophen (Uledi) 5-325 MG tablet Take 1 tablet by [...] Appears as expected. COMM reviewed - HYDROcodone-acetaminophen (Uledi) 5-325 MG tablet; Take 1 tablet by mouth Daily as needed for moderate pain Dispense: 30 tablet; Refill: 0 - HYDROcodone-acetaminophen (Uledi) 5-325 MG tablet; Take 1 tablet by mouth Daily as needed for severe pain Dispense: 30 tablet; Refill: 0 - HYDROcodone-acetaminophen (Uledi) 5-325 MG tablet; Take 1 tablet by [...] long- term current use of insulin (HCC) ([facility]) Chronic problem, historically stable. I did review [...] Refill: 3 - Lancets (OneTouch Delica Plus Fwumyn66F) misc; Check BS bid prn Dispense: 100 [...] assign the correct physicians. documented in this encounterUniversity HospitalQvwyjucuey26-85-4473 History of Present illness Narrative* Charlotte Blackmon MA - 10/21/2024 2:30 PM EST Patient was in today to complete the hearing aid exchange and she was fit with [employer] Pure C&G 7IX hearing aids which she obtained through [facility]. Patient is upgrading from [facility] 513 to premium aids. Patient is an experienced hearing aid wearer. Patient aids were coupled to 1M receivers with a smallpower dome in the right ear and an XS power dome in the left ear. Patient felt she heard well but there was noticeable feedback from the right ear. I did complete feedback lead case manager and advised the patient that a custom earmold in the right ear might be advisable. Patient does not use a smart phone. She was scheduled for a follow up in approx one month. Cosigned by RENEE Lopez at 10/23/2024 12:31 PM EST documented in this encounterUniversity HospitalUdovzbbliv08-84-3282 NoteUT Cardiology [facility] Subjective Daysi De Leon is a [...] an area of anteroseptal and inferolateral prior [place]. Update 09/01/2018: She is seen in follow [...] discussion regarding upgrade of her pacemaker to APPLICATION DEVELOPMENT PROJECT MANAGER-D device. She met with him and he [...] much in ter (more content not included)... [facility]12-11-2024 History of Present illness Narrative* RENEE Lopez - 09/09/2024 2:00 PM EST Hearing Aid check: Pt is not hearing well with her aids and decided to upgrade to premium aids. She returned her aids today. Processed exchange in Compliance Assurance Portal and gave pt's daughter [facility] A/R number for payment. ScheduledHAF 10-21-24 documented in this encounterUniversity HospitalCsftvelfxh84-32-8629 NoteUT Electrophysiology Consult Note [place] [facility] Reason for visit: Afib HPI: Daysi [...] Tobacco Use: Low Risk (06/16/2024) [facility] Patient History Smoking Tobacco Use: Never Smokeless Tobacco Use: Never Passive Exposure: Never Alcohol Use: Not At Risk (06/16/2024) [facility] AUDIT-C Frequency of Alcohol Consumption: Never Average Number of Drinks: Patient does not drink Frequency of Binge Drinking: Never Financial Resource Strain: Low Risk (06/16/2024) [facility] Overall Financial Resource Strain (CARDIA) Difficulty of Paying Living Expenses: Not hard at all Food Insecurity: No Food Insecurity (06/24/2024) Received from [facility], [facility] Hunger Screening Within the past 12 months we worried whether our food would run out before we got money to buy more.: Never True Within the past 12 months the food we bought just didn't last and we didn't have money to get more.: Never True Transportation Needs: No Transportation Needs (06/16/2024) [facility] - Transportation Lack of Transportation (Medical): No Lack of Transportation (Non-Medical): No Physical Activity: Inactive (06/16/2024) [facility] Exercise Vital Sign Days of Exercise per Week: 0 days Minutes of Exercise per Session: 0 min Stress: No Stress Concern Present (06/16/2024) [facility] [place] [facility] Occupational Health - Occupational Stress Questionnaire Feeling of Stress : Not at all Social Connections: Moderately Integrated (06/16/2024) [facility] Social Connection and Isolation Panel [NHANES] Frequency of Communication with Friends and Family: Twice a week Frequency of Social Gatherings with Friends and Family: Twice a week Attends Mormonism Services: More than 4 times per year Active Member of Clubs or Organizations: No Attends Club or Organization Meetings: Never Marital Status: Intimate Partner Violence: Unknown (11/21/2023) [place] Safety & Environment Fear of Current or Ex-Partner: Not on file Emotionally Abused: Not on file Physically Abused: Not on file Sexually Abused: Not on file Physically or Sexually Abused: Not on file Depression: Not at risk (06/16/2024) [facility] PHQ-2 Patient Health Questionnaire-2 Score: 0 Housing Stability: Unknown (06/16/2024) [facility] Housing Stability Vital Sign In the last 12 months, was there a time when you were not able to pay the mortgage or rent on time?: No Number of Times Moved in the Last Year: Not on file At any time in the past 12 months, were you homeless or living in a mcfp (including now)?: No Utilities: Not on file Health Literacy: Inadequate Health Literacy (06/16/2024) [facility] B1300 Health Literacy How often do [...] UT) tablet Take 1 (more content not included)...[facility]11-20-2024 History of Present illness Narrative* Charlotte Blackmon [...] 09/01/2024 9:35 AM EST documented in this encounterUniversity [id number] History of Present illness Narrative* Cassius Hendrix [...] and occurs every day. Shehas been on Uledi and they told her she could take [...] mg by mouth in the morning. HYDROcodone-acetaminophen (Uledi) 5-325 MG tablet Take 1 tablet by [...] regular review and prescribing optimization. - HYDROcodone-acetaminophen (Uledi) 5-325 MG tablet; Take 1 tablet by [...] of evaluation and management. documented in this [facility]10-23-2024 History of Present illness Narrative* Charlotte Blackmon MA - 07/22/2024 1:00 PM EDT Patient was in today to be fit with a Vanderdroid 513RIC LI T hearing aid that she obtained using her Compliance Ass[employer] benefit. Patient is an experienced hearing aid wearer. Patient was shown the hand cloth folder and maintenance tasks. Patient aids were coupled [...] 07/24/2024 9:32 AM EDT documented in this [facility]10-17-2024 History of Present illness Narrative* Cassius Hendrix [...] as PCP - SANDRA Kerns MA as Ticketing Clerk (Family Medicine) Devin Cole MD as Computer Engineering Professor (Family Medicine) Saurav Girard MD (Ophthalmology) Medicare [...] Yes Vision Screening: Yes, patient sees regular deadener/welding instructor Hearing Screening: Yes, uses hearing aids Cognitive [...] Do you have a medical power of deputy commonwealth's attorney?: No Objective : BP 120/70 Pulse [...] through a living will, durable power of deputy commonwealth's attorney for healthcare, or other advanced directives. [...] and comanaged with Cardiology. 10. Atherosclerosis 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 pectoris (CMS/HCC) Chronic problem currently asymptomatic. Monitor longitudinally and comanaged with Cardiology. 11. 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) Chronic problem currently asymptomatic. Monitor longitudinally 12. Type 2 diabetes mellitus with stage 3b chronic kidney disease, without long- term current use ofinsulin (HCC) (CMS/HCC) Chronic problem currently asymptomatic. Monitor longitudinally 13. Mixed hyperlipidemia ([facility]/HCC) Chronic problem currently asymptomatic. Monitor longitudinally Electronically signed by Cassius Hendrix MD on July 28, 2024 documented in this encounterUniversity [id number] Telephone encounter Note* Telephone Encounter - Kerrie Bob - 07/14/2024 8:54 AM EDT Pt is scheduled with Dr Bob 07/15/24. [facility] [id number] Miscellaneous Notes* Telephone Encounter - Kerire Bob - 07/14/2024 8:54 AM EDT Pt [...] is indicated. Thanks Clarisse documented in this encounterUniversity [id number] Telephone encounter Note* Telephone Encounter - Ada Bob MD - 07/14/2024 7:53 AM EDT Pt needs appt to F/U audio [facility] [employer] Work Phone: 1(584) 579-568010-14-2024 Telephone encounter Note* Telephone Encounter - RENEE [...] further follow up is indicated. Thanks Clarisse [facility] [employer] Work Phone: 1(227) 594-262710-14-2024 History of Present illness Narrative* RENEE Lopez - 07/13/2024 1:00 PM EDT History: Pt has hearing aid benefit through [facility]. She is experienced hearing aid user [...] tinnitus. 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 Sheis interested in Advanced LIANET aids and will owe [facility] $250. Gave her daughter the AR number for [facility] so she can call in the payment. Pt chose [facility] and needs 1M receivers. Will place order in portal today. Pt scheduled for HAF 08-19-24 in the [facility] documented in this encounterUniversity [id number] History of Present illness Narrative* Jose Maddox NP - 06/16/2024 12:17 PM EDTAssociated Problem(s): Stage 3b chronic kidney disease (HCC) ([facility]) Lisinopril and Jardiance Follows nephrology: Most recent GFR: 42 Creatinine: 1.24 Avoid nephrotoxic agents * Jose Maddox NP - 06/16/2024 12:16 PM EDTAssociated Problem(s): Type 2 diabetes mellitus with stage 3a chronic kidney disease, without long-term current use of insulin (HCC) ([facility]) Jardiance 10mg Most recent labs: hemoglobin [...] 1.0 - 5.0 2.2 3.3 Resulting Agency [facility] PRO DMII: Education: Check blood sugars [...] Problem List Items Addressed This Visit Hyperlipidemia (CMS/[facility]) Currently taking atorvastatin 40mg Zetia 10mg Most recent lipid panel 03/23- WNL Denies any myalgias. Continue current regimen. Other chronic pain - Primary Relevant Orders Ambulatory referral to Pain Medicine Stage 3b chronic kidney disease (HCC) ([facility]) Lisinopril and Jardiance Follows nephrology: Most recent GFR: 42 Creatinine: 1.24 Avoid nephrotoxic agents Type 2 diabetes mellitus with stage 3a chronic kidney disease, without long-term current use of insulin ([facility]) ([facility]) Jardiance 10mg Most recent labs: hemoglobin [...] Lancets (onetouch ultrasoft) lancets documented in this [facility]09-17-2024 Instructions* Patient Instructions* Jose Maddox NP - [...] TYLENOL 4,000mg PER DAY! documented in this [facility]08-14-2024 Telephone encounter Note* Telephone Encounter - Anabel Glover LPN - 05/13/2024 4:[address] serrano unable to accept at this time University [id number] Miscellaneous Notes* Telephone Encounter - Anabel Glover LPN - 05/13/2024 4:[address] serrano unable to accept at this time * Telephone Encounter - Alina Braswell - 05/05/2024 2:40 PM EDT Patient would like to become new patient with [facility]. They are a noms patient already records are already in system. documented in this encounterUniversity [id number] Telephone encounter Note* Telephone Encounter - Alina Braswell - 05/05/2024 2:40 PM EDT Patient would like to become new patient with [facility]. They are a noms patient already records are already in system. University [id number] NoteCARDIAC STRESS TEST Requesting Physician: Devin Cole [...] LV ejection fraction of 20-34% Atherosclerosis 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 pectoris (CMS/HCC) Chronic systolic [...] Screening for alcoholism documented [facility]* Diagnosis 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)- Primary Routine general medical examination at health care facility Routine general medical examination at a health care facility Other chronic pain Cardiac LV ejection fraction of 20-34% Atherosclerosis 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 pectoris (CMS/HCC) Chronic systolic [...] hearing loss, asymmetrical documented in this encounter [facility] HealthcareEvaluation note* Diagnosis 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)- Primary Routine general medical examination at health care facility Routine general medical examination at a health care facility Other chronic pain Cardiac LV ejection fraction of 20-34% Atherosclerosis 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 pectoris (CMS/HCC) Chronic systolic [...] (CMS/HCC) Chronic systolic heart failure Atherosclerosis 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 pectoris (CMS/HCC) 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) Type 2 diabetes mellitus with stage 3b chronic kidney disease, without long-term current use of insulin (HCC) (CMS/HCC) Mixed hyperlipidemia (CMS/HCC) Mixed hyperlipidemia documented in this encounter [facility] HealthcareEvaluation note* Diagnosis 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)- Primary Routine general medical examination at health care facility Routine general medical examination at a health care facility Other chronic pain Cardiac LV ejection fraction of 20-34% Atherosclerosis 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 pectoris (CMS/HCC) Chronic systolic [...] of repeat prescriptions documented in this encounter [facility] HealthcareEvaluation note* Diagnosis 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)- Primary Routine general medical examination at health care facility Routine general medical examination at a health care facility Other chronic pain Cardiac LV ejection fraction of 20-34% Atherosclerosis 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 pectoris (CMS/HCC) Chronic systolic [...] hearing loss, asymmetrical documented in this encounter [facility] HealthcareEvaluation note* Diagnosis Other chronic pain- Primary 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, without long-term current use of insulin (HCC) (CMS/HCC) Hyperlipidemia, unspecified hyperlipidemia type (CMS/HCC) documented in this encounter [facility]* Diagnosis 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)- Primary Routine general medical examination at health care facility Routine general medical examination at a health care facility Other chronic pain Cardiac LV ejection fraction of 20-34% Atherosclerosis 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 pectoris (CMS/HCC) Chronic systolic [...] hearing loss, asymmetrical documented in this encounter [facility]* Diagnosis Lumbosacral spondylosis without myelopathy- Primary documented in this encounter [facility]* Diagnosis 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)- Primary Routine general medical examination at health care facility Routine general medical examination at a health care facility Other chronic pain Cardiac LV ejection fraction of 20-34% Atherosclerosis 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 pectoris (CMS/HCC) Chronic systolic [...] of repeat prescriptions documented in this encounter [facility]* Diagnosis 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)- Primary Routine general medical examination at health care facility Routine general medical examination at a health care facility Other chronic pain Cardiac LV ejection fraction of 20-34% Atherosclerosis 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 pectoris (CMS/HCC) Chronic systolic [...] insulin (HCC) (CMS/HCC) documented in this encounter [facility] HealthcareEvaluation note* Diagnosis 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)- Primary Routine general medical examination at health care facility Routine general medical examination at a health care facility Other chronic pain Cardiac LV ejection fraction of 20-34% Atherosclerosis 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 pectoris (CMS/HCC) Chronic systolic [...] hearing loss, asymmetrical documented in this encounter [facility]* Diagnosis 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)- Primary Routine general medical examination at health care facility Routine general medical examination at a health care facility Other chronic pain Cardiac LV ejection fraction of 20-34% Atherosclerosis 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 pectoris (CMS/HCC) Chronic systolic [...] insulin (HCC) (CMS/HCC) documented in this encounter [facility] HealthcareEvaluation note* Diagnosis 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)- Primary Routine general medical examination at health care facility Routine general medical examination at a health care facility Other chronic pain Cardiac LV ejection fraction of 20-34% Atherosclerosis 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 pectoris (CMS/HCC) Chronic systolic [...] without long-term current use of insulin (HCC) ([facility]/HCC) Essential hypertension ([facility]/HCC) Unspecified essential hypertension Chronic systolic heart failure (CMS/HCC) Chronic systolic heart failure Stage 3b chronic kidney disease (HCC) ([facility]/HCC) Type 2 diabetes mellitus with stage 3a chronic kidney disease, without long-term current use of insulin (HCC) ([facility]/HCC)- Primary Hyperlipidemia, unspecified hyperlipidemia type (CMS/HCC) Chronic systolic heart failure (CMS/HCC) Chronic systolic heart failure Essential hypertension ([facility]/HCC) Unspecified essential hypertension Fall, subsequent encounter Other chronic pain- Primary Stage 3b chronic kidney disease (HCC) ([facility]/HCC) Type 2 diabetes mellitus with stage 3a chronic kidney disease, without long-term current use of insulin (HCC) ([facility]) Hyperlipidemia, unspecified hyperlipidemia type ([facility]) Chronic constipation- Primary Unspecified constipation Chronic pain syndrome Lumbosacral spondylosis without myelopathy Controlled substance agreement signed Type 2 diabetes mellitus with stage 3b chronic kidney disease, without long-term current use of insulin (HCC) ([facility]) Polypharmacy Issue of repeat prescriptions documented in this encounter [facility]* Diagnosis Stage 3b chronic kidney disease ([facility]-HCC)- Primary Routine general medical examination at health care facility Routine general medical examination at a health care facility Other chronic pain Cardiac LV ejection fraction of 20-34% Atherosclerosis 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 pectoris Chronic systolic heart [...] heart disease Stage 3b chronic kidney disease ([facility]-HCC) 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 [...] Chronic pain syndrome documented in this encounter [facility] HealthcareEvaluation note* Diagnosis Stage 3b chronic kidney disease (CMS-HCC)- Primary Routine general medical examination at health care facility Routine general medical examination at a health care facility Other chronic pain Cardiac LV ejection fraction of 20-34% Atherosclerosis 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 pectoris Chronic systolic heart [...] of insulin (HCC) documented in this encounter [facility] HealthcareEvaluation note* Diagnosis Stage 3b chronic kidney disease (CMS-HCC)- Primary Routine general medical examination at health care facility Routine general medical examination at a health care facility Other chronic pain Cardiac LV ejection fraction of 20-34% Atherosclerosis 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 pectoris Chronic systolic heart [...] of insulin (HCC) documented in this encounter [facility] HealthcareEvaluation note* Diagnosis Stage 3b chronic kidney disease (CMS-HCC)- Primary Routine general medical examination at health care facility Routine general medical examination at a health care facility Other chronic pain Cardiac LV ejection fraction of 20-34% Atherosclerosis 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 pectoris Chronic systolic heart [...] constipation Unspecified constipation documented in this encounter [facility]* Diagnosis Stage 3b chronic kidney disease (CMS-HCC)- Primary Routine general medical examination at health care facility Routine general medical examination at a health care facility Other chronic pain Cardiac LV ejection fraction of 20-34% Atherosclerosis 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 pectoris Chronic systolic heart [...] of repeat prescriptions documented in this encounter [facility] HealthcareReason for referral (narrative)* Consultation (Routine) - Pending ReviewSpecialtyDiagnoses / ProceduresReferred By ContactReferred To Contact Pain Medicine Diagnoses Other chronic pain Procedures [place] OFFICE/OUTPATIENT [facility] 60 MINUTES Jose Maddox NP [address] [place] [phone] Murphy Catalan MD [address] [place] [address] Referral IDStatusReasonStart DateExpiration DateVisits RequestedVisits [id number] Review Specialty Services Required / [facility] Healthcare Summary Purpose Family History No Family [...] and content) DATE CREATED AUTHOR 09/08/2018 [facility] DATE CREATED AUTHOR AUTHOR'S ORGANIZ ATION 01/30/2019 [facility] DATE CREATED AUTHOR AUTHOR'S ORGANIZ ATION 03/16/2021 [facility] DATE CREATED AUTHOR AUTHOR'S ORGANIZ ATION 02/27/2022 [facility] [employer] DATE CREATED AUTHOR AUTHOR'S ORGANIZ ATION 03/08/2023 [facility] DATE CREATED AUTHOR AUTHOR'S ORGANIZ ATION 09/17/2024 [facility] DATE CREATED AUTHOR AUTHOR'S ORGANIZ ATION 04/11/2025 [facility] DATE CREATED AUTHOR AUTHOR'S ORGANIZ ATION 05/25/2025 [facility] DATE CREATED AUTHOR AUTHOR'S ORGANIZ ATION 07/09/2025 [facility] DATE CREATED AUTHOR AUTHOR'S ORGANIZ ATION 07/15/2025 [facility] EPIC Care Teams (unrecognized sec tion and content) Team MemberRelationshipSpecialtyStart DateEnd Date Chuyita Peters MD [address] [place] [address] PCP - Obie MADSEN09/30/21 Ray Banda MD [address] [place] [address] PCP - GeneralFamily Medicine05/07/24 Jose Maddox NP [address] [place] [address] Nurse PractitionerFamily Medicine05/07/24 Adia Pearson LSW Social WorkerFamily Medicine05/26/24Team MemberRelationshipSpecialtyStart DateEnd Date Chuyita Peters MD [address] [place] [address] PCP - Obie MADSEN09/30/21 Ray Banda MD [address] [place] [address] PCP - [facility]Hamilton [facility]05/07/24 Jose Maddox NP [address] [place] [address] Nurse PractitionerHamilton Medical Center05/07/24 Adia Pearson LSW Social WorkerHamilton Medical Center05/26/24Team MemberRelationshipSpecialtyStart DateEnd Date Chuyita Peters MD [address] [place] [address] PCP - Obie [place]09/30/21 Ray Banda MD [address] [place] [phone] PCP - GeneralHamilton Medical Center05/07/24 Jose Maddox NP [address] [place] [address] Nurse PractitionerBoston Nursery For Blind Babies Medicine05/07/24 Adia Pearson LSW Social WorkerHamilton Medical Center05/26/24Team MemberRelationshipSpecialtyStart DateEnd Date Chuyita Peters MD [address], [place] [phone] PCP - Obie [place]09/30/21 Cassius Hendrix MD [address] [place] [phone] (Fax) PCP - GeneralFamily Dquccqpi23/17/24 Adilia Larose LSW Social WorkerFamily Jnaqihte98/17/24 Devin Cole MD [address] [place] [address] CardiologistFamily Utamkfbn13/17/24 Saurav Girard MD [address] [place] [address] Qsvyaiewipfxl54/17/24Team MemberRelationshipSpecialtyStart DateEnd Date Chuyita Peters MD [address], [place] [phone] PCP - Obie [place]09/30/21 Cassius Hendrix MD [address] [place] [phone] (Fax) PCP - GeneralFamily Uogrlnsn37/17/24 Adia Pearson, [facility] Social WorkerFamily Medicine05/26/2410 Adilia Larose LSW Social WorkerFamily Zieskemw06/17/24 Dvein Cole MD [address] [place] [address] CardiologistFamily Uqxjzxql35/17/24 Saurav Girard MD [address] [place] [address] Iyshexzrnkcvz47/17/24Team MemberRelationshipSpecialtyStart DateEnd Date Chuyita Peters MD [address] [place] [address] PCP - Hiko [place]09/30/21 Cassius Hendrix MD [address] [place] [address] (Fax) PCP - GeneralFamily Cbftkqgv65/17/24 Adilia Larose LSW Social WorkerFamily Xbaqctek13/17/24 Devin Cole MD [address] [place] [phone] CardiologistFamily Mvvwgbpv81/17/24 Saurav Girard MD [address] [place] [address] Ipfdeedlaurhq80/17/24Te MemberRelationshipSpecialtyStart DateEnd Date Chuyita Peters MD [address] [place] [address] PCP - Obie [place]09/30/21 Cassius Hendrix MD [address] [place] [address] (Fax) PCP - GeneralFamily Hqkesolg64/17/24 Adilia Larose LSW Social Workermily Xrrvdumt85/17/24 Devin Cole MD [address] [place] [phone] CardiologistFamily Wobauovt94/17/24 Saurav Girard MD [address] [place] [address] Injntnmcvnwkh78/17/24Team MemberRelationshipSpecialtyStart DateEnd Date Chuyita Peters MD [address] [place] [address] PCP - Obie MADSEN09/30/21 Cassius Hendrix MD [address] [place] [address] PCP - GeneralFamily Emlklwmo60/17/24 Adilia Larose LSW Social WorkerFamily Jmpasazi72/17/24 Devin Cole MD [facility] [place] [address] CardiologistFamily Uxyvuoek13/17/24 Saurav Girard MD [address] [place], [place] [phone] Eyhmdqxtjpnyi20/17/24 Suzanna Olmos, RN Registered NurseFamily Pohmudaw27/1/24 Suzanna Olmos, RN Registered NurseFamily Hqfwffur33/6/24Team MemberRelationshipSpecialtyStart Date End Date Chuyita Peters MD [address] [facility] [place] [address] PCP - Obie MADSEN09/30/21 Cassius Hendrix MD [address] [place] [address] (Fax) PCP - GeneralFamily Okrlpszd18/17/24 Adilia Larose LSW Social WorkerFamily Fupyzvzu50/17/24 Devin Cole MD [address] [place] [address] CardiologistFamily Abjmjzlj15/17/24 Saurav Girard MD [address] [place] [address] Ltndgpgyrlael14/17/24 Suzanna Olmos, RN Registered NurseFamily Zxnzabjt18/1/24 Suzanna Olmos, ISABELLE Registered NurseFamily Ziikhbcm92/6/24Team MemberRelationshipSpecialtyStart Date End Date Chuyita Peters MD [address] [place] [address] PCP - Hiko AZ09/30/21 Ray Banda MD [address] [place] [address] PCP - GeneralFamily Medicine05/07/24 Jose Maddox NP [address] [place] [address] Nurse PractitionerFamily Medicine05/07/24 Adia Pearson LSW Social WorkerFamily Medicine05/26/24Team MemberRelationshipSpecialtyStart DateEnd Date Chuyita Peters MD [address] [place] [address] PCP - Obie AZ09/30/21 Ray Banda MD [address] [place] [address] PCP - GeneralFamily Medicine05/07/24 Jose Maddox, REBECCA [address] [place] [address] Nurse PractitionerFamily Medicine05/07/24 Adia Pearson, [facility] Social WorkerFamily Medicine05/26/24Team MemberRelationshipSpecialtyStart DateEnd Date Chuyita Peters MD [address] [place] [address] PCP - Obie AZ09/30/21 Cassius Hendrix MD [address] [place] [address] PCP - GeneralFamily Kvqvubrk02/17/24 Adilia Larose, [facility] Social WorkerFamily Smqjqfcp32/17/24 Devin Cole MD [address] [place] [address] CardiologistFamily Plzumgck05/17/24 Saurav Girard MD [address] [place] [address] Vmdyzlbewnsqe96/17/24 Suzanna Olmos, ISABELLE Registered NurseFamily Etrixeas14/1/24 Suzanna Olmos RN Registered NurseFamily Mvbcfjll63/6/24Team MemberRelationshipSpecialtyStart Date End Date Chuyita Peters MD [address] [place] [address] PCP - Obie MADSEN09/30/21 Cassius Hendrix MD 112 [facility] 100 [place] [address] PCP - GeneralFamily Dejfakof13/17/24 Adilia Larose LSW Social WorkerFamily Qeoormpm17/17/24 Devin Cole MD [address] [place] [address] CardiologistFamily Dfqgjoit45/17/24 [place] [address] [place] [address] Dkdthorlzcykz93/17/24 Suzanna Olmos RN Registered NurseFamily Lutdpgry13/1/24 Suzanna Olmos RN Registered NurseFamily Sefltdrz24/6/24Team MemberRelationshipSpecialtyStart Date End Date Chuyita Peters MD [address], [place] [address] PCP - Obie MADSEN09/30/21 Shaikh Locke MD [address] [facility] [address] PCP - GeneralInternal Medicine Ray Banda MD [address] [place] [address] PCP - [facility]05/07/24 Jose Maddox NP [address] [place] [address] Nurse PractitionerHamilton Medical Center05/07/24Team MemberRelationshipSpecialtyStart DateEnd Date Chuyita Peters MD [address], [place] [address] PCP - Hiko AZ09/30/21 Ray Banda MD [address] [place] [address] PCP - [facility]Hamilton [facility]05/07/24 Jose Maddox, REBECCA [address] [place] [address] Nurse PractitionerHamilton Medical Center05/07/24 Adia Pearson LSW Social WorkerBoston [facility] Blind Bab[facility] Medicine05/26/24Team MemberRelationshipSpecialtyStart DateEnd Date Cassius Hendrix MD [address] [address] [place] [address] (Fax) PCP - GeneralBoston [facility] Vfcnjuxk71/17/24 Shaikh Locke MD [address] [place] [address] PCP - Hiko AZ08/30/24 Adilia Larose LSW Social WorkerFamily Vsprkmmz97/17/24 Devin Cole MD [address] [place] [address] CardiologistFamily Rgphaqfy47/17/24 Saurav Girard MD [address] [place] [address] Muvcqthxmdahs27/17/24 Suzanna Olmos RN Registered NurseFamily Sxwwgjfn70/1/24 Suzanna Olmos RN Registered NurseFamily Clfeaiqm34/6/24Team MemberRelationshipSpecialtyStart Date End Date Cassius Hendrix MD [address] [place] [address] PCP - GeneralFamily Vdtxktek34/17/24 Shaikh Locke MD [address] [place] [address] PCP - Hiko AZ08/30/24 Adilia Larose [facility] Social WorkerFamily Uyfgqbbg44/17/24 Devin Cole MD [address] [place] [address] CardiologistFamily Enuscpwl89/17/24 Saurav Girard MD [address] [place] [address] Qbnbvteqhctrp70/17/24 Suzanna Olmos RN Registered NurseFamily Rzxqdnlb77/1/24 Suzanna Olmos, ISABELLE Registered NurseFamily Hdjiucyi45/6/24Team MemberRelationshipSpecialtyStart Date End Date Cassius Hendrix MD 112 [facility] 100 [place] [address] (Fax) PCP - GeneralFamily Wssvfsrr36/17/24 Adilia Larose MAILROOM ASSISTANT Social WorkerHamilton Medical Center07/16/24 Devin Cole MD [address] [place] [address] CardiologistHamilton Medical Center07/16/24 Saurav Girard MD [address] [place] [address] Cyoedniwqrlfn45/17/24 Suzanna Olmos, ISABELLE Registered NurseFamily Lkjxbbkn36/1/24 Suzanna Olmos, ISABELLE Registered NurseFamily Acaerkiw71/6/24Team MemberRelationshipSpecialtyStart Date End Date Cassius Hendrix MD [address] [address] (Fax) PCP - Generalmily Dauozgov52/17/24 Shaikh Locke MD [address] [place] [address] PCP - Hiko AZ08/30/24 Adilia Larose LSW Social WorkerHamilton [facility] Center07/16/24 eDvin Cole MD [address] [place] [address] (Fax) CardiologistFamily Crjmcxpe98/17/24 [place] [address] [place] [address] Xrcynreyuteio47/17/24 Suzanan Olmos RN Registered NurseFamily Ckqqerfi90/1/24 Suzanna Olmos RN Registered NurseFamily Qjbvoqkw07/6/24Team MemberRelationshipSpecialtyStart Date End Date Cassius Hendrix MD [address] [place] [address] (Fax) PCP - GeneralFamily Uagqmzqa70/17/24 Shaikh Locke MD [address] [place] [address] PCP - Hiko AZ08/30/24 Adilia Larose MAILROOM ASSISTANT Social WorkerFamily Pilsyeza17/17/24 Devin Cole MD [address] [place] [address] (Fax) CardiologistFamily Hijggpjw67/17/24 Saurav Girard MD [address] [place] [address] Uukoyoahkbyvx88/17/24 Suzanna Olmos RN Registered NurseFamily Fmtxduoe20/1/24 Suzanna Olmos RN Registered NurseFamily Yyquhwzl08/6/24Team MemberRelationshipSpecialtyStart Date End Date Cassius Hendrix MD [address] [facility] 100 [place] [address] (Fax) PCP - GeneralFamily Tkfxewvc24/17/24 Shaikh Locke MD [address] [place] [address] PCP - Hiko AZ08/30/24 Adilia Larose [facility] Social WorkerFamily Flrdxcdc39/17/24 Devin Cole MD [address] [place] [address] (Fax) CardiologistFamily Tdclksqe19/17/24 Saurav Girard MD [address] [place] [address] Ikorfwlcqgtfm24/17/24 Suzanna Olmos, ISABELLE Registered NurseFamily Zqvlvqds97/1/24 Suzanna Olmos, ISABELLE Registered NurseFamily Btdqhdfp19/6/24Team MemberRelationshipSpecialtyStart Date End Date Cassius Hendrix MD [address] [address] (Fax) PCP - GeneralFamily Nvrctmyj97/17/24 Adilia Larose [facility] Social WorkerFamily Xbwijzjk45/17/24 Devin Cole MD [address] [place] [address] (Fax) CardiologistFamily Veacfkik48/17/24 Saurav Girard MD [address] [place] [address], [place] [address] Jpvaryuyxutwf83/17/24 Suzanna Olmos RN Registered NurseFamily Peyumkhu55/1/24 Suzanna Olmos RN Registered NurseChi Health Missouri Valleyly Sagcnels33/6/24Team MemberRelationshipSpecialtyStart Date End Date Cassius Hendrix MD [address] [place] [address] (Fax) PCP - GeneralFamily Crhgyrds21/17/24 Shaikh Locke MD [address] [place] [address] PCP - Hiko AZ08/30/24 Adilia Larose [facility] Social WorkerFamily Avklrkjy37/17/24 Devin Cole MD [address] [place] [address] (Fax) CardiologistFamily Kfjhcpqo71/17/24 Saurav Girard MD [address] [place] [address] Rvrzibjzggvqw20/17/24 Suzanna Olmos, ISABELLE [address] [place] [address] Registered NurseFaemerson hospital Thwcrzts09/1/24 Suzanna Olmos RN [address] [place] [address] Registered NurseChi Health Missouri Valleyly Thtdodlj50/6/24Team MemberRelationshipSpecialtyStart Date End Date Cassius Hendrix MD [address] [address] [place] [address] (Fax) PCP - GeneralFamily Pqjjjctu34/17/24 Shaikh Locke MD [address] [place] [address] PCP - Hiko AZ08/30/24 Adilia Larose, [facility] [address] [place] [address] Social WorkerFamily Goudetju34/17/24 Devin Cole MD [address] [place] [address] (Fax) CardiologistFamily Bkcxvbxa39/17/24 Saurav Girard MD [address] [place] [address] Tgjdrpzjhffpe14/17/24 Suzanna Olmos RN [address] [place] [address] Registered NurseFamily Qlforrnn65/1/24 Suzanna Olmos RN [address] [place] [address] Registered NurseFamily Pghrxnfm14/6/24Team MemberRelationshipSpecialtyStart Date End Date Cassius Hendrix MD [address] [address] [place] [address] (Fax) PCP - GeneralFamily Irnhvptx39/17/24 Shaikh Locke MD [address] [place] [address] PCP - Hiko AZ08/30/24 Adilia Larose, MAILROOM ASSISTANT [address] [place] [address] Social WorkerBoston [facility] Ijgvcuyh99/17/24 Devin Cole MD [address] [place] [address] CardiologistBoston [facility] Nsazentg54/17/24 Saurav Girard MD [address] [place] [address] Epjywtzuzfrxi37/17/24 Suzanna Olmos, ISABELLE [address] [place] [address] Registered NurseFamily Cqptkozi62/1/24 Suzanna Olmos, ISABELLE [address] [place] [address] Registered Nursemily Bumiajqr92/6/24Team MemberRelationshipSpecialtyStart Date End Date Cassius Hendrix MD [address] [facility] 100 [place] [address] (Fax) PCP - GeneralFamily Htsudwkb13/17/24 Shaikh Locke MD [address] [place] [address] PCP - Obie AZ08/30/24 Adilia Larose, MAILROOM ASSISTANT [address] [place] [address] Social WorkerBoston [facility] Nzqjxcou10/17/24 Devin Cole MD [address] [place] [address] (Fax) CardiologistFamily Smrevcav44/17/24 Saurav Girard MD [address] [place] [address] Qloidyhpmvfzm73/17/24 Suzanna Olmos RN [address] [place] [address] Registered NurseFamily Wjiaeoiq27/1/24 Suzanna Olmos RN [address] [place] [address] Registered NurseFamily Fesnhmju93/6/24Team MemberRelationshipSpecialtyStart Date End Date Cassius Hendrix MD [address] [place] [address] (Fax) PCP - GeneralFamily Ysviitlf33/17/24 Shaikh Locke MD [address] [place] [address] PCP - Hiko AZ08/30/24 Devin Cole MD [address] [place] [address] (Fax) CardiologistFamily Vwqrthdg49/17/24 [place] [address] [place] [address] Kzlsixyhbpkkm64/17/24 Suzanna Olmos RN [address] [place] [address] Registered Nursemily Zhczevcb25/6/24Team MemberRelationshipSpecialtyStart Date End Date Cassius Hendrix MD [address] [facility] 100 [place] [address] (Fax) PCP - GeneralFamily Jilljeks30/17/24 Shaikh Locke MD [address] [place] [address] PCP - Obie MADSEN08/30/24 Devin Cole MD [address] [place] [address] (Fax) Cardiologistmily Pikbjszl56/17/24 Saurav Girard MD [address] [place] [address] Ngpbtjxrbdvgh49/17/24 Suzanna lOmos, RN [address] [place] [address] Registered NurseHamilton Medical Center08/05/24Te MemberRelationshipSpecialtyStart Date End Date Cassius Hendrix MD [address] [place] [address] (Fax) PCP - GeneralBoston [facility] Usapgjtx27/17/24 Shaikh Locke MD [address] [place] [address] PCP - Obie AZ08/30/24 Adilia Larose LSW [address] [place] [address] Social Workermily Mrofipry82/17/247/ Devin Cole MD [address] [place] [address] (Fax) CardiologistFamily Cieyauiu28/17/24 Saurav Girard MD [address] [place] [address] Sotlfkgxsocbu93/17/24 Suzanna Olmos, ISABELLE [address] [facility] [address] [place] [address] Registered NurseFamily Dqqsaomh86/1/248 Suzanna Olmos RN [address] [facility] [address] [place] [address] Registered NurseFamily Fkrznvbw91/6/24Team MemberRelationshipSpecialtyStart Date End Date Chuyita Peters MD [address] [place] [address] PCP - Hiko AZ09/30/2210 Shaikh Locke MD [address] [place] [address] PCP - GeneralInternal Medicine Ray Bnada MD PCP - GeneralFamily Medicine05/07/2410 Cassius Hendrix MD [address] [address] (Fax) PCP - GeneralFamily Jznxvefd74/17/24 Shaikh Locke MD [address] [place] [address] PCP - Hiko MA08/30/24 Vlad Banuelos LPN Licensed Practical NurseFamily Medicine Jose Maddox, REBECCA Nurse PractitionerFamily Medicine05/07/2410 Adia Pearson, MAILROOM ASSISTANT [address] [place] [address] Social WorkerFamily Medicine05/26/2410 Adilia Larose, MAILROOM ASSISTANT [address] [place] [address] Social WorkerFamily Uwkuyyuv52/17/247 Devin Cole MD [address] [place] [address] CardiologistFamily Upuuqwob96/17/24 Saurav Girard MD [address] [place] [address] Yrmgmmuxlrhyn50/17/24 Suzanna Olmos, ISABELLE [address] [place] [address] Registered NurseFamily Yhlglaun53/1/248 Suzanna Olmos RN [address] [place] [address] Registered NurseFamily Gqfyugum73/6/24Team MemberRelationshipSpecialtyStart Date End Date Csasius Hendrix MD [address] [place] [address] (Fax) PCP - GeneralFamily Bgpifswl45/17/24 Cassius Hendrix MD [address] [place] [address] PCP - Obie AZ05/31/25 Devin Cole MD [address] [place] [address] CardiologistFamily Bvwwixle35/17/24 [place] [address] [place] [address] Luvvwyxgusshw64/17/24 Suzanna Olmos, ISABELLE [address] [facility] 230 [place] [address] Registered NurseFamily Mtgydacp12/6/24 Reason for Visit (unrecogniz ed section and content) ReasonCommentsAnnual ExamReasonCommentsPainReasonCommentsFollow-upReasonComments PainDiabetesReasonOnset DateCommentsMed Dgkizt1603/09/2025ReasonCommentsMed Refill ReasonCommentsConstipationDiabetesPainReasonCommentsDiabetesPain FOR RECORDS PERTAINING TO PATIENTS [...] BE BASED ON THE PRIMARY CLINICAL RECORDS. [employer] provides no warranty or guarantee of the accuracy or completeness of information in this document.
[2025-08-02 12:21] LABS: Anion Gap 16.9; Blood Urea Nitrogen 37.0 mg/dL (7.0-18.0); Calcium 9.6 mg/dL (8.5-10.1); Carbon Dioxide 25.5 mmol/L (21.0-32.0); Chloride 100 mmol/L (98-107); Estimated GFR (African America 46 (>=60 mL/min/1.73m^2); Estimated GFR (Non-African Ame 38 (>=60 mL/min/1.73m^2); Glucose 97 mg/dL (74-106); Potassium 4.4 mmol/L (3.5-5.1); Sodium 138 mmol/L (136-145)
[2025-08-02 12:30] LABS: Hematocrit 44.8 % (36.0-48.0); Hemoglobin 14.7 g/dL (12.0-16.0); Immature Granulocytes Abs Auto 0.01 10^3/uL (0.00-0.03); Immature Granulocytes Pct Auto 0.1 % (0.0-0.5); Lymphocytes Absolute Auto 1.5 10^3/uL (1.2-3.8); Mean Corpuscular HGB Conc 32.8 g/dL (29.9-35.2); Mean Corpuscular Hemoglobin 31.8 pg (26.7-34.0); Mean Corpuscular Volume 97.0 fL (81.0-99.0); Platelet Count 215 10^3/uL (150-450); Red Blood Count 4.62 10^6/uL (4.20-5.40); White Blood Count 7.1 10^3/uL (4.0-11.0)
== END 2025-08-02 11:40 | disposition home or self-care (01) ==
LOC: LAB 11:40
PROVIDERS: PCP Family Medicine; Visit Provider Internal Medicine Cardiovascular Disease
DX: Z01.818 Encounter for other preprocedural examination (principal); E11.22 Type 2 diabetes mellitus with diabetic chronic kidney disease; N18.32 Chronic kidney disease, stage 3b
CPT/HCPCS: 36415; 80048; 82043; 82570; 85025

== ENCOUNTER 2025-08-10 10:09 | Outpatient (OUT) | payer MEDICARE, SELFPAY ==
--- OUTSIDE RECORDS SUMMARY | 2025-08-02 10:30 | XMS_ITS | Encounter Summary ---
Author Organization [facility] Address [address] [place] [address] Care Team Providers Care [place] Division Director Name Role Phone Cassius Patel MD Primary Care Provider [phone] Erasmo Cole MD Unavailable [phone] Saurav Girard MD Unavailable Suzanna Olmos RN Unavailable [phone] Cassius Patel MD Unavailable [phone] Reason for Visit * ReasonCommentsAnnual Exam Encounter Details DateTypeDepartmentCare Team (Latest Contact Info)Uvogyilgxzg27/03/2025 10:30 AM ESTOffice Visit [facility] [place] [facility] 112 [facility] 100 [place] [address] Cassius Patel MD 112 [facility] 100 [place] [address] Encounter for Medicare annual wellness exam (Primary Dx); Advance directive in chart; Encounter for screening for other disorder; Screening for alcohol problem; Type 2 diabetes mellitus with stage 3b chronic kidney disease, without long-term current use of insulin (HCC) Social History Tobacco UseTypesPacks/DayYears UsedDateSmoking Tobacco: NeverPassive Smoke Exposure: NeverSmokeless Tobacco: Never Tobacco Cessation:Counseling Given: Yes Alcohol UseStandard Drinks/WeekCommentsNever0 (1 standard drink = 0.6 oz pure alcohol)[id number] Health LiteracyAnswerDate RecordedHow often do you need to have someone help you when you read instructions, pamphlets, or other written material from your doctor or pharmacy?Vhklbvkqh30/17/2024Humiliation, Afraid, Rape, and Kick questionnaireAnswerDate RecordedWithin the [...] with Friends and FamilyNot on file 04/01/2025ttends Baptism ServicesNot on file04/01/2025tive Member of Clubs or OrganizationsNot on file04/01/2025ttends Club or Organization MeetingsNot on file04/01/2025re you , , , , never , or living with a partner?Aabidwi5804/01/2025UDIT-CAnswerDate RecordedQ1: How often do you have a [...] hard at all06/16/2024HQ-2AnswerDate Recorded Patient Health Questionnaire-2 Lcqqj07210/02/2024[facility] [place] [facility] - Occupational Stress QuestionnaireAnswerDate [...] steady place to sleep or slept in [facility] (including now)?No 02/18/2023Housing Stability Vital SignAnswerDate RecordedIn the last 12 months, was there a time when you were not able to pay the mortgage or rent on time?No 06/16/2024Number of Times Moved in the Last YearNot on file06/16/2024t any time in the past 12 months, were you homeless or living in a care home (including now)? No06/16/2024CommentsNoSex and Gender InformationValueDate RecordedSex Assigned at BirthNot on fileLegal YluDhwuma38/15/2023 6:48 PM EDTGender Identity Not on fileSexual OrientationNot on filedocumented as of this encounter Last Filed Vital Signs Vital SignReadingTime TakenCommentsBlood Sglvdptq041/7608/02/2025 10:41 AM EST Jmzuq134808/02/2025 10:41 AM ESTTemperature--Respiratory Rate--Oxygen Saturation 95%08/02/2025 10:41 AM ESTInhaled Oxygen Concentration--Knpkgl90 kg (141 lb) 08/02/2025 10:41 AM XLXTlhcjc270.6 cm (5' 4 )08/02/2025 10:41 AM ESTBody Mass Index24. 10:41 AM ESTdocumented in this encounter Functional Status * Over the past 2 weeks, how often have you been bothered by any of the following problems?QuestionAnswerDate of AssessmentAuthorLittle interest or pleasure in doing thingsNot at all08/02/2025 10:00 AM Nj DecemberCALE Feeling down, depressed, or hopelessNot at all08/02/2025 10:00 AM NjDecember, MAPatient Health Questionnaire-2 Mzgjs61710/02/2024 10:00 AM Raquel Mauro, CALE * QuestionAnswerDate of AssessmentAuthorTrouble falling or staying asleep, or sleeping too muchNot at all08/02/2025 10:00 AM Chelidecember, MAFeeling tired or having little energyNot at all08/02/2025 10:00 AM NjDecember, MAPoor appetite or overeatingNot at all08/02/2025 10:00 AM Chelidecember, MAFeeling bad about yourself - or that you are a failure or have let yourself or your family downNot at all08/02/2025 10:00 AM Nj, December, MATrouble concentrating on things, such as reading the newspaper or watching television Not at all08/02/2025 10:00 AM NjDecember, MAMoving or speaking so slowly that other people could have noticed? Or the opposite - being so fidgety or restless that you have been moving around a lot more than usual.Not at all 08/02/2025 10:00 AM Nj December, MAThoughts that you would be better off or hurting yourself in some wayNot at all08/02/2025 10:00 AM Nj December, MAPatient Health Questionnaire-9 Itais54110/02/2024 10:00 AM Raquel Mauro, MA documented as of this encounter Progress Notes * Cassius Patel MD - 08/02/2025 10:30 AM EST Images from the original note were not included. Daysi Hood is a 89 y.o. female presents with chief complaint of Annual Exam HPI: History of Present Illness I have reviewed and reconciled the history and medication list with the patient today. CURRENT PCP/CARE TEAM: Patient Care Team: Cassius Patel MD as PCP - General (Family Medicine) Cassius Patel MD as PCP - Obie Cole MD as Machine Binding Folder (Family Medicine) Saurav Girard MD (Ophthalmology) Suzanna Olmos RN as Registered Nurse (Family Medicine) Over the past 2 weeks, how often have you been bothered by any of the following problems? Little interest or pleasure in doing things: Not at all Feeling down, depressed, or hopeless: Not at all Patient Health Questionnaire-2 Score: 0 Over the past 2 weeks, how often have you been bothered by any of the following problems? Trouble falling or staying asleep, or sleeping too much: Not at all Feeling tired or having little energy: Not at all Poor appetite or overeating: Not at all Feeling bad about yourself - or that you are a failure or have let yourself or your family down: Not at all Trouble concentrating on things, such as reading the newspaper or watching television: Not at all Moving or speaking so slowly that other people could have noticed? Or the opposite - being so fidgety or restless that you have been moving around a lot more than usual.: Not at all Thoughts that you would be better off or hurting yourself in some way: Not at all Patient Health Questionnaire-9 Score: 0 Health Risk Assessment Form Do you need help eating, bathing, using the toilet, dressing, or getting around your home?: No Can you prepare your own meals?: Yes Can you do your own housework without help?: Yes Can you shop for groceries or clothes without help?: Yes Do you exercise for about 20 minutes 3 or more days a week?: Yes How confident are you that you can control and manage most of your health problems?: Very confident Can you mange your money, credit cards and accounts, pay bills and taxes?: Yes Vision Screening: Yes, patient sees regular coil tester/network systems engineer Hearing Screening: Yes, uses hearing aids Cognitive Screening Self Assessment: No concerns rasied by family members, friends, or caretakers Three Word Registration: Leader, Season, Table Clock Drawing: Normal Clock - 2 Three Word Recall: 1/3 words correct - 1 Total Score (0-5 Points): 3 Pain Assessment Pain Score: 2 HISTORIES: PAST MEDICAL HISTORY: Medical History[1] SURGICAL HISTORY: Surgical History[2] SOCIAL HISTORY: Social History[3] Depression: Not at risk (08/02/2025) PHQ-2 PHQ-2 Score: 0 FAMILY HISTORY: Family History[4] MEDICATIONS: Current Outpatient Medications Medication Instructions acetaminophen (TYLENOL) 325 mg, Every 6 hours PRN atorvastatin (Lipitor) 40 MG tablet Blood Glucose Monitoring Suppl ([facility] Verio) w/Device kit Check BS bid prn carvedilol (COREG) 3.125 mg, Oral, 2 times daily with meals cholecalciferol (VITAMIN D-3) 1,000 Units, Daily Eliquis 2.5 mg, 2 times daily empagliflozin (JARDIANCE) 10 mg, Oral, Daily ezetimibe (ZETIA) 10 mg, Daily RT furosemide (LASIX) 20 mg, As needed glucose blood ([employer] Verio) test strip Check BS bid prn [START ON 09/11/2025] HYDROcodone-acetaminophen ([place]) 5-325 MG tablet 1 tablet, Oral, Daily PRN [START ON 08/12/2025] HYDROcodone-acetaminophen ([place]) 5-325 MG tablet 1 tablet, Oral, Daily PRN HYDROcodone-acetaminophen ([place]) 5-325 MG tablet 1 tablet, Oral, Daily PRN Lancets ([employer] Delica Plus Upgvop58N) misc Check BS bid prn lisinopril 2.5 MG tablet Hold if systolic is 100 or less [employer] Ultra test strip USE TO TEST BLOOD SUGAR ONCE DAILY senna-docusate (Senexon-S) 8.6-50 MG tablet 1 tablet, Oral, Daily spironolactone (Aldactone) 25 MG tablet 0.5 tablets, Daily ALLERGIES: Allergies[5] PHYSICAL EXAM: Visit Vitals BP 118/76 Pulse 75 Ht 5' 4 Wt 141 lb SpO2 95% BMI 24.20 kg/m?? OB Status Postmenopausal Smoking Status Never BSA 1.7 m?? BP Readings from Last 3 Encounters: 08/02/25 118/76 07/16/24 120/70 06/16/24 112/60 Wt Readings from Last 3 Encounters: 08/02/25 141 lb 07/13/25 142 lb 04/13/25 145 lb Physical Exam The patient is pleasant and [...] regular rate and rhythm without S3, S4. 2/6 systolic, right 2nd interspace, murmur. The patient has normal respiratory pattern. The breath sounds are mildly decreased but symmetrical without evidence of rhonchi or rales. No wheezing. The skin is warm and dry. The lower extremities have trace edema. Neurologic screening exam is nonfocal. The patient is alert. There is no overt gross evidence of cognitive impairment The patient has good eye contact and speech is clear. Appropriate affect. Results ASSESSMENT AND PLAN: Assessment/Plan 1. Encounter for Medicare annual wellness exam [...] discussing health maintenance issues, ordering testing as appropriate,and a schedule was reviewed regarding recommended screening. [...] available to the patient 2. Advance directive in chart They were actually unsure of her DNR status they just new they had some sort of DNR. They did not think any of the boxes were checked on the DNR form that they had on the refrigerator. This is what we have documented however I found this after they had already left. <May 28, 2024, 12:03 - SANDRA Sandoval> Noted pt has DNRCC, signed by Dr. Locke 03/26/24. They are going to go home and check because if she is a DNR ml they need to contact her physician about this before she arrives for surgery. 3. Encounter for screening for other disorder Clinically insignificant depression screening 4. Screening for alcohol problem Negative alcohol screen 5. Type 2 diabetes mellitus with stage 3b chronic kidney disease, without long- term current use of insulin ([facility]) For monitoring for diabetes and care back gap completion. As an addendum after the office visit the results came back and we will notify her that this is negative. - Microalbumin / creatinine urine ratio; Future [1] Past Medical History: Diagnosis Date Arthritis Breast cancer, left breast ([facility]) CAD (coronary artery disease) s/p CABG CKD stage 3 secondary to diabetes ([facility]) on Lisinopril and Jardiance Delivery at term of multiple births ([facility]) Childbirth x6 DM type 2 (diabetes mellitus, type 2) ([facility]) previously on Metformin. Now on Jardiance Glaucoma Hearing difficulty, bilateral Heart disease HFrEF (heart failure with reduced ejection fraction) ([facility]) EF less than 25% Hyperlipidemia Hypertension Myocardial infarction ([facility]) 2012 Pacemaker Pacemaker R side Primary malignant neoplasm of breast ([facility]) 11/30/2015 Weight loss [2] Past Surgical History: Procedure Laterality Date BREAST SURGERY 2000 COLONOSCOPY 2010 CORONARY ARTERY BYPASS GRAFT 2012 triple bypass EYE SURGERY 2023 INSERT / REPLACE / REMOVE PACEMAKER 2013 Pacemaker MASTECTOMY Left 2002 TRICUSPID VALVE SURGERY 2013 Tricuspid Valve Repair [3] Social History Tobacco Use Smoking status: Never Passive exposure: Never Smokeless tobacco: Never Vaping Use Vaping status: Never Used Substance Use Topics Alcohol use: Never Comment: caffeine Drug use: Never [4] Family History Problem Relation Name Age of Onset Heart disease Mother Burns Gillig Heart disease Father Seth Quinones 98 yrs No Known Problems Daughter 6 daughter(s) [5] Allergies Allergen Reactions Cefdinir Other Nitrofurantoin Other documented in this encounter Plan of Treatment DateTypeDepartmentCare Team (Latest Contact Info)Lpymbbejwto29/06/2026 11:00 AM ESTOffice Visit [facility] [place] [facility] 112 [facility] 100 [place] [address] Cassius Patel MD [address] [address] (Fax) documented as of this encounter Visit Diagnoses Diagnosis Encounter for Medicare annual wellness exam- Primary Advance directive in chart Encounter for screening for other disorder Screening for alcohol problem Screening for alcoholism Type 2 diabetes mellitus with stage 3b chronic kidney disease, without long-term current use of insulin (HCC) documented in this encounter Additional Health Concerns AssessmentNoted TimePHQ-9 Depression Total Score: 10:00 AM EST documented as of this encounter Care Teams Team MemberRelationshipSpecialtyStart DateEnd Date Cassius Patel MD [address] [address] (Fax) PCP - GeneralFamily Ofdbkxhk99/17/24 Cassius Patel MD [address] [address] (Fax) PCP - Obie MADSEN05/31/25 Erasmo Cole MD [address] [place] [address] (Fax) CardiologistFamily Qxlzjbsm45/17/24 Saurav Girard MD [address] [place] [address] Hqteyzpeovvry27/17/24 Suzanna Olmos, ISABELLE [address] [place] [address] Registered NurseFamily Nttbotwt99/6/24documented as of this encounter
--- OUTSIDE RECORDS SUMMARY | 2025-08-09 07:01 | XMS_ITS | Encounter Summary ---
Author Organization [facility] Address [address] [place] [address] Care Team Providers Care C Software Engineer Name Role Phone Cassius Patel MD Primary Care Provider [phone] Reason for Referral * (Routine) - Pending ReviewSpecialtyDiagnoses / ProceduresReferred By Contact Referred To Contact Procedures ECG 12 lead Cam Terrell MD [address] [place] [address] Phone: tel: fax: Referral IDStatusReasonStart DateExpiration DateVisits RequestedVisits [id number]/ * (Routine) - Pending ReviewSpecialtyDiagnoses / ProceduresReferred By Contact Referred To Contact Procedures ECG 12 lead Cam Terrell MD [address] [place] [address] Phone: tel: fax: Referral IDStatusReasonStart DateExpiration DateVisits RequestedVisits [id number] [id number]/ Reason for Visit * Auth/Cert (Routine)SpecialtyDiagnoses / ProceduresReferred By ContactReferred To Contact Diagnoses Chronic systolic heart failure (CMS/HCC) Chronic systolic heart failure (CMS/HCC) [I50.22] Procedures NC REMVL PERM PM PLS GEN W/REPL PLSE GEN MULT LEAD NC INSJ ELTRD CAR NATO SYS TM INSJ DFB/PM PLS GEN Biventricular pacemaker upgrade Cam Terrell MD [address] [place] [address] Phone: tel: fax: [facility] Heart counts include 234 beds at the [facility] [place] [facility] [address] [place] [address] Phone: tel: fax: Referral IDStatusReasonStart DateExpiration DateVisits RequestedVisits [id number] Encounter Details DateTypeDepartmentCare Team (Latest Contact Info)Ftoalqtaoch57/10/2025 7:01 AM EST - 08/09/2025 11:47 AM ESTHospital Encounter [facility] [address] [place] [address] Cam Terrell MD [address] [place] [address] Cardiac pacemaker in situ (Primary Dx); Chronic systolic heart failure (CMS/HCC); Abnormal results of cardiovascular function studies Discharge Disposition: Home or Self Care () Social History Tobacco UseTypesPacks/DayYears UsedDateSmoking Tobacco: NeverSmokeless Tobacco: NeverAlcohol UseStandard Drinks/WeekCommentsNot Currently0 (1 standard drink = 0.6 oz pure alcohol)[place] Safety & EnvironmentAnswerDate RecordedFear of Current or Ex-PartnerNot on file11/21/2023Emotionally AbusedNot on file11/21/2023 Physically AbusedNot on file11/21/2023Sexually AbusedNot on file11/21/2023 Physically or Sexually AbusedNot on file11/21/2023CommentsUnknownSex and Gender InformationValueDate RecordedSex Assigned at QubkxRsqvjl26/10/2023 11:11 PM EDTLegal BypBwtcku61/29/2022 11:05 PM EDTGender JagcutibRixjyz23/02/2024 11:11 PM EDTSexual OrientationChoose not to uiatbgel74/04/2025 9:18 PM EDT documented as of this encounter Last Filed Vital Signs Vital SignReadingTime TakenCommentsBlood Oebxphyz489/ 11:30 AM EST Urapj343408/09/2025 11:30 AM ESTTemperature--Respiratory Veuh0636 11:30 AM ESTOxygen Lcokyhuzrf37%08/09/2025 11:30 AM ESTInhaled Oxygen Concentration-- Rwuikw90 kg (141 lb)08/09/2025 7:14 AM WOTOqsjuv320.6 cm (5' 4 )08/09/2025 7:14 AM ESTBody Mass Index24. 7:14 AM ESTdocumented in this encounter Functional Status * QuestionAnswerDate of LlqpmsmtdqZvpgrqIA281 11:30 AM Ladi Chin RNPulse7608/09/2025 11:30 AM Ladi Chin RN * Pain Assessment TimerQuestionAnswerDate of AssessmentAuthorRestart Pain Assessment RdjfhGji45/10/2025 11:30 AM Ladi Chin RN * Sepsis Model ScoresQuestionAnswerDate of AssessmentAuthorEarly Detection of Sepsis Score3.9110/09/2024 11:46 AM ESTChronicles, Batchq * Pain AssessmentQuestionAnswerDate of AssessmentAuthorPain AssessmentNo/denies pain08/09/2025 11:30 AM Ladi Chin RN * QuestionAnswerDate of AssessmentAuthorPulse rate from Plethysmogram (bpm)77 08/09/2025 11:00 AM Ladi Chin RN * Vital SignsQuestionAnswerDate of ObzmdypfnuRhxmzoSJ505/6008/09/2025 11:30 AM Ladi Chin RNPulse7608/09/2025 11:30 AM Ladi Chin RNResp20 08/09/2025 11:30 AM Ladi Chin RNSpO29808/09/2025 11:30 AM Ladi Chin RNMAP (mmHg)6108/09/2025 11:00 AM Ladi Chin RN * RespiratoryQuestionAnswerDate of AssessmentAuthorBilateral Breath Sounds Clear;Tvmnbkoaxn32/10/2025 7:03 AM Ladi Chin RNRespiratory Effort Tzgogvdkb03/10/2025 7:03 AM Ladi Chin RNRespiratory Depth/Rhythm Preidxj0308/09/2025 7:03 AM Ladi Chin RNBreath SoundsBilateral breath sejvax0908/09/2025 7:03 AM Ladi Chin RN * NeurologicalQuestionAnswerDate of AssessmentAuthorLevel of ConsciousnessAlert 08/09/2025 7:03 AM Ladi Chin RNOrientation LevelOriented X4110/09/2024 7:03 AM Ladi Chin RNCognitionAppropriate vnnydofpi85/10/2025 7:03 AM Ladi Chin RNSpeechClear110/09/2024 7:03 AM Ladi Chin RN * Pain AssessmentQuestionAnswerDate of AssessmentAuthorPain AssessmentNo/denies pain08/09/2025 11:30 AM Ladi Chin RN * [place] Suicide Severity Rating ScaleQuestionAnswerDate of AssessmentAuthor1. Have you wished you were or wished you could go to sleep and not wake up?No08/09/2025 7:04 AM Ladi Chin RN2. Have you actually had any thoughts of killing yourself?No08/09/2025 7:04 AM Ladi Chin, ISABELLE6. Have you ever done anything, started to do anything, or prepared to do anything to end your life?No08/09/2025 7:04 AM Ladi Chin RN * Risk of SuicideAnswerDate of AssessmentAuthorNo Risk08/09/2025 7:04 AM Ladi Cintron RN * Modified AldreteQuestionAnswerDate of EwtcwtcltuKopfknRxplikwi841/10/2025 11:31 AM Ladi Chin RNRespiration 11:31 AM Ladi Chin RNCirculation 11:31 AM Ladi Chin RNConsciousness2 08/09/2025 11:31 AM Ladi Chin RNOxygen Byaxpzlqcc269/10/2025 11:31 AM Ladi Chin RNModified Jamila Ygycv1629 11:31 AM Ladi Chin RN documented as of this encounter Mental Status * [place] Agitation Sedation ScaleQuestionAnswerEntry DateAuthorRichmond Agitation Sedation Scale (RASS)- 9:15 AM Marielos Cali RN * Modified AldreteQuestionAnswerEntry HfcoEbvcgvYkdvrjiw200/10/2025 11:31 AM Ladi Cintron RNRespiration 11:31 AM Ladi Chin RN Wmclwetctlb326/10/2025 11:31 AM Ladi Chin RNConsciousness 11:31 AM Ladi Chin RNOxygen Tfoeaauaaf723/10/2025 11:31 AM Ladi Cintron RNModified Jamila Ajfwt2792 11:31 AM Ladi Chin RN documented in this encounter Discharge Instructions * Attachments The following attachments cannot be sent through Care Everywhere. * Moderate Conscious Sedation Adult Care After (Nepali) * Pacemaker Implantation Adult Care After (Nepali) documented in this encounter Medications at Time of Discharge MedicationSigDispense QuantityRefillsLast FilledStart DateEnd Date acetaminophen (Tylenol) 325 mg capsule Take 325 mg by mouth every 6 (six) hours if needed. apixaban (Eliquis) 2.5 mg tablet Indications:Paroxysmal atrial fibrillation (CMS/HCC)Take 1 tablet (2.5 mg) by mouth two times daily. 60 tablet atorvastatin (Lipitor) 40 mg tablet Indications:Coronary artery disease due to lipid rich plaqueTAKE 1 TABLET BY MOUTH AT BEDTIME 90 tablet carvedilol (Coreg) 3.125 mg tablet Indications:Essential hypertensionTake 1 tablet (3.125 mg) by mouth with breakfast and with evening meal. 180 tablet / cholecalciferol (Vitamin D-3) 25 MCG (1000 UT) tablet Take 1 tablet every other day by oral route. doxycycline (Monodox) 100 mg capsule Indications:Cardiac pacemaker in situTake 1 capsule (100 mg) by mouth two times daily for 14 days. Take with at least 8 ounces (large glass) of water, do not lie down for 30 minutes after 28 capsule ezetimibe (Zetia) 10 mg tablet Indications:Coronary artery disease involving tatitlek coronary artery of tatitlek heart without angina pectorisTake 1 tablet (10 mg) by mouth in the morning. 90 tablet HYDROcodone-acetaminophen ([place]) 5-325 mg tablet Take 1 tablet by mouth every 4 (four) hours if needed. Jardiance 10 mg Indications:Chronic systolic congestive heart failure (CMS/HCC)TAKE ONE TABLET BY MOUTH EVERY DAY DIRECTED 90 tablet lisinopril 2.5 mg tablet Indications:Essential hypertensionTake 1 tablet (2.5 mg) by mouth once daily as directed. 90 tablet / sennosides-docusate sodium (Genet-Colace) 8.6-50 mg tablet Take 1 tablet by mouth in the morning./ spironolactone (Aldactone) 25 mg tablet Indications:Edema, unspecified typeTAKE ONE-HALF TABLET BY MOUTH ONCE DAILY DIRECTED. 45 tablet documented as of this encounter H&P Notes * Cam Terrell MD - 08/09/2025 8:19 AM EST Images from the original note were not included. [place] Electrophysiology Consult Note [place] Cardiology [facility] Reason for visit: Afib 08/09/25 Pt here for implant. 07/06/2025 Patient is here today for a follow up appointment and device check. Patient denies chest pain, SOB/PINTO, racing heart/palpitations, fatigue. Patient complains of occasional dizziness/lightheaded, leftleg swelling, Patient had an echocardiogram in January 2025 which revealed EF of 45 to 50% and the last device check in April reveals 100% RV pacing. The device is approaching ANANT and so at this time we will consideradding a septal lead. Review of Systems Cardiovascular: Positive for leg swelling. Musculoskeletal: Positive for back pain. Neurological: Positive for dizziness and light-headedness. HPI: Daysi Hood is a 89 y.o. 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,, hypertension, hyperlipidemia, CKD, diabetes mellitus [...] Drivers of Health Tobacco Use: Low Risk (08/02/2025) Received from [facility] Patient History Smoking Tobacco Use: Never Smokeless Tobacco Use: Never Passive Exposure: Never Alcohol Use: Not At Risk (06/16/2024) Received from [facility] AUDIT-C Q1: How often do you have a drink containing alcohol?: Never Q2: How many drinks containing alcohol do you have on a typical day when you are drinking?: Patientdoes not drink Q3: How often do you have six or more drinks on one occasion?: Never Financial Resource Strain: Low Risk (06/16/2024) Received from [facility] Overall Financial Resource Strain (CARDIA) Difficulty of Paying Living Expenses: Not hard at all Food Insecurity: No Food Insecurity (06/24/2024) Received from [facility] Hunger Screening Within the past 12 [...] from [facility] Exercise Vital Sign On average, how many days per week do you engage in moderate to strenuous exercise (like a brisk walk)?: 0 days On average, how many minutes do you engage in exercise at this level?: 0 min Stress: No Stress Concern Present (06/16/2024) Received from [facility] [place] of Occupational Health - Occupational Stress Questionnaire Feeling of Stress : Not at all Social Connections: Unknown (04/01/2025) Received from [facility] Social Connection and Isolation Panel Frequency of Communication with Friends and Family: Not on file Frequency of Social Gatherings with Friends and Family: Not on file Attends Pentecostalism Services: Not on file Active Member of Clubs or Organizations: Not on file Attends Club or Organization Meetings: Not on file Are you , , , , never , or living with a partner?: Recent Concern: Social Connections - Moderately Isolated (04/01/2025) Received from [facility] Social Connection and Isolation Panel Frequency of Communication with Friends and Family: Twice a week Frequency of Social Gatherings with Friends and Family: Twice a week Attends Pentecostalism Services: More than 4 times per year Active Member of Clubs or Organizations: No Attends Club or Organization Meetings: Never Marital Status: Intimate Partner Violence: Unknown (11/21/2023) [place] Safety & Environment Fear of Current or Ex-Partner: Not on file Emotionally Abused: Not on file Physically Abused: Not on file Sexually Abused: Not on file Physically or Sexually Abused: Not on file Depression: Not at risk (08/02/2025) Received from [facility] PHQ-2 Patient [...] or living in a nursing home (including now)?: No Utilities: Not on file Health Literacy: Inadequate Health Literacy (06/16/2024) Received from [facility] [employer] B1300 Health Literacy Frequency of need for help with medical instructions: Sometimes Allergies: Allergies Allergen Reactions Cefdinir Other Nitrofurantoin Monohyd/M-Cryst Other Weight: 64.9kg Visit Vitals BP 144/60 Pulse 73 Resp 16 Ht 1.626 m (5' 4 ) Wt 64 kg (141 lb) SpO2 100% BMI 24.20 kg/m?? OB Status Postmenopausal Smoking Status Never BSA 1.7 m?? Meds: No current facility-administered medications on file prior to encounter. Current Outpatient Medications on File Prior to Encounter Medication Sig Dispense Refill acetaminophen (Tylenol) 325 mg capsule Take 325 mg by mouth every 6 (six) hours if needed. atorvastatin (Lipitor) 40 mg tablet TAKE 1 TABLET BY MOUTH AT BEDTIME 90 tablet 3 carvedilol (Coreg) 3.125 mg tablet Take 1 tablet (3.125 mg) by mouth with breakfast and with evening meal. 180 tablet 3 cholecalciferol (Vitamin D-3) 25 MCG (1000 UT) tablet Take 1 tablet every other day by oral route. ezetimibe (Zetia) 10 mg tablet Take 1 tablet (10 mg) by mouth in the morning. 90 tablet 3 HYDROcodone-acetaminophen ([place]) 5-325 mg tablet Take 1 tablet by mouth every 4 (four) hours if needed. Jardiance 10 mg TAKE ONE TABLET BY MOUTH EVERY DAY DIRECTED 90 tablet 3 lisinopril 2.5 mg tablet Take 1 tablet (2.5 mg) by mouth once daily as directed. 90 tablet 3 sennosides-docusate sodium (Genet-Colace) 8.6-50 mg tablet Take 1 tablet by mouth in the morning. spironolactone (Aldactone) 25 mg tablet TAKE ONE-HALF TABLET BY MOUTH ONCE DAILY DIRECTED. (Patient taking differently: Take 12.5 mg by mouth in the morning.) 45 tablet 3 furosemide (Lasix) 40 mg tablet Take 1 tablet (40 mg) by mouth every other day. (Patient taking differently: Take 20 mg by mouth in the morning.) 45 tablet 3 [DISCONTINUED] aspirin 81 mg EC tablet Take 81 mg by mouth in the morning. (Patient not taking: No sig reported) [DISCONTINUED] calcium carb,cit-mag cit,ox-D3 300 mg-150 mg- 400 unit tablet as directed Orally [DISCONTINUED] potassium chloride (Klor-Con) 20 mEq packet Take 20 mEq by mouth if needed. (Patientnot taking: No sig reported) Physical Exam: Constitutional General Appearance: well-nourished, well-developed, appears stated age Level of Distress: comfortable Psychiatric Mental Status: alert, normal affect Orientation: oriented to time, place, and person Insight: good judgement Eyes Lids and Conjunctivae: non-injected, no xanthelasma ENMT Ears: no lesions on external ear Nose: no lesions on external nose Oropharynx: no cyanosis, no pallor Neck Neck: supple, trachea midline Carotid Arteries: bilateral normal upstroke, no bruits Jugular Veins: normal jugular venous pressure Thyroid: not enlarged Lungs Respiratory Effort: unlabored Chest Exam: normal curvature, no thoracic deformity Auscultation: clear, no wheezing, no rales, no rhonchi Cardiovascular Rate And Rhythm: regular Heart Sounds: normal S1, normal s2, no gallop Systolic Murmur: not heard Diastolic Murmur: not heard Extremities: no cyanosis, no edema, no peripheral signs of emboli Peripheral Pulses Radial Pulse: normal Abdomen Inspection and Palpation: soft, non distended, no bruit, non tender Musculoskeletal Inspection: no joint swelling Neurologic Gait: normal gait Skin Inspection and Palpation: warm and dry Nails: no clubbing Labs: @LABRESULTS@ No results found for: CHOLESTEROL TOTAL , HDL , LDL CALC , LDL DIRECT , TRIGLYCERIDES , TSH , T3 TOTAL , T4 TOTAL , THYROID PEROXIDASE AB , BNP EKG: Encounter Date: 08/09/25 ECG 12 lead Result Value Ventricular Rate 68 Atrial Rate 68 NC Interval 238 QRS DURATION 168 QT Interval 470 QTC CALCULATION(BAZETT) 499 P Duarte 74 R-Duarte -88 T Wave Duarte 94 Impression Atrial-sensed ventricular-paced rhythm with prolonged AV conduction Abnormal ECG When compared with ECG of 23-APR-2013 06:25, Electronic ventricular pacemaker has replaced Sinus rhythm Confirmed by Cam Terrell ([id number]) on 08/09/2025 8:18:04 AM Echo: 02/23/2025 08/30/23 Stress test: Coronary angiogram: @CATH@ Diagnostic Imaging: No images are attached to the encounter. Assessment and Plan: -Pacemaker in situ: Device is approaching ANANT and will plan for GEN change. Given the 100% RV pacing required will consider adding a septal lead during the time of GEN change. - Persistent atrial fibrillation: Device check performed on May 11, 2025 reveals episodes of A-fib that occurs fairly frequently the longest of which lasted for about 3 hours she is currently tolerating Eliquis 2.5 mg twice daily. If she is unable to tolerate the DOAC then she can go back on aspirin and even consider MIKAL occlusion device. -Cardiomyopathy: Given that repeat echocardiogram done in February 23, 2025 shows EF of 45 to 50%, can consider adding a septal lead. -Diabetes mellitus type 2: Continue home meds -Hypertension: Continue home meds -CAD s/p CABG: Follow-up with cardiology I discussed the procedure in length with figures to the patient and went over the risks, benefits and alternatives. I stated that the risk can be minor complications unless there is need for lead placement. The minor include discomfort over the incision site, erythema. The major complications include vessel injury consisting of AV fistula, pneumothorax, pseudoaneurysm, thromboembolism including DVT stroke systemic emboli endorgan damage and even . We also discussed the possibility of lead induced perforation leading to pericardial effusion or tamponade which may or may not require surgical intervention as well as the possibility of valve damage from entrapment leading to valve regurgitation. Overall the risk of these complications ranged anywhere from 1-5%. Patient verbalized understanding and have agreed to proceed with the procedure aCm Terrell MD Cardiac Electrophysiology [facility] documented in this encounter Procedure Notes * Cam Terrell MD - 08/09/2025 10:21 AM EST Images from the original note were not included. ELECTRONIC TRAIN CONTROL TECHNICIAN-PACEMAKER UPGRADE PROCEDURE NOTE DATE OF PROCEDURE: 08/09/25 PERFORMING PHYSICIAN: Dr. Cam Terrell CONSENT: Patient LOCATION: EP lab PROCEDURE PERFORMED: 1. ELECTRONIC TRAIN CONTROL TECHNICIAN-P upgrade on the right side Biotronik) 2. Ultrasound guided venous access INDICATIONS: 1. 3rd degree AV block 2. Cardiomyopathy with 100% RV pacing PROCEDURAL SEDATION: Versed and Fentanyl. Moderate sedation was administered by the sedation nurse under my supervision and noted in the CVL log. Intraprocedural face to face sedation time: 73min. Monitoring: Cardiac telemetry, Blood pressure, continuous pulse oxymetry. FLUOROSCOPY TIME: 4.7min/10mGy EBL: 10cc SPECIMEN REMOVED: None PROCEDURAL DETAILS: Patient was placed in trendelenberg position and ultrasound was used to evaluate the patency of right axillary vein and for venous access. Right axillary venous access was obtained using modified seldinger technique using a 5 Greenlandic micro-puncture needle on one occasions and 0.35 wire was placed. Local infiltration of 1% Lidocaine was performed, and an incision was created in the right upper chest. Dissection was then performed using cautery down to the device pocket and it was exposed. 9 Greenlandic Safesheaths was placed over the wire. An active fixation Biotronik pacing leadwas then delivered through the 9Fsheath and Selectra IIID-65/42 sheath to the right ventricle. After confirmation of lead position on orthogonal views (JUNIOR and SINGAPOREAN) to confirm septal position, the screw was activated, and the lead was placed in the right ventricular mid cavity towards the septum. This was confirmed with contrast administration. After confirmation of good sensing parameters, injury pattern and pacing thresholds, 10V pacing was done and no diaphragmatic stimulation was noted. Paced QRS revealed width of 126ms. It was then secured in the pocket using three 1-0 Silk sutures. Thenan active fixation Biotronik lead was delivered through the 6Fsheath to the right atrial appendage.After confirmation of lead position on orthogonal views (JUNIOR and SINGAPOREAN), the screw was activated. Good sensing parameters, injury pattern and pacing thresholds, the lead was then tested using Lambert'smaneuver. 10V pacing was done and no diaphragmatic stimulation was noted. It was then secured in the pocket using three 1-0 Silk sutures. Pocket hemostasis was secured, and it was then copiously and vigorously irrigated with antibiotic solution. The leads were attached to the generator and then wrapped under the device and the device was tacked to underlying muscle and placed in the pocket. The pocket was closed in layers: subcutaneous layer and skin using 2-0 Vicryl. Glue and steristrip was applied. Tegaderm dressing was placed on top. Lead parameters were then rechecked through the device as noted below. The patient was returned to the short stay room for post procedural observation. No immediate procedural complications were noted. POST PROCEDURE EXAM: Patient was hemodynamically stable. COMPLICATIONS: None. IMPRESSION: 1. Successful ELECTRONIC TRAIN CONTROL TECHNICIAN-P upgrade with excellent pacing and sensing parameters. RECOMMENDATIONS: 1. Occlusive dressing to be removed after 2 weeks. 2. Do not wet the incision for 7 days. 3. No lifting heavy weights using arm on the same side x 3weeks 4. Do not lift elbow above the shoulder on the same side for 4-6 weeks. 5. No driving for 1 month. 6. F/u in device clinic 1 week from discharge or sooner for any concerns. 7. Doxycycline 100mg bid x 2 weeks Cam Terrell MD Cardiac Electrophysiology documented in this encounter Nursing Notes * Ladi Chacon RN - 08/09/2025 11:31 AM EST RN educated pt on d/c instructions. This included: site care, limited physical activity, resume normal diet, future appointments, medications, and moderate sedation instructions. RN educated pt on when to notify physician and when to go to the hospital. RN provided pt with arm sling and educated pt on importance of not lifting arm above 90 degrees, weight bearing more than 5lbs, and driving for the next 4 weeks. RN encouraged pt to voice any questions or concerns, and answered any questions or concerns if pt verbalized. Pt was wheeled off of unit with all of belongings. * Ladi Chacon RN - 08/09/2025 7:24 AM EST CHG wipes and betadine nasal swabs completed. documented in this encounter Miscellaneous Notes * Pre-Sedation Documentation - Cam Terrell MD - 08/09/2025 8:20 AM EST Patient: Daysi Hood Procedure Information Date/Time: 08/09/25829 Procedure: Biventricular pacemaker upgrade - Biotronik Location: [facility] SENIOR IT SPECIALIST 1 / [facility] HV VASCULAR LAB (Cath) Providers: Cam Terrell MD Clinical information reviewed: Allergies Meds OB Status Physical Exam Airway Mallampati: II TM distance: >3 FB Neck ROM: full Cardiovascular Dental Pulmonary Neurological Abdominal Anesthesia Plan ASA 3 CSE Anesthetic plan and risks discussed with patient. Use of blood products discussed with patient who. Additional Equipment Requests documented in this encounter Plan of Treatment DateTypeDepartmentCare Team (Latest Contact Info)Bnmvqbamogu08/20/2025 1:20 PM ESTFollow-Up [facility] [address] [place] [address] Lei Mendoza, INTERNET WEBMASTER [address] [place] [address] NameTypePriorityAssociated DiagnosesOrder ScheduleXR chest 2 viewsImagingRoutine Cardiac pacemaker in situ Expected: 08/09/2025, Expires: 08/09/2026documented as of this encounter Procedures Procedure NamePriorityDate/TimeAssociated DiagnosisCommentsECG 12-LEADRoutine 08/09/2025 10:09 AM EST BIVENTRICULAR PACEMAKER PLEAZGVIdrahog37/10/2025 9:42 AM EST Chronic systolic heart failure (CMS/HCC) ECG 12-QNCAUpjpxyy63/10/2025 8:01 AM EST documented in this encounter Results * ECG 12 lead (08/09/2025 10:09 AM EST)ComponentValueRef RangeTest Method Analysis TimePerformed AtPathologist SignatureVentricular Bnuj83KCYIP MUSE Atrial Ttaa36SBINW MUSEPR Tjfrrsfz429xjRW MUSEQRS XAXLFAWR239thTE MUSEQT Rxelzvzb253vvGB MUSEQTC CALCULATION(BAZETT)491msGE MQZHG-Nedr-93kwaexjvFH MUSE T Wave Esns994zmjudtqOX MUSESpecimen (Source)Anatomical Location / Laterality Collection Method / VolumeCollection TimeReceived Time08/09/2025 10:02 AM EST 08/09/2025 11:17 AM EST Impressions GE MUSE - 08/09/2025 11:17 AM EST Atrial-sensed ventricular-paced rhythm Abnormal ECG When compared with ECG of 09-AUG-2025 07:51, Vent. rate has decreased BY ?? 5 BPM Confirmed by MD DANGELO EHAB ([id number]) on 08/09/2025 11:17:12 AM Narrative Procedure Note Eric Dangelo MD - 08/09/2025 IMPRESSION: Atrial-sensed ventricular-paced rhythm Abnormal ECG When compared with ECG of 09-AUG-2025 07:51, Vent. rate has decreased BY 5 BPM Confirmed by MD DANGELO EHAB ([id number]) on 08/09/2025 11:17:12 AM Authorizing ProviderResult TypeResult StatusPafabio Terrell MDECG ORDERABLESFinal ResultPerforming OrganizationAddressCity/State/ZIP CodePhone Number GE MUSE * BIVENTRICULAR PACEMAKER UPGRADE (08/09/2025 9:42 AM EST)Anatomical Region LateralityModalityOtherSpecimen (Source)Anatomical Location / Laterality Collection Method / VolumeCollection TimeReceived Time Impressions 08/09/2025 10:21 AM EST 1. Successful ELECTRONIC TRAIN CONTROL TECHNICIAN-P upgrade with excellent pacing and sensing parameters. RECOMMENDATIONS: 1. Occlusive dressing to be removed after 2 weeks. 2. Do not wet the incision for 7 days. 3. No lifting heavy weights using arm on the same side x 3weeks 4. Do not lift elbow above the shoulder on the same side for 4-6 weeks. 5. No driving for 1 month. 6. F/u in device clinic 1 week from discharge or sooner for any concerns. 7. Doxycycline 100mg bid x 2 weeks Cam Terrell MD Cardiac Electrophysiology ?? Narrative 08/09/2025 10:21 AM EST Images from the original result were not included. ELECTRONIC TRAIN CONTROL TECHNICIAN-PACEMAKER UPGRADE PROCEDURE NOTE DATE OF PROCEDURE: 08/09/25 PERFORMING PHYSICIAN: Dr. Cam Terrell CONSENT: Patient LOCATION: EP lab PROCEDURE PERFORMED: 1. ELECTRONIC TRAIN CONTROL TECHNICIAN-P upgrade on the right side Biotronik) 2. Ultrasound guided venous access INDICATIONS: 1. 3rd degree AV block 2. Cardiomyopathy with 100% RV pacing PROCEDURAL SEDATION: Versed and Fentanyl. Moderate sedation was administered by the sedation nurse under my supervision and noted in the CVL log. Intraprocedural face to face sedation time: 73min. Monitoring: Cardiac telemetry, Blood pressure, continuous pulse oxymetry. FLUOROSCOPY TIME: 4.7min/10mGy EBL: 10cc SPECIMEN REMOVED: None PROCEDURAL DETAILS: Patient was placed in trendelenberg position and ultrasound was used to evaluate the patency of right axillary vein and for venous access. Right axillary venous access was obtained using modified seldinger technique using a 5 Greenlandic micro-puncture needle on one occasions and 0.35 wire was placed. Local infiltration of 1% Lidocaine was performed, and an incision was created in the right upper chest. Dissection was then performed using cautery down to the device pocket and it was exposed. 9 Green[place]ic Safesheaths was placed over the wire. An active fixation Biotronik pacing lead was then delivered through the 9Fsheath and Selectra IIID-65/42 sheath to the right ventricle. After confirmation of lead position on orthogonal views (JUNIOR and SINGAPOREAN) to confirm septal position, the screw was activated, and the lead was placed in the right ventricular mid cavity towards the septum. This was confirmed with contrast administration. After confirmation of good sensing parameters, injury pattern and pacing thresholds, 10V pacing was done and no diaphragmatic stimulation was noted. Paced QRS revealed width of 126ms. ?? It was then secured in the pocket using three 1-0 Silk sutures. Then an active fixation Biotronik lead was delivered through the 6Fsheath to the right atrial appendage. After confirmation of lead position on orthogonal views (JUNIOR and SINGAPOREAN), the screw was activated. Good sensing parameters, injury pattern and pacing thresholds, the lead was then tested using Lambert's maneuver. 10V pacing was done and no diaphragmatic stimulation was noted. It was then secured in the pocket using three 1-0 Silk sutures. Pocket hemostasis was secured, and it was then copiously and vigorously irrigated with antibiotic solution. The leads were attached to the generator and then wrapped under the device and the device was tacked to underlying muscle and placed in the pocket. The pocket was closed in layers: subcutaneous layer and skin using 2-0 Vicryl. Glue and steristrip was applied. Tegaderm dressing was placed on top. Lead parameters were then rechecked through the device as noted below. The patient was returned to the short stay room for post procedural observation. No immediate procedural complications were noted. POST PROCEDURE EXAM: Patient was hemodynamically stable. COMPLICATIONS: None. Authorizing ProviderResult TypeResult StatusPafabio Terrell [facility] [place] [facility] [place] PROCEDURESFinal Result * ECG 12 lead (08/09/2025 8:01 AM EST)ComponentValueRef RangeTest MethodAnalysis TimePerformed AtPathologist SignatureVentricular [id number] MUSEAtrial Rate 68BPMGE MUSEPR Voreyrkd015jeNU MUSEQRS [id number] MUSEQT [id number] MUSEQTC CALCULATION(BAZETT)499msGE MUSEP Lcqk12wjstmbpZN CUMEC-Imjk-[id number] GE MUSET Wave [id number] MUSESpecimen (Source)Anatomical Location / LateralityCollection Method / VolumeCollection TimeReceived Time08/09/2025 7:51 AM EST08/09/2025 8:18 AM EST Impressions GE MUSE - 08/09/2025 8:18 AM EST Atrial-sensed ventricular-paced rhythm with prolonged AV conduction Abnormal ECG When compared with ECG of 23-APR-2013 06:25, Electronic ventricular pacemaker has replaced Sinus rhythm Confirmed by Cam Terrell ([id number]) on 08/09/2025 8:18:04 AM Narrative Procedure Note Cam Terrell MD - 08/09/2025 IMPRESSION: Atrial-sensed ventricular-paced rhythm with prolonged AV conduction Abnormal ECG When compared with ECG of 23-APR-2013 06:25, Electronic ventricular pacemaker has replaced Sinus rhythm Confirmed by Cam Terrell ([id number]) on 08/09/2025 8:18:04 AM Authorizing ProviderResult TypeResult StatusPafabio WUG ORDERABLESFinal ResultPerforming OrganizationAddressCity/State/ZIP CodePhone Number GE MUSE documented in this encounter Visit Diagnoses Diagnosis Chronic systolic heart failure (CMS/HCC)- Primary Chronic systolic heart failure Chronic systolic heart failure (CMS/HCC) Chronic systolic heart failure Abnormal results of cardiovascular function studies Nonspecific abnormal unspecified cardiovascular function study Cardiac pacemaker in situ Chronic systolic heart failure (CMS/HCC) Chronic systolic heart failure documented in this encounter Admitting Diagnoses Diagnosis Chronic systolic heart failure (CMS/HCC) Chronic systolic heart failure documented in this encounter Active and Recently Administered Medications Times are shown in EST.Medication Order/ gentamicin (Garamycin) 80 mg in sodium chloride irrigation solution 0.9 % 500 mL IRRIGATION (COMPLETED) irrigation, Once, On Sat08/09/25 at 0830, For 1 dose, Intraprocedure, Indication: Surgical Prophylaxis * 0830 (Due) * 0923 (Given - Provider: Cam Terrell MD) vancomycin IVPB 1,000 mg (COMPLETED) 1,000 mg, intravenous, at 200 mL/hr, Administer over 60 Minutes, Once, On Sat08/09/25 at 0715, For1 dose, Preprocedure, Administer within 120 minutes of procedure. premix bag, Suspected Indication (Select all that apply): Surgical Prophylaxis * 0715 (Due) * 0830 (New Bag - Provider: Chuyita Mota RN) Medication Order/ fentaNYL (Sublimaze) injection (CANCELED) As needed, Starting on Sat08/09/25 at 0823, Intraprocedure * 0823 (Given - Provider: Chuyita Mota RN) * 0844 (Given - Provider: Chuyita Mota RN) * 0912 (Given - Provider: Chuyita Mota RN) lidocaine (PF) (Xylocaine) 10 mg/mL (1 %) injection (CANCELED) As needed, Starting on Sat08/09/25 at 0844, Intraprocedure * 0844 (Given - Provider: Cam Terrell MD) midazolam (Versed) injection (CANCELED) As needed, Starting on Sat08/09/25 at 0824, Intraprocedure * 0824 (Given - Provider: Chuyita Mota, RN) * 0844 (Given - Provider: Chuyita Mota, ISABELLE) * 0915 (Given - Provider: Chuyita Mota, RN) sodium chloride 0.9 % infusion (COMPLETED) Continuous PRN, Starting on Sat08/09/25 at 0821, Intraprocedure * 0821 (New Bag - Provider: Chuyita Mota RN) documented in this encounter Care Teams Team MemberRelationshipSpecialtyStart DateEnd Date Cassius Patel MD [address] [place] [address] PCP - Wwwmnam18/26/24documented as of this encounter
--- OUTSIDE RECORDS SUMMARY | 2025-08-09 08:30 | XMS_ITS | Encounter Summary ---
Author Organization [facility] Address [address] [place] [address] Care Team Providers Care Hand Packer/Packager Name Role Phone Cassius Patel MD Primary Care Provider [phone] Reason for Visit * Auth/Cert (Routine)SpecialtyDiagnoses / ProceduresReferred By ContactReferred To Contact Diagnoses Chronic systolic heart failure (CMS/HCC) Chronic systolic heart failure (CMS/HCC) [I50.22] Procedures AK REMVL PERM PM PLS GEN W/REPL PLSE GEN MULT LEAD AK INSJ ELTRD CAR NATO SYS TM INSJ DFB/PM PLS GEN Biventricular pacemaker upgrade Cam Terrell MD [address] [place] [address] Phone: tel: fax: [facility] [address] [place] [address] Phone: tel: fax: Referral IDStatusReasonStart DateExpiration DateVisits RequestedVisits [id number] Encounter Details DateTypeDepartmentCare Team (Latest Contact Info)Xcyipvwkuqf84/10/2025 8:30 AM EST - 08/09/2025 10:30 AM ESTSurgery [facility] [place] [facility] [address] [place] [address] Cam Terrell MD [address] [place] [phone] Biventricular pacemaker upgrade Social History Tobacco UseTypesPacks/DayYears UsedDateSmoking Tobacco: NeverSmokeless Tobacco: NeverAlcohol UseStandard Drinks/WeekCommentsNot Currently0 (1 standard drink = 0.6 oz pure alcohol)UT Safety & EnvironmentAnswerDate RecordedFear of Current or Ex-PartnerNot on file11/21/2023Emotionally AbusedNot on file11/21/2023 Physically AbusedNot on file11/21/2023Sexually AbusedNot on file11/21/2023 Physically or Sexually AbusedNot on file11/21/2023CommentsUnknownSex and Gender InformationValueDate RecordedSex Assigned at WwmusXkotnu85/02/2024 11:11 PM EDTLegal LtpCrqusy34/29/2022 11:05 PM EDTGender EqpkallaYlhiea84/02/2024 11:11 PM EDTSexual OrientationChoose not to gataxoqf14/04/2025 9:18 PM EDT documented as of this encounter Last Filed Vital Signs Vital SignReadingTime TakenCommentsBlood Hyjgzrni951 10:30 AM EST Gpnhq388808/09/2025 10:30 AM ESTTemperature--Respiratory Azkk310210/09/2024 10:30 AM ESTOxygen Dtygbtbius212%08/09/2025 10:30 AM ESTInhaled Oxygen Concentration-- Xhpdha49 kg (141 lb)08/09/2025 7:14 AM WMKEwgdae985.6 cm (5' 4 )08/09/2025 7:14 AM ESTBody Mass Index24. 7:14 AM ESTdocumented in this encounter Functional Status * QuestionAnswerDate of DertuaustvOxdjfmZQ955/ 10:30 AM Ladi Chin, FHEnoyk0405/10/2025 10:30 AM Ladi Chin RN * Pain Assessment TimerQuestionAnswerDate of AssessmentAuthorRestart Pain Assessment NkzkhLdi65/10/2025 10:30 AM Ladi Chin RN * Sepsis Model ScoresQuestionAnswerDate of AssessmentAuthorEarly Detection of Sepsis Score6.8110/09/2024 10:15 AM ESTChronicles, Batchq * Pain AssessmentQuestionAnswerDate of AssessmentAuthorPain AssessmentNo/denies pain08/09/2025 10:30 AM Ladi Chin RN * QuestionAnswerDate of AssessmentAuthorPulse rate from Plethysmogram (bpm)73 08/09/2025 10:30 AM Ladi Chin RN * Vital SignsQuestionAnswerDate of GlmvfsgkrbZufkkjGZ750/6708/09/2025 10:30 AM Ladi Chin ELLkixl7068/10/2025 10:30 AM Ladi Chin RNResp15 08/09/2025 10:30 AM Ladi Chin RNSpO2100110/09/2024 10:30 AM Ladi Cintron RNMAP (mmHg)8708/09/2025 10:30 AM Ladi Chin RN * RespiratoryQuestionAnswerDate of AssessmentAuthorBilateral Breath Sounds Clear;Hohktemstz15/10/2025 7:03 AM Ladi Chin RNRespiratory Effort Cwzqkvrla99/10/2025 7:03 AM Ladi Chin RNRespiratory Depth/Rhythm Lbnknjm8308/09/2025 7:03 AM Ladi Chin RNBreath SoundsBilateral breath qmldpk1608/09/2025 7:03 AM Ladi Chin RN * NeurologicalQuestionAnswerDate of AssessmentAuthorLevel of ConsciousnessAlert 08/09/2025 7:03 AM Ladi Chin RNOrientation LevelOriented X4110/09/2024 7:03 AM Ladi Chin RNCognitionAppropriate oruxeyykc51/10/2025 7:03 AM Ladi Chin RNSpeechClear110/09/2024 7:03 AM Ladi Chin RN * Pain AssessmentQuestionAnswerDate of AssessmentAuthorPain AssessmentNo/denies pain08/09/2025 10:30 AM Ladi Chin RN * [place] Suicide Severity Rating ScaleQuestionAnswerDate of AssessmentAuthor1. Have you wished you were or wished you could go to sleep and not wake up?No08/09/2025 7:04 AM Ladi Chin RN2. Have you actually had any thoughts of killing yourself?No08/09/2025 7:04 AM Ladi Chin RN6. Have you ever done anything, started to do anything, or prepared to do anything to end your life?No08/09/2025 7:04 AM Ladi Chin RN * Risk of SuicideAnswerDate of AssessmentAuthorNo Risk08/09/2025 7:04 AM Ladi Cintron RN * Modified AldreteQuestionAnswerDate of QltipashvzUwpfizCfihbhax214/10/2025 9:52 AM Ladi Chin RNRespiration 9:52 AM Ladi Chin RN Dadgssshpre302/10/2025 9:52 AM Ladi Chin RNConsciousness 9:52 AM Ladi Chin RNOxygen Ethievjypn273/10/2025 9:52 AM Ladi Chin RNModified Jamila Yjmoh3640 9:52 AM Ladi Chin RN documented as of this encounter Mental Status * [place] Agitation Sedation ScaleQuestionAnswerEntry DateAuthorRichmond Agitation Sedation Scale (RASS)- 9:15 AM Marielos Cali RN * Modified AldreteQuestionAnswerEntry VrbzXhmtpmRxxjsefc026/10/2025 9:52 AM Ladi Cintron RNRespiration 9:52 AM Ladi Chin RN Kubhfrkuxlv413/10/2025 9:52 AM Ladi Chin RNConsciousness 9:52 AM Ladi Chin RNOxygen Spowfxdvbe161/10/2025 9:52 AM Ladi Chin RNModified Jamila Yrgnl1644 9:52 AM Ladi Chin RN documented in this encounter Discharge Instructions * Attachments The following attachments cannot be sent through Care Everywhere. * Moderate Conscious Sedation Adult Care After (Bahraini) * Pacemaker Implantation Adult Care After (Bahraini) documented in this encounter Medications at Time [...] breakfast and with evening meal. 180 tablet cholecalciferol (Vitamin D-3) 25 MCG (1000 UT) [...] 10 mg tablet Indications:Coronary artery disease involving council coronary artery of council heart without angina pectorisTake 1 tablet (10 mg) by mouth in the morning. 90 tablet HYDROcodone-acetaminophen ([place]) 5-325 mg tablet Take 1 tablet by mouth every 4 (four) hours if needed. Jardiance 10 mg Indications:Chronic systolic congestive heart failure (CMS/HCC)TAKE ONE TABLET BY MOUTH EVERY DAY DIRECTED 90 tablet lisinopril 2.5 mg tablet Indications:Essential hypertensionTake 1 tablet (2.5 mg) by mouth once daily as directed. 90 tablet 503/ sennosides-docusate sodium (Genet-Colace) 8.6-50 mg tablet Take 1 tablet by mouth in the morning.5004/13/2026 spironolactone (Aldactone) 25 mg tablet Indications:Edema, unspecified typeTAKE ONE-HALF TABLET BY MOUTH ONCE DAILY DIRECTED. 45 tablet documented as of this encounter H&P Notes * Cam Terrell MD - 08/09/2025 8:19 AM EST Images from the original note were not included. AL Electrophysiology Consult Note AL Cardiology [facility] Reason for visit: Afib 08/09/25 Pt [...] Tobacco Use: Low Risk (08/02/2025) Received from [facility] Patient History Smoking Tobacco Use: Never Smokeless Tobacco Use: Never Passive Exposure: Never Alcohol Use: Not At Risk (06/16/2024) Received from [facility] AUDIT-C Q1: How often do you have a drink containing alcohol?: Never Q2: How many drinks containing alcohol do you have on a typical day when you are drinking?: Patientdoes not drink Q3: How often do you have six or more drinks on one occasion?: Never Financial Resource Strain: Low Risk (06/16/2024) Received from [facility] Overall Financial Resource Strain (CARDIA) Difficulty of Paying Living Expenses: Not hard at all Food Insecurity: No Food Insecurity (06/24/2024) Received from [facility] Hunger Screening Within the past 12 months we worried whether our food would run out before we got money to buy more.: Never True Within the past 12 months the food we bought just didn't last and we didn't have money to get more.: Never True Transportation Needs: No Transportation Needs (06/16/2024) Received from [facility] PRAPARE - Transportation Lack of Transportation (Medical): No Lack of Transportation (Non-Medical): No Physical Activity: Inactive (06/16/2024) Received from [facility] Exercise Vital Sign On average, how many days per week do you engage in moderate to strenuous exercise (like a brisk walk)?: 0 days On average, how many minutes do you engage in exercise at this level?: 0 min Stress: No Stress Concern Present (06/16/2024) Received from [facility] [place] of Occupational Health - Occupational Stress Questionnaire Feeling of Stress : Not at all Social Connections: Unknown (04/01/2025) Received from [facility] Social Connection and Isolation Panel Frequency of Communication with Friends and Family: Not on file Frequency of Social Gatherings with Friends and Family: Not on file Attends Anabaptist Services: Not on file Active Member of Clubs or Organizations: Not on file Attends Club or Organization Meetings: Not on file Are you , , , , never , or living with a partner?: Recent Concern: Social Connections - Moderately Isolated (04/01/2025) Received from [facility] [employer] Social Connection and Isolation Panel Frequency of Communication with Friends and Family: Twice a week Frequency of Social Gatherings with Friends and Family: Twice a week Attends Anabaptist Services: More than 4 times per year [...] Depression: Not at risk (08/02/2025) Received from [facility] [employer] PHQ-2 Patient Health Questionnaire-2 Score: 0 Housing Stability: Unknown (06/16/2024) Received from [facility] [employer] Housing Stability Vital Sign In the last 12 months, was there a time when you were not able to pay the mortgage or rent on time?: No Number of Times Moved in the Last Year: Not on file At any time in the past 12 months, were you homeless or living in a assisted (including now)?: No Utilities: Not on file Health Literacy: Inadequate Health Literacy (06/16/2024) Received from [facility] [employer] B1300 Health Literacy Frequency of need for [...] in the morning. 90 tablet 3 HYDROcodone-acetaminophen ([place]) 5-325 mg tablet Take 1 tablet by [...] Value Ventricular Rate 68 Atrial Rate 68 AK Interval 238 QRS DURATION 168 QT Interval 470 QTC CALCULATION(BAZETT) 499 P [place] 74 R-[place] -88 T Wave [place] 94 Impression Atrial-sensed ventricular-paced rhythm with prolonged [...] have agreed to proceed with the procedure Cam Terrell MD Cardiac Electrophysiology [facility] documented in this encounter Procedure Notes * Cam Terrell MD - 08/09/2025 10:21 AM EST Images from the original note were not included. RESEARCH ASSISTANT MEMBER-PACEMAKER UPGRADE PROCEDURE NOTE DATE OF PROCEDURE: 08/09/25 PERFORMING PHYSICIAN: Dr. Cam Terrell CONSENT: Patient LOCATION: EP lab PROCEDURE PERFORMED: 1. RESEARCH ASSISTANT MEMBER-P upgrade on the right side Biotronik) 2. [...] using modified seldinger technique using a 5 Syrian micro-puncture needle on one occasions and 0.35 wire was placed. Local infiltration of 1% Lidocaine was performed, and an incision was created in the right upper chest. Dissection was then performed using cautery down to the device pocket and it was exposed. 9 Syrian Safesheaths was placed over the wire. An active fixation Biotronik pacing leadwas then delivered through the 9Fsheath and Selectra IIID-65/42 sheath to the right ventricle. After confirmation of lead position on orthogonal views (JUNIOR and UZBEK) to confirm septal position, the screw was [...] lead position on orthogonal views (JUNIOR and UZBEK), the screw was activated. Good sensing parameters, [...] hemodynamically stable. COMPLICATIONS: None. IMPRESSION: 1. Successful RESEARCH ASSISTANT MEMBER-P upgrade with excellent pacing and sensing parameters. [...] Procedure: Biventricular pacemaker upgrade - Biotronik Location: [facility] / [facility] (Cath) Providers: Cam Terrell MD [...] Plan of Treatment DateTypeDepartmentCare Team (Latest Contact Info)Trzmqvxdpvx65/20/2025 1:20 PM ESTFollow-Up [facility] [address] [place] [address] Lei Mendoza, CROSSING TENDER [address] [place] [address] NameTypePriorityAssociated DiagnosesOrder ScheduleXR chest 2 viewsImagingRoutine Cardiac pacemaker in situ Expected: 08/09/2025, Expires: 08/09/2026documented as of this encounter Procedures Procedure NamePriorityDate/TimeAssociated DiagnosisCommentsECG 12-LEADRoutine 08/09/2025 10:09 AM EST BIVENTRICULAR PACEMAKER DOVDMJPLsysviu74/10/2025 9:42 AM EST Chronic systolic heart failure (CMS/HCC) ECG 12-FEPSGhifvka28/10/2025 8:01 AM EST documented in this encounter Results * ECG 12 lead (08/09/2025 10:09 AM EST)ComponentValueRef RangeTest Method Analysis TimePerformed AtPathologist SignatureVentricular Kgae38EFMAM MUSE Atrial Tirc52UTCUN MUSEPR Milpkkgj445vwRC MUSEQRS GIINTXEL314rmES MUSEQT Xxzdwvuv743gjQI MUSEQTC CALCULATION(BAZETT)491msGE SOEDL-Zsqz-46bdbvbckCP MUSE T Wave Tofg118jtfcuitJL MUSESpecimen (Source)Anatomical Location / Laterality Collection Method / VolumeCollection TimeReceived Time08/09/2025 10:02 AM EST 08/09/2025 11:17 AM EST Impressions GE MUSE - 08/09/2025 11:17 AM EST Atrial-sensed ventricular-paced rhythm Abnormal ECG When compared with ECG of 09-AUG-2025 07:51, Vent. rate has decreased BY ?? 5 BPM Confirmed by MD DONNA, EHAB ([id number]) on 08/09/2025 11:17:12 AM Narrative Procedure Note Eric Dangelo MD - 08/09/2025 IMPRESSION: Atrial-sensed ventricular-paced rhythm Abnormal ECG When compared with ECG of 09-AUG-2025 07:51, Vent. rate has decreased BY 5 BPM Confirmed by MD DONNA, EHAB ([id number]) on 08/09/2025 11:17:12 AM Authorizing ProviderResult TypeResult StatusPafabio HAN ORDERABLESFinal ResultPerforming OrganizationAddressCity/State/ZIP CodePhone Number GE MUSE * BIVENTRICULAR PACEMAKER UPGRADE (08/09/2025 9:42 AM EST)Anatomical Region LateralityModalityOtherSpecimen (Source)Anatomical Location / Laterality Collection Method / VolumeCollection TimeReceived Time Impressions 08/09/2025 10:21 AM EST 1. Successful RESEARCH ASSISTANT MEMBER-P upgrade with excellent pacing and sensing parameters. [...] from the original result were not included. RESEARCH ASSISTANT MEMBER-PACEMAKER UPGRADE PROCEDURE NOTE DATE OF PROCEDURE: 08/09/25 PERFORMING PHYSICIAN: Dr. Cam Terrell CONSENT: Patient LOCATION: EP lab PROCEDURE PERFORMED: 1. RESEARCH ASSISTANT MEMBER-P upgrade on the right side Biotronik) 2. [...] using modified seldinger technique using a 5 Syrian micro-puncture needle on one occasions and 0.35 wire was placed. Local infiltration of 1% Lidocaine was performed, and an incision was created in the right upper chest. Dissection was then performed using cautery down to the device pocket and it was exposed. 9 Syrian Safesheaths was placed over the wire. An active fixation Biotronik pacing lead was then delivered through the 9Fsheath and Selectra IIID-65/42 sheath to the right ventricle. After confirmation of lead position on orthogonal views (JUNIOR and UZBEK) to confirm septal position, the screw was [...] lead position on orthogonal views (JUNIOR and UZBEK), the screw was activated. Good sensing parameters, [...] hemodynamically stable. COMPLICATIONS: None. Authorizing ProviderResult TypeResult StatusPaul Xander [facility] [place] ELECTROPHYSIOLOGY PROCEDURESFinal Result * ECG 12 lead (08/09/2025 8:01 AM EST)ComponentValueRef RangeTest MethodAnalysis TimePerformed AtPathologist SignatureVentricular Bnoc81GSLVH MUSEAtrial Rate 68BPMGE MUSEPR Loucikpa715ofMK MUSEQRS CLRVMMUH109mfBW MUSEQT Uyfzplsv644irKB MUSEQTC CALCULATION(BAZETT)499msGE MUSEP Obqs27dpsgcseVP OHSZY-Uguj-54nnrzefn GE MUSET Wave Xhkx33ulbsrsrTB MUSESpecimen (Source)Anatomical Location / LateralityCollection Method / [...] on 08/09/2025 8:18:04 AM Authorizing ProviderResult TypeResult StatusPaul Xander FITZPATRICKECG ORDERABLESFinal ResultPerforming OrganizationAddressCity/State/ZIP CodePhone Number GE MUSE [...] systolic heart failure documented in this encounter Administered Medications Medication OrderMAR ActionAction DateDoseRateSite fentaNYL (Sublimaze) injection As needed, Starting on Sat08/09/25 at 0823, Intraprocedure Given08/09/2025 9:12 AM EST25 xjjMhfzo84/10/2025 8:44 AM EST12.5 mcgGiven 08/09/2025 8:23 AM EST12.5 mcg gentamicin (Garamycin) 80 mg in sodium chloride irrigation solution 0.9 % 500 mL IRRIGATION irrigation, Once, On Sat08/09/25 at 0830, For 1 dose, Intraprocedure, Indication: Surgical Prophylaxis Given08/09/2025 9:23 AM ODQ531 mL lidocaine (PF) (Xylocaine) 10 mg/mL (1 %) injection As needed, Starting on Sat08/09/25 at 0844, Intraprocedure Given08/09/2025 8:44 AM EST20 mL midazolam (Versed) injection As needed, Starting on Sat08/09/25 at 0824, Intraprocedure Given08/09/2025 9:15 AM EST0.5 olRmqpk9008/09/2025 8:44 AM EST0.5 mgGiven 08/09/2025 8:24 AM EST0.5 mg sodium chloride 0.9 % infusion Continuous PRN, Starting on Sat08/09/25 at 0821, Intraprocedure New 08/09/2025 8:21 AM EST50 mL/hr50 mL/hr vancomycin IVPB 1,000 mg 1,000 mg, intravenous, at 200 mL/hr, Administer over 60 Minutes, Once, On Sat08/09/25 at 0715, For1 dose, Preprocedure, Administer within 120 minutes of procedure. premix bag, Suspected Indication (Select all that apply): Surgical Prophylaxis New 08/09/2025 8:30 AM EST1,000 mgdocumented in this encounter Active and Recently Administered [...] Intraprocedure * 0824 (Given - Provider: Chuyita Mota RN) * 0844 (Given - Provider: Chuyita Mota RN) * 0915 (Given - Provider: Chuyita Mota RN) sodium chloride 0.9 % infusion (COMPLETED) Continuous PRN, Starting on Sat08/09/25 at 0821, Intraprocedure * 0821 (New Bag - Provider: Chuyita Mota RN) documented in this encounter Care Teams Team MemberRelationshipSpecialtyStart DateEnd Date Cassius Patel MD [address] [place] [address] PCP - Gknlfyu17/26/24documented as of this encounter
--- OUTSIDE RECORDS SUMMARY | 2025-08-10 10:17 | XMS_ITS | Encounter Summary ---
Author Organization [facility] Address [address] [place] [address] Care Team Providers Care Numerical Control Machine Tool Operator Name Role Phone Cassius Patel MD Primary Care Provider Erasmo Cole MD Unavailable [phone] Saurav Girard MD Unavailable Suzanna Olmos RN Unavailable [phone] Cassius Patel MD Unavailable [phone] Encounter Details DateTypeDepartmentCare Team (Latest Contact Info)Mwuiiayycgi70/03/2025Results Follow-Up [facility] [address] Medicine [address] [facility] [address] [place] [phone] Cassius Patel MD 112 [facility] [address] [place] [address] TB MICROALB CREAT RATIO RANDOM Social History Tobacco UseTypesPacks/DayYears UsedDateSmoking Tobacco: NeverPassive Smoke Exposure: NeverSmokeless Tobacco: NeverAlcohol UseStandard Drinks/WeekComments Never0 (1 standard drink = 0.6 oz pure alcohol)vdkywkbnJ3617 Health Literacy AnswerDate RecordedHow often do you need to have someone help you when you read instructions, pamphlets, or other written material from your doctor or pharmacy? Dyshkagjl92/17/2024Humiliation, Afraid, Rape, and Kick questionnaireAnswerDate RecordedWithin the [...] with Friends and FamilyNot on file04/01/2025 Attends Buddhist ServicesNot on file04/01/2025tive Member of Clubs or OrganizationsNot on file04/01/2025ttends Club or Organization MeetingsNot on file04/01/2025re you , , , , never , or living with a partner?Msuovqv7104/01/2025UDIT-CAnswerDate RecordedQ1: How often do you have a [...] hard at all06/16/2024HQ-2AnswerDate Recorded Patient Health Questionnaire-2 Kxneo10010/02/2024[facility] [place] [facility] - Occupational Stress QuestionnaireAnswerDate [...] steady place to sleep or slept in [facility] (including now)?No 02/18/2023Housing Stability Vital SignAnswerDate [...] InformationValueDate RecordedSex Assigned at BirthNot on fileLegal BxtKqswsx62/15/2023 6:48 PM EDTGender Identity Not on fileSexual OrientationNot on filedocumented as of this encounter Functional Status * Over the past 2 weeks, how often have you been bothered by any of the following problems?QuestionAnswerDate of AssessmentAuthorLittle interest or pleasure in doing thingsNot at all08/02/2025 10:00 AM Raquel Mauro MA Feeling down, depressed, or hopelessNot at all08/02/2025 10:00 AM Nj December, MAPatient Health Questionnaire-2 Dscue32310/02/2024 10:00 AM Raquel Mauro MA * QuestionAnswerDate of AssessmentAuthorTrouble falling or staying asleep, or sleeping too muchNot at all08/02/2025 10:00 AM NjDecember, MAFeeling tired or having little energyNot at all08/02/2025 10:00 AM NjDecember, MAPoor appetite or overeatingNot at all08/02/2025 10:00 AM NjDecember, MAFeeling bad about yourself - or that [...] than usual.Not at all 08/02/2025 10:00 AM NjDecember, MAThoughts that you would be better off or hurting yourself in some wayNot at all08/02/2025 10:00 Nj December, MAPatient Health Questionnaire-9 Amjum37610/02/2024 10:00 AM Raquel Mauro MA documented as of this encounter Miscellaneous Notes * Telephone Encounter - Raquel Naranjo MA - 08/02/2025 1:25 PM EST No answer on phone, portal message sent * Telephone Encounter - Raquel Naranjo MA - 08/02/2025 1:25 PM EST ----- Message from Cassius Patel MD sent at 08/02/2025 12:51 PM EST ----- ----- Message ----- From: Interface, Lab Results In Sent: 08/02/2025 12:30 PM EST To: Cassius Patel MD * Telephone Encounter - Cassius Patel MD - 08/02/2025 12:51 PM EST Notify her that the urine test is normal and she is not leaking any urine. documented in this encounter Plan of Treatment DateTypeDepartmentCare Team (Latest Contact Info)Gitgxqbpyvv76/06/2026 11:00 AM ESTOffice Visit [facility] [address] Medicine [address] [place] [address] Cassius Patel MD [address] [place] [address] (Fax) documented as of this encounter Visit Diagnoses Not on filedocumented in this encounter Additional Health Concerns AssessmentNoted TimePHQ-9 Depression Total Score: 10:00 AM EST documented as of this encounter Care Teams Team MemberRelationshipSpecialtyStart DateEnd Cassius Patel MD [address] [facility] [address] [place] [address] (Fax) PCP - GeneralFamily Altcqwhe31/17/24 Cassius Patel MD [address] [address] (Fax) PCP - Obie MADSEN05/31/25 Erasmo Cole MD [address] [place] [phone] (Fax) CardiologistFamily Izacnhhp52/17/24 Saurav Girard MD [address] [place] [address] Prhrvpmooubry25/17/24 Suzanna Olmos, ISABELLE [address] [facility] [address] [place] [address] Registered NurseFamily Ajccglmk91/6/24documented as of this encounter
--- OUTSIDE RECORDS SUMMARY | 2025-08-10 10:17 | XMS_ITS | Encounter Summary ---
Author Organization [facility] Address [address] [place] [address] Care Team Providers Care System Software Programmer Name Role Phone Cassius Patel MD Primary Care Provider [phone] Erasmo Cole MD Unavailable [phone] Saurav Girard MD Unavailable [phone] Suzanna Olmos RN Unavailable [phone] Cassius Patel MD Unavailable Encounter Details DateTypeDepartmentCare Team (Latest Contact Info)Eqqasktcnnz77/03/2025linisync Result Encounter [facility] External Department Unsolicited Provider, Generic External Data Social History Tobacco UseTypesPacks/DayYears UsedDateSmoking Tobacco: NeverPassive Smoke Exposure: NeverSmokeless Tobacco: NeverAlcohol UseStandard Drinks/WeekComments Never0 (1 standard drink = 0.6 oz pure alcohol)[id number] Health Literacy AnswerDate RecordedHow often do you need to have someone help you when you read instructions, pamphlets, or other written material from your doctor or pharmacy? Peslemoor99/17/2024Humiliation, Afraid, Rape, and Kick questionnaireAnswerDate RecordedWithin the [...] with Friends and FamilyNot on 04/01/2025 Attends Nondenominational ServicesNot on file04/01/2025tive Member of Clubs or OrganizationsNot on 04/01/2025ttends Club or Organization MeetingsNot on 04/01/2025re you , , , , never , or living with a partner?Fdglqmr2404/01/2025UDIT-CAnswerDate RecordedQ1: How often do you have a [...] hard at all06/16/2024HQ-2AnswerDate Recorded Patient Health Questionnaire-2 Xginj30910/02/2024[facility] Occup[facility] - Occupational Stress QuestionnaireAnswerDate [...] steady place to sleep or slept in [facility] (including now)?No 02/18/2023Housing Stability Vital SignAnswerDate RecordedIn the last 12 months, was there a time when you were not able to pay the mortgage or rent on time?No 06/16/2024Number of Times Moved in the Last YearNot on file06/16/2024t any time in the past 12 months, were you homeless or living in a fci (including now)? No06/16/2024CommentsNoSex and Gender InformationValueDate RecordedSex Assigned at BirthNot on fileLegal YzpUtrkui63/15/2023 6:48 PM EDTGender Identity Not on fileSexual OrientationNot on filedocumented as of this encounter Functional Status * Over the past 2 weeks, how often have you been bothered by any of the following problems?QuestionAnswerDate of AssessmentAuthorLittle interest or pleasure in doing thingsNot at all08/02/2025 10:00 AM Nj, December, [place] Feeling down, depressed, or hopelessNot at all08/02/2025 10:00 AM Nj, December, MAPatient Health Questionnaire-2 Ucgxt143/11/2024 10:00 AM Nj December, [place] * QuestionAnswerDate of AssessmentAuthorTrouble falling or [...] all08/02/2025 10:00 AM December, MAPatient Health Questionnaire-9 Ayfue92110/02/2024 10:00 AM Nj, December, [place] documented as of this encounter Plan of Treatment DateTypeDepartmentCare Team (Latest Contact Info)Xcwxtwvrole48/06/2026 11:00 AM ESTOffice Visit [facility] [address] [facility] [address] [place] [address] Cassius Patel MD 112 [facility] [address] [place] [address] documented as of this encounter Procedures Procedure NamePriorityDate/TimeAssociated DiagnosisCommentsALL CBC WITH AUTO DYULXmqmocq31/03/2025 11:54 AM EST ALL BASIC METABOLIC LHTLTPdkkyuz36/03/2025 11:54 AM EST [facility] MICROALB CREAT RATIO GJKQQTDgebzvj55/03/2025 11:43 AM EST documented in this encounter Results * ALL CBC WITH AUTO DIFF (08/02/2025 11:54 AM EST)ComponentValueRef RangeTest MethodAnalysis TimePerformed AtPathologist SignatureTBH WBC7.14.0 - 11.0 10 3/uLTBHTBH RBC4.624.20 - 5.40 10 6/uLTBHTBH HGB14.712.0 - 16.0 g/dLTBHTBH HCT 44.836.0 - 48.0 %TBHTBH MCV97.081.0 - 99.0 fLTBHTBH MCH31.826.7 - 34.0 pgTBH TBH MCHC32.829.9 - 35.2 g/dLTBHTBH RDW13.811.0 - 15.0 %TBHTBH AUV157951 - 450 10 3/uLTBHTBH MPV10.49.5 - 13.5 fLTBHNEUTROPHILS PERCENT AUTO65.043.0 - 75.0 % TBHLYMPHOCYTES PERCENT AUTO21.620.5 - 60.0 %TBHMONOCYTES PERCENT AUTO10.91.7 - 12.0 %TBHTBH EO %1.70.9 - 7.0 %TBHBASOPHILS PERCENT AUTO0.70.2 - 2.0 %TBH IMMATURE GRANULOCYTES PCT AUTO0.10.0 - 0.5 %TBHNEUTROPHILS ABSOLUTE AUTO4.61.4 - 6.5 10 3/uLTBHLYMPHOCYTES ABSOLUTE AUTO1.51.2 - 3.8 10 3/uLTBHMONOCYTES ABSOLUTE AUTO0.80.3 - 0.8 10 3/uLTBHTBH EO #0.10.0 - 0.7 10 3/uLTBHBASOPHILS ABSOLUTE AUTO0.10.0 - 0.1 10 3/uLTBHIMMATURE GRANULOCYTES ABS AUTO0.010.00 - 0.03 10 3/uLTBHSpecimen (Source)Anatomical Location / LateralityCollection Method / VolumeCollection TimeReceived Time08/02/2025 11:54 AM EST08/02/2025 11:55 AM EST Narrative CLINISYNC - 08/02/2025 12:40 PM EST Authorizing ProviderResult TypeResult StatusGeneric External Data Provider CLINISYNCFinal ResultPerforming OrganizationAddressty/State/ZIP CodePhone Number [facility] * (ABNORMAL) ALL BASIC METABOLIC PANEL (08/02/2025 11:54 AM EST)ComponentValue Ref RangeTest MethodAnalysis TimePerformed AtPathologist ZnuscsdxtQJIEIH163502 - 145 mmol/LTBHPOTASSIUM4.43.5 - 5.1 mmol/EVNYOZJHQBFB86788 - 107 mmol/LTBH CARBON UHMZKBG05.521.0 - 32.0 mmol/LTBHANION GAP16.7APCHCWHERA7595 - 106 mg/dL TBHBLOOD UREA ZFMZEGLM27.0(H)7.0 - 18.0 mg/dLTBHCREATININE1.31(H)0.55 - 1.02 mg/dLTBHTBH EGFR-AF TAGXGBUX02(L)>=60 mL/min/1.73m 2TBHTBH EGFR-NON AF KFJAQQJU32(L)>=60 mL/min/1.73m 2TBHBUN CREATININE RATIO28.2DPRFEWTAJQ0.68.5 - 10.1 mg/dLTBHSpecimen (Source)Anatomical Location / LateralityCollection Method / VolumeCollection TimeReceived Time08/02/2025 11:54 AM EST08/02/2025 11:55 AM EST Narrative CLINISYWY - 08/02/2025 12:28 PM EST Authorizing ProviderResult TypeResult StatusGeneric External Data Provider CLINISYNCFinal ResultPerforming OrganizationAddressty/State/ZIP CodePhone Number [facility] * TBH MICROALB CREAT RATIO RANDOM (08/02/2025 11:43 AM EST)ComponentValueRef RangeTest MethodAnalysis TimePerformed AtPathologist SignatureMICROALBUMIN URINE RANDOM<1.3<=30.0 mg/dLTBHCREATININE URINE GJXMYE88.1220.00 - 300.00 mg/dLTBHSpecimen (Source)Anatomical Location / LateralityCollection Method / VolumeCollection TimeReceived Time08/02/2025 11:43 AM EST08/02/2025 11:57 AM EST Narrative CLINISYNC - 08/02/2025 12:28 PM EST Authorizing ProviderResult TypeResult StatusEdandry aPtel MDCLINISYNCFinal ResultPerforming OrganizationAddressCity/State/ZIP CodePhone Number [facility] documented in this encounter Visit Diagnoses Not on filedocumented in this encounter Additional Health Concerns AssessmentNoted TimePHQ-9 Depression Total Score: 10:00 AM EST documented as of this encounter Care Teams Team MemberRelationshipSpecialtyStart DateEnd Date Cassius Patel MD [address] [address] (Fax) PCP - GeneralFamily Wznxufhm44/17/24 Cassius Patel MD [address] [address] (Fax) PCP - [place]05/31/25 Erasmo Cole MD [address] [place] [phone] CardiologistFamily Iokcwflh25/17/24 Saurav Girard MD [address] [place] [address] Gttwcidldwgvo20/17/24 Suzanna Olmos RN [address] [address] Registered NurseFamily Ocqprjbz32/6/24documented as of this encounter
--- OUTSIDE RECORDS SUMMARY | 2025-08-10 10:17 | XMS_ITS | Encounter Summary ---
Author Organization [facility] Address [address] [place] [address] Care Team Providers Care Postal Service Clerk Name Role Phone Cassius Patel MD Primary Care Provider [phone] Erasmo Cole MD Unavailable [phone] Saurav Girard MD Unavailable [phone] Suzanna Olmos RN Unavailable [phone] Cassius Patel MD Unavailable [phone] Encounter Details DateTypeDepartmentCare Team (Latest Contact Info)Glmzoxouksa60/03/2025Orders Only [facility] [address] [address] Saurav Girard MD [address] [place] [address] Social History Tobacco UseTypesPacks/DayYears UsedDateSmoking Tobacco: NeverPassive Smoke Exposure: NeverSmokeless Tobacco: NeverAlcohol UseStandard Drinks/WeekComments Never0 (1 standard drink = 0.6 oz pure alcohol)jlfhtdguD5589 Health Literacy AnswerDate RecordedHow often do you need to have someone help you when you read instructions, pamphlets, or other written material from your doctor or pharmacy? Yjjveaojr10/17/2024Humiliation, Afraid, Rape, and Kick questionnaireAnswerDate RecordedWithin the [...] with Friends and FamilyNot on file04/01/2025 Attends Mu-Ism ServicesNot on file04/01/2025tive Member of Clubs or OrganizationsNot on file04/01/2025ttends Club or Organization MeetingsNot on file04/01/2025re you , , , , never , or living with a partner?Lexzufq1704/01/2025UDIT-CAnswerDate RecordedQ1: How often do you have a [...] hard at all06/16/2024HQ-2AnswerDate Recorded Patient Health Questionnaire-2 Jeamr09410/02/2024[facility] [place] of Occupational Health - Occupational Stress QuestionnaireAnswerDate [...] steady place to sleep or slept in [facility] (including now)?No 02/18/2023Housing Stability Vital SignAnswerDate RecordedIn the last 12 months, was there a time when you were not able to pay the mortgage or rent on time?No 06/16/2024Number of Times Moved in the Last YearNot on file06/16/2024t any time in the past 12 months, were you homeless or living in a retirement (including now)? No06/16/2024CommentsNoSex and Gender InformationValueDate RecordedSex Assigned at BirthNot on fileLegal FrgCfassh17/15/2023 6:48 PM EDTGender Identity Not on fileSexual OrientationNot on filedocumented as of this encounter Functional Status * Over the past 2 weeks, how often have you been bothered by any of the following problems?QuestionAnswerDate of AssessmentAuthorLittle interest or pleasure in doing thingsNot at all08/02/2025 10:00 AM Raquel Mauro MA Feeling down, depressed, or hopelessNot at all08/02/2025 10:00 AM Nj December, MAPatient Health Questionnaire-2 Nxzij52010/02/2024 10:00 AM Raquel Mauro MA * QuestionAnswerDate of AssessmentAuthorTrouble falling or staying asleep, or sleeping too muchNot at all08/02/2025 10:00 AM NjDecember, MAFeeling tired or having little energyNot at all08/02/2025 10:00 AM BradzenaDecember, MAPoor appetite or overeatingNot at all08/02/2025 10:00 AM NjDecember, MAFeeling bad about yourself - or that you are a failure or have let yourself or your family downNot at all08/02/2025 10:00 AM NjDecember, MATrouble concentrating on things, such as reading [...] all08/02/2025 10:00 AM NjDecember, MAPatient Health Questionnaire-9 Xhoid64710/02/2024 10:00 AM Raquel Mauro MA documented as of this encounter Plan of Treatment DateTypeDepartmentCare Team (Latest Contact Info)Krgbwnqpkxv58/06/2026 11:00 AM ESTOffice Visit [facility] [address] [facility] 100 [place] [address] Cassius Patel MD 112 [facility] 100 [place] [address] documented as of this encounter Procedures Procedure NamePriorityDate/TimeAssociated DiagnosisCommentsDIABETIC RETINOPATHY SCREENING - OU - BOTH APBEVsqlmkl17/03/2025 3:32 PM ESTdocumented in this encounter Results * Diabetic Retinopathy Screening - OU - Both Eyes (08/02/2025 3:32 PM EST) Anatomical RegionLateralityModalityHeadOther Narrative Authorizing ProviderResult TypeResult StatusKenrebeca Girard NHOPH PHOTOGRAPHYFinal Result documented in this encounter Visit Diagnoses Not on filedocumented in this encounter Additional Health Concerns AssessmentNoted TimePHQ-9 Depression Total Score: 10:00 AM EST documented as of this encounter Care Teams Team MemberRelationshipSpecialtyStart DateEnd Date Cassius Patel MD [address] [address] PCP - GeneralFamily Jiifwuzy21/17/24 Cassius Patel MD [address] [address] (Fax) PCP - [place]05/31/25 Earsmo Cole MD [address] [place] [phone] CardiologistFamily Vjbjieux25/17/24 Saurav Girard MD [address] [place] [address] Ktpvbumrzzani63/17/24 Suzanna Olmos, ISABELLE [address] [address] Registered NurseFamily Pghblaml95/6/24documented as of this encounter
--- OUTSIDE RECORDS SUMMARY | 2025-08-10 10:17 | XMS_ITS | Encounter Summary ---
Author Organization [facility] Address [address] [place] [address] Care Team Providers Care School Community Relations Coordinator Name Role Phone Cassius Patel MD Primary Care Provider [phone] Erasmo Cole MD Unavailable [phone] Saurav Girard MD Unavailable [phone] Suzanna Olmos RN Unavailable [phone] Cassius Patel MD Unavailable [phone] Encounter Details DateTypeDepartmentCare Team (Latest Contact Info)Kvsbjmysilx13/03/2025Travel Social History Tobacco UseTypesPacks/DayYears UsedDateSmoking Tobacco: NeverPassive Smoke Exposure: NeverSmokeless Tobacco: NeverAlcohol UseStandard Drinks/WeekComments Never0 (1 standard drink = 0.6 oz pure alcohol)bkqawpgeF2252 Health Literacy AnswerDate RecordedHow often do you need to have someone help you when you read instructions, pamphlets, or other written material from your doctor or pharmacy? Mkvvjbdaw31/17/2024Humiliation, Afraid, Rape, and Kick questionnaireAnswerDate RecordedWithin the [...] with Friends and FamilyNot on 04/01/2025 Attends Jewish ServicesNot on 04/01/2025tive Member of Clubs or OrganizationsNot on file04/01/2025ttends Club or Organization MeetingsNot on 04/01/2025re you , , , , never , or living with a partner?Jqburpj9404/01/2025UDIT-CAnswerDate RecordedQ1: How often do you have a [...] hard at all06/16/2024HQ-2AnswerDate Recorded Patient Health Questionnaire-2 Npokw54310/02/2024[facility] [place] of Occupational Health - Occupational Stress QuestionnaireAnswerDate [...] steady place to sleep or slept in [facility] (including now)?No 02/18/2023Housing Stability Vital SignAnswerDate RecordedIn the last 12 months, was there a time when you were not able to pay the mortgage or rent on time?No 06/16/2024Number of Times Moved in the Last YearNot on file06/16/2024t any time in the past 12 months, were you homeless or living in a residential (including now)? No06/16/2024CommentsNoSex and Gender InformationValueDate RecordedSex Assigned at BirthNot on fileLegal HcbKalzpk42/15/2023 6:48 PM EDTGender Identity Not on fileSexual OrientationNot on filedocumented as of this encounter Functional Status * Over the past 2 weeks, how often have you been bothered by any of the following problems?QuestionAnswerDate of AssessmentAuthorLittle interest or pleasure in doing thingsNot at all08/02/2025 10:00 AM Nj, December, [place] Feeling down, depressed, or hopelessNot at all08/02/2025 10:00 AM Nj, December, KAROLINAatient Health Questionnaire-2 Jigqz96710/02/2024 10:00 AM Nj RaquelCALE * QuestionAnswerDate of [...] all08/02/2025 10:00 AM December, MAPatient Health Questionnaire-9 Ynrqg35210/02/2024 10:00 AM Nj December, [place] documented as of this encounter Plan of Treatment DateTypeDepartmentCare Team (Latest Contact Info)Elxbxeemvbf41/06/2026 11:00 AM ESTOffice Visit [facility] 112 [facility] 100 [place] [address] Cassius Patel MD 112 [facility] 100 [place] [address] (Fax) documented as of this encounter Visit Diagnoses Not on filedocumented in this encounter Additional Health Concerns AssessmentNoted TimePHQ-9 Depression Total Score: 10:00 AM EST documented as of this encounter Care Teams Team MemberRelationshipSpecialtyStart DateEnd Date Cassius Patel MD [address] [place] [address] (Fax) PCP - GeneralFamily Lttkyzjc77/17/24 Cassius Patel MD 112 [facility] 100 [place] [address] (Fax) PCP - [place] MADSEN05/31/25 Erasmo Cole MD [address] [place] [phone] (Fax) CardiologistFamily Xogjcyvu24/17/24 Saurav Girard MD [address] [place] [address] Mptpoyoqhtuss71/17/24 Suzanna Olmos, ISABELLE [address] [facility] [address] [place] [address] Registered NurseFamily Poutkmje66/6/24documented as of this encounter
--- OUTSIDE RECORDS SUMMARY | 2025-08-10 10:17 | XMS_ITS ---
Author Organization [facility] Address [address] [place] [address] Care Team Providers Care Digital Marketing Associate Name Role Phone Cassius Patel MD Primary Care Provider [phone] Active Problems ProblemNoted DateDiagnosed DateParoxysmal atrial nqklteoeyexr92/06/2025 Overview (07/06/2025): PAROXYSMAL ATRIAL FIBRILLATION ,Rendering provider NPI :[id number] Chronic rxowyadvwxcf40/22/2025Controlled substance agreement fnbefo1907/28/2024 History of breast xyidee1707/28/2024 Overview (09/14/2024): Left Mastectomy 2002 Mobitz type 2 second degree heart block07/16/2024ostural kyphosis of cervicothoracic egonsw4207/16/2024Other chest pain06/11/2024Fall03/26/2024 Overview (06/08/2024): Last Assessment & Plan: Recent fall, she tripped over something. Otherwise, stable gait and no unsteadiness. No need for cane/walker. Routine general medical examination at health care /22/2023 Overview (03/20/2023): Last Assessment & Plan: Labs, vaccinations and safety reviewed. 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 On GDMT for HFrEF. BP is stable. Denies orthostasis. Rphedbgja08/24/2022Generalized ischemic myocardial twgxgakfihd38/24/2022 Skofzglribligo08/24/2022Low blood fzvisyez04/24/2022bnormal results of cardiovascular function akcjfij2206/20/2021Other chronic pain08/16/2020Ventricular ovnauzfafcb21/25/2019 Overview (03/20/2023): Last Assessment & Plan: Per cardiology Chronic systolic heart gpamxlq2612/22/2018 Overview (03/20/2023): Last Assessment & Plan: Per cardiology Decreased estrogen level12/18/2018Primary malignant neoplasm of plfmuq5111/30/2015 Type 2 diabetes mellitus without iooklzchkvys99/05/2016Congestive heart failure 04/30/2013Coronary bykkyzjonzqssxx78/01/2013Heart block04/30/2013Nonrheumatic tricuspid valve tdqorbou61/01/2013Primary mffmmaauviobiu31/01/2013 Overview (08/25/2024): ISCHEMIC CARDIOMYOPATHY Cardiac pacemaker in situ04/28/2013 Current Treatment and Therapy Plans No current plan information found. Past Treatment and Therapy Plans No past plan information found. Lifetime Dose Tracking * ChemicalLifetime DoseAutomatic EntryManual EntryFluoro Time4.7 minutes0 minutes4.7 minutesAir Kerma10 mGy0 mGy10 mGyDose Area Product1,250 mGy-cm20 mGy-cm21,250 mGy-cm2
--- OUTSIDE RECORDS SUMMARY | 2025-08-10 10:17 | XMS_ITS | Encounter Summary ---
Author Organization [facility] Address [address] [place] [address] Care Team Providers Care Park Services Specialist Name Role Phone Cassius Patel MD Primary Care Provider [phone] Encounter Details DateTypeDepartmentCare Team (Latest Contact Info)Tpyecuoedzv79/10/2025Travel Social History Tobacco UseTypesPacks/DayYears UsedDateSmoking Tobacco: NeverSmokeless Tobacco: NeverAlcohol UseStandard Drinks/WeekCommentsNot Currently0 (1 standard drink = 0.6 oz pure alcohol)UT Safety & EnvironmentAnswerDate RecordedFear of Current or Ex-PartnerNot on file11/21/2023Emotionally AbusedNot on file11/21/2023hysically AbusedNot on file11/21/2023Sexually AbusedNot on file11/21/2023hysically or Sexually AbusedNot on file11/21/2023CommentsUnknownSex and Gender InformationValueDate RecordedSex Assigned at NxiakTjrwtu37/02/2024 11:11 PM EDT Legal UxwGdksma78/29/2022 11:05 PM EDTGender OwrhrznmFbcfbd13/02/2024 11:11 PM EDTSexual OrientationChoose not to savjyhmo85/04/2025 9:18 PM EDTdocumented as of this encounter Functional Status * QuestionAnswerDate of QfxbamnoiqDxjmloIU528/6008/09/2025 11:30 AM Ladi Chin RNPulse7608/09/2025 11:30 AM Ladi Chin RN * Pain Assessment TimerQuestionAnswerDate of AssessmentAuthorRestart Pain Assessment YdrzgSkj60/10/2025 11:30 AM Ladi Chin RN * Sepsis Model ScoresQuestionAnswerDate of AssessmentAuthorEarly Detection of Sepsis Score3.9110/09/2024 11:46 AM ESTChronicles, Batchq * Pain AssessmentQuestionAnswerDate of AssessmentAuthorPain AssessmentNo/denies pain08/09/2025 11:30 AM Ladi Chin RN * QuestionAnswerDate of AssessmentAuthorPulse rate from Plethysmogram (bpm)77 08/09/2025 11:00 AM Ladi Chin RN * Vital SignsQuestionAnswerDate of VhfnpvhxidJzpximBU342/6008/09/2025 11:30 AM Ladi Chin MWRsuba2746/10/2025 11:30 AM Ladi Chin RNResp20 08/09/2025 11:30 AM Ladi Chin RNSpO29808/09/2025 11:30 AM Ladi Chin RNMAP (mmHg)6108/09/2025 11:00 AM Ladi Chin RN * RespiratoryQuestionAnswerDate of AssessmentAuthorBilateral Breath Sounds Clear;Opsplsxdko98/10/2025 7:03 AM Ladi Chin RNRespiratory Effort Vaqpewvjt42/10/2025 7:03 AM Ladi Chin RNRespiratory Depth/Rhythm Zflxlic3508/09/2025 7:03 AM Ladi Chin RNBreath SoundsBilateral breath vopwzg0808/09/2025 7:03 AM Ladi Chin RN * NeurologicalQuestionAnswerDate of AssessmentAuthorLevel of ConsciousnessAlert 08/09/2025 7:03 AM Ladi Chin RNOrientation LevelOriented X4110/09/2024 7:03 AM Ladi Chin RNCognitionAppropriate pttejxkad65/10/2025 7:03 AM Ladi Chin RNSpeechClear110/09/2024 7:03 AM Ladi Chin RN * Pain AssessmentQuestionAnswerDate of AssessmentAuthorPain AssessmentNo/denies pain08/09/2025 11:30 AM Ladi Chin RN * Davison Suicide Severity Rating ScaleQuestionAnswerDate of AssessmentAuthor1. Have you wished you were or wished you could go to sleep and not wake up? No08/09/2025 7:04 AM Ladi Chin RN2. Have you actually had any thoughts of killing yourself?No08/09/2025 7:04 AM Ladi Chin RN6. Have you ever done anything, started to do anything, or prepared to do anything to end your life?No08/09/2025 7:04 AM Ladi Chin RN * Risk of SuicideAnswerDate of AssessmentAuthorNo Risk08/09/2025 7:04 AM Ladi Cintron RN * Modified AldreteQuestionAnswerDate of EkivjtjowmDfdpafMydxwijx840/10/2025 11:31 AM Ladi Chin RNRespiration2110/09/2024 11:31 AM Ladi Chin RNCirculation2110/09/2024 11:31 AM Ladi Chin RNConsciousness2 08/09/2025 11:31 AM Ladi Chin RNOxygen Aogiyxurvl853/10/2025 11:31 AM Ladi Chin RNModified Jamila Lajkj7994 11:31 AM Ladi Chin RN documented as of this encounter Mental Status * Kessler Agitation Sedation ScaleQuestionAnswerEntry DateAuthorRichmond Agitation Sedation Scale (RASS)- 9:15 AM Marielos Cali RN * Modified AldreteQuestionAnswerEntry BcycYltkmyRikbzxtr567/10/2025 11:31 AM EST Ladi Chacon RNRespiration2110/09/2024 11:31 AM Ladi Chin RN Vjqccosuvnh246/10/2025 11:31 AM Ladi Chin RNConsciousness2110/09/2024 11:31 AM Ladi Chin RNOxygen Jxoyoodxdm403/10/2025 11:31 AM EST Ladi Chacon RNModified Jamila Qasdu8685 11:31 AM Ladi Chin RN documented in this encounter Plan of Treatment DateTypeDepartmentCare Team (Latest Contact Info)Ldwhyujtftm72/20/2025 1:20 PM ESTFollow-Up [facility] [address] [place] [phone] Lei Mendoza, PLASTICS FABRICATOR [address] [place] [address] documented as of this encounter Visit Diagnoses Not on filedocumented in this encounter Care Teams Team MemberRelationshipSpecialtyStart DateEnd Date Cassius Patel MD [address] [place] [address] (Fax) PCP - Inwfmzs82/26/24documented as of this encounter
--- OUTSIDE RECORDS SUMMARY | 2025-08-10 10:17 | XMS_ITS | Encounter Summary ---
Author Organization [facility] Address [address] [place] [address] Care Team Providers Care [employer] Specialist Name Role Phone Cassius Patel MD Primary Care Provider [phone] Erasmo Cole MD Unavailable [phone] Saurav Girard MD Unavailable [phone] Suzanna Olmos RN Unavailable [phone] Cassius Patel MD Unavailable [phone] Encounter Details DateTypeDepartmentCare Team (Latest Contact Info)Ngqblcbxlth79/06/2025Patient Outreach [facility] [address] [place] [address] Suzanna Olmos, RN [address] [facility] [address] [place] [address] Social History Tobacco UseTypesPacks/DayYears UsedDateSmoking Tobacco: NeverPassive Smoke Exposure: NeverSmokeless Tobacco: NeverAlcohol UseStandard Drinks/WeekComments Never0 (1 standard drink = 0.6 oz pure alcohol)[id number] Health Literacy AnswerDate RecordedHow often do you need to have someone help you when you read instructions, pamphlets, or other written material from your doctor or pharmacy? Povitwvtg11/17/2024Humiliation, Afraid, Rape, and Kick questionnaireAnswerDate RecordedWithin the [...] with Friends and FamilyNot on file04/01/2025 Attends Cheondoism ServicesNot on file04/01/2025tive Member of Clubs or OrganizationsNot on file04/01/2025ttends Club or Organization MeetingsNot on file04/01/2025re you , , , , never , or living with a partner?Egkgykb8504/01/2025UDIT-CAnswerDate RecordedQ1: How often do you have a [...] hard at all06/16/2024HQ-2AnswerDate Recorded Patient Health Questionnaire-2 Mtmfu70510/02/2024[place] [facility] [place] of Occupational Health - Occupational Stress QuestionnaireAnswerDate [...] steady place to sleep or slept in [facility] (including now)?No 02/18/2023Housing Stability Vital SignAnswerDate RecordedIn the last 12 months, was there a time when you were not able to pay the mortgage or rent on time?No 06/16/2024Number of Times Moved in the Last YearNot on file06/16/2024t any time in the past 12 months, were you homeless or living in a senior care (including now)? No06/16/2024CommentsNoSex and Gender InformationValueDate RecordedSex Assigned at BirthNot on fileLegal JljCzaiof14/15/2023 6:48 PM EDTGender Identity Not on fileSexual OrientationNot on filedocumented as of this encounter Progress Notes * Suzanna Olmos RN - 08/05/2025 9:59 AM EST Chart reviewed. Cp due. Called pt's daughter, Addie for monthly monitor call. Pt is doing well. Pt is scheduled to have surgery on 08/09, needs pacemaker replaced. Pt follows with Cardiology Dr Rosario. Reports pt is taking her medications as ordered, no refills needed. No changes to medications at this time. Pt is exercising, treadmill is currently not working. Pt is using bike pedal motor vehicle representative. Ptwas walking 30 minutes on treadmill each day. Addie reports no falls, no questions or concerns at this time. Discussed CCM services, would like services to continue. Discussed CP, reviewed/updated. Has active mychart, will be pulled in to chart. Discussed immunizations. Pt's care gaps are met. Encouraged to call when needs arise. * Suzanna Olmos RN - 08/05/2025 9:59 AM EST Images from the original note were not included. 08/05/2025 Daysi Hood 1935 [address] [facility] [address] Problem: Patient/Caregiver Additional Support Needed Goal: Patient receives support from community resources enhancing ability to remain at home Intervention: Discuss current family support with patient Intervention: Refer to appropriate resources , Problem: History of Falls/Fall Risk Goal: Patient will not sustain falls Intervention: Educate/Review age appropriate fall risk preventive measures , Problem: Heart failure maintenance Goal: Patient will not experience any symptoms of shortness of breath or body swelling over the next 3 months Intervention: Schedule regular provider visits for close monitoring of CHF. If patient has not seenPCP within the past 6 months, schedule a follow up appointment Intervention: Educate patient to monitor symptoms and weight changes, restrict sodium intake, take medications as prescribed, and stay physically active , Problem: Chronic Conditions and Co-morbidities Goal: Patient's chronic conditions and co-morbidity symptoms are monitored and maintained or improved Description: INTERVENTIONS: Intervention: Review progress of chronic disease symptom management with Patient/Parent/Caregiver , and Problem: Chronic Conditions/CCM Participation Goal: Pt will utilize phone monitoring to communicate changes and to address any questions/concernsregarding health and/or any changes regarding healthcare. Communicate specialist appointments Intervention: Provide education for appropriate maintenance of chronic health conditions. Collaborate with outside resources as needed. Monitor medication management documented in this encounter Plan of Treatment DateTypeDepartmentCare Team (Latest Contact Info)Vpqgwnzefqd26/06/2026 11:00 AM ESTOffice Visit [facility] [address] [facility] [address] [place] [address] Cassius Patel MD [address] [facility] [address] [place] [address] (Fax) documented as of this encounter Visit Diagnoses Diagnosis Type 2 diabetes mellitus with stage 3b chronic kidney disease, without long-term current use of insulin (HCC)- Primary Chronic combined systolic and diastolic congestive heart failure (HCC) Essential hypertension Unspecified essential hypertension documented in this encounter Additional Health Concerns AssessmentNoted TimePHQ-9 Depression Total Score: 10:00 AM EST documented as of this encounter Care Teams Team MemberRelationshipSpecialtyStart DateEnd Date Cassius Patel MD [address] [facility] [address] [place] [address] (Fax) PCP - GeneralFamily Xgmrqgky61/17/24 Cassius Patel MD 112 [facility] [address] [place] [address] (Fax) PCP - [place]05/31/25 Erasmo Cole MD [address] [place] [address] (Fax) CardiologistFamily Sfwgabbd45/17/24 Saurav Girard MD [address] [place] [address] Cdkqlsuhwqhcp60/17/24 Suzanna Olmos RN [address] [facility] [address] [place] [address] Registered NurseFamily Sxbgvveg41/6/24documented as of this encounter
--- OUTSIDE RECORDS SUMMARY | 2025-08-10 10:17 | XMS_ITS | Encounter Summary ---
Author Organization [facility] Address [address] [place] [address] Care Team Providers Care Wood Molder Name Role Phone Cassius Patel MD Primary Care Provider [phone] Erasmo Cole MD Unavailable Saurav Girard MD Unavailable [phone] Suzanna Olmos RN Unavailable Cassius Patel MD Unavailable [phone] Encounter Details DateTypeDepartmentCare Team (Latest Contact Info)Fmatakzrwfx74/03/2025Telephone [facility] [address] Medicine [address] [facility] [address] [place] [address] Cassius Patel MD 112 [facility] [address] [place] [address] Social History Tobacco UseTypesPacks/DayYears UsedDateSmoking Tobacco: NeverPassive Smoke Exposure: NeverSmokeless Tobacco: NeverAlcohol UseStandard Drinks/WeekComments Never0 (1 standard drink = 0.6 oz pure alcohol)[id number] Health Literacy AnswerDate RecordedHow often do you need to have someone help you when you read instructions, pamphlets, or other written material from your doctor or pharmacy? Nkfnevgrb37/17/2024Humiliation, Afraid, Rape, and Kick questionnaireAnswerDate RecordedWithin the [...] with Friends and FamilyNot on file04/01/2025 Attends Episcopalian ServicesNot on file04/01/2025tive Member of Clubs or OrganizationsNot on file04/01/2025ttends Club or Organization MeetingsNot on file04/01/2025re you , , , , never , or living with a partner?Fpljtmi9204/01/2025UDIT-CAnswerDate RecordedQ1: How often do you have a [...] hard at all06/16/2024HQ-2AnswerDate Recorded Patient Health Questionnaire-2 Vkqsf80010/02/2024[facility] [place] of Occupational Health - Occupational Stress QuestionnaireAnswerDate [...] steady place to sleep or slept in [facility] (including now)?No 02/18/2023Housing Stability Vital SignAnswerDate RecordedIn the last 12 months, was there a time when you were not able to pay the mortgage or rent on time?No 06/16/2024Number of Times Moved in the Last YearNot on file06/16/2024t any time in the past 12 months, were you homeless or living in a jail (including now)? No06/16/2024CommentsNoSex and Gender InformationValueDate RecordedSex Assigned at BirthNot on fileLegal HubQfogev81/15/2023 6:48 PM EDTGender Identity Not on fileSexual OrientationNot on filedocumented as of this encounter Functional Status * Over the past 2 weeks, how often have you been bothered by any of the following problems?QuestionAnswerDate of AssessmentAuthorLittle interest or pleasure in doing thingsNot at all08/02/2025 10:00 AM Raquel Mauro, CALE Feeling down, depressed, or hopelessNot at all08/02/2025 10:00 AM Nj December, MAPatient Health Questionnaire-2 Yfuma90310/02/2024 10:00 AM Raquel Mauro MA * QuestionAnswerDate [...] all08/02/2025 10:00 Nj December, MAPatient Health Questionnaire-9 Aozxf51810/02/2024 10:00 AM Raquel Mauro MA documented as of this encounter Miscellaneous Notes * Telephone Encounter - Cassius Patel MD - 08/02/2025 2:17 PM EST Previous discussion and her daughter and her where unsure of what her DNR status was as far as CC or CCA. <May 28, 2024, 12:03 - SANDRA Sandoval> Noted pt has DNRCC, signed by Dr. Locke 03/26/24. She has an upcoming surgery to replace her pacemaker due to end of life For the battery. She shouldcontact her doctor as they may need to rescind this in order to proceed with that. documented in this encounter Plan of Treatment DateTypeDepartmentCare Team (Latest Contact Info)Dviavedajhz85/06/2026 11:00 AM ESTOffice Visit [facility] [place] [address] [facility] [address] [place] [address] [place] [address] Cassius Patel MD [address] [place] [address] (Fax) documented as of this encounter Visit Diagnoses Not on filedocumented in this encounter Additional Health Concerns AssessmentNoted TimePHQ-9 Depression Total Score: 10:00 AM EST documented as of this encounter Care Teams Team MemberRelationshipSpecialtyStart DateEnd Date Cassius Patel MD [address] [place] [address] (Fax) PCP - GeneralFamily Nfvedjrf52/17/24 Cassius Patel MD [address] [place] [address] (Fax) PCP - [place]05/31/25 Erasmo Cole MD [address] [place] [address] (Fax) CardiologistFamily Ejcirtre75/17/24 Saurav Girard MD [address] [place] [address] Xujbpiaeejtsp68/17/24 Suzanna Olmos, ISABELLE [address] [facility] [address] [place] [address] Registered NurseFamily Wosrlkon15/6/24documented as of this encounter
--- OUTSIDE RECORDS SUMMARY | 2025-08-10 10:17 | XMS_ITS | Clinical Summary ---
Author Organization [facility] Address [address] [place] [address] Care Team Providers Care Farm Adviser Name Role Phone Cassius Patel MD Primary Care Provider [phone] Erasmo Johnson MD Unavailable Saurav Girard MD Unavailable Suzanna Olmos RN Unavailable Cassius Patel MD Unavailable [phone] Allergies Active AllergyReactionsCriticalityNoted SolzNoqbtochHdxzdobtHqckw48/19/2023 XbwpwomyomtginGcdmc19/19/2023 Medications MedicationSigDispense QuantityRefillsLast FilledStart DateEnd DateStatus atorvastatin [...] mg before bedtime.Active Blood Glucose Monitoring Suppl ([employer]) w/Device kit Indications:Type 2 diabetes mellitus with stage 3b chronic kidney disease, without long-term current use of insulin ([facility])Check BS bid prn 1 kit 5Active glucose blood ([employer]) test strip Indications:Type 2 diabetes mellitus with stage 3b chronic kidney disease, without long-term current use of insulin ([facility])Check BS bid prn 100 strip 5Active Lancets (Mojo Mobility Delica Plus Tunmjt16T) [facility] Indications:Type 2 diabetes mellitus with stage 3b chronic kidney disease, without long-term current use of insulin ([facility])Check BS bid prn 100 each [...] of day reported), Reported on 08/02/2025 HYDROcodone-acetaminophen ([place]) 5-325 MG tablet Indications:Chronic pain syndromeTake 1 tablet by mouth Daily as needed for moderate pain Do not start before September 11, 2025. 30 tablet 09/11//ctive HYDROcodone-acetaminophen ([place]) 5-325 MG tablet Indications:Chronic pain syndromeTake 1 tablet by mouth Daily as needed for severe pain Do not start before August 12, 2025. 30 tablet 08/12/20241001/5Active HYDROcodone-acetaminophen ([place]) 5-325 MG tablet Indications:Chronic pain syndromeTake 1 [...] mEq by mouth Daily08/02/2025Discontinued(Med list cleanup) HYDROcodone-acetaminophen ([place]) 5-325 MG tablet Indications:Chronic pain syndromeTake 1 tablet by mouth Daily as needed for severe pain or moderate pain 30 tablet /Discontinued(Reorder) HYDROcodone-acetaminophen ([place]) 5-325 MG tablet Indications:Chronic pain syndromeTake 1 tablet by mouth Daily as needed for moderate pain Do not start before June 12, 2025. 30 tablet /Discontinued(Reorder) HYDROcodone-acetaminophen ([place]) 5-325 MG tablet Indications:Chronic pain syndromeTake 1 [...] (07/27/2025): SICK SINUS SYNDROME ,Rendering provider NPI :[id number] Paroxysmal atrial uludumomcgad27/06/2025 Overview (07/05/2025): PAROXYSMAL ATRIAL FIBRILLATION ,Rendering provider NPI :[id number] Chronic tlokywkysail95/22/7830Xotjmlldlrwb10/02/2024History of breast cancer 07/28/2024 Overview (07/28/2024): Left Mastectomy 2002 Controlled substance agreement cfdnov004Postural kyphosis of cervicothoracic qzjbqj8507/16/2024Mobitz type 2 second degree heart block 4Atherosclerosis of menominee coronary artery of [place]ominee heart without angina nefsfoai45/15/2023 Assessment & Plan (02/18/2023 4:02 PM EDT): Per dr johnson rcent stress test was abnl has follow up scheduled Cardiac LV ejection fraction of 20-34%02/11/2023 Assessment & Plan (02/18/2023 4:02 PM EDT): Per cardiology Chronic systolic heart dzlwjih1502/11/2023 Assessment & Plan (03/26/2024 10:32 AM EDT): [...] (02/18/2023 4:03 PM EDT): Per cardiology Primary dhwxeckxowoo89/15/2023 Assessment & Plan (06/16/2024 12:15 PM EDT): [...] Plan (02/18/2023 4:03 PM EDT): Overall stable Vwkntvxiqtzphz04/15/2023 Assessment & Plan (06/16/2024 12:15 PM EDT): [...] 4:06 PM EDT): Cont with atorvastatin Ischemic wnmccgriwhwqpw64/15/2023 Assessment & Plan (09/25/2023 1:22 PM EST): Improved EF. On GDMT. Follows Cardiology. Assessment & Plan (02/18/2023 4:03 PM EDT): Per cardiology Lumbosacral spondylosis without przmqqmnuu99/15/2023 Assessment & Plan (02/18/2023 4:05 PM EDT): Currently stable Chronic pain ogzbjiwb22/15/2023resence of cardiac lcstogisz43/15/2023 Assessment & Plan (02/18/2023 4:03 PM EDT): Managed by cardiology Stage 3b chronic kidney wpztkob0502/11/2023 Assessment & Plan (06/16/2024 12:17 PM EDT): [...] kidney disease, without long-term current use of glumzmv4102/11/2023 Assessment & Plan (06/16/2024 12:16 PM EDT): [...] active complaints to offer. Check A1C Ventricular bextlrrwbyg32/15/2023 Assessment & Plan (02/18/2023 4:04 PM EDT): Per cardiology Conduction disorder of the heart04/27/2014 Overview (03/26/2024): MOBITZ II S/P PACEMAKER PLACEMENT Congestive heart yizpddn9604/30/2013Nonrheumatic tricuspid valve disorder 04/30/2013 Overview (07/16/2024): TRICUSPID REGURGITATION, status post ring valvuloplasty Resolved Problems ProblemNoted DateDiagnosed DateResolved JyxtCpgc56 Assessment & Plan (03/26/2024 10:33 AM EDT): Recent fall, she tripped over something. Otherwise, stable gait and no unsteadiness. No need for cane/walker. Other dshdrhabxrwrlq39outine general medical examination at health care nnuwklrk10 Assessment & Plan (02/18/2023 4:12 PM EDT): Labs, vaccinations and safety reviewed. Primary malignant neoplasm of zzzvex64Heart block04/30/2013 07/16/2024 Overview (03/26/2024): MOBITZ II S/P PACEMAKER PLACEMENT Primary jrgohmgqxxpkkg46 Overview (10/19/2024): ISCHEMIC CARDIOMYOPATHY Encounters DateTypeDepartmentCare NjsgFkdwcpyimsa26/06/2025Patient Outreach [facility] [address] [place] [phone] Suzanna Olmos RN 08/02/2025 10:30 AM ESTOffice Visit [facility] [address] [place] [address] [place] [address] Cassius Patel MD Encounter for Medicare annual wellness exam (Primary Dx); Advance directive in chart; Encounter for screening for other disorder; Screening for alcohol problem; Type 2 diabetes mellitus with stage 3b chronic kidney disease, without long-term current use of insulin (HCC)08/02/2025Orders Only [facility] [place] [address] [place] [address] [place] [address] Saurav Girard MD 08/02/2025Telephone [facility] [place] [address] [place] [address] [place] [address] Cassius Patel MD 08/02/2025Results Follow-Up [facility] [address] [place] [address] Cassius Patel MD [facility] MICROALB CREAT RATIO PDVVWU085Clinisync Result Encounter [facility] External Department Unsolicited Provider, Generic External Data 08/02/2025amboo flowsheet [facility] [address] [place] [address] Cassius Patel MD 08/02/20254943Jggcgb19/14/2025 2:00 PM EDTOffice Visit [facility] [address] [place] [address] [place] [address] Cassius Patel MD Chronic pain syndrome; Controlled substance agreement signed; Type 2 diabetes mellitus with stage 3b chronic kidney disease, without long-term current use of insulin (HCC); Paroxysmal atrial fibrillation (HCC); Kdviqxkdqmjv72/14/2025Bamboo flowsheet [facility] [address] [place] [address] [place] [address] Cassius Patel MD 07/13/20256283Kokcck69/06/2025Patient Outreach [facility] [address] [place] [address] Suzanna Olmos RN 06/24/2025Patient Outreach [facility] [address] [place] [address] Suzanna Olmos RN 06/17/2025Telephone [facility] [address] [place] [address] Charlotte Blackmon MA 06/04/2025Patient Outreach [facility] [address] [place] [address] Suzanna Olmos RN 05/25/2025External Result Encounter [facility] [address] [facility] [address] [place] [address] Cassius Patel MD from Last 3 Months Immunizations ImmunizationAdministration DatesNext DueInfluenza, High Dose Seasonal, Preservative Free07/06/2025,08/05/2024,07/05/2017,07/10/2016,10/04/2015, 06/26/2013Influenza, High-dose Seasonal, Quadrivalent, Preservative Free 07/19/2022,08/04/2021,07/05/2017Influenza, Seasonal, Quadrivalent, Adjuvanted 07/11/2023,08/04/2021,06/27/2020Influenza, injectable, quadrivalent, preservative free06/27/2020,06/23/2019,06/23/2018Influenza, seasonal, injectable, preservative free06/28/2020Influenza, seasonal, intradermal, preservative free06/30/2014Influenza, trivalent, boksddihro73/24/2019Moderna SARS-CoV-2 Booster Dskzhevwsvj56/16/2022Pneumococcal Conjugate PCV 1303, 04/25/2015,04/21/2015Pneumococcal Polysaccharide PDPI0667RSV, recombinant, protein subunit RSVpreF, adjuvant reconstitu, 120mcg/0.5mL, PF (Arexvy)08/20/20245261PPAT-OqA-0, Idbvqpxyhyu40/13/1455Bbrt84/10/2024Zoster, Pnxzealxmnl91/24/2019,12/18/2018 Family History Medical HistoryRelationNameCommentsNo Known ProblemsDaughter6 daughter(s)Heart diseaseFatherEarl Vxujfe06 yrsHeart diseaseMotherOlive GilligRelationNameStatus CommentsDaughterAliveFatherEarl GilligDeceasedMotherOlive GilligDeceased Social History Tobacco UseTypesPacks/DayYears UsedDateSmoking Tobacco: NeverPassive Smoke Exposure: NeverSmokeless Tobacco: Never Tobacco Cessation:Counseling Given: Yes Alcohol UseStandard Drinks/WeekCommentsNever0 (1 standard drink = 0.6 oz pure alcohol)wyjrrbhgY9890 Health LiteracyAnswerDate RecordedHow often do you need to have someone help you when you read instructions, pamphlets, or other written material from your doctor or pharmacy?Fsxnqlgzx92/17/2024Humiliation, Afraid, Rape, and Kick questionnaireAnswerDate RecordedWithin the [...] with Friends and FamilyNot on file 04/01/2025ttends Mandaen ServicesNot on file04/01/2025tive Member of Clubs or OrganizationsNot on file04/01/2025ttends Club or Organization MeetingsNot on file04/01/2025re you , , , , never , or living with a partner?Cainmrx5604/01/2025UDIT-CAnswerDate RecordedQ1: How often do you have a [...] hard at all06/16/2024HQ-2AnswerDate Recorded Patient Health Questionnaire-2 Utstq01310/02/2024[facility] [place] [facility] of Occupational Health - Occupational Stress QuestionnaireAnswerDate [...] 12 months, how many places have you lived?105/22/2023In the last 12 months, was there a [...] or living in a penitentiary (including now)? No06/16/2024CommentsNoSex and Gender InformationValueDate RecordedSex Assigned at BirthNot on fileLegal OujVkrqeg15/15/2023 6:48 PM EDTGender Identity Not on fileSexual OrientationNot on file Last Filed Vital Signs Vital SignReadingTime TakenCommentsBlood Fejuudma499/7611 10:41 AM EST Tslqm401008/02/2025 10:41 AM ACMVjsbxclcbum52.2 ??C (97.2 ??F)06/16/2024 9:29 AM EDTRespiratory Ymmu192410/13/2022 9:05 AM ESTOxygen Yeumckvqrv44%08/02/2025 10:41 AM ESTInhaled Oxygen Concentration--Ldndgc16 kg (141 lb)08/02/2025 10:41 AM EST Qfqkzx836.6 cm (5' 4 )08/02/2025 10:41 AM ESTBody Mass Index24. 10:41 AM EST Plan of Treatment DateTypeDepartmentCare Team (Latest Contact Info)Rjluancrjar90/06/2026 11:00 AM ESTOffice Visit [facility] [address] [facility] [address] [place] [address] Cassius Patel MD 112 [facility] 100 [place] [address] Health MaintenanceDue DateLast DoneCommentsCOVID-19 Vaccine ( season), 07/22/2024, 09/06/2023, Additional history exists Diabetes: Hemoglobin A1C6004/06/2025, 01/13/2025, 03/26/2024, Additional history existsDiabetes: Retinopathy Unplwsbpd85, 04/16/2024, 10/16/2023, Additional history existsDiabetes: Urine Protein Rsvzwipdp16/03/2026 08/02/2025, 06/24/2024, 06/24/2024, Additional history existsMedicare Annual Wellness (AWV)6110/02/2024, 07/16/2024, 03/26/2024, Additional history existsPneumococcal Vaccine: 65+ VjackEgmbheftm71/26/2021, 04/25/2015, 04/21/2015, Additional history existsInfluenza CrcghwqBgtehijqk52/07/2025, 08/05/2024, 07/11/2023, Additional history exists Procedures Procedure NamePriorityDate/TimeAssociated DiagnosisCommentsDIABETIC RETINOPATHY SCREENING - OU - BOTH OZGZIqiwxdk09/03/2025 3:32 PM ESTALL CBC WITH AUTO DIFF Vsumlfc0108/02/2025 11:54 AM EST ALL BASIC METABOLIC UWYIUGmicnhw26/03/2025 11:54 AM EST TBH MICROALB CREAT RATIO LSKBKXHkjkguy88/03/2025 11:43 AM EST BI MAMMOGRAM SCREENING TOMOSYNTHESIS RIGHT05/25/2025 10:02 AM EDT HEMOGLOBIN E2KTvhodbr15/08/2025 8:32 AM EDT Type 2 diabetes mellitus with stage 3b chronic kidney disease, without long-term current use of insulin ([facility]) MICROALBUMIN / CREATININE URINE ZYJUPDvyxpsq97/21/2022 from Last 3 Months or Most Recently Relevant to Health Maintenance Results * Diabetic Retinopathy Screening - OU - Both Eyes (08/02/2025 3:32 PM EST) Anatomical RegionLateralityModalityHeadOther Narrative Authorizing ProviderResult TypeResult StatusKenrebeca Girard [facility] PHOTOGRAPHYFinal Result * ALL CBC WITH AUTO DIFF (08/02/2025 11:54 AM EST)ComponentValueRef RangeTest MethodAnalysis TimePerformed AtPathologist SignatureTBH WBC7.14.0 - 11.0 10 3/uLTBHTBH RBC4.624.20 - 5.40 10 6/uLTBHTBH HGB14.712.0 - 16.0 g/dLTBHTBH HCT 44.836.0 - 48.0 %TBHTBH MCV97.081.0 - 99.0 fLTBHTBH MCH31.826.7 - 34.0 pgTBH TBH MCHC32.829.9 - 35.2 g/dLTBHTBH RDW13.811.0 - 15.0 %TBHTBH VPE868148 - 450 10 3/uLTBHTBH MPV10.49.5 - 13.5 [...] Data Provider CLINISYNCFinal ResultPerforming OrganizationAddressty/State/ZIP CodePhone Number [facility] * (ABNORMAL) ALL BASIC METABOLIC PANEL (08/02/2025 11:54 AM EST)ComponentValue Ref RangeTest MethodAnalysis TimePerformed AtPathologist DtzanpnnjAEXVVG514202 - 145 mmol/LTBHPOTASSIUM4.43.5 - 5.1 mmol/BEGVNXPYENDR23886 - 107 mmol/LTBH CARBON HOZJWOH90.521.0 - 32.0 mmol/LTBHANION GAP16.7SMQNVJYTKR8756 - 106 mg/dL TBHBLOOD UREA RJZUHMTS57.0(H)7.0 - 18.0 mg/dLTBHCREATININE1.31(H)0.55 - 1.02 mg/dLTBHTBH EGFR-AF CRKGDBPG99(L)>=60 mL/min/1.73m 2TBHTBH EGFR-NON AF PSEIPYXA08(L)>=60 mL/min/1.73m 2TBHBUN CREATININE RATIO28.8LXHPJDLQFT7.68.5 - 10.1 mg/dLTBHSpecimen (Source)Anatomical Location / LateralityCollection Method / VolumeCollection TimeReceived Time08/02/2025 11:54 AM EST08/02/2025 11:55 AM EST Narrative CLINISYAL - 08/02/2025 12:28 PM EST Authorizing ProviderResult TypeResult StatusGeneric External Data Provider CLINISYNCFinal ResultPerforming OrganizationAddressty/State/ZIP CodePhone Number [facility] * TB[facility] MICROALB CREAT RATIO RANDOM (08/02/2025 11:43 AM EST)ComponentValueRef RangeTest MethodAnalysis TimePerformed AtPathologist SignatureMICROALBUMIN URINE RANDOM<1.3<=30.0 mg/dLTBHCREATININE URINE VCGZJO99.1220.00 - 300.00 mg/dLTBHSpecimen (Source)Anatomical Location / LateralityCollection Method / VolumeCollection TimeReceived Time08/02/2025 11:43 AM EST08/02/2025 11:57 AM EST Narrative CLINISYNC - 08/02/2025 12:28 PM EST Authorizing ProviderResult TypeResult ChandanCassius Willis Jorge [facility] EDMONDLINISYNCFinal ResultPerforming OrganizationAddressCity/State/ZIP CodePhone Number [facility] * Right screening mammogram with tomosynthesis (05/25/2025 10:02 AM EDT) Anatomical RegionLateralityModalityBreastRightMammographySpecimen (Source) Anatomical Location / LateralityCollection Method / VolumeCollection Time Received Time05/25/2025 10:02 AM EDT Narrative 05/25/2025 10:01 AM EDT THIS EXAM WAS PERFORMED AT [facility] ??1935 [id number] EXAM: MAMM SCREENING UNILAT RT W CAD, [...] MAMM 1 YR FDA Accredited Performing Facility: [facility] - Mammography/DEXA Imaging [address] [facility] [id number] Procedure Note Radiology, Radiologist, - 05/25/2025 THIS EXAM WAS PERFORMED AT [facility] Yadira STARBUCK 1935 [id number] EXAM: MAMM SCREENING UNILAT RT W CAD, [...] MAMM 1 YR FDA Accredited Performing Facility: [facility] - Mammography/DEXA Imaging [address] [facility] [address] Authorizing ProviderResult TypeResult StatusEdandry Patel MDIMVilma BI PROCEDURES Final Result * (ABNORMAL) Hemoglobin [...] Volume Collection TimeReceived TimeBloodVenous blood specimen / Hzgvlos5704/06/2025 8:32 AM EDT04/06/2025 8:33 AM EDT Narrative Resulting Agency Comment Performing Organization Information ?Site ID: [id number] ?Name: [facility] ?Address: [address] [place], [place] [address] , [address] [place] [phone] ?Director: Dami Rossi MD Authorizing ProviderResult TypeResult StatusCassius RAMOS BLOOD ORDERABLESFinal ResultPerforming OrganizationAddressCity/State/ZIP CodePhone Number [facility] * Microalbumin / creatinine urine ratio (08/20/2022)ComponentValueRef [...] Most Recently Relevant to Health Maintenance Insurance MemberSubscriberPlan / Payer (Effective 2021-Present)Name:Daysi Hood Relation to Subscriber:SelfName:Daysi Hood Payer ID:Not on file Group ID:[id number] Type:Not on file Address: [facility] [id number] [phone] Advance Directives TypeDate RecordedPatient RepresentativeExplanationAdvance Directives and Living Will07/28/2024 3:34 [id number] living Will * DNR (Latest Code Status on File) Date ActivatedDate InactivatedComments05/29/2024 8:16 AM Care Teams Team MemberRelationshipSpecialtyStart DateEnd Date Cassius Patel MD [address] [place] [address] (Fax) PCP - GeneralFamily Mfddvkpv18/17/24 Cassius Patel MD [address] [facility] [address] [place] [address] (Fax) PCP - [place] MA05/31/25 Erasmo Johnson MD [facility]5 [place] [phone] (Fax) CardiologistFamily Ejbygycx50/17/24 Saurav Girard MD [address] [place] [address] Owsidsvcykupj56/17/24 Suzanna Olmos, ISABELLE [address] [address] Registered NurseFamily Toqicipn68/6/24
--- OUTSIDE RECORDS SUMMARY | 2025-08-10 10:17 | XMS_ITS | Clinical Summary ---
Author Organization [facility] Address [address] [place] [address] Phone Care Team Providers Care Warper Tender Name Role Phone Unavailable Primary Care Provider Unavailabl e Social History Tobacco UseTypesPacks/DayYears UsedDateSmoking Tobacco: Never Assessed CommentsUnknownSex and Gender InformationValueDate RecordedSex Assigned at Not on fileLegal JehBukjdf22/25/2022 5:26 PM ESTGender IdentityNot on fileSexual OrientationNot on file Plan of Treatment Not on file
--- OUTSIDE RECORDS SUMMARY | 2025-08-10 10:17 | XMS_ITS | Encounter Summary ---
Author Organization [facility] Address [address] [place] [address] Care Team Providers Care Substation Engineer Name Role Phone Cassius Ptael MD Primary Care Provider Erasmo Cole MD Unavailable [phone] Saurav Girard MD Unavailable Suzanna Olmos RN Unavailable Cassius Patel MD Unavailable [phone] Encounter Details DateTypeDepartmentCare Team (Latest Contact Info)Saiekrvrqtv18/03/2025amboo flowsheet [facility] [address] Medicine 112 [facility] 100 [place] [address] Cassius Patel MD 112 [facility] [address] [place] [address] Social History Tobacco UseTypesPacks/DayYears UsedDateSmoking Tobacco: NeverPassive Smoke Exposure: NeverSmokeless Tobacco: NeverAlcohol UseStandard Drinks/WeekComments Never0 (1 standard drink = 0.6 oz pure alcohol)lysuelxwX4975 Health Literacy AnswerDate RecordedHow often do you need to have someone help you when you read instructions, pamphlets, or other written material from your doctor or pharmacy? Oqukfhzzo08/17/2024Humiliation, Afraid, Rape, and Kick questionnaireAnswerDate RecordedWithin the [...] with Friends and FamilyNot on file04/01/2025 Attends Alevism ServicesNot on file04/01/2025tive Member of Clubs or OrganizationsNot on file04/01/2025ttends Club or Organization MeetingsNot on file04/01/2025re you , , , , never , or living with a partner?Lkwmjtb0404/01/2025UDIT-CAnswerDate RecordedQ1: How often do you have a [...] hard at all06/16/2024HQ-2AnswerDate Recorded Patient Health Questionnaire-2 Ksxer66110/02/2024[facility] [place] of Occupational Health - Occupational Stress QuestionnaireAnswerDate [...] steady place to sleep or slept in [facility] (including now)?No 02/18/2023Housing Stability Vital [...] InformationValueDate RecordedSex Assigned at BirthNot on fileLegal VyzMpzxjs78/15/2023 6:48 PM EDTGender Identity Not on fileSexual OrientationNot on filedocumented as of this encounter Functional Status * Over the past 2 weeks, how often have you been bothered by any of the following problems?QuestionAnswerDate of AssessmentAuthorLittle interest or pleasure in doing thingsNot at all08/02/2025 10:00 AM Raquel Mauro MA Feeling down, depressed, or hopelessNot at all08/02/2025 10:00 AM NjDecember, MAPatient Health Questionnaire-2 Qbfeh08510/02/2024 10:00 AM Raquel Mauro MA * QuestionAnswerDate [...] all08/02/2025 10:00 AM NjDecember, MAPatient Health Questionnaire-9 Nhcgp03710/02/2024 10:00 AM Raquel Mauro MA documented as of this encounter Plan of Treatment DateTypeDepartmentCare Team (Latest Contact Info)Szqgtonrsaq29/06/2026 11:00 AM ESTOffice Visit [facility] 112 [facility] 100 [place] [address] Cassius Patel MD 112 [facility] 100 [place] [address] documented as of this encounter Visit Diagnoses Not on filedocumented in this encounter Additional Health Concerns AssessmentNoted TimePHQ-9 Depression Total Score: 10:00 AM EST documented as of this encounter Care Teams Team MemberRelationshipSpecialtyStart DateEnd Date Cassius Patel MD [address] [address] PCP - GeneralFamily Bdhmrfpc69/17/24 Cassius Patel MD [address] [address] PCP - [place]05/31/25 Erasmo Cole MD [address] [place] [phone] CardiologistFamily Uokzfkld11/17/24 Saurav Girard MD [address] [place] [address] Jtdwogmsmeabz87/17/24 Suzanna Olmos, ISABELLE [address] [address] Registered NurseFamily Msfddyou67/6/24documented as of this encounter
--- OUTSIDE RECORDS SUMMARY | 2025-08-10 10:18 | XMS_ITS | Clinical Summary ---
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 45 tablet 4Active Additional Information Patient taking differently: 20 mgoralDaily, Reported on 07/06/2025 HYDROcodone-acetaminophen (Methuen) 5-325 mg tablet Take 1 tablet by mouth every 4 (four) hours if needed.Active Jardiance 10 mg Indications:Chronic systolic congestive heart failure (CMS/HCC)TAKE ONE TABLET BY MOUTH EVERY DAY DIRECTED 90 tablet 5Active lisinopril 2.5 mg tablet Indications:Essential hypertensionTake 1 tablet (2.5 mg) by mouth once daily as directed. 90 tablet 503/6Active ezetimibe (Zetia) 10 mg tablet Indications:Coronary artery disease involving [place] coronary artery of [place] heart without angina pectorisTake 1 tablet (10 mg) by mouth in the morning. 90 tablet /6Active carvedilol (Coreg) 3.125 mg tablet Indications:Essential hypertensionTake 1 tablet (3.125 mg) by mouth with breakfast and with evening meal. 180 tablet /6Active acetaminophen (Tylenol) 325 mg capsule Take 325 mg by mouth every 6 (six) hours if needed.Active spironolactone (Aldactone) 25 mg tablet Indications:Edema, unspecified typeTAKE ONE-HALF TABLET BY MOUTH ONCE DAILY DIRECTED. 45 tablet 5Active Additional Information Patient taking differently: 12.5 mg oral Daily, Reported on 08/09/2025 atorvastatin (Lipitor) 40 mg tablet Indications:Coronary artery disease due to lipid rich plaqueTAKE 1 TABLET BY MOUTH AT BEDTIME 90 tablet 5Active sennosides-docusate sodium (Genet-Colace) 8.6-50 mg tablet Take 1 tablet by mouth in the morning.ctive apixaban (Eliquis) 2.5 mg tablet Indications:Paroxysmal atrial fibrillation (CMS/HCC)Take 1 tablet (2.5 mg) by mouth two times daily. 60 tablet 5Active doxycycline (Monodox) 100 mg capsule Indications:Cardiac pacemaker in situTake 1 capsule (100 mg) by mouth two times daily for 14 days. Take with at least 8 ounces (large glass) of water, do not lie down for 30 minutes after 28 capsule /5Active calcium carb,cit-mag cit,ox-D3 300 mg-150 mg- 400 unit tablet as directed Eyvxgl6408/09/2025Discontinued(Duplicate order) apixaban (Eliquis) 2.5 mg tablet Indications:Paroxysmal atrial fibrillation (CMS/HCC)Take 1 tablet (2.5 mg) by mouth two times daily. 180 tablet /Discontinued aspirin 81 mg EC tablet Take 81 mg by mouth in the morning.08/09/2025Discontinued(Med List Cleanup) potassium chloride (Klor-Con) 20 mEq packet Take 20 mEq by mouth if needed.08/09/2025Discontinued(Med List Cleanup) Active Problems ProblemNoted DateDiagnosed DateParoxysmal atrial /06/2025 Overview (07/06/2025): PAROXYSMAL ATRIAL FIBRILLATION ,Rendering provider NPI :[id number] Chronic tcrhrnlxfxir41/22/2025Controlled substance agreement tflnyt9107/28/2024 History of breast ccsbcr9607/28/2024 Overview (09/14/2024): Left Mastectomy 2002 Mobitz type 2 second degree heart block07/16/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 Otherwise, stable gait and no unsteadiness. No need for cane/walker. Routine general medical examination at health care gabouuru16/22/2023 Overview (03/20/2023): Last Assessment & Plan: Labs, vaccinations and safety reviewed. Stage 3b chronic kidney txhidxh8502/11/2023 Overview (03/20/2023): Last Assessment & Plan: Gfr has been stable will cont to monitor Lumbosacral spondylosis without ljpkakxijl61/15/2023 Overview (03/20/2023): Last Assessment & Plan: Currently stable Diabetic renal ctjwvkd2302/11/2023 Overview (03/20/2023): Last Assessment & Plan: Most recent hga1c 6.2 given advanced a ge will cont to manage conservatively., and check A1c q 12 months Cont with healthy diet Cardiac LV ejection fraction of 20-34%02/11/2023 Overview (03/20/2023): Last Assessment & Plan: Per cardiology Essential imigczzbtfyj83/15/2023 Overview (03/13/2024): Last Assessment & Plan: Stable. On GDMT for HFrEF. BP is stable. Denies orthostasis. Kkgtqscat92/24/2022Generalized ischemic myocardial sqljfkvjwoo98/24/2022 Qdgirmyatvyyyi66/24/2022Low blood /24/2022bnormal results of cardiovascular function beppyyj4106/20/2021Other chronic pain08/16/2020Ventricular oygoaebaouh25/25/2019 Overview (03/20/2023): Last Assessment & Plan: Per cardiology Chronic systolic heart krsxxqo1812/22/2018 Overview (03/20/2023): Last Assessment & Plan: Per cardiology Decreased estrogen level12/18/2018Primary malignant neoplasm of yqzpfp8511/30/2015 Type 2 diabetes mellitus without ndbheuglvoii36/05/2016Congestive heart failure 04/30/2013Coronary qxbitpgxnwpadrx55/01/2013Heart block04/30/2013Nonrheumatic tricuspid valve ihhoxzae76/01/2013Primary atiodcpoaqcejx64/01/2013 Overview (08/25/2024): ISCHEMIC CARDIOMYOPATHY Cardiac pacemaker in situ04/28/2013 Encounters DateTypeDepartmentCare LgivNodolyzmvnx26/10/2025 8:30 AM EST - 08/09/2025 10:30 AM ESTSurgery [facility] V[facility] [address] [place] [id number] Cam Terrell MD Biventricular pacemaker xfmxcrb7208/09/2025 7:01 AM EST - 08/09/2025 11:47 AM EST Hospital Encounter [facility] Vascular Lab [address] [place] [address] Cam Terrell MD Cardiac pacemaker in situ (Primary Dx); Chronic systolic heart failure (CMS/HCC); Abnormal results of cardiovascular function studies Discharge Disposition: Home or Self Care (01)08/09/20250140Dyltwb45/03/2025Travel 07/16/2025Refill [facility] [address] [place] [facility] [place] [address] Cam Terrell MD Paroxysmal atrial fibrillation (CMS/HCC)07/06/2025 2:15 PM EDTOffice Visit [facility] [address] [facility] [place] [address] Cam Terrell MD Cardiac pacemaker in situ (Primary Dx)07/06/2025 2:00 PM EDTAncillary Procedure [facility] [address] [place] [facility] [place] [address] Encounter for implantable defibrillator reprogramming or check07/06/2025Orders Only [facility] [address] [place] [address] Quin Campos MA Chronic systolic heart failure (CMS/HCC) (Primary Dx)07/06/2025Orders Only [facility] [address] [facility] [place] [address] Quin Campos MA Encounter for pre-operative examination (Primary Dx)05/11/2025 9:30 AM EDT Ancillary Procedure [address] [place] [address] Encounter for implantable defibrillator reprogramming or checkfrom Last 3 Months Immunizations ImmunizationAdministration DatesNext DueInfluenza, High Dose Seasonal, Preservative Free07/05/2017,07/10/2016,10/04/2015,06/26/2013Influenza, High-dose Seasonal, Quadrivalent, Preservative Free07/19/2022,08/04/2021,07/05/2017 Influenza, Seasonal, Quadrivalent, Hajveofsuq52/05/2021,06/27/2020Influenza, injectable, quadrivalent, preservative free06/23/2018Influenza, seasonal, injectable, preservative free, 6 moonths & older06/28/2020Influenza, seasonal,quadrivalent, preservative free06/30/2014Influenza, trivalent, ydpqsbutfr86/24/2019Moderna 12 YR UP Vaccine BiValent Dcbwzpj0008/15/2022Moderna SARS-CoV-2 Rvacdaozruu82/27/2021,11/29/2020,1Pneumococcal Conjugate PCV 13012/23/2020,04/21/2015Pneumococcal Polysaccharide BHU847005/26/2013Unspecified Sars-Cov-2 Bcilbhplzmg98/13/2022Zoster, Wcyytvuewzj39/24/2019,12/18/2018 Family History Medical HistoryRelationNameCommentsCoronary artery diseaseOtherRelationName StatusCommentsFatherDeceasedMotherDeceasedOther Social History Tobacco UseTypesPacks/DayYears UsedDateSmoking Tobacco: NeverSmokeless Tobacco: Never Tobacco Cessation:Counseling Given: Not Answered Alcohol UseStandard Drinks/WeekCommentsNot Currently0 (1 standard drink = 0.6 oz pure alcohol)UT Safety & EnvironmentAnswerDate RecordedFear of Current or Ex-PartnerNot on file11/21/2023Emotionally AbusedNot on file11/21/2023hysically AbusedNot on file11/21/2023Sexually AbusedNot on file11/21/2023hysically or Sexually AbusedNot on file11/21/2023CommentsUnknownSex and Gender InformationValueDate RecordedSex Assigned at VqslmBwglli24/02/2024 11:11 PM EDT Legal QhtPqlkmv42/29/2022 11:05 PM EDTGender TuadhmdoVphthq94/02/2024 11:11 PM EDTSexual OrientationChoose not to /04/2025 9:18 PM EDT Last Filed Vital Signs Vital SignReadingTime TakenCommentsBlood Azbjmzjx638/6011 11:30 AM EST Nzbyi901208/09/2025 11:30 AM ESTTemperature--Respiratory Sbhi3918 11:30 AM ESTOxygen Xxfhhemtfd88%08/09/2025 11:30 AM ESTInhaled Oxygen Concentration-- Tupzoh14 kg (141 lb)08/09/2025 7:14 AM JHZPxisrn070.6 cm (5' 4 )08/09/2025 7:14 AM ESTBody Mass Index24. 7:14 AM EST Plan of Treatment DateTypeDepartmentCare Team (Latest Contact Info)Imixlauhjmn82/20/2025 1:20 PM ESTFollow-Up [facility] [address] [place] [address] Lei Mendoza, HEAD NECK SURGEON [address] [place] [address] Health MaintenanceDue DateLast DoneCommentsMedicare Annual Wellness (AWV) 1935Diabetes: Retinopathy Qqxehfsnk61/23/1947Depression Screening 1947Fall Risk Awrvdyvos02/23/2002Diabetes: Hemoglobin A1C07/07/2025 04/06/2025, 01/13/2025, 03/26/2024, Additional history existsCOVID-19 Vaccine ( season), 07/22/2024, 09/06/2023, Additional history existsAdult Rxlshop31/06/2024Zoster VaccinesCompleted 03/23/2019, 12/18/2018Pneumococcal Vaccine: 50+ DqodmIdqalzhhg86/26/2021, 04/21/2015, 05/26/2013Influenza GwlbuhwCykclbomv16/07/2025, 08/05/2024, 07/11/2023, Additional history existsHIB VaccinesAged OutNo longer eligible based on patient's age to complete this topicHPV VaccinesAged OutNo longer eligible based on patient's age to complete this topicIPV VaccinesAged OutNo longer eligible based on patient's age to complete this topicMeningococcal B VaccineAged OutNo longer eligible based on patient's age to complete this topic Meningococcal VaccineAged OutNo longer eligible based on patient's age to complete this topicRotavirus VaccinesAged OutNo longer eligible based on patient's age to complete this topic Medical Devices ImplantedTypeAreaManufacturerDevice IdentifierShelf Expiration DateModel / Serial / Mattie Guzman S 60 - [id number] - [id number] Implanted:Qty: 1 on 08/09/2025 [facility]: [id number] / [id number] / Pacer,Mark,Hf-T - [id number] - [id number] Implanted:Qty: 1 on 08/09/2025 by [facility] CenterPacemakerRight: [id number] / [id number] / Procedures Procedure NamePriorityDate/TimeAssociated DiagnosisCommentsECG 12-LEADRoutine 08/09/2025 10:09 AM EST BIVENTRICULAR PACEMAKER VAPYYBTUmfupso68/10/2025 9:42 AM EST Chronic systolic heart failure (CMS/HCC) ECG 12-ZBVPUomlsjw76/10/2025 8:01 AM EST CARDIAC DEVICE CHECK - IN CLINIC - PACEMAKER DUAL CHAMBER W/ PROGRoutine 07/06/2025 4:23 PM EDT Encounter for implantable defibrillator reprogramming or check CARDIAC DEVICE CHECK - IN CLINIC - PACEMAKER DUAL CHAMBER W/ PROGRoutine 05/12/2025 10:29 AM EDT Encounter for implantable defibrillator reprogramming or check from Last 3 Months Results * ECG 12 lead (08/09/2025 10:09 AM EST) Only the most recent of2 resultswithin the time period is included. ComponentValueRef RangeTest MethodAnalysis TimePerformed AtPathologist Signature Ventricular Jydj78DIRMA MUSEAtrial Unvk10XGBUX MUSEPR Iyuctdax445yfQH MUSEQRS NCGOWGJU090aqLV MUSEQT Pftjkkby154niDH MUSEQTC CALCULATION(BAZETT)491msGE MUSE U-Jgwu-25rhnlvpnRA MUSET Wave Rlyx272ygodwdqXY MUSESpecimen (Source)Anatomical Location / LateralityCollection Method / VolumeCollection TimeReceived Time 08/09/2025 10:02 AM EST08/09/2025 11:17 AM EST Impressions GE MUSE - 08/09/2025 11:17 AM EST Atrial-sensed ventricular-paced rhythm Abnormal ECG When compared with ECG of 09-AUG-2025 07:51, Vent. rate has decreased BY ?? 5 BPM Confirmed by MD DONNA, EH ([id number]) on 08/09/2025 11:17:12 AM Narrative Procedure Note Eric Dangelo MD - 08/09/2025 IMPRESSION: Atrial-sensed ventricular-paced rhythm Abnormal ECG When compared with ECG of 09-AUG-2025 07:51, Vent. rate has decreased BY 5 BPM Confirmed by MD DONNA, EHAB ([id number]) on 08/09/2025 11:17:12 AM Authorizing ProviderResult TypeResult StatusPafabio Terrell MDECVilma ORDERABLESFinal ResultPerforming OrganizationAddressCity/State/ZIP CodePhone Number GE MUSE * BIVENTRICULAR PACEMAKER UPGRADE (08/09/2025 9:42 AM EST)Anatomical Region LateralityModalityOtherSpecimen (Source)Anatomical Location / Laterality Collection Method / VolumeCollection TimeReceived Time Impressions 08/09/2025 10:21 AM EST 1. Successful INSTALLATION COORDINATOR-P upgrade with excellent pacing and sensing parameters. [...] from the original result were not included. INSTALLATION COORDINATOR-PACEMAKER UPGRADE PROCEDURE NOTE DATE OF PROCEDURE: 08/09/25 PERFORMING PHYSICIAN: Dr. Cam Terrell CONSENT: Patient LOCATION: EP lab PROCEDURE PERFORMED: 1. INSTALLATION COORDINATOR-P upgrade on the right side Biotronik) 2. [...] using modified seldinger technique using a 5 [place] micro-puncture needle on one occasions and 0.35 wire was placed. Local infiltration of 1% Lidocaine was performed, and an incision was created in the right upper chest. Dissection was then performed using cautery down to the device pocket and it was exposed. 9 [place] Safesheaths was placed over the wire. An active fixation Biotronik pacing lead was then delivered through the 9Fsheath and Selectra IIID-65/42 sheath to the right ventricle. After confirmation of lead position on orthogonal views (JUNIOR and ENGLISH) to confirm septal position, the screw was [...] lead position on orthogonal views (JUNIOR and ENGLISH), the screw was activated. Good sensing parameters, [...] hemodynamically stable. COMPLICATIONS: None. Authorizing ProviderResult TypeResult StatusEncompass Rehabilitation Hospital of [facility] ELECTROPHYSIOLOGY PROCEDURESFinal Result * CARDIAC DEVICE CHECK - IN CLINIC - PACEMAKER DUAL CHAMBER W/ PROG (07/06/2025 4:23 PM EDT) Only the most recent of2 resultswithin the time period is included. ComponentValueRef RangeTest MethodAnalysis TimePerformed AtPathologist Signature BSA1.7m2GE PACS CARDIOAnatomical RegionLateralityModalityOtherSpecimen (Source) Anatomical Location / LateralityCollection Method / VolumeCollection Time Received Time Narrative 07/12/2025 9:46 AM EDT Normal device function Authorizing ProviderResult TypeResult [facility] IMPLANTABLE CARDIAC DEVICE PROCEDURESFinal Result from Last 3 Months Insurance Care Teams Team MemberRelationshipSpecialtyStart DateEnd Date Cassius Patel MD [address] [place] [address] [facility] - Fcailpf86/26/24
--- OUTSIDE RECORDS SUMMARY | 2025-08-10 10:18 | XMS_ITS | Clinical Summary ---
Author Organization [facility] Address [address] [place] [address], [address] [place] [address] Care Team Providers Care Blood And Plasma Laboratory Assistant Name Role Phone Unavailable Primary Care Provider Unavailabl e Social History Tobacco UseTypesPacks/DayYears UsedDateSmoking Tobacco: Never Assessed CommentsUnknownSex and Gender InformationValueDate RecordedSex Assigned at Not on fileLegal WmsFqcksl38/12/2013 5:19 PM EDTGender IdentityNot on fileSexual OrientationNot on file Plan of Treatment Not on file
--- OUTSIDE RECORDS SUMMARY | 2025-08-10 10:18 | XMS_ITS | Clinical Summary ---
Author Organization [facility] Address [id number] [address] [place] [address] Care Team Providers Care Senior Policy Associate Name Role Phone Suzette Maddox DIRECTOR OF CAPITAL GIVING-BODY PRESSER Primary Care Pr ovider Allergies Active AllergyReactionsCriticalityNoted ZfljArkohmytIdvytzxt97/25/2024 Gnomkangkmhlvx88/25/2024 Medications MedicationSigDispense QuantityRefillsLast FilledStart DateEnd DateStatus HYDROcodone-acetaminophen [...] Problems No known active problems Encounters DateTypeDepartmentCare OiftAjnlglklglu48/25/2025 2:51 PM EDT - 05/24/2025 11:59 PM EDTHospital Encounter [facility] [address] [place] [address] Screening mammogram, encounter for; H/O left mastectomy Discharge Disposition: Home05/24/2025Travelfrom Last 3 Months Family History Medical HistoryRelationNameCommentsBreast cancerCousin 1Breast cancerCousin 2 Breast cancerCousin 3RelationNameStatusCommentsCousin 1Cousin 2Cousin 3 Social History Tobacco UseTypesPacks/DayYears UsedDateSmoking Tobacco: Never AssessedChildcare AnswerDate LjlgrwhfCmmoewnxzGefwmkt45/12/2019EmploymentAnswerDate Recorded NeftyzdnlcEyqzgpn63/12/2019Hunger ScreeningAnswerDate RecordedWithin the past 12 months we worried whether our food would run out before we got money to buy more.Never True06/24/2024Within the past 12 months the food we bought just didn't last and we didn't have money to get more.Never True06/24/2024urpose - LifeAnswerDate RecordedPurpose and direction in tlqcYnsyplq22/11/2021 CommentsNoSex and Gender InformationValueDate RecordedSex Assigned at BirthNot on fileLegal BfkHcvgqu67/06/2015 11:37 AM EDTGender IdentityNot on fileSexual OrientationNot on file Last Filed Vital Signs Vital SignReadingTime TakenCommentsBlood Pciexnww278/5609 2:01 PM EDT Zbwty4637 2:01 PM EDTTemperature--Respiratory Rate--Oxygen Rgwwlnlnxi80% 06/24/2024 2:01 PM EDTInhaled Oxygen Concentration--Sffqwd33.9 kg (143 lb) 06/24/2024 2:01 PM UJAPftiit304.6 cm (5' 4 )06/24/2024 2:01 PM EDTBody Mass Index24.55006/24/2024 2:01 PM EDT Plan of Treatment Health MaintenanceDue DateLast DoneCommentsDepression Wbisglaht48/23/1949Tobacco Drqndkmac62/23/1949Fall Risk Qliryseek71/23/2002COVID-19 Vaccine ( season), 09/06/2023, 08/15/2022, Additional history exists Influenza Dcnprel15/01/101869/02/2024, 07/11/2023, 07/19/2022, Additional history existsDTaP,Tdap and Td Vaccines (2 - Td or Tdap) Zoster (Shingles) PrhxbipRcrmpwjio51/24/2019, 12/18/2018RSV ( or age 60+ yrs)Vuimbxffq23/21/2024 Medical Devices Not on file Procedures Procedure NamePriorityDate/TimeAssociated DiagnosisCommentsMAMM SCREENING UNILAT RT W XDEGtykroc34/25/2025 3:11 PM EDT Screening mammogram, encounter for H/O left mastectomy from Last 3 Months Results * Mammography screening unilateral right with CAD (05/24/2025 3:11 PM EDT) Anatomical RegionLateralityModalityBreastRightMammographySpecimen (Source) Anatomical Location / LateralityCollection Method / VolumeCollection Time Received Time05/25/2025 10:00 AM EDT Narrative 05/25/2025 10:01 AM EDT FEDE HOOD 1935 [id number] EXAM: MAMM SCREENING UNILAT RT W CAD, [...] MAMM 1 YR FDA Accredited Performing Facility: [facility] - [facility]ammography[facility]A [facility] [address] [id number] Procedure Note Purnima Crews MD - 05/25/2025 FEDE HOOD 1935 [id number] EXAM: MAMM SCREENING UNILAT RT W CAD, [...] MAMM 1 YR FDA Accredited Performing Facility: [facility]A [facility] [address] [facility] [id number] Authorizing ProviderResult TypeResult StatusEdandry Patel MDIMVilma MAMMOGRAPHY ORDERABLESFinal Result from Last 3 Months Insurance Care Teams Team MemberRelationshipSpecialtyStart DateEnd Date Suzette Maddox, DIRECTOR OF CAPITAL GIVING-BODY PRESSER [address] [place] [address] PCP - GeneralNurse Practitioner06/24/24
--- OUTSIDE RECORDS SUMMARY | 2025-08-10 10:18 | XMS_ITS | Encounter Summary ---
Author Organization [facility] Address [address] [place] [address] Care Team Providers Care Spare Fixer Name Role Phone Cassius Patel MD Primary Care Provider [phone] Encounter Details DateTypeDepartmentCare Team (Latest Contact Info)Vrieuqsejoy98/03/2025Travel Social History Tobacco UseTypesPacks/DayYears UsedDateSmoking Tobacco: NeverSmokeless Tobacco: NeverAlcohol UseStandard Drinks/WeekCommentsNot Currently0 (1 standard drink = 0.6 oz pure alcohol)UT Safety & EnvironmentAnswerDate RecordedFear of Current or Ex-PartnerNot on file11/21/2023Emotionally AbusedNot on file11/21/2023hysically AbusedNot on file11/21/2023Sexually AbusedNot on file11/21/2023hysically or Sexually AbusedNot on file11/21/2023CommentsUnknownSex and Gender InformationValueDate RecordedSex Assigned at TyawaCdmouc65/02/2024 11:11 PM EDT Legal WfiVctfil85/29/2022 11:05 PM EDTGender CbhscgfwMomnln54/02/2024 11:11 PM EDTSexual OrientationChoose not to bwyggmfz24/04/2025 9:18 PM EDTdocumented as of this encounter Plan of Treatment DateTypeDepartmentCare Team (Latest Contact Info)Wabfkcairkh82/20/2025 1:20 PM ESTFollow-Critical access hospital Heart at [facility] [address] [place] [address] Lei Mendoza, NETWORK TECHNOLOGY INSTRUCTOR [address] [place] [address] documented as of this encounter Visit Diagnoses Not on filedocumented in this encounter Care Teams Team MemberRelationshipSpecialtyStart DateEnd Date Cassius Patel MD [address] [place] [address] PCP - Kcnnuqy02/26/24documented as of this encounter
--- NOTE | 2025-08-10 10:36 | XR_ITS ---
The [address] [address] Patient Name: FEDE DE LEON MRN: [id number] date: 1935 Sex: F Assigned Patient Location: [facility] Current Patient Location: [facility] Accession/Order Number: [id number] Exam Date: 08/10/2025 10:30 Report Date: 08/10/2025 11:04 At the request of: MARIA DEL CARMEN POLANCO MD Procedure: XR chest 2V PA AND LATERAL CHEST: CLINICAL HISTORY: Follow-up after pacemaker insertion yesterday Z95.0 COMPARISON: None There are median sternotomy wires. A right-sided pacemaker is present with 3 intact leads. There is no focal parenchymal consolidation, effusion or pneumothorax. The cardiac, hilar and mediastinal silhouettes are within normal limits. There is no vascular congestion. The visualized bony thorax is intact. Minor degenerative change is seen at the spine. XR/XR chest 2V IMPRESSION: SATISFACTORY APPEARANCE OF PACEMAKER. NO POSTPROCEDURE PNEUMOTHORAX. Impression dictated by: Sulma Person M.D. 08/10/2025 11:04 AM Dictation Location: [place] [address] Electronically authenticated by: [id number] Y Date: 08/10/2025 11:04
== END 2025-08-10 10:10 | disposition home or self-care (01) ==
LOC: RAD 10:15
PROVIDERS: PCP Family Medicine; Visit Provider Internal Medicine Cardiovascular Disease
DX: Z98.890 Other specified postprocedural states (principal); Z95.0 Presence of cardiac pacemaker
CPT/HCPCS: 71046